=== PATIENT | female | born 1950 | race Caucasian/White ===

== ENCOUNTER → 2021-11-17 | Outpatient (CLI) | payer MEDICARE, OTHER, SELFPAY ==
[2021-11-17 17:09] LABS: Absolute Lymphocyte Count 2.11 X10^3/uL (0.83-4.51); Absolute Neutrophil Count 4.9 X10^3/uL (2.0-7.7); Basophil# 0.05 X10^3/uL; Basophil% 0.6 % (0-1); Eosinophils% 1.3 % (0-5); Hematocrit 43.8 % (37-47); Hemoglobin 15.3 g/dL (12.0-15.0); Lymphocyte # 2.11 X10^3/ul (0.83-4.51); Mean Corp Hgb Conc 34.9 g/dL (32-36); Mean Corpuscular Hgb 34.5 pg (27.0-32.0); Mean Corpuscular Volume 98.6 fL (81-99); Mean Platelet Vol. 8.9 fl (6.2-12.0); Monocyte# 0.62 X10^3/uL; Monocyte% 7.9 % (0-10); NRBC Flagged by Analyzer 0 % (0-5); Neutrophil # 4.93 X10^3/uL (2.7-7.7); Neutrophil % 63.1 % (47-70); Platelet Count 247 K/mm3 (150-450); RBC Distribution Width CV 12.2 % (11.6-14.6); RBC Distribution Width SD 44.5 fl (35.1-43.9); Red Blood Count 4.44 M/mm3 (4.2-5.4); White Blood Count 7.8 K/mm3 (4.4-11.0)
[2021-11-17 17:55] LABS: ALB/GLOB Ratio 1.2 RATIO (0.9-2.4); AST(SGOT) 20 U/L (15-37); Alanine Aminotransfer ALT/SGPT 22 U/L (13-56); Albumin, Serum 3.8 g/dL (3.2-5.0); Alkaline Phosphatase 111 U/L (45-117); Anion Gap 8 (5-15); BUN 14 mg/dL (7-18); BUN/Creat Ratio 14.1 RATIO (10-20); Calcium,Total 9.2 mg/dL (8.5-10.1); Chloride 105 mmol/L (98-107); Creatinine, Serum 0.99 mg/dL (0.55-1.02); EST Glomerular Filtration Rate 59 mL/min (>60); Est Glom Filt Rate - Afr Amer 71 mL/min (>60); Globulin 3.3 g/dL (2.2-4.2); Glucose 107 mg/dL (74-106); Potassium 3.5 mmol/L (3.5-5.1); Protein, Total 7.1 g/dL (6.4-8.2); Sodium Level 142 mmol/L (136-145); Thyroid Stim Hormone (TSH) 0.74 uIU/mL (0.358-3.74)
[2021-11-18 08:48] LABS: Hepatitis C Antibody Non-Reactive (Nonreactive)
== END | disposition home or self-care (01) ==
LOC: POLAB3 14:31
PROVIDERS: PCP Family Medicine Geriatric Medicine; Visit Provider Family Medicine Geriatric Medicine
DX: R53.83 Other fatigue (principal); Z13.89 Encounter for screening for other disorder
CPT/HCPCS: 36415; 80053; 84443; 85025; 86803

== ENCOUNTER → 2022-02-17 | Outpatient (CLI) | payer MEDICARE, OTHER, SELFPAY ==
[2022-02-17 17:05] LABS: Absolute Lymphocyte Count 1.44 X10^3/uL (0.83-4.51); Absolute Neutrophil Count 2.7 X10^3/uL (2.0-7.7); Basophil# 0.03 X10^3/uL; Basophil% 0.6 % (0-1); Eosinophil# 0.09 X10^3/uL; Eosinophils% 1.9 % (0-5); Hematocrit 39.7 % (37-47); Hemoglobin 13.4 g/dL (12.0-15.0); Lymphocyte # 1.44 X10^3/ul (0.83-4.51); Lymphocyte % 30.4 % (19-41); Mean Corp Hgb Conc 33.8 g/dL (32-36); Mean Corpuscular Hgb 33.2 pg (27.0-32.0); Mean Corpuscular Volume 98.3 fL (81-99); Mean Platelet Vol. 9.7 fl (6.2-12.0); Monocyte# 0.44 X10^3/uL; Monocyte% 9.3 % (0-10); NRBC Flagged by Analyzer 0 % (0-5); Neutrophil # 2.73 X10^3/uL (2.7-7.7); Neutrophil % 57.6 % (47-70); Platelet Count 231 K/mm3 (150-450); RBC Distribution Width CV 12.6 % (11.6-14.6); RBC Distribution Width SD 45.8 fl (35.1-43.9); Red Blood Count 4.04 M/mm3 (4.2-5.4); White Blood Count 4.7 K/mm3 (4.4-11.0)
[2022-02-17 17:40] LABS: Vitamin D,25 Hydroxy 46.1 ng/mL
[2022-02-17 18:06] LABS: ALB/GLOB Ratio 1.1 RATIO (0.9-2.4); AST(SGOT) 21 U/L (15-37); Alanine Aminotransfer ALT/SGPT 31 U/L (13-56); Albumin, Serum 3.5 g/dL (3.2-5.0); Alkaline Phosphatase 115 U/L (45-117); Anion Gap 6 (5-15); BUN 13 mg/dL (7-18); BUN/Creat Ratio 15.5 RATIO (10-20); Calcium,Total 8.7 mg/dL (8.5-10.1); Chloride 105 mmol/L (98-107); Creatinine, Serum 0.84 mg/dL (0.55-1.02); EST Glomerular Filtration Rate 71 mL/min (>60); Est Glom Filt Rate - Afr Amer 86 mL/min (>60); Globulin 3.1 g/dL (2.2-4.2); Glucose 172 mg/dL (74-106); Protein, Total 6.6 g/dL (6.4-8.2); Sodium Level 140 mmol/L (136-145); Thyroid Stim Hormone (TSH) 6.97 uIU/mL (0.358-3.74)
== END | disposition home or self-care (01) ==
LOC: POLAB3 15:03
PROVIDERS: PCP Family Medicine Geriatric Medicine; Visit Provider Family Medicine Geriatric Medicine
DX: E11.65 Type 2 diabetes mellitus with hyperglycemia (principal); I10 Essential (primary) hypertension; E55.9 Vitamin D deficiency, unspecified
CPT/HCPCS: 36415; 80053; 82306; 84443; 85025

== ENCOUNTER → 2022-03-03 | Outpatient (CLI) | payer MEDICARE, OTHER, SELFPAY ==
--- NOTE | 2022-03-03 14:24 | BD_ITS ---
STUDY: DUAL ENERGY X-RAY ABSORPTIOMETRY / DXA REASON FOR EXAM: Female, 71 years old. [id number] TECHNIQUE: Bone Mineral Density (BMD) measurements of lumbar spine and bilateral hips were obtained. COMPARISON: None. FINDINGS: Lumbar Spine (L1-L4): g/cm2 (1.125) / T-score (1.3) / Z-score (3.4) Findings are suggestive of normal bone density with a low fracture risk. Left Femur Total: g/cm2 (0.988) / T-score (0.4) / Z-score (1.9) Left Femoral Neck: g/cm2 (0.820) / T-score (-0.3) / Z-score (1.6) Right Femur Total: g/cm2 (0.960) / T-score (0.1) / Z-score (1.7) Right Femoral Neck: g/cm2 (0.823) / T-score (-0.2) / Z-score (1.6) BD/Dexa Bone Density Study IMPRESSION: The patient is considered normal as outlined below according to World [employer] Organization (WHO) criteria with a low fracture risk. Reference Information: The T-score is the number of standard deviations above or below the standard which is normal for young adults at their peak bone mineral density. The World Health Organization (WHO) interprets the T-scores as follows: Above -1 Normal bone density Between -1 and -2.5 Osteopenia Equal to / or below -2.5 Osteoporosis As a practical clinical guideline, osteopenia may be graded as follows: Mild -1 through -1.5 Moderate -1.6 through -2.0 Severe -2.1 through -2.4 The Z-score is the number of standard deviations above or below age-matched controls. A Z-score of less than -1.5 would be considered abnormal. References: 1. NIH Osteoporosis and Related Bone Diseases www osteo.org 2. International Society for Clinical Densitometry www iscd.org 3. National Osteoporosis Foundation www nof.org Electronically Signed: Aamir Bay MD at 12:41 EST ,
== END | disposition home or self-care (01) ==
LOC: OPBD 13:57
PROVIDERS: PCP Family Medicine Geriatric Medicine; Visit Provider Family Medicine Geriatric Medicine
DX: M85.80 Other specified disorders of bone density and structure, unspecified site (principal); Z78.0 Asymptomatic menopausal state
CPT/HCPCS: 77080

== ENCOUNTER → 2022-04-14 | Outpatient (CLI) | payer MEDICARE, OTHER, SELFPAY ==
--- NOTE | 2022-04-14 12:10 | RAD_ITS ---
STUDY: X-RAY - LEFT WRIST REASON FOR EXAM: Female, 71 years old. Pain. TECHNIQUE: 3 view(s) of the wrist were obtained. COMPARISON: None. FINDINGS: Osteopenia. Normal visualized distal radius and ulna. Normal radiocarpal articulation. Normal distal radioulnar articulation. Normal carpal bones. Mild arthrosis of the radial carpal row. Mild arthrosis of the first carpometacarpal joint. Normal second through fifth carpometacarpal articulations. Normal visualized metacarpal bones. The soft tissue structures are unremarkable. RAD/Wrist min 3 Views IMPRESSION: Mild arthrosis of the radial carpal row and first carpometacarpal joint. No other abnormality. Electronically Signed: Robert Lemus, at 9:26 EST ,
[2022-04-14 13:45] LABS: Thyroid Stim Hormone (TSH) 5.96 uIU/mL (0.358-3.74)
== END | disposition home or self-care (01) ==
PROVIDERS: PCP Family Medicine Geriatric Medicine; Visit Provider Family Medicine Geriatric Medicine
DX: E03.9 Hypothyroidism, unspecified (principal); M25.532 Pain in left wrist
CPT/HCPCS: 36415; 73110; 84443

== ENCOUNTER → 2022-04-22 | Outpatient (CLI) | payer MEDICARE, OTHER, SELFPAY ==
--- NOTE | 2022-04-22 | LES_PTH ---
PATIENT: TERENCE VALDIVIA LOC: [facility] U#:[id number] AGE/SX: 71/F ROOM: RE04/22/[address]: Dr. Fer Burr MD : 1950 BED: DIS: 04/22/2022 SPEC #: [id number] RECD: 04/22/22 17:46 STATUS: GERARDO RECarlos #: [id number] CARLOS: 04/22/22 00:[address]: Fer Burr DEPT: SURGICAL PATHOLOGY RECD BY: Julia Fernández ENTERED: 04/23/22 07:37 SP TYPE: Lesion OTHR DR: Dr. Will Lim MD Tissues: Skin of eyelid, NOS Procedures: Surgery Specimen Level IV HEADER OPERATION: RLL lesion PRE-OP DIAGNOSIS: RLL lesion TISSUE SUBMITTED: RLL lesion MICROSCOPIC DIAGNOSIS RLL lesion, biopsy: Dermal chronic inflammation. Negative for malignancy. See comment. INGRIS:mitesh 04/26/2022 COMMENT Clinical correlation and appropriate follow up are necessary. Case has been reviewed in consultation with Dr. Rodas who concurs with the above diagnosis. IDC:AM MICROSCOPIC DESCRIPTION Slides are reviewed. GROSS DESCRIPTION Received in fixative is one container labeled with the patient's name and designated RLL. The specimen consists of a minute piece of de la fuente-white skin measuring 0.1 x 0.1 x 0.1 cm. The entire specimen is submitted in one cassette. / SJ:rg 04/23/2022 TC:3 CPT: 45225
== END | disposition home or self-care (01) ==
PROVIDERS: PCP Family Medicine Geriatric Medicine; Visit Provider Ophthalmology
DX: R91.1 Solitary pulmonary nodule (principal)
CPT/HCPCS: 88305

== ENCOUNTER 2022-04-30 11:08 | Emergency (ER) | payer MEDICARE, OTHER, SELFPAY ==
[2022-04-30 11:10] VITALS: BP 133/81; PULSE 75; RESP 18; TEMP 36.4; O2SAT 97; BMI 29.9
--- NOTE | 2022-04-30 11:24 | EDS_ITS ---
HPI <WILL Negrete - Last Filed: 04/30/22 12:00> History of Present Illness Chief Complaint: Back Narrative Narrative: Patient presents today with back pain that is located under her right shoulder blade that she has had constantly since Tuesday. She states that it is a constant ache and feels that the pain is worsening. The pain is aggravated by movement and not relieved by Tylenol. She states that she is in the process of moving up here from [place] and has been lifting a lot of boxes and rearranging furniture in her new house. Past medical history includes diabetes mellitus, hypertension, hypothyroidism, and depression. She denies any injury to her back, chest pain, shortness of breath, nausea, abdominal pain, vomiting, neck pain, and any tingling/pain in her extremities. [facility] <WILL Negrete - Last Filed: 04/30/22 12:00> [facility] Medical History Type 2 diabetes mellitus Home Medications cyclobenzaprine 10 mg tablet 10 mg PO BID PRN muscle spasm #14 TABLETS 04/30/22 [Rx Last Taken Unknown] levothyroxine 137 mcg tablet 137 mcg PO DAILY 04/30/22 [History Last Taken Unknown] losartan 50 mg tablet 50 mg PO DAILY 04/30/22 [History Last Taken Unknown] multivitamin 1 tab PO DAILY 04/30/22 [History Last Taken Unknown] naproxen 500 mg tablet (Naprosyn) 500 mg PO BID PRN pain #14 tabs 04/30/22 [Rx Last Taken Unknown] solifenacin 10 mg tablet 10 mg PO DAILY 04/30/22 [History Last Taken Unknown] venlafaxine 75 mg capsule,extended release 24 hr 75 mg PO DAILY 04/30/22 [History Last Taken Unknown] vitamins A,C,X-gyay-guccol 2,148 mcg-113 mg-45 mg-17.4 mg tablet (PreserVision AREDS) 2 tab PO DAILY 04/30/22 [History Last Taken Unknown] Allergy/AdvReac Type Severity Reaction Status Date / Time bee venom protein (honey bee) Allergy Swelling Verified 04/30/22 11:16 [bee stings] codeine Allergy Nausea Verified 04/30/22 11:16 Tetanus Vaccines and Toxoid Allergy Swelling Verified 04/30/22 11:16 Social History Smoking Status: Never smoker ROS <WILL Negrete - Last Filed: 04/30/22 12:00> ROS ED Constitutional Constitutional ED: Denies chills, fever(s) or sweats Eyes Eyes: Denies blurry vision or diplopia Cardiovascular Cardiovascular: Denies chest pain or palpitations Respiratory/Chest Respiratory/Chest: Denies cough or dyspnea Gastrointestinal Gastrointestinal: Denies abdominal pain, nausea or vomiting Genitourinary Genitourinary ED: Denies dysuria, hematuria or urinary urgency Musculoskeletal Musculoskeletal: Reports back pain; Denies neck pain Integumentary Denies abscess, Abrasions or rash Neurologic Neurologic: Denies confusion, dizziness, paresthesias or weakness Psychiatric Psychiatric: Denies anxiety or depression Allergic/Immunologic Allergic/Immunologic ED: Denies lip swelling, mouth swelling or urticaria EXAM <WILL Negrete - Last Filed: 04/30/22 12:00> Physical Exam Const Vital Signs: 04/30/22 11:10 04/30/22 11:50 Temperature 97.5 F L Temperature Source Temporal Pulse Rate 75 69 Respiratory Rate 18 17 Blood Pressure 133/81 H 158/80 H Blood Pressure Mean 98 Pulse Ox 97 96 Oxygen Delivery Method Room Air Positive well nourished and well developed General Appearance ED: well developed and NAD HEENT Reports normocephalic and head/scalp atraumatic Mouth ED: Yes moist mucous membranes normal Eyes PERRL and EOMs intact bilaterally Neck full ROM and supple Chest Wall inspection of chest normal Resp normal respiratory effort and clear to auscultation bilaterally Cardio regular rate and regular rhythm GI soft to palpation, non-tender, non-distended and no masses Back/Spine normal ROM and normal to inspection Cervical Spine: Negative for cervical spine tenderness and Negative for paracervical muscle tenderness Thoracic Spine / Upper Back: paraspinal muscle tenderness Extremity normal to inspection and full ROM Neuro oriented x3, CN's II-XII intact bilaterally, moves all extremities, no focal motor deficits and no sensory deficits noted Sensorium / Orientation: awake and alert Motor Exam: strength 5/5 throughout Psych mental status grossly normal and thought process normal Skin no rashes or lesions noted and no wounds <Dr. David Craig DO - Last Filed: 04/30/22 11:58> Physical Exam Const Vital Signs: 04/30/22 11:10 04/30/22 11:50 Temperature 97.5 F L Temperature Source Temporal Pulse Rate 75 69 Respiratory Rate 18 17 Blood Pressure 133/81 H 158/80 H Blood Pressure Mean 98 Pulse Ox 97 96 Oxygen Delivery Method Room Air [facility] <WILL Negrete - Last Filed: 04/30/22 12:00> [facility] Narrative Medical decision making narrative: Patient presents today with pain located under her right shoulder blade and her back that she has had since Tuesday. She is nontoxic-appearing and in no acute distress. She describes it as a constant ache that is worsened with movement. She is in the process of moving from [place] and has been lifting a lot of heavy boxes as well as rearranging furniture in her new home. She has no paresthesias, weakness, or fever. She does not have any bony tenderness along the length of her spine. No bony tenderness to her scapula or rib cage. No erythema/ecchymosis to area. She does have tenderness to the paraspinal muscles in the thoracic region of her back. She will be given a Flexeril here as well as naproxen for pain. She will be given a prescription for these for home. She will be discharged home in stable condition and has been given return instructions. She is comfortable with plan. <Dr. David Craig DO - Last Filed: 04/30/22 11:58> [facility] Treatment and Re-Evaluation Narrative: I have personally performed a face to face assessment of the patient and have reviewed the PRIYANK Note. I performed a substantive portion of the visit including all aspects of the following. My mejia findings include: History: Patient presents with right thoracic back pain that has been getting worse over the past few days. Patient states it is gradually gotten worse. Patient states she has been doing a lot of lifting and moving things recently. Patient states her pain is worse with certain positions and better in other positions. Patient states she has frequent falls but denies any recent falls where she felt like she may have broken anything. Patient denies any shortness of breath. Patient denies any nausea or vomiting. Patient denies any radiation of her pain. Patient denies any bowel or bladder changes. Patient denies any saddle anesthesia. Exam: Vital signs are stable. Patient is afebrile. Patient is in no acute distress. Musculoskeletal exam reveals tenderness and spasm of the mid to lower right thoracic paraspinal muscles. There is no edema or ecchymosis. There is no bony crepitance or step-off noted. Range of motion was limited in all motions of the thoracic spine secondary to pain. Strength is 5/5 bilateral in the upper and lower extremities. There are no sensory deficits noted. Heart was regular rate and rhythm. Lungs are clear and equal bilaterally. Medical Decision Making: Patient was advised that this is most likely a muscular strain of her thoracic paraspinal muscles. Patient was instructed to use ice to the area. Patient was given a dose of Naprosyn and Flexeril here. Patient was given prescriptions for the same. Patient was instructed to follow-up with her primary care physician in 5 to 7 days. Patient understood and was agreeable with the plan. All questions were answered. Discharge Plan Triage Chief Complaint: Back ED Midlevel Provider: Inga Baumann ED Provider: David Craig Dx/Rx/DC Orders Clinical Impression: Muscle strain of right upper back Prescriptions: New naproxen [Naprosyn] 500 mg tablet 500 mg PO BID PRN (Reason: pain) Qty: 14 0RF cyclobenzaprine 10 mg tablet 10 mg PO BID PRN (Reason: muscle spasm) Qty: 14 0RF No Action multivitamin Tablet 1 tab PO DAILY losartan 50 mg tablet 50 mg PO DAILY levothyroxine 137 mcg Tablet 137 mcg PO DAILY venlafaxine 75 mg Capsule,Extended Release 24hr 75 mg PO DAILY solifenacin 10 mg Tablet 10 mg PO DAILY PreserVision AREDS 2,148 mcg-113 mg-45 mg-17.4mg tablet 2 tab PO DAILY Label Comments: twice a day Primary Care Provider: Will Lim Chi Referrals: Will Lim Chi, MD [Primary Care Provider] - 3-5 Days Activity Restrictions/Additional Instructions: Please follow-up with your PCP. Return for any worsening of symptoms. Do not take the Flexeril and drive, it may make you drowsy. Disposition Disposition: Home, Self Care
[2022-04-30] MEDS: cycloBENZAPRine HCl 10 MG Tablet PO (11:35)
[2022-04-30 11:50] VITALS: BP 158/80; PULSE 69; RESP 17; O2SAT 96
== END 2022-04-30 12:00 | disposition home or self-care (01) ==
LOC: ED 12:23
PROVIDERS: Emergency Provider Emergency Medicine; PCP Family Medicine Geriatric Medicine; Visit Provider Emergency Medicine
DX: S39.012A Strain of muscle, fascia and tendon of lower back, initial encounter (principal); E11.9 Type 2 diabetes mellitus without complications; M25.511 Pain in right shoulder; I10 Essential (primary) hypertension; E03.9 Hypothyroidism, unspecified; F32.A Depression, unspecified; X50.0XXA Overexertion from strenuous movement or load, initial encounter
CPT/HCPCS: 99283

== ENCOUNTER → 2022-05-24 | Outpatient (CLI) | payer MEDICARE, OTHER, SELFPAY ==
--- NOTE | 2022-05-24 14:23 | RAD_ITS ---
STUDY: X-RAY - LEFT KNEE REASON FOR EXAM: Female, 71 years old. OSTEOARTHRITIS TECHNIQUE: 3 view(s) of the knee. COMPARISON: None. FINDINGS: Degenerative spur formation. Normal visualized proximal tibia and fibula. Normal proximal tibiofibular articulation. There is severe degenerative arthrosis of the medial femorotibial compartment with severe joint space narrowing. Normal lateral femorotibial compartment. There is moderate degenerative arthrosis of the patellofemoral articulation. The soft tissue structures are unremarkable. RAD/Knee 3 Views IMPRESSION: Degenerative arthrosis. Electronically Signed: Aamir Bay MD at 15:28 EDT ,
[2022-05-24 14:33] LABS: Absolute Lymphocyte Count 2.12 X10^3/uL (0.83-4.51); Absolute Neutrophil Count 3.5 X10^3/uL (2.0-7.7); Basophil# 0.07 X10^3/uL; Basophil% 1.1 % (0-1); Eosinophil# 0.09 X10^3/uL; Eosinophils% 1.4 % (0-5); Hematocrit 44.7 % (37-47); Hemoglobin 15.4 g/dL (12.0-15.0); Lymphocyte # 2.12 X10^3/ul (0.83-4.51); Lymphocyte % 33.3 % (19-41); Mean Corp Hgb Conc 34.5 g/dL (32-36); Mean Corpuscular Hgb 33.3 pg (27.0-32.0); Mean Corpuscular Volume 96.5 fL (81-99); Mean Platelet Vol. 8.9 fl (6.2-12.0); Monocyte# 0.57 X10^3/uL; Monocyte% 8.9 % (0-10); NRBC Flagged by Analyzer 0 % (0-5); Neutrophil # 3.51 X10^3/uL (2.7-7.7); Neutrophil % 55.1 % (47-70); Platelet Count 289 K/mm3 (150-450); RBC Distribution Width SD 42.5 fl (35.1-43.9); Red Blood Count 4.63 M/mm3 (4.2-5.4); White Blood Count 6.4 K/mm3 (4.4-11.0)
[2022-05-24 15:21] LABS: ALB/GLOB Ratio 1.2 RATIO (0.9-2.4); AST(SGOT) 30 U/L (15-37); Alanine Aminotransfer ALT/SGPT 54 U/L (13-56); Alkaline Phosphatase 134 U/L (45-117); Anion Gap 3 (5-15); BUN 12 mg/dL (7-18); Calcium,Total 9.3 mg/dL (8.5-10.1); Chloride 106 mmol/L (98-107); EST Glomerular Filtration Rate 58 mL/min (>60); Est Glom Filt Rate - Afr Amer 70 mL/min (>60); Globulin 3.3 g/dL (2.2-4.2); Glucose 139 mg/dL (74-106); Potassium 4.1 mmol/L (3.5-5.1); Protein, Total 7.3 g/dL (6.4-8.2); Sodium Level 139 mmol/L (136-145); Thyroid Stim Hormone (TSH) 0.58 uIU/mL (0.358-3.74)
== END | disposition home or self-care (01) ==
LOC: LAB 13:56
PROVIDERS: PCP Family Medicine Geriatric Medicine; Referring Provider Family Medicine Geriatric Medicine; Visit Provider Family Medicine Geriatric Medicine
DX: E03.9 Hypothyroidism, unspecified (principal); E11.65 Type 2 diabetes mellitus with hyperglycemia; E55.9 Vitamin D deficiency, unspecified; I10 Essential (primary) hypertension; M17.12 Unilateral primary osteoarthritis, left knee
CPT/HCPCS: 36415; 73562; 80053; 82306; 84443; 85025

== ENCOUNTER → 2022-08-24 | Outpatient (CLI) | payer MEDICARE, OTHER, SELFPAY ==
[2022-08-24 17:08] LABS: Absolute Lymphocyte Count 2.12 X10^3/uL (0.83-4.51); Absolute Neutrophil Count 4.5 X10^3/uL (2.0-7.7); Basophil# 0.04 X10^3/uL; Basophil% 0.5 % (0-1); Eosinophil# 0.09 X10^3/uL; Eosinophils% 1.2 % (0-5); Hemoglobin 15.7 g/dL (12.0-15.0); Lymphocyte # 2.12 X10^3/ul (0.83-4.51); Lymphocyte % 28.5 % (19-41); Mean Corp Hgb Conc 35.7 g/dL (32-36); Mean Corpuscular Hgb 33.8 pg (27.0-32.0); Mean Corpuscular Volume 94.8 fL (81-99); Monocyte# 0.66 X10^3/uL; Monocyte% 8.9 % (0-10); NRBC Flagged by Analyzer 0 % (0-5); Neutrophil # 4.51 X10^3/uL (2.7-7.7); Neutrophil % 60.8 % (47-70); Platelet Count 253 K/mm3 (150-450); RBC Distribution Width CV 12.1 % (11.6-14.6); RBC Distribution Width SD 41.8 fl (35.1-43.9); Red Blood Count 4.64 M/mm3 (4.2-5.4); White Blood Count 7.4 K/mm3 (4.4-11.0)
[2022-08-24 17:59] LABS: Vitamin D,25 Hydroxy 35.1 ng/mL
[2022-08-24 18:09] LABS: ALB/GLOB Ratio 1.1 RATIO (0.9-2.4); AST(SGOT) 28 U/L (15-37); Alanine Aminotransfer ALT/SGPT 54 U/L (13-56); Albumin, Serum 3.8 g/dL (3.2-5.0); Alkaline Phosphatase 145 U/L (45-117); Anion Gap 6 (5-15); BUN 16 mg/dL (7-18); Calcium,Total 9.5 mg/dL (8.5-10.1); Chloride 104 mmol/L (98-107); Creatinine, Serum 0.94 mg/dL (0.55-1.02); EST Glomerular Filtration Rate 62 mL/min (>60); Est Glom Filt Rate - Afr Amer 75 mL/min (>60); Globulin 3.6 g/dL (2.2-4.2); Glucose 197 mg/dL (74-106); Protein, Total 7.4 g/dL (6.4-8.2); Sodium Level 138 mmol/L (136-145); Thyroid Stim Hormone (TSH) 0.43 uIU/mL (0.358-3.74)
== END | disposition home or self-care (01) ==
LOC: LAB 16:55
PROVIDERS: PCP Family Medicine Geriatric Medicine; Referring Provider Family Medicine Geriatric Medicine; Visit Provider Family Medicine Geriatric Medicine
DX: E11.65 Type 2 diabetes mellitus with hyperglycemia (principal); I10 Essential (primary) hypertension; E55.9 Vitamin D deficiency, unspecified
CPT/HCPCS: 36415; 80053; 82306; 84443; 85025

== ENCOUNTER → 2022-11-22 | Outpatient (CLI) | payer MEDICARE, OTHER, SELFPAY ==
[2022-11-22 14:38] LABS: Absolute Lymphocyte Count 1.68 X10^3/uL (0.83-4.51); Absolute Neutrophil Count 3.6 X10^3/uL (2.0-7.7); Basophil# 0.05 X10^3/uL; Basophil% 0.8 % (0-1); Eosinophil# 0.07 X10^3/uL; Eosinophils% 1.2 % (0-5); Hematocrit 42.7 % (37-47); Hemoglobin 14.5 g/dL (12.0-15.0); Lymphocyte # 1.68 X10^3/ul (0.83-4.51); Lymphocyte % 28.2 % (19-41); Mean Corpuscular Hgb 32.8 pg (27.0-32.0); Mean Corpuscular Volume 96.6 fL (81-99); Mean Platelet Vol. 9.3 fl (6.2-12.0); Monocyte# 0.52 X10^3/uL; Monocyte% 8.7 % (0-10); NRBC Flagged by Analyzer 0 % (0-5); Neutrophil # 3.62 X10^3/uL (2.7-7.7); Neutrophil % 60.9 % (47-70); Platelet Count 265 K/mm3 (150-450); RBC Distribution Width SD 43.1 fl (35.1-43.9); Red Blood Count 4.42 M/mm3 (4.2-5.4)
[2022-11-22 14:59] LABS: ALB/GLOB Ratio 1.2 RATIO (0.9-2.4); AST(SGOT) 27 U/L (15-37); Alanine Aminotransfer ALT/SGPT 53 U/L (13-56); Albumin, Serum 3.8 g/dL (3.2-5.0); Alkaline Phosphatase 129 U/L (45-117); Anion Gap 5 (5-15); BUN 13 mg/dL (7-18); BUN/Creat Ratio 15.5 RATIO (10-20); Calcium,Total 8.9 mg/dL (8.5-10.1); Chloride 107 mmol/L (98-107); Creatinine, Serum 0.84 mg/dL (0.55-1.02); EST Glomerular Filtration Rate 71 mL/min (>60); Est Glom Filt Rate - Afr Amer 86 mL/min (>60); Globulin 3.3 g/dL (2.2-4.2); Glucose 114 mg/dL (74-106); Potassium 3.9 mmol/L (3.5-5.1); Protein, Total 7.1 g/dL (6.4-8.2); Sodium Level 141 mmol/L (136-145); Thyroid Stim Hormone (TSH) 0.08 uIU/mL (0.358-3.74)
[2022-11-22 18:44] LABS: Vitamin D,25 Hydroxy 39.3 ng/mL
== END | disposition home or self-care (01) ==
LOC: POLAB3 13:45
PROVIDERS: PCP Family Medicine Geriatric Medicine; Visit Provider Family Medicine Geriatric Medicine
DX: E11.65 Type 2 diabetes mellitus with hyperglycemia (principal); I10 Essential (primary) hypertension; E55.9 Vitamin D deficiency, unspecified
CPT/HCPCS: 36415; 80053; 82306; 84443; 85025

== ENCOUNTER → 2022-11-24 | Outpatient (CLI) | payer MEDICARE, OTHER, SELFPAY ==
--- NOTE | 2022-11-24 12:05 | BI_ITS ---
MAMMOGRAPHY - BILATERAL SCREENING REASON FOR EXAM: Female, 71 years old. Routine annual screening examination. PERTINENT HISTORY: Mother with breast cancer. Aunt with breast cancer. TECHNIQUE: Digital bilateral breast mckinley (3D mammographic acquisition) in the CC and MLO projections. 2-D mediolateral oblique (MLO) and craniocaudad (CC) views of both breasts were obtained. CAD: Full Field Digital Mammography with Computer Added Detection was performed. COMPARISON: Comparison is made with prior outside examination of September 21, 2018. FINDINGS: Breast Composition: There are scattered areas of fibroglandular density. There are no dominant masses or suspicious calcifications. Stable small benign-appearing bilateral axillary lymph nodes. No other significant abnormalities are identified. There has been no significant change since the prior study. BI/SCRN MAMM (CAD)W/MCKINLEY BILAT IMPRESSION: Stable bilateral screening mammogram. Yearly follow-up mammogram recommended. (A) ASSESSMENT CATEGORY: BIRADS Category 2: Benign. A letter regarding these results will be sent to the patient by the facility within 30 days. Approximately 10% of breast cancers are not detected by mammography. A normal mammogram should not delay biopsy of a clinically suspicious abnormality. [id number] Electronically Signed: Aamir Bay MD at 14:28 EDT ,
== END | disposition home or self-care (01) ==
LOC: OPBI 12:03
PROVIDERS: PCP Family Medicine Geriatric Medicine; Visit Provider Family Medicine Geriatric Medicine
DX: Z12.31 Encounter for screening mammogram for malignant neoplasm of breast (principal)
CPT/HCPCS: 77063; 77067

== ENCOUNTER → 2023-01-13 | Outpatient (CLI) | payer MEDICARE, OTHER, SELFPAY ==
[2023-01-13 15:13] LABS: Thyroid Stim Hormone (TSH) 0.25 uIU/mL (0.358-3.74)
== END | disposition home or self-care (01) ==
LOC: LAB 01-14 09:44
PROVIDERS: PCP Family Medicine Geriatric Medicine; Visit Provider Family Medicine Geriatric Medicine
DX: E03.9 Hypothyroidism, unspecified (principal)
CPT/HCPCS: 36415; 84443

== ENCOUNTER 2023-02-01 12:12 | Emergency (ER) | payer MEDICARE, OTHER, SELFPAY ==
[2023-02-01 12:14] VITALS: BP 157/77; PULSE 77; RESP 16; TEMP 36.2; O2SAT 100; BMI 30.2
--- NOTE | 2023-02-01 12:26 | RAD_ITS ---
STUDY: X-RAY - RIGHT SHOULDER REASON FOR EXAM: Female, 72 years old. R shoulder pain TECHNIQUE: 4 view(s) of the shoulder. COMPARISON: None. FINDINGS: Normal glenohumeral articulation. Normal acromioclavicular joint. Normal acromion. Postoperative changes are seen of the humeral head with a metallic screw. The soft tissue structures are unremarkable. Normal visualized pulmonary apex. RAD/Shoulder min 2 Views IMPRESSION: No acute abnormality is seen. Electronically Signed: Aamir Bay MD at 13:03 EST ,
--- NOTE | 2023-02-01 12:32 | EDS_ITS ---
HPI <WILL Negrete - Last Filed: 02/01/23 13:53> History of Present Illness Chief Complaint: Upper Extremity Injury Narrative Narrative: Patient presenting today with right shoulder pain that she has had over the past few weeks. She reports that she was pulling on a gate forcefully and has had residual pain in her right shoulder since. However, few days ago she had a mechanical fall and fell backwards on the groud and the pain in her shoulder has been worse since. She does report right-sided neck pain as well without any radicular symptoms. PFSH <WILL Negrete - Last Filed: 02/01/23 13:53> [facility] Medical History (Updated 02/01/23 @ 13:09 by Ani Ferro) Right shoulder tendonitis Type 2 diabetes mellitus Home Medications levothyroxine 137 mcg tablet 137 mcg PO DAILY 04/30/22 [History Last Taken Unknown] losartan 50 mg tablet 50 mg PO DAILY 04/30/22 [History Last Taken Unknown] multivitamin 1 tab PO DAILY 04/30/22 [History Last Taken Unknown] naproxen 500 mg tablet (Naprosyn) 500 mg PO BID PRN pain #14 tabs 04/30/22 [Rx Last Taken Unknown] solifenacin 10 mg tablet 10 mg PO DAILY 04/30/22 [History Last Taken Unknown] venlafaxine 75 mg capsule,extended release 24 hr 75 mg PO DAILY 04/30/22 [History Last Taken Unknown] vitamins A,C,O-khhv-bhzphw 2,148 mcg-113 mg-45 mg-17.4 mg tablet (PreserVision AREDS) 2 tab PO DAILY 04/30/22 [History Last Taken Unknown] semaglutide 0.25 mg or 0.5 mg (2 mg/3 mL) subcutaneous pen injector (Ozempic) 0.25 mg subcut QWEEK 02/01/23 [History Last Taken Unknown] Allergy/AdvReac Type Severity Reaction Status Date / Time bee venom protein (honey bee) Allergy Swelling Verified 02/01/23 12:13 [bee stings] codeine Allergy Nausea Verified 02/01/23 12:13 Tetanus Vaccines and Toxoid Allergy Swelling Verified 02/01/23 12:13 Social History Smoking Status: Never smoker ROS <WILL Negrete - Last Filed: 02/01/23 13:53> ROS ED Constitutional Constitutional ED: Denies chills or fever(s) Eyes Eyes: Denies change in vision Cardiovascular Cardiovascular: Denies chest pain Respiratory/Chest Respiratory/Chest: Denies cough or dyspnea Gastrointestinal Gastrointestinal: Denies abdominal pain, nausea or vomiting Musculoskeletal Musculoskeletal: Reports arthralgias and neck pain; Denies back pain Integumentary Denies Abrasions Neurologic Neurologic: Denies paresthesias or weakness EXAM <WILL Negrete Last Filed: 02/01/23 13:53> Physical Exam Const Vital Signs: 02/01/23 12:14 Temperature 97.2 F L Temperature Source Temporal Pulse Rate 77 Respiratory Rate 16 Blood Pressure 157/77 H Blood Pressure Mean 103 Pulse Ox 100 Oxygen Delivery Method Room Air Positive well nourished, well developed and no apparent distress General Appearance ED: well developed HEENT Reports normocephalic and head/scalp atraumatic Mouth ED: Yes moist mucous membranes normal Eyes PERRL and EOMs intact bilaterally Neck full ROM and supple Neck Narrative: Right-sided paracervical and right trapezius tenderness to palpation, no midline cervical tenderness. Chest Wall inspection of chest normal Resp normal respiratory effort and clear to auscultation bilaterally Cardio regular rate and regular rhythm GI soft to palpation, non-tender, non-distended and no masses Back/Spine normal ROM and normal to inspection Extremity normal to inspection Extremity Narrative: FUll range of motion to the right shoulder, pain with abduction, pain to the right AC joint and right sternoclavicular joint. No pain along the right clavicle. Neuro oriented x3, CN's II-XII intact bilaterally, moves all extremities, no focal motor deficits and no sensory deficits noted Sensorium / Orientation: awake and alert Psych mental status grossly normal and thought process normal Skin no rashes or lesions noted and no wounds MDM <WILL Negrete - Last Filed: 02/01/23 13:53> MDM MDM Narrative Medical decision making narrative: Patient presenting due to right shoulder pain. She has full range of motion, pain with abduction. Pain to the right AC joint and right sternoclavicular joint. No pain along the clavicle. X-ray of the shoulder and clavicle be obtained and are unremarkable. Suspect that patient has some degree of shoulder strain. She will be given an orthopedic referral and RICE instructions. She will be discharged home in stable condition and is comfortable with plan. I have personally performed a face to face assessment of the patient and have reviewed the PRIYANK Note. I performed a substantive portion of the visit including all aspects of the following. My mejia findings include: History is 72-year-old female. [id number]. Prior shoulder surgery for torn tendon done in [place]. She was pulling on a gate to get at the open and felt discomfort in her shoulder. She is also had a recent fall but fell backwards. She can move the arm is just uncomfortable. Exam is [well-appearing 72-year-old female. No acute distress. Vital signs stable afebrile. HEENT exam unremarkable. Neck left side paracervical tenderness. No spinal tenderness. Back otherwise nontender. Lungs clear to auscultation bilaterally. Heart regular rhythm. Right shoulder mild tenderness. However she is able to do full flexion extension of the shoulder. Full AB and adduction just with discomfort when she raises over her arm but she is able to raise it over her arm. Elbow is nontender nonswollen. Normal flexion extension. Wrist nontender nonswollen normal flexion extension. Normal guest relations agent strength. Normal radial pulse. She has reproducible tenderness to the shoulder and the clavicle without deformity. Otherwise exam unremarkable. Soft nontender. Left upper and both lower extremities are nontender. She is awake and alert.] Medical Decision Making [x-ray of the right shoulder and clavicle shows no acute fracture or dislocation. Suspect right shoulder strain. Follow-up with orthopedics if not improving.] Other additions or changes: [None] <Dr. Ronak Sarmiento MD - Last Filed: 02/01/23 13:15> [facility] Narrative Medical decision making narrative: I have personally performed a face to face assessment of the patient and have reviewed the PRIYANK Note. I performed a substantive portion of the visit including all aspects of the following. My mejia findings include: History is 72-year-old female. [id number]. Prior shoulder surgery for torn tendon done in [place]. She was pulling on a gate to get at the open and felt discomfort in her shoulder. She is also had a recent fall but fell backwards. She can move the arm is just uncomfortable. Exam is [well-appearing 72-year-old female. No acute distress. Vital signs stable afebrile. HEENT exam unremarkable. Neck left side paracervical tenderness. No spinal tenderness. Back otherwise nontender. Lungs clear to auscultation bilaterally. Heart regular rhythm. Right shoulder mild tenderness. However she is able to do full flexion extension of the shoulder. Full AB and adduction just with discomfort when she raises over her arm but she is able to raise it over her arm. Elbow is nontender nonswollen. Normal flexion extension. Wrist nontender nonswollen normal flexion extension. Normal guest relations agent strength. Normal radial pulse. She has reproducible tenderness to the shoulder and the clavicle without deformity. Otherwise exam unremarkable. Soft nontender. Left upper and both lower extremities are nontender. She is awake and alert.] Medical Decision Making [x-ray of the right shoulder and clavicle shows no acute fracture or dislocation. Suspect right shoulder strain. Follow-up with orthopedics if not improving.] Other additions or changes: [None] History & Record Review Discussion w/independent historian: Patient and Family Radiography Diagnostic Testing: Right shoulder x-ray 4 views, interpreted by myself and radiologist shows no acute abnormality. No fracture or dislocation. Clavicle appears normal. Discharge Plan Triage Chief Complaint: Upper Extremity Injury ED Midlevel Provider: Inga Baumann ED Provider: Ronak Sarmiento Dx/Rx/DC Orders Clinical Impression: Shoulder pain, right, Neck muscle strain Instructions: ED Neck Sprain or Strain, ED Shoulder Pain, Uncertain Cause Prescriptions: No Action multivitamin Tablet 1 tab PO DAILY losartan 50 mg tablet 50 mg PO DAILY levothyroxine 137 mcg Tablet 137 mcg PO DAILY venlafaxine 75 mg Capsule,Extended Release 24hr 75 mg PO DAILY solifenacin 10 mg Tablet 10 mg PO DAILY PreserVision AREDS 2,148 mcg-113 mg-45 mg-17.4mg tablet 2 tab PO DAILY Patient Comments: twice a day naproxen [Naprosyn] 500 mg tablet 500 mg PO BID PRN (Reason: pain) Qty: 14 0RF Ozempic 0.25 mg or 0.5 mg (2 mg/3 mL) pen injector 0.25 mg subcut QWEEK Rx Instructions: for 4 weeks Primary Care Provider: Will Lim Chi Referrals: Turner Zavala DO [Med Staff - Active Staff] - 1 Week if not improving Will Lim Chi, MD [Primary Care Provider] - 5-7 Days Activity Restrictions/Additional Instructions: Follow-up with your PCP and return for any worsening of your symptoms. You can take Tylenol as needed for your pain. Ice your shoulder several times a day for the next few days. Disposition Disposition: Home, Self Care Discharge Date/Time: 02/01/23 13:19
--- NOTE | 2023-02-01 12:38 | RAD_ITS ---
STUDY: X-RAY - RIGHT CLAVICLE REASON FOR EXAM: Female, 72 years old. Pain following injury. TECHNIQUE: 2 view(s) of the clavicle. COMPARISON: None. FINDINGS: Normal clavicle. Normal acromioclavicular articulation. Normal visualized sternoclavicular articulation. Metallic clip is seen in the humeral head suggestive of prior tendon repair. Normal visualized pulmonary apex. RAD/Clavicle IMPRESSION: No acute abnormality is seen. Electronically Signed: Aamir Bay MD at 13:03 EST ,
[2023-02-01 13:18] VITALS: PULSE 82; RESP 16
== END 2023-02-01 13:19 | disposition home or self-care (01) ==
PROVIDERS: Emergency Provider Emergency Medicine; PCP Family Medicine Geriatric Medicine; Referring Provider Emergency Medicine; Visit Provider Emergency Medicine
DX: S16.1XXA Strain of muscle, fascia and tendon at neck level, initial encounter (principal); E11.9 Type 2 diabetes mellitus without complications; M25.511 Pain in right shoulder; W18.30XA Fall on same level, unspecified, initial encounter; Z79.85 Long-term (current) use of injectable non-insulin antidiabetic drugs
CPT/HCPCS: 73000; 73030; 99282

== ENCOUNTER → 2023-03-07 | Outpatient (CLI) | payer MEDICARE, OTHER, SELFPAY ==
--- NOTE | 2023-03-07 14:45 | MRI_ITS ---
EXAM: MR CERVICAL SPINE WITHOUT INTRAVENOUS CONTRAST CLINICAL INDICATION: Cervical myelopathy TECHNIQUE: Multiplanar and multisequence MR images of the cervical spine without intravenous contrast were performed. COMPARISON: No relevant prior studies available. FINDINGS: VERTEBRAE: Loss of the normal cervical lordosis which may be due to muscle spasm or head positioning. No significant compression of the cervical vertebral bodies. No bone marrow edema. SPINAL CORD: Unremarkable in signal and morphology. SOFT TISSUES: Normal. No prevertebral soft tissue swelling. LYMPH NODES: Normal. There is no cervical adenopathy. DISCS/SPINAL CANAL/NEURAL FORAMINA: C2-C3: Normal. Normal disc height and morphology. Normal spinal canal. Normal neuroforamina. C3-C4: No significant disc space narrowing. Mild central disc bulging and facet arthropathy. Intact spinal canal and neural foramina. C4-C5: Mild disc space narrowing and facet arthropathy. Central disc protrusion causes mild compression of the thecal sac. Intact neural foramina. C5-C6: Prominent disc space narrowing and facet arthropathy. Circumferential disc osteophyte complex causes mild compression of the thecal sac and mild narrowing of the neural foramina. C6-C7: Moderate disc space narrowing and facet arthropathy. Broad-based disc osteophyte complex causes minimal impression on the thecal sac. Intact neural foramina. C7-T1: [id number] disc space narrowing localized thickening of the posterior longitudinal ligament without compression of the thecal sac. Intact neural foramina. MRI/Spine Cervical (Routine) IMPRESSION: Prominent disc degeneration at C5-6 and C6-7. No significant spinal or neural foraminal stenosis Electronically Signed: Juancarlos Briceño MD at 9:04 EST ,
== END | disposition home or self-care (01) ==
LOC: MRI 13:55
PROVIDERS: PCP Family Medicine Geriatric Medicine; Referring Provider Orthopaedic Surgery Orthopaedic Surgery of the Spine; Visit Provider Orthopaedic Surgery Orthopaedic Surgery of the Spine
DX: G95.9 Disease of spinal cord, unspecified (principal)
CPT/HCPCS: 72141

== ENCOUNTER → 2023-03-28 | Outpatient (CLI) | payer MEDICARE, OTHER, SELFPAY ==
--- NOTE | 2023-03-28 14:45 | MRI_ITS ---
STUDY: MRI RIGHT SHOULDER REASON FOR EXAM: Female, 72 years old. Pain, rule out cuff tear, metal anchor in place. TECHNIQUE: Standardized fat and water weighted pulse sequences were obtained in all 3 orthogonal planes. COMPARISON: Right shoulder radiographs dated 02/01/2023. FINDINGS: There are postoperative changes related to rotator cuff repair surgery, with anchors in the humeral head. There is supraspinatus, infraspinatus, and subscapularis tendinosis without a full-thickness tear. Normal teres minor tendon. Normal supraspinatus muscle. Normal infraspinatus muscle. Normal subscapularis muscle. Normal teres minor muscle. There is mild glenohumeral arthrosis with mild marginal osteophyte formation. There is a moderate glenohumeral joint effusion. Normal humeral head and visualized proximal humerus. Normal labrum. Normal capsulo-ligamentous complex. There are postoperative changes related to biceps tenodesis. There is mild hypertrophic acromioclavicular arthrosis, with inferior osteophyte formation, with mild effacement of the supraspinatus myotendinous junction (coronal PD series 6 images 10-11). There is a Type II morphology (curved), with a neutral orientation. There is trace subacromial-subdeltoid bursal fluid. Normal visualized coracohumeral and coracoacromial ligaments. Normal quadrilateral space. Normal axillary space. Normal deltoid muscle. Normal trapezius muscle. MRI/Upper Ext Joint Only(Routine) IMPRESSION: Supraspinatus, infraspinatus, and subscapularis tendinosis without a full-thickness rotator cuff tear. Mild hypertrophic acromioclavicular arthrosis, with inferior osteophyte formation, with mild effacement of the supraspinatus myotendinous junction. Minimal subacromial-subdeltoid bursitis. Mild glenohumeral arthrosis with a moderate glenohumeral joint effusion. Electronically Signed: Jose Angulo MD at 8:37 EST ,
== END | disposition home or self-care (01) ==
LOC: MRI 13:30
PROVIDERS: PCP Family Medicine Geriatric Medicine; Referring Provider Orthopaedic Surgery Sports Medicine; Visit Provider Orthopaedic Surgery Sports Medicine
DX: M25.511 Pain in right shoulder (principal)
CPT/HCPCS: 73221

== ENCOUNTER 2023-05-09 11:30 | Outpatient (RCR) | payer MEDICARE, OTHER, SELFPAY ==
--- NOTE | 2023-04-07 11:04 | HP.PTEVAL_ITS ---
Patient's Visit Information Visit Information Visit Information: TERENCE VALDIVIA is a 72 year old F referred to Physical Therapy by Dr. Az Franco MD with a diagnosis of PRIMARY OSTEOARTHRITIS RIGHT SHOULDER,SPECIFIED DISORDER OF TENDON SHOULDER. Date of Evaluation: 04/07/23 Physical Therapist: Daniel Oro PT, Cert MDT, OCS Visit Plan Frequency: 2x /Week Duration: 4 Weeks Plan: PT INTERVTIONS ROM ,STRENGTHENING RTC /SCAPULAR EX'S ,POSTURAL EX'S ,AND MANUAL THERAPY G-H GRADE 2-3 Subjective Subjective: This 72 y/o female presents to physical therapy with right shoulder pain. Patient has had shoulder pain many years . Patient had RTC repair 2017. 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 Pain persistent seen DR Lim then referred to ortho. Patient seen Dr Franco did MRI showed DJD RTC repair looked good. Prescribed gabapentin from pain management. Patient has seen for cervical spine. Referred to PT . Patient has pain anterior shoulder and posterior triceps. Aggravating factors raising arm OH ,impair ADLS ,housework task cleaning vacuuming ,reaching behind back to put on coat. Alleviating factors rest. Occasionally hand paresthesia . Patient pain affects sleeping. Difficultly laying on right side. Patient condition affects QOL and function/housework tasks. Patient goals to decrease pain. 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: Pain Intensity (Out of 10): 4 Pain Intensity Range: 9 and 10 Objective Objective: POSTURE: rounded shoulders head forward PALAPTION: tender UT/levator NEURO: denies paresthesia/tingling AROM : shoulder flexion 120 degrees ,abduction 100 degrees pain ,ER 90 degrees ,IR L1 ( crepitis) PROM: shoulder flexion/abduction 150 degrees MMT: ( peak force) infraspinatus 17.8 ,subscapularis 19.8 ,supraspinatus 12.8 pain ,deltoid 10.6 pain CAPSULAR G-H: mild/mod tight SCAPULAR -HUMERAL: 1:1 Special Tests R Shoulder External Rotation Lag Test - RC Tear: Negative R Shoulder Supine Impingement Test - RC Tear: Negative R Shoulder Lift Off Test - Subscapular Tear: Negative R Shoulder Drop Sign - IS Test: Negative R Shoulder Empty Can - SS: Positive R Shoulder Belly Press - SupScap: Negative R Shoulder Neer - Impingement: Positive R Shoulder Blandon Matthieu - Impingement: Positive R Shoulder Shrug Sign - OA/Adhesive Capsulitis: Positive Balance/Special Test Scores Quick DASH Score: 50.0000 Goals Goal 1:: Patient to be I with HEP Goal Time Frame: 4-6 Weeks Goal 2:: Patient to be 50% improvement with increase function and less pain Goal Time Frame: 4-6 Weeks Goal 3:: Patient to improve Quick dash 5 points to improve to improve function Goal Time Frame: 4-6 Weeks Goal 4:: Patient to improve AROM shoulder flexion/abduction by 140 degrees to improve ADLS and housework tasks Goal Time Frame: 4-6 Weeks Goal 5:: Patient to improve peak force RTC/deltoid by 5-10 # to improve strength and function Goal Time Frame: 4-6 Weeks Rehabilitation Potential Physical Therapy Diagnosis: This patient has right shoulder pain with OA with decrease ROM, weakness impairs ADLS and housework tasks and activities above 90 degrees thus benefit from skilled PT Rehabilitation Potential: Good Anticipated Interventions Patient/Client Instruction: Educate patient on: Condition and Plan of Care For the Purpose of:: To decrease pain, To increase ROM, To improve muscle performance and motor function, To improve ability to perform ADL's, To increase tolerance to activity/condition/position, To improve ability of physical actions for home/community/work/leisure, To improve health of tissue, To decrease soft tissue restriction, To increase flexibility/ROM and To reduce risk of recurrence Therapeutic Exercise to Include: Strength training, Postural training, Flexibilty training, Passive ROM, Active ROM and Scapular Strength/Stabilization Comment: RTC For the Purpose of:: To decrease pain, To increase ROM, To improve muscle performance and motor function, To improve ability to perform ADL's, To increase tolerance to activity/condition/position, To improve health of tissue, To decrease soft tissue restriction, To increase flexibility/ROM, To reduce risk of recurrence and To improve tolerance to ADL's Manual Therapy Techniques to Include: Mobilization and Passive ROM Comment: G-H GRADE 2-3 For the Purpose of:: To increase ROM, To improve nutrient delivery to tissue, To increase oxygenation perfusion, To improve health of tissue, To decrease soft tissue restriction and To increase flexibility/ROM TENS: Yes IF ES: Yes Cryotherapy (ice pack, ice massage): Yes Thermo therapy (hot pack): Yes Ultrasound (thermal/non thermal): Yes For the Purpose of:: To decrease pain, To increase ROM, To improve nutrient delivery to tissue, To increase oxygenation perfusion, To improve health of tissue and To decrease soft tissue restriction Text: Thank you for the opportunity to evaluate your patient. For Medicare and Medicare HMO plans, please review the plan of care and approve it. It will need to be FAXED BACK to us at [phone] for Medicare purposes. For Medicare only, by signing this I certify the plan of care. Please let me know if there are questions or concerns regarding this plan of care. Physician Signature: Date:
--- NOTE | 2023-05-09 11:55 | HP.PTDCSUM ---
Discharge Summary D/C summary: It has been my pleasure to treat TERENCE VALDIVIA referred by Dr. Az Franco MD, with the diagnosis of PRIMARY OSTEOARTHRITIS RIGHT SHOULDER,SPECIFIED DISORDER OF TENDON SHOULDER for a total of 8 visit(s). Discharge Date: Please see the following information for a summary of their discharge status. Subjective Subjective: Doing great ready for d/c Pain Right Shoulder: Pain Intensity (Out of 10): 0 Overall Improvement % Improvement: 90 Objective Objective/Function: POSTURE: rounded shoulders head forward PALAPTION: tender UT/levator NEURO: denies paresthesia/tingling AROM : shoulder flexion 1500 degrees ,abduction 150 degrees pain ,ER 90 degrees ,IR L1 ( MMT: ( peak force) infraspinatus 28 ,subscapularis 29.8 ,supraspinatus 19.6pain ,deltoid 20.6 CAPSULAR G-H: WFL Goals Goal 1:: Patient to be I with HEP Goal Progress: Goal Met Goal 2:: Patient to be 50% improvement with increase function and less pain Goal Progress: Goal Met Goal 3:: Patient to improve Quick dash 5 points to improve to improve function Goal Progress: Goal Met Goal 4:: Patient to improve AROM shoulder flexion/abduction by 140 degrees to improve ADLS and housework tasks Goal Progress: Goal Met Goal 5:: Patient to improve peak force RTC/deltoid by 5-10 # to improve strength and function Goal Progress: Goal Met Plan Plan: D/C D/C Information d/c sentence: If there are questions or concerns regarding this patient's physical therapy, please feel free to call me at [phone]. Thank you for the referral of this patient. Sincerely, Daniel Oro, PT, Cert MDT, OCS Balance/Gait/Functional tests Balance/Special Test Scores Quick DASH Score: 11.3625 Improvement % Improvement: 90
== END 2023-05-09 19:00 | disposition home or self-care (01) ==
LOC: PT 11:30
PROVIDERS: PCP Family Medicine Geriatric Medicine; Referring Provider Orthopaedic Surgery Sports Medicine; Visit Provider Orthopaedic Surgery Sports Medicine
DX: M67.813 Other specified disorders of tendon, right shoulder (principal); M19.011 Primary osteoarthritis, right shoulder
CPT/HCPCS: 97110; 97162

== ENCOUNTER → 2023-05-10 | Outpatient (CLI) | payer MEDICARE, OTHER, SELFPAY | END | disposition home or self-care (01) | LOC: PSN 12:03 | PROVIDERS: PCP Family Medicine Geriatric Medicine; Referring Provider Family Medicine Geriatric Medicine; Visit Provider Family Medicine Geriatric Medicine | DX: R68.83 Chills (without fever) (principal) | CPT/HCPCS: 87631 ==

== ENCOUNTER → 2023-05-19 | Outpatient (CLI) | payer MEDICARE, OTHER, SELFPAY ==
--- NOTE | 2023-05-19 12:58 | RAD_ITS ---
STUDY: X-RAY - LUMBAR SPINE REASON FOR EXAM: Female, 72 years old. Back pain. TECHNIQUE: 3 view(s) of the lumbar spine were obtained. COMPARISON: None FINDINGS: Osteopenia. Normal lumbar lordosis. Mild dextroscoliosis. 2 mm of anterolisthesis of L4 on L3. Moderate lower thoracic and lumbosacral facet sclerosis. Diffuse intervertebral disc space narrowing with osteophyte formation most marked at L1-2 through L4-5. Normal soft tissues. RAD/Lumbar Spine 2 or 3 Views IMPRESSION: Osteopenia with moderate lower thoracic and lumbosacral spondylosis. Electronically Signed: Robert Lemus MD at 10:17 EDT ,
--- NOTE | 2023-05-19 13:02 | RAD_ITS ---
STUDY: X-RAY - THORACIC SPINE REASON FOR EXAM: Female, 72 years old. Back pain. TECHNIQUE: 3 view(s) of the thoracic spine were obtained. COMPARISON: None. FINDINGS: Osteopenia. Normal kyphosis of the thoracic spine. Mild thoracolumbar scoliosis. Diffuse intervertebral disc space narrowing. Osteophytes most marked in the mid thoracic and lower thoracic regions. Normal soft tissues. RAD/Thoracic Spine 3 Views IMPRESSION: Osteopenia with diffuse mild thoracic spondylosis as described. Electronically Signed: Robert Lemus MD at 10:16 EDT ,
== END | disposition home or self-care (01) ==
LOC: RAD 12:57
PROVIDERS: PCP Family Medicine Geriatric Medicine; Referring Provider Anesthesiology; Visit Provider Anesthesiology
DX: M47.814 Spondylosis without myelopathy or radiculopathy, thoracic region (principal); M47.816 Spondylosis without myelopathy or radiculopathy, lumbar region
CPT/HCPCS: 72072; 72100

== ENCOUNTER → 2023-05-26 | Outpatient (CLI) | payer MEDICARE, OTHER, SELFPAY ==
[2023-05-26 14:13] LABS: Absolute Lymphocyte Count 1.39 X10^3/uL (0.83-4.51); Absolute Neutrophil Count 3.2 X10^3/uL (2.0-7.7); Basophil# 0.05 X10^3/uL; Basophil% 0.9 % (0-1); Eosinophil# 0.09 X10^3/uL; Eosinophils% 1.7 % (0-5); Hemoglobin 14.4 g/dL (12.0-15.0); Lymphocyte # 1.39 X10^3/ul (0.83-4.51); Lymphocyte % 26.3 % (19-41); Mean Corp Hgb Conc 33.5 g/dL (32-36); Mean Corpuscular Volume 98.6 fL (81-99); Mean Platelet Vol. 9.3 fl (6.2-12.0); Monocyte# 0.54 X10^3/uL; Monocyte% 10.2 % (0-10); NRBC Flagged by Analyzer 0 % (0-5); Neutrophil # 3.21 X10^3/uL (2.7-7.7); Neutrophil % 60.7 % (47-70); Platelet Count 229 K/mm3 (150-450); RBC Distribution Width CV 12.4 % (11.6-14.6); RBC Distribution Width SD 45.2 fl (35.1-43.9); Red Blood Count 4.36 M/mm3 (4.2-5.4); White Blood Count 5.3 K/mm3 (4.4-11.0)
[2023-05-26 14:28] LABS: Vitamin D,25 Hydroxy 30.7 ng/mL
[2023-05-26 14:38] LABS: ALB/GLOB Ratio 1.1 RATIO (0.9-2.4); AST(SGOT) 34 U/L (15-37); Alanine Aminotransfer ALT/SGPT 64 U/L (13-56); Albumin, Serum 3.6 g/dL (3.2-5.0); Alkaline Phosphatase 112 U/L (45-117); Anion Gap 4 (5-15); BUN 9 mg/dL (7-18); BUN/Creat Ratio 10.5 RATIO (10-20); Calcium,Total 8.9 mg/dL (8.5-10.1); Chloride 109 mmol/L (98-107); Creatinine, Serum 0.86 mg/dL (0.55-1.02); EST Glomerular Filtration Rate 69 mL/min (>60); Est Glom Filt Rate - Afr Amer 83 mL/min (>60); Globulin 3.2 g/dL (2.2-4.2); Glucose 122 mg/dL (74-106); Potassium 4.3 mmol/L (3.5-5.1); Protein, Total 6.8 g/dL (6.4-8.2); Sodium Level 142 mmol/L (136-145); Thyroid Stim Hormone (TSH) 1.36 uIU/mL (0.358-3.74)
== END | disposition home or self-care (01) ==
LOC: POLAB3 12:57
PROVIDERS: PCP Family Medicine Geriatric Medicine; Visit Provider Family Medicine Geriatric Medicine
DX: E11.65 Type 2 diabetes mellitus with hyperglycemia (principal); I10 Essential (primary) hypertension; E55.9 Vitamin D deficiency, unspecified
CPT/HCPCS: 36415; 80053; 82306; 84443; 85025

== ENCOUNTER 2023-06-29 11:30 | Outpatient (RCR) | payer MEDICARE, OTHER, SELFPAY ==
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
--- NOTE | 2023-06-29 11:59 | HP.PTDCSUM ---
Discharge Summary D/C summary: It has been my pleasure to treat TERENCE VALDIVIA referred by Dr. Lonny Ch MD, with the diagnosis of SPONDYLOSIS MYELOPATHY OR RADICULIPATHY ,LUMABR ,SPONDYLOSIS THORACIC for a total of 9 visit(s). Discharge Date: 06/29/23 Please see the following information for a summary of their discharge status. Subjective Subjective: Doing good no pain Pain Bilateral Back: Pain Intensity (Out of 10): 0 Overall Improvement % Improvement: 100 Objective Objective/Function: Patient to benefit from skilled PT to improve function with waling standing for ADLS goals where addressed and progressing and continues to benefit from PT intervention* POSTURE: mild thoracic kyphosis ,hip/knees flexed GAIT: reciprocal pattern mild forward posture PALPATION: unremarkable SYMMETRIES: align FLEXIBILITY: hamstrings mod tight LUMBAR ROM: flexion min loss ,extension mod/severe loss ,side glides /minmod loss MMT: ( peak force) quads left 39.1 ,right 37.9 , hamstrings left 371 ,right 35.2 , hip flexion 24.8 right ,left 21.8 ,elie 4/5 Goals Goal 1:: Patient to be I with HEP for back Goal Progress: Goal Met Goal 2:: Patient to demonstrate 50% improvement with less pain and improved function Goal Progress: Goal Met Goal 3:: Patient to improve lumbar ROM for function of recovery for ADLS and lifting laundry basket Goal Progress: Goal Met Goal 4:: Patient to improve back oswestry score by 5 points to improve QOL and function Goal Progress: Goal Met Goal 5:: Patient be able to stand > 15 MINS to to dishes and cleaning Goal Progress: Goal Met Plan Plan: D/C HEP D/C Information Discharge Comments: HEP d/c sentence: If there are questions or concerns regarding this patient's physical therapy, please feel free to call me at [phone]. Thank you for the referral of this patient. Sincerely, Daniel Oro, PT, Cert MDT, OCS Balance/Gait/Functional tests Balance/Special Test Scores Oswestry Low Back Score: 32 Quick DASH Score: 0 Improvement % Improvement: 100
== END 2023-06-29 12:32 | disposition home or self-care (01) ==
LOC: PT 11:30
PROVIDERS: PCP Family Medicine Geriatric Medicine; Referring Provider Anesthesiology; Visit Provider Anesthesiology
DX: M47.816 Spondylosis without myelopathy or radiculopathy, lumbar region (principal); M47.817 Spondylosis without myelopathy or radiculopathy, lumbosacral region; M47.894 Other spondylosis, thoracic region; M79.10 Myalgia, unspecified site
CPT/HCPCS: 97110; 97162

== ENCOUNTER → 2023-11-01 | Outpatient (CLI) | payer MEDICARE, OTHER, SELFPAY ==
--- NOTE | 2023-11-01 11:15 | RAD_ITS ---
STUDY: X-RAY - LEFT KNEE REASON FOR EXAM: Female, 72 years old. KNEE PAIN TECHNIQUE: 4 view(s) of the knee. COMPARISON: 05/24/2022 FINDINGS: Normal visualized distal femur. Normal visualized proximal tibia and fibula. Normal proximal tibiofibular articulation. There is severe degenerative arthrosis of the medial femorotibial compartment with severe joint space narrowing. There is moderate degenerative arthrosis of the lateral femorotibial compartment with moderate joint space narrowing. There is mild degenerative arthrosis of the patellofemoral articulation. The soft tissue structures are unremarkable. RAD/Knee 4 or More Views IMPRESSION: Degenerative arthrosis. Electronically Signed: Aramis Novoa MD at 8:34 EDT ,
--- NOTE | 2023-11-01 11:15 | RAD_ITS ---
STUDY: X-RAY - UNILATERAL RIBS ( RIGHT ) WITH CHEST REASON FOR EXAM: Female, 72 years old. RIB PAIN TECHNIQUE - RIBS: 4 view(s) of the ribs. TECHNIQUE - CHEST: Single PA view of the chest. COMPARISON: None. FINDINGS - RIBS: Normal visualized ribs without a demonstrated fracture. FINDINGS - CHEST: The lungs are clear and expanded. There is no demonstrated pleural abnormality. Normal size heart. Normal mediastinum and nico. Normal visualized pulmonary arteries. Normal visualized aortic arch and descending thoracic aorta. Normal visualized thoracic spine. Normal visualized ribs, clavicles, and shoulders. There is no demonstrated abnormality of the visualized soft tissue structures of the upper abdomen. RAD/Ribs Uni Min 3V w/PA Chest IMPRESSION: RIBS: Normal x-ray examination of the ribs. CHEST: Normal x-ray examination of the chest. Electronically Signed: Aramis Novoa MD at 8:35 EDT ,
== END | disposition home or self-care (01) ==
LOC: RAD 11:01
PROVIDERS: PCP Family Medicine Geriatric Medicine; Referring Provider Anesthesiology; Visit Provider Anesthesiology
DX: M25.562 Pain in left knee (principal)
CPT/HCPCS: 71101; 73564

== ENCOUNTER → 2023-12-01 | Outpatient (CLI) | payer MEDICARE, OTHER, SELFPAY ==
[2023-12-01 14:37] LABS: Absolute Lymphocyte Count 1.85 X10^3/uL (0.83-4.51); Absolute Neutrophil Count 3.7 X10^3/uL (2.0-7.7); Basophil# 0.04 X10^3/uL; Basophil% 0.6 % (0-1); Eosinophil# 0.09 X10^3/uL; Eosinophils% 1.5 % (0-5); Hematocrit 41.8 % (37-47); Hemoglobin 14.4 g/dL (12.0-15.0); Lymphocyte # 1.85 X10^3/ul (0.83-4.51); Lymphocyte % 29.8 % (19-41); Mean Corp Hgb Conc 34.4 g/dL (32-36); Mean Corpuscular Volume 95.9 fL (81-99); Mean Platelet Vol. 9.7 fl (6.2-12.0); Monocyte# 0.55 X10^3/uL; Monocyte% 8.9 % (0-10); NRBC Flagged by Analyzer 0 % (0-5); Neutrophil # 3.66 X10^3/uL (2.7-7.7); Platelet Count 267 K/mm3 (150-450); RBC Distribution Width CV 12.2 % (11.6-14.6); RBC Distribution Width SD 43.3 fl (35.1-43.9); Red Blood Count 4.36 M/mm3 (4.2-5.4); White Blood Count 6.2 K/mm3 (4.4-11.0)
[2023-12-01 15:15] LABS: Vitamin D,25 Hydroxy 31.6 ng/mL
[2023-12-01 15:19] LABS: ALB/GLOB Ratio 1.1 RATIO (0.9-2.4); AST(SGOT) 48 U/L (15-37); Alanine Aminotransfer ALT/SGPT 51 U/L (13-56); Albumin, Serum 3.7 g/dL (3.2-5.0); Alkaline Phosphatase 139 U/L (45-117); Anion Gap 5 (5-15); BUN 11 mg/dL (7-18); BUN/Creat Ratio 12.9 RATIO (10-20); Calcium,Total 9.3 mg/dL (8.5-10.1); Chloride 106 mmol/L (98-107); Creatinine, Serum 0.85 mg/dL (0.55-1.02); EST Glomerular Filtration Rate 70 mL/min (>60); Est Glom Filt Rate - Afr Amer 84 mL/min (>60); Globulin 3.4 g/dL (2.2-4.2); Glucose 104 mg/dL (74-106); Potassium 3.9 mmol/L (3.5-5.1); Protein, Total 7.1 g/dL (6.4-8.2); Sodium Level 139 mmol/L (136-145)
== END | disposition home or self-care (01) ==
LOC: POLAB3 14:11
PROVIDERS: PCP Family Medicine Geriatric Medicine; Visit Provider Family Medicine Geriatric Medicine
DX: E11.65 Type 2 diabetes mellitus with hyperglycemia (principal); I10 Essential (primary) hypertension; E55.9 Vitamin D deficiency, unspecified
CPT/HCPCS: 36415; 80053; 82306; 84443; 85025

== ENCOUNTER → 2023-12-27 | Outpatient (CLI) | payer MEDICARE, OTHER, SELFPAY ==
--- NOTE | 2023-12-27 13:50 | RAD_ITS ---
STUDY: X-RAY - LEFT ELBOW REASON FOR EXAM: Female, 73 years old. LEFT ELBOW PAIN TECHNIQUE: 3 view(s) of the elbow. COMPARISON: None. FINDINGS: Normal visualized humerus, radius and ulna. Normal radiocapitellar and ulnotrochlear articulations. The soft tissue structures are unremarkable. RAD/Elbow min 3 Views IMPRESSION: Normal x-ray examination of the elbow. Electronically Signed: Aamir Bay MD at 15:02 EDT ,
--- NOTE | 2023-12-27 13:51 | RAD_ITS ---
STUDY: X-RAY - UNILATERAL RIBS ( LEFT ) WITH CHEST REASON FOR EXAM: Female, 73 years old. RIB PAIN ON LEFT SIDE TECHNIQUE - RIBS: 5 view(s) of the ribs. TECHNIQUE - CHEST: Single PA view of the chest. COMPARISON: None. FINDINGS - RIBS: Normal visualized ribs without a demonstrated fracture. FINDINGS - CHEST: The lungs are clear and expanded. There is no demonstrated pleural abnormality. Normal size heart. Normal mediastinum and nico. Normal visualized pulmonary arteries. There is atherosclerotic calcification of the aortic arch with tortuosity. There are diffuse degenerative changes of the visualized thoracic spine. Normal visualized ribs, clavicles, and shoulders. There is no demonstrated abnormality of the visualized soft tissue structures of the upper abdomen. RAD/Ribs Uni Min 3V w/PA Chest IMPRESSION: RIBS: Normal x-ray examination of the ribs. CHEST: Normal x-ray examination of the chest. Electronically Signed: Aamir Bay MD at 15:02 EDT ,
--- NOTE | 2023-12-27 13:51 | CT_ITS ---
STUDY: CT BRAIN WITH AND WITHOUT CONTRAST REASON FOR EXAM: Female, 73 years old. CLOSED HEAD INJURY you to recent multiple falls. RADIATION DOSAGE (If Supplied By Facility): CTDIvol = ( 44.99 ) mGy, DLP = ( 2579.55 ) mGycm TECHNIQUE: Transaxial CT imaging of the brain was performed pre and post contrast administration. The examination was performed with intravenous administration of IV 50mL Isovue-370. Individualized dose optimization techniques were used for this CT. COMPARISON: None. FINDINGS: Normal soft tissue structures. Normal calvarium. There is mild cerebral atrophy with widening of the extra-axial spaces and ventricular dilatation. There is a 3.6 cm x 2.8 cm enhancing mass in the posterior medial aspect of the right parietal occipital lobes. Mild surrounding mass effect. A neoplastic process should be ruled out. There is also evidence of heterogeneous enhancement in the superior right posterior parietal lobe. Metastatic deposit should be ruled out. Normal basal ganglia and thalami. Normal brainstem. Normal cerebellum. There is no intracranial hemorrhage. There are no findings of an acute ischemic infarction. Normal visualized paranasal sinuses. CT/Brain/Head W/WO Contrast IMPRESSION: 3.6 cm x 2.8 cm enhancing mass in the posterior aspect of the right parieto-occipital lobes with surrounding mass effect. A neoplastic process should be ruled out. There is also evidence of a heterogeneous area of enhancement in the superior right posterior parietal lobe adjacent to the cerebral vertex. A metastatic deposit should be ruled out. Electronically Signed: Aamir Bay MD at 14:36 EDT ,
[2023-12-27 14:09] LABS: Absolute Lymphocyte Count 1.46 X10^3/uL (0.83-4.51); Basophil# 0.04 X10^3/uL; Basophil% 0.7 % (0-1); Eosinophil# 0.06 X10^3/uL; Hematocrit 44.7 % (37-47); Hemoglobin 14.9 g/dL (12.0-15.0); Lymphocyte # 1.46 X10^3/ul (0.83-4.51); Mean Corp Hgb Conc 33.3 g/dL (32-36); Mean Corpuscular Hgb 32.3 pg (27.0-32.0); Mean Corpuscular Volume 96.8 fL (81-99); Mean Platelet Vol. 9.2 fl (6.2-12.0); Monocyte# 0.48 X10^3/uL; Monocyte% 7.9 % (0-10); NRBC Flagged by Analyzer 0 % (0-5); Neutrophil # 4.02 X10^3/uL (2.7-7.7); Neutrophil % 66.1 % (47-70); Platelet Count 237 K/mm3 (150-450); RBC Distribution Width CV 12.2 % (11.6-14.6); RBC Distribution Width SD 43.5 fl (35.1-43.9); Red Blood Count 4.62 M/mm3 (4.2-5.4); White Blood Count 6.1 K/mm3 (4.4-11.0)
[2023-12-27 14:36] LABS: ALB/GLOB Ratio 1.2 RATIO (0.9-2.4); AST(SGOT) 28 U/L (15-37); Alanine Aminotransfer ALT/SGPT 42 U/L (13-56); Albumin, Serum 3.8 g/dL (3.2-5.0); Alkaline Phosphatase 148 U/L (45-117); Anion Gap 4 (5-15); BUN 11 mg/dL (7-18); BUN/Creat Ratio 13.2 RATIO (10-20); Calcium,Total 9.1 mg/dL (8.5-10.1); Chloride 107 mmol/L (98-107); Creatinine, Serum 0.83 mg/dL (0.55-1.02); EST Glomerular Filtration Rate 71 mL/min (>60); Est Glom Filt Rate - Afr Amer 86 mL/min (>60); Globulin 3.3 g/dL (2.2-4.2); Glucose 137 mg/dL (74-106); Protein, Total 7.1 g/dL (6.4-8.2); Sodium Level 140 mmol/L (136-145)
== END | disposition home or self-care (01) ==
PROVIDERS: PCP Family Medicine Geriatric Medicine; Referring Provider Family Medicine Geriatric Medicine; Visit Provider Family Medicine Geriatric Medicine
DX: S09.90XA Unspecified injury of head, initial encounter (principal); R07.81 Pleurodynia; M25.522 Pain in left elbow; I10 Essential (primary) hypertension
CPT/HCPCS: 36415; 70470; 71101; 73080; 80053; 85025; Q9967

== ENCOUNTER → 2023-12-29 | Outpatient (CLI) | payer MEDICARE, OTHER, SELFPAY ==
--- NOTE | 2023-12-29 12:02 | CT_ITS ---
STUDY: CT CHEST, ABDOMEN T PELVIS WITH CONTRAST REASON FOR EXAM: Female, 73 years old. New diagnosis brain tumor, eval for mets/primary RADIATION DOSAGE (If Supplied By Facility): CTDIvol = ( 15.47 ) mGy, DLP = ( 1662.32 ) mGycm TECHNIQUE: Transaxial imaging was performed following intravenous administration of Oral and amp; IV Gastrografin and amp; 100mL Isovue-370. Multiplanar coronal and sagittal images were reformatted. Individualized dose optimization techniques were used for this CT. COMPARISON: No relevant priors. FINDINGS: CHEST The lungs are normal. There is no demonstrated pleural abnormality. Normal heart and pericardium. There are small lymph nodes within the mediastinum, which are normal in size and morphology most compatible with reactive lymph hyperplasia. Mildly enlarged right hilar lymph node measuring 2.2 cm. Normal unenhanced pulmonary arteries. Mild degree of atherosclerotic plaques at the level of the aortic arch. There are degenerative changes of the thoracic spine. ABDOMEN There is decreased attenuation of the liver consistent with steatosis. Normal gallbladder and extrahepatic biliary system. Normal spleen. Normal pancreas. Normal bilateral adrenal glands. Normal right kidney. Normal left kidney. Normal visualized stomach. Normal small intestine. There are scattered colonic diverticula consistent with diverticulosis. Moderate amount of fecal material is seen in the colon. The appendix is visualized and appears normal. There is scattered atherosclerotic calcification of the abdominal aorta, without a demonstrated aneurysm. Normal inferior vena cava. There is a small retroperitoneal lymphadenopathy with enlarged nodes no greater than 10mm in the short axis diameter. Normal abdominal wall. There are diffuse degenerative changes of the visualized lumbar spine. Facet joint osteoarthritis. PELVIS Normal urinary bladder. There is a 3 cm x 2.2 cm cyst in the right ovary. There is no pelvic fluid. There is no pelvic lymphadenopathy or mass lesion. Normal visualized pelvic arteries. CT/CT Chest, Abd, Pel w/Contrast IMPRESSION: Mild enlargement of the right hilar lymph node. 3 cm x 2.2 cm cyst in the right ovary. Electronically Signed: Aamir Bay MD at 14:53 EDT ,
[2023-12-29 12:13] LABS: Absolute Lymphocyte Count 1.36 X10^3/uL (0.83-4.51); Absolute Neutrophil Count 4.9 X10^3/uL (2.0-7.7); Basophil# 0.04 X10^3/uL; Basophil% 0.6 % (0-1); Eosinophil# 0.08 X10^3/uL; Eosinophils% 1.1 % (0-5); Hematocrit 44.3 % (37-47); Hemoglobin 15.1 g/dL (12.0-15.0); Lymphocyte # 1.36 X10^3/ul (0.83-4.51); Lymphocyte % 19.3 % (19-41); Mean Corp Hgb Conc 34.1 g/dL (32-36); Mean Corpuscular Hgb 32.8 pg (27.0-32.0); Mean Corpuscular Volume 96.3 fL (81-99); Mean Platelet Vol. 9.3 fl (6.2-12.0); Monocyte% 8.5 % (0-10); NRBC Flagged by Analyzer 0 % (0-5); Neutrophil # 4.93 X10^3/uL (2.7-7.7); Neutrophil % 70.2 % (47-70); Platelet Count 244 K/mm3 (150-450); RBC Distribution Width SD 42.7 fl (35.1-43.9)
[2023-12-29 12:56] LABS: Anion Gap 5 (5-15); BUN 10 mg/dL (7-18); BUN/Creat Ratio 12.5 RATIO (10-20); CPK Total, Creatine Kinase 81 U/L (26-192); Calcium,Total 9.4 mg/dL (8.5-10.1); Chloride 109 mmol/L (98-107); EST Glomerular Filtration Rate 75 mL/min (>60); Est Glom Filt Rate - Afr Amer 90 mL/min (>60); Glucose 111 mg/dL (74-106); Potassium 3.8 mmol/L (3.5-5.1); Sodium Level 139 mmol/L (136-145); Troponin-I HS 3 pg/mL (3.0-54.0)
[2023-12-30 10:10] LABS: Myoglobin, Serum 33 ng/mL (25-58)
== END | disposition home or self-care (01) ==
PROVIDERS: PCP Family Medicine Geriatric Medicine; Visit Provider Family Medicine Geriatric Medicine
DX: D49.6 Neoplasm of unspecified behavior of brain (principal); I10 Essential (primary) hypertension; R07.9 Chest pain, unspecified
CPT/HCPCS: 36415; 71260; 74177; 80048; 82550; 83874; 84484; 85025; Q9967

== ENCOUNTER → 2023-12-30 | Outpatient (CLI) | payer MEDICARE, OTHER, SELFPAY ==
--- NOTE | 2023-12-30 12:16 | BI_ITS ---
MAMMOGRAPHY - BILATERAL SCREENING REASON FOR EXAM: Female, 73 years old. Routine annual screening examination. PERTINENT HISTORY: Mother with breast cancer. Aunt with breast cancer. TECHNIQUE: Digital bilateral breast mckinley (3D mammographic acquisition) in the CC and MLO projections. 2-D mediolateral oblique (MLO) and craniocaudad (CC) views of both breasts were obtained. CAD: Full Field Digital Mammography with Computer Added Detection was performed. COMPARISON: Comparison is made with prior examination dated November 24, 2022. FINDINGS: Breast Composition: There are scattered areas of fibroglandular density. There are no dominant masses or suspicious calcifications. Stable small benign appearing bilateral axillary lymph nodes. No other significant abnormalities are identified. There has been no significant change since the prior study. BI/SCRN MAMM (CAD)W/MCKINLEY BILAT IMPRESSION: Stable bilateral screening mammogram. Yearly follow-up mammogram recommended. (A) ASSESSMENT CATEGORY: BIRADS Category 2: Benign. A letter regarding these results will be sent to the patient by the facility within 30 days. Approximately 10% of breast cancers are not detected by mammography. A normal mammogram should not delay biopsy of a clinically suspicious abnormality. [id number] Electronically Signed: Aamir Bay MD at 13:01 EDT ,
== END | disposition home or self-care (01) ==
LOC: OPBI 12:14
PROVIDERS: PCP Family Medicine Geriatric Medicine; Referring Provider Family Medicine Geriatric Medicine; Visit Provider Family Medicine Geriatric Medicine
DX: Z12.31 Encounter for screening mammogram for malignant neoplasm of breast (principal); Z80.3 Family history of malignant neoplasm of breast
CPT/HCPCS: 77063; 77067

== ENCOUNTER → 2024-01-02 | Outpatient (CLI) | payer MEDICARE, OTHER, SELFPAY ==
--- NOTE | 2024-01-02 08:07 | MRI_ITS ---
EXAM: MR HEAD WITHOUT INTRAVENOUS CONTRAST CLINICAL INDICATION: CLOSED HEAD INJURY, F/U TO ABNORMAL CT TECHNIQUE: Multiplanar and multisequence MR images of the brain were obtained without intravenous contrast. COMPARISON: CT brain 12/27/2023 FINDINGS: BRAIN AND EXTRA-AXIAL SPACES: Irregular shaped contrast-enhancing mass occupies the medial portion of the right parietal lobe measuring 4 cm in widest diameter and associated with large amount of adjacent vasogenic edema. The medial portion of the lesion abuts the falx. Effacement of the adjacent cortical sulci noted as well as compression of the adjacent trigone region of the right lateral ventricle. No significant midline shift. No other contrast-enhancing lesions are identified. Area of increased T2 signal intensity within the left frontal white matter superiorly likely representing gliosis from chronic microvascular change. Brain signal intensity is otherwise normal. No hydrocephalus. Posterior fossa is normal. Basilar cisterns are patent. SELLA: Normal. Normal sella turcica, pituitary gland, infundibular stalk, optic chiasm and hypothalamus. AUDITORY SYSTEM: Normal. The internal auditory canals are patent. BONES/JOINTS: Intact calvarium. SINUSES: Unremarkable as visualized. Clear. MASTOID AIR CELLS: Clear. ORBITS: Unremarkable as visualized. Both globes, extraocular muscles, optic nerves and retrobulbar fat appear unremarkable. VASCULATURE: Unremarkable as visualized. Normal flow voids in the major intracranial circulation. MRI/Brain W/WO Contrast IMPRESSION: 4 cm right parietal mass which may represent primary or metastatic neoplasm. Electronically Signed: Juancarlos Briceño MD at 10:14 EST ,
== END | disposition home or self-care (01) ==
PROVIDERS: PCP Family Medicine Geriatric Medicine; Referring Provider Family Medicine Geriatric Medicine; Visit Provider Family Medicine Geriatric Medicine
DX: S09.90XA Unspecified injury of head, initial encounter (principal)
CPT/HCPCS: 70553; A9575

== ENCOUNTER → 2024-01-03 | Outpatient (CLI) | payer MEDICARE, OTHER, SELFPAY ==
--- NOTE | 2024-01-03 07:30 | PET_ITS ---
EXAMINATION: FDG PET-CT ? Head to Toe INDICATIONS: A 73-year-old female with history of brain neoplasia presenting for initial staging examination. COMPARISON EXAMINATION: MRI of the brain report dated 01/02/24 INDEX LESION SIZE SUV INTERPRETATION Right parietal lobe Lesion to white matter ratio 2.6:1 Fulfills quantitative criteria for viable neoplasm TECHNIQUE: Following the intravenous administration of 13.55 mCi of F-18 deoxyglucose via the right hand, multiplanar image acquisitions of the head, neck, chest, abdomen and pelvis, lower extremities to the level of the bilateral forefoot, obtained at one hour post radiopharmaceutical administration contemporaneously interpreted with the current CT of the head, neck, chest, abdomen and pelvis, lower extremities to the level of the bilateral forefoot, dated 01/03/24 via coregistration and MRI of the brain report dated 01/02/24 reveals: BLOOD GLUCOSE LEVEL:?? 135 mg/dl?HEIGHT:?66 inches?WEIGHT: 184 lbs. FINDINGS: HEAD/NECK: There is an asymmetric increased tracer uptake noted in the right parietal lobe correlating with the findings described on MRI of the brain report dated 01/02/24. The lesion to white matter ratio is 2.6. The remaining cortical and subcortical structures are relatively scintigraphically unremarkable. Normal cerebellar hemispheres and basal ganglia are identified symmetrically. CHEST: There is no quantitative scintigraphic evidence of abnormal increased glucose metabolism within the context of the bilateral hemithorax pulmonary parenchyma, right and left hemithorax pleural interface, mediastinal structures and right-left thoracic perihilum. Prominent radiopharmaceutical concentration is identified in the left ventricular myocardium commensurate with the [place]. Pertinent chest CT findings are as follows. There is atherosclerotic calcification defined in the thoracic aorta without evidence of dilatation-aneurysm formation. Both anterior and middle mediastinal soft tissue densities demonstrate no evidence of quantitatively significant increased tracer uptake. Bilateral axillary soft tissue densities are ametabolic. There are no parenchymal densities-nodules defined in the right and left hemithorax with quantitatively significant increased FDG uptake. ABDOMEN/PELVIS: Normal physiologic distribution of the radiopharmaceutical is apparent in the hepatic and splenic parenchyma, both renal units, bladder and visualized intestinal tract. Pertinent abdomen and pelvis CT findings are as follows. Retained oral contrast material is noted in the descending and sigmoid colon. A cystic structure defined in the right adnexal region demonstrates no evidence of increased tracer uptake. Calcification is noted in the region of the left adnexa. SKELETAL: Degenerative changes are noted in the cervical, thoracic and lumbar spine without evidence of increased radiopharmaceutical concentration. PET/PET/CT Tumor WB Initial IMPRESSION: 1. Increased FDG concentration noted in the right parietal lobe fulfills quantitative criteria for viable neoplasia. (Delbeke et al, Radiology 195:47, 1995). 2. No other quantitatively significant hypermetabolic abnormalities are noted. Electronic Signature Aramis Whipple D.O. Accurate Quantification of SUVs for this report are calculated using the exclusive [employer], ([place]. Patent No. [phone] [place] patent [phone] ). Standardization and correction of the FDG SUV metric exclusively available with [employer] intellectual property, allow for vendor non-specific objective quantitative sequential FDG PET-CT comparison and otherwise unobtainable optimization of the sensitivity and specificity of the examination. [email or web address] Electronically Signed: Aramis Whipple DO at 8:54 EST ,
== END | disposition home or self-care (01) ==
LOC: ONC 07:03
PROVIDERS: PCP Family Medicine Geriatric Medicine; Referring Provider Family Medicine Geriatric Medicine; Visit Provider Family Medicine Geriatric Medicine
DX: D43.1 Neoplasm of uncertain behavior of brain, infratentorial (principal)
CPT/HCPCS: 78816; A9552

== ENCOUNTER → 2024-01-10 | Outpatient (CLI) | payer MEDICARE, OTHER, SELFPAY ==
--- NOTE | 2024-01-10 13:37 | CT_ITS ---
STUDY: CT BRAIN WITHOUT CONTRAST REASON FOR EXAM: Female, 73 years old. CLOSED HEAD INJURY RADIATION DOSAGE (If Supplied By Facility): CTDIvol = ( 44.99 ) mGy, DLP = ( 745.49 ) mGycm TECHNIQUE: Transaxial CT imaging of the brain was performed without administration of intravenous contrast material. Individualized dose optimization techniques were used for this CT. COMPARISON: Comparison is made with prior study dated December 27, 2023. FINDINGS: Normal soft tissue structures. Normal calvarium. Normal size ventricles and extra-axial spaces for the patient''s age. Once again, there is a 3.7 cm x 3.3 cm heterogeneous mass in the medial posterior right parietal occipital lobes with surrounding edema and mass effect. There is also evidence of edema in the anterior right parietal lobes. A neoplastic process should be ruled out. Normal basal ganglia and thalami. Normal brainstem. Normal cerebellum. There is no intracranial hemorrhage. There are no findings of an acute ischemic infarction. Normal visualized paranasal sinuses. CT/Brain/Head without Contrast IMPRESSION: Stable examination. Electronically Signed: Aamir Bay MD at 14:31 EST ,
--- NOTE | 2024-01-10 13:45 | RAD_ITS ---
INDICATION: ELBOW PAIN EXAMINATION/TECHNIQUE: X-RAY - LEFT XR Elbow 4Views COMPARISON: FINDINGS: SOFT TISSUES: No soft tissue swelling or gas. No radiopaque foreign body. BONES/JOINTS: There is no displacement of the anterior or posterior fat pads. Mild olecranon spurring. No acute fracture or subluxation. Normal alignment. Preservation of the joint space. No sclerotic or destructive changes observed. RAD/Elbow min 3 Views IMPRESSION: No acute bony injury. Electronically Signed: Juan Luis Bejarano DO at 10:53 EST ,
--- NOTE | 2024-01-10 13:45 | RAD_ITS ---
INDICATION: KNEE PAIN EXAMINATION/TECHNIQUE: X-RAY - LEFT XR Knee Complete 4 Views COMPARISON: FINDINGS: SOFT TISSUES: No soft tissue swelling or gas. No radiopaque foreign body. BONES/JOINTS: No acute fracture or subluxation.. Degenerative spurring at the femorotibial and patellofemoral compartments .. No sclerotic or destructive changes observed. RAD/Knee 4 or More Views IMPRESSION: Degenerative changes. No acute bony injury. Electronically Signed: Juan Luis Bejarano DO at 10:55 EST ,
== END | disposition home or self-care (01) ==
LOC: CT 13:37
PROVIDERS: PCP Family Medicine Geriatric Medicine; Referring Provider Family Medicine Geriatric Medicine; Visit Provider Family Medicine Geriatric Medicine
DX: M25.522 Pain in left elbow (principal); M25.562 Pain in left knee; S09.90XA Unspecified injury of head, initial encounter
CPT/HCPCS: 70450; 73080; 73564

== ENCOUNTER 2024-01-12 11:00 | Outpatient (RCR) | payer MEDICARE, OTHER, SELFPAY ==
--- NOTE | 2023-12-08 13:30 | HP.PTEVAL_ITS ---
Patient's Visit Information Visit Information Visit Information: TERENCE VALDIVIA is a 72 year old F referred to Physical Therapy by Dr. Will Lim MD with a diagnosis of BILATERAL LEG WEAKNESS. Date of Evaluation: 12/08/23 Physical Therapist: Daniel Oro, PT, Cert MDT, OCS Visit Plan Frequency: 2x /Week Duration: 4 Weeks Plan: PRECAUTIONS PATIENT HAS BEEN FALLING WEAKNESS LEFT > RIGHT PT INTERVENTIONS PROGRESSIVE BALANCE TRAINING ,BLE STRENGTHENING ( ESPECIALLY LEFT SIDE) ,FUNCTIONAL STRENGTHENING AND ENDURANCE EX'S Subjective Subjective: This 72 y/o female presents to physical therapy with bilateral leg weakness. Patient has been falling and weakness in legs with last episode 2 days ago. Patient has been falling past month ~ 8 x times past month. Patient normal states legs gives way. Patient seen Dr haines PT and plan to see back specialist and see Neurologist. Patient has min back pain and left knee pain. Patient denies paresthesia/tingling . Denies dizziness /nausea. Patient has difficulty steps ,unable to squat and kneel. Patient condition affects QOL and function walking/falling. Patient goals to stop falling and get stronger. SOCIAL: VOCATION: retired Pain Bilateral Back: Pain Intensity (Out of 10): 6 Pain Intensity Range: 10 Comment: shoulders blades Objective Objective: POSTURE: WFL GAIT: reciprocal pattern unsteady decrease swing phase Left lower left ,leans to right NEURO: denies paresthesia/tingling , reflexes C5-6-7 3/3 ,L3-4,L4-5,L5-S1 3/3 AROM : supine knee flexion left 0-125 degrees ,right 0-115 degrees MMT: shoulder right 4-/5 ,left 3+/5 MMT: ( peak force ) quads right 28.7 ,LEFT 21.2,Hamstrings right 23.2 ,left 15.3 ,hip flexion right 24.2,left 15.3 ,left ankle 14.3 dorsiflexion STAIRS: on step at time with rail Balance/Special Test Scores Functional Gait Assessment Score: 7 % Disability: 76.6700 CATSIB Score (Max score 120 seconds): 10 Lower Extremity Functional Score: 33 Goals Goal 1:: Patient to be I with HEP for legs and balance Goal Time Frame: 4-6 Weeks Goal 2:: Patient to improve strength BLE especially left by 5-10# peak force to decrease risk of falls. Goal Time Frame: 4-6 Weeks Goal 3:: Patient to improve LFES score by 5-10 points to improve QOL Goal Time Frame: 4-6 Weeks Goal 4:: Patient to improve CATSIBE by 5-10# to improve balance and decrease risk of falls Goal Time Frame: 4-6 Weeks Goal 5:: Patient to improve functional gait assessment score by 5 -10 # to decrease risk of falls Goal Time Frame: 4-6 Weeks Goal 6:: Patient to improve quality of gait and decrease falls 90% Goal Time Frame: 4-6 Weeks Rehabilitation Potential Physical Therapy Diagnosis: This patient has weakness in legs with left > right and UE weakness left side with unsteady gait leans to left decrease advancement left leg with impaired balance galling and poor CATSIBE thus benefit from skilled PT Rehabilitation Potential: Good Anticipated Interventions Patient/Client Instruction: Educate patient on: Condition and Plan of Care For the Purpose of:: To increase ROM, To improve muscle performance and motor function, To improve ability to perform ADL's, To increase tolerance to activity/condition/position, To improve ability of physical actions for home/community/work/leisure, To improve gait and locomotor functions, To increase flexibility/ROM, To improve endurance, To improve balance and To improve tolerance to ADL's Therapeutic Exercise to Include: Strength training, Endurance training, Balance training, Coordination and Gait and locomotor training Comment: BLE For the Purpose of:: To improve muscle performance and motor function, To improve ability to perform ADL's, To increase tolerance to activity/c ondition/position, To improve ability of physical actions for home/community/work/leisure, To improve gait and locomotor functions, To increase flexibility/ROM, To improve endurance, To improve balance and To improve tolerance to ADL's Text: Thank you for the opportunity to evaluate your patient. For Medicare and Medicare HMO plans, please review the plan of care and approve it. It will need to be FAXED BACK to us at [phone] for Medicare purposes. For Medicare only, by signing this I certify the plan of care. Please let me know if there are questions or concerns regarding this plan of care. Physician Signature: Date:
--- NOTE | 2024-02-28 15:02 | HP.PTDCNRP_ITS ---
Patient Information Patient Information: TERENCE VALDIVIA was seen in my office for initial evaluation on 12/08/23. The following Plan of Care was established for this patient: POC Established Initial Frequency: 2x /Week Initial Duration: 4 Weeks Anticipated Interventions Patient/Client Instruction: Educate patient on: Condition and Plan of Care For the Purpose of:: To increase ROM, To improve muscle performance and motor function, To improve ability to perform ADL's, To increase tolerance to activity/condition/position, To improve ability of physical actions for home /community/work/leisure, To improve gait and locomotor functions, To increase flexibility/ROM, To improve endurance, To improve balance and To improve tolerance to ADL's Therapeutic Exercise to Include: Strength training, Endurance training, Balance training, Coordination and Gait and locomotor training For the Purpose of:: To improve muscle performance and motor function, To improve ability to perform ADL's, To increase tolerance to activity/condition/position, To improve ability of physical actions for home/community/work/leisure, To improve gait and locomotor functions, To increase flexibility/ROM, To improve endurance, To improve balance and To improve tolerance to ADL's Last Seen Last Seen: This patient was last seen in our office . Pertinent comments regarding their Physical therapy will appear below: Patient was seen for PT for weakness ,but had multiple testing thus d/c At this point I will be discontinuing this patient from physical therapy. I would be happy to see this patient again in the future if found appropriate by the physician. Thank you! Daniel Oro, PT, Cert MDT, OCS Balance/Gait/Functional tests Balance/Special Test Scores Functional Gait Assessment Score: 7 % Disability: 76.6700 CATSIB Score (Max score 120 seconds): 10 Lower Extremity Functional Score: 33
== END 2024-01-12 19:00 | disposition home or self-care (01) ==
LOC: PT 11:00
PROVIDERS: PCP Family Medicine Geriatric Medicine; Referring Provider Family Medicine Geriatric Medicine; Visit Provider Family Medicine Geriatric Medicine
DX: R29.898 Other symptoms and signs involving the musculoskeletal system (principal)
CPT/HCPCS: 97110; 97162

== ENCOUNTER 2024-01-25 03:40 | Emergency (ER) | payer MEDICARE, OTHER, SELFPAY ==
[2024-01-25 03:41] VITALS: BP 155/80; PULSE 88; RESP 16; TEMP 37.1; O2SAT 95; BMI 30.4
--- NOTE | 2024-01-25 03:53 | CT_ITS ---
We are attempting to reach an attending provider to discuss findings. An addendum with communication details will be sent when the communication is complete. INDICATION: trauma EXAMINATION: CT BRAIN - CT Head or Brain W/O Contrast Injection TECHNIQUE: Multiple axial images were obtained of the head without intravenous contrast. The protocol utilizes one or more of the following dose reduction techniques: automated exposure control, adjustment of mA and/or kV according to patient size,and/or use of iterative reconstruction technique. IV Contrast dosage and agent: None. RADIATION DOSAGE (If Supplied By Facility): CTDIvol = ( 44.99 ) mGy, DLP = ( 812.98 ) mGycm COMPARISON: Prior study dated: 01/10/2024 FINDINGS: BRAIN: Heterogeneous mass in the right parietal lobe is again noted, approximately 4 cm in transverse diameter although difficult to determine the margins on noncontrast CT. Extensive surrounding vasogenic edema, as on the prior. There is mass effect on the right lateral ventricle with shift of midline structures to the left 6 mm, which is increased compared to 4 mm on the prior. No acute bleed. VENTRICLES AND SULCI: Not dilated. EXTRA-AXIAL: No hemorrhage, fluid collection, or mass. CALVARIUM / SKULL BASE: Unremarkable. FACE/SINUSES: Unremarkable. SOFT TISSUES: Unremarkable. CT/Brain/Head without Contrast IMPRESSION: No evidence of acute intracranial injury. Right parietal mass appears similar to prior, with surrounding vasogenic edema and slightly increased midline shift right to left compared to prior. Electronically Signed: Kimberli Rosales MD at 4:43 EST ,
--- NOTE | 2024-01-25 03:54 | ED.VIS.FALL ---
HPI HPI - Fall History of Present Illness Chief Complaint: Fall Informant: patient, family and EMS Narrative Narrative: 73-year-old female states she was recently diagnosed with a brain mass, she is scheduled for a procedure in 1 week, has been having disequilibrium/trouble with balance as well as weakness in her left side for over a month in relation to this, causing her to fall easily, which occurred this morning as she was getting out of bed. She states she had no prodromal symptoms. She fell and injured her head and the right side of her neck. She denies any new neurologic symptoms. She has a mild headache. There was no loss of consciousness, nausea, vomiting. She denies any new vision changes or symptoms. She denies any other injury. [facility] Medical History (Updated 01/25/24 @ 05:[address] Charles Rico MD) Brain tumor Tendinosis of right shoulder Primary osteoarthritis, right shoulder Right shoulder tendonitis Type 2 diabetes mellitus Home Medications ?Medication ?Instructions ?Recorded ?Last Taken ?Type levothyroxine 137 mcg tablet 137 mcg PO DAILY 04/30/22 Unknown History losartan 50 mg tablet 50 mg PO DAILY 04/30/22 Unknown History multivitamin 1 tab PO DAILY 04/30/22 Unknown History solifenacin 10 mg tablet 10 mg PO DAILY 04/30/22 Unknown History venlafaxine 75 mg capsule,extended 75 mg PO DAILY 04/30/22 Unknown History release 24 hr vitamins A,C,U-sxcz-llhbvz 2,148 2 tab PO DAILY 04/30/22 Unknown History mcg-113 mg-45 mg-17.4 mg tablet (PreserVision AREDS) semaglutide 0.25 mg or 0.5 mg (2 0.25 mg subcut QWEEK 02/01/23 Unknown History mg/3 mL) subcutaneous pen injector (Ozempic) bupropion HCl 200 mg tablet,12 hr 200 mg PO DAILY 06/21/23 Unknown History sustained-release Allergy/AdvReac Type Severity Reaction Status Date / Time bee venom protein (honey Allergy Swelling Verified 01/25/24 03:47 bee) (bee stings) codeine Allergy Nausea Verified 01/25/24 03:47 Tetanus Vaccines and Toxoid Allergy Swelling Verified 01/25/24 03:47 Family History Father CHF (congestive heart failure) Surgical History History of knee surgery Social History Smoking Status: Never smoker ROS ROS ED Constitutional Constitutional ED: Denies chills or fever(s) Eyes Eyes: Denies change in vision or diplopia ENT ENT ED: Denies rhinorrhea or sore throat Cardiovascular Cardiovascular: Denies chest pain or palpitations Respiratory/Chest Respiratory/Chest: Denies cough or dyspnea Gastrointestinal Gastrointestinal: Denies abdominal pain, diarrhea, nausea or vomiting Genitourinary Genitourinary ED: Denies dysuria or hematuria Musculoskeletal Musculoskeletal: Reports neck pain; Denies back pain Integumentary Reports Abrasions; Denies abscess or rash Neurologic Neurologic: Reports headache(s) and weakness; Denies paresthesias EXAM Physical Exam Const Vital Signs: 01/25/24 03:41 01/25/24 04:16 Temperature 98.7 F 98.7 F Temperature Source Oral Pulse Rate 88 Respiratory Rate 16 Respiratory Effort Normal Non-Labored Respiratory Depth Normal Respiratory Pattern Normal Blood Pressure 155/80 H Blood Pressure Mean 105 Pulse Ox 95 95 Oxygen Delivery Method Room Air Room Air Positive well nourished and well developed General Appearance ED: well developed and NAD HEENT Reports moist mucous membranes HEENT Narrative: Tenderness and superficial small abrasion left parietal occipital scalp. No crepitance or depression. No Snyder sign. No raccoon eyes. No CSF otorhinorrhea. normocephalic, trauma and tenderness; Negative for hematoma Eyes PERRL and EOMs intact bilaterally Neck full ROM and supple Neck Narrative: Tender in the right sternocleidomastoid, has full range of motion of the neck, increased pain when turning to the left in the area of the right sternocleidomastoid, and no midline bony tenderness or signs of trauma/step-off posteriorly. General: tenderness Resp normal respiratory effort and clear to auscultation bilaterally Cardio regular rate, regular rhythm and no murmurs GI non-tender and non-distended Auscultation: normoactive bowel sounds Palpation: soft Back/Spine no CVA tenderness General Back: other FROM Extremity normal to inspection Extremity Narrative: Full range of motion all joints without pain. General Extremety ED: Negative for edema, pulses abnormal or tenderness General Extremity: Negative for edema or pulses abnormal Neuro oriented x3, CN's II-XII intact bilaterally and no sensory deficits noted Neuro Narrative: Weak and poor coordination of left upper and lower extremities, at baseline per patient. Able to lift her leg and her arm. Normal strength right side. Normal speech. No aphasia. Sensorium / Orientation: awake and alert Motor Exam: strength abnormal Skin no rashes or lesions noted and no wounds MDM MDM MDM Narrative Medical decision making narrative: Given the patient's acute head injury that is relatively minor, she is not on any anticoagulants but I think with her neurologic symptoms that were pre-existing, CT of the head is reasonable and indicated since we would not be able to tell if she developed any acute neurologic symptoms had she had an acute bleed. I reviewed the images and the report and I agree with it, she is negative for bleed/fracture, the right parietal lobe brain tumor is again noted and appears similar to prior, however, radiologist called me to make me aware that she has worsening edema around the mass, now with a 6 mm midline shift compared with her prior CT that showed a 4 mm shift. Patient stated that she had no idea what kind of mass it was but she was due for initial neurosurgery outpt appt w/ Dr. Espino's office at [place] this coming week, I did advise her that based on the available information, it does appear to be a malignancy until proven otherwise. With regards to her neck, she agrees she turned in such a way that she feels like she strained the side of her neck and she is only having pain and tenderness in the muscular sternocleidomastoid on the right side and not posteriorly, therefore do not think she needs advanced imaging of her neck and she is in agreement. Since she is not on any steroids, has not seen anyone except her PCP yet, increasing falls and weakness in her left side, I think she will need more urgent neurosurgical attention than to wait a week to see them for the first time. I discussed this with Dr. Tineo, the neurosurgeon on-call at [place] this morning, she is in agreement. She advises the patient be transferred and immediately given Decadron 10 mg which was done, followed by Decadron 4 mg every 6 hours and GI prophylaxis as well in case the patient has an extended wait here for an available bed and transportation. Patient remains clinically and hemodynamically stable and she was updated on the plan. History & Record Review Additional record(s) reviewed:: Other (MRI, PET/CT 3 weeks ago) Radiography Diagnostic Testing: Clinical Impression(s) from Imaging Studies Brain CT 01/25/24 03:53 IMPRESSION: No evidence of acute intracranial injury. Right parietal mass appears similar to prior, with surrounding vasogenic edema and slightly increased midline shift right to left compared to prior. Electronically Signed: Kimberli Rosales MD at 4:43 EST , ADDENDUM: 01/25/24 0454 IMPRESSION: No evidence of acute intracranial injury. Right parietal mass appears similar to prior, with surrounding vasogenic edema and slightly increased midline shift right to left compared to prior. N.B. : The above Results were Read Back by Kimberli Rosales MD to Charles Rico MD, and understanding confirmed on 01/25/2024 04:47:21 (ET). Electronically Signed: Kimberli Rosales MD at 4:43 EST , Management Discussion w/another healthcare provider: [employer] (Neurosurgery Dr. Tineo) Discharge Plan Triage Chief Complaint: Fall ED Provider: Charles Rico Dx/Rx/DC Orders Clinical Impression: Left hemiparesis, Closed head injury without concussion, Abrasion of scalp, Strain of sternocleidomastoid muscle, Brain tumor Prescriptions: No Action bupropion HCl 200 mg tablet sustained-release 12 hr 200 mg PO DAILY multivitamin Tablet 1 tab PO DAILY losartan 50 mg tablet 50 mg PO DAILY levothyroxine 137 mcg Tablet 137 mcg PO DAILY venlafaxine 75 mg Capsule,Extended Release 24hr 75 mg PO DAILY solifenacin 10 mg Tablet 10 mg PO DAILY PreserVision AREDS 2,148 mcg-113 mg-45 mg-17.4mg tablet 2 tab PO DAILY Patient Comments: twice a day Ozempic 0.25 mg or 0.5 mg (2 mg/3 mL) pen injector 0.25 mg subcut QWEEK Rx Instructions: for 4 weeks Primary Care Provider: Will Lim Chi Referrals: Will Lim Chi, MD [Primary Care Provider] - Print Language: Lao Disposition Disposition: Acute Care Hospital Discharge Location: [facility]
[2024-01-25 04:16] VITALS: TEMP 37.1; O2SAT 95
[2024-01-25] MEDS: dexAMETHasone 10 MG/ML Vial IV (05:25)
[2024-01-25 05:34] LABS: Absolute Lymphocyte Count 0.99 X10^3/uL (0.83-4.51); Absolute Neutrophil Count 4.9 X10^3/uL (2.0-7.7); Basophil# 0.07 X10^3/uL; Eosinophil# 0.24 X10^3/uL; Eosinophils% 3.4 % (0-5); Hematocrit 42.5 % (37-47); Lymphocyte # 0.99 X10^3/ul (0.83-4.51); Lymphocyte % 14.1 % (19-41); Mean Corp Hgb Conc 35.3 g/dL (32-36); Mean Corpuscular Volume 93.4 fL (81-99); Mean Platelet Vol. 8.9 fl (6.2-12.0); Monocyte# 0.83 X10^3/uL; Monocyte% 11.8 % (0-10); NRBC Flagged by Analyzer 0 % (0-5); Neutrophil # 4.87 X10^3/uL (2.7-7.7); Neutrophil % 69.4 % (47-70); Platelet Count 192 K/mm3 (150-450); RBC Distribution Width CV 12.2 % (11.6-14.6); RBC Distribution Width SD 41.9 fl (35.1-43.9); Red Blood Count 4.55 M/mm3 (4.2-5.4)
[2024-01-25] MEDS: Famotidine 200 MG/20 ML MDV 20 MG in 0.9% Normal Saline (Pres. free 8 ML 300 MG IV (05:37)
[2024-01-25 05:40] VITALS: BP 170/81; PULSE 79; RESP 16; O2SAT 94
--- NOTE | 2024-01-25 05:49 | ED.RN ---
pt accepted at [facility] [address] [phone]. called physicians for transport, oneal gave a 4 hr eta. asked to outsource and call back
[2024-01-25 05:50] LABS: Anion Gap 7 (5-15); BUN 8 mg/dL (7-18); BUN/Creat Ratio 8.4 RATIO (10-20); Calcium,Total 8.8 mg/dL (8.5-10.1); Chloride 103 mmol/L (98-107); Creatinine, Serum 0.95 mg/dL (0.55-1.02); EST Glomerular Filtration Rate 61 mL/min (>60); Est Glom Filt Rate - Afr Amer 74 mL/min (>60); Estimated Creatinine Clearance 58.13 ml/min; Glucose 198 mg/dL (74-106); Potassium 3.6 mmol/L (3.5-5.1); Sodium Level 137 mmol/L (136-145)
[2024-01-25 07:11] VITALS: BP 159/75; PULSE 79; RESP 17; TEMP 36.2; O2SAT 93
[2024-01-25 08:47] VITALS: BP 159/75; PULSE 79; RESP 17; TEMP 36.2; O2SAT 93
== END 2024-01-25 08:48 | disposition short-term general hospital (02) ==
PROVIDERS: Emergency Provider Emergency Medicine; PCP Family Medicine Geriatric Medicine; Visit Provider Emergency Medicine
DX: S09.90XA Unspecified injury of head, initial encounter (principal); G81.94 Hemiplegia, unspecified affecting left nondominant side; E11.9 Type 2 diabetes mellitus without complications; R53.1 Weakness; G93.89 Other specified disorders of brain; M54.2 Cervicalgia; S00.01XA Abrasion of scalp, initial encounter; S16.1XXA Strain of muscle, fascia and tendon at neck level, initial encounter; W19.XXXA Unspecified fall, initial encounter
CPT/HCPCS: 70450; 80048; 85025; 96374; 99285; A4216; J3490

== ENCOUNTER → 2024-04-19 | Outpatient (CLI) | payer MEDICARE, OTHER, SELFPAY ==
[2024-04-19 15:33] LABS: Absolute Lymphocyte Count 0.73 X10^3/uL (0.83-4.51); Absolute Neutrophil Count 2.9 X10^3/uL (2.0-7.7); Basophil# 0.04 X10^3/uL; Basophil% 0.9 % (0-1); Eosinophil# 0.14 X10^3/uL; Eosinophils% 3.2 % (0-5); Hematocrit 40.1 % (37-47); Hemoglobin 13.8 g/dL (12.0-15.0); Lymphocyte # 0.73 X10^3/ul (0.83-4.51); Lymphocyte % 16.5 % (19-41); Mean Corp Hgb Conc 34.4 g/dL (32-36); Mean Corpuscular Hgb 32.5 pg (27.0-32.0); Mean Corpuscular Volume 94.4 fL (81-99); Mean Platelet Vol. 9.3 fl (6.2-12.0); Monocyte# 0.59 X10^3/uL; Monocyte% 13.3 % (0-10); NRBC Flagged by Analyzer 0 % (0-5); Neutrophil # 2.91 X10^3/uL (2.7-7.7); Neutrophil % 65.9 % (47-70); Platelet Count 242 K/mm3 (150-450); RBC Distribution Width CV 13.1 % (11.6-14.6); RBC Distribution Width SD 44.8 fl (35.1-43.9); Red Blood Count 4.25 M/mm3 (4.2-5.4); White Blood Count 4.4 K/mm3 (4.4-11.0)
[2024-04-19 15:50] LABS: Hemoglobin A1c 6.4 % (3.8-5.6)
[2024-04-19 15:57] LABS: ALB/GLOB Ratio 0.9 RATIO (0.9-2.4); AST(SGOT) 22 U/L (15-37); Alanine Aminotransfer ALT/SGPT 32 U/L (13-56); Albumin, Serum 3.5 g/dL (3.2-5.0); Alkaline Phosphatase 101 U/L (45-117); Anion Gap 6 (5-15); BUN 14 mg/dL (7-18); BUN/Creat Ratio 16.3 RATIO (10-20); Calcium,Total 9.3 mg/dL (8.5-10.1); Chloride 105 mmol/L (98-107); Cholesterol 162 mg/dL (200); Creatinine, Serum 0.86 mg/dL (0.55-1.02); EST Glomerular Filtration Rate 69 mL/min (>60); Est Glom Filt Rate - Afr Amer 83 mL/min (>60); Globulin 3.7 g/dL (2.2-4.2); Glucose 82 mg/dL (74-106); High Density Lipoprotein 57 mg/dL; Potassium 3.8 mmol/L (3.5-5.1); Protein, Total 7.2 g/dL (6.4-8.2); Sodium Level 138 mmol/L (136-145); Thyroid Stim Hormone (TSH) 0.399 uIU/mL (0.358-3.740); Triglycerides 78 mg/dL; Very Low Density Lipoprotein 16 mg/dL (5-40)
== END | disposition home or self-care (01) ==
LOC: LAB 14:44
PROVIDERS: PCP Family Medicine Geriatric Medicine; Referring Provider Family Medicine Geriatric Medicine; Visit Provider Family Medicine Geriatric Medicine
DX: E78.5 Hyperlipidemia, unspecified (principal); E11.65 Type 2 diabetes mellitus with hyperglycemia; I10 Essential (primary) hypertension; E03.9 Hypothyroidism, unspecified
CPT/HCPCS: 36415; 80053; 80061; 83036; 84443; 85025

== ENCOUNTER → 2024-04-26 | Outpatient (CLI) | payer MEDICARE, OTHER, SELFPAY ==
[2024-04-26 14:48] LABS: Absolute Lymphocyte Count 0.63 X10^3/uL (0.83-4.51); Absolute Neutrophil Count 3.6 X10^3/uL (2.0-7.7); Basophil# 0.03 X10^3/uL; Basophil% 0.6 % (0-1); Eosinophil# 0.14 X10^3/uL; Eosinophils% 2.8 % (0-5); Hematocrit 44.4 % (37-47); Hemoglobin 15.3 g/dL (12.0-15.0); Lymphocyte # 0.63 X10^3/ul (0.83-4.51); Lymphocyte % 12.8 % (19-41); Mean Corp Hgb Conc 34.5 g/dL (32-36); Mean Corpuscular Hgb 32.7 pg (27.0-32.0); Mean Corpuscular Volume 94.9 fL (81-99); Mean Platelet Vol. 8.6 fl (6.2-12.0); Monocyte# 0.52 X10^3/uL; Monocyte% 10.5 % (0-10); NRBC Flagged by Analyzer 0 % (0-5); Neutrophil # 3.61 X10^3/uL (2.7-7.7); Neutrophil % 73.1 % (47-70); Platelet Count 235 K/mm3 (150-450); RBC Distribution Width CV 12.9 % (11.6-14.6); RBC Distribution Width SD 44.6 fl (35.1-43.9); Red Blood Count 4.68 M/mm3 (4.2-5.4); White Blood Count 4.9 K/mm3 (4.4-11.0)
--- NOTE | 2024-04-26 14:51 | CT_ITS ---
EXAM: BRAIN/HEAD WITHOUT CONTRAST CLINICAL HISTORY: History of glioblastoma of the right parietal lobe. Recent resection. COMPARISON: Comparison is made with prior study dated January 25, 2024. TECHNIQUE: Multiple axial tomographic images were obtained without intravenous contrast administration. Coronal and sagittal reconstruction was obtained as well. FINDINGS: The patient is status post right posterior parietal occipital craniotomy. The previously seen mass lesion has been resected. There is evidence of encephalomalacia along the posterior aspect of the right parietal lobe in keeping with the prior surgical resection. No significant mass effect is seen. CT/Brain/Head without Contrast IMPRESSION: Status post right posterior parietal craniotomy with resection of the previousl y seen mass in the deep right posterior parietal lobe. The non was evidence of postoperative encephalomalacia. No evidence of mass lesion or mass effect. Reading Location: [id number]
[2024-04-26 15:47] LABS: ALB/GLOB Ratio 1.3 RATIO (0.9-2.4); AST(SGOT) 39 U/L (<=31); Alanine Aminotransfer ALT/SGPT 34 U/L (<=34); Albumin, Serum 4.4 g/dL (3.4-4.8); Alkaline Phosphatase 108 U/L (35-104); Anion Gap 13 (5-15); BUN 11 mg/dL (4-19); BUN/Creat Ratio 11.6 RATIO (10-20); Calcium 10.3 mg/dL (7.6-11.0); Carbon Dioxide 24.2 mmol/L (22.0-29.0); Chloride 103 mmol/L (96-108); EST Glomerular Filtration Rate 61 (>60); Globulin 3.3 g/dL (2.2-4.2); Glucose 143 mg/dL (70-99); Potassium 3.9 mmol/L (3.3-5.1); Protein, Total 7.8 g/dL (5.9-8.4); Sodium Level 140 mmol/L (133-145); Total Bilirubin 0.86 mg/dL (0.00-1.30)
== END | disposition home or self-care (01) ==
LOC: CT 14:29
PROVIDERS: PCP Family Medicine Geriatric Medicine; Visit Provider Family Medicine Geriatric Medicine
DX: I10 Essential (primary) hypertension (principal); N39.0 Urinary tract infection, site not specified; R51.9 Headache, unspecified
CPT/HCPCS: 36415; 70450; 80053; 85025; 87086; 87088

== ENCOUNTER 2024-04-27 08:49 | Outpatient (CLI) | payer MEDICARE, OTHER, SELFPAY ==
[2024-04-27] MEDS: 0.9% Normal Saline (1000mL) 1,000 ML 999 ML IV ×2 (09:02→10:09)
[2024-04-27] MEDS: 0.9% NaCl Peripheral Flush Adult/Peds IV (09:02)
[2024-04-27 09:06] VITALS: BP 138/68; PULSE 86; RESP 16; TEMP 36.1; O2SAT 92; BMI 28.4
[2024-04-27 11:24] VITALS: BP 126/55; PULSE 76; RESP 14; TEMP 36.1; O2SAT 98
== END 2024-04-27 23:59 | disposition home or self-care (01) ==
LOC: MEDOUTP 08:49
PROVIDERS: PCP Family Medicine Geriatric Medicine; Referring Provider Family Medicine Geriatric Medicine; Visit Provider Family Medicine Geriatric Medicine
DX: E86.0 Dehydration (principal)
CPT/HCPCS: 96360; 96361; A4216

== ENCOUNTER → 2024-05-29 | Outpatient (CLI) | payer MEDICARE, OTHER, SELFPAY ==
[2024-05-29 14:21] LABS: Absolute Neutrophil Count 2.8 X10^3/uL (2.0-7.7); Basophil# 0.04 X10^3/uL; Basophil% 0.9 % (0-1); Eosinophil# 0.12 X10^3/uL; Eosinophils% 2.7 % (0-5); Hemoglobin 14.2 g/dL (12.0-15.0); Lymphocyte % 20.2 % (19-41); Mean Corp Hgb Conc 35.5 g/dL (32-36); Mean Corpuscular Hgb 32.7 pg (27.0-32.0); Mean Corpuscular Volume 92.2 fL (81-99); Mean Platelet Vol. 8.8 fl (6.2-12.0); Monocyte# 0.56 X10^3/uL; Monocyte% 12.6 % (0-10); NRBC Flagged by Analyzer 0 % (0-5); Neutrophil # 2.83 X10^3/uL (2.7-7.7); Neutrophil % 63.4 % (47-70); Platelet Count 209 K/mm3 (150-450); RBC Distribution Width CV 12.3 % (11.6-14.6); RBC Distribution Width SD 41.1 fl (35.1-43.9); Red Blood Count 4.34 M/mm3 (4.2-5.4); White Blood Count 4.5 K/mm3 (4.4-11.0)
[2024-05-29 15:04] LABS: ALB/GLOB Ratio 1.5 RATIO (0.9-2.4); AST(SGOT) 24 U/L (<=31); Alanine Aminotransfer ALT/SGPT 25 U/L (<=34); Alkaline Phosphatase 96 U/L (35-104); Anion Gap 9 (5-15); BUN 10 mg/dL (4-19); BUN/Creat Ratio 10.9 RATIO (10-20); Calcium,Total 9.8 mg/dL (7.6-11.0); Carbon Dioxide 27.1 mmol/L (21.0-32.0); Chloride 105 mmol/L (98-108); Creatinine, Serum 0.91 mg/dL (0.70-1.20); EST Glomerular Filtration Rate 66 (>60); Globulin 2.7 g/dL (2.2-4.2); Glucose 122 mg/dL (70-99); Potassium 3.9 mmol/L (3.3-5.1); Protein, Total 6.6 g/dL (5.9-8.4); Sodium Level 141 mmol/L (133-145); Thyroid Stim Hormone (TSH) 0.074 uIU/mL (0.300-4.200); Total Bilirubin 0.68 mg/dL (0.00-1.30); Vitamin D,25 Hydroxy 22.2 ng/mL (30-100)
== END | disposition home or self-care (01) ==
LOC: LAB 13:54
PROVIDERS: PCP Family Medicine Geriatric Medicine; Referring Provider Family Medicine Geriatric Medicine; Visit Provider Family Medicine Geriatric Medicine
DX: E11.65 Type 2 diabetes mellitus with hyperglycemia (principal); I10 Essential (primary) hypertension; E55.9 Vitamin D deficiency, unspecified
CPT/HCPCS: 36415; 80053; 82306; 84443; 85025

== ENCOUNTER → 2024-08-24 | Outpatient (REF) | payer OTHER, SELFPAY ==
--- OUTSIDE RECORDS SUMMARY | 2024-08-24 04:30 | XMS RPT_ITS | CCD ---
Author Organization [facility] CliniSymn Care Team Providers Care Cook Night Name Role Phone Dr. Will Lim Chi Primary Care Provider Raphael, Dr. Will Adams Referring Provider MD Az Franco Attending Provider Dr. Marcellus Bailon Attending Provider Dr. Tyrone Isabel Attending Provider Dr. Will Lim Chi Primary Care Provider Raphael, Dr. Will Adams Referring Provider MD Az Franco Attending Provider Dr. Marcellus Bailon Attending Provider RAPHAEL COON, DR DEAL Primary Care Physician Amina Johansen Unavailable Unavailable Raphael COON, Dr. Will Adams Primary Care Provider Dr. Will Lim MD, Chi Attending Provider Raphael COON, Dr. Will Adams Referring Provider Trisha COON, Dr. Soto Attending Provider Dr. Charles Rico MD Emergency Provider Clint COON, Dr. Jennings Attending Provider Den Jaramillo MD, Dr. Jennings Referring Provider Den Lim MD, Dr. Will Adams Primary Care Provider Raphael COON, Dr. Will Adams Attending Provider Raphael COON, Dr. Will Adams Referring Provider Michaela Page Attending Unavailable Will Lim Chi Primary Care Unavailable Raphael, Will Chi Primary Care Unavailable Raphael, Will Chi Attending Unavailable Gudla Cody SHAFERthi Attending Unavailable Raphael, Will Chi Primary Care Unavailable Raphael, Will Chi Referring Unavailable Marcellus Bailon Attending Unavailable Raphael, Will Chi Primary Care Unavailable Raphael, Will Chi Referring Unavailable Az Franco Attending Unavailable Raphael, Will Chi Primary Care Unavailable Raphael, Will Chi Referring Unavailable Az Franco Attending Unavailable Raphael, Will Chi Primary Care Unavailable Raphael, Will Chi Primary Care Unavailable Raphael, Will Chi Attending Unavailable Raphael, Will Chi Primary Care Unavailable Raphael, Will Chi Referring Unavailable Raphael, Will Chi Attending Unavailable Raphael, Will Chi Primary Care Unavailable Gudla SONI Michaela Attending Unavailable Gudla OLS, Michaela Referring Unavailable Gudla OLS, Michaela Referring Unavailable Raphael, Will Chi Primary Care Unavailable Gudla OLS Michaela Attending Unavailable Gudla OLS, Michaela Referring Unavailable Raphael, Will Chi Primary Care Unavailable Gudla OLS Michaela Attending Unavailable Raphael, Will Chi Primary Care Unavailable Gudla SONI Michaela Attending Unavailable Raphael, Will Chi Primary Care Unavailable Charles Rico Attending Unavailable Raphael, Will Chi Referring Unavailable Raphael, Will Chi Primary Care Unavailable Raphael, Will Chi Attending Unavailable Raphael, Will Chi Referring Unavailable Raphael, Will Chi Primary Care Unavailable Raphael, Will Chi Attending Unavailable Prayson Lonny Referring Unavailable Prayson Lonny Attending Unavailable Raphael, Will Chi Primary Care Unavailable Prayson Lonny Referring Unavailable Prayson Lonny Attending Unavailable Raphael, Will Chi Primary Care Unavailable Raphael, Will Chi Referring Unavailable Raphael, Will Chi Attending Unavailable Raphael, Will Chi Primary Care Unavailable Raphael, Will Chi Attending Unavailable Raphael, Will Chi Primary Care Unavailable Raphael, Will Chi Referring Unavailable Az Franco Attending Unavailable Raphael, Will Chi Primary Care Unavailable Raphael, Will Chi Referring Unavailable Raphael, Will Chi Primary Care Unavailable Raphale, Will Chi Attending Unavailable Raphael, Will Chi Primary Care Unavailable Raphael, Will Chi Attending Unavailable Raphael, Will Chi Primary Care Unavailable Raphael, Will Chi Referring Unavailable Raphael, Will Chi Attending Unavailable Raphael, Will Chi Primary Care Unavailable Raphael, Will Chi Referring Unavailable Raphael, Will Chi Attending Unavailable Raphael, Will Chi Attending Unavailable Raphael, Will Chi Primary Care Unavailable Raphael, Will Chi Referring Unavailable Raphael, Will Chi Attending Unavailable Raphael, Will Chi Primary Care Unavailable Raphael, Will Chi Referring Unavailable Raphael, Will Chi Primary Care Unavailable Michaela Page Attending Unavailable Raphael, Will Chi Primary Care Unavailable Michaela Page Attending Unavailable Unavailable Primary Care Provider UnavailCLINTON Pelayo MD Attending Unavailable RAPHAEL COON, DR DEAL Primary Care Unavailable CLINTON GILBERT MD Attending Unavailable RAPHAEL COON, DR DEAL Primary Care Unavailable CLINTON GILBERT MD Attending Unavailable RAPHAEL COON, DR DEAL Primary Care Unavailable AKILA COON FACAGUSTINA Delgadillo Admitting Unavail able CATRINA SPAULDING, DR REYNOLDS Attending Unavailable RAPHAEL COON, DR DEAL Primary Care Unavailable CLINTON GILBERT Referring Unavailable CLINTON GILBERT Referring Unavailable LISA COON, DR ANDRADE Attending Unavailable RAPHAEL COON, DR DEAL Primary Care Unavailable LISA COON, DR ANDRADE Attending Unavailable RAPHAEL COON, DR DEAL Primary Care Unavailable RAPHAEL COON, DR DEAL Primary Care Unavailable HOSPITALIST, KIMBERLYN Consulting Unavailable GARETT COON, ROSEMARIE Admitting Unavail able ROSEMARIE TINEO MD Attending Unavail SILVIA Mendoza MD Consulting Unavailable GARETT COON, ROSEMARIE Consulting Unavail able LÁZARO FRANCISCO MD Consulting Unavailable CATRINA SPAULDIGN, DR REYNOLDS Consulting Unavailable CHRISTIAN GARCIA Consulting Unavailable RAPHAEL COON, DR DEAL Primary Care Unavailable LISA COON, DR ANDRADE Attending Unavailable ROSEMARIE TINEO MD Attending Unavail able RAPHAEL COON, DR DEAL Primary Care Unavailable RAPHAEL COON, DR DEAL Primary Care Unavailable LISA COON, DR ANDRADE Attending Unavailable RAPHAEL COON, DR DEAL Primary Care Unavailable LISA COON, DR ANDRADE Attending Unavailable RAPHAEL COON, DR DEAL Primary Care Unavailable CLINTON GILBERT MD Attending Unavailable LISA COON, DR ANDRADE Attending Unavailable RAPHAEL COON, DR DEAL Primary Care Unavailable Allergies Allergy Classification Reported Allergen(s) Allergy Type Date of Onset Reaction(s) Facility (20 sources) Codeine; Translations: [codeine] Drug Allergy 3 Unknown (qualifier value) [facility] (15 sources) bee venom protein (honey bee) Allergy to substance 3 Swelling [facility] (15 sources) Tetanus Vaccines and Toxoid Allergy to substance 3 Swelling [facility] (10 sources) Bee/Wasp/Ant venom Allergy to substance Unknown (qualifier value) [facility] (10 sources) Latex Drug allergy Unknown (qualifier value) [facility] (10 sources) Tetanus immune globulin; Translations: [tetanus immune globulin] Drug Allergy Unknown (qualifier value) [facility] (1 source) Codeine Drug Allergy 4 [facility] (1 source) Tetanus Vaccines and Toxoid Drug allergy (disorder) 4 [facility] (1 source) bee venom protein (honey bee) Drug allergy (disorder) 4 [facility] Medications Current Medications Medication Drug Class(es) Dates Sig (Normalized) Sig (Original) acetaminophen 325 mg oral capsule (10 sources) Start: 02-03-2024 Tylenol 325 mg oral capsule Dose : 650 mg =, Oral, q4h, PRN Pain, scale 1-3, 0 Refill(s) Start Date: 02/03/24 Status: Ordered Repeat number: 1 ascorbic acid 113 mg / beta carotene 7160 mg / cuprous oxide 0.4 mg / dl-alpha tocopheryl acetate 100 unt / zinc oxide 17.4 mg oral tablet (15 sources) Vitamin C Start: 04-30-2022 Vitamins A,C,G-Hwwt-Idhggr (Preservision Areds) 2,148 mcg-113 mg-45 mg-17.4mg tablet Active 2 {tbl} PO DAILY April 30, 2022 1:00am 12 hr buPROPion hydrochloride 200 mg extended release oral tablet (3 sources) Aminoketone Start: 06-21-2023 take 1 tablet by mouth once daily Bupropion Hcl 200 mg tablet sustained-release 12 hr Active 200 mg PO DAILY June 21, 2023 12:00am Centrum [facility]'s oral tablet (2 sources) Start: 07-18-2024 take 1 tablet by mouth once daily Centrum [facility]'s oral tablet Dose = 1 tab(s), Oral, qDay, 0 Refill(s) Start Date: 07/18/24 Status: Ordered Repeat number: 1 Zyrtec (1 source) Histamine-1 Receptor Antagonist Start: 03-22-2024 ZyrTEC qDay, 0 Refill(s) Start Date: 03/22/24 Status: Ordered Repeat number: 1 docusate sodium 100 mg oral capsule (5 sources) Start: 02-03-2024 Colace 100 mg oral capsule Dose : 100 mg = 1 cap(s), Oral, BID, PRN Constipation, 0 Refill(s) Start Date: 02/03/24 Status: Ordered Repeat number: 1 escitalopram 10 mg oral tablet (4 sources) Serotonin Reuptake Inhibitor Start: 05-23-2024 take 1 dose by mouth once daily escitalopram Dose : 10 mg =, Oral, qDay, 0 Refill(s) Start Date: 05/23/24 Status: Ordered Repeat number: 1 Geritol Complete oral tablet (2 sources) Start: 05-23-2024 take 1 tablet by mouth once daily Geritol Complete oral tablet Dose = 1 tab(s), Oral, Daily, # 90 tab(s), 0 Refill(s) Start Date: 05/23/24 Status: Ordered Quantity: 90.0 Unit: tab(s) Repeat number: 1 Glucagon (2 sources) Antihypoglycemic Agent Start: 03-22-2024 glucagon 1 EA, Subcutaneous, AsDirected, PRN for low blood sugar, # 1 EA, 1 Refill(s) Start Date: 03/22/24 Status: Ordered Quantity: 1.0 Unit: EA Repeat number: 1 glucose 0.4 mg/mg oral gel (2 sources) Start: 03-22-2024 take 25 mL by mouth once glucose ORAL GEL (40%) tube 25 mL, Oral, Once, # 25 mL, 0 Refill(s) Start Date: 03/22/24 Status: Ordered Quantity: 25.0 Unit: mL Repeat number: 1 guaiFENesin (1 source) Start: 03-22-2024 guaiFENesin Oral, 0 Refill(s) Start Date: 03/22/24 Status: Ordered Repeat number: 1 insulin glargine 100 unt/ml injectable solution (6 sources) Insulin Analog Start: 02-03-2024 inject 1 dose by subcutaneous injection once daily in the morning Lantus 100 units/mL10 ml vial solution Dose : 30 unit(s) =, Subcutaneous (INT), qAM, 0 Refill(s) Start Date: 02/03/24 Status: Ordered Repeat number: 1 insulin lispro 100 unt/ml injectable solution (14 sources) Insulin Analog Start: 03-22-2024 inject 1 dose by subcutaneous injection three times daily HumaLOG 100 units/mL injectable solution VIAL Dose : 5 unit(s) =, Subcutaneous, TID, # 10 mL, 0 Refill(s) Start Date: 03/22/24 Status: Ordered Quantity: 10.0 Unit: mL Repeat number: 1 Start: 02-03-2024 HumaLOG 100 un its/mL subcutaneous solution Give 0-10 units/dose, Subcutaneous, TIDAC, 0 Refill(s) Start Date: 02/03/24 Status: Ordered Repeat number: 1 levETIRAcetam 500 mg oral tablet (10 sources) Start: 02-03-2024 levETIRAcetam 500 mg oral tablet Dose : 500 mg = 1 tab(s), Oral, q12h, 0 Refill(s) Start Date: 02/03/24 Status: Ordered Repeat number: 1 levothyroxine sodium 0.112 mg oral tablet (20 sources) l-Thyroxine Start: 01-31-2024 levothyroxine 112 mcg (0.112 mg) oral tablet Dose : 112 mcg = 1 tab(s), Oral, qDayAC, 0 Refill(s) Start Date: 03/22/24 Status: Ordered Repeat number: 1 Start: 04-30-2022 take 1 tablet by [facility] once daily Levothyroxine 137 mcg Tablet Active 137 ug PO DAILY April 30, 2022 1:00am losartan potassium 100 mg oral tablet (20 sources) Angiotensin 2 Receptor Scott Start: 01-25-2024 losartan 100 mg oral tablet Dose : 100 mg = 1 tab(s), Oral, Daily, # 100 tab(s), 0 Refill(s) Start Date: 01/25/24 Status: Ordered Quantity: 100.0 Unit: tab(s) Repeat number: 1 Start: 04-30-2022 take 1 tablet by mouth once da jose Losartan 50 mg tablet Active 50 mg PO DAILY April 30, 2022 1:00am Milk of Magnesia (2 sources) Start: 03-22-2024 Milk of Magnes ia 400 mg, Oral, PRN Heartburn, 0 Refill(s) Start Date: 03/22/24 Status: Ordered Repeat number: 1 Start: 03-22-2024 Milk of Magnes ia mg, Oral, 0 Refill(s) Start Date: 03/22/24 Status: Ordered Repeat number: 1 Misc Medication (1 source) Start: 03-22-2024 Misc Medicatio n Thera- M, 0 Refill(s), 84.7 Start Date: 03/22/24 Status: Ordered Repeat number: 1 Multivitamin preparation (13 sources) Start: 04-30-2022 take 1 tablet by mouth once daily Multivitamin Active 1 TABLET PO DAILY April 30, 2022 1:00am Start: 04-30-2022 take 1 tablet by [facility] once daily Multivitamin Active 1 TABLET PO DAILY April 30, 2022 12:00am Multivitamin Tablet (2 sources) Start: 04-30-2022 Multivitamin T ablet Active 1 {tbl} PO DAILY April 30, 2022 1:00am On Hold: not taking ondansetron 4 mg oral tablet (7 sources) Serotonin-3 Receptor Antagonist Start: 04-05-2024 ondansetron 4 mg ora l tablet Dose : 4 mg = 1 tab(s), Oral, q6h, # 30 tab(s), 3 Refill(s), Pharmacy: [id number], 167.6, cm, 04/05/24 15:27:00 EST, Height, kg, 04/05/24 15:27:00 EST, Dosing Weight Start Date: 04/05/24 Status: Ordered Quantity: 30.0 Unit: tab(s) Repeat number: 4 Start: 03-06-2024 ondansetron 4 mg oral tablet Dose : 4 mg = 1 tab(s), Oral, q6h, # 30 tab(s), 1 Refill(s), Pharmacy: [facility], 167.4, cm, 03/02/24 10:12:00 EST, Height, kg, 03/02/24 10:12:00 EST, Dosing Weight Start Date: 03/06/24 Status: Ordered Quantity: 30.0 Unit: tab(s) Repeat number: 2 24 hr oxybutynin chloride 10 mg extended release oral tablet (1 source) Cholinergic Muscarinic Antagonist Start: 03-22-2024 take 1 tablet by mouth every hour, then take 1 tablet by mouth once daily oxybutynin 10 mg/24 hr oral tablet, extended release Dose : 10 mg = 1 tab(s), Oral, qDay, # 30 tab(s), 0 Refill(s) Start Date: 03/22/24 Status: Ordered Quantity: 30.0 Unit: tab(s) Repeat number: 1 pantoprazole 40 mg delayed release oral tablet (5 sources) Proton Pump Inhibitor Start: 02-03-2024 Protonix 40 mg oral enteric coated tablet Dose : 40 mg = 1 tab(s), Oral, qDayAC, 0 Refill(s) Start Date: 02/03/24 Status: Ordered Repeat number: 1 potassium chloride 1.33 meq/ml oral solution (4 sources) Start: 06-20-2024 take 1 dose by mouth twice daily KCL 20mEq/15mL (10%) ORAL liquid Dose : 20 mEq = 15 mL, Oral, BID, 0 Refill(s) Start Date: 06/20/24 Status: Ordered Repeat number: 1 Start: 05-23-2024 take 20 doses by [facility] twice daily potassium chloride Dose : 20 mEq =, Oral, BID, 0 Refill(s) Start Date: 05/23/24 Status: Ordered Repeat number: 1 PreserVision AREDS (4 sources) Start: 05-23-2024 take 1 capsule by mouth twice daily PreserVision AREDS 1 cap, Oral, BID, 0 Refill(s) Start Date: 05/23/24 Status: Ordered Repeat number: 1 Start: 05-23-2024 PreserVision A REDS 0 Refill(s) Start Date: 05/23/24 Status: Ordered Repeat number: 1 Sodium Phosphate, Dibasic / Sodium Phosphate, Monobasic (1 source) Start: 03-22-2024 Fleet Enema Re ctal, qDay, 0 Refill(s) Start Date: 03/22/24 Status: Ordered Repeat number: 1 solifenacin succinate 10 mg oral tablet (20 sources) Cholinergic Muscarinic Antagonist Start: 04-30-2022 solifenacin 10 mg oral tablet Dose : 10 mg = 1 tab(s), Oral, qDay, # 30 tab(s), 0 Refill(s) Start Date: 01/25/24 Status: Ordered Quantity: 30.0 Unit: tab(s) Repeat number: 1 temozolomide 5 mg oral capsule (14 sources) Alkylating Drug Start: 03-06-2024 End: 03-06-2025 temozolomide 5 mg oral capsule Dose : 5 mg = 1 cap(s), Oral, qHS, # 42 cap(s), 0 Refill(s), 03/06/25 2:38:00 PM EST, Pharmacy: [facility], 167.4, cm, 03/02/24 10:12:00 EST, Height, kg, 03/02/24 10:12:00 EST, Dosing Weight Start Date: 03/06/24 Stop Date: 03/06/25 Status: Ordered Quantity: 42.0 Unit: cap(s) Repeat number: 1 Start: 03-06-2024 End: 03-06-2025 temozolomide 140 mg oral cap steve Dose : 140 mg = 1 cap(s), Oral, qHS, take during RT with 5mg cap, # 42 cap(s), 0 Refill(s), 03/06/25 2:40:00 PM EST, Pharmacy: [facility], 167.4, cm, 03/02/24 10:12:00 EST, Height, kg, 03/02/24 10:12:00 EST, Dosing Weight Start Date: 03/06/24 Stop Date: 03/06/25 Status: Ordered Quantity: 42.0 Unit: cap(s) Repeat number: 1 Vitamin D3 (1 source) Start: 03-22-2024 Vitamin D3 qDa y, 0 Refill(s) Start Date: 03/22/24 Status: Ordered Repeat number: 1 Completed/Discontinued Medications Medication Drug Class(es) Dates Sig (Normalized) Sig (Original) cyclobenzaprine hydrochloride 10 mg oral tablet (15 sources) Muscle Relaxant Start: 04-30-2022 End: 02-01-2023 take 1 tablet by mouth twice daily as needed for muscle spasms Cyclobenzaprine 10 mg tablet Discontinued 10 mg PO TWICE A DAY as needed for muscle spasm April 30, 2022 12:56pm February 01, 2023 2:11pm dexamethasone 2 mg oral tablet (1 source) Corticosteroid Start: 02-03-2024 take 1 mg by mouth once daily dexAMETHasone 2 mg oral tablet Dose : 2 mg = 1 tab(s), Oral, BID, 2 mg BID today and tomorrow then decrease to 1mg BID x 2 days, then 1mg daily x 2 days and stop., 0 Refill(s) Start Date: 02/03/24 Status: Ordered gabapentin 100 mg oral capsule (7 sources) Anti-epileptic Agent Start: 04-04-2023 End: 01-25-2024 take 1 capsule by mouth three times daily Gabapentin 100 mg capsule Discontinued 100 mg PO THREE TIMES A DAY April 04, 2023 1:00am January 25, 2024 5:23am gadoterate meglumine (Dotarem) 0.5 mmol/mL contrast injection 15 mL (1 source) Start: 07-06-2024 End: 07-06-2024 inject 15 mL intravenously once 15 mL, intravenous, Once in imaging, Starting on Tue07/06/24 at 1637, For 1 dose, Administer undiluted as rapid I.V. bolus injection naproxen 500 mg oral tablet (15 sources) Nonsteroidal Anti-inflammatory Drug Start: 04-30-2022 End: 01-25-2024 take 1 tablet by mouth twice daily as needed for pain Naproxen (Naprosyn) 500 mg tablet Discontinued 500 mg PO TWICE A DAY as needed for pain April 30, 2022 1:00am January 25, 2024 5:24am Semaglutide (10 sources) Start: 02-01-2023 End: 04-27-2024 Semaglutide (Ozempic) 0.25 mg or 0.5 mg (2 mg/3 mL) pen injector Discontinued 0.25 mg SC EVERY WEEK February 01, 2023 1:00am April 27, 2024 10:03am for 4 weeks Start: 02-01-2023 Semaglutide (O zempic) 0.25 mg or 0.5 mg (2 mg/3 mL) pen injector Active 0.25 MG SC EVERY WEEK February 01, 2023 1:00am for 4 weeks Start: 02-01-2023 Semaglutide (O zempic) 0.25 mg or 0.5 mg (2 mg/3 mL) pen injector Active 0.25 MG SC EVERY WEEK February 01, 2023 12:00am for 4 weeks venlafaxine 75 mg oral tablet (20 sources) Serotonin and Norepinephrine Reuptake Inhibitor Start: 01-25-2024 End: 02-24-2024 venlafaxine 75 mg oral tablet Dose : 75 mg = 1 tab(s), Oral, qDay, 0 Refill(s) Start Date: 01/25/24 Stop Date: 02/24/24 Status: Ordered Repeat number: 1 Start: 04-30-2022 take 1 capsule by [facility] once daily Venlafaxine 75 mg Capsule,Extended Release 24hr Active 75 mg PO DAILY April 30, 2022 1:00am Problems Active Problems Problem Classification Problem Date Documented Date Episodic/Chronic Cancer of brain and nervous system (20 sources) Malignant neoplasm of brain; Translations: [Malignant neoplasm of brain, unspecified] Onset: 01-28-2024 Chronic Diabetes mellitus with complications (2 sources) Hyperglycemia due to type 2 diabetes mellitus; Translations: [Type 2 diabetes mellitus with hyperglycemia] Onset: 06-04-2024 Chronic Diabetes mellitus without complication (11 sources) Diabetes mellitus; Translations: [Type 2 diabetes mellitus without complication] Onset: 02-04-2024 01-20-2024 Chronic Disorders of lipid metabolism (11 sources) Hyperlipidemia; Translations: [Hyperlipidemia, unspecified] Onset: 05-03-2024 01-20-2024 Chronic Esophageal disorders (10 sources) Gastroesophageal reflux disease 01-20-2024 Chronic Essential hypertension (13 sources) Essential hypertension; Translations: [Essential (primary) hypertension] Onset: 02-04-2024 Chronic Fluid and electrolyte disorders (1 source) Dehydration; Translations: [Dehydration] Onset: 05-10-2024 Episodic Genitourinary symptoms and ill-defined conditions (10 sources) Female stress incontinence 01-20-2024 Chronic Malaise and fatigue (1 source) Asthenia; Translations: [Weakness] Onset: 02-04-2024 Episodic Mood disorders (1 source) Major depressive disorder; Translations: [Major depressive disorder, single episode, unspecified] Chronic Neoplasms of unspecified nature or uncertain behavior (4 sources) Neoplasm of brain; Translations: [Neoplasm of unspecified behavior of brain] Onset: 01-19-2024 02-02-2024 Chronic Osteoarthritis (20 sources) Osteoarthritis of joint of right shoulder region; Translations: [Primary osteoarthritis, right shoulder] 04-04-2023 Chronic Other acquired deformities (9 sources) Spondylolisthesis; Translations: [Spondylolisthesis, cervical region] 02-15-2023 Episodic Other acquired deformities (19 sources) Spondylolisthesis, cervical region; Translations: [Acquired spondylolisthesis] 02-15-2023 Episodic Other aftercare (6 sources) Surgical follow-up 03-22-2024 Episodic Other connective tissue disease (7 sources) Tendinosis of right shoulder; Translations: [Other specified disorders of tendon, right shoulder] 04-04-2023 Episodic Other connective tissue disease (5 sources) Other specified disorders of tendon, right shoulder; Translations: [Unspecified disorder of synovium, tendon, and bursa] 04-04-2023 Episodic Other ear and sense organ disorders (10 sources) Hearing loss 01-20-2024 Chronic Other injuries and conditions due to external causes (2 sources) Closed injury of head; Translations: [Unspecified injury of head, initial encounter] 02-02-2024 Episodic Other nervous system disorders (9 sources) Cervical myelopathy; Translations: [Disease of spinal cord, unspecified] 02-15-2023 Chronic Other nervous system disorders (12 sources) Disease of spinal cord, unspecified; Translations: [Cervical spondylosis with myelopathy] 02-15-2023 Chronic Other nervous system disorders (2 sources) Disorder of brain; Translations: [Disorder of brain, unspecified] Onset: 02-04-2024 Chronic Other nervous system disorders (11 sources) Abnormal gait; Translations: [Other abnormalities of gait and mobility] Episodic Other non-traumatic joint disorders (10 sources) Pain in right shoulder; Translations: [Right shoulder pain] 02-01-2023 Episodic Paralysis (3 sources) Hemiplegia of left nondominant side; Translations: [Hemiplegia, unspecified affecting left nondominant side] Chronic Spondylosis; intervertebral disc disorders; other back problems (19 sources) Neck pain; Translations: [Cervicalgia] 02-15-2023 Episodic Sprains and strains (20 sources) Strain of back muscle; Translations: [Strain of muscle and tendon of back wall of thorax, initial encounter] 04-30-2022 Episodic Superficial injury; contusion (2 sources) Abrasion of scalp; Translations: [Abrasion of scalp, initial encounter] 02-02-2024 Episodic Thyroid disorders (12 sources) Hypothyroidism; Translations: [Hypothyroidism, unspecified] Onset: 05-31-2024 Chronic Unclassified (10 sources) Brain neoplasm tissue sample (specimen) 01-20-2024 Past or Other Problems Problem Classification Problem Date Documented Date Episodic/Chronic Other connective tissue disease (1 source) Other symptoms and signs involving the musculoskeletal system; Translations: [Other symptoms and signs involving the musculoskeletal system] Onset: 02-28-2024 Episodic Other injuries and conditions due to external causes (1 source) Encounter for examination and observation following other accident; Translations: [Encounter for examination and observation following other accident] Onset: 02-23-2024 Episodic Other injuries and conditions due to external causes (1 source) Unspecified injury of head, initial encounter; Translations: [Unspecified injury of head, initial encounter] Onset: 01-23-2024 Episodic Other non-traumatic joint disorders (1 source) Pain in left elbow; Translations: [Pain in left elbow] Onset: 02-07-2024 Episodic Other non-traumatic joint disorders (1 source) Pain in left knee; Translations: [Pain in left knee] Onset: 11-22-2023 Episodic Other screening for suspected conditions (not mental disorders or infectious disease) (1 source) Encounter for screening mammogram for malignant neoplasm of breast; Translations: [Encounter for screening mammogram for malignant neoplasm of breast] Onset: 01-23-2024 Episodic Results Test Name Value Interpretation Reference Range Facility .[facility] 08-15-2024 Basophil, Absolute 0.0 10 3/mcL Normal 0.0-0.3 [facility] Comment on above: Performed By: #### G FR, CMP, CBC, LD, ADIFF, ANEU #### [address] [id number] Basophils/100 WBC (Bld) 0.9 % Normal 0.0-2.5 [facility] Comment on above: Performed By: #### G FR, CMP, CBC, LD, ADIFF, ANEU #### [facility] [address] [place] [id number] Eosinophil, Absolute 0.1 10 3/mcL Normal 0.0-0.7 [facility] Comment on above: Performed By: #### G FR, CMP, CBC, LD, ADIFF, ANEU #### [address] [address] Eosinophils/100 WBC (Bld) 2.9 % Normal 0.0-6.0 [facility] Comment on above: Performed By: #### G FR, CMP, CBC, LD, ADIFF, ANEU #### [address] [address] Lymphocyte, Absolute 0.8 10 3/mcL Low 0.9-4.3 [facility] Comment on above: Performed By: #### G FR, CMP, CBC, LD, ADIFF, ANEU #### [address] [address] Lymphocytes/100 WBC (Bld) 16.1 % Low 20.0-40.0 [facility] Comment on above: Performed By: #### G FR, CMP, CBC, LD, ADIFF, ANEU #### [address] [address] Monocyte, Absolute 0.5 10 3/mcL Normal 0.1-1.4 [facility] Comment on above: Performed By: #### G FR, CMP, CBC, LD, ADIFF, ANEU #### [address] [address] Monocytes/100 WBC (Bld) 11.4 % Normal 2.0-13.0 [facility] Comment on above: Performed By: #### G FR, CMP, CBC, LD, ADIFF, ANEU #### [address] [address] Neutrophils/100 WBC (Bld) 68.7 % Normal 50.0-75.0 [facility] Comment on above: Performed By: #### G FR, CMP, CBC, LD, ADIFF, ANEU #### [address] [address] .GFRon 08-15-2024 Estimated Glomerular Filtration Rate 91 ml/min/1.73sqm Normal [facility] Comment on above: Result Comment: Stages of Chronic Kidney Disease (CKD) Stage Description eGFR(ml/min/1.73 sq.m.) CKD 1 Normal kidney function or >=90 normal kindney function with possible kidney damage (ex. Proteinuria) CKD 2 Kidney damage with mild loss 60-89 of kidney function CKD 3a Mild to moderate loss of kidney 45-59 function CKD 3b Moderate to severe loss of 30-44 of kindey function CKD 4 Severe loss of kidney function 15-29 CKD 5 Kidney failure <15 Note: (go live 2024) the eGFR calculation was updated to the 2020 CKD-EPI creatinine equation without a race factor to calculate the eGFR results. Performed By: #### G FR, CMP, CBC, LD, ADIFF, ANEU #### [place] [address] .NEUABSon 08-15-2024 Neutrophil, Absolute 3.3 10 3/mcL Normal 2.3-8.1 [facility] Comment on above: Performed By: #### G FR, CMP, CBC, LD, ADIFF, ANEU #### [place] [address] CBCon 08-15-2024 Erythrocyte distribution width (RBC) [Ratio] 14.3 % Normal 11.5-15.5 [facility] Comment on above: Performed By: #### G FR, CMP, CBC, LD, ADIFF, ANEU #### [place] [address] Hematocrit (Bld) [Volume fraction] 43.5 % Normal 34.0-46.0 [facility] Comment on above: Performed By: #### G FR, CMP, CBC, LD, ADIFF, ANEU #### [place] [address] Hgb 15.3 G/dL Normal 12.0-16.0 [facility] Comment on above: Performed By: #### G FR, CMP, CBC, LD, ADIFF, ANEU #### [place] [address] MCH (RBC) [Entitic mass] 32.8 pg Normal 27.0-33.0 [facility] Comment on above: Performed By: #### G FR, CMP, CBC, LD, ADIFF, ANEU #### [place] [address] MCHC 35.1 G/dL Normal 32.0-36.0 [facility] Comment on above: Performed By: #### G FR, CMP, CBC, LD, ADIFF, ANEU #### [place] [address] MCV (RBC) [Entitic vol] 93.5 fL Normal 80.0-99.0 [facility] Comment on above: Performed By: #### G FR, CMP, CBC, LD, ADIFF, ANEU #### [place] [address] Platelet 271 10 3/mcL Normal 150-450 [facility] Comment on above: Performed By: #### G FR, CMP, CBC, LD, ADIFF, ANEU #### [place] [address] Platelet mean volume (Bld) [Entitic vol] 7.2 fL Normal 6.6-10.5 [facility] Comment on above: Performed By: #### G FR, CMP, CBC, LD, ADIFF, ANEU #### [place] [address] RBC 4.66 10 6/mcL Normal 4.10-5.30 [facility] Comment on above: Performed By: #### G FR, CMP, CBC, LD, ADIFF, ANEU #### [place] [address] WBC 4.8 10 3/mcL Normal 4.5-10.8 [facility] Comment on above: Performed By: #### G FR, CMP, CBC, LD, ADIFF, ANEU #### [address] 08-15-2024 Albumin Level 4.0 G/dL Normal 3.2-4.8 [facility] Comment on above: Performed By: #### G FR, CMP, CBC, LD, ADIFF, ANEU #### [place] [address] Albumin/Globulin [Mass ratio] 1.4 {ratio} Normal 0.9-1.6 [facility] Comment on above: Performed By: #### G FR, CMP, CBC, LD, ADIFF, ANEU #### [place] [address] ALP [Catalytic activity/Vol] 117 U/L Normal 38-126 [facility] Comment on above: Performed By: #### G FR, CMP, CBC, LD, ADIFF, ANEU #### [address] [address] ALT [Catalytic activity/Vol] 32 U/L Normal 10-49 [facility] Comment on above: Performed By: #### G FR, CMP, CBC, LD, ADIFF, ANEU #### [address] [address] AST [Catalytic activity/Vol] 27 U/L Normal 8-34 [facility] Comment on above: Performed By: #### G FR, CMP, CBC, LD, ADIFF, ANEU #### [address] [address] Bili Total 1.20 mg/dL Normal 0.20-1.20 [facility] Comment on above: Result Comment: Use of this assay is not recommended for patients undergoing treatment with eltrombopag due to the potential for falsely elevated results. Performed By: #### G FR, CMP, CBC, LD, ADIFF, ANEU #### [address] [address] BUN/Creatinine Ratio 15.7 ratio Normal 10.0-22.0 [facility] Comment on above: Performed By: #### G FR, CMP, CBC, LD, ADIFF, ANEU #### [address] [address] Calcium [Mass/Vol] 9.9 mg/dL Normal 8.7-10.4 [facility] Comment on above: Performed By: #### G FR, CMP, CBC, LD, ADIFF, ANEU #### [address] [address] Chloride [Moles/Vol] 105 mmol/L Normal 98-110 [facility] Comment on above: Performed By: #### G FR, CMP, CBC, LD, ADIFF, ANEU #### [address] [address] CO2 [Moles/Vol] 24 mmol/L Normal 22-32 [facility] Comment on above: Performed By: #### G FR, CMP, CBC, LD, ADIFF, ANEU #### [address] [address] Creatinine [Mass/Vol] 0.70 mg/dL Normal 0.50-1.20 [facility] Comment on above: Result Comment: Test ing performed on Numecent analyzer using enzymatic creatinine methodology. Performed By: #### G FR, CMP, CBC, LD, ADIFF, ANEU #### [address] [address] Electrolyte Balance 11.0 mEq/L Normal 4.0-15.0 [facility] Comment on above: Performed By: #### G FR, CMP, CBC, LD, ADIFF, ANEU #### [address] [address] Globulin 2.9 G/dL Normal 2.5-4.2 [facility] Comment on above: Performed By: #### G FR, CMP, CBC, LD, ADIFF, ANEU #### [place] [id number] Glucose [Mass/Vol] 193 mg/dL High 82-115 [facility] Comment on above: Performed By: #### G FR, CMP, CBC, LD, ADIFF, ANEU #### [address] [address] Potassium [Moles/Vol] 4.1 mmol/L Normal 3.5-5.0 [facility] Comment on above: Performed By: #### G FR, CMP, CBC, LD, ADIFF, ANEU #### [address] [address] Sodium [Moles/Vol] 140 mmol/L Normal 136-145 [facility] Comment on above: Performed By: #### G FR, CMP, CBC, LD, ADIFF, ANEU #### [place] [id number] Total Protein 6.9 G/dL Normal 5.7-8.2 [facility] Comment on above: Performed By: #### G FR, CMP, CBC, LD, ADIFF, ANEU #### [address] [address] Urea nitrogen [Mass/Vol] 11.0 mg/dL Normal 8.0-22.0 [facility] Comment on above: Performed By: #### G FR, CMP, CBC, LD, ADIFF, BENJI #### [address] [address] LABORATORYOrdered By: SYSTEM SYSTEM on 08-15-2024 Albumin BCP dye [Mass/Vol] 4.0 G/dL Normal 3.2 - 4.8 G/dL ADM SS Albumin/Globulin [Mass ratio] 1.4 {ratio} Normal 0.9 - 1.6 ratio AH ADM SS ALP [Catalytic activity/Vol] 117 U/L Normal 38 - 126 U/L AH ADM SS ALT No additional P-5'-P [Catalytic activity/Vol] 32 U/L Normal 10 - 49 U/L AH ADM SS AST [Catalytic activity/Vol] 27 U/L Normal 8 - 34 U/L AH ADM SS Basophils (Bld) [#/Vol] 0.0 103/mcL Normal 0.0 - 0.3 10^3/mcL Workflow SS Basophils/100 WBC (Bld) 0.9 % Normal 0.0 - 2.5 % Workflow SS Bilirubin [Mass/Vol] 1.20 mg/dL Normal 0.20 - 1.20 mg/dL AH ADM SS Comment on above: Interpretive Data: U se of this assay is not recommended for patients undergoing treatment with eltrombopag due to the potential for falsely elevated results. Calcium [Mass/Vol] 9.9 mg/dL Normal 8.7 - 10. 4 mg/dL AH ADM SS Chloride [Moles/Vol] 105 mmol/L Normal 98 - 11 0 mEq/L AH ADM SS CO2 [Moles/Vol] 24 mmol/L Normal 22 - 32 mEq/L AH ADM SS Creatinine [Mass/Vol] 0.70 mg/dL Normal 0.50 - 1.20 mg/dL AH ADM SS Comment on above: Interpretive Data: T esting performed on Numecent analyzer using enzymatic creatinine methodology. Electrolyte Balance 11.0 mEq/L Normal 4.0 - 15 .0 mEq/L AH ADM SS Eosinophils (Bld) [#/Vol] 0.1 103/mcL Normal 0.0 - 0.7 10^3/mcL AH Workflow SS Eosinophils/100 WBC (Bld) 2.9 % Normal 0.0 - 6.0 % Workflow SS Erythrocyte distribution width (RBC) [Ratio] 14.3 % Normal 11.5 - 15.5 % Workflow SS Estimated Glomerular Filtration Rate 91 ml/min/1.73sqm Invalid Interpretation Code [facility] SS Comment on above: Interpretive Data: Stages of Chronic Kidney Disease (CKD) Stage Description eGFR(ml/min/1.73 sq.m.) CKD 1 Normal kidney function or >=90 normal kindney function with possible kidney damage (ex. Proteinuria) CKD 2 Kidney damage with mild loss 60-89 of kidney function CKD 3a Mild to moderate loss of kidney 45-59 function CKD 3b Moderate to severe loss of 30-44 of kindey function CKD 4 Severe loss of kidney function 15-29 CKD 5 Kidney failure <15 Note: (go live 2024) the eGFR calculation was updated to the 2020 CKD-EPI creatinine equation without a race factor to calculate the eGFR results. Globulin 2.9 G/dL Normal 2.5 - 4.2 G/dL ADM SS Glucose [Mass/Vol] 193 mg/dL High 82 - 115 mg/dL ADM SS Hematocrit (Bld) [Volume fraction] 43.5 % Normal 34.0 - 46.0 % Workflow SS Hemoglobin (Bld) [Mass/Vol] 15.3 G/dL Normal 12.0 - 16.0 G/dL Workflow SS LDH Lactate to pyruvate reaction [Catalytic activity/Vol] 182 1 Normal 120 - 246 U/L ADM SS Lymphocytes (Bld) [#/Vol] 0.8 103/mcL Low 0.9 - 4.3 10^3/mcL Workflow SS Lymphocytes/100 WBC (Bld) 16.1 % Low 20.0 - 40.0 % Workflow SS MCH (RBC) [Entitic mass] 32.8 pg Normal 27.0 - 33.0 pg Workflow SS MCHC 35.1 G/dL Normal 32.0 - 36.0 G/dL Workflow SS MCV (RBC) [Entitic vol] 93.5 fL Normal 80.0 - 99.0 fL Workflow SS Monocytes (Bld) [#/Vol] 0.5 103/mcL Normal 0.1 - 1.4 10^3/mcL AH Workflow SS Monocytes/100 WBC (Bld) 11.4 % Normal 2.0 - 13.0 % AH Workflow SS Neutrophils (Bld) [#/Vol] 3.3 103/mcL Normal 2.3 - 8.1 10^3/mcL AH Workflow SS Neutrophils/100 WBC (Bld) 68.7 % Normal 50.0 - 75.0 % AH Workflow SS Platelet mean volume (Bld) [Entitic vol] 7.2 fL Normal 6.6 - 10.5 fL AH Workflow SS Platelets (Bld) [#/Vol] 271 103/mcL Normal 150 - 450 10^3/mcL AH Workflow SS Potassium [Moles/Vol] 4.1 mmol/L Normal 3.5 - 5.0 mEq/L ADM SS Protein [Mass/Vol] 6.9 G/dL Normal 5.7 - 8.2 G/dL ADM SS RBC (Bld) [#/Vol] 4.66 106/mcL Normal 4.10 - 5.3 0 10^6/mcL Workflow SS Sodium [Moles/Vol] 140 mmol/L Normal 136 - 145 mEq/L ADM SS Urea nitrogen [Mass/Vol] 11.0 mg/dL Normal 8.0 - 22.0 mg/dL ADM SS Urea nitrogen/Creatinine [Mass ratio] 15.7 ratio Normal 10.0 - 22.0 ratio ADM SS WBC (Bld) [#/Vol] 4.8 103/mcL Normal 4.5 - 10.8 10^3/mcL Workflow SS LDHon 08-15-2024 LDH 182 U/L Normal 120-246 [facility] Comment on above: Performed By: #### G FR, CMP, CBC, LD, ADIFF, ANEU #### [address] [address] .Auto Diffon 07-18-2024 Basophil, Absolute 0.0 10 3/mcL Normal 0.0-0.3 [facility] Comment on above: Performed By: #### G FR, CMP, CBC, LD, ADIFF, ANEU #### [address] [address] Basophils/100 WBC (Bld) 0.6 % Normal 0.0-2.5 [facility] Comment on above: Performed By: #### G FR, CMP, CBC, LD, ADIFF, ANEU #### [address] [address] Eosinophil, Absolute 0.2 10 3/mcL Normal 0.0-0.7 [facility] Comment on above: Performed By: #### G FR, CMP, CBC, LD, ADIFF, ANEU #### [address] [address] Eosinophils/100 WBC (Bld) 3.1 % Normal 0.0-6.0 [facility] Comment on above: Performed By: #### G FR, CMP, CBC, LD, ADIFF, ANEU #### [address] [address] Lymphocyte, Absolute 0.7 10 3/mcL Low 0.9-4.3 [facility] Comment on above: Performed By: #### G FR, CMP, CBC, LD, ADIFF, ANEU #### [address] [address] Lymphocytes/100 WBC (Bld) 13.8 % Low 20.0-40.0 [facility] Comment on above: Performed By: #### G FR, CMP, CBC, LD, ADIFF, ANEU #### [address] [address] Monocyte, Absolute 0.5 10 3/mcL Normal 0.1-1.4 [facility] Comment on above: Performed By: #### G FR, CMP, CBC, LD, ADIFF, ANEU #### [address] [address] Monocytes/100 WBC (Bld) 9.9 % Normal 2.0-13.0 [facility] Comment on above: Performed By: #### G FR, CMP, CBC, LD, ADIFF, ANEU #### [address] [address] Neutrophils/100 WBC (Bld) 72.6 % Normal 50.0-75.0 [facility] Comment on above: Performed By: #### G FR, CMP, CBC, LD, ADIFF, ANEU #### [address] [address] .GFRon 07-18-2024 Estimated Glomerular Filtration Rate 92 ml/min/1.73sqm Normal [facility] Comment on above: Result Comment: Stages of Chronic Kidney Disease (CKD) Stage Description eGFR(ml/min/1.73 sq.m.) CKD 1 Normal kidney function or >=90 normal kindney function with possible kidney damage (ex. Proteinuria) CKD 2 Kidney damage with mild loss 60-89 of kidney function CKD 3a Mild to moderate loss of kidney 45-59 function CKD 3b Moderate to severe loss of 30-44 of kindey function CKD 4 Severe loss of kidney function 15-29 CKD 5 Kidney failure <15 Note: (go live 2024) the eGFR calculation was updated to the 2020 CKD-EPI creatinine equation without a race factor to calculate the eGFR results. Performed By: #### G FR, CMP, CBC, LD, ADIFF, ANEU #### [place] [address] .NEUABSon 07-18-2024 Neutrophil, Absolute 3.8 10 3/mcL Normal 2.3-8.1 [facility] Comment on above: Performed By: #### G FR, CMP, CBC, LD, ADIFF, ANEU #### [place] [address] CBCon 07-18-2024 Erythrocyte distribution width (RBC) [Ratio] 13.8 % Normal 11.5-15.5 [facility] Comment on above: Performed By: #### G FR, CMP, CBC, LD, ADIFF, ANEU #### [place] [address] Hematocrit (Bld) [Volume fraction] 41.8 % Normal 34.0-46.0 [facility] Comment on above: Performed By: #### G FR, CMP, CBC, LD, ADIFF, ANEU #### [place] [address] Hgb 14.9 G/dL Normal 12.0-16.0 [facility] Comment on above: Performed By: #### G FR, CMP, CBC, LD, ADIFF, ANEU #### [place] [address] MCH (RBC) [Entitic mass] 33.8 pg High 27.0-33.0 [facility] Comment on above: Performed By: #### G FR, CMP, CBC, LD, ADIFF, ANEU #### [place] [address] MCHC 35.7 G/dL Normal 32.0-36.0 [facility] Comment on above: Performed By: #### G FR, CMP, CBC, LD, ADIFF, ANEU #### [place] [address] MCV (RBC) [Entitic vol] 94.7 fL Normal 80.0-99.0 [facility] Comment on above: Performed By: #### G FR, CMP, CBC, LD, ADIFF, ANEU #### [place] [address] Platelet 193 10 3/mcL Normal 150-450 [facility] Comment on above: Performed By: #### G FR, CMP, CBC, LD, ADIFF, ANEU #### [place] [address] Platelet mean volume (Bld) [Entitic vol] 7.4 fL Normal 6.6-10.5 [facility] Comment on above: Performed By: #### G FR, CMP, CBC, LD, ADIFF, ANEU #### [place] [address] RBC 4.41 10 6/mcL Normal 4.10-5.30 [facility] Comment on above: Performed By: #### G FR, CMP, CBC, LD, ADIFF, ANEU #### [place] [address] WBC 5.3 10 3/mcL Normal 4.5-10.8 [facility] Comment on above: Performed By: #### G FR, CMP, CBC, LD, ADIFF, ANEU #### [place] [address] CMPon 07-18-2024 Albumin Level 3.8 G/dL Normal 3.2-4.8 [facility] Comment on above: Performed By: #### G FR, CMP, CBC, LD, ADIFF, ANEU #### [place] [id number] Albumin/Globulin [Mass ratio] 1.4 {ratio} Normal 0.9-1.6 [facility] Comment on above: Performed By: #### G FR, CMP, CBC, LD, ADIFF, ANEU #### [place] [id number] ALP [Catalytic activity/Vol] 108 U/L Normal 38-126 [facility] Comment on above: Performed By: #### G FR, CMP, CBC, LD, ADIFF, ANEU #### [place] [address] ALT [Catalytic activity/Vol] 38 U/L Normal 10-49 [facility] Comment on above: Performed By: #### G FR, CMP, CBC, LD, ADIFF, ANEU #### [place] [id number] AST [Catalytic activity/Vol] 31 U/L Normal 8-34 [facility] Comment on above: Performed By: #### G FR, CMP, CBC, LD, ADIFF, ANEU #### [place] [id number] Bili Total 1.20 mg/dL Normal 0.20-1.20 [facility] Comment on above: Result Comment: Use of this assay is not recommended for patients undergoing treatment with eltrombopag due to the potential for falsely elevated results. Performed By: #### G FR, CMP, CBC, LD, ADIFF, ANEU #### [place] [id number] BUN/Creatinine Ratio 14.5 ratio Normal 10.0-22.0 [facility] Comment on above: Performed By: #### G FR, CMP, CBC, LD, ADIFF, ANEU #### [place] [address] Calcium [Mass/Vol] 9.7 mg/dL Normal 8.7-10.4 [facility] Comment on above: Performed By: #### G FR, CMP, CBC, LD, ADIFF, ANEU #### [address] [address] Chloride [Moles/Vol] 106 mmol/L Normal 98-110 [facility] Comment on above: Performed By: #### G FR, CMP, CBC, LD, ADIFF, ANEU #### [address] [address] CO2 [Moles/Vol] 27 mmol/L Normal 22-32 [facility] Comment on above: Performed By: #### G FR, CMP, CBC, LD, ADIFF, ANEU #### [address] [address] Creatinine [Mass/Vol] 0.69 mg/dL Normal 0.50-1.20 [facility] Comment on above: Result Comment: Test ing performed on Numecent analyzer using enzymatic creatinine methodology. Performed By: #### G FR, CMP, CBC, LD, ADIFF, ANEU #### [address] [address] Electrolyte Balance 8.0 mEq/L Normal 4.0-15.0 [facility] Comment on above: Performed By: #### G FR, CMP, CBC, LD, ADIFF, ANEU #### [address] [address] Globulin 2.7 G/dL Normal 2.5-4.2 [facility] Comment on above: Performed By: #### G FR, CMP, CBC, LD, ADIFF, ANEU #### [address] [address] Glucose [Mass/Vol] 195 mg/dL High 82-115 [facility] Comment on above: Performed By: #### G FR, CMP, CBC, LD, ADIFF, ANEU #### [address] [address] Potassium [Moles/Vol] 4.1 mmol/L Normal 3.5-5.0 [facility] Comment on above: Performed By: #### G FR, CMP, CBC, LD, ADIFF, ANEU #### [address] [address] Sodium [Moles/Vol] 141 mmol/L Normal 136-145 [facility] Comment on above: Performed By: #### G FR, CMP, CBC, LD, ADIFF, ANEU #### [address] [address] Total Protein 6.5 G/dL Normal 5.7-8.2 [facility] Comment on above: Performed By: #### G FR, CMP, CBC, LD, ADIFF, ANEU #### [place] [id number] [address] [place] [address] Urea nitrogen [Mass/Vol] 10.0 mg/dL Normal 8.0-22.0 [facility] Comment on above: Performed By: #### G FR, CMP, CBC, LD, ADIFF, ANEU #### [address] [address] LABORATORYOrdered By: SYSTEM SYSTEM on 07-18-2024 Albumin BCP dye [Mass/Vol] 3.8 G/dL Normal 3.2 - 4.8 G/dL ADM SS Albumin/Globulin [Mass ratio] 1.4 {ratio} Normal 0.9 - 1.6 ratio ADM SS ALP [Catalytic activity/Vol] 108 U/L Normal 38 - 126 U/L ADM SS ALT No additional P-5'-P [Catalytic activity/Vol] 38 U/L Normal 10 - 49 U/L ADM SS AST [Catalytic activity/Vol] 31 U/L Normal 8 - 34 U/L ADM SS Basophils (Bld) [#/Vol] 0.0 103/mcL Normal 0.0 - 0.3 10^3/mcL Workflow SS Basophils/100 WBC (Bld) 0.6 % Normal 0.0 - 2.5 % Workflow SS Bilirubin [Mass/Vol] 1.20 mg/dL Normal 0.20 - 1.20 mg/dL ADM SS Comment on above: Interpretive Data: U se of this assay is not recommended for patients undergoing treatment with eltrombopag due to the potential for falsely elevated results. Calcium [Mass/Vol] 9.7 mg/dL Normal 8.7 - 10. 4 mg/dL ADM SS Chloride [Moles/Vol] 106 mmol/L Normal 98 - 11 0 mEq/L ADM SS CO2 [Moles/Vol] 27 mmol/L Normal 22 - 32 mEq/L ADM SS Creatinine [Mass/Vol] 0.69 mg/dL Normal 0.50 - 1.20 mg/dL ADM SS Comment on above: Interpretive Data: T esting performed on Numecent analyzer using enzymatic creatinine methodology. Electrolyte Balance 8.0 mEq/L Normal 4.0 - 15 .0 mEq/L ADM SS Eosinophils (Bld) [#/Vol] 0.2 103/mcL Normal 0.0 - 0.7 10^3/mcL Workflow SS Eosinophils/100 WBC (Bld) 3.1 % Normal 0.0 - 6.0 % Workflow SS Erythrocyte distribution width (RBC) [Ratio] 13.8 % Normal 11.5 - 15.5 % Workflow SS Estimated Glomerular Filtration Rate 92 ml/min/1.73sqm Invalid Interpretation Code ADM SS Comment on above: Interpretive Data: Stages of Chronic Kidney Disease (CKD) Stage Description eGFR(ml/min/1.73 sq.m.) CKD 1 Normal kidney function or >=90 normal kindney function with possible kidney damage (ex. Proteinuria) CKD 2 Kidney damage with mild loss 60-89 of kidney function CKD 3a Mild to moderate loss of kidney 45-59 function CKD 3b Moderate to severe loss of 30-44 of kindey function CKD 4 Severe loss of kidney function 15-29 CKD 5 Kidney failure <15 Note: (go live 2024) the eGFR calculation was updated to the 2020 CKD-EPI creatinine equation without a race factor to calculate the eGFR results. Globulin 2.7 G/dL Normal 2.5 - 4.2 G/dL ADM SS Glucose [Mass/Vol] 195 mg/dL High 82 - 115 mg/dL ADM SS Hematocrit (Bld) [Volume fraction] 41.8 % Normal 34.0 - 46.0 % Workflow SS Hemoglobin (Bld) [Mass/Vol] 14.9 G/dL Normal 12.0 - 16.0 G/dL Workflow SS LDH Lactate to pyruvate reaction [Catalytic activity/Vol] 173 1 Normal 120 - 246 U/L ADM SS Lymphocytes (Bld) [#/Vol] 0.7 103/mcL Low 0.9 - 4.3 10^3/mcL Workflow SS Lymphocytes/100 WBC (Bld) 13.8 % Low 20.0 - 40.0 % AH Workflow SS MCH (RBC) [Entitic mass] 33.8 pg High 27.0 - 33.0 pg AH Workflow SS MCHC 35.7 G/dL Normal 32.0 - 36.0 G/dL AH Workflow SS MCV (RBC) [Entitic vol] 94.7 fL Normal 80.0 - 99.0 fL AH Workflow SS Monocytes (Bld) [#/Vol] 0.5 103/mcL Normal 0.1 - 1.4 10^3/mcL AH Workflow SS Monocytes/100 WBC (Bld) 9.9 % Normal 2.0 - 13.0 % AH Workflow SS Neutrophils (Bld) [#/Vol] 3.8 103/mcL Normal 2.3 - 8.1 10^3/mcL AH Workflow SS Neutrophils/100 WBC (Bld) 72.6 % Normal 50.0 - 75.0 % AH Workflow SS Platelet mean volume (Bld) [Entitic vol] 7.4 fL Normal 6.6 - 10.5 fL AH Workflow SS Platelets (Bld) [#/Vol] 193 103/mcL Normal 150 - 450 10^3/mcL AH Workflow SS Potassium [Moles/Vol] 4.1 mmol/L Normal 3.5 - 5.0 mEq/L AH ADM SS Protein [Mass/Vol] 6.5 G/dL Normal 5.7 - 8.2 G/dL AH ADM SS RBC (Bld) [#/Vol] 4.41 106/mcL Normal 4.10 - 5.3 0 10^6/mcL AH Workflow SS Sodium [Moles/Vol] 141 mmol/L Normal 136 - 145 mEq/L ADM SS Urea nitrogen [Mass/Vol] 10.0 mg/dL Normal 8.0 - 22.0 mg/dL AH ADM SS Urea nitrogen/Creatinine [Mass ratio] 14.5 ratio Normal 10.0 - 22.0 ratio AH ADM SS WBC (Bld) [#/Vol] 5.3 103/mcL Normal 4.5 - 10.8 10^3/mcL AH Workflow SS LDHon 07-18-2024 LDH 173 U/L Normal 120-246 [facility] Comment on above: Performed By: #### G FR, CMP, CBC, LD, BENJI ROJAS #### [place] [id number] MR BRAIN TUMOR PERFUSION PRO TOCOL W AND WO IV CONTRASTon 07-06-2024 MR BRAIN TUMOR PERFUSION PROTOCOL W AND WO IV CONTRAST Interpreted By: Yola Link, STUDY: MR BRAIN TUMOR PERFUSION PROTOCOL W AND WO IV CONTRAST; MR SPECTROSCOPY INDICATION: Signs/Symptoms:GBM S/P RT W PROGRESSION VS PSEUDOPROGRESSION; Signs/Symptoms:SPECTRO SCOPY W PROGRESSION VS PSEUDOPROGRESSION COMPARISON: None. ACCESSION NUMBER(S): [id number]; [id number] ORDERING CLINICIAN: INTERFACE UNSPECIFIELDPROVIDER TECHNIQUE: Multi-planar multi-sequential MR imaging of the brain was performed before and after the intravenous administration of contrast. 24 ml of Dotarem was administered (the balance of single use vial(s) has/have been discarded). Advanced imaging was performed utilizing dynamic susceptibility contrast and dynamic contrast-enhanced imaging. Single voxel MR spectroscopy was also performed. FINDINGS: Status post right parietal craniotomy status post resection of right parietal lesion. Resection cavity in the precuneus of the right parietal lobe measuring 2.1 x 0.8 x 1.4 cm (series 21, image 151; series 23, image 33). Irregular enhancement along the margins of the resection cavity most notably seen along the posterior aspect and inferior aspect. The enhancement also contacts the overlying falx. Hemosiderin along the margins of the resection cavity and extending along the surgical tract margins noted. The resection cavity is continuous with an enhancing lesion within the medial right parietal lobe extending into the right splenium of the corpus callosum as well as medial aspect of the right periventricular white matter. This lesion measures approximately 3.3 x 1.4 x 2.2 cm (AP x TV x CC) (series 23, image 29; series 21, image 145). There is apparent associated ependymal enhancement (series 21, image 139). Faint diffusion restriction and susceptibility throughout this lesion. Dynamic susceptibility contrast-enhanced imaging demonstrates minimal without pathologically increased perfusion throughout the lesion (rCBV measuring 1.2). Time perfusion curve demonstrates rapid wash-in and washout persistence above baseline compared to contralateral white matter. Time permeability curve demonstrates rapid followed by persistent slow gradual leakage. 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 Additional remote area of FLAIR signal abnormality involving left frontal periventricular white matter. No acute infarct or intracranial hemorrhage. Left parietal developmental venous anomaly noted. No hydrocephalus. No extra-axial fluid collections. The skull base flow voids are present. The visualized intraorbital contents are normal. The imaged portions of the paranasal sinuses are clear. The mastoid air cells are clear. The visualized osseous structures, soft tissues and partially visualized parotid glands appear normal. Spectroscopy is noncontributory as single voxel is placed over the resection cavity and does not include the heterogeneous enhancing lesion. IMPRESSION: No previous imaging for comparison. Status post right parietal craniotomy status post resection of right parietal lesion. 2.1 cm resection cavity in the right parietal lobe with irregular enhancement along the margins contacting the overlying falx, which may represent residual disease versus posttreatment change. Additional heterogeneously enhancing lesion in the medial right parietal lobe extending into the right splenium of the corpus callosum and medial right periventricular white matter measuring up to 3.3 cm. Perfusion imaging demonstrates decreased perfusion throughout the lesion (rCBV measuring 1.2). Advanced imaging is suggestive of posttreatment change. However, interpretation is significantly limited given single time point. Continued follow-up is recommended. If previous outside imaging is uploaded, an addendum may be performed if clinically requested. FLAIR signal abnormality predominantly within the right parietal lobe but also involving the right hippocampus, dorsal right frontal lobe, in remote FLAIR signal abnormality in the left periventricular frontal white matter. This may represent combination of post treatment change and nonenhancing tumor. Spectroscopy is noncontributory as single voxel is placed over the resection cavity and does not include the heterogeneous enhancing lesion. Signed by: Yola Link 07/09/2024 3:53 PM Dictation workstation: [id number] [facility] Comment on above: Order Comment: ORDER TO BE SCANNED MR SPECTROSCOPYon 07-06-2024 MR SPECTROSCOPY Interpreted By: Yola Gonzalez, STUDY: MR BRAIN TUMOR PERFUSION PROTOCOL W AND WO IV CONTRAST; MR SPECTROSCOPY INDICATION: Signs/Symptoms:GBM S/P RT W PROGRESSION VS PSEUDOPROGRESSION; Signs/Symptoms:SPECTRO SCOPY W PROGRESSION VS PSEUDOPROGRESSION COMPARISON: None. ACCESSION NUMBER(S): [id number]; [id number] ORDERING CLINICIAN: INTERFACE UNSPECIFIELDPROVIDER TECHNIQUE: Multi-planar multi-sequential MR imaging of the brain was performed before and after the intravenous administration of contrast. 24 ml of Dotarem was administered (the balance of single use vial(s) has/have been discarded). Advanced imaging was performed utilizing dynamic susceptibility contrast and dynamic contrast-enhanced imaging. Single voxel MR spectroscopy was also performed. FINDINGS: Status post right parietal craniotomy status post resection of right parietal lesion. Resection cavity in the precuneus of the right parietal lobe measuring 2.1 x 0.8 x 1.4 cm (series 21, image 151; series 23, image 33). Irregular enhancement along the margins of the resection cavity most notably seen along the posterior aspect and inferior aspect. The enhancement also contacts the overlying falx. Hemosiderin along the margins of the resection cavity and extending along the surgical tract margins noted. The resection cavity is continuous with an enhancing lesion within the medial right parietal lobe extending into the right splenium of the corpus callosum as well as medial aspect of the right periventricular white matter. This lesion measures approximately 3.3 x 1.4 x 2.2 cm (AP x TV x CC) (series 23, image 29; series 21, image 145). There is apparent associated ependymal enhancement (series 21, image 139). Faint diffusion restriction and susceptibility throughout this lesion. Dynamic susceptibility contrast-enhanced imaging demonstrates minimal without pathologically increased perfusion throughout the lesion (rCBV measuring 1.2). Time perfusion curve demonstrates rapid wash-in and washout persistence above baseline compared to contralateral white matter. Time permeability curve demonstrates rapid followed by persistent slow gradual leakage. 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 Additional remote area of FLAIR signal abnormality involving left frontal periventricular white matter. No acute infarct or intracranial hemorrhage. Left parietal developmental venous anomaly noted. No hydrocephalus. No extra-axial fluid collections. The skull base flow voids are present. The visualized intraorbital contents are normal. The imaged portions of the paranasal sinuses are clear. The mastoid air cells are clear. The visualized osseous structures, soft tissues and partially visualized parotid glands appear normal. Spectroscopy is noncontributory as single voxel is placed over the resection cavity and does not include the heterogeneous enhancing lesion. IMPRESSION: No previous imaging for comparison. Status post right parietal craniotomy status post resection of right parietal lesion. 2.1 cm resection cavity in the right parietal lobe with irregular enhancement along the margins contacting the overlying falx, which may represent residual disease versus posttreatment change. Additional heterogeneously enhancing lesion in the medial right parietal lobe extending into the right splenium of the corpus callosum and medial right periventricular white matter measuring up to 3.3 cm. Perfusion imaging demonstrates decreased perfusion throughout the lesion (rCBV measuring 1.2). Advanced imaging is suggestive of posttreatment change. However, interpretation is significantly limited given single time point. Continued follow-up is recommended. If previous outside imaging is uploaded, an addendum may be performed if clinically requested. FLAIR signal abnormality predominantly within the right parietal lobe but also involving the right hippocampus, dorsal right frontal lobe, in remote FLAIR signal abnormality in the left periventricular frontal white matter. This may represent combination of post treatment change and nonenhancing tumor. Spectroscopy is noncontributory as single voxel is placed over the resection cavity and does not include the heterogeneous enhancing lesion. Signed by: Yola Link 07/09/2024 3:53 PM Dictation workstation: [id number] [facility] Comment on above: Order Comment: ORDER TO BE SCANNED .Auto Diffon 06-20-2024 Basophil, Absolute 0.0 10 3/mcL Normal 0.0-0.3 [facility] Comment on above: Performed By: #### G FR, CMP, CBC, LD, ADIFF, ANEU #### [address] [address] Basophils/100 WBC (Bld) 0.7 % Normal 0.0-2.5 [facility] Comment on above: Performed By: #### G FR, CMP, CBC, LD, ADIFF, ANEU #### [address] [address] Eosinophil, Absolute 0.2 10 3/mcL Normal 0.0-0.7 [facility] Comment on above: Performed By: #### G FR, CMP, CBC, LD, ADIFF, ANEU #### [address] [address] Eosinophils/100 WBC (Bld) 3.2 % Normal 0.0-6.0 [facility] Comment on above: Performed By: #### G FR, CMP, CBC, LD, ADIFF, ANEU #### [address] [address] Lymphocyte, Absolute 1.0 10 3/mcL Normal 0.9-4.3 [facility] Comment on above: Performed By: #### G FR, CMP, CBC, LD, ADIFF, ANEU #### [address] [address] Lymphocytes/100 WBC (Bld) 20.2 % Normal 20.0-40.0 [facility] Comment on above: Performed By: #### G FR, CMP, CBC, LD, ADIFF, ANEU #### [address] [address] Monocyte, Absolute 0.6 10 3/mcL Normal 0.1-1.4 [facility] Comment on above: Performed By: #### G FR, CMP, CBC, LD, ADIFF, ANEU #### [address] [address] Monocytes/100 WBC (Bld) 11.5 % Normal 2.0-13.0 [facility] Comment on above: Performed By: #### G FR, CMP, CBC, LD, ADIFF, ANEU #### [address] [address] Neutrophils/100 WBC (Bld) 64.4 % Normal 50.0-75.0 [facility] Comment on above: Performed By: #### G FR, CMP, CBC, LD, ADIFF, ANEU #### [address] [address] .GFRon 06-20-2024 Estimated Glomerular Filtration Rate 81 ml/min/1.73sqm Normal [facility] Comment on above: Result Comment: Stages of Chronic Kidney Disease (CKD) Stage Description eGFR(ml/min/1.73 sq.m.) CKD 1 Normal kidney function or >=90 normal kindney function with possible kidney damage (ex. Proteinuria) CKD 2 Kidney damage with mild loss 60-89 of kidney function CKD 3a Mild to moderate loss of kidney 45-59 function CKD 3b Moderate to severe loss of 30-44 of kindey function CKD 4 Severe loss of kidney function 15-29 CKD 5 Kidney failure <15 Note: (go live 2024) the eGFR calculation was updated to the 2020 CKD-EPI creatinine equation without a race factor to calculate the eGFR results. Performed By: #### G FR, CMP, CBC, LD, ADIFF, ANEU #### [place] [id number] .NEUABSon 06-20-2024 Neutrophil, Absolute 3.3 10 3/mcL Normal 2.3-8.1 [facility] Comment on above: Performed By: #### G FR, CMP, CBC, LD, ADIFF, ANEU #### [place] [address] CBCon 06-20-2024 Erythrocyte distribution width (RBC) [Ratio] 13.0 % Normal 11.5-15.5 [facility] Comment on above: Performed By: #### G FR, CMP, CBC, LD, ADIFF, ANEU #### [place] [address] Hematocrit (Bld) [Volume fraction] 42.1 % Normal 34.0-46.0 [facility] Comment on above: Performed By: #### G FR, CMP, CBC, LD, ADIFF, ANEU #### [place] [address] Hgb 14.9 G/dL Normal 12.0-16.0 [facility] Comment on above: Performed By: #### G FR, CMP, CBC, LD, ADIFF, ANEU #### [place] [address] MCH (RBC) [Entitic mass] 32.7 pg Normal 27.0-33.0 [facility] Comment on above: Performed By: #### G FR, CMP, CBC, LD, ADIFF, ANEU #### [place] [address] MCHC 35.4 G/dL Normal 32.0-36.0 [facility] Comment on above: Performed By: #### G FR, CMP, CBC, LD, ADIFF, ANEU #### [place] [address] MCV (RBC) [Entitic vol] 92.4 fL Normal 80.0-99.0 [facility] Comment on above: Performed By: #### G FR, CMP, CBC, LD, ADIFF, ANEU #### [place] [address] Platelet 244 10 3/mcL Normal 150-450 [facility] Comment on above: Performed By: #### G FR, CMP, CBC, LD, ADIFF, ANEU #### [place] [address] Platelet mean volume (Bld) [Entitic vol] 7.4 fL Normal 6.6-10.5 [facility] Comment on above: Performed By: #### G FR, CMP, CBC, LD, ADIFF, ANEU #### [place] [address] RBC 4.55 10 6/mcL Normal 4.10-5.30 [facility] Comment on above: Performed By: #### G FR, CMP, CBC, LD, ADIFF, ANEU #### [place] [address] WBC 5.1 10 3/mcL Normal 4.5-10.8 [facility] Comment on above: Performed By: #### G FR, CMP, CBC, LD, ADIFF, ANEU #### [place] [address] CMPon 06-20-2024 Albumin Level 3.8 G/dL Normal 3.2-4.8 [facility] Comment on above: Performed By: #### G FR, CMP, CBC, LD, ADIFF, ANEU #### [place] [address] Albumin/Globulin [Mass ratio] 1.2 {ratio} Normal 0.9-1.6 [facility] Comment on above: Performed By: #### G FR, CMP, CBC, LD, ADIFF, ANEU #### [place] [address] ALP [Catalytic activity/Vol] 97 U/L Normal 38-126 [facility] Comment on above: Performed By: #### G FR, CMP, CBC, LD, ADIFF, ANEU #### [address] [address] ALT [Catalytic activity/Vol] 35 U/L Normal 10-49 [facility] Comment on above: Performed By: #### G FR, CMP, CBC, LD, ADIFF, ANEU #### [address] [address] AST [Catalytic activity/Vol] 29 U/L Normal 8-34 [facility] Comment on above: Performed By: #### G FR, CMP, CBC, LD, ADIFF, ANEU #### [address] [address] Bili Total 0.90 mg/dL Normal 0.20-1.20 [facility] Comment on above: Result Comment: Use of this assay is not recommended for patients undergoing treatment with eltrombopag due to the potential for falsely elevated results. Performed By: #### G FR, CMP, CBC, LD, ADIFF, ANEU #### [place] [id number] BUN/Creatinine Ratio 10.4 ratio Normal 10.0-22.0 [facility] Comment on above: Performed By: #### G FR, CMP, CBC, LD, ADIFF, ANEU #### [address] [address] Calcium [Mass/Vol] 9.7 mg/dL Normal 8.7-10.4 [facility] Comment on above: Performed By: #### G FR, CMP, CBC, LD, ADIFF, ANEU #### [address] [address] Chloride [Moles/Vol] 107 mmol/L Normal 98-110 [facility] Comment on above: Performed By: #### G FR, CMP, CBC, LD, ADIFF, ANEU #### [address] [address] CO2 [Moles/Vol] 26 mmol/L Normal 22-32 [facility] Comment on above: Performed By: #### G FR, CMP, CBC, LD, ADIFF, ANEU #### [address] [address] Creatinine [Mass/Vol] 0.77 mg/dL Normal 0.50-1.20 [facility] Comment on above: Result Comment: Test ing performed on Numecent analyzer using enzymatic creatinine methodology. Performed By: #### G FR, CMP, CBC, LD, ADIFF, ANEU #### [address] [address] Electrolyte Balance 7.0 mEq/L Normal 4.0-15.0 [facility] Comment on above: Performed By: #### G FR, CMP, CBC, LD, ADIFF, ANEU #### [address] [address] Globulin 3.2 G/dL Normal 1.5-3.8 [facility] Comment on above: Performed By: #### G FR, CMP, CBC, LD, ADIFF, ANEU #### [address] [address] Glucose [Mass/Vol] 168 mg/dL High 82-115 [facility] Comment on above: Performed By: #### G FR, CMP, CBC, LD, ADIFF, ANEU #### [address] [address] Potassium [Moles/Vol] 3.4 mmol/L Low 3.5-5.0 [facility] Comment on above: Performed By: #### G FR, CMP, CBC, LD, ADIFF, ANEU #### [address] [address] Sodium [Moles/Vol] 140 mmol/L Normal 136-145 [facility] Comment on above: Performed By: #### G FR, CMP, CBC, LD, ADIFF, ANEU #### [address] [address] Total Protein 7.0 G/dL Normal 5.7-8.2 [facility] Comment on above: Performed By: #### G FR, CMP, CBC, LD, ADIFF, ANEU #### [address] [address] Urea nitrogen [Mass/Vol] 8.0 mg/dL Normal 8.0-22.0 [facility] Comment on above: Performed By: #### G FR, CMP, CBC, LD, ADIFF, ANEU #### [place] [address] LABORATORYOrdered By: SYSTEM SYSTEM on 06-20-2024 Albumin BCP dye [Mass/Vol] 3.8 G/dL Normal 3.2 - 4.8 G/dL AH ADM SS Albumin/Globulin [Mass ratio] 1.2 {ratio} Normal 0.9 - 1.6 ratio AH ADM SS ALP [Catalytic activity/Vol] 97 U/L Normal 38 - 126 U/L AH ADM SS ALT No additional P-5'-P [Catalytic activity/Vol] 35 U/L Normal 10 - 49 U/L AH ADM SS AST [Catalytic activity/Vol] 29 U/L Normal 8 - 34 U/L AH ADM SS Basophils (Bld) [#/Vol] 0.0 103/mcL Normal 0.0 - 0.3 10^3/mcL AH Workflow SS Basophils/100 WBC (Bld) 0.7 % Normal 0.0 - 2.5 % AH Workflow SS Bilirubin [Mass/Vol] 0.90 mg/dL Normal 0.20 - 1.20 mg/dL AH ADM SS Comment on above: Interpretive Data: U se of this assay is not recommended for patients undergoing treatment with eltrombopag due to the potential for falsely elevated results. Calcium [Mass/Vol] 9.7 mg/dL Normal 8.7 - 10. 4 mg/dL AH ADM SS Chloride [Moles/Vol] 107 mmol/L Normal 98 - 11 0 mEq/L AH ADM SS CO2 [Moles/Vol] 26 mmol/L Normal 22 - 32 mEq/L AH ADM SS Creatinine [Mass/Vol] 0.77 mg/dL Normal 0.50 - 1.20 mg/dL AH ADM SS Comment on above: Interpretive Data: T esting performed on Numecent analyzer using enzymatic creatinine methodology. Electrolyte Balance 7.0 mEq/L Normal 4.0 - 15 .0 mEq/L AH ADM SS Eosinophils (Bld) [#/Vol] 0.2 103/mcL Normal 0.0 - 0.7 10^3/mcL AH Workflow SS Eosinophils/100 WBC (Bld) 3.2 % Normal 0.0 - 6.0 % AH Workflow SS Erythrocyte distribution width (RBC) [Ratio] 13.0 % Normal 11.5 - 15.5 % Workflow SS Estimated Glomerular Filtration Rate 81 ml/min/1.73sqm Invalid Interpretation Code ADM SS Comment on above: Interpretive Data: Stages of Chronic Kidney Disease (CKD) Stage Description eGFR(ml/min/1.73 sq.m.) CKD 1 Normal kidney function or >=90 normal kindney function with possible kidney damage (ex. Proteinuria) CKD 2 Kidney damage with mild loss 60-89 of kidney function CKD 3a Mild to moderate loss of kidney 45-59 function CKD 3b Moderate to severe loss of 30-44 of kindey function CKD 4 Severe loss of kidney function 15-29 CKD 5 Kidney failure <15 Note: (go live 2024) the eGFR calculation was updated to the 2020 CKD-EPI creatinine equation without a race factor to calculate the eGFR results. Globulin 3.2 G/dL Normal 1.5 - 3.8 G/dL ADM SS Glucose [Mass/Vol] 168 mg/dL High 82 - 115 mg/dL ADM SS Hematocrit (Bld) [Volume fraction] 42.1 % Normal 34.0 - 46.0 % Workflow SS Hemoglobin (Bld) [Mass/Vol] 14.9 G/dL Normal 12.0 - 16.0 G/dL Workflow SS LDH Lactate to pyruvate reaction [Catalytic activity/Vol] 226 1 Normal 120 - 246 U/L ADM SS Lymphocytes (Bld) [#/Vol] 1.0 103/mcL Normal 0.9 - 4.3 10^3/mcL Workflow SS Lymphocytes/100 WBC (Bld) 20.2 % Normal 20.0 - 40.0 % Workflow SS MCH (RBC) [Entitic mass] 32.7 pg Normal 27.0 - 33.0 pg Workflow SS MCHC 35.4 G/dL Normal 32.0 - 36.0 G/dL Workflow SS MCV (RBC) [Entitic vol] 92.4 fL Normal 80.0 - 99.0 fL Workflow SS Monocytes (Bld) [#/Vol] 0.6 103/mcL Normal 0.1 - 1.4 10^3/mcL Workflow SS Monocytes/100 WBC (Bld) 11.5 % Normal 2.0 - 13.0 % Workflow SS Neutrophils (Bld) [#/Vol] 3.3 103/mcL Normal 2.3 - 8.1 10^3/mcL AH Workflow SS Neutrophils/100 WBC (Bld) 64.4 % Normal 50.0 - 75.0 % AH Workflow SS Platelet mean volume (Bld) [Entitic vol] 7.4 fL Normal 6.6 - 10.5 fL AH Workflow SS Platelets (Bld) [#/Vol] 244 103/mcL Normal 150 - 450 10^3/mcL AH Workflow SS Potassium [Moles/Vol] 3.4 mmol/L Low 3.5 - 5.0 mEq/L AH ADM SS Protein [Mass/Vol] 7.0 G/dL Normal 5.7 - 8.2 G/dL AH ADM SS RBC (Bld) [#/Vol] 4.55 106/mcL Normal 4.10 - 5.3 0 10^6/mcL AH Workflow SS Sodium [Moles/Vol] 140 mmol/L Normal 136 - 145 mEq/L ADM SS Urea nitrogen [Mass/Vol] 8.0 mg/dL Normal 8.0 - 22.0 mg/dL ADM SS Urea nitrogen/Creatinine [Mass ratio] 10.4 ratio Normal 10.0 - 22.0 ratio AH ADM SS WBC (Bld) [#/Vol] 5.1 103/mcL Normal 4.5 - 10.8 10^3/mcL Workflow SS LDHon 06-20-2024 LDH 226 U/L Normal 120-246 [facility] Comment on above: Performed By: #### G FR, CMP, CBC, LD, ADIFF, ANEU #### [place] [address] Absolute neutrophil countOrd ered By: Will Lim on 05-29-2024 Neutrophils (Bld) [#/Vol] 2.8 10*3/uL 2.0-7.7 [facility] Anion gap in Serum or Plasma Ordered By: Will Lim on 05-29-2024 Anion gap [Moles/Vol] 9 mmol/L 5-15 [facility] BUN/creatinine ratioOrdered By: Will Lim on 05-29-2024 Urea nitrogen/Creatinine [Mass ratio] 10.9 mg/mg 10-20 [facility] Basophil percentageOrdered B y: Will Lim on 05-29-2024 Basophils/100 WBC (Bld) 0.9 % 0-[address] [facility] Bilirubin, totalOrdered By: Will Raphael on 05-29-2024 Bilirubin [Mass/Vol] 0.68 mg/dL 0.00-1.30 [facility] CBC W/Diff, Automatedon - Absolute Lymph 0.90 X10 3/uL Normal 0.83-4.51 [facility] Comment on above: Performed By: #### L 100.0100, L501.9520, L506.1001, L500.4050 #### [facility] [address] [place], [address] Absolute Neut 2.8 X10 3/uL Normal 2.0-7.7 [facility] Comment on above: Performed By: #### L 100.0100, L501.9520, L506.1001, L500.4050 #### [facility] [address] [place], [address] Basophils/100 WBC (Bld) 0.9 % Normal 0-[address] [facility] Comment on above: Performed By: #### L 100.0100, L501.9520, L506.1001, L500.4050 #### [facility] [address] [place], [address] Eosinophils/100 WBC (Bld) 2.7 % Normal 0-5 [facility] Comment on above: Performed By: #### L 100.0100, L501.9520, L506.1001, L500.4050 #### [facility] [address] [place], [address] Erythrocyte distribution width (RBC) [Ratio] 12.3 % Normal 11.6-14.6 [facility] Comment on above: Performed By: #### L 100.0100, L501.9520, L506.1001, L500.4050 #### [facility] [address] [place], [address] Hematocrit (Bld) [Volume fraction] 40.0 % Normal 37-47 [facility] Comment on above: Performed By: #### L 100.0100, L501.9520, L506.1001, L500.4050 #### [facility] [address] [place], [address] Hemoglobin (Bld) [Mass/Vol] 14.2 g/dL Normal 12.0-15.0 [facility] Comment on above: Performed By: #### L 100.0100, L501.9520, L506.1001, L500.4050 #### [facility] [address] [place], [address] IG% 0.200 Normal 0.0-0.9 [facility] Comment on above: Result Comment: IG% - Immature Granulocytes (promyelocytes, myelocytes and metamyelocytes) > 1% indicates that a LEFT SHIFT is Present. Performed By: #### L 100.0100, L501.9520, L506.1001, L500.4050 #### [facility] [address] [place], [address] Lymphocytes/100 WBC (Bld) 20.2 % Normal 19-41 [facility] Comment on above: Performed By: #### L 100.0100, L501.9520, L506.1001, L500.4050 #### [facility] [address] [place], [address] MCH (RBC) [Entitic mass] 32.7 pg High 27.0-32.0 [facility] Comment on above: Performed By: #### L 100.0100, L501.9520, L506.1001, L500.4050 #### [facility] [address] [place], [address] MCHC (RBC) [Mass/Vol] 35.5 g/dL Normal 32-36 [facility] Comment on above: Performed By: #### L 100.0100, L501.9520, L506.1001, L500.4050 #### [facility] [address] [place], [address] MCV (RBC) [Entitic vol] 92.2 fL Normal 81-[address] [facility] Comment on above: Performed By: #### L 100.0100, L501.9520, L506.1001, L500.4050 #### [facility] [address] [place], [address] Monocytes/100 WBC (Bld) 12.6 % High 0-[address] [facility] Comment on above: Performed By: #### L 100.0100, L501.9520, L506.1001, L500.4050 #### [facility] [address] [place], [address] Neutrophils/100 WBC (Bld) 63.4 % Normal 47-70 [facility] Comment on above: Performed By: #### L 100.0100, L501.9520, L506.1001, L500.4050 #### [facility] [address] [place], [address] Nucleated RBC (Bld) [#/Vol] 0 10*3/uL Normal 0-5 [facility] Comment on above: Performed By: #### L 100.0100, L501.9520, L506.1001, L500.4050 #### [facility] [address] [place], [address] Platelet mean volume (Bld) [Entitic vol] 8.8 fL Normal 6.2-12.0 [facility] Comment on above: Performed By: #### L 100.0100, L501.9520, L506.1001, L500.4050 #### [facility] [address] [place], [address] Platelets (Bld) [#/Vol] 209 10*3/uL Normal 150-450 [facility] Comment on above: Performed By: #### L 100.0100, L501.9520, L506.1001, L500.4050 #### [facility] [address] [place], [address] RBC (Bld) [#/Vol] 4.34 10*6/uL Normal 4.2-5.4 [facility] Comment on above: Performed By: #### L 100.0100, L501.9520, L506.1001, L500.4050 #### [facility] [address] [place], [address] RDW SD 41.1 fl Normal 35.1-43.9 [facility] Comment on above: Performed By: #### L 100.0100, L501.9520, L506.1001, L500.4050 #### [facility] [address] [place], [address] WBC (Bld) [#/Vol] 4.5 10*3/uL Normal 4.4-11.[address] [facility] Comment on above: Performed By: #### L 100.0100, L501.9520, L506.1001, L500.4050 #### [facility] [address] [place], [address] Carbon dioxide, total [Moles /volume] in Central venous bloodOrdered By: Will Lim on 05-29-2024 CO2 [Moles/Vol] 27.1 mmol/L 21.0-32.0 [facility] Chloride assayOrdered By: Toni Lim on 05-29-2024 Chloride [Moles/Vol] 105 mmol/L 98-108 [facility] Comprehensive Metabolic Prof ilon 05-29-2024 Albumin [Mass/Vol] 4.0 g/dL Normal 3.4-4.[address] [facility] Comment on above: Performed By: #### L 100.0100, L501.5200, L500.2500, L501.6710 #### [facility] [address] [place], [address] Albumin/Globulin [Mass ratio] 1.5 {ratio} Normal 0.9-2.4 [facility] Comment on above: Performed By: #### L 100.0100, L501.5200, L500.2500, L501.6710 #### [facility] [address] [place], [address] ALK PHOS 96 U/L Normal 35-104 [facility] Comment on above: Performed By: #### L 100.0100, L501.5200, L500.2500, L501.6710 #### [facility] [address] [place], [address] ALT [Catalytic activity/Vol] 25 U/L Normal <=34 [facility] Comment on above: Performed By: #### L 100.0100, L501.5200, L500.2500, L501.6710 #### [facility] [address] [place], [address] AST [Catalytic activity/Vol] 24 U/L Normal <=31 [facility] Comment on above: Performed By: #### L 100.0100, L501.5200, L500.2500, L501.6710 #### [facility] [address] [place], [address] Bilirubin [Mass/Vol] 0.68 mg/dL Normal 0.00-1.30 [facility] Comment on above: Performed By: #### L 100.0100, L501.5200, L500.2500, L501.6710 #### [facility] [address] [place], [address] BUN/CRE 10.9 RATIO Normal 10-20 [facility] Comment on above: Performed By: #### L 100.0100, L501.5200, L500.2500, L501.6710 #### [facility] [address] [place], [address] Calcium [Mass/Vol] 9.8 mg/dL Normal 7.6-11.[address] [facility] Comment on above: Performed By: #### L 100.0100, L501.5200, L500.2500, L501.6710 #### [facility] [address] [place], [address] Chloride [Moles/Vol] 105 mmol/L Normal 98-108 [facility] Comment on above: Performed By: #### L 100.0100, L501.5200, L500.2500, L501.6710 #### [facility] [address] [place], [address] CO2 [Moles/Vol] 27.1 mmol/L Normal 21.0-32.0 [facility] Comment on above: Performed By: #### L 100.0100, L501.5200, L500.2500, L501.6710 #### [facility] [address] [place], [address] Creatinine [Mass/Vol] 0.91 mg/dL Normal 0.70-1.20 [facility] Comment on above: Performed By: #### L 100.0100, L501.5200, L500.2500, L501.6710 #### [facility] [address] [place], [address] GAP 9 Normal 5-15 [facility] Comment on above: Performed By: #### L 100.0100, L501.5200, L500.2500, L501.6710 #### [facility] [address] [place], [address] GFR/1.73 sq M.predicted among non-blacks MDRD (S/P/Bld) [Vol rate/Area] 66 mL/min/{1.73_m2} Normal >60 [facility] Comment on above: Result Comment: mL/m in/1.73m2 CKD-EPI Creatinine Equation (2020) Performed By: #### L 100.0100, L501.5200, L500.2500, L501.6710 #### [facility] [address] [place], [address] Globulin (S) [Mass/Vol] 2.7 g/dL Normal 2.2-4.2 [facility] Comment on above: Performed By: #### L 100.0100, L501.5200, L500.2500, L501.6710 #### [facility] [address] [place], [address] Glucose [Mass/Vol] 122 mg/dL High 70-[address] [facility] Comment on above: Performed By: #### L 100.0100, L501.5200, L500.2500, L501.6710 #### [facility] [address] [place], [address] Potassium [Moles/Vol] 3.9 mmol/L Normal 3.3-5.1 [facility] Comment on above: Performed By: #### L 100.0100, L501.5200, L500.2500, L501.6710 #### [facility] [address] [place], [address] Sodium [Moles/Vol] 141 mmol/L Normal 133-[address] [facility] Comment on above: Performed By: #### L 100.0100, L501.5200, L500.2500, L501.6710 #### [facility] [address] [place], [address] T PROT 6.6 g/dL Normal 5.9-8.4 [facility] Comment on above: Performed By: #### L 100.0100, L501.5200, L500.2500, L501.6710 #### [facility] [address] [place], [address] Urea nitrogen [Mass/Vol] 10 mg/dL Normal 4-19 [facility] Comment on above: Performed By: #### L 100.0100, L501.5200, L500.2500, L501.6710 #### [facility] [address] [place], [address] Eosinophil percentageOrdered By: Will Lim on 05-29-2024 Eosinophils/100 WBC (Bld) 2.7 % 0-5 [facility] Erythrocyte distribution wid th (RBC) [Ratio]Ordered By: Will Lim on 05-29-2024 Erythrocyte distribution width (RBC) [Entitic vol] 41.1 fL 35.1-43.9 [facility] Erythrocyte distribution wid th ratioOrdered By: Will Lim 05-29-2024 Erythrocyte distribution width (RBC) [Ratio] 12.3 % 11.6-14.6 [facility] GFR/1.73 sq M.predicted brianna g non-blacks MDRD (S/P/Bld) [Vol rate/Area]Ordered By: Will Lim 05-29-2024 Estimated GFR (MDRD) Non-Af Amer 66 >60 [facility] Comment on above: mL/min/1.73m2 CKD-EP I Creatinine Equation (2020) Hematocrit Auto (Bld) [Volum e fraction]Ordered By: Will Lim 05-29-2024 Hematocrit (Bld) [Volume fraction] 40.0 % 37-47 [facility] Hemoglobin measurementOrdere d By: Will Lim 05-29-2024 Hemoglobin (Bld) [Mass/Vol] 14.2 g/dL 12.0-15.0 [facility] Immature granulocytes/100 WB C Auto (Bld)Ordered By: Will Lim 05-29-2024 Immature granulocytes/100 WBC (Bld) 0.200 % 0.0-0.9 [facility] Comment on above: IG% - Immature Granu locytes (promyelocytes, myelocytes and metamyelocytes) > 1% indicates that a LEFT SHIFT is Present. L506.1001on 05-29-2024 Vitamin D 25-OH 22.2 ng/mL Low 30-100 [facility] Comment on above: Result Comment: Rebeca min D Status Deficiency: <20 ng/mL (50nmol/L) Insufficiency: 20-30 ng/mL (50-75 nmol/L) Sufficiency: 30-100 ng/mL (75-250 nmol/L) Toxicity: >100 ng/mL (>250 nmol/L) Performed By: #### L 100.0100, L501.5200, L500.2500, L501.6710 #### [facility] [address] [place], [id number] Laboratory - Chemistry and C hemistry - challengeOrdered By: Will Lim on 05-29-2024 AST [Catalytic activity/Vol] 24 U/L <32 [facility] Lymphocytes Auto (Unsp spec) [#/Vol]Ordered By: Will Lim on 05-29-2024 Lymphocytes (Bld) [#/Vol] 0.90 10*3/uL 0.83-4.51 [facility] Lymphocytes/100 WBC Auto (Un sp spec)Ordered By: Will Lim 05-29-2024 Lymphocytes/100 WBC (Bld) 20.2 % 19-41 [facility] MCV (mean corpuscular volume ) determinationOrdered By: Will Lim 05-29-2024 MCV (RBC) [Entitic vol] 92.2 fL 81-[address] [facility] Mean corpuscular hemoglobin (MCH) determinationOrdered By: Will Lim 05-29-2024 MCH (RBC) [Entitic mass] 32.7 pg High 27.0-32.0 [facility] Mean corpuscular hemoglobin concentration (MCHC) determinationOrdered By: Will Lim 05-29-2024 MCHC (RBC) [Mass/Vol] 35.5 g/dL 32-36 [facility] Mean platelet volume determi nationOrdered By: Will Lim 05-29-2024 Platelet mean volume (Bld) [Entitic vol] 8.8 fL 6.2-12.0 [facility] Monocyte percentageOrdered B y: Will Lim on 05-29-2024 Monocytes/100 WBC (Bld) 12.6 % High 0-[address] [facility] Neutrophil percentageOrdered By: Will Lim on 05-29-2024 Neutrophils/100 WBC (Bld) 63.4 % 47-70 [facility] Nucleated red blood cell per centageOrdered By: Will Lim on 05-29-2024 Nucleated RBC/100 WBC (Bld) [Ratio] 0 % 0-5 [facility] Platelet countOrdered By: Toni Lim on 05-29-2024 Platelets (Bld) [#/Vol] 209 10*3/uL 150-450 [facility] Potassium (Unsp spec) [Mass/ Vol]Ordered By: Will Lim on 05-29-2024 Potassium [Moles/Vol] 3.9 mmol/L 3.3-5.1 [facility] RBC Auto (Bld) [#/Vol]Ordere d By: Will Lim on 05-29-2024 RBC (Bld) [#/Vol] 4.34 10*6/uL 4.2-5.4 [facility] Serum creatinine measurement (mass/volume)Ordered By: Will Lim on 05-29-2024 Creatinine [Mass/Vol] 0.91 mg/dL 0.70-1.20 [facility] Serum globulin measurementOr dered By: Will Lim 05-29-2024 Globulin (S) [Mass/Vol] 2.7 g/dL 2.2-4.[address] [facility] Serum glucose measurement (m ass/volume)Ordered By: Will Lim on 05-29-2024 Glucose [Mass/Vol] 122 mg/dL High 70-[address] [facility] Serum or plasma alanine mayes otransferase (ALT) measurementOrdered By: Will Lim 05-29-2024 ALT [Catalytic activity/Vol] 25 U/L <35 [facility] Serum or plasma albumin olive urement (mass/volume)Ordered By: Will Lim on 05-29-2024 Albumin [Mass/Vol] 4.0 g/dL 3.4-4.[address] [facility] Serum or plasma albumin/glob ulin mass ratioOrdered By: Will Lim 05-29-2024 Albumin/Globulin [Mass ratio] 1.5 {ratio} 0.9-2.4 [facility] Serum or plasma alkaline janis sphatase measurementOrdered By: Will Lim 05-29-2024 ALP [Catalytic activity/Vol] 96 U/L 35-104 [facility] Serum or plasma calcium olive urement (mass/volume)Ordered By: Will Lim 05-29-2024 Calcium [Mass/Vol] 9.8 mg/dL 7.6-11.[address] [facility] Serum or plasma urea nitroge n measurement (mass/volume)Ordered By: Will Lim 05-29-2024 Urea nitrogen [Mass/Vol] 10 mg/dL 4-19 [facility] Sodium levelOrdered By: Will Lim 05-29-2024 Sodium [Moles/Vol] 141 mmol/L 133-[address] [facility] TSH DL <= 0.005 mIU/L QnOrde red By: Will Lim 05-29-2024 Thyroid Stimulating Hormone (TSH) 0.074 uIU/mL Low 0.300-4.200 [facility] Thyroid Stim Hormone (TSH)on 05-29-2024 TSH 0.074 uIU/mL Low 0.300-4.200 [facility] Comment on above: Performed By: #### L 100.0100, L501.5200, L500.2500, L501.6710 #### [facility] [address] [place] [address], [id number] Total proteinOrdered By: Will Lim 05-29-2024 Protein [Mass/Vol] 6.6 g/dL 5.9-8.[address] [facility] Vitamin D, 25-hydroxyOrdered By: Will Lim 05-29-2024 Vitamin D 25-Hydroxy 22.2 ng/mL Low 30-100 [facility] Comment on above: Vitamin D StatusDefi ciency: <20 ng/mL (50nmol/L)Insufficiency: 20-30 ng/mL (50-75 nmol/L)Sufficiency: 30-100 ng/mL (75-250 nmol/L)Toxicity: >100 ng/mL (>250 nmol/L) White blood cell (WBC) count Ordered By: Will Lim on 05-29-2024 WBC (Bld) [#/Vol] 4.5 10*3/uL 4.4-11.[address] [facility] .Auto Diffon 05-23-2024 Basophil, Absolute 0.1 10 3/mcL Normal 0.0-0.3 [facility] Comment on above: Performed By: #### G FR, CMP, CBC, LD, ADIFF, ANEU #### [address] [address] Basophils/100 WBC (Bld) 1.0 % Normal 0.0-2.5 [facility] Comment on above: Performed By: #### G FR, CMP, CBC, LD, ADIFF, ANEU #### [address] [address] Eosinophil, Absolute 0.1 10 3/mcL Normal 0.0-0.7 [facility] Comment on above: Performed By: #### G FR, CMP, CBC, LD, ADIFF, ANEU #### [address] [address] Eosinophils/100 WBC (Bld) 2.6 % Normal 0.0-6.0 [facility] Comment on above: Performed By: #### G FR, CMP, CBC, LD, ADIFF, ANEU #### [address] [address] Lymphocyte, Absolute 1.1 10 3/mcL Normal 0.9-4.3 [facility] Comment on above: Performed By: #### G FR, CMP, CBC, LD, ADIFF, ANEU #### [address] [address] Lymphocytes/100 WBC (Bld) 21.0 % Normal 20.0-40.0 [facility] Comment on above: Performed By: #### G FR, CMP, CBC, LD, ADIFF, ANEU #### [address] [address] Monocyte, Absolute 0.7 10 3/mcL Normal 0.1-1.4 [facility] Comment on above: Performed By: #### G FR, CMP, CBC, LD, ADIFF, ANEU #### [address] [address] Monocytes/100 WBC (Bld) 13.6 % High 2.0-13.0 [facility] Comment on above: Performed By: #### G FR, CMP, CBC, LD, ADIFF, ANEU #### [address] [address] Neutrophils/100 WBC (Bld) 61.8 % Normal 50.0-75.0 [facility] Comment on above: Performed By: #### G FR, CMP, CBC, LD, ADIFF, ANEU #### [address] [address] .GFRon 05-23-2024 Estimated Glomerular Filtration Rate 79 ml/min/1.73sqm Normal [facility] Comment on above: Result Comment: Stages of Chronic Kidney Disease (CKD) Stage Description eGFR(ml/min/1.73 sq.m.) CKD 1 Normal kidney function or >=90 normal kindney function with possible kidney damage (ex. Proteinuria) CKD 2 Kidney damage with mild loss 60-89 of kidney function CKD 3a Mild to moderate loss of kidney 45-59 function CKD 3b Moderate to severe loss of 30-44 of kindey function CKD 4 Severe loss of kidney function 15-29 CKD 5 Kidney failure <15 Note: (go live 2024) the eGFR calculation was updated to the 2020 CKD-EPI creatinine equation without a race factor to calculate the eGFR results. Performed By: #### G FR, CMP, CBC, LD, ADIFF, ANEU #### [address] [address] .NEUABSon 05-23-2024 Neutrophil, Absolute 3.1 10 3/mcL Normal 2.3-8.1 [facility] Comment on above: Performed By: #### G FR, CMP, CBC, LD, ADIFF, ANEU #### [address] [address] CBCon 05-23-2024 Erythrocyte distribution width (RBC) [Ratio] 13.3 % Normal 11.5-15.5 [facility] Comment on above: Performed By: #### G FR, CMP, CBC, LD, ADIFF, ANEU #### [place] [address] Hematocrit (Bld) [Volume fraction] 43.0 % Normal 34.0-46.0 [facility] Comment on above: Performed By: #### G FR, CMP, CBC, LD, ADIFF, ANEU #### [place] [address] Hgb 14.9 G/dL Normal 12.0-16.0 [facility] Comment on above: Performed By: #### G FR, CMP, CBC, LD, ADIFF, ANEU #### [place] [address] MCH (RBC) [Entitic mass] 32.9 pg Normal 27.0-33.0 [facility] Comment on above: Performed By: #### G FR, CMP, CBC, LD, ADIFF, ANEU #### [place] [address] MCHC 34.7 G/dL Normal 32.0-36.0 [facility] Comment on above: Performed By: #### G FR, CMP, CBC, LD, ADIFF, ANEU #### [place] [address] MCV (RBC) [Entitic vol] 94.9 fL Normal 80.0-99.0 [facility] Comment on above: Performed By: #### G FR, CMP, CBC, LD, ADIFF, ANEU #### [place] [address] Platelet 197 10 3/mcL Normal 150-450 [facility] Comment on above: Performed By: #### G FR, CMP, CBC, LD, ADIFF, ANEU #### [place] [address] Platelet mean volume (Bld) [Entitic vol] 7.1 fL Normal 6.6-10.5 [facility] Comment on above: Performed By: #### G FR, CMP, CBC, LD, ADIFF, ANEU #### [place] [address] RBC 4.53 10 6/mcL Normal 4.10-5.30 [facility] Comment on above: Performed By: #### G FR, CMP, CBC, LD, ADIFF, ANEU #### [place] [address] WBC 5.1 10 3/mcL Normal 4.5-10.8 [facility] Comment on above: Performed By: #### G FR, CMP, CBC, LD, ADIFF, ANEU #### [place] [address] CMPon 05-23-2024 Albumin Level 3.9 G/dL Normal 3.2-4.8 [facility] Comment on above: Performed By: #### G FR, CMP, CBC, LD, ADIFF, ANEU #### [place] [address] Albumin/Globulin [Mass ratio] 1.3 {ratio} Normal 0.9-1.6 [facility] Comment on above: Performed By: #### G FR, CMP, CBC, LD, ADIFF, ANEU #### [place] [address] ALP [Catalytic activity/Vol] 92 U/L Normal 38-126 [facility] Comment on above: Performed By: #### G FR, CMP, CBC, LD, ADIFF, ANEU #### [place] [address] ALT [Catalytic activity/Vol] 29 U/L Normal 10-49 [facility] Comment on above: Performed By: #### G FR, CMP, CBC, LD, ADIFF, ANEU #### [place] [address] AST [Catalytic activity/Vol] 31 U/L Normal 8-34 [facility] Comment on above: Performed By: #### G FR, CMP, CBC, LD, ADIFF, ANEU #### [place] [address] Bili Total 0.70 mg/dL Normal 0.20-1.20 [facility] Comment on above: Result Comment: Use of this assay is not recommended for patients undergoing treatment with eltrombopag due to the potential for falsely elevated results. Performed By: #### G FR, CMP, CBC, LD, ADIFF, ANEU #### [place] [address] BUN/Creatinine Ratio 11.4 ratio Normal 10.0-22.0 [facility] Comment on above: Performed By: #### G FR, CMP, CBC, LD, ADIFF, ANEU #### [place] [address] Calcium [Mass/Vol] 9.3 mg/dL Normal 8.7-10.4 [facility] Comment on above: Performed By: #### G FR, CMP, CBC, LD, ADIFF, ANEU #### [place] [address] Chloride [Moles/Vol] 107 mmol/L Normal 98-110 [facility] Comment on above: Performed By: #### G FR, CMP, CBC, LD, ADIFF, ANEU #### [place] [address] CO2 [Moles/Vol] 28 mmol/L Normal 22-32 [facility] Comment on above: Performed By: #### G FR, CMP, CBC, LD, ADIFF, ANEU #### [place] [address] Creatinine [Mass/Vol] 0.79 mg/dL Normal 0.50-1.20 [facility] Comment on above: Result Comment: Test ing performed on Numecent analyzer using enzymatic creatinine methodology. Performed By: #### G FR, CMP, CBC, LD, ADIFF, ANEU #### [place] [address] Electrolyte Balance 3.0 mEq/L Low 4.0-15.0 [facility] Comment on above: Performed By: #### G FR, CMP, CBC, LD, ADIFF, ANEU #### [place] [id number] Globulin 2.9 G/dL Normal 1.5-3.8 [facility] Comment on above: Performed By: #### G FR, CMP, CBC, LD, ADIFF, ANEU #### [address] [address] Glucose [Mass/Vol] 116 mg/dL High 82-115 [facility] Comment on above: Performed By: #### G FR, CMP, CBC, LD, ADIFF, ANEU #### [address] [address] Potassium [Moles/Vol] 3.9 mmol/L Normal 3.5-5.0 [facility] Comment on above: Performed By: #### G FR, CMP, CBC, LD, ADIFF, ANEU #### [address] [address] Sodium [Moles/Vol] 138 mmol/L Normal 136-145 [facility] Comment on above: Performed By: #### G FR, CMP, CBC, LD, ADIFF, ANEU #### [address] [address] Total Protein 6.8 G/dL Normal 5.7-8.2 [facility] Comment on above: Performed By: #### G FR, CMP, CBC, LD, ADIFF, ANEU #### [address] [address] Urea nitrogen [Mass/Vol] 9.0 mg/dL Normal 8.0-22.0 [facility] Comment on above: Performed By: #### G FR, CMP, CBC, LD, ADIFF, ANEU #### [address] [address] LABORATORYOrdered By: SYSTEM SYSTEM on 05-23-2024 Albumin BCP dye [Mass/Vol] 3.9 G/dL Normal 3.2 - 4.8 G/dL ADM SS Albumin/Globulin [Mass ratio] 1.3 {ratio} Normal 0.9 - 1.6 ratio AH ADM SS ALP [Catalytic activity/Vol] 92 U/L Normal 38 - 126 U/L ADM SS ALT No additional P-5'-P [Catalytic activity/Vol] 29 U/L Normal 10 - 49 U/L ADM SS AST [Catalytic activity/Vol] 31 U/L Normal 8 - 34 U/L ADM SS Basophils (Bld) [#/Vol] 0.1 103/mcL Normal 0.0 - 0.3 10^3/mcL Workflow SS Basophils/100 WBC (Bld) 1.0 % Normal 0.0 - 2.5 % Workflow SS Bilirubin [Mass/Vol] 0.70 mg/dL Normal 0.20 - 1.20 mg/dL ADM SS Comment on above: Interpretive Data: U se of this assay is not recommended for patients undergoing treatment with eltrombopag due to the potential for falsely elevated results. Calcium [Mass/Vol] 9.3 mg/dL Normal 8.7 - 10. 4 mg/dL ADM SS Chloride [Moles/Vol] 107 mmol/L Normal 98 - 11 0 mEq/L ADM SS CO2 [Moles/Vol] 28 mmol/L Normal 22 - 32 mEq/L ADM SS Creatinine [Mass/Vol] 0.79 mg/dL Normal 0.50 - 1.20 mg/dL ADM SS Comment on above: Interpretive Data: T esting performed on [employer] analyzer using enzymatic creatinine methodology. Electrolyte Balance 3.0 mEq/L Low 4.0 - 15 .0 mEq/L ADM SS Eosinophils (Bld) [#/Vol] 0.1 103/mcL Normal 0.0 - 0.7 10^3/mcL Workflow SS Eosinophils/100 WBC (Bld) 2.6 % Normal 0.0 - 6.0 % Workflow SS Erythrocyte distribution width (RBC) [Ratio] 13.3 % Normal 11.5 - 15.5 % Workflow SS Estimated Glomerular Filtration Rate 79 ml/min/1.73sqm Invalid Interpretation Code ADM SS Comment on above: Interpretive Data: Stages of Chronic Kidney Disease (CKD) Stage Description eGFR(ml/min/1.73 sq.m.) CKD 1 Normal kidney function or >=90 normal kindney function with possible kidney damage (ex. Proteinuria) CKD 2 Kidney damage with mild loss 60-89 of kidney function CKD 3a Mild to moderate loss of kidney 45-59 function CKD 3b Moderate to severe loss of 30-44 of kindey function CKD 4 Severe loss of kidney function 15-29 CKD 5 Kidney failure <15 Note: (go live 2024) the eGFR calculation was updated to the 2020 CKD-EPI creatinine equation without a race factor to calculate the eGFR results. Globulin 2.9 G/dL Normal 1.5 - 3.8 G/dL ADM SS Glucose [Mass/Vol] 116 mg/dL High 82 - 115 mg/dL ADM SS Hematocrit (Bld) [Volume fraction] 43.0 % Normal 34.0 - 46.0 % AH Workflow SS Hemoglobin (Bld) [Mass/Vol] 14.9 G/dL Normal 12.0 - 16.0 G/dL Workflow SS LDH Lactate to pyruvate reaction [Catalytic activity/Vol] 195 1 Normal 120 - 246 U/L ADM SS Lymphocytes (Bld) [#/Vol] 1.1 103/mcL Normal 0.9 - 4.3 10^3/mcL AH Workflow SS Lymphocytes/100 WBC (Bld) 21.0 % Normal 20.0 - 40.0 % Workflow SS MCH (RBC) [Entitic mass] 32.9 pg Normal 27.0 - 33.0 pg Workflow SS MCHC 34.7 G/dL Normal 32.0 - 36.0 G/dL Workflow SS MCV (RBC) [Entitic vol] 94.9 fL Normal 80.0 - 99.0 fL Workflow SS Monocytes (Bld) [#/Vol] 0.7 103/mcL Normal 0.1 - 1.4 10^3/mcL AH Workflow SS Monocytes/100 WBC (Bld) 13.6 % High 2.0 - 13.0 % Workflow SS Neutrophils (Bld) [#/Vol] 3.1 103/mcL Normal 2.3 - 8.1 10^3/mcL AH Workflow SS Neutrophils/100 WBC (Bld) 61.8 % Normal 50.0 - 75.0 % Workflow SS Platelet mean volume (Bld) [Entitic vol] 7.1 fL Normal 6.6 - 10.5 fL Workflow SS Platelets (Bld) [#/Vol] 197 103/mcL Normal 150 - 450 10^3/mcL AH Workflow SS Potassium [Moles/Vol] 3.9 mmol/L Normal 3.5 - 5.0 mEq/L ADM SS Protein [Mass/Vol] 6.8 G/dL Normal 5.7 - 8.2 G/dL ADM SS RBC (Bld) [#/Vol] 4.53 106/mcL Normal 4.10 - 5.3 0 10^6/mcL AH Workflow SS Sodium [Moles/Vol] 138 mmol/L Normal 136 - 145 mEq/L AH ADM SS Urea nitrogen [Mass/Vol] 9.0 mg/dL Normal 8.0 - 22.0 mg/dL AH ADM SS Urea nitrogen/Creatinine [Mass ratio] 11.4 ratio Normal 10.0 - 22.0 ratio AH ADM SS WBC (Bld) [#/Vol] 5.1 103/mcL Normal 4.5 - 10.8 10^3/mcL AH Workflow SS LDHon 05-23-2024 LDH 195 U/L Normal 120-246 [facility] Comment on above: Performed By: #### G FR, CMP, CBC, LD, ADIFF, ANEU #### [place] [address] MRI BRAIN W/ + W/O CONTRASTo n 05-14-2024 MRI BRAIN W/ + W/O CONTRAST ORIGINAL HISTORY: Glioblastoma, post therapy COMPARISON: 06 March 2024 TECHNIQUE: 1. Sagittal and axial T1-weighted images. 2. Axial FLAIR images. 3. Axial T2-weighted and T2*-weighted images. 4. Axial diffusion-weighted images with ADC map. 5. Axial, sagittal and coronal T1-weighted images following uncomplicated administration of intravenous gadolinium contrast. FINDINGS: There is a left craniotomy. There is an underlying 2 cm rim enhancing resection with mild associated blood products. There is an adjacent 11 mm enhancing lesion. There is an irregular subependymal lesion along the right callosum all rule. There are smaller adjacent lesions in the adjacent occipital cortex. There is diffuse T2 hyperintensity throughout the posterior parietal and medial occipital lobes, and this extends into the hippocampal tail. There is a cluster of subcentimeter T2 hyperintensities in the posterior left frontal white matter. Otherwise, the ventricles and sulci are within normal size limits. There is no abnormal restriction of diffusion. IMPRESSION: Interval decrease in size of resection cavity. Interval progression of disease, with increase in size of previously seen enhancing lesions, particularly along the roof of the corpus callosum, and with new punctate enhancing lesions in the right occipital lobe. There is an increase in size of the region of signal change in the right cerebral hemisphere is well. Interpreted by: Jose Bowman MD Preliminary Report By: Jose Bowman MD Electronically signed By Jose Bowman MD Dictated Date: 05/14/2024 3:58:07 PM Prelim Date: 05/14/2024 4:15:09 PM Sign Date: 05/14/2024 4:15:09 PM Ordering Provider: CLINTON GILBERT Normal [facility] Urine Cultureon 04-28-2024 [facility] Mixed Gram Positive Organisms [place] Count 11,000-25,000 MIX[facility] Mixed contaminants. Submit a new specimen if indicated. Normal [facility] Comment on above: Performed By: #### L 100.0100, L501.5200, L500.2500, L501.6710 #### [facility] [address] [place], [place], [address] Absolute neutrophil countOrd ered By: Will Lim on 04-26-2024 Neutrophils (Bld) [#/Vol] 3.6 10*3/uL 2.0-7.7 [facility] BUN/creatinine ratioOrdered By: Will Lim on 04-26-2024 Urea nitrogen/Creatinine [Mass ratio] 11.6 mg/mg 10-20 [facility] Basophil percentageOrdered B y: Will Lim on 04-26-2024 Basophils/100 WBC (Bld) 0.6 % 0-[address] [facility] Bilirubin, totalOrdered By: Will Lim on 04-26-2024 Bilirubin [Mass/Vol] 0.86 mg/dL 0.00-1.30 [facility] Brain/Head without Contrasto n 04-26-2024 Brain/Head without Contrast [facility] Imaging Services [address] [place], [place] [address] Brain/Head without Contrast MR#: [id number] Acct: [id number] Name: TERENCE VALDIVIA Rep #: [id number] : [id number] F [id number] From: Aamir frank MD PCP: Dr. Will Lim MD Status: REG CLI Study: Brain/Head without Contrast Date of Exam: 04/01 09/21 Exam# [id number] Ordering Dr: Will Lim MD EXAM: BRAIN/HEAD WITHOUT CONTRAST CLINICAL HISTORY: History of glioblastoma of the right parietal lobe. Recent resection. COMPARISON: Comparison is made with prior study dated January 25, 2024. TECHNIQUE: Multiple axial tomographic images were obtained without intravenous contrast administration. Coronal and sagittal reconstruction was obtained as well. FINDINGS: The patient is status post right posterior parietal occipital craniotomy. The previously seen mass lesion has been resected. There is evidence of encephalomalacia along the posterior aspect of the right parietal lobe in keeping with the prior surgical resection. No significant mass effect is seen. CT/Brain/Head without Contrast IMPRESSION: Status post right posterior parietal craniotomy with resection of the previously seen mass in the deep right posterior parietal lobe. The non was evidence of postoperative encephalomalacia. No evidence of mass lesion or mass effect. Reading Location: [id number] CC: Dr. Will Lim MD Reimbursement Liaison: Signed Normal [facility] CBC W/Diff, Automatedon 02-2 Absolute Lymph 0.63 X10 3/uL Low 0.83-4.51 [facility] Comment on above: Performed By: #### L 100.0100, L501.5200, L500.2500, L501.6710 #### [facility] [address] [place], [address] Absolute Neut 3.6 X10 3/uL Normal 2.0-7.7 [facility] Comment on above: Performed By: #### L 100.0100, L501.5200, L500.2500, L501.6710 #### [facility] [address] [place], [address] Basophils/100 WBC (Bld) 0.6 % Normal 0-[address] [facility] Comment on above: Performed By: #### L 100.0100, L501.5200, L500.2500, L501.6710 #### [facility] [address] [place], [address] Eosinophils/100 WBC (Bld) 2.8 % Normal 0-5 [facility] Comment on above: Performed By: #### L 100.0100, L501.5200, L500.2500, L501.6710 #### [facility] [address] [place], [address] Erythrocyte distribution width (RBC) [Ratio] 12.9 % Normal 11.6-14.6 [facility] Comment on above: Performed By: #### L 100.0100, L501.5200, L500.2500, L501.6710 #### [facility] [address] [place], [address] Hematocrit (Bld) [Volume fraction] 44.4 % Normal 37-47 [facility] Comment on above: Performed By: #### L 100.0100, L501.5200, L500.2500, L501.6710 #### [facility] [address] [place], [address] Hemoglobin (Bld) [Mass/Vol] 15.3 g/dL High 12.0-15.0 [facility] Comment on above: Performed By: #### L 100.0100, L501.5200, L500.2500, L501.6710 #### [facility] [address] [place], [address] IG% 0.200 Normal 0.0-0.9 [facility] Comment on above: Result Comment: IG% - Immature Granulocytes (promyelocytes, myelocytes and metamyelocytes) > 1% indicates that a LEFT SHIFT is Present. Performed By: #### L 100.0100, L501.5200, L500.2500, L501.6710 #### [facility] [address] [place], [address] Lymphocytes/100 WBC (Bld) 12.8 % Low 19-41 [facility] Comment on above: Performed By: #### L 100.0100, L501.5200, L500.2500, L501.6710 #### [facility] [address] [place], [address] MCH (RBC) [Entitic mass] 32.7 pg High 27.0-32.0 [facility] Comment on above: Performed By: #### L 100.0100, L501.5200, L500.2500, L501.6710 #### [facility] [address] [place], [address] MCHC (RBC) [Mass/Vol] 34.5 g/dL Normal 32-36 [facility] Comment on above: Performed By: #### L 100.0100, L501.5200, L500.2500, L501.6710 #### [facility] [address] [place], [address] MCV (RBC) [Entitic vol] 94.9 fL Normal 81-99 [facility] Comment on above: Performed By: #### L 100.0100, L501.5200, L500.2500, L501.6710 #### [facility] [address] [place], [address] Monocytes/100 WBC (Bld) 10.5 % High 0-10 [facility] Comment on above: Performed By: #### L 100.0100, L501.5200, L500.2500, L501.6710 #### [facility] [address] [place], [address] Neutrophils/100 WBC (Bld) 73.1 % High 47-70 [facility] Comment on above: Performed By: #### L 100.0100, L501.5200, L500.2500, L501.6710 #### [facility] [address] [place], [address] Nucleated RBC (Bld) [#/Vol] 0 10*3/uL Normal 0-5 [facility] Comment on above: Performed By: #### L 100.0100, L501.5200, L500.2500, L501.6710 #### [facility] [address] [place], [address] Platelet mean volume (Bld) [Entitic vol] 8.6 fL Normal 6.2-12.0 [facility] Comment on above: Performed By: #### L 100.0100, L501.5200, L500.2500, L501.6710 #### [facility] [address] [place], [address] Platelets (Bld) [#/Vol] 235 10*3/uL Normal 150-450 [facility] Comment on above: Performed By: #### L 100.0100, L501.5200, L500.2500, L501.6710 #### [facility] [address] [place], [address] RBC (Bld) [#/Vol] 4.68 10*6/uL Normal 4.2-5.4 [facility] Comment on above: Performed By: #### L 100.0100, L501.5200, L500.2500, L501.6710 #### [facility] [address] [place], [address] RDW SD 44.6 fl High 35.1-43.9 [facility] Comment on above: Performed By: #### L 100.0100, L501.5200, L500.2500, L501.6710 #### [facility] [address] [place], [address] WBC (Bld) [#/Vol] 4.9 10*3/uL Normal 4.4-11.[address] [facility] Comment on above: Performed By: #### L 100.0100, L501.5200, L500.2500, L501.6710 #### [facility] [address] [place], [address] Carbon dioxide measurementOr dered By: Will Lim on 04-26-2024 CO2 [Moles/Vol] 24.2 mmol/L 22.0-29.0 [facility] Chloride measurementOrdered By: Will Lim on 04-26-2024 Chloride [Moles/Vol] 103 mmol/L 96-108 [facility] Comprehensive Metabolic Prof ilon 04-26-2024 Albumin [Mass/Vol] 4.4 g/dL Normal 3.4-4.[address] [facility] Comment on above: Performed By: #### L 100.0100, L501.5200, L500.2500, L501.6710 #### [facility] [address] [place], [address] Albumin/Globulin [Mass ratio] 1.3 {ratio} Normal 0.9-2.4 [facility] Comment on above: Performed By: #### L 100.0100, L501.5200, L500.2500, L501.6710 #### [facility] [address] [place], [address] ALK PHOS 108 U/L High 35-104 [facility] Comment on above: Performed By: #### L 100.0100, L501.5200, L500.2500, L501.6710 #### [facility] [address] [place], [address] ALT [Catalytic activity/Vol] 34 U/L Normal <=34 [facility] Comment on above: Performed By: #### L 100.0100, L501.5200, L500.2500, L501.6710 #### [facility] [address] [place], [address] Anion gap [Moles/Vol] 13 mmol/L Normal 5-15 [facility] Comment on above: Performed By: #### L 100.0100, L501.5200, L500.2500, L501.6710 #### [facility] [address] [place], [address] AST [Catalytic activity/Vol] 39 U/L High <=31 [facility] Comment on above: Result Comment: Hemo lysis present, Results??could be affected. ?? Performed By: #### L 100.0100, L501.5200, L500.2500, L501.6710 #### [facility] [address] [place], [address] Bilirubin [Mass/Vol] 0.86 mg/dL Normal 0.00-1.30 [facility] Comment on above: Performed By: #### L 100.0100, L501.5200, L500.2500, L501.6710 #### [facility] [address] [place], [address] BUN/CRE 11.6 RATIO Normal 10-20 [facility] Comment on above: Performed By: #### L 100.0100, L501.5200, L500.2500, L501.6710 #### [facility] [address] [place], [address] Calcium [Mass/Vol] 10.3 mg/dL Normal 7.6-11.[address] [facility] Comment on above: Performed By: #### L 100.0100, L501.5200, L500.2500, L501.6710 #### [facility] [address] [place], [address] Chloride [Moles/Vol] 103 mmol/L Normal 96-108 [facility] Comment on above: Performed By: #### L 100.0100, L501.5200, L500.2500, L501.6710 #### [facility] [address] [place], [address] CO2 [Moles/Vol] 24.2 mmol/L Normal 22.0-29.0 [facility] Comment on above: Performed By: #### L 100.0100, L501.5200, L500.2500, L501.6710 #### [facility] [address] [place], [address] Creatinine [Mass/Vol] 1.0 mg/dL Normal 0.6-1.0 [facility] Comment on above: Performed By: #### L 100.0100, L501.5200, L500.2500, L501.6710 #### [facility] [address] [place], [address] GFR/1.73 sq M.predicted among non-blacks MDRD (S/P/Bld) [Vol rate/Area] 61 mL/min/{1.73_m2} Normal >60 [facility] Comment on above: Result Comment: mL/m in/1.73m2 CKD-EPI Creatinine Equation (2020) Performed By: #### L 100.0100, L501.5200, L500.2500, L501.6710 #### [facility] [address] [place], [address] Globulin (S) [Mass/Vol] 3.3 g/dL Normal 2.2-4.2 [facility] Comment on above: Performed By: #### L 100.0100, L501.5200, L500.2500, L501.6710 #### [facility] [address] [place], [address] Glucose [Mass/Vol] 143 mg/dL High 70-[address] [facility] Comment on above: Performed By: #### L 100.0100, L501.5200, L500.2500, L501.6710 #### [facility] [address] [place], [address] Potassium [Moles/Vol] 3.9 mmol/L Normal 3.3-5.1 [facility] Comment on above: Result Comment: Hemo lysis present, Results??could be affected. ?? Performed By: #### L 100.0100, L501.5200, L500.2500, L501.6710 #### [facility] [address] [place], [address] Sodium [Moles/Vol] 140 mmol/L Normal 133-[address] [facility] Comment on above: Performed By: #### L 100.0100, L501.5200, L500.2500, L501.6710 #### [facility] [address] [place], [address] T PROT 7.8 g/dL Normal 5.9-8.4 [facility] Comment on above: Performed By: #### L 100.0100, L501.5200, L500.2500, L501.6710 #### [facility] [address] [place], [address] Urea nitrogen [Mass/Vol] 11 mg/dL Normal 4-19 [facility] Comment on above: Performed By: #### L 100.0100, L501.5200, L500.2500, L501.6710 #### [facility] [address] [place], [address] Creatinine [Moles/Vol]Ordere d By: Will Lim on 04-26-2024 Creatinine [Mass/Vol] 1.0 mg/dL 0.6-1.0 [facility] Eosinophil percentageOrdered By: Will Lim 04-26-2024 Eosinophils/100 WBC (Bld) 2.8 % 0-5 [facility] Erythrocyte distribution wid th ratioOrdered By: Will Lim 04-26-2024 Erythrocyte distribution width (RBC) [Ratio] 12.9 % 11.6-14.6 [facility] Erythrocyte distribution wid th standard deviationOrdered By: Will Lim 04-26-2024 Erythrocyte distribution width (RBC) [Entitic vol] 44.6 fL High 35.1-43.9 [facility] GFR/1.73 sq M.predicted brianna g non-blacks MDRD (S/P/Bld) [Vol rate/Area]Ordered By: Will Lim on 02-27-2025 Estimated GFR (MDRD) Non-Af Amer 61 >60 [facility] Comment on above: mL/min/1.73m2 CKD-EP I Creatinine Equation (2020) Hematocrit Auto (Bld) [Volum e fraction]Ordered By: Will Lim on 04-26-2024 Hematocrit (Bld) [Volume fraction] 44.4 % 37-47 [facility] Hemoglobin measurementOrdere d By: Will Lim 04-26-2024 Hemoglobin (Bld) [Mass/Vol] 15.3 g/dL High 12.0-15.0 [facility] Immature granulocytes/100 WB C Auto (Bld)Ordered By: Will Lim 04-26-2024 Immature granulocytes/100 WBC (Bld) 0.200 % 0.0-0.9 [facility] Comment on above: IG% - Immature Granu locytes (promyelocytes, myelocytes and metamyelocytes) > 1% indicates that a LEFT SHIFT is Present. Laboratory - Chemistry and C hemistry - challengeOrdered By: Will Lim 04-26-2024 AST [Catalytic activity/Vol] 39 U/L High <32 [facility] Comment on above: Hemolysis present, R esults could be affected. Lymphocytes Auto (Unsp spec) [#/Vol]Ordered By: Will Lim 04-26-2024 Lymphocytes (Bld) [#/Vol] 0.63 10*3/uL Low 0.83-4.51 [facility] Lymphocytes/100 WBC Auto (Un sp spec)Ordered By: Will Lim 04-26-2024 Lymphocytes/100 WBC (Bld) 12.8 % Low 19-41 [facility] MCV (mean corpuscular volume ) determinationOrdered By: Will Lim 04-26-2024 MCV (RBC) [Entitic vol] 94.9 fL 81-[address] [facility] Mean corpuscular hemoglobin (MCH) determinationOrdered By: Will Lim 04-26-2024 MCH (RBC) [Entitic mass] 32.7 pg High 27.0-32.0 [facility] Mean corpuscular hemoglobin concentration (MCHC) determinationOrdered By: Will Lim 04-26-2024 MCHC (RBC) [Mass/Vol] 34.5 g/dL 32-36 [facility] Mean platelet volume determi nationOrdered By: Will Lim on 04-26-2024 Platelet mean volume (Bld) [Entitic vol] 8.6 fL 6.2-12.0 [facility] Monocyte percentageOrdered B y: Will Lim on 04-26-2024 Monocytes/100 WBC (Bld) 10.5 % High 0-[address] [facility] Neutrophil percentageOrdered By: Will Lim on 04-26-2024 Neutrophils/100 WBC (Bld) 73.1 % High 47-70 [facility] Nucleated red blood cell per centageOrdered By: Will Lim on 04-26-2024 Nucleated RBC/100 WBC (Bld) [Ratio] 0 % 0-5 [facility] Platelet countOrdered By: Toni Lim on 04-26-2024 Platelets (Bld) [#/Vol] 235 10*3/uL 150-450 [facility] RBC Auto (Bld) [#/Vol]Ordere d By: Will Lim on 04-26-2024 RBC (Bld) [#/Vol] 4.68 10*6/uL 4.2-5.4 [facility] Serum globulin measurementOr dered By: Will Lim 04-26-2024 Globulin (S) [Mass/Vol] 3.3 g/dL 2.2-4.[address] [facility] Serum glucose measurement (m ass/volume)Ordered By: Will Lim 04-26-2024 Glucose [Mass/Vol] 143 mg/dL High 70-[address] [facility] Serum or plasma alanine mayes otransferase (ALT) measurementOrdered By: Will Lim 04-26-2024 ALT [Catalytic activity/Vol] 34 U/L <35 [facility] Serum or plasma albumin olive urement (mass/volume)Ordered By: Will Lim 04-26-2024 Albumin [Mass/Vol] 4.4 g/dL 3.4-4.[address] [facility] Serum or plasma albumin/glob ulin mass ratioOrdered By: Will Lim 04-26-2024 Albumin/Globulin [Mass ratio] 1.3 {ratio} 0.9-2.4 [facility] Serum or plasma alkaline janis sphatase measurementOrdered By: Will Lim on 04-26-2024 ALP [Catalytic activity/Vol] 108 U/L High 35-104 [facility] Serum or plasma anion gap de termination (moles/volume)Ordered By: Will Lim on 04-26-2024 Anion gap [Moles/Vol] 13 mmol/L 5-15 [facility] Serum or plasma calcium olive urement (mass/volume)Ordered By: Will Lim on 04-26-2024 Calcium [Mass/Vol] 10.3 mg/dL 7.6-11.[address] [facility] Serum or plasma potassium me asurementOrdered By: Will Lim on 04-26-2024 Potassium [Moles/Vol] 3.9 mmol/L 3.3-5.1 [facility] Comment on above: Hemolysis present, R esults could be affected. Serum or plasma sodium measu rement (moles/volume)Ordered By: Will Lim on 04-26-2024 Sodium [Moles/Vol] 140 mmol/L 133-[address] [facility] Serum or plasma urea nitroge n measurement (mass/volume)Ordered By: Will Lim on 04-26-2024 Urea nitrogen [Mass/Vol] 11 mg/dL 4-19 [facility] Total proteinOrdered By: Will Lim 04-26-2024 Protein [Mass/Vol] 7.8 g/dL 5.9-8.[address] [facility] Urine cultureOrdered By: Will Lim on 04-26-2024 Bacteria identified Cx Nom (U) Positive Abnormal [facility] White blood cell (WBC) count Ordered By: Will Lim on 04-26-2024 WBC (Bld) [#/Vol] 4.9 10*3/uL 4.4-11.[address] [facility] Absolute neutrophil countOrd ered By: Will Lim on 04-19-2024 Neutrophils (Bld) [#/Vol] 2.9 10*3/uL 2.0-7.7 [facility] Albumin to globulin ratioOrd ered By: Will Lim on 04-19-2024 Albumin/Globulin [Mass ratio] 0.9 {ratio} 0.9-2.4 [facility] Basophil percentageOrdered B y: Will Lim on 04-19-2024 Basophils/100 WBC (Bld) 0.9 % 0-[address] [facility] Bilirubin, totalOrdered By: Will Lim on 04-19-2024 Bilirubin [Mass/Vol] 0.80 mg/dL 0.20-1.00 [facility] Comment on above: For patients on eltr ombopag therapy, use of Dimension Colman TBIL is not recommended. Blood urea nitrogen (BUN)/cr eatinine ratioOrdered By: Will Lim on 04-19-2024 Urea nitrogen/Creatinine [Mass ratio] 16.3 mg/mg 12-17 [facility] CBC W/Diff, Automatedon 04-01 Absolute Lymph 0.73 X10 3/uL Low 0.83-4.51 [facility] Comment on above: Performed By: #### L 501.3620, L500.2500, L100.0100, L3600.5100, L501.4020 #### [facility] [address] [place], [address] Absolute Neut 2.9 X10 3/uL Normal 2.0-7.7 [facility] Comment on above: Performed By: #### L 501.3620, L500.2500, L100.0100, L3600.5100, L501.4020 #### [facility] [address] [place], [address] Basophils/100 WBC (Bld) 0.9 % Normal 0-[address] [facility] Comment on above: Performed By: #### L 501.3620, L500.2500, L100.0100, L3600.5100, L501.4020 #### [facility] [address] [place], [address] Eosinophils/100 WBC (Bld) 3.2 % Normal 0-5 [facility] Comment on above: Performed By: #### L 501.3620, L500.2500, L100.0100, L3600.5100, L501.4020 #### [facility] [address] [place], [address] Erythrocyte distribution width (RBC) [Ratio] 13.1 % Normal 11.6-14.6 [facility] Comment on above: Performed By: #### L 501.3620, L500.2500, L100.0100, L3600.5100, L501.4020 #### [facility] [address] [place], [address] Hematocrit (Bld) [Volume fraction] 40.1 % Normal 37-47 [facility] Comment on above: Performed By: #### L 501.3620, L500.2500, L100.0100, L3600.5100, L501.4020 #### [facility] [address] [place], [address] Hemoglobin (Bld) [Mass/Vol] 13.8 g/dL Normal 12.0-15.0 [facility] Comment on above: Performed By: #### L 501.3620, L500.2500, L100.0100, L3600.5100, L501.4020 #### [facility] [address] [place], [address] IG% 0.200 Normal 0.0-0.9 [facility] Comment on above: Result Comment: IG% - Immature Granulocytes (promyelocytes, myelocytes and metamyelocytes) > 1% indicates that a LEFT SHIFT is Present. Performed By: #### L 501.3620, L500.2500, L100.0100, L3600.5100, L501.4020 #### [facility] [address] [place], [address] Lymphocytes/100 WBC (Bld) 16.5 % Low 19-41 [facility] Comment on above: Performed By: #### L 501.3620, L500.2500, L100.0100, L3600.5100, L501.4020 #### [facility] [address] [place], [address] MCH (RBC) [Entitic mass] 32.5 pg High 27.0-32.0 [facility] Comment on above: Performed By: #### L 501.3620, L500.2500, L100.0100, L3600.5100, L501.4020 #### [facility] [address] [place], [address] MCHC (RBC) [Mass/Vol] 34.4 g/dL Normal 32-36 [facility] Comment on above: Performed By: #### L 501.3620, L500.2500, L100.0100, L3600.5100, L501.4020 #### [facility] [address] [place], [address] MCV (RBC) [Entitic vol] 94.4 fL Normal 81-99 [facility] Comment on above: Performed By: #### L 501.3620, L500.2500, L100.0100, L3600.5100, L501.4020 #### [facility] [address] [place], [address] Monocytes/100 WBC (Bld) 13.3 % High 0-10 [facility] Comment on above: Performed By: #### L 501.3620, L500.2500, L100.0100, L3600.5100, L501.4020 #### [facility] [address] [place], [address] Neutrophils/100 WBC (Bld) 65.9 % Normal 47-70 [facility] Comment on above: Performed By: #### L 501.3620, L500.2500, L100.0100, L3600.5100, L501.4020 #### [facility] [address] [place], [address] Nucleated RBC (Bld) [#/Vol] 0 10*3/uL Normal 0-5 [facility] Comment on above: Performed By: #### L 501.3620, L500.2500, L100.0100, L3600.5100, L501.4020 #### [facility] [address] [place], [address] Platelet mean volume (Bld) [Entitic vol] 9.3 fL Normal 6.2-12.0 [facility] Comment on above: Performed By: #### L 501.3620, L500.2500, L100.0100, L3600.5100, L501.4020 #### [facility] [address] [place], [address] Platelets (Bld) [#/Vol] 242 10*3/uL Normal 150-450 [facility] Comment on above: Performed By: #### L 501.3620, L500.2500, L100.0100, L3600.5100, L501.4020 #### [facility] [address] [place], [address] RBC (Bld) [#/Vol] 4.25 10*6/uL Normal 4.2-5.4 [facility] Comment on above: Performed By: #### L 501.3620, L500.2500, L100.0100, L3600.5100, L501.4020 #### [facility] [address] [place], [address] RDW SD 44.8 fl High 35.1-43.9 [facility] Comment on above: Performed By: #### L 501.3620, L500.2500, L100.0100, L3600.5100, L501.4020 #### [facility] [address] [place], [address] WBC (Bld) [#/Vol] 4.4 10*3/uL Normal 4.4-11.[address] [facility] Comment on above: Performed By: #### L 501.3620, L500.2500, L100.0100, L3600.5100, L501.4020 #### [facility] [address] [place], [address] Carbon dioxide measurementOr dered By: Will Lim on 04-19-2024 CO2 [Moles/Vol] 27.0 mmol/L 21.0-32.0 [facility] Chloride measurementOrdered By: Will Lim on 04-19-2024 Chloride [Moles/Vol] 105 mmol/L 98-107 [facility] Comprehensive Metabolic Prof ilon 04-19-2024 Albumin [Mass/Vol] 3.5 g/dL Normal 3.2-5.[address] [facility] Comment on above: Performed By: #### L 501.3620, L500.2500, L100.0100, L3600.5100, L501.4020 #### [facility] [address] [place], [address] Albumin/Globulin [Mass ratio] 0.9 {ratio} Normal 0.9-2.4 [facility] Comment on above: Performed By: #### L 501.3620, L500.2500, L100.0100, L3600.5100, L501.4020 #### [facility] [address] [place], [address] ALK P 101 U/L Normal 45-117 [facility] Comment on above: Performed By: #### L 501.3620, L500.2500, L100.0100, L3600.5100, L501.4020 #### [facility] [address] [place], [address] ALT [Catalytic activity/Vol] 32 U/L Normal 13-56 [facility] Comment on above: Performed By: #### L 501.3620, L500.2500, L100.0100, L3600.5100, L501.4020 #### [facility] [address] [place], [address] AST [Catalytic activity/Vol] 22 U/L Normal 15-37 [facility] Comment on above: Performed By: #### L 501.3620, L500.2500, L100.0100, L3600.5100, L501.4020 #### [facility] [address] [place], [address] Bilirubin [Mass/Vol] 0.80 mg/dL Normal 0.20-1.00 [facility] Comment on above: Result Comment: For patients on eltrombopag therapy, use of Dimension Colman TBIL is not recommended. Performed By: #### L 501.3620, L500.2500, L100.0100, L3600.5100, L501.4020 #### [facility] [address] [place], [address] BUN/CRE 16.3 RATIO Normal 10-20 [facility] Comment on above: Performed By: #### L 501.3620, L500.2500, L100.0100, L3600.5100, L501.4020 #### [facility] [address] [place], [address] CA,Total 9.3 mg/dL Normal 8.5-10.1 [facility] Comment on above: Performed By: #### L 501.3620, L500.2500, L100.0100, L3600.5100, L501.4020 #### [facility] [address] [place], [address] Chloride [Moles/Vol] 105 mmol/L Normal 98-107 [facility] Comment on above: Performed By: #### L 501.3620, L500.2500, L100.0100, L3600.5100, L501.4020 #### [facility] [address] [place], [address] CO2 [Moles/Vol] 27.0 mmol/L Normal 21.0-32.0 [facility] Comment on above: Performed By: #### L 501.3620, L500.2500, L100.0100, L3600.5100, L501.4020 #### [facility] [address] [place], [address] Creatinine [Mass/Vol] 0.86 mg/dL Normal 0.55-1.02 [facility] Comment on above: Result Comment: The validity of the calculated GFR GFRAA in patients over 70 years has not been determined. Clinical correlation is essential. Performed By: #### L 501.3620, L500.2500, L100.0100, L3600.5100, L501.4020 #### [facility] [address] [place], [address] EST GFR - AA 83 mL/min Normal >60 [facility] Comment on above: Result Comment: Afri can Bangladeshi GFR Calc Performed By: #### L 501.3620, L500.2500, L100.0100, L3600.5100, L501.4020 #### [facility] [address] [place], [address] GAP 6 Normal 5-15 [facility] Comment on above: Performed By: #### L 501.3620, L500.2500, L100.0100, L3600.5100, L501.4020 #### [facility] [address] [place], [address] GFR/1.73 sq M.predicted among non-blacks MDRD (S/P/Bld) [Vol rate/Area] 69 mL/min/{1.73_m2} Normal >60 [facility] Comment on above: Result Comment: Non- GFR Calc Performed By: #### L 501.3620, L500.2500, L100.0100, L3600.5100, L501.4020 #### [facility] [address] [place], [address] Globulin (S) [Mass/Vol] 3.7 g/dL Normal 2.2-4.2 [facility] Comment on above: Performed By: #### L 501.3620, L500.2500, L100.0100, L3600.5100, L501.4020 #### [facility] [address] [place], [address] Glucose [Mass/Vol] 82 mg/dL Normal 74-[address] [facility] Comment on above: Performed By: #### L 501.3620, L500.2500, L100.0100, L3600.5100, L501.4020 #### [facility] [address] [place], [address] Potassium [Moles/Vol] 3.8 mmol/L Normal 3.5-5.1 [facility] Comment on above: Performed By: #### L 501.3620, L500.2500, L100.0100, L3600.5100, L501.4020 #### [facility] [address] [place], [address] Sodium [Moles/Vol] 138 mmol/L Normal 136-[address] [facility] Comment on above: Performed By: #### L 501.3620, L500.2500, L100.0100, L3600.5100, L501.4020 #### [facility] [address] [place], [address] T PROT 7.2 g/dL Normal 6.4-8.2 [facility] Comment on above: Performed By: #### L 501.3620, L500.2500, L100.0100, L3600.5100, L501.4020 #### [facility] [address] [place], [address] Urea nitrogen [Mass/Vol] 14 mg/dL Normal 7-18 [facility] Comment on above: Performed By: #### L 501.3620, L500.2500, L100.0100, L3600.5100, L501.4020 #### [facility] [address] [place], [address] Eosinophil percentageOrdered By: Will Lim on 04-19-2024 Eosinophils/100 WBC (Bld) 3.2 % 0-5 [facility] Erythrocyte distribution wid th ratioOrdered By: Will Lim on 04-19-2024 Erythrocyte distribution width (RBC) [Ratio] 13.1 % 11.6-14.6 [facility] Erythrocyte distribution wid th standard deviationOrdered By: [facility] on 04-19-2024 Erythrocyte distribution width (RBC) [Entitic vol] 44.8 fL High 35.1-43.9 [facility] Estimated glomerular filtrat ion rate (GFR) AmericanOrdered By: Will Lim on 04-19-2024 Estimated GFR (MDRD) Amer 83 mL/min >60 [facility] Comment on above: GFR Calc Glomerular filtration rate ( GFR) estimationOrdered By: Will Lim on 04-19-2024 Estimated GFR (MDRD) Non-Af Amer 69 mL/min >60 [facility] Comment on above: Non- GFR Calc Glucose measurementOrdered B y: Will Lim on 04-19-2024 Glucose [Mass/Vol] 82 mg/dL 74-[address] [facility] Hematocrit Auto (Bld) [Volum e fraction]Ordered By: Will Lim on 04-19-2024 Hematocrit (Bld) [Volume fraction] 40.1 % 37-47 [facility] Hemoglobin A1con 04-19-2024 HbA1c (Bld) [Mass fraction] 6.4 % High 3.8-5.6 [facility] Comment on above: Result Comment: Norm al < 5.7 % Prediabetic 5.7 - 6.4 % Diabetic >or= 6.5 % Please note range changes. Performed By: #### L 501.3620, L500.2500, L100.0100, L3600.5100, L501.4020 #### [facility] [address] [place], [address] Hemoglobin A1c percentageOrd ered By: Will Lim on 04-19-2024 HbA1c (Bld) [Mass fraction] 6.4 % High 3.8-5.6 [facility] Comment on above: Normal < 5.7 % Predi abetic 5.7 - 6.4 % Diabetic >or= 6.5 % Please note range changes. Hemoglobin measurementOrdere d By: Will Lim on 04-19-2024 Hemoglobin (Bld) [Mass/Vol] 13.8 g/dL 12.0-15.0 [facility] High density lipoprotein (HD L) measurementOrdered By: Will Lim on 04-19-2024 Cholesterol in HDL [Mass/Vol] 57 mg/dL >40 [facility] Comment on above: The drugs N-Acetylcy steine and Metamizole may falsely depress this assay. Reference Range HDL <40 mg/dL Low HDL Cholesterol HDL >or= 60 mg/dL High HDL Cholesterol Immature granulocytes/100 WB C Auto (Bld)Ordered By: Will Lim on 04-19-2024 Immature granulocytes/100 WBC (Bld) 0.200 % 0.0-0.9 [facility] Comment on above: IG% - Immature Granu locytes (promyelocytes, myelocytes and metamyelocytes) > 1% indicates that a LEFT SHIFT is Present. Laboratory - Chemistry and C hemistry - challengeOrdered By: Will Lim on 04-19-2024 AST [Catalytic activity/Vol] 22 U/L 15-37 [facility] Lipid Profileon 04-19-2024 Cholesterol [Mass/Vol] 162 mg/dL Normal 200 [facility] Comment on above: Result Comment: <200 mg/dL Desirable 200-240 mg/dL Borderline >240 mg/dL High Risk Performed By: #### L 501.3620, L500.2500, L100.0100, L3600.5100, L501.4020 #### [facility] [address] [place], [place], [address] Cholesterol in HDL [Mass/Vol] 57 mg/dL Normal [facility] Comment on above: Result Comment: The drugs N-Acetylcysteine and Metamizole may falsely depress this assay. Reference Range HDL <40 mg/dL Low HDL Cholesterol HDL >or= 60 mg/dL High HDL Cholesterol Performed By: #### L 501.3620, L500.2500, L100.0100, L3600.5100, L501.4020 #### [facility] [address] [place], [address] Cholesterol in LDL [Mass/Vol] 89 mg/dL Normal 0-130 [facility] Comment on above: Performed By: #### L 501.3620, L500.2500, L100.0100, L3600.5100, L501.4020 #### [facility] [address] [place], [address] Cholesterol in VLDL [Mass/Vol] 16 mg/dL Normal 5-40 [facility] Comment on above: Performed By: #### L 501.3620, L500.2500, L100.0100, L3600.5100, L501.4020 #### [facility] [address] [place], [address] Triglyceride [Mass/Vol] 78 mg/dL Normal [facility] Comment on above: Result Comment: The drugs N-Acetylcysteine and Metamizole may falsely depress this assay. Serum Triglycerides Reference Interval Normal <150 mg/dL Borderline high 150 - 199 mg/dL High 200 - 499 mg/dL Very High > or = 500 mg/dL Performed By: #### L 501.3620, L500.2500, L100.0100, L3600.5100, L501.4020 #### [facility] [address] [place], [address] Low density lipoprotein (LDL ) cholesterol measurementOrdered By: Will Lim on 04-19-2024 Cholesterol in LDL [Mass/Vol] 89 mg/dL 0-130 [facility] Lymphocytes Auto (Unsp spec) [#/Vol]Ordered By: Will Lim on 04-19-2024 Lymphocytes (Bld) [#/Vol] 0.73 10*3/uL Low 0.83-4.51 [facility] Lymphocytes/100 WBC Auto (Un sp spec)Ordered By: Will Lim on 04-19-2024 Lymphocytes/100 WBC (Bld) 16.5 % Low 19-41 [facility] MCV (mean corpuscular volume ) determinationOrdered By: Will Lim on 04-19-2024 MCV (RBC) [Entitic vol] 94.4 fL 81-[address] [facility] Mean corpuscular hemoglobin (MCH) determinationOrdered By: Will Lim on 04-19-2024 MCH (RBC) [Entitic mass] 32.5 pg High 27.0-32.0 [facility] Mean corpuscular hemoglobin concentration (MCHC) determinationOrdered By: Will Lim on 04-19-2024 MCHC (RBC) [Mass/Vol] 34.4 g/dL 32-36 [facility] Mean platelet volume determi nationOrdered By: Will Lim on 04-19-2024 Platelet mean volume (Bld) [Entitic vol] 9.3 fL 6.2-12.0 [facility] Monocyte percentageOrdered B y: Will Lim on 04-19-2024 Monocytes/100 WBC (Bld) 13.3 % High 0-[address] [facility] Neutrophil percentageOrdered By: Will Lim on 04-19-2024 Neutrophils/100 WBC (Bld) 65.9 % 47-70 [facility] Nucleated red blood cell per centageOrdered By: Will Lim on 04-19-2024 Nucleated RBC/100 WBC (Bld) [Ratio] 0 % 0-5 [facility] Platelet countOrdered By: Toni Lim on 04-19-2024 Platelets (Bld) [#/Vol] 242 10*3/uL 150-450 [facility] Potassium measurementOrdered By: Will Lim on 04-19-2024 Potassium [Moles/Vol] 3.8 mmol/L 3.5-5.1 [facility] RBC Auto (Bld) [#/Vol]Ordere d By: Will Lim on 04-19-2024 RBC (Bld) [#/Vol] 4.25 10*6/uL 4.2-5.4 [facility] Serum anion gap measurementO rdered By: Will Lim on 04-19-2024 Anion gap [Moles/Vol] 6 mmol/L 5-15 [facility] Serum globulin measurementOr dered By: Will Lim on 04-19-2024 Globulin (S) [Mass/Vol] 3.7 g/dL 2.2-4.2 [facility] Serum or plasma alanine mayes otransferase (ALT) measurementOrdered By: Will Lim on 04-19-2024 ALT [Catalytic activity/Vol] 32 U/L 13-56 [facility] Serum or plasma albumin olive urement (mass/volume)Ordered By: Will Lim 04-19-2024 Albumin [Mass/Vol] 3.5 g/dL 3.2-5.[address] [facility] Serum or plasma alkaline janis sphatase measurementOrdered By: Will Lim 04-19-2024 ALP [Catalytic activity/Vol] 101 U/L 45-117 [facility] Serum or plasma calcium olive urement (mass/volume)Ordered By: Will Lim 04-19-2024 Calcium [Mass/Vol] 9.3 mg/dL 8.5-10.[address] [facility] Serum or plasma cholesterol measurement (mass/volume)Ordered By: Will Lim 04-19-2024 Cholesterol [Mass/Vol] 162 mg/dL <200 [facility] Comment on above: <200 mg/dL Desirable 200-240 mg/dL Borderline >240 mg/dL High Risk Serum or plasma creatinine m easurement (mass/volume)Ordered By: Will Lim 04-19-2024 Creatinine [Mass/Vol] 0.86 mg/dL 0.55-1.02 [facility] Comment on above: The validity of the calculated GFR & GFRAA in patients over 70 years has not been determined. Clinical correlation is essential. Serum or plasma urea nitroge n measurement (mass/volume)Ordered By: Will Lim 04-19-2024 Urea nitrogen [Mass/Vol] 14 mg/dL 7-18 [facility] Sodium levelOrdered By: Will Lim 04-19-2024 Sodium [Moles/Vol] 138 mmol/L 136-[address] [facility] TSH QnOrdered By: Will Lim o n 04-19-2024 Thyroid Stimulating Hormone (TSH) 0.399 uIU/mL 0.358-3.740 [facility] Thyroid Stim Hormone (TSH)on 04-19-2024 TSH 0.399 uIU/mL Normal 0.358-3.740 [facility] Comment on above: Performed By: #### L 501.3620, L500.2500, L100.0100, L3600.5100, L501.4020 #### [facility] [address] [place], [place], [id number] Total proteinOrdered By: Will Lim on 04-19-2024 Protein [Mass/Vol] 7.2 g/dL 6.4-8.[address] [facility] Triglycerides measurementOrd ered By: Will Lim on 04-19-2024 Triglyceride [Mass/Vol] 78 mg/dL <[address] [facility] Comment on above: The drugs N-Acetylcy steine and Metamizole may falsely depress this assay.Serum Triglycerides Reference Interval Normal <150 mg/dL Borderline high 150 - 199 mg/dL High 200 - 499 mg/dL Very High > or = 500 mg/dL Very low density lipoprotein (VLDL) cholesterol measurementOrdered By: Will Lim on 04-19-2024 VLDL Cholesterol 16 mg/dL 5-40 [facility] White blood cell (WBC) count Ordered By: Will Lim on 04-19-2024 WBC (Bld) [#/Vol] 4.4 10*3/uL 4.4-11.[address] [facility] Basic Metabolic Profile (BMP )on 04-16-2024 BUN/CRE 18.5 RATIO Normal 10-20 [facility] Comment on above: Order Comment: 1 Performed By: #### L 501.3620, L500.2500, L100.0100, L3600.5100, L501.4020 #### [facility] [address] [place], [place], [id number] [place],Total 9.6 mg/dL Normal 8.5-10.1 [facility] Comment on above: Order Comment: 1 Performed By: #### L 501.3620, L500.2500, L100.0100, L3600.5100, L501.4020 #### [facility] [address] [place], [address] Chloride [Moles/Vol] 104 mmol/L Normal 98-107 [facility] Comment on above: Order Comment: 1 Performed By: #### L 501.3620, L500.2500, L100.0100, L3600.5100, L501.4020 #### [facility] [address] [place], [address] CO2 [Moles/Vol] 27.0 mmol/L Normal 21.0-32.0 [facility] Comment on above: Order Comment: 1 Performed By: #### L 501.3620, L500.2500, L100.0100, L3600.5100, L501.4020 #### [facility] [address] [place], [address] Creatinine [Mass/Vol] 0.86 mg/dL Normal 0.55-1.02 [facility] Comment on above: Order Comment: 1 Result Comment: The validity of the calculated GFR GFRAA in patients over 70 years has not been determined. Clinical correlation is essential. Performed By: #### L 501.3620, L500.2500, L100.0100, L3600.5100, L501.4020 #### [facility] [address] [place], [address] EST GFR - AA 83 mL/min Normal >60 [facility] Comment on above: Order Comment: 1 Result Comment: Afri can Banglades[place] GFR Calc Performed By: #### L 501.3620, L500.2500, L100.0100, L3600.5100, L501.4020 #### [facility] [address] [place], [address] GAP 8 Normal 5-15 [facility] Comment on above: Order Comment: 1 Performed By: #### L 501.3620, L500.2500, L100.0100, L3600.5100, L501.4020 #### [facility] [address] [place], [address] GFR/1.73 sq M.predicted among non-blacks MDRD (S/P/Bld) [Vol rate/Area] 68 mL/min/{1.73_m2} Normal >60 [facility] Comment on above: Order Comment: 1 Result Comment: Non- GFR Calc Performed By: #### L 501.3620, L500.2500, L100.0100, L3600.5100, L501.4020 #### [facility] [address] [place], [address] Glucose [Mass/Vol] 120 mg/dL High 74-[address] [facility] Comment on above: Order Comment: 1 Result Comment: Fast ing Glucose result from 100 to 125 mg/dL suggests IMPAIRED HOMEOSTASIS per A.D.A. criteria. Performed By: #### L 501.3620, L500.2500, L100.0100, L3600.5100, L501.4020 #### [facility] [address] [place], [address] Potassium [Moles/Vol] 3.7 mmol/L Normal 3.5-5.1 [facility] Comment on above: Order Comment: 1 Performed By: #### L 501.3620, L500.2500, L100.0100, L3600.5100, L501.4020 #### [facility] [address] [place], [address] Sodium [Moles/Vol] 139 mmol/L Normal 136-[address] [facility] Comment on above: Order Comment: 1 Performed By: #### L 501.3620, L500.2500, L100.0100, L3600.5100, L501.4020 #### [facility] [address] [place], [address] Urea nitrogen [Mass/Vol] 16 mg/dL Normal 7-18 [facility] Comment on above: Order Comment: 1 Performed By: #### L 501.3620, L500.2500, L100.0100, L3600.5100, L501.4020 #### [facility] [place], [address] Blood urea nitrogen (BUN)/cr eatinine ratioOrdered By: Michaela Jaramillo on 04-16-2024 Urea nitrogen/Creatinine [Mass ratio] 18.5 mg/mg 10-20 [facility] Carbon dioxide measurementOr dered By: Michaela Jaramillo on 04-16-2024 CO2 [Moles/Vol] 27.0 mmol/L 21.0-32.0 [facility] Chloride measurementOrdered By: Michaela Jaramillo on 04-16-2024 Chloride [Moles/Vol] 104 mmol/L 98-107 [facility] Estimated glomerular filtrat ion rate (GFR) AmericanOrdered By: Michaela Jaramillo on 04-16-2024 Estimated GFR (MDRD) Amer 83 mL/min >60 [facility] Comment on above: GFR Calc Glomerular filtration rate ( GFR) estimationOrdered By: Michaela Jaramillo on 04-16-2024 Estimated GFR (MDRD) Non-Af Amer 68 mL/min >60 [facility] Comment on above: Non- GFR Calc Glucose measurementOrdered B y: Michaela Jaramillo on 04-16-2024 Glucose [Mass/Vol] 120 mg/dL High 74-[address] [facility] Comment on above: Fasting Glucose resu lt from 100 to 125 mg/dL suggests IMPAIRED HOMEOSTASIS per A.D.A. criteria. Potassium measurementOrdered By: Michaela Jaramillo on 04-16-2024 Potassium [Moles/Vol] 3.7 mmol/L 3.5-5.1 [facility] Serum anion gap measurementO rdered By: Michaela Jaramillo on 04-16-2024 Anion gap [Moles/Vol] 8 mmol/L 5-15 [facility] Serum or plasma calcium olive urement (mass/volume)Ordered By: Michaela Jaramillo on 04-16-2024 Calcium [Mass/Vol] 9.6 mg/dL 8.5-10.[address] [facility] Serum or plasma creatinine m easurement (mass/volume)Ordered By: Michaela Jaramillo on 04-16-2024 Creatinine [Mass/Vol] 0.86 mg/dL 0.55-1.02 [facility] Comment on above: The validity of the calculated GFR & GFRAA in patients over 70 years has not been determined. Clinical correlation is essential. Serum or plasma urea nitroge n measurement (mass/volume)Ordered By: Michaela Jaramillo on 04-16-2024 Urea nitrogen [Mass/Vol] 16 mg/dL 7-18 [facility] Sodium levelOrdered By: Jaycee Jaramillo on 04-16-2024 Sodium [Moles/Vol] 139 mmol/L 136-[address] [facility] .Auto Diffon 04-05-2024 Basophil, Absolute 0.0 10 3/mcL Normal 0.0-0.3 [facility] Comment on above: Performed By: #### A DIFF, GFR, CBC, BMP, ANEU #### [address] [address] Basophils/100 WBC (Bld) 0.5 % Normal 0.0-2.5 [facility] Comment on above: Performed By: #### A DIFF, GFR, CBC, BMP, ANEU #### [address] [address] Eosinophil, Absolute 0.1 10 3/mcL Normal 0.0-0.7 [facility] Comment on above: Performed By: #### A DIFF, GFR, CBC, BMP, ANEU #### [address] [address] Eosinophils/100 WBC (Bld) 2.1 % Normal 0.0-6.0 [facility] Comment on above: Performed By: #### A DIFF, GFR, CBC, BMP, ANEU #### [address] [address] Lymphocyte, Absolute 0.9 10 3/mcL Normal 0.9-4.3 [facility] Comment on above: Performed By: #### A DIFF, GFR, CBC, BMP, ANEU #### [address] [address] Lymphocytes/100 WBC (Bld) 13.2 % Low 20.0-40.0 [facility] Comment on above: Performed By: #### A DIFF, GFR, CBC, BMP, ANEU #### [facility] [address] [place] [address] Monocyte, Absolute 0.9 10 3/mcL Normal 0.1-1.4 [facility] Comment on above: Performed By: #### A DIFF, GFR, CBC, BMP, ANEU #### [address] [address] Monocytes/100 WBC (Bld) 13.3 % High 2.0-13.0 [facility] Comment on above: Performed By: #### A DIFF, GFR, CBC, BMP, ANEU #### [address] [address] Neutrophils/100 WBC (Bld) 70.9 % Normal 50.0-75.0 [facility] Comment on above: Performed By: #### A DIFF, GFR, CBC, BMP, ANEU #### [address] [address] .GFRon 04-05-2024 Estimated Glomerular Filtration Rate 74 ml/min/1.73sqm Normal [facility] Comment on above: Result Comment: Stages of Chronic Kidney Disease (CKD) Stage Description eGFR(ml/min/1.73 sq.m.) CKD 1 Normal kidney function or >=90 normal kindney function with possible kidney damage (ex. Proteinuria) CKD 2 Kidney damage with mild loss 60-89 of kidney function CKD 3a Mild to moderate loss of kidney 45-59 function CKD 3b Moderate to severe loss of 30-44 of kindey function CKD 4 Severe loss of kidney function 15-29 CKD 5 Kidney failure <15 Note: (go live 2024) the eGFR calculation was updated to the 2020 CKD-EPI creatinine equation without a race factor to calculate the eGFR results. Performed By: #### A DIFF, GFR, CBC, BMP, ANEU #### [address] [address] .NEUABSon 04-05-2024 Neutrophil, Absolute 5.0 10 3/mcL Normal 2.3-8.1 [facility] Comment on above: Performed By: #### A DIFF, GFR, CBC, BMP, ANEU #### [place] [address] CBCon 04-05-2024 Erythrocyte distribution width (RBC) [Ratio] 14.0 % Normal 11.5-15.5 [facility] Comment on above: Performed By: #### A DIFF, GFR, CBC, BMP, ANEU #### [place] [address] Hematocrit (Bld) [Volume fraction] 39.0 % Normal 34.0-46.0 [facility] Comment on above: Performed By: #### A DIFF, GFR, CBC, BMP, ANEU #### [place] [address] Hgb 13.7 G/dL Normal 12.0-16.0 [facility] Comment on above: Performed By: #### A DIFF, GFR, CBC, BMP, ANEU #### [place] [address] MCH (RBC) [Entitic mass] 33.5 pg High 27.0-33.0 [facility] Comment on above: Performed By: #### A DIFF, GFR, CBC, BMP, ANEU #### [place] [address] MCHC 35.2 G/dL Normal 32.0-36.0 [facility] Comment on above: Performed By: #### A DIFF, GFR, CBC, BMP, ANEU #### [place] [address] MCV (RBC) [Entitic vol] 95.0 fL Normal 80.0-99.0 [facility] Comment on above: Performed By: #### A DIFF, GFR, CBC, BMP, ANEU #### [place] [id number] Platelet 261 10 3/mcL Normal 150-450 [facility] Comment on above: Performed By: #### A DIFF, GFR, CBC, BMP, ANEU #### [facility] [address] [place], [place] [address] Platelet mean volume (Bld) [Entitic vol] 7.1 fL Normal 6.6-10.5 [facility] Comment on above: Performed By: #### A DIFF, GFR, CBC, BMP, ANEU #### [address] [address] RBC 4.10 10 6/mcL Normal 4.10-5.30 [facility] Comment on above: Performed By: #### A DIFF, GFR, CBC, BMP, ANEU #### [place] [address] WBC 7.1 10 3/mcL Normal 4.5-10.8 [facility] Comment on above: Performed By: #### A DIFF, GFR, CBC, BMP, ANEU #### [place] [address] CMPon 04-05-2024 Albumin Level 3.7 G/dL Normal 3.2-4.8 [facility] Comment on above: Performed By: #### A DIFF, GFR, CBC, BMP, ANEU #### [place] [address] Albumin/Globulin [Mass ratio] 1.1 {ratio} Normal 0.9-1.6 [facility] Comment on above: Performed By: #### A DIFF, GFR, CBC, BMP, ANEU #### [place] [id number] ALP [Catalytic activity/Vol] 103 U/L Normal 38-126 [facility] Comment on above: Performed By: #### A DIFF, GFR, CBC, BMP, ANEU #### [place] [id number] ALT [Catalytic activity/Vol] 30 U/L Normal 10-49 [facility] Comment on above: Performed By: #### A DIFF, GFR, CBC, BMP, ANEU #### [place] [id number] AST [Catalytic activity/Vol] 19 U/L Normal 8-34 [facility] Comment on above: Performed By: #### A DIFF, GFR, CBC, BMP, ANEU #### [place] [address] Bili Total 0.70 mg/dL Normal 0.20-1.20 [facility] Comment on above: Result Comment: Use of this assay is not recommended for patients undergoing treatment with eltrombopag due to the potential for falsely elevated results. Performed By: #### A DIFF, GFR, CBC, BMP, ANEU #### [place] [id number] BUN/Creatinine Ratio 21.7 ratio Normal 10.0-22.0 [facility] Comment on above: Performed By: #### A DIFF, GFR, CBC, BMP, ANEU #### [place] [id number] Calcium [Mass/Vol] 9.9 mg/dL Normal 8.7-10.4 [facility] Comment on above: Performed By: #### A DIFF, GFR, CBC, BMP, ANEU #### [place] [id number] Chloride [Moles/Vol] 105 mmol/L Normal 98-110 [facility] Comment on above: Performed By: #### A DIFF, GFR, CBC, BMP, ANEU #### [place] [id number] CO2 [Moles/Vol] 30 mmol/L Normal 22-32 [facility] Comment on above: Performed By: #### A DIFF, GFR, CBC, BMP, ANEU #### [place] [id number] Creatinine [Mass/Vol] 0.83 mg/dL Normal 0.50-1.20 [facility] Comment on above: Result Comment: Test ing performed on Numecent analyzer using enzymatic creatinine methodology. Performed By: #### A DIFF, GFR, CBC, BMP, ANEU #### [place] [id number] Electrolyte Balance 6.0 mEq/L Normal 4.0-15.0 [facility] Comment on above: Performed By: #### A DIFF, GFR, CBC, BMP, ANEU #### [place] [id number] Globulin 3.3 G/dL Normal 1.5-3.8 [facility] Comment on above: Performed By: #### A DIFF, GFR, CBC, BMP, ANEU #### [address] [address] Glucose [Mass/Vol] 91 mg/dL Normal 82-115 [facility] Comment on above: Performed By: #### A DIFF, GFR, CBC, BMP, ANEU #### [address] [address] Potassium [Moles/Vol] 4.0 mmol/L Normal 3.5-5.0 [facility] Comment on above: Performed By: #### A DIFF, GFR, CBC, BMP, ANEU #### [address] [address] Sodium [Moles/Vol] 141 mmol/L Normal 136-145 [facility] Comment on above: Performed By: #### A DIFF, GFR, CBC, BMP, ANEU #### [address] [address] Total Protein 7.0 G/dL Normal 5.7-8.2 [facility] Comment on above: Performed By: #### A DIFF, GFR, CBC, BMP, ANEU #### [address] [address] Urea nitrogen [Mass/Vol] 18.0 mg/dL Normal 8.0-22.0 [facility] Comment on above: Performed By: #### A DIFF, GFR, CBC, BMP, ANEU #### [address] [address] LABORATORYOrdered By: SYSTEM SYSTEM on 04-05-2024 Albumin BCP dye [Mass/Vol] 3.7 G/dL Normal 3.2 - 4.8 G/dL ADM SS Albumin/Globulin [Mass ratio] 1.1 {ratio} Normal 0.9 - 1.6 ratio AH ADM SS ALP [Catalytic activity/Vol] 103 U/L Normal 38 - 126 U/L ADM SS ALT No additional P-5'-P [Catalytic activity/Vol] 30 U/L Normal 10 - 49 U/L ADM SS AST [Catalytic activity/Vol] 19 U/L Normal 8 - 34 U/L AH ADM SS Basophils (Bld) [#/Vol] 0.0 103/mcL Normal 0.0 - 0.3 10^3/mcL AH Workflow SS Basophils/100 WBC (Bld) 0.5 % Normal 0.0 - 2.5 % Workflow SS Bilirubin [Mass/Vol] 0.70 mg/dL Normal 0.20 - 1.20 mg/dL ADM SS Comment on above: Interpretive Data: U se of this assay is not recommended for patients undergoing treatment with eltrombopag due to the potential for falsely elevated results. Calcium [Mass/Vol] 9.9 mg/dL Normal 8.7 - 10. 4 mg/dL ADM SS Chloride [Moles/Vol] 105 mmol/L Normal 98 - 11 0 mEq/L AH ADM SS CO2 [Moles/Vol] 30 mmol/L Normal 22 - 32 mEq/L ADM SS Creatinine [Mass/Vol] 0.83 mg/dL Normal 0.50 - 1.20 mg/dL ADM SS Comment on above: Interpretive Data: T esting performed on Numecent analyzer using enzymatic creatinine methodology. Electrolyte Balance 6.0 mEq/L Normal 4.0 - 15 .0 mEq/L ADM SS Eosinophils (Bld) [#/Vol] 0.1 103/mcL Normal 0.0 - 0.7 10^3/mcL Workflow SS Eosinophils/100 WBC (Bld) 2.1 % Normal 0.0 - 6.0 % Workflow SS Erythrocyte distribution width (RBC) [Ratio] 14.0 % Normal 11.5 - 15.5 % Workflow SS Estimated Glomerular Filtration Rate 74 ml/min/1.73sqm Invalid Interpretation Code ADM SS Comment on above: Interpretive Data: Stages of Chronic Kidney Disease (CKD) Stage Description eGFR(ml/min/1.73 sq.m.) CKD 1 Normal kidney function or >=90 normal kindney function with possible kidney damage (ex. Proteinuria) CKD 2 Kidney damage with mild loss 60-89 of kidney function CKD 3a Mild to moderate loss of kidney 45-59 function CKD 3b Moderate to severe loss of 30-44 of kindey function CKD 4 Severe loss of kidney function 15-29 CKD 5 Kidney failure <15 Note: (go live 2024) the eGFR calculation was updated to the 2020 CKD-EPI creatinine equation without a race factor to calculate the eGFR results. Globulin 3.3 G/dL Normal 1.5 - 3.8 G/dL ADM SS Glucose [Mass/Vol] 91 mg/dL Normal 82 - 115 mg/dL ADM SS Hematocrit (Bld) [Volume fraction] 39.0 % Normal 34.0 - 46.0 % AH Workflow SS Hemoglobin (Bld) [Mass/Vol] 13.7 G/dL Normal 12.0 - 16.0 G/dL AH Workflow SS Lymphocytes (Bld) [#/Vol] 0.9 103/mcL Normal 0.9 - 4.3 10^3/mcL AH Workflow SS Lymphocytes/100 WBC (Bld) 13.2 % Low 20.0 - 40.0 % AH Workflow SS MCH (RBC) [Entitic mass] 33.5 pg High 27.0 - 33.0 pg AH Workflow SS MCHC 35.2 G/dL Normal 32.0 - 36.0 G/dL Workflow SS MCV (RBC) [Entitic vol] 95.0 fL Normal 80.0 - 99.0 fL Workflow SS Monocytes (Bld) [#/Vol] 0.9 103/mcL Normal 0.1 - 1.4 10^3/mcL AH Workflow SS Monocytes/100 WBC (Bld) 13.3 % High 2.0 - 13.0 % AH Workflow SS Neutrophils (Bld) [#/Vol] 5.0 103/mcL Normal 2.3 - 8.1 10^3/mcL AH Workflow SS Neutrophils/100 WBC (Bld) 70.9 % Normal 50.0 - 75.0 % AH Workflow SS Platelet mean volume (Bld) [Entitic vol] 7.1 fL Normal 6.6 - 10.5 fL AH Workflow SS Platelets (Bld) [#/Vol] 261 103/mcL Normal 150 - 450 10^3/mcL AH Workflow SS Potassium [Moles/Vol] 4.0 mmol/L Normal 3.5 - 5.0 mEq/L ADM SS Protein [Mass/Vol] 7.0 G/dL Normal 5.7 - 8.2 G/dL ADM SS RBC (Bld) [#/Vol] 4.10 106/mcL Normal 4.10 - 5.3 0 10^6/mcL AH Workflow SS Sodium [Moles/Vol] 141 mmol/L Normal 136 - 145 mEq/L AH ADM SS Urea nitrogen [Mass/Vol] 18.0 mg/dL Normal 8.0 - 22.0 mg/dL AH ADM SS Urea nitrogen/Creatinine [Mass ratio] 21.7 ratio Normal 10.0 - 22.0 ratio AH ADM SS WBC (Bld) [#/Vol] 7.1 103/mcL Normal 4.5 - 10.8 10^3/mcL AH Workflow SS Absolute neutrophil countOrd ered By: Michaela Jaramillo on 04-02-2024 Neutrophils (Bld) [#/Vol] 2.6 10*3/uL 2.0-7.7 [facility] Basic Metabolic Profile (BMP )on 04-02-2024 BUN/CRE 20.9 RATIO High 10-20 [facility] Comment on above: Order Comment: 207.1 Performed By: #### L 100.0100, L501.5200, L500.2500, L501.6710 #### [facility] [address] [place], [address] CA,Total 9.5 mg/dL Normal 8.5-10.1 [facility] Comment on above: Order Comment: 207.1 Performed By: #### L 100.0100, L501.5200, L500.2500, L501.6710 #### [facility] [address] [place], [address] Chloride [Moles/Vol] 105 mmol/L Normal 98-107 [facility] Comment on above: Order Comment: 207.1 Performed By: #### L 100.0100, L501.5200, L500.2500, L501.6710 #### [facility] [address] [place], [address] CO2 [Moles/Vol] 30.0 mmol/L Normal 21.0-32.0 [facility] Comment on above: Order Comment: 207.1 Performed By: #### L 100.0100, L501.5200, L500.2500, L501.6710 #### [facility] [address] [place], [address] Creatinine [Mass/Vol] 0.86 mg/dL Normal 0.55-1.02 [facility] Comment on above: Order Comment: 207.1 Result Comment: The validity of the calculated GFR GFRAA in patients over 70 years has not been determined. Clinical correlation is essential. Performed By: #### L 100.0100, L501.5200, L500.2500, L501.6710 #### [facility] [address] [place], [address] EST GFR - AA 83 mL/min Normal >60 [facility] Comment on above: Order Comment: 207.1 Result Comment: Afri can Bangladeshi GFR Calc Performed By: #### L 100.0100, L501.5200, L500.2500, L501.6710 #### [facility] [address] [place], [address] GAP 6 Normal 5-15 [facility] Comment on above: Order Comment: 207.1 Performed By: #### L 100.0100, L501.5200, L500.2500, L501.6710 #### [facility] [address] [place], [address] GFR/1.73 sq M.predicted among non-blacks MDRD (S/P/Bld) [Vol rate/Area] 69 mL/min/{1.73_m2} Normal >60 [facility] Comment on above: Order Comment: 207.1 Result Comment: Non- GFR Calc Performed By: #### L 100.0100, L501.5200, L500.2500, L501.6710 #### [facility] [address] [place], [address] Glucose [Mass/Vol] 99 mg/dL Normal 74-[address] [facility] Comment on above: Order Comment: 207.1 Performed By: #### L 100.0100, L501.5200, L500.2500, L501.6710 #### [facility] [address] [place], [address] Potassium [Moles/Vol] 3.3 mmol/L Low 3.5-5.1 [facility] Comment on above: Order Comment: 207.1 Performed By: #### L 100.0100, L501.5200, L500.2500, L501.6710 #### [facility] [address] [place], [address] Sodium [Moles/Vol] 141 mmol/L Normal 136-[address] [facility] Comment on above: Order Comment: 207.1 Performed By: #### L 100.0100, L501.5200, L500.2500, [id number] #### [facility] [address] [place], [address] Urea nitrogen [Mass/Vol] 18 mg/dL Normal 7-18 [facility] Comment on above: Order Comment: 207.1 Performed By: #### L 100.0100, L501.5200, L500.2500, L501.6710 #### [facility] [address] [place], [address] Basophil percentageOrdered B y: Michaela Jaramillo on 04-02-2024 Basophils/100 WBC (Bld) 0.7 % 0-[address] [facility] Blood urea nitrogen (BUN)/cr eatinine ratioOrdered By: Michaela Jaramillo on 04-02-2024 Urea nitrogen/Creatinine [Mass ratio] 20.9 mg/mg High 10-20 [facility] CBC W/Diff, Automatedon 02-0 Absolute Lymph 0.90 X10 3/uL Normal 0.83-4.51 [facility] Comment on above: Order Comment: 207.1 Performed By: #### L 100.0100, L501.5200, L500.2500, L501.6710 #### [facility] [address] [place], [address] Absolute Neut 2.6 X10 3/uL Normal 2.0-7.7 [facility] Comment on above: Order Comment: 207.1 Performed By: #### L 100.0100, L501.5200, L500.2500, L501.6710 #### [facility] [address] [place], [address] Basophils/100 WBC (Bld) 0.7 % Normal 0-[address] [facility] Comment on above: Order Comment: 207.1 Performed By: #### L 100.0100, L501.5200, L500.2500, L501.6710 #### [facility] [address] [place], [address] Eosinophils/100 WBC (Bld) 5.1 % High 0-5 [facility] Comment on above: Order Comment: 207.1 Performed By: #### L 100.0100, L501.5200, L500.2500, L501.6710 #### [facility] [address] [place], [address] Erythrocyte distribution width (RBC) [Ratio] 13.2 % Normal 11.6-14.6 [facility] Comment on above: Order Comment: 207.1 Performed By: #### L 100.0100, L501.5200, L500.2500, L501.6710 #### [facility] [address] [place], [address] Hematocrit (Bld) [Volume fraction] 39.2 % Normal 37-47 [facility] Comment on above: Order Comment: 207.1 Performed By: #### L 100.0100, L501.5200, L500.2500, L501.6710 #### [facility] [address] [place], [address] Hemoglobin (Bld) [Mass/Vol] 12.8 g/dL Normal 12.0-15.0 [facility] Comment on above: Order Comment: 207.1 Performed By: #### L 100.0100, L501.5200, L500.2500, L501.6710 #### [facility] [address] [place], [address] IG% 0.200 Normal 0.0-0.9 [facility] Comment on above: Order Comment: 207.1 Result Comment: IG% - Immature Granulocytes (promyelocytes, myelocytes and metamyelocytes) > 1% indicates that a LEFT SHIFT is Present. Performed By: #### L 100.0100, L501.5200, L500.2500, L501.6710 #### [facility] [address] [place], [address] Lymphocytes/100 WBC (Bld) 20.9 % Normal 19-41 [facility] Comment on above: Order Comment: 207.1 Performed By: #### L 100.0100, L501.5200, L500.2500, L501.6710 #### [facility] [address] [place], [address] MCH (RBC) [Entitic mass] 32.0 pg Normal 27.0-32.0 [facility] Comment on above: Order Comment: 207.1 Performed By: #### L 100.0100, L501.5200, L500.2500, L501.6710 #### [facility] [address] [place], [address] MCHC (RBC) [Mass/Vol] 32.7 g/dL Normal 32-36 [facility] Comment on above: Order Comment: 207.1 Performed By: #### L 100.0100, L501.5200, L500.2500, L501.6710 #### [facility] [address] [place], [address] MCV (RBC) [Entitic vol] 98.0 fL Normal 81-[address] [facility] Comment on above: Order Comment: 207.1 Performed By: #### L 100.0100, L501.5200, L500.2500, L501.6710 #### [facility] [address] [place], [address] Monocytes/100 WBC (Bld) 13.3 % High 0-[address] [facility] Comment on above: Order Comment: 207.1 Performed By: #### L 100.0100, L501.5200, L500.2500, L501.6710 #### [facility] [address] [place], [address] Neutrophils/100 WBC (Bld) 59.8 % Normal 47-70 [facility] Comment on above: Order Comment: 207.1 Performed By: #### L 100.0100, L501.5200, L500.2500, L501.6710 #### [facility] [address] [place], [address] Nucleated RBC (Bld) [#/Vol] 0 10*3/uL Normal 0-5 [facility] Comment on above: Order Comment: 207.1 Performed By: #### L 100.0100, L501.5200, L500.2500, L501.6710 #### [facility] [address] [place], [address] Platelet mean volume (Bld) [Entitic vol] 9.3 fL Normal 6.2-12.0 [facility] Comment on above: Order Comment: 207.1 Performed By: #### L 100.0100, L501.5200, L500.2500, L501.6710 #### [facility] [address] [place], [address] Platelets (Bld) [#/Vol] 243 10*3/uL Normal 150-450 [facility] Comment on above: Order Comment: 207.1 Performed By: #### L 100.0100, L501.5200, L500.2500, L501.6710 #### [facility] [address] [place], [address] RBC (Bld) [#/Vol] 4.00 10*6/uL Low 4.2-5.4 [facility] Comment on above: Order Comment: 207.1 Performed By: #### L 100.0100, L501.5200, L500.2500, L501.6710 #### [facility] [address] [place], [place], [address] [phone] [phone] SD 46.7 fl High 35.1-43.9 [facility] Comment on above: Order Comment: 207.1 Performed By: #### L 100.0100, L501.5200, L500.2500, L501.6710 #### [facility] [address] [place], [place], [phone] ([phone] WBC (Bld) [#/Vol] 4.3 10*3/uL Low 4.4-11.[address] [facility] Comment on above: Order Comment: 207.1 Performed By: #### L 100.0100, L501.5200, L500.2500, L501.6710 #### [facility] [address] [place], [address] Carbon dioxide measurementOr dered By: Michaela Jaramillo on 04-02-2024 CO2 [Moles/Vol] 30.0 mmol/L 21.0-32.0 [facility] Chloride measurementOrdered By: Michaela Jaramillo on 04-02-2024 Chloride [Moles/Vol] 105 mmol/L 98-107 [facility] Eosinophil percentageOrdered By: Michaela Jaramillo on 04-02-2024 Eosinophils/100 WBC (Bld) 5.1 % High 0-5 [facility] Erythrocyte distribution wid th ratioOrdered By: Michaela Jaramillo on 04-02-2024 Erythrocyte distribution width (RBC) [Ratio] 13.2 % 11.6-14.6 [facility] Erythrocyte distribution wid th standard deviationOrdered By: Michaela Jaramillo on 04-02-2024 Erythrocyte distribution width (RBC) [Entitic vol] 46.7 fL High 35.1-43.9 [facility] Estimated glomerular filtrat ion rate (GFR) AmericanOrdered By: Michaela Jaramillo on 04-02-2024 Estimated GFR (MDRD) Amer 83 mL/min >60 [facility] Comment on above: GFR Calc Glomerular filtration rate ( GFR) estimationOrdered By: Michaela Jaramillo on 04-02-2024 Estimated GFR (MDRD) Non-Af Amer 69 mL/min >60 [facility] Comment on above: Non- GFR Calc Glucose measurementOrdered B y: Michaela Jaramillo on 04-02-2024 Glucose [Mass/Vol] 99 mg/dL 74-[address] [facility] Hematocrit Auto (Bld) [Volum e fraction]Ordered By: Michaela Jaramillo on 04-02-2024 Hematocrit (Bld) [Volume fraction] 39.2 % 37-47 [facility] Hemoglobin measurementOrdere d By: Michaela Jaramillo on 04-02-2024 Hemoglobin (Bld) [Mass/Vol] 12.8 g/dL 12.0-15.0 [facility] Immature granulocytes/100 WB C Auto (Bld)Ordered By: Michaela Jaramillo on 04-02-2024 Immature granulocytes/100 WBC (Bld) 0.200 % 0.0-0.9 [facility] Comment on above: IG% - Immature Granu locytes (promyelocytes, myelocytes and metamyelocytes) > 1% indicates that a LEFT SHIFT is Present. Lymphocytes Auto (Unsp spec) [#/Vol]Ordered By: Michaela Jaramillo on 04-02-2024 Lymphocytes (Bld) [#/Vol] 0.90 10*3/uL 0.83-4.51 [facility] Lymphocytes/100 WBC Auto (Un sp spec)Ordered By: Michaela Jaramillo on 04-02-2024 Lymphocytes/100 WBC (Bld) 20.9 % 19-41 [facility] MCV (mean corpuscular volume ) determinationOrdered By: Michaela Jaramillo on 04-02-2024 MCV (RBC) [Entitic vol] 98.0 fL 81-[address] [facility] Mean corpuscular hemoglobin (MCH) determinationOrdered By: Michaela Jaramillo on 04-02-2024 MCH (RBC) [Entitic mass] 32.0 pg 27.0-32.0 [facility] Mean corpuscular hemoglobin concentration (MCHC) determinationOrdered By: Michaela Jaramillo on 04-02-2024 MCHC (RBC) [Mass/Vol] 32.7 g/dL 32-36 [facility] Mean platelet volume determi nationOrdered By: Michaela Jaramillo on 04-02-2024 Platelet mean volume (Bld) [Entitic vol] 9.3 fL 6.2-12.0 [facility] Monocyte percentageOrdered B y: Michaela Jaramillo on 04-02-2024 Monocytes/100 WBC (Bld) 13.3 % High 0-[address] [facility] Neutrophil percentageOrdered By: Michaela Jaramillo on 04-02-2024 Neutrophils/100 WBC (Bld) 59.8 % 47-70 [facility] Nucleated red blood cell per centageOrdered By: Michaela Jaramillo on 04-02-2024 Nucleated RBC/100 WBC (Bld) [Ratio] 0 % 0-5 [facility] Platelet countOrdered By: Steven Jaramillo on 04-02-2024 Platelets (Bld) [#/Vol] 243 10*3/uL 150-450 [facility] Potassium measurementOrdered By: Michaela Jaramillo on 04-02-2024 Potassium [Moles/Vol] 3.3 mmol/L Low 3.5-5.1 [facility] RBC Auto (Bld) [#/Vol]Ordere d By: Michaela Jaramillo on 04-02-2024 RBC (Bld) [#/Vol] 4.00 10*6/uL Low 4.2-5.4 [facility] Serum anion gap measurementO rdered By: Michaela Jaramillo on 04-02-2024 Anion gap [Moles/Vol] 6 mmol/L 5-15 [facility] Serum or plasma calcium olive urement (mass/volume)Ordered By: Michaela Jaramillo on 04-02-2024 Calcium [Mass/Vol] 9.5 mg/dL 8.5-10.[address] [facility] Serum or plasma creatinine m easurement (mass/volume)Ordered By: Michaela Jaramillo on 04-02-2024 Creatinine [Mass/Vol] 0.86 mg/dL 0.55-1.02 [facility] Comment on above: The validity of the calculated GFR & GFRAA in patients over 70 years has not been determined. Clinical correlation is essential. Serum or plasma urea nitroge n measurement (mass/volume)Ordered By: Michaela Jaramillo on 04-02-2024 Urea nitrogen [Mass/Vol] 18 mg/dL 7-18 [facility] Sodium levelOrdered By: Jaycee Jaramillo on 04-02-2024 Sodium [Moles/Vol] 141 mmol/L 136-[address] [facility] White blood cell (WBC) count Ordered By: Michaela Jaramillo on 04-02-2024 WBC (Bld) [#/Vol] 4.3 10*3/uL Low 4.4-11.[address] [facility] TSH QnOrdered By: Michaela De Jesus la on 03-14-2024 Thyroid Stimulating Hormone (TSH) 6.850 uIU/mL High 0.358-3.740 [facility] Thyroid Stim Hormone (TSH)on 03-14-2024 TSH 6.850 uIU/mL High 0.358-3.740 [facility] Comment on above: Performed By: #### L 501.3620, L500.2500, L100.0100, L3600.5100, L501.4020 #### [facility] [address] [place], [address] MRI BRAIN W/ + W/O CONTRASTo n 03-06-2024 MRI BRAIN W/ + W/O CONTRAST ORIGINAL HISTORY: Radiation therapy planning COMPARISON: 30 January 2024, 31 January 2024 TECHNIQUE: 1. Sagittal and axial T1-weighted images. 2. Axial FLAIR images. 3. Axial T2-weighted and T2*-weighted images. 4. Axial diffusion-weighted images with ADC map. 5. Axial, sagittal and coronal T1-weighted images following uncomplicated administration of intravenous gadolinium contrast. FINDINGS: There is a right occipital craniotomy. There is and underlying resection cavity containing fluid, about 2.8 cm in diameter. This is T2 hyperintense and T1 isointense with T1 hyperintense and T2* hypointense enhancing rim. There is an irregular 1 cm enhancing focus at the anterolateral aspect of the lesion. There is increased T2 signal in the medial right cerebral hemisphere, mostly involving medial temporal and occipital cortex including the splenium. The ventricles and sulci are otherwise within normal size limits. There is no shift of midline structures. There are punctate and nodular T2 hyperintensities in the left cerebral white matter. A small to moderate left developmental venous anomaly is incidentally noted. There is no abnormal restriction of diffusion. IMPRESSION: Left occipital resection with evolution of previously seen postoperative changes. Signal changes in the medial left cerebral hemisphere have subsided somewhat, presumably improving edema. Interpreted by: Jose Bowman MD Preliminary Report By: Jose Bowman MD Electronically signed By Jose Bowman MD Dictated Date: 03/06/2024 1:47:36 PM Prelim Date: 03/06/2024 1:53:41 PM Sign Date: 03/06/2024 1:53:41 PM Ordering Provider: CLINTON Danielle [facility] Absolute neutrophil countOrd ered By: Michaela Jaramillo on 03-05-2024 Neutrophils (Bld) [#/Vol] 3.4 10*3/uL 2.0-7.7 [facility] Basic Metabolic Profile (BMP )on 03-05-2024 BUN/CRE 14.9 RATIO Normal 10-20 [facility] Comment on above: Order Comment: 207.1 Performed By: #### L 100.0100, L501.5200, L500.2500, L501.6710 #### [facility] [address] [place], [address] CA,Total 9.1 mg/dL Normal 8.5-10.1 [facility] Comment on above: Order Comment: 207.1 Performed By: #### L 100.0100, L501.5200, L500.2500, L501.6710 #### [facility] [address] [place], [address] Chloride [Moles/Vol] 104 mmol/L Normal 98-107 [facility] Comment on above: Order Comment: 207.1 Performed By: #### L 100.0100, L501.5200, L500.2500, L501.6710 #### [facility] [address] [place], [address] CO2 [Moles/Vol] 28.0 mmol/L Normal 21.0-32.0 [facility] Comment on above: Order Comment: 207.1 Performed By: #### L 100.0100, L501.5200, L500.2500, L501.6710 #### [facility] [address] [place], [address] Creatinine [Mass/Vol] 0.87 mg/dL Normal 0.55-1.02 [facility] Comment on above: Order Comment: 207.1 Result Comment: The validity of the calculated GFR GFRAA in patients over 70 years has not been determined. Clinical correlation is essential. Performed By: #### L 100.0100, L501.5200, L500.2500, L501.6710 #### [facility] [address] [place], [address] EST GFR - AA 82 mL/min Normal >60 [facility] Comment on above: Order Comment: 207.1 Result Comment: Afri can Bangladeshi GFR Calc Performed By: #### L 100.0100, L501.5200, L500.2500, L501.6710 #### [facility] [address] [place], [address] GAP 6 Normal 5-15 [facility] Comment on above: Order Comment: 207.1 Performed By: #### L 100.0100, L501.5200, L500.2500, L501.6710 #### [facility] [address] [place], [address] GFR/1.73 sq M.predicted among non-blacks MDRD (S/P/Bld) [Vol rate/Area] 68 mL/min/{1.73_m2} Normal >60 [facility] Comment on above: Order Comment: 207.1 Result Comment: Non- GFR Calc Performed By: #### L 100.0100, L501.5200, L500.2500, L501.6710 #### [facility] [address] [place], [address] Glucose [Mass/Vol] 159 mg/dL High 74-[address] [facility] Comment on above: Order Comment: 207.1 Result Comment: Fast ing Glucose result greater than or equal to 126 mg/dL suggests DIABETES MELLITUS per A.D.A. criteria. Performed By: #### L 100.0100, L501.5200, L500.2500, L501.6710 #### [facility] [address] [place], [address] Potassium [Moles/Vol] 3.6 mmol/L Normal 3.5-5.1 [facility] Comment on above: Order Comment: 207.1 Performed By: #### L 100.0100, L501.5200, L500.2500, L501.6710 #### [facility] [address] [place], [address] Sodium [Moles/Vol] 138 mmol/L Normal 136-[address] [facility] Comment on above: Order Comment: 207.1 Performed By: #### L 100.0100, L501.5200, L500.2500, L501.6710 #### [facility] [address] [place], [address] Urea nitrogen [Mass/Vol] 13 mg/dL Normal 7-18 [facility] Comment on above: Order Comment: 207.1 Performed By: #### L 100.0100, L501.5200, L500.2500, L501.6710 #### [facility] [address] [place], [address] Basophil percentageOrdered B y: Michaela Jaramillo on 03-05-2024 Basophils/100 WBC (Bld) 0.4 % 0-[address] [facility] Blood urea nitrogen (BUN)/cr eatinine ratioOrdered By: Michaela Jaramillo on 03-05-2024 Urea nitrogen/Creatinine [Mass ratio] 14.9 mg/mg 10-20 [facility] C-reactive protein measureme nt by high sensitivity methodOrdered By: Michaela Jaramillo on 03-05-2024 C-Reactive Protein Extended Range 12.30 mg/L High 0.0-3.0 [facility] Comment on above: C-Reactive Protein ( CRP) provides useful information for thediagnosis, therapy and monitoring of inflammatory processesand associated diseases. For the evaluation of Relative Riskfor Cardiovascular Disease, a High Sensitivity CRP (HSCRP)should be ordered. CBC W/Diff, Automatedon Absolute Lymph 1.00 X10 3/uL Normal 0.83-4.51 [facility] Comment on above: Order Comment: 207.1 Performed By: #### L 100.0100, L501.5200, L500.2500, L501.6710 #### [facility] [address] [place], [address] Absolute Neut 3.4 X10 3/uL Normal 2.0-7.7 [facility] Comment on above: Order Comment: 207.1 Performed By: #### L 100.0100, L501.5200, L500.2500, L501.6710 #### [facility] [address] [place], [address] Basophils/100 WBC (Bld) 0.4 % Normal 0-[address] [facility] Comment on above: Order Comment: 207.1 Performed By: #### L 100.0100, L501.5200, L500.2500, L501.6710 #### [facility] [address] [place], [address] Eosinophils/100 WBC (Bld) 1.1 % Normal 0-5 [facility] Comment on above: Order Comment: 207.1 Performed By: #### L 100.0100, L501.5200, L500.2500, L501.6710 #### [facility] [address] [place], [address] Erythrocyte distribution width (RBC) [Ratio] 12.6 % Normal 11.6-14.6 [facility] Comment on above: Order Comment: 207.1 Performed By: #### L 100.0100, L501.5200, L500.2500, L501.6710 #### [facility] [address] [place], [address] Hematocrit (Bld) [Volume fraction] 37.5 % Normal 37-47 [facility] Comment on above: Order Comment: 207.1 Performed By: #### L 100.0100, L501.5200, L500.2500, L501.6710 #### [facility] [address] [place], [address] Hemoglobin (Bld) [Mass/Vol] 12.3 g/dL Normal 12.0-15.0 [facility] Comment on above: Order Comment: 207.1 Performed By: #### L 100.0100, L501.5200, L500.2500, L501.6710 #### [facility] [address] [place], [address] IG% 0.600 Normal 0.0-0.9 [facility] Comment on above: Order Comment: 207.1 Result Comment: IG% - Immature Granulocytes (promyelocytes, myelocytes and metamyelocytes) > 1% indicates that a LEFT SHIFT is Present. Performed By: #### L 100.0100, L501.5200, L500.2500, L501.6710 #### [facility] [address] [place], [address] Lymphocytes/100 WBC (Bld) 18.8 % Low 19-41 [facility] Comment on above: Order Comment: 207.1 Performed By: #### L 100.0100, L501.5200, L500.2500, L501.6710 #### [facility] [address] [place], [address] MCH (RBC) [Entitic mass] 32.1 pg High 27.0-32.0 [facility] Comment on above: Order Comment: 207.1 Performed By: #### L 100.0100, L501.5200, L500.2500, L501.6710 #### [facility] [address] [place], [address] MCHC (RBC) [Mass/Vol] 32.8 g/dL Normal 32-36 [facility] Comment on above: Order Comment: 207.1 Performed By: #### L 100.0100, L501.5200, L500.2500, L501.6710 #### [facility] [address] [place], [address] MCV (RBC) [Entitic vol] 97.9 fL Normal 81-99 [facility] Comment on above: Order Comment: 207.1 Performed By: #### L 100.0100, L501.5200, L500.2500, L501.6710 #### [facility] [address] [place], [address] Monocytes/100 WBC (Bld) 14.7 % High 0-10 [facility] Comment on above: Order Comment: 207.1 Performed By: #### L 100.0100, L501.5200, L500.2500, L501.6710 #### [facility] [address] [place], [address] Neutrophils/100 WBC (Bld) 64.4 % Normal 47-70 [facility] Comment on above: Order Comment: 207.1 Performed By: #### L 100.0100, L501.5200, L500.2500, L501.6710 #### [facility] [address] [place], [address] Nucleated RBC (Bld) [#/Vol] 0 10*3/uL Normal 0-5 [facility] Comment on above: Order Comment: 207.1 Performed By: #### L 100.0100, L501.5200, L500.2500, L501.6710 #### [facility] [address] [place], [address] Platelet mean volume (Bld) [Entitic vol] 9.1 fL Normal 6.2-12.0 [facility] Comment on above: Order Comment: 207.1 Performed By: #### L 100.0100, L501.5200, L500.2500, L501.6710 #### [facility] [address] [place], [address] Platelets (Bld) [#/Vol] 275 10*3/uL Normal 150-450 [facility] Comment on above: Order Comment: 207.1 Performed By: #### L 100.0100, L501.5200, L500.2500, L501.6710 #### [facility] [address] [place], [address] RBC (Bld) [#/Vol] 3.83 10*6/uL Low 4.2-5.4 [facility] Comment on above: Order Comment: 207.1 Performed By: #### L 100.0100, L501.5200, L500.2500, L501.6710 #### [facility] [address] [place], [address] RDW SD 45.1 fl High 35.1-43.9 [facility] Comment on above: Order Comment: 207.1 Performed By: #### L 100.0100, L501.5200, L500.2500, L501.6710 #### [facility] [address] [place], [address] WBC (Bld) [#/Vol] 5.3 10*3/uL Normal 4.4-11.[address] [facility] Comment on above: Order Comment: 207.1 Performed By: #### L 100.0100, L501.5200, L500.2500, L501.6710 #### [facility] [address] [place], [address] CRPon 03-05-2024 C-REACTIVE PROT 12.30 mg/L High 0.0-3.0 [facility] Comment on above: Order Comment: 207.1 Result Comment: C-Re active Protein (CRP) provides useful information for the diagnosis, therapy and monitoring of inflammatory processes and associated diseases. For the evaluation of Relative Risk for Cardiovascular Disease, a High Sensitivity CRP (HSCRP) should be ordered. Performed By: #### L 100.0100, L501.5200, L500.2500, L501.6710 #### [facility] [address] [place], [place], [address] Carbon dioxide measurementOr dered By: Michaela Jaramillo on 03-05-2024 CO2 [Moles/Vol] 28.0 mmol/L 21.0-32.0 [facility] Chloride measurementOrdered By: Michaela Jaramillo on 03-05-2024 Chloride [Moles/Vol] 104 mmol/L 98-107 [facility] Eosinophil percentageOrdered By: Michaela Jaramillo on 03-05-2024 Eosinophils/100 WBC (Bld) 1.1 % 0-5 [facility] Erythrocyte distribution wid th ratioOrdered By: Michaela Jaramillo on 03-05-2024 Erythrocyte distribution width (RBC) [Ratio] 12.6 % 11.6-14.6 [facility] Erythrocyte distribution wid th standard deviationOrdered By: Michaela Jaramillo on 03-05-2024 Erythrocyte distribution width (RBC) [Entitic vol] 45.1 fL High 35.1-43.9 [facility] Estimated glomerular filtrat ion rate (GFR) AmericanOrdered By: Michaela Jaramillo on 03-05-2024 Estimated GFR (MDRD) Amer 82 mL/min >60 [facility] Comment on above: GFR Calc Glomerular filtration rate ( GFR) estimationOrdered By: Michaela Jaramillo on 03-05-2024 Estimated GFR (MDRD) Non-Af Amer 68 mL/min >60 [facility] Comment on above: Non- GFR Calc Glucose measurementOrdered B y: Michaela Jaramillo on 03-05-2024 Glucose [Mass/Vol] 159 mg/dL High 74-[address] [facility] Comment on above: Fasting Glucose resu lt greater than or equal to 126 mg/dL suggests DIABETES MELLITUS per A.D.A. criteria. Hematocrit Auto (Bld) [Volum e fraction]Ordered By: Michaela Jaramillo on 03-05-2024 Hematocrit (Bld) [Volume fraction] 37.5 % 37-47 [facility] Hemoglobin measurementOrdere d By: Michaela Jaramillo on 03-05-2024 Hemoglobin (Bld) [Mass/Vol] 12.3 g/dL 12.0-15.0 [facility] Immature granulocytes/100 WB C Auto (Bld)Ordered By: Michaela Jaramillo on 03-05-2024 Immature granulocytes/100 WBC (Bld) 0.600 % 0.0-0.9 [facility] Comment on above: IG% - Immature Granu locytes (promyelocytes, myelocytes and metamyelocytes) > 1% indicates that a LEFT SHIFT is Present. Lymphocytes Auto (Unsp spec) [#/Vol]Ordered By: Michaela Jaramillo on 03-05-2024 Lymphocytes (Bld) [#/Vol] 1.00 10*3/uL 0.83-4.51 [facility] Lymphocytes/100 WBC Auto (Un sp spec)Ordered By: Michaela Jaramillo on 03-05-2024 Lymphocytes/100 WBC (Bld) 18.8 % Low 19-41 [facility] MCV (mean corpuscular volume ) determinationOrdered By: Michaela Jaramillo on 03-05-2024 MCV (RBC) [Entitic vol] 97.9 fL 81-[address] [facility] Magnesiumon 03-05-2024 Magnesium [Mass/Vol] 2.1 mg/dL Normal 1.6-2.6 [facility] Comment on above: Order Comment: 207.1 Performed By: #### L 100.0100, L501.5200, L500.3856, L501.6710 #### [facility] [address] [place], [address] Magnesium measurementOrdered By: Michaela Jaramillo on 03-05-2024 Magnesium [Mass/Vol] 2.1 mg/dL 1.6-2.6 [facility] Mean corpuscular hemoglobin (MCH) determinationOrdered By: Michaela Jaramillo on 03-05-2024 MCH (RBC) [Entitic mass] 32.1 pg High 27.0-32.0 [facility] Mean corpuscular hemoglobin concentration (MCHC) determinationOrdered By: Michaela Jaramillo on 03-05-2024 MCHC (RBC) [Mass/Vol] 32.8 g/dL 32-36 [facility] Mean platelet volume determi nationOrdered By: Michaela Jaramillo on 03-05-2024 Platelet mean volume (Bld) [Entitic vol] 9.1 fL 6.2-12.0 [facility] Monocyte percentageOrdered B y: Michaela Jaramillo on 03-05-2024 Monocytes/100 WBC (Bld) 14.7 % High 0-[address] [facility] Neutrophil percentageOrdered By: Michaela Jaramillo on 03-05-2024 Neutrophils/100 WBC (Bld) 64.4 % 47-70 [facility] Nucleated red blood cell per centageOrdered By: Michaela Jaramillo on 03-05-2024 Nucleated RBC/100 WBC (Bld) [Ratio] 0 % 0-5 [facility] Platelet countOrdered By: Steven Jaramillo on 03-05-2024 Platelets (Bld) [#/Vol] 275 10*3/uL 150-450 [facility] Potassium measurementOrdered By: Michaela Jaramillo on 03-05-2024 Potassium [Moles/Vol] 3.6 mmol/L 3.5-5.1 [facility] RBC Auto (Bld) [#/Vol]Ordere d By: Michaela Jaramillo on 03-05-2024 RBC (Bld) [#/Vol] 3.83 10*6/uL Low 4.2-5.4 [facility] Serum anion gap measurementO rdered By: Michaela Jaramillo on 03-05-2024 Anion gap [Moles/Vol] 6 mmol/L 5-15 [facility] Serum or plasma calcium olive urement (mass/volume)Ordered By: Michaela Jaramillo on 03-05-2024 Calcium [Mass/Vol] 9.1 mg/dL 8.5-10.[address] [facility] Serum or plasma creatinine m easurement (mass/volume)Ordered By: Michaela Jaramillo on 03-05-2024 Creatinine [Mass/Vol] 0.87 mg/dL 0.55-1.02 [facility] Comment on above: The validity of the calculated GFR & GFRAA in patients over 70 years has not been determined. Clinical correlation is essential. Serum or plasma urea nitroge n measurement (mass/volume)Ordered By: Michaela Jaramillo on 03-05-2024 Urea nitrogen [Mass/Vol] 13 mg/dL 7-18 [facility] Sodium levelOrdered By: Jaycee Jaramillo on 03-05-2024 Sodium [Moles/Vol] 138 mmol/L 136-[address] [facility] White blood cell (WBC) count Ordered By: Michaela Jaramillo on 03-05-2024 WBC (Bld) [#/Vol] 5.3 10*3/uL 4.4-11.[address] [facility] .Auto Diffon 03-02-2024 Basophil, Absolute 0.1 10 3/mcL Normal 0.0-0.3 [facility] Comment on above: Performed By: #### A DIFF, GFR, CBC, BMP, ANEU #### [address] [address] Eosinophil, Absolute 0.0 10 3/mcL Normal 0.0-0.7 [facility] Comment on above: Performed By: #### A DIFF, GFR, CBC, BMP, ANEU #### [address] [address] Lymphocyte, Absolute 0.7 10 3/mcL Low 0.9-4.3 [facility] Comment on above: Performed By: #### A DIFF, GFR, CBC, BMP, ANEU #### [address] [address] Monocyte, Absolute 0.8 10 3/mcL Normal 0.1-1.4 [facility] Comment on above: Performed By: #### A DIFF, GFR, CBC, BMP, ANEU #### [address] [address] .Auto DiffOrdered By: SYSTEM SYSTEM on 03-02-2024 Basophils/100 WBC (Bld) 0.7 % Normal 0.0-2.5 [facility]flow SS Comment on above: Performed By: #### A DIFF, GFR, CBC, BMP, ANEU #### [address] [address] Eosinophils/100 WBC (Bld) 0.5 % Normal 0.0-6.0 [facility] SS Comment on above: Performed By: #### A DIFF, GFR, CBC, BMP, ANEU #### [address] [address] Lymphocytes/100 WBC (Bld) 8.4 % Low 20.0-40.0 [facility] Comment on above: Performed By: #### A DIFF, GFR, CBC, BMP, ANEU #### [address] [address] Monocytes/100 WBC (Bld) 9.9 % Normal 2.0-13.0 [facility] Comment on above: Performed By: #### A DIFF, GFR, CBC, BMP, ANEU #### [address] [address] Neutrophils/100 WBC (Bld) 80.5 % High 50.0-75.0 [facility] Comment on above: Performed By: #### A DIFF, GFR, CBC, BMP, ANEU #### [address] [address] .GFRon 03-02-2024 GFR Non- >60 Normal [facility] Comment on above: Result Comment: GFR Population mean for , Non- Americans Ages 20-29 = 116 mL/min/1.73 sq.m. Ages 30-39 = 107 mL/min/1.73 sq.m. Ages 40-49 = 99 mL/min/1.73 sq.m. Ages 50-59 = 93 mL/min/1.73 sq.m. Ages 60-69 = 85 mL/min/1.73 sq.m. Ages 70+ = 75 mL/min/1.73 sq.m. Chronic Kidney Disease: Less than 60 mL/min/1.73 square meters End Stage Renal Disease: Less than 15 mL/min/1.73 square meters Performed By: #### A DIFF, GFR, CBC, BMP, ANEU #### [address] [address] GFR >60 Normal [facility] Comment on above: Result Comment: GFR Population mean for , Non- Americans Ages 20-29 = 116 mL/min/1.73 sq.m. Ages 30-39 = 107 mL/min/1.73 sq.m. Ages 40-49 = 99 mL/min/1.73 sq.m. Ages 50-59 = 93 mL/min/1.73 sq.m. Ages 60-69 = 85 mL/min/1.73 sq.m. Ages 70+ = 75 mL/min/1.73 sq.m. Chronic Kidney Disease: Less than 60 mL/min/1.73 square meters End Stage Renal Disease: Less than 15 mL/min/1.73 square meters Performed By: #### A DIFF, GFR, CBC, BMP, ANEU #### [address] [address] .NEUABSon 03-02-2024 Neutrophil, Absolute 6.4 10 3/mcL Normal 2.3-8.1 [facility] Comment on above: Performed By: #### A DIFF, GFR, CBC, BMP, ANEU #### [address] [address] CBCOrdered By: SYSTEM SYSTEM on 03-02-2024 Erythrocyte distribution width (RBC) [Ratio] 13.1 % Normal 11.5-15.5 [facility] Comment on above: Performed By: #### A DIFF, GFR, CBC, BMP, ANEU #### [place] [address] Hematocrit (Bld) [Volume fraction] 38.4 % Normal 34.0-46.0 [facility] Comment on above: Performed By: #### A DIFF, GFR, CBC, BMP, ANEU #### [place] [id number] MCH (RBC) [Entitic mass] 33.6 pg High 27.0-33.0 [facility] Comment on above: Performed By: #### A DIFF, GFR, CBC, BMP, ANEU #### [place] [address] MCHC 35.2 G/dL Normal 32.0-36.0 [facility] Comment on above: Performed By: #### A DIFF, GFR, CBC, BMP, ANEU #### [place] [address] MCV (RBC) [Entitic vol] 95.5 fL Normal 80.0-99.0 A [facility]flow SS Comment on above: Performed By: #### A DIFF, GFR, CBC, BMP, ANEU #### [place] [address] Platelet mean volume (Bld) [Entitic vol] 7.0 fL Normal 6.6-10.5 [facility] Comment on above: Performed By: #### A DIFF, GFR, CBC, BMP, ANEU #### [place] [id number] CBCon 03-02-2024 Hgb 13.5 G/dL Normal 12.0-16.0 [facility] Comment on above: Performed By: #### A DIFF, GFR, CBC, BMP, ANEU #### [place] [id number] Platelet 333 10 3/mcL Normal 150-450 [facility] Comment on above: Performed By: #### A DIFF, GFR, CBC, BMP, ANEU #### [place] [id number] RBC 4.02 10 6/mcL Low 4.10-5.30 [facility] Comment on above: Performed By: #### A DIFF, GFR, CBC, BMP, ANEU #### [place] [id number] WBC 8.0 10 3/mcL Normal 4.5-10.8 [facility] Comment on above: Performed By: #### A DIFF, GFR, CBC, BMP, ANEU #### [place] [id number] CMPon 03-02-2024 Albumin Level 3.2 G/dL Normal 3.2-4.8 [facility] Comment on above: Performed By: #### A DIFF, GFR, CBC, BMP, ANEU #### [place] [address] ALT [Catalytic activity/Vol] 22 U/L Normal 10-49 [facility] Comment on above: Performed By: #### A DIFF, GFR, CBC, BMP, ANEU #### [place] [address] Bili Total 0.60 mg/dL Normal 0.20-1.20 [facility] Comment on above: Result Comment: Use of this assay is not recommended for patients undergoing treatment with eltrombopag due to the potential for falsely elevated results. Performed By: #### A DIFF, GFR, CBC, BMP, ANEU #### [place] [address] BUN/Creatinine Ratio 17.3 ratio Normal 10.0-22.0 [facility] Comment on above: Performed By: #### A DIFF, GFR, CBC, BMP, ANEU #### [place] [address] Total Protein 6.9 G/dL Normal 5.7-8.2 [facility] Comment on above: Performed By: #### A DIFF, GFR, CBC, BMP, ANEU #### [place] [address] CMPOrdered By: SYSTEM SYSTEM on 03-02-2024 Albumin/Globulin [Mass ratio] 0.9 {ratio} Normal 0.9-1.6 [facility] Comment on above: Performed By: #### A DIFF, GFR, CBC, BMP, ANEU #### [place] [address] ALP [Catalytic activity/Vol] 125 U/L Normal 38-126 [facility] ADM SS Comment on above: Performed By: #### A DIFF, GFR, CBC, BMP, ANEU #### [address] [address] AST [Catalytic activity/Vol] 19 U/L Normal 8-34 [facility] SS Comment on above: Performed By: #### A DIFF, GFR, CBC, BMP, ANEU #### [address] [address] Calcium [Mass/Vol] 9.5 mg/dL Normal 8.7-10.4 [facility] SS Comment on above: Performed By: #### A DIFF, GFR, CBC, BMP, ANEU #### [address] [address] Chloride [Moles/Vol] 104 mmol/L Normal 98-110 AH A DM SS Comment on above: Performed By: #### A DIFF, GFR, CBC, BMP, ANEU #### [place] [id number] CO2 [Moles/Vol] 28 mmol/L Normal 22-32 [facility]M SS Comment on above: Performed By: #### A DIFF, GFR, CBC, BMP, ANEU #### [place] [id number] Creatinine [Mass/Vol] 0.75 mg/dL Normal 0.50-1.20 [facility]M SS Comment on above: Interpretive Data: T esting performed on [employer] CH analyzer using enzymatic creatinine methodology. Result Comment: Test ing performed on [employer] CH analyzer using enzymatic creatinine methodology. Performed By: #### A DIFF, GFR, CBC, BMP, ANEU #### [address] [address] Electrolyte Balance 9.0 mEq/L Normal 4.0-15.0 AH AD M SS Comment on above: Performed By: #### A DIFF, GFR, CBC, BMP, ANEU #### [place] [id number] Globulin 3.7 G/dL Normal 1.5-3.8 [facility]M SS Comment on above: Performed By: #### A DIFF, GFR, CBC, BMP, ANEU #### [address] [address] Glucose [Mass/Vol] 164 mg/dL High 82-115 [facility] ADM SS Comment on above: Performed By: #### A DIFF, GFR, CBC, BMP, ANEU #### [place] [id number] Potassium [Moles/Vol] 4.0 mmol/L Normal 3.5-5.0 [facility] ADM SS Comment on above: Performed By: #### A DIFF, GFR, CBC, BMP, ANEU #### [place] [id number] Sodium [Moles/Vol] 141 mmol/L Normal 136-145 [facility] ADM SS Comment on above: Performed By: #### A DIFF, GFR, CBC, BMP, ANEU #### [place] [address] Urea nitrogen [Mass/Vol] 13.0 mg/dL Normal 8.0-22.0 [facility] ADM SS Comment on above: Performed By: #### A DIFF, GFR, CBC, BMP, ANEU #### [place] [address] HEPACon 03-02-2024 Hep A IgM Ab Non-Reactive Normal Non-Reactive [facility] Comment on above: Performed By: #### A DIFF, GFR, CBC, BMP, ANEU #### [place] [address] Hep A IgM Ab Int Normal [facility] Comment on above: Result Comment: No s erological evidence of a current Hepatitis A infection. See Interp Performed By: #### A DIFF, GFR, CBC, BMP, ANEU #### [place] [address] Hep B Core IgM Ab Non-Reactive Normal Non-Reactive [facility] Comment on above: Performed By: #### A DIFF, GFR, CBC, BMP, ANEU #### [place] [address] Hep B Core IgM Ab Int Normal [facility] Comment on above: Result Comment: Samp les with a value < 0.80 Index are considered nonreactive (negative) for IgM antibodies to hepatitis B core antigen. See Interp Performed By: #### A DIFF, GFR, CBC, BMP, ANEU #### [place] [address] Hep B Surf Ag Non-Reactive Normal Non-Reactive [facility] Comment on above: Performed By: #### A DIFF, GFR, CBC, BMP, ANEU #### [facility] [address] [place] [address] Hep C Ab Non-Reactive Normal Non-Reactive [facility] Comment on above: Performed By: #### A DIFF, GFR, CBC, BMP, ANEU #### [place] [address] Hep C Ab Int Normal [facility] Comment on above: Result Comment: Nonr eactive: Samples with a value < 0.80 are considered nonreactive (negative) for antibodies to HCV. A negative test result does not exclude the possibility of exposure to or infection with HCV. HCV antibodies may be undetectable in some stages of the infection and in some clinical conditions. See Interp Performed By: #### A DIFF, GFR, CBC, BMP, ANEU #### [place] [address] LABORATORYOrdered By: SYSTEM SYSTEM on 03-02-2024 Albumin BCP dye [Mass/Vol] 3.2 G/dL Normal 3.2 - 4.8 G/dL ADM SS ALT No additional P-5'-P [Catalytic activity/Vol] 22 U/L Normal 10 - 49 U/L ADM SS Basophils (Bld) [#/Vol] 0.1 103/mcL Normal 0.0 - 0.3 10^3/mcL Workflow SS Bilirubin [Mass/Vol] 0.60 mg/dL Normal 0.20 - 1.20 mg/dL ADM SS Comment on above: Interpretive Data: U se of this assay is not recommended for patients undergoing treatment with eltrombopag due to the potential for falsely elevated results. Eosinophils (Bld) [#/Vol] 0.0 103/mcL Normal 0.0 - 0.7 10^3/mcL Workflow SS GFR/1.73 sq M.predicted among blacks MDRD (S/P/Bld) [Vol rate/Area] ml/min/1.73sqm Invalid Interpretation Code ADM SS Comment on above: Interpretive Data: GFR Population mean for , Non- Americans Ages 20-29 = 116 mL/min/1.73 sq.m. Ages 30-39 = 107 mL/min/1.73 sq.m. Ages 40-49 = 99 mL/min/1.73 sq.m. Ages 50-59 = 93 mL/min/1.73 sq.m. Ages 60-69 = 85 mL/min/1.73 sq.m. Ages 70+ = 75 mL/min/1.73 sq.m. Chronic Kidney Disease: Less than 60 mL/min/1.73 square meters End Stage Renal Disease: Less than 15 mL/min/1.73 square meters GFR/1.73 sq M.predicted among non-blacks MDRD (S/P/Bld) [Vol rate/Area] ml/min/1.73sqm Invalid Interpretation Code ADM SS Comment on above: Interpretive Data: GFR Population mean for , Non- Americans Ages 20-29 = 116 mL/min/1.73 sq.m. Ages 30-39 = 107 mL/min/1.73 sq.m. Ages 40-49 = 99 mL/min/1.73 sq.m. Ages 50-59 = 93 mL/min/1.73 sq.m. Ages 60-69 = 85 mL/min/1.73 sq.m. Ages 70+ = 75 mL/min/1.73 sq.m. Chronic Kidney Disease: Less than 60 mL/min/1.73 square meters End Stage Renal Disease: Less than 15 mL/min/1.73 square meters Hemoglobin (Bld) [Mass/Vol] 13.5 G/dL Normal 12.0 - 16.0 G/dL Workflow SS LDH Lactate to pyruvate reaction [Catalytic activity/Vol] 186 1 Normal 120 - 246 U/L ADM SS Lymphocytes (Bld) [#/Vol] 0.7 103/mcL Low 0.9 - 4.3 10^3/mcL AH Workflow SS Monocytes (Bld) [#/Vol] 0.8 103/mcL Normal 0.1 - 1.4 10^3/mcL Workflow SS Neutrophils (Bld) [#/Vol] 6.4 103/mcL Normal 2.3 - 8.1 10^3/mcL Workflow SS Platelets (Bld) [#/Vol] 333 103/mcL Normal 150 - 450 10^3/mcL AH Workflow SS Protein [Mass/Vol] 6.9 G/dL Normal 5.7 - 8.2 G/dL AH ADM SS RBC (Bld) [#/Vol] 4.02 106/mcL Low 4.10 - 5.3 0 10^6/mcL AH Workflow SS Urea nitrogen/Creatinine [Mass ratio] 17.3 ratio Normal 10.0 - 22.0 ratio AH ADM SS WBC (Bld) [#/Vol] 8.0 103/mcL Normal 4.5 - 10.8 10^3/mcL AH Workflow SS LABORATORYOrdered By: Arash Whipple on 03-02-2024 HAV IgM IA Ql Non-Reactive (03/02/24 10:00 AM) Normal Non-Reactive AH ADM SS HAV IgM IA Ql No serological evidence of a current Hepatitis A infection. Invalid Interpretation Code Chemistry S HBV core IgM IA Ql Non-Reactive (03/02/24 10:00 AM) Normal Non-Reactive AH ADM SS HBV core IgM IA Ql Samples with a value < 0.80 Index are considered nonreactive (negative) for IgM antibodies to hepatitis B core antigen. Invalid Interpretation Code Chemistry S HBV surface Ag IA Ql Non-Reactive (03/02/24 10:00 AM) Normal Non-Reactive AH ADM SS HCV Ab IA Ql Non-Reactive (03/02/24 10:00 AM) Normal Non-Reactive AH ADM SS HCV Ab IA Ql Nonreactive: Samples with a value < 0.80 are considered nonreactive (negative) for antibodies to HCV.A negative test result does not exclude the possibility of exposure to or infection with HCV. HCV antibodies may be undetectable in some stages of the infection and in some clinical conditions. Invalid Interpretation Code Chemistry S LDHon 03-02-2024 LDH 186 U/L Normal 120-246 [facility] Comment on above: Performed By: #### A DIFF, GFR, CBC, BMP, ANEU #### [facility] [address] [place] [id number] Basic Metabolic Profile (BMP )on 02-27-2024 BUN/CRE 17.4 RATIO Normal 10-20 [facility] Comment on above: Order Comment: 207.1 Performed By: #### L 100.0100, L501.5200, L500.2500, L501.6710 #### [facility] [address] [place], [address] CA,Total 9.0 mg/dL Normal 8.5-10.1 [facility] Comment on above: Order Comment: .1 Performed By: #### L 100.0100, L501.5200, L500.2500, L501.6710 #### [facility] [address] [place], [address] Chloride [Moles/Vol] 104 mmol/L Normal 98-107 [facility] Comment on above: Order Comment: . Performed By: #### L 100.0100, L501.5200, L500.2500, L501.6710 #### [facility] [address] [place], [address] CO2 [Moles/Vol] 28.0 mmol/L Normal 21.0-32.0 [facility] Comment on above: Order Comment: . Performed By: #### L 100.0100, L501.5200, L500.2500, L501.6710 #### [facility] [address] [place], [address] Creatinine [Mass/Vol] 0.86 mg/dL Normal 0.55-1.02 [facility] Comment on above: Order Comment: .1 Result Comment: The validity of the calculated GFR GFRAA in patients over 70 years has not been determined. Clinical correlation is essential. Performed By: #### L 100.0100, L501.5200, L500.2500, L501.6710 #### [facility] [address] [place], [address] EST GFR - AA 83 mL/min Normal >60 [facility] Comment on above: Order Comment: 207.1 Result Comment: Afri can Bangladeshi GFR Calc Performed By: #### L 100.0100, L501.5200, L500.2500, L501.6710 #### [facility] [address] [place], [address] GAP 8 Normal 5-15 [facility] Comment on above: Order Comment: 207.1 Performed By: #### L 100.0100, L501.5200, L500.2500, L501.6710 #### [facility] [address] [place], [address] GFR/1.73 sq M.predicted among non-blacks MDRD (S/P/Bld) [Vol rate/Area] 68 mL/min/{1.73_m2} Normal >60 [facility] Comment on above: Order Comment: 207.1 Result Comment: Non- GFR Calc Performed By: #### L 100.0100, L501.5200, L500.2500, L501.6710 #### [facility] [address] [place], [address] Glucose [Mass/Vol] 139 mg/dL High 74-[address] [facility] Comment on above: Order Comment: 207.1 Result Comment: Fast ing Glucose result greater than or equal to 126 mg/dL suggests DIABETES MELLITUS per A.D.A. criteria. Performed By: #### L 100.0100, L501.5200, L500.2500, L501.6710 #### [facility] [address] [place], [address] Potassium [Moles/Vol] 3.5 mmol/L Normal 3.5-5.1 [facility] Comment on above: Order Comment: 207.1 Performed By: #### L 100.0100, L501.5200, L500.2500, L501.6710 #### [facility] [address] [place], [address] Sodium [Moles/Vol] 139 mmol/L Normal 136-[address] [facility] Comment on above: Order Comment: 207.1 Performed By: #### L 100.0100, L501.5200, L500.2500, L501.6710 #### [facility] [address] [place], [address] Urea nitrogen [Mass/Vol] 15 mg/dL Normal 7-18 [facility] Comment on above: Order Comment: 207.1 Performed By: #### L 100.0100, L501.5200, L500.2500, L501.6710 #### [facility] [address] [place], [address] Blood urea nitrogen (BUN)/cr eatinine ratioOrdered By: Michaela Jaramillo on 02-27-2024 Urea nitrogen/Creatinine [Mass ratio] 17.4 mg/mg 10- [facility] CBC-Complete Blood Cnt No Di ffon 02-27-2024 Erythrocyte distribution width (RBC) [Ratio] 12.6 % Normal 11.6-14.6 [facility] Comment on above: Order Comment: 207.1 Performed By: #### L 100.0100, L501.5200, L500.2500, L501.6710 #### [facility] [address] [place], [address] Hematocrit (Bld) [Volume fraction] 36.8 % Low 37-47 [facility] Comment on above: Order Comment: 207.1 Performed By: #### L 100.0100, L501.5200, L500.2500, L501.6710 #### [facility] [address] [place], [address] Hemoglobin (Bld) [Mass/Vol] 12.3 g/dL Normal 12.0-15.0 [facility] Comment on above: Order Comment: 207.1 Performed By: #### L 100.0100, L501.5200, L500.2500, L501.6710 #### [facility] [address] [place], [address] MCH (RBC) [Entitic mass] 32.8 pg High 27.0-32.0 [facility] Comment on above: Order Comment: 207.1 Performed By: #### L 100.0100, L501.5200, L500.2500, L501.6710 #### [facility] [address] [place], [address] MCHC (RBC) [Mass/Vol] 33.4 g/dL Normal 32-36 [facility] Comment on above: Order Comment: 207.1 Performed By: #### L 100.0100, L501.5200, L500.2500, L501.6710 #### [facility] [address] [place], [address] MCV (RBC) [Entitic vol] 98.1 fL Normal 81-99 [facility] Comment on above: Order Comment: 207.1 Performed By: #### L 100.0100, L501.5200, L500.2500, L501.6710 #### [facility] [address] [place], [address] Platelet mean volume (Bld) [Entitic vol] 9.1 fL Normal 6.2-12.0 [facility] Comment on above: Order Comment: 207.1 Performed By: #### L 100.0100, L501.5200, L500.2500, L501.6710 #### [facility] [address] [place], [address] Platelets (Bld) [#/Vol] 272 10*3/uL Normal 150-450 [facility] Comment on above: Order Comment: 207.1 Performed By: #### L 100.0100, L501.5200, L500.2500, L501.6710 #### [facility] [address] [place], [address] RBC (Bld) [#/Vol] 3.75 10*6/uL Low 4.2-5.4 [facility] Comment on above: Order Comment: 207.1 Performed By: #### L 100.0100, L501.5200, L500.2500, L501.6710 #### [facility] [address] [place], [address] RDW SD 45.2 fl High 35.1-43.9 [facility] Comment on above: Order Comment: 207.1 Performed By: #### L 100.0100, L501.5200, L500.2500, L501.6710 #### [facility] [address] [place], [address] WBC (Bld) [#/Vol] 5.7 10*3/uL Normal 4.4-11.[address] [facility] Comment on above: Order Comment: 207.1 Performed By: #### L 100.0100, L501.5200, L500.2500, L501.6710 #### [facility] [address] [place], [address] Carbon dioxide measurementOr dered By: Michaela Jaramillo on 02-27-2024 CO2 [Moles/Vol] 28.0 mmol/L 21.0-32.0 [facility] Chloride measurementOrdered By: Michaela Jaramillo on 02-27-2024 Chloride [Moles/Vol] 104 mmol/L 98-107 [facility] Erythrocyte distribution wid th ratioOrdered By: Michaela Jaramillo on 02-27-2024 Erythrocyte distribution width (RBC) [Ratio] 12.6 % 11.6-14.6 [facility] Erythrocyte distribution wid th standard deviationOrdered By: Michaela Jaramillo on 02-27-2024 Erythrocyte distribution width (RBC) [Entitic vol] 45.2 fL High 35.1-43.9 [facility] Estimated glomerular filtrat ion rate (GFR) AmericanOrdered By: Michaela Jaramillo on 02-27-2024 Estimated GFR (MDRD) Amer 83 mL/min >60 [facility] Comment on above: GFR Calc Glomerular filtration rate ( GFR) estimationOrdered By: Michaela Jaramillo on 02-27-2024 Estimated GFR (MDRD) Non-Af Amer 68 mL/min >60 [facility] Comment on above: Non- GFR Calc Glucose measurementOrdered B y: Michaela Jaramillo on 02-27-2024 Glucose [Mass/Vol] 139 mg/dL High 74-[address] [facility] Comment on above: Fasting Glucose resu lt greater than or equal to 126 mg/dL suggests DIABETES MELLITUS per A.D.A. criteria. Hematocrit Auto (Bld) [Volum e fraction]Ordered By: Michaela Jaramillo on 02-27-2024 Hematocrit (Bld) [Volume fraction] 36.8 % Low 37-47 [facility] Hemoglobin measurementOrdere d By: Michaela Jaramillo on 02-27-2024 Hemoglobin (Bld) [Mass/Vol] 12.3 g/dL 12.0-15.0 [facility] MCV (mean corpuscular volume ) determinationOrdered By: Michaela Jaramillo on 02-27-2024 MCV (RBC) [Entitic vol] 98.1 fL 81-[address] [facility] Magnesiumon 02-27-2024 Magnesium [Mass/Vol] 2.1 mg/dL Normal 1.6-2.6 [facility] Comment on above: Order Comment: 207.1 Performed By: #### L 100.0100, L501.5200, L500.2500, L501.6710 #### [facility] [address] [facility] [place], [address] Magnesium measurementOrdered By: Michaela Jaramillo on 02-27-2024 Magnesium [Mass/Vol] 2.1 mg/dL 1.6-2.6 [facility] Mean corpuscular hemoglobin (MCH) determinationOrdered By: Michaela Jaramillo on 02-27-2024 MCH (RBC) [Entitic mass] 32.8 pg High 27.0-32.0 [facility] Mean corpuscular hemoglobin concentration (MCHC) determinationOrdered By: Michaela Jaramillo on 02-27-2024 MCHC (RBC) [Mass/Vol] 33.4 g/dL 32-36 [facility] Mean platelet volume determi nationOrdered By: Michaela Jaramillo on 02-27-2024 Platelet mean volume (Bld) [Entitic vol] 9.1 fL 6.2-12.0 [facility] Platelet countOrdered By: Steven Jaramillo on 02-27-2024 Platelets (Bld) [#/Vol] 272 10*3/uL 150-450 [facility] Potassium measurementOrdered By: Michaela Jaramillo on 02-27-2024 Potassium [Moles/Vol] 3.5 mmol/L 3.5-5.1 [facility] RBC Auto (Bld) [#/Vol]Ordere d By: Michaela Jaramillo on 02-27-2024 RBC (Bld) [#/Vol] 3.75 10*6/uL Low 4.2-5.4 [facility] Serum anion gap measurementO rdered By: Michaela Jaramillo on 02-27-2024 Anion gap [Moles/Vol] 8 mmol/L 5-15 [facility] Serum or plasma calcium olive urement (mass/volume)Ordered By: Michaela Jaramillo on 02-27-2024 Calcium [Mass/Vol] 9.0 mg/dL 8.5-10.[address] [facility] Serum or plasma creatinine m easurement (mass/volume)Ordered By: Michaela Jaramillo on 02-27-2024 Creatinine [Mass/Vol] 0.86 mg/dL 0.55-1.02 [facility] Comment on above: The validity of the calculated GFR & GFRAA in patients over 70 years has not been determined. Clinical correlation is essential. Serum or plasma urea nitroge n measurement (mass/volume)Ordered By: Michaela Jaramillo on 02-27-2024 Urea nitrogen [Mass/Vol] 15 mg/dL 7-18 [facility] Sodium levelOrdered By: Jaycee Jaramillo on 02-27-2024 Sodium [Moles/Vol] 139 mmol/L 136-[address] [facility] White blood cell (WBC) count Ordered By: Michaela Jaramillo on 02-27-2024 WBC (Bld) [#/Vol] 5.7 10*3/uL 4.4-11.[address] [facility] Basic Metabolic Profile (BMP )on 02-20-2024 BUN/CRE 14.9 RATIO Normal 10-20 [facility] Comment on above: Order Comment: 1 Performed By: #### L 501.3620, L500.2500, L100.0100, L3600.5100, L501.4020 #### [facility] [address] [place], [address] CA,Total 9.4 mg/dL Normal 8.5-10.1 [facility] Comment on above: Order Comment: 1 Performed By: #### L 501.3620, L500.2500, L100.0100, L3600.5100, L501.4020 #### [facility] [address] [place], [address] Chloride [Moles/Vol] 104 mmol/L Normal 98-107 [facility] Comment on above: Order Comment: 1 Performed By: #### L 501.3620, L500.2500, L100.0100, L3600.5100, L501.4020 #### [facility] [address] [place], [address] CO2 [Moles/Vol] 28.0 mmol/L Normal 21.0-32.0 [facility] Comment on above: Order Comment: 1 Performed By: #### L 501.3620, L500.2500, L100.0100, L3600.5100, L501.4020 #### [facility] [address] [place], [address] Creatinine [Mass/Vol] 0.87 mg/dL Normal 0.55-1.02 [facility] Comment on above: Order Comment: 1 Result Comment: The validity of the calculated GFR GFRAA in patients over 70 years has not been determined. Clinical correlation is essential. Performed By: #### L 501.3620, L500.2500, L100.0100, L3600.5100, L501.4020 #### [facility] [address] [place], [address] EST GFR - AA 82 mL/min Normal >60 [facility] Comment on above: Order Comment: 1 Result Comment: Afri can Bangl[place] GFR Calc Performed By: #### L 501.3620, L500.2500, L100.0100, L3600.5100, L501.4020 #### [facility] [address] [place], [address] GAP 8 Normal 5-15 [facility] Comment on above: Order Comment: 1 Performed By: #### L 501.3620, L500.2500, L100.0100, L3600.5100, L501.4020 #### [facility] [address] [place], [address] GFR/1.73 sq M.predicted among non-blacks MDRD (S/P/Bld) [Vol rate/Area] 67 mL/min/{1.73_m2} Normal >60 [facility] Comment on above: Order Comment: 1 Result Comment: Non- GFR Calc Performed By: #### L 501.3620, L500.2500, L100.0100, L3600.5100, L501.4020 #### [facility] [address] [place], [address] Glucose [Mass/Vol] 158 mg/dL High 74-[address] [facility] Comment on above: Order Comment: 1 Result Comment: Fast ing Glucose result greater than or equal to 126 mg/dL suggests DIABETES MELLITUS per A.D.A. criteria. Performed By: #### L 501.3620, L500.2500, L100.0100, L3600.5100, L501.4020 #### [facility] [address] [place], [address] Potassium [Moles/Vol] 3.7 mmol/L Normal 3.5-5.1 [facility] Comment on above: Order Comment: 1 Performed By: #### L 501.3620, L500.2500, L100.0100, L3600.5100, L501.4020 #### [facility] [address] [place], [address] Sodium [Moles/Vol] 139 mmol/L Normal 136-[address] [facility] Comment on above: Order Comment: 1 Performed By: #### L 501.3620, L500.2500, L100.0100, L3600.5100, L501.4020 #### [facility] [address] [place], [address] Urea nitrogen [Mass/Vol] 13 mg/dL Normal 7-18 [facility] Comment on above: Order Comment: 1 Performed By: #### L 501.3620, L500.2500, L100.0100, L3600.5100, L501.4020 #### [facility] [address] [place], [address] Blood urea nitrogen (BUN)/cr eatinine ratioOrdered By: Michaela Jaramillo on 02-20-2024 Urea nitrogen/Creatinine [Mass ratio] 14.9 mg/mg 10-20 [facility] CBC-Complete Blood Cnt No Di ffon 02-20-2024 Erythrocyte distribution width (RBC) [Ratio] 12.8 % Normal 11.6-14.6 [facility] Comment on above: Order Comment: 1 Performed By: #### L 501.3620, L500.2500, L100.0100, L3600.5100, L501.4020 #### [facility] [address] [place], [address] Hematocrit (Bld) [Volume fraction] 36.8 % Low 37-47 [facility] Comment on above: Order Comment: 1 Performed By: #### L 501.3620, L500.2500, L100.0100, L3600.5100, L501.4020 #### [facility] [address] [place], [address] Hemoglobin (Bld) [Mass/Vol] 12.3 g/dL Normal 12.0-15.0 [facility] Comment on above: Order Comment: 1 Performed By: #### L 501.3620, L500.2500, L100.0100, L3600.5100, L501.4020 #### [facility] [address] [place], [address] MCH (RBC) [Entitic mass] 32.6 pg High 27.0-32.0 [facility] Comment on above: Order Comment: 1 Performed By: #### L 501.3620, L500.2500, L100.0100, L3600.5100, L501.4020 #### [facility] [address] [place], [address] MCHC (RBC) [Mass/Vol] 33.4 g/dL Normal 32-36 [facility] Comment on above: Order Comment: 1 Performed By: #### L 501.3620, L500.2500, L100.0100, L3600.5100, L501.4020 #### [facility] [address] [place], [address] MCV (RBC) [Entitic vol] 97.6 fL Normal 81-[address] [facility] Comment on above: Order Comment: 1 Performed By: #### L 501.3620, L500.2500, L100.0100, L3600.5100, L501.4020 #### [facility] [address] [place], [address] Platelet mean volume (Bld) [Entitic vol] 9.0 fL Normal 6.2-12.0 [facility] Comment on above: Order Comment: 1 Performed By: #### L 501.3620, L500.2500, L100.0100, L3600.5100, L501.4020 #### [facility] [address] [place], [address] Platelets (Bld) [#/Vol] 192 10*3/uL Normal 150-450 [facility] Comment on above: Order Comment: 1 Performed By: #### L 501.3620, L500.2500, L100.0100, L3600.5100, L501.4020 #### [facility] [address] [place], [address] RBC (Bld) [#/Vol] 3.77 10*6/uL Low 4.2-5.4 [facility] Comment on above: Order Comment: 1 Performed By: #### L 501.3620, L500.2500, L100.0100, L3600.5100, L501.4020 #### [facility] [address] [place], [address] RDW SD 45.2 fl High 35.1-43.9 [facility] Comment on above: Order Comment: 1 Performed By: #### L 501.3620, L500.2500, L100.0100, L3600.5100, L501.4020 #### [facility] [address] [place], [address] WBC (Bld) [#/Vol] 3.7 10*3/uL Low 4.4-11.[address] [facility] Comment on above: Order Comment: 1 Performed By: #### L 501.3620, L500.2500, L100.0100, L3600.5100, L501.4020 #### [facility] [address] [place], [address] Carbon dioxide measurementOr dered By: Michaela Jaramillo on 02-20-2024 CO2 [Moles/Vol] 28.0 mmol/L 21.0-32.0 [facility] Chloride measurementOrdered By: Michaela Jaramillo on 02-20-2024 Chloride [Moles/Vol] 104 mmol/L 98-107 [facility] Erythrocyte distribution wid th ratioOrdered By: Michaela Jaramillo on 02-20-2024 Erythrocyte distribution width (RBC) [Ratio] 12.8 % 11.6-14.6 [facility] Erythrocyte distribution wid th standard deviationOrdered By: Michaela Jaramillo on 02-20-2024 Erythrocyte distribution width (RBC) [Entitic vol] 45.2 fL High 35.1-43.9 [facility] Estimated glomerular filtrat ion rate (GFR) AmericanOrdered By: Michaela Jaramillo on 02-20-2024 Estimated GFR (MDRD) Amer 82 mL/min >60 [facility] Comment on above: GFR Calc Final Surgical Pathology Rep sánchez 02-20-2024 Final Surgical Pathology Report . Pathology Reports Accession: Collected Date/Time: Received Date/Time: Pathologist: [id number] 01/30/2024 11:44 EST 01/31/2024 07:47 IRENE CHAHAL MD Final Surgical Pathology Report DIAGNOSIS: A. 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 See below for summary of molecular testing results. B. 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 CELLULARITY, NOT DIAGNOSTIC OF NEOPLASM COMMENT: [facility], [address] [address] [facility] xT Results: No potentially actionable variants and no reportable treatment options found. Genomic Variants Biologically Relevant: PTEN c.634+1del, TERT c.-146C>T Variant-Promoter mutation, EGFR p.L62R, CDKN2A Copy number loss, CDKN2B Copy number loss, ERRFI1 Copy number loss Tumor / Normal matched analysis (Potential germline) No normal sample was received, therefore tumor/normal matched analysis was not performed. Immunotherapy markers Tumor Mutational Jenners 2.6 m/MB Microsatellite Instability Status Stable Treatment Implications No reportable treatment options found. Genomic Variants Potentially Actionable/ Biologically Relevant -No reportable pathogenic variants were found [facility] RNA Results: Molecular Profile Expression Details: CDKN2A Underexpressed, AR Overexpressed, WT1 Overexpressed 1p/19q FISH Co-deletion Interpretation: 1p/19q Co-deletion: NOT DETECTED (SEE BELOW) The FISH study revealed the following: Ratio of 1.0 for 1p36/1q25 (normal>0.8), ratio of 1.0 for CEP1/1q25 (normal>0.8), ration of 1.0 for 19q13/19p13 (normal>0.8) and ratio of 0.9 for CEP 19/19p13 (normal>0.8). Gain in references probes is observed (1p25, 38.0%; normal 48.0%; normal MGMT Gene Promoter Methylation Analysis Result: DETECTED Complete Report Scanned into chart. Pathology Reports Accession: Collected Date/Time: Received Date/Time: Pathologist: [id number] 01/30/2024 11:44 EST 01/31/2024 07:47 IRENE CHAHAL MD CLINICAL INFORMATION: Procedure: RIGHT PARIETAL CRANIOTOMY FOR DEBULKING OF TUMOR Preoperative diagnosis: BRAIN TUMOR Postoperative diagnosis: BRAIN TUMOR SPECIMEN: A RIGHT PARIETAL MASS B RIGHT PARIETAL MASS NON-ENHANCING GROSS DESCRIPTION: All parts labelled with patient name and [id number] A. Received in formalin labelled right parietal mass Are multiple de la fuente-white hemorrhagic tissue fragments aggregating to 4.5 x 4.0 x 0.7 cm. TS-4 B. Received in formalin labelled right parietal mass non enhancing Is a de la fuente-white firm portion of brain tissue measuring 1.3 x 1.1 x 0.6 cm. The tissue is bisected longitudinally. TS-1 Nasrin Crystal, Pathologists' Caustic Purification Operator (ASCP) Performed by NASRIN CRYSTAL MICROSCOPIC DESCRIPTION: The microscopic examination is performed, except in the case of Gross Only. Electronically Signed by Pathology Report verified by [facility] IRENE ALBERTO Sign out Date: 02/20/2024 08:43 Performing Lab: [facility], [address] [place] [address] Pathology Dept Disclaimer If ancillary studies were utilized, the following Laboratory Developed Test (LDT) disclaimer will apply: Under CLIA requirements, [facility] is qualified to perform high complexity testing. For all ancillary stains, positive and negative controls stain appropriately. Performance characteristics of immunohistochemical and chromogenic in-situ hybridization tests have been determined by [facility]. These tests are used for clinical purposes, They should not be regarded as investigational or for research. Preliminary Report Preliminary Discussion A. 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 Final Integrated diagnosis will be completed when all pending results of molecular workup, including 1p/19q, NGS and MGMT methylation become available. B. 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 CELLULARITY, NOT DIAGNOSTIC OF NEOPLASM Pathology Reports Accession: Collected Date/Time: Received Date/Time: Pathologist: [id number] 01/30/2024 11:44 EST 01/31/2024 07:47 IRENE CHAHAL MD Electronically Signed by SHARAN ALBERTO Sign out Date: 02/01/2024 09:49 Performing (more content not included)... Normal [facility] Glomerular filtration rate ( GFR) estimationOrdered By: Michaela Jaramillo on 02-20-2024 Estimated GFR (MDRD) Non-Af Amer 67 mL/min >60 [facility] Comment on above: Non- GFR Calc Glucose measurementOrdered B y: Michaela Jaramillo on 02-20-2024 Glucose [Mass/Vol] 158 mg/dL High 74-[address] [facility] Comment on above: Fasting Glucose resu lt greater than or equal to 126 mg/dL suggests DIABETES MELLITUS per A.D.A. criteria. Hematocrit Auto (Bld) [Volum e fraction]Ordered By: Michaela Jaramillo on 02-20-2024 Hematocrit (Bld) [Volume fraction] 36.8 % Low 37-47 [facility] Hemoglobin measurementOrdere d By: Michaela Jaramillo on 02-20-2024 Hemoglobin (Bld) [Mass/Vol] 12.3 g/dL 12.0-15.0 [facility] KEPPRA (LEVETIRACETAM)on KEPPRA 14.0 ug/mL Normal 10.0-40.0 [facility] Comment on above: Order Comment: 207.1 Result Comment: Perf ormed at: [facility] - [facility] [address] [id number] Tailer In: Altagracia Rocha MD, Phone: [phone] Performed By: #### L 100.0100, L501.5200, L500.2500, L501.6710 #### [facility] [address] [place], [place], [id number] MCV (mean corpuscular volume ) determinationOrdered By: Michaela Jaramillo on 02-20-2024 MCV (RBC) [Entitic vol] 97.6 fL 81-[address] [facility] Magnesiumon 02-20-2024 Magnesium [Mass/Vol] 2.0 mg/dL Normal 1.6-2.6 [facility] Comment on above: Order Comment: 1 Performed By: #### L 501.3620, L500.2500, L100.0100, L3600.5100, L501.4020 #### [facility] [address] [place], [place], [id number] Magnesium measurementOrdered By: Michaela Jaramillo on 02-20-2024 Magnesium [Mass/Vol] 2.0 mg/dL 1.6-2.6 [facility] Mean corpuscular hemoglobin (MCH) determinationOrdered By: Michaela Jaramillo on 02-20-2024 MCH (RBC) [Entitic mass] 32.6 pg High 27.0-32.0 [facility] Mean corpuscular hemoglobin concentration (MCHC) determinationOrdered By: Michaela Jaramillo on 02-20-2024 MCHC (RBC) [Mass/Vol] 33.4 g/dL 32-36 [facility] Mean platelet volume determi nationOrdered By: Michaela Jaramillo on 02-20-2024 Platelet mean volume (Bld) [Entitic vol] 9.0 fL 6.2-12.0 [facility] Platelet countOrdered By: Steven Jaramillo on 02-20-2024 Platelets (Bld) [#/Vol] 192 10*3/uL 150-450 [facility] Potassium measurementOrdered By: Mihcaela Jaramillo on 02-20-2024 Potassium [Moles/Vol] 3.7 mmol/L 3.5-5.1 [facility] RBC Auto (Bld) [#/Vol]Ordere d By: Michaela Jaramillo on 02-20-2024 RBC (Bld) [#/Vol] 3.77 10*6/uL Low 4.2-5.4 [facility] Serum anion gap measurementO rdered By: Michaela Jaramillo on 02-20-2024 Anion gap [Moles/Vol] 8 mmol/L 5-15 [facility] Serum or plasma calcium olive urement (mass/volume)Ordered By: Michaela Jaramillo on 02-20-2024 Calcium [Mass/Vol] 9.4 mg/dL 8.5-10.[address] [facility] Serum or plasma creatinine m easurement (mass/volume)Ordered By: Michaela Jaramillo on 02-20-2024 Creatinine [Mass/Vol] 0.87 mg/dL 0.55-1.02 [facility] Comment on above: The validity of the calculated GFR & GFRAA in patients over 70 years has not been determined. Clinical correlation is essential. Serum or plasma urea nitroge n measurement (mass/volume)Ordered By: Michaela aJramillo on 02-20-2024 Urea nitrogen [Mass/Vol] 13 mg/dL - [facility] Sodium levelOrdered By: Jaycee Jaramillo on 02-20-2024 Sodium [Moles/Vol] 139 mmol/L 136-[address] [facility] White blood cell (WBC) count Ordered By: Michaela Jaramillo on 02-20-2024 WBC (Bld) [#/Vol] 3.7 10*3/uL Low 4.4-11.[address] [facility] LevetiracetamOrdered By: Cody Jaramillo on 02-15-2024 Levetiracetam (Keppra) Level 14.0 ug/mL 10.0-40.0 [facility] Comment on above: Performed at: [address] [id number] Director: Altagracia Rocha MD, Phone: [phone] [id number] DOrdered By: Jose Juan Jaramillo on 02-13-2024 Vitamin D 25-Hydroxy 18.4 ng/mL [facility] Comment on above: Vitamin D 25(OH) Sta tus Range Deficiency <20 ng/mL (50nmol/L) Insufficiency 20 - 30 ng/mL (50 - 75 nmol/L) Sufficiency 30 - 100 ng/mL (75 - 250 nmol/L) Toxicity >100 ng/mL (>250 nmol/L) Absolute neutrophil countOrd ered By: Michaela Jaramillo on 02-13-2024 Neutrophils (Bld) [#/Vol] 5.0 10*3/uL 2.0-7.7 [facility] Basic Metabolic Profile (BMP )on 02-13-2024 BUN/CRE 12.2 RATIO Normal 10-20 [facility] Comment on above: Order Comment: 207.1 Performed By: #### L 100.0100, L501.5200, L500.2500, L501.6710 #### [facility] [address] [place], [address] CA,Total 8.7 mg/dL Normal 8.5-10.1 [facility] Comment on above: Order Comment: 207.1 Performed By: #### L 100.0100, L501.5200, L500.2500, L501.6710 #### [facility] [address] [place], [address] Chloride [Moles/Vol] 104 mmol/L Normal 98-107 [facility] Comment on above: Order Comment: 207.1 Performed By: #### L 100.0100, L501.5200, L500.2500, L501.6710 #### [facility] [address] [place], [address] CO2 [Moles/Vol] 28.0 mmol/L Normal 21.0-32.0 [facility] Comment on above: Order Comment: 207.1 Performed By: #### L 100.0100, L501.5200, L500.2500, L501.6710 #### [facility] [address] [place], [address] Creatinine [Mass/Vol] 0.98 mg/dL Normal 0.55-1.02 [facility] Comment on above: Order Comment: 207.1 Result Comment: The validity of the calculated GFR GFRAA in patients over 70 years has not been determined. Clinical correlation is essential. Performed By: #### L 100.0100, L501.5200, L500.2500, L501.6710 #### [facility] [address] [place], [address] EST GFR - AA 71 mL/min Normal >60 [facility] Comment on above: Order Comment: 207.1 Result Comment: Afri can Bangladeshi GFR Calc Performed By: #### L 100.0100, L501.5200, L500.2500, L501.6710 #### [facility] [address] [place], [address] GAP 6 Normal 5-15 [facility] Comment on above: Order Comment: 207.1 Performed By: #### L 100.0100, L501.5200, L500.2500, L501.6710 #### [facility] [address] [place], [address] GFR/1.73 sq M.predicted among non-blacks MDRD (S/P/Bld) [Vol rate/Area] 59 mL/min/{1.73_m2} Low >60 [facility] Comment on above: Order Comment: 207.1 Result Comment: Non- GFR Calc Performed By: #### L 100.0100, L501.5200, L500.2500, L501.6710 #### [facility] [address] [place], [address] Glucose [Mass/Vol] 192 mg/dL High 74-[address] [facility] Comment on above: Order Comment: 207.1 Result Comment: Fast ing Glucose result greater than or equal to 126 mg/dL suggests DIABETES MELLITUS per A.D.A. criteria. Performed By: #### L 100.0100, L501.5200, L500.2500, L501.6710 #### [facility] [address] [place], [address] Potassium [Moles/Vol] 3.8 mmol/L Normal 3.5-5.1 [facility] Comment on above: Order Comment: 207.1 Performed By: #### L 100.0100, L501.5200, L500.2500, L501.6710 #### [facility] [address] [place], [address] Sodium [Moles/Vol] 138 mmol/L Normal 136-[address] [facility] Comment on above: Order Comment: 207.1 Performed By: #### L 100.0100, L501.5200, L500.2500, L501.6710 #### [facility] [address] [place], [address] Urea nitrogen [Mass/Vol] 12 mg/dL Normal 7-18 [facility] Comment on above: Order Comment: 207.1 Performed By: #### L 100.0100, L501.5200, L500.2500, L501.6710 #### [facility] [address] [place], [address] Basophil percentageOrdered B y: Michaela Jaramillo on 02-13-2024 Basophils/100 WBC (Bld) 0.4 % 0-[address] [facility] Blood urea nitrogen (BUN)/cr eatinine ratioOrdered By: Michaela Jaramillo on 02-13-2024 Urea nitrogen/Creatinine [Mass ratio] 12.2 mg/mg 10-20 [facility] CBC W/Diff, Automatedon 12- Absolute Lymph 0.98 X10 3/uL Normal 0.83-4.51 [facility] Comment on above: Order Comment: 207.1 Performed By: #### L 100.0100, L501.5200, L500.2500, L501.6710 #### [facility] [address] [place], [address] Absolute Neut 5.0 X10 3/uL Normal 2.0-7.7 [facility] Comment on above: Order Comment: 207.1 Performed By: #### L 100.0100, L501.5200, L500.2500, L501.6710 #### [facility] [address] [place], [address] Basophils/100 WBC (Bld) 0.4 % Normal 0-[address] [facility] Comment on above: Order Comment: 207.1 Performed By: #### L 100.0100, L501.5200, L500.2500, L501.6710 #### [facility] [address] [place], [address] Eosinophils/100 WBC (Bld) 3.1 % Normal 0-5 [facility] Comment on above: Order Comment: 207.1 Performed By: #### L 100.0100, L501.5200, L500.2500, L501.6710 #### [facility] [address] [place], [address] Erythrocyte distribution width (RBC) [Ratio] 12.8 % Normal 11.6-14.6 [facility] Comment on above: Order Comment: 207.1 Performed By: #### L 100.0100, L501.5200, L500.2500, L501.6710 #### [facility] [address] [place], [address] Hematocrit (Bld) [Volume fraction] 36.2 % Low 37-47 [facility] Comment on above: Order Comment: 207.1 Performed By: #### L 100.0100, L501.5200, L500.2500, L501.6710 #### [facility] [address] [place], [address] Hemoglobin (Bld) [Mass/Vol] 12.1 g/dL Normal 12.0-15.0 [facility] Comment on above: Order Comment: 207.1 Performed By: #### L 100.0100, L501.5200, L500.2500, L501.6710 #### [facility] [address] [place], [address] IG% 0.900 Normal 0.0-0.9 [facility] Comment on above: Order Comment: 207.1 Result Comment: IG% - Immature Granulocytes (promyelocytes, myelocytes and metamyelocytes) > 1% indicates that a LEFT SHIFT is Present. Performed By: #### L 100.0100, L501.5200, L500.2500, L501.6710 #### [facility] [address] [place], [address] Lymphocytes/100 WBC (Bld) 14.0 % Low 19-41 [facility] Comment on above: Order Comment: .1 Performed By: #### L 100.0100, L501.5200, L500.2500, L501.6710 #### [facility] [address] [place], [address] MCH (RBC) [Entitic mass] 33.2 pg High 27.0-32.0 [facility] Comment on above: Order Comment: 207.1 Performed By: #### L 100.0100, L501.5200, L500.2500, L501.6710 #### [facility] [address] [place], [address] MCHC (RBC) [Mass/Vol] 33.4 g/dL Normal 32-36 [facility] Comment on above: Order Comment: 207.1 Performed By: #### L 100.0100, L501.5200, L500.2500, L501.6710 #### [facility] [address] [place], [address] MCV (RBC) [Entitic vol] 99.2 fL High 81-[address] [facility] Comment on above: Order Comment: 207.1 Performed By: #### L 100.0100, L501.5200, L500.2500, L501.6710 #### [facility] [address] [place], [address] Monocytes/100 WBC (Bld) 9.7 % Normal 0-10 [facility] Comment on above: Order Comment: 207.1 Performed By: #### L 100.0100, L501.5200, L500.2500, L501.6710 #### [facility] [address] [place], [address] Neutrophils/100 WBC (Bld) 71.9 % High 47-70 [facility] Comment on above: Order Comment: 207.1 Performed By: #### L 100.0100, L501.5200, L500.2500, L501.6710 #### [facility] [address] [place], [address] Nucleated RBC (Bld) [#/Vol] 0 10*3/uL Normal 0-5 [facility] Comment on above: Order Comment: 207.1 Performed By: #### L 100.0100, L501.5200, L500.2500, L501.6710 #### [facility] [address] [place], [address] Platelet mean volume (Bld) [Entitic vol] 9.5 fL Normal 6.2-12.0 [facility] Comment on above: Order Comment: 207.1 Performed By: #### L 100.0100, L501.5200, L500.2500, L501.6710 #### [facility] [address] [place], [address] Platelets (Bld) [#/Vol] 184 10*3/uL Normal 150-450 [facility] Comment on above: Order Comment: 207.1 Performed By: #### L 100.0100, L501.5200, L500.2500, L501.6710 #### [facility] [address] [place], [address] RBC (Bld) [#/Vol] 3.65 10*6/uL Low 4.2-5.4 [facility] Comment on above: Order Comment: 207.1 Performed By: #### L 100.0100, L501.5200, L500.2500, L501.6710 #### [facility] [address] [place], [address] RDW SD 46.5 fl High 35.1-43.9 [facility] Comment on above: Order Comment: 207.1 Performed By: #### L 100.0100, L501.5200, L500.2500, L501.6710 #### [facility] [address] [place], [address] WBC (Bld) [#/Vol] 7.0 10*3/uL Normal 4.4-11.[address] [facility] Comment on above: Order Comment: 207.1 Performed By: #### L 100.0100, L501.5200, L500.2500, L501.6710 #### [facility] [address] [place], [address] Carbon dioxide measurementOr dered By: Michaela Jaramillo on 02-13-2024 CO2 [Moles/Vol] 28.0 mmol/L 21.0-32.0 [facility] Chloride measurementOrdered By: Michaela Jaramillo on 02-13-2024 Chloride [Moles/Vol] 104 mmol/L 98-107 [facility] Eosinophil percentageOrdered By: Michaela Jaramillo on 02-13-2024 Eosinophils/100 WBC (Bld) 3.1 % 0-5 [facility] Erythrocyte distribution wid th ratioOrdered By: Michaela Jaramillo on 02-13-2024 Erythrocyte distribution width (RBC) [Ratio] 12.8 % 11.6-14.6 [facility] Erythrocyte distribution wid th standard deviationOrdered By: Michaela Jaramillo on 02-13-2024 Erythrocyte distribution width (RBC) [Entitic vol] 46.5 fL High 35.1-43.9 [facility] Estimated glomerular filtrat ion rate (GFR) AmericanOrdered By: Michaela Jaramillo on 02-13-2024 Estimated GFR (MDRD) Amer 71 mL/min >60 [facility] Comment on above: GFR Calc Glomerular filtration rate ( GFR) estimationOrdered By: Michaela Jaramillo on 02-13-2024 Estimated GFR (MDRD) Non-Af Amer 59 mL/min Low >60 [facility] Comment on above: Non- GFR Calc Glucose measurementOrdered B y: Michaela Jaramillo on 02-13-2024 Glucose [Mass/Vol] 192 mg/dL High 74-[address] [facility] Comment on above: Fasting Glucose resu lt greater than or equal to 126 mg/dL suggests DIABETES MELLITUS per A.D.A. criteria. Hematocrit Auto (Bld) [Volum e fraction]Ordered By: Michaela Jaramillo on 02-13-2024 Hematocrit (Bld) [Volume fraction] 36.2 % Low 37-47 [facility] Hemoglobin A1c percentageOrd ered By: Michaela Jaramillo on 02-13-2024 HbA1c (Bld) [Mass fraction] 6.8 % High 3.8-5.6 [facility] Comment on above: Normal < 5.7 % Predi abetic 5.7 - 6.4 % Diabetic >or= 6.5 % Please note range changes. Order Comment: 207.1 Result Comment: Norm al < 5.7 % Prediabetic 5.7 - 6.4 % Diabetic >or= 6.5 % Please note range changes. Performed By: #### L 100.0100, L501.5200, L500.2500, L501.6710 #### [facility] [address] [place], [place], [id number] Hemoglobin measurementOrdere d By: Michaela Jaramillo on 02-13-2024 Hemoglobin (Bld) [Mass/Vol] 12.1 g/dL 12.0-15.0 [facility] Immature granulocytes/100 WB C Auto (Bld)Ordered By: Michaela Jaramillo on 02-13-2024 Immature granulocytes/100 WBC (Bld) 0.900 % 0.0-0.9 [facility] Comment on above: IG% - Immature Granu locytes (promyelocytes, myelocytes and metamyelocytes) > 1% indicates that a LEFT SHIFT is Present. Lymphocytes Auto (Unsp spec) [#/Vol]Ordered By: Michaela Jaramillo on 02-13-2024 Lymphocytes (Bld) [#/Vol] 0.98 10*3/uL 0.83-4.51 [facility] Lymphocytes/100 WBC Auto (Un sp spec)Ordered By: Michaela Jaramillo on 02-13-2024 Lymphocytes/100 WBC (Bld) 14.0 % Low 19-41 [facility] MCV (mean corpuscular volume ) determinationOrdered By: Michaela Jaramillo on 02-13-2024 MCV (RBC) [Entitic vol] 99.2 fL High 81-[address] [facility] Magnesiumon 02-13-2024 Magnesium [Mass/Vol] 1.7 mg/dL Normal 1.6-2.6 [facility] Comment on above: Order Comment: 207.1 Performed By: #### L 100.0100, L501.5200, L500.2500, L501.6710 #### [facility] [address] [place] [address], [address] Magnesium measurementOrdered By: Michaela Jaramillo on 02-13-2024 Magnesium [Mass/Vol] 1.7 mg/dL 1.6-2.6 [facility] Mean corpuscular hemoglobin (MCH) determinationOrdered By: Michaela Jaramillo on 02-13-2024 MCH (RBC) [Entitic mass] 33.2 pg High 27.0-32.0 [facility] Mean corpuscular hemoglobin concentration (MCHC) determinationOrdered By: Michaela Jaramillo on 02-13-2024 MCHC (RBC) [Mass/Vol] 33.4 g/dL 32-36 [facility] Mean platelet volume determi nationOrdered By: Michaela Jaramillo on 02-13-2024 Platelet mean volume (Bld) [Entitic vol] 9.5 fL 6.2-12.0 [facility] Monocyte percentageOrdered B y: Michaela Jaramillo on 02-13-2024 Monocytes/100 WBC (Bld) 9.7 % 0-[address] [facility] Neutrophil percentageOrdered By: Michaela Jaramillo on 02-13-2024 Neutrophils/100 WBC (Bld) 71.9 % High 47-70 [facility] Nucleated red blood cell per centageOrdered By: Michaela Jaramillo on 02-13-2024 Nucleated RBC/100 WBC (Bld) [Ratio] 0 % 0-5 [facility] Platelet countOrdered By: Steven Jaramillo on 02-13-2024 Platelets (Bld) [#/Vol] 184 10*3/uL 150-450 [facility] Potassium measurementOrdered By: Michaela Jaramillo on 02-13-2024 Potassium [Moles/Vol] 3.8 mmol/L 3.5-5.1 [facility] RBC Auto (Bld) [#/Vol]Ordere d By: Michaela Jaramillo on 02-13-2024 RBC (Bld) [#/Vol] 3.65 10*6/uL Low 4.2-5.4 [facility] Serum anion gap measurementO rdered By: Michaela Jaramillo on 02-13-2024 Anion gap [Moles/Vol] 6 mmol/L 5-15 [facility] Serum or plasma calcium olive urement (mass/volume)Ordered By: Michaela Jaramillo on 02-13-2024 Calcium [Mass/Vol] 8.7 mg/dL 8.5-10.[address] [facility] Serum or plasma creatinine m easurement (mass/volume)Ordered By: Michaela Jaramillo on 02-13-2024 Creatinine [Mass/Vol] 0.98 mg/dL 0.55-1.02 [facility] Comment on above: The validity of the calculated GFR & GFRAA in patients over 70 years has not been determined. Clinical correlation is essential. Serum or plasma urea nitroge n measurement (mass/volume)Ordered By: Michaela Jaramillo on 02-13-2024 Urea nitrogen [Mass/Vol] 12 mg/dL 7-18 [facility] Sodium levelOrdered By: Jaycee Jaramillo on 02-13-2024 Sodium [Moles/Vol] 138 mmol/L 136-[address] [facility] TSH QnOrdered By: Michaela rosales on 02-13-2024 Thyroid Stimulating Hormone (TSH) 15.000 uIU/mL High 0.358-3.740 [facility] Thyroid Stim Hormone (TSH)on 02-13-2024 TSH 15.000 uIU/mL High 0.358-3.740 [facility] Comment on above: Order Comment: . Performed By: #### L 100.0100, L501.5200, L500.2500, L501.6710 #### [facility] [address] [place], [address] Vitamin B12on 02-13-2024 Cobalamin (Vitamin B12) [Mass/Vol] 493 pg/mL Normal [facility] Comment on above: Order Comment: . Performed By: #### L 100.0100, L501.5200, L500.2500, L501.6710 #### [facility] [address] [place], [address] Vitamin B12 measurementOrder ed By: Michaela Jaramillo on 02-13-2024 Cobalamin (Vitamin B12) [Mass/Vol] 493 pg/mL [facility] Vitamin D,25 Hydroxyon 02-12 Vitamin D 25-OH 18.4 ng/mL Normal [facility] Comment on above: Order Comment: 207.1 Result Comment: Rebeca min D 25(OH) Status Range Deficiency <20 ng/mL (50nmol/L) Insufficiency 20 - 30 ng/mL (50 - 75 nmol/L) Sufficiency 30 - 100 ng/mL (75 - 250 nmol/L) Toxicity >100 ng/mL (>250 nmol/L) Performed By: #### L 100.0100, L501.5200, L500.2500, L501.6710 #### [facility] [address] [place], [address] White blood cell (WBC) count Ordered By: Michaela Jaramillo on 02-13-2024 WBC (Bld) [#/Vol] 7.0 10*3/uL 4.4-11.[address] [facility] LABORATORYOrdered By: Abimael Kulkarni on 02-10-2024 Blood Glucose Testing Reason Routine (02/10/24 7:37 AM) [facility] Work Phone: Glucose [Mass/Vol] 134 mg/dL High 82 - 115 mg/dL [facility] Work Phone: LABORATORYOrdered By: Lisseth Ahumada on 02-09-2024 Blood Glucose Testing Reason Routine (02/09/24 8:32 PM) [facility] Work Phone: Glucose [Mass/Vol] 135 mg/dL High 82 - 115 mg/dL [facility] Work Phone: LABORATORYOrdered By: Nacho Johnson on 02-09-2024 Blood Glucose Testing Reason Routine (02/09/24 4:03 PM) [facility] Work Phone: Glucose [Mass/Vol] 110 mg/dL Normal 82 - 115 mg/dL [facility] Work Phone: LABORATORYOrdered By: Alyssa Obrien on 02-03-2024 Glucose [Mass/Vol] 139 mg/dL High 82 - 115 mg/dL [facility] Work Phone: LABORATORYOrdered By: Lázaro Cruz on 02-03-2024 Glucose [Mass/Vol] 146 mg/dL High 82 - 115 mg/dL [facility] Work Phone: LABORATORYOrdered By: Kristin preston on 02-03-2024 Blood Glucose Testing Reason Routine (02/03/24 7:33 AM) [facility] Work Phone: Glucose [Mass/Vol] 139 mg/dL High 82 - 115 mg/dL [facility] Work Phone: LABORATORYOrdered By: Jyoti Copeland on 02-02-2024 Blood Glucose Testing Reason Routine (02/02/24 9:42 PM) [facility] Work Phone: Time of Stated Blood Glucose [id number] [facility] Work Phone: LABORATORYOrdered By: Lázaro Cruz on 02-02-2024 Blood Glucose Testing Reason Routine (02/02/24 11:52 AM) [facility] Work Phone: LABORATORYOrdered By: Jyoti Copeland on 02-01-2024 Time of Stated Blood Glucose [id number] [facility] Work Phone: Time of Stated Blood Glucose [phone] [facility] Work Phone: Preliminary Reporton Preliminary Report . Pathology Reports Accession: Collected Date/Time: Received Date/Time: Pathologist: [id number] 01/30/2024 11:44 EST 01/31/2024 07:47 EST IRENE ALBERTO MD Preliminary Report Preliminary Discussion A. 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 Final Integrated diagnosis will be completed when all pending results of molecular workup, including 1p/19q, NGS and MGMT methylation become available. B. 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 CELLULARITY, NOT DIAGNOSTIC OF NEOPLASM Electronically Signed by SHARAN ALBERTO Sign out Date: 02/01/2024 09:49 Performing Lab: [facility], [address] [place] [address] Pathology Dept Normal [facility] .Auto Diffon 01-31-2024 Basophil, Absolute 0.0 10 3/mcL Normal 0.0-0.3 [facility] Comment on above: Performed By: #### A DIFF, GFR, CBC, BMP, ANEU #### [address] [address] Basophils/100 WBC (Bld) 0.1 % Normal 0.0-2.5 [facility] Comment on above: Performed By: #### A DIFF, GFR, CBC, BMP, ANEU #### [address] [address] Eosinophil, Absolute 0.0 10 3/mcL Normal 0.0-0.7 [facility] Comment on above: Performed By: #### A DIFF, GFR, CBC, BMP, ANEU #### [address] [address] Eosinophils/100 WBC (Bld) 0.0 % Normal 0.0-6.0 [facility] Comment on above: Performed By: #### A DIFF, GFR, CBC, BMP, ANEU #### [address] [address] Lymphocyte, Absolute 0.8 10 3/mcL Low 0.9-4.3 [facility] Comment on above: Performed By: #### A DIFF, GFR, CBC, BMP, ANEU #### [address] [address] Lymphocytes/100 WBC (Bld) 6.4 % Low 20.0-40.0 [facility] Comment on above: Performed By: #### A DIFF, GFR, CBC, BMP, ANEU #### [address] [address] Monocyte, Absolute 0.6 10 3/mcL Normal 0.1-1.4 [facility] Comment on above: Performed By: #### A DIFF, GFR, CBC, BMP, ANEU #### [address] [address] Monocytes/100 WBC (Bld) 4.6 % Normal 2.0-13.0 [facility] Comment on above: Performed By: #### A DIFF, GFR, CBC, BMP, ANEU #### [address] [address] Neutrophils/100 WBC (Bld) 88.9 % High 50.0-75.0 [facility] Comment on above: Performed By: #### A DIFF, GFR, CBC, BMP, ANEU #### [address] [address] .GFRon 01-31-2024 GFR >[address] [facility] Comment on above: Result Comment: GFR Population mean for , Non- Americans Ages 20-29 = 116 mL/min/1.73 sq.m. Ages 30-39 = 107 mL/min/1.73 sq.m. Ages 40-49 = 99 mL/min/1.73 sq.m. Ages 50-59 = 93 mL/min/1.73 sq.m. Ages 60-69 = 85 mL/min/1.73 sq.m. Ages 70+ = 75 mL/min/1.73 sq.m. Chronic Kidney Disease: Less than 60 mL/min/1.73 square meters End Stage Renal Disease: Less than 15 mL/min/1.73 square meters Performed By: #### A DIFF, GFR, CBC, BMP, ANEU #### [address] [address] GFR Non- >60 [facility] Comment on above: Result Comment: GFR Population mean for , Non- Americans Ages 20-29 = 116 mL/min/1.73 sq.m. Ages 30-39 = 107 mL/min/1.73 sq.m. Ages 40-49 = 99 mL/min/1.73 sq.m. Ages 50-59 = 93 mL/min/1.73 sq.m. Ages 60-69 = 85 mL/min/1.73 sq.m. Ages 70+ = 75 mL/min/1.73 sq.m. Chronic Kidney Disease: Less than 60 mL/min/1.73 square meters End Stage Renal Disease: Less than 15 mL/min/1.73 square meters Performed By: #### A DIFF, GFR, CBC, BMP, ANEU #### [address] [address] .NEUABSon 01-31-2024 Neutrophil, Absolute 10.7 10 3/mcL High 2.3-8.1 [facility] Comment on above: Performed By: #### A DIFF, GFR, CBC, BMP, ANEU #### [place] [id number] CBCon 01-31-2024 Erythrocyte distribution width (RBC) [Ratio] 13.5 % Normal 11.5-15.5 [facility] Comment on above: Performed By: #### A DIFF, GFR, CBC, BMP, ANEU #### [place] [address] Hematocrit (Bld) [Volume fraction] 37.6 % Normal 34.0-46.0 [facility] Comment on above: Performed By: #### A DIFF, GFR, CBC, BMP, ANEU #### [place] [address] Hgb 13.3 G/dL Normal 12.0-16.0 [facility] Comment on above: Performed By: #### A DIFF, GFR, CBC, BMP, ANEU #### [place] [address] MCH (RBC) [Entitic mass] 34.1 pg High 27.0-33.0 [facility] Comment on above: Performed By: #### A DIFF, GFR, CBC, BMP, ANEU #### [place] [address] MCHC 35.5 G/dL Normal 32.0-36.0 [facility] Comment on above: Performed By: #### A DIFF, GFR, CBC, BMP, ANEU #### [place] [address] MCV (RBC) [Entitic vol] 96.0 fL Normal 80.0-99.0 [facility] Comment on above: Performed By: #### A DIFF, GFR, CBC, BMP, ANEU #### [place] [address] Platelet 271 10 3/mcL Normal 150-450 [facility] Comment on above: Performed By: #### A DIFF, GFR, CBC, BMP, ANEU #### [place] [address] Platelet mean volume (Bld) [Entitic vol] 6.6 fL Normal 6.6-10.5 [facility] Comment on above: Performed By: #### A DIFF, GFR, CBC, BMP, ANEU #### [place] [address] RBC 3.92 10 6/mcL Low 4.10-5.30 [facility] Comment on above: Performed By: #### A DIFF, GFR, CBC, BMP, ANEU #### [place] [address] WBC 12.0 10 3/mcL High 4.5-10.8 [facility] Comment on above: Performed By: #### A DIFF, GFR, CBC, BMP, ANEU #### [place] [address] CMPon 01-31-2024 Albumin Level 2.7 G/dL Low 3.2-4.8 [facility] Comment on above: Performed By: #### A DIFF, GFR, CBC, BMP, ANEU #### [place] [address] Albumin/Globulin [Mass ratio] 1.0 {ratio} Normal 0.9-1.6 [facility] Comment on above: Performed By: #### A DIFF, GFR, CBC, BMP, ANEU #### [place] [address] ALP [Catalytic activity/Vol] 119 U/L Normal 38-126 [facility] Comment on above: Performed By: #### A DIFF, GFR, CBC, BMP, ANEU #### [place] [address] ALT [Catalytic activity/Vol] 29 U/L Normal 10-49 [facility] Comment on above: Performed By: #### A DIFF, GFR, CBC, BMP, ANEU #### [place] [address] AST [Catalytic activity/Vol] 15 U/L Normal 8-34 [facility] Comment on above: Performed By: #### A DIFF, GFR, CBC, BMP, ANEU #### [address] [address] Bili Total 0.70 mg/dL Normal 0.20-1.20 [facility] Comment on above: Result Comment: Use of this assay is not recommended for patients undergoing treatment with eltrombopag due to the potential for falsely elevated results. Performed By: #### A DIFF, GFR, CBC, BMP, ANEU #### [place] [id number] BUN/Creatinine Ratio 16.7 ratio Normal 10.0-22.0 [facility] Comment on above: Performed By: #### A DIFF, GFR, CBC, BMP, ANEU #### [address] [address] Calcium [Mass/Vol] 8.4 mg/dL Low 8.7-10.4 [facility] Comment on above: Performed By: #### A DIFF, GFR, CBC, BMP, ANEU #### [address] [address] Chloride [Moles/Vol] 107 mmol/L Normal 98-110 [facility] Comment on above: Performed By: #### A DIFF, GFR, CBC, BMP, ANEU #### [address] [address] CO2 [Moles/Vol] 25 mmol/L Normal 22-32 [facility] Comment on above: Performed By: #### A DIFF, GFR, CBC, BMP, ANEU #### [address] [address] Creatinine [Mass/Vol] 0.78 mg/dL Normal 0.50-1.20 [facility] Comment on above: Result Comment: Test ing performed on Numecent analyzer using enzymatic creatinine methodology. Performed By: #### A DIFF, GFR, CBC, BMP, ANEU #### [address] [address] Electrolyte Balance 8.0 mEq/L Normal 4.0-15.0 [facility] Comment on above: Performed By: #### A DIFF, GFR, CBC, BMP, ANEU #### [address] [address] Globulin 2.7 G/dL Normal 1.5-3.8 [facility] Comment on above: Performed By: #### A DIFF, GFR, CBC, BMP, ANEU #### [address] [address] Glucose [Mass/Vol] 209 mg/dL High 82-115 [facility] Comment on above: Performed By: #### A DIFF, GFR, CBC, BMP, ANEU #### [address] [address] Potassium [Moles/Vol] 4.5 mmol/L Normal 3.5-5.0 [facility] Comment on above: Performed By: #### A DIFF, GFR, CBC, BMP, ANEU #### [address] [address] Sodium [Moles/Vol] 140 mmol/L Normal 136-145 [facility] Comment on above: Performed By: #### A DIFF, GFR, CBC, BMP, ANEU #### [address] [address] Total Protein 5.4 G/dL Low 5.7-8.2 [facility] Comment on above: Performed By: #### A DIFF, GFR, CBC, BMP, ANEU #### [address] [address] Urea nitrogen [Mass/Vol] 13.0 mg/dL Normal 8.0-22.0 [facility] Comment on above: Performed By: #### A DIFF, GFR, CBC, BMP, ANEU #### [address] [address] LABORATORYOrdered By: SYSTEM SYSTEM on 01-31-2024 Albumin BCP dye [Mass/Vol] 2.7 G/dL Low 3.2 - 4.8 G/dL ADM SS Albumin/Globulin [Mass ratio] 1.0 {ratio} Normal 0.9 - 1.6 ratio AH ADM SS ALP [Catalytic activity/Vol] 119 U/L Normal 38 - 126 U/L AH ADM SS ALT No additional P-5'-P [Catalytic activity/Vol] 29 U/L Normal 10 - 49 U/L AH ADM SS AST [Catalytic activity/Vol] 15 U/L Normal 8 - 34 U/L AH ADM SS Basophils (Bld) [#/Vol] 0.0 103/mcL Normal 0.0 - 0.3 10^3/mcL Workflow SS Basophils/100 WBC (Bld) 0.1 % Normal 0.0 - 2.5 % Workflow SS Bilirubin [Mass/Vol] 0.70 mg/dL Normal 0.20 - 1.20 mg/dL ADM SS Comment on above: Interpretive Data: U se of this assay is not recommended for patients undergoing treatment with eltrombopag due to the potential for falsely elevated results. Calcium [Mass/Vol] 8.4 mg/dL Low 8.7 - 10. 4 mg/dL ADM SS Chloride [Moles/Vol] 107 mmol/L Normal 98 - 11 0 mEq/L ADM SS CO2 [Moles/Vol] 25 mmol/L Normal 22 - 32 mEq/L ADM SS Creatinine [Mass/Vol] 0.78 mg/dL Normal 0.50 - 1.20 mg/dL ADM SS Comment on above: Interpretive Data: T esting performed on Numecent analyzer using enzymatic creatinine methodology. Electrolyte Balance 8.0 mEq/L Normal 4.0 - 15 .0 mEq/L ADM SS Eosinophils (Bld) [#/Vol] 0.0 103/mcL Normal 0.0 - 0.7 10^3/mcL Workflow SS Eosinophils/100 WBC (Bld) 0.0 % Normal 0.0 - 6.0 % Workflow SS Erythrocyte distribution width (RBC) [Ratio] 13.5 % Normal 11.5 - 15.5 % Workflow SS GFR/1.73 sq M.predicted among blacks MDRD (S/P/Bld) [Vol rate/Area] ml/min/1.73sqm Invalid Interpretation Code ADM SS Comment on above: Interpretive Data: GFR Population mean for , Non- Americans Ages 20-29 = 116 mL/min/1.73 sq.m. Ages 30-39 = 107 mL/min/1.73 sq.m. Ages 40-49 = 99 mL/min/1.73 sq.m. Ages 50-59 = 93 mL/min/1.73 sq.m. Ages 60-69 = 85 mL/min/1.73 sq.m. Ages 70+ = 75 mL/min/1.73 sq.m. Chronic Kidney Disease: Less than 60 mL/min/1.73 square meters End Stage Renal Disease: Less than 15 mL/min/1.73 square meters GFR/1.73 sq M.predicted among non-blacks MDRD (S/P/Bld) [Vol rate/Area] ml/min/1.73sqm Invalid Interpretation Code ADM SS Comment on above: Interpretive Data: GFR Population mean for , Non- Americans Ages 20-29 = 116 mL/min/1.73 sq.m. Ages 30-39 = 107 mL/min/1.73 sq.m. Ages 40-49 = 99 mL/min/1.73 sq.m. Ages 50-59 = 93 mL/min/1.73 sq.m. Ages 60-69 = 85 mL/min/1.73 sq.m. Ages 70+ = 75 mL/min/1.73 sq.m. Chronic Kidney Disease: Less than 60 mL/min/1.73 square meters End Stage Renal Disease: Less than 15 mL/min/1.73 square meters Globulin 2.7 G/dL Normal 1.5 - 3.8 G/dL ADM SS Glucose [Mass/Vol] 209 mg/dL High 82 - 115 mg/dL ADM SS Hematocrit (Bld) [Volume fraction] 37.6 % Normal 34.0 - 46.0 % Workflow SS Hemoglobin (Bld) [Mass/Vol] 13.3 G/dL Normal 12.0 - 16.0 G/dL Workflow SS Lymphocytes (Bld) [#/Vol] 0.8 103/mcL Low 0.9 - 4.3 10^3/mcL Workflow SS Lymphocytes/100 WBC (Bld) 6.4 % Low 20.0 - 40.0 % Workflow SS Magnesium [Mass/Vol] 3.0 mg/dL High 1.6 - 2 .4 mg/dL ADM SS MCH (RBC) [Entitic mass] 34.1 pg High 27.0 - 33.0 pg Workflow SS MCHC 35.5 G/dL Normal 32.0 - 36.0 G/dL AH Workflow SS MCV (RBC) [Entitic vol] 96.0 fL Normal 80.0 - 99.0 fL AH Workflow SS Monocytes (Bld) [#/Vol] 0.6 103/mcL Normal 0.1 - 1.4 10^3/mcL AH Workflow SS Monocytes/100 WBC (Bld) 4.6 % Normal 2.0 - 13.0 % AH Workflow SS Neutrophils (Bld) [#/Vol] 10.7 103/mcL High 2.3 - 8.1 10^3/mcL AH Workflow SS Neutrophils/100 WBC (Bld) 88.9 % High 50.0 - 75.0 % AH Workflow SS Platelet mean volume (Bld) [Entitic vol] 6.6 fL Normal 6.6 - 10.5 fL AH Workflow SS Platelets (Bld) [#/Vol] 271 103/mcL Normal 150 - 450 10^3/mcL AH Workflow SS Potassium [Moles/Vol] 4.5 mmol/L Normal 3.5 - 5.0 mEq/L AH ADM SS Protein [Mass/Vol] 5.4 G/dL Low 5.7 - 8.2 G/dL AH ADM SS RBC (Bld) [#/Vol] 3.92 106/mcL Low 4.10 - 5.3 0 10^6/mcL AH Workflow SS Sodium [Moles/Vol] 140 mmol/L Normal 136 - 145 mEq/L AH ADM SS Urea nitrogen [Mass/Vol] 13.0 mg/dL Normal 8.0 - 22.0 mg/dL AH ADM SS Urea nitrogen/Creatinine [Mass ratio] 16.7 ratio Normal 10.0 - 22.0 ratio AH ADM SS WBC (Bld) [#/Vol] 12.0 103/mcL High 4.5 - 10.8 10^3/mcL Workflow SS MGon 01-31-2024 Magnesium [Mass/Vol] 3.0 mg/dL High 1.6-2.4 [facility] Comment on above: Performed By: #### A DIFF, GFR, CBC, BMP, ANEU #### [address] [address] MRI BRAIN W/ + W/O CONTRASTo n 01-31-2024 MRI BRAIN W/ + W/O CONTRAST ORIGINAL EXAMINATION: MRI OF THE BRAIN WITHOUT AND WITH CONTRAST 01/31/2024 9:05 am TECHNIQUE: Multiplanar multisequence MRI of the head/brain was performed without and with the administration of intravenous contrast. COMPARISON: MRI brain 01/30/2024. HISTORY: ORDERING SYSTEM PROVIDED HISTORY: Reason for Exam: postop evaluation FINDINGS: INTRACRANIAL STRUCTURES/VENTRICLES: There is no acute infarct. There has been interval right-sided craniotomy with resection of the previously identified multilobulated mass in the right parietooccipital region. The rim of the surgical cavity exhibits restricted diffusion with minimal hemorrhage and no significant contrast enhancement. There is decreased mass effect upon the posterior horn of the right lateral ventricle with decreased midline shift. No extra-axial fluid collection. ORBITS: Previous cataract surg SINUSES: The visualized paranasal sinuses and mastoid air cells demonstrate no acute abnormality. IMPRESSION: Interval resection of the right parietooccipital mass. No postsurgical complication. Interpreted by: Iraj Genao Preliminary Report By: Iraj Genao Electronically signed By Iraj Genao Dictated Date: 01/31/2024 9:09:57 AM Prelim Date: 01/31/2024 9:21:14 AM Sign Date: 01/31/2024 9:21:14 AM Ordering Provider: WANG Danielle [facility] .Auto Diffon 01-30-2024 Basophil, Absolute 0.0 10 3/mcL Normal 0.0-0.3 [facility] Comment on above: Performed By: #### A DIFF, GFR, CBC, BMP, ANEU #### [address] [address] Basophils/100 WBC (Bld) 0.1 % Normal 0.0-2.5 [facility] Comment on above: Performed By: #### A DIFF, GFR, CBC, BMP, ANEU #### [address] [address] Eosinophil, Absolute 0.0 10 3/mcL Normal 0.0-0.7 [facility] Comment on above: Performed By: #### A DIFF, GFR, CBC, BMP, ANEU #### [address] [address] Eosinophils/100 WBC (Bld) 0.0 % Normal 0.0-6.0 [facility] Comment on above: Performed By: #### A DIFF, GFR, CBC, BMP, ANEU #### [address] [address] Lymphocyte, Absolute 0.8 10 3/mcL Low 0.9-4.3 [facility] Comment on above: Performed By: #### A DIFF, GFR, CBC, BMP, ANEU #### [address] [address] Lymphocytes/100 WBC (Bld) 5.2 % Low 20.0-40.0 [facility] Comment on above: Performed By: #### A DIFF, GFR, CBC, BMP, ANEU #### [address] [address] Monocyte, Absolute 0.8 10 3/mcL Normal 0.1-1.4 [facility] Comment on above: Performed By: #### A DIFF, GFR, CBC, BMP, ANEU #### [address] [address] Monocytes/100 WBC (Bld) 5.5 % Normal 2.0-13.0 [facility] Comment on above: Performed By: #### A DIFF, GFR, CBC, BMP, ANEU #### [address] [address] Neutrophils/100 WBC (Bld) 89.2 % High 50.0-75.0 [facility] Comment on above: Performed By: #### A DIFF, GFR, CBC, BMP, ANEU #### [address] [address] Basophil, Absolute 0.0 10 3/mcL Normal 0.0-0.3 [facility] Comment on above: Performed By: #### G FR, CMP, CBC, LD, ADIFF, ANEU #### [address] [address] Basophils/100 WBC (Bld) 0.1 % Normal 0.0-2.5 [facility] Comment on above: Performed By: #### G FR, CMP, CBC, LD, ADIFF, ANEU #### [address] [address] Eosinophil, Absolute 0.0 10 3/mcL Normal 0.0-0.7 [facility] Comment on above: Performed By: #### G FR, CMP, CBC, LD, ADIFF, ANEU #### [address] [address] Eosinophils/100 WBC (Bld) 0.2 % Normal 0.0-6.0 [facility] Comment on above: Performed By: #### G FR, CMP, CBC, LD, ADIFF, ANEU #### [address] [address] Lymphocyte, Absolute 1.0 10 3/mcL Normal 0.9-4.3 [facility] Comment on above: Performed By: #### G FR, CMP, CBC, LD, ADIFF, ANEU #### [address] [address] Lymphocytes/100 WBC (Bld) 10.9 % Low 20.0-40.0 [facility] Comment on above: Performed By: #### G FR, CMP, CBC, LD, ADIFF, ANEU #### [address] [address] Monocyte, Absolute 0.5 10 3/mcL Normal 0.1-1.4 [facility] Comment on above: Performed By: #### G FR, CMP, CBC, LD, ADIFF, ANEU #### [address] [address] Monocytes/100 WBC (Bld) 5.8 % Normal 2.0-13.0 [facility] Comment on above: Performed By: #### G FR, CMP, CBC, LD, ADIFF, ANEU #### [address] [address] Neutrophils/100 WBC (Bld) 83.0 % High 50.0-75.0 [facility] Comment on above: Performed By: #### G FR, CMP, CBC, LD, ADIFF, ANEU #### [address] [address] .GFRon 01-30-2024 GFR >60 Normal [facility] Comment on above: Result Comment: GFR Population mean for , Non- Americans Ages 20-29 = 116 mL/min/1.73 sq.m. Ages 30-39 = 107 mL/min/1.73 sq.m. Ages 40-49 = 99 mL/min/1.73 sq.m. Ages 50-59 = 93 mL/min/1.73 sq.m. Ages 60-69 = 85 mL/min/1.73 sq.m. Ages 70+ = 75 mL/min/1.73 sq.m. Chronic Kidney Disease: Less than 60 mL/min/1.73 square meters End Stage Renal Disease: Less than 15 mL/min/1.73 square meters Performed By: #### A DIFF, GFR, CBC, BMP, ANEU #### [address] [address] GFR Non- >60 [facility] Comment on above: Result Comment: GFR Population mean for , Non- Americans Ages 20-29 = 116 mL/min/1.73 sq.m. Ages 30-39 = 107 mL/min/1.73 sq.m. Ages 40-49 = 99 mL/min/1.73 sq.m. Ages 50-59 = 93 mL/min/1.73 sq.m. Ages 60-69 = 85 mL/min/1.73 sq.m. Ages 70+ = 75 mL/min/1.73 sq.m. Chronic Kidney Disease: Less than 60 mL/min/1.73 square meters End Stage Renal Disease: Less than 15 mL/min/1.73 square meters Performed By: #### A DIFF, GFR, CBC, BMP, ANEU #### [address] [address] GFR Non- >60 [facility] Comment on above: Result Comment: GFR Population mean for , Non- Americans Ages 20-29 = 116 mL/min/1.73 sq.m. Ages 30-39 = 107 mL/min/1.73 sq.m. Ages 40-49 = 99 mL/min/1.73 sq.m. Ages 50-59 = 93 mL/min/1.73 sq.m. Ages 60-69 = 85 mL/min/1.73 sq.m. Ages 70+ = 75 mL/min/1.73 sq.m. Chronic Kidney Disease: Less than 60 mL/min/1.73 square meters End Stage Renal Disease: Less than 15 mL/min/1.73 square meters Performed By: #### G FR, CMP, CBC, LD, ADIFF, ANEU #### [address] [address] GFR >60 Normal [facility] Comment on above: Result Comment: GFR Population mean for , Non- Americans Ages 20-29 = 116 mL/min/1.73 sq.m. Ages 30-39 = 107 mL/min/1.73 sq.m. Ages 40-49 = 99 mL/min/1.73 sq.m. Ages 50-59 = 93 mL/min/1.73 sq.m. Ages 60-69 = 85 mL/min/1.73 sq.m. Ages 70+ = 75 mL/min/1.73 sq.m. Chronic Kidney Disease: Less than 60 mL/min/1.73 square meters End Stage Renal Disease: Less than 15 mL/min/1.73 square meters Performed By: #### G FR, CMP, CBC, LD, ADIFF, ANEU #### [address] [address] .NEUABSon 01-30-2024 Neutrophil, Absolute 13.0 10 3/mcL High 2.3-8.1 [facility] Comment on above: Performed By: #### A DIFF, GFR, CBC, BMP, ANEU #### [address] [address] Neutrophil, Absolute 7.9 10 3/mcL Normal 2.3-8.1 [facility] Comment on above: Performed By: #### G FR, CMP, CBC, LD, ADIFF, ANEU #### [address] [address] ABO/Rh (Gel)on 01-30-2024 ABO/Rh Interp Positive Invalid Interpretation Code [facility] Comment on above: Performed By: #### G FR, CMP, CBC, LD, ADIFF, ANEU #### [address] [address] ABS (Gel)on 01-30-2024 ABSC Interp (Gel) Negative Normal [facility] Comment on above: Performed By: #### G FR, CMP, CBC, LD, ADIFF, ANEU #### [place] [id number] APTTon 01-30-2024 aPTT Coag (Bld) [Time] 24.9 s Low 25.0-35.0 [facility] Comment on above: Result Comment: For Heparin anticoagulation therapy, the recommended therapeutic range is: 54-77 seconds (APTT Correlation with Anti-Xa therapeutic range of 0.3-0.7 units/ml). PLEASE REFERENCE THE PHARMACY PROTOCOL FOR DOSING. Performed By: #### G FR, CMP, CBC, LD, ADIFF, ANEU #### [place] [id number] BGon 01-30-2024 Base excess Calc (Bld) [Moles/Vol] -2.4000 mmol/L [facility] Comment on above: Performed By: #### A DIFF, GFR, CBC, BMP, ANEU #### [place] [address] CO2 [Moles/Vol] 21.4 mmol/L Low 22.0-30.0 [facility] Comment on above: Performed By: #### A DIFF, GFR, CBC, BMP, ANEU #### [place] [id number] HCO3 (Bld) [Moles/Vol] 20.4 mmol/L Low 21.0-29.0 [facility] Comment on above: Performed By: #### A DIFF, GFR, CBC, BMP, ANEU #### [place] [id number] Oxygen (Bld) [Partial pressure] 219.0 mm[Hg] High 74.0-108.0 [facility] Comment on above: Performed By: #### A DIFF, GFR, CBC, BMP, ANEU #### [place] [id number] Oxygen saturation in Blood 99.3 % High 92.0-96.0 [facility] Comment on above: Performed By: #### A DIFF, GFR, CBC, BMP, ANEU #### [address] [address] pCO2 30.3 mmHg Low 32.0-46.0 [facility] Comment on above: Performed By: #### A DIFF, GFR, CBC, BMP, ANEU #### [address] [address] pH (Bld) 7.447 [pH] Normal 7.380-7.460 [facility] Comment on above: Performed By: #### A DIFF, GFR, CBC, BMP, ANEU #### [address] [address] Base excess Calc (Bld) [Moles/Vol] -1.1000 mmol/L Normal [facility] Comment on above: Performed By: #### G FR, CMP, CBC, LD, ADIFF, ANEU #### [address] [address] CO2 [Moles/Vol] 23.5 mmol/L Normal 22.0-30.0 [facility] Comment on above: Performed By: #### G FR, CMP, CBC, LD, ADIFF, ANEU #### [address] [address] HCO3 (Bld) [Moles/Vol] 22.5 mmol/L Normal 21.0-29.0 [facility] Comment on above: Performed By: #### G FR, CMP, CBC, LD, ADIFF, ANEU #### [address] [address] Oxygen (Bld) [Partial pressure] 266.6 mm[Hg] High 74.0-108.0 [facility] Comment on above: Performed By: #### G FR, CMP, CBC, LD, ADIFF, ANEU #### [address] [address] Oxygen saturation in Blood 99.6 % High 92.0-96.0 [facility] Comment on above: Performed By: #### G FR, CMP, CBC, LD, ADIFF, ANEU #### [address] [address] pCO2 34.1 mmHg Normal 32.0-46.0 [facility] Comment on above: Performed By: #### G FR, CMP, CBC, LD, ADIFF, ANEU #### [place] [address] pH (Bld) 7.437 [pH] Normal 7.380-7.460 [facility] Comment on above: Performed By: #### G FR, CMP, CBC, LD, ADIFF, ANEU #### [place] [address] BGOHon 01-30-2024 Patient Location [facility] Comment on above: Performed By: #### G FR, CMP, CBC, LD, ADIFF, ANEU #### [place] [address] Patient Location [facility] MAIN Comment on above: Performed By: #### A DIFF, GFR, CBC, BMP, ANEU #### [address]-20[address] BUN/Creatinine Ratio 19.7 ratio Normal 10.0-22.0 [facility] Comment on above: Performed By: #### A DIFF, GFR, CBC, BMP, ANEU #### [place] [address] Calcium [Mass/Vol] 8.2 mg/dL Low 8.7-10.4 [facility] Comment on above: Performed By: #### A DIFF, GFR, CBC, BMP, ANEU #### [place] [address] Chloride [Moles/Vol] 107 mmol/L Normal 98-110 [facility] Comment on above: Performed By: #### A DIFF, GFR, CBC, BMP, ANEU #### [place] [address] CO2 [Moles/Vol] 23 mmol/L Normal 22-32 [facility] Comment on above: Performed By: #### A DIFF, GFR, CBC, BMP, ANEU #### [place] [address] Creatinine [Mass/Vol] 0.66 mg/dL Normal 0.50-1.20 [facility] Comment on above: Result Comment: Test ing performed on Numecent analyzer using enzymatic creatinine methodology. Performed By: #### A DIFF, GFR, CBC, BMP, ANEU #### [address] [address] Electrolyte Balance 10.0 mEq/L Normal 4.0-15.0 [facility] Comment on above: Performed By: #### A DIFF, GFR, CBC, BMP, ANEU #### [address] [address] Glucose [Mass/Vol] 265 mg/dL High 82-115 [facility] Comment on above: Performed By: #### A DIFF, GFR, CBC, BMP, ANEU #### [address] [address] Potassium [Moles/Vol] 3.4 mmol/L Low 3.5-5.0 [facility] Comment on above: Performed By: #### A DIFF, GFR, CBC, BMP, ANEU #### [address] [address] Sodium [Moles/Vol] 140 mmol/L Normal 136-145 [facility] Comment on above: Performed By: #### A DIFF, GFR, CBC, BMP, ANEU #### [address] [address] Urea nitrogen [Mass/Vol] 13.0 mg/dL Normal 8.0-22.0 [facility] Comment on above: Performed By: #### A DIFF, GFR, CBC, BMP, ANEU #### [address] [address] BUN/Creatinine Ratio 24.3 ratio High 10.0-22.0 [facility] Comment on above: Performed By: #### G FR, CMP, CBC, LD, ADIFF, ANEU #### [address] [address] Calcium [Mass/Vol] 9.1 mg/dL Normal 8.7-10.4 [facility] Comment on above: Performed By: #### G FR, CMP, CBC, LD, ADIFF, ANEU #### [address] [address] Chloride [Moles/Vol] 108 mmol/L Normal 98-110 [facility] Comment on above: Performed By: #### G FR, CMP, CBC, LD, ADIFF, ANEU #### [address] [address] CO2 [Moles/Vol] 25 mmol/L Normal 22-32 [facility] Comment on above: Performed By: #### G FR, CMP, CBC, LD, ADIFF, ANEU #### [address] [address] Creatinine [Mass/Vol] 0.74 mg/dL Normal 0.50-1.20 [facility] Comment on above: Result Comment: Test ing performed on Numecent analyzer using enzymatic creatinine methodology. Performed By: #### G FR, CMP, CBC, LD, ADIFF, ANEU #### [address] [address] Electrolyte Balance 8.0 mEq/L Normal 4.0-15.0 [facility] Comment on above: Performed By: #### G FR, CMP, CBC, LD, ADIFF, ANEU #### [address] [address] Glucose [Mass/Vol] 177 mg/dL High 82-115 [facility] Comment on above: Performed By: #### G FR, CMP, CBC, LD, ADIFF, ANEU #### [address] [address] Potassium [Moles/Vol] 4.2 mmol/L Normal 3.5-5.0 [facility] Comment on above: Performed By: #### G FR, CMP, CBC, LD, ADIFF, ANEU #### [address] [address] Sodium [Moles/Vol] 141 mmol/L Normal 136-145 [facility] Comment on above: Performed By: #### G FR, CMP, CBC, LD, ADIFF, ANEU #### [address] [address] Urea nitrogen [Mass/Vol] 18.0 mg/dL Normal 8.0-22.0 [facility] Comment on above: Performed By: #### G FR, CMP, CBC, LD, ADIFF, ANEU #### [place] [address] [place]on 01-30-2024 Calcium Ionized OR 1.13 mmol/L Normal 1.12-1.32 [facility] Comment on above: Performed By: #### A DIFF, GFR, CBC, BMP, ANEU #### [place] [address] Calcium Ionized OR 1.14 mmol/L Normal 1.12-1.32 [facility] Comment on above: Performed By: #### G FR, CMP, CBC, LD, ADIFF, ANEU #### [place] [address] CBCon 01-30-2024 Erythrocyte distribution width (RBC) [Ratio] 13.4 % Normal 11.5-15.5 [facility] Comment on above: Performed By: #### A DIFF, GFR, CBC, BMP, ANEU #### [place] [address] Hematocrit (Bld) [Volume fraction] 40.6 % Normal 34.0-46.0 [facility] Comment on above: Performed By: #### A DIFF, GFR, CBC, BMP, ANEU #### [place] [address] Hgb 14.5 G/dL Normal 12.0-16.0 [facility] Comment on above: Performed By: #### A DIFF, GFR, CBC, BMP, ANEU #### [place] [address] MCH (RBC) [Entitic mass] 34.2 pg High 27.0-33.0 [facility] Comment on above: Performed By: #### A DIFF, GFR, CBC, BMP, ANEU #### [place] [address] MCHC 35.7 G/dL Normal 32.0-36.0 [facility] Comment on above: Performed By: #### A DIFF, GFR, CBC, BMP, ANEU #### [address] [address] MCV (RBC) [Entitic vol] 96.0 fL Normal 80.0-99.0 [place] [facility] Comment on above: Performed By: #### A DIFF, GFR, CBC, BMP, ANEU #### [address] [address] Platelet 285 10 3/mcL Normal 150-450 [facility] Comment on above: Performed By: #### A DIFF, GFR, CBC, BMP, ANEU #### [place] [id number] Platelet mean volume (Bld) [Entitic vol] 7.0 fL Normal 6.6-10.5 [facility] Comment on above: Performed By: #### A DIFF, GFR, CBC, BMP, ANEU #### [place] [id number] RBC 4.22 10 6/mcL Normal 4.10-5.30 [facility] Comment on above: Performed By: #### A DIFF, GFR, CBC, BMP, ANEU #### [place] [id number] WBC 14.5 10 3/mcL High 4.5-10.8 [facility] Comment on above: Performed By: #### A DIFF, GFR, CBC, BMP, ANEU #### [place] [address] Erythrocyte distribution width (RBC) [Ratio] 12.8 % Normal 11.5-15.5 [facility] Comment on above: Performed By: #### G FR, CMP, CBC, LD, ADIFF, ANEU #### [address] [address] Hematocrit (Bld) [Volume fraction] 41.2 % Normal 34.0-46.0 [facility] Comment on above: Performed By: #### G FR, CMP, CBC, LD, ADIFF, ANEU #### [address] [address] Hgb 14.2 G/dL Normal 12.0-16.0 [facility] Comment on above: Performed By: #### G FR, CMP, CBC, LD, ADIFF, ANEU #### [place] [address] MCH (RBC) [Entitic mass] 32.9 pg Normal 27.0-33.0 [facility] Comment on above: Performed By: #### G FR, CMP, CBC, LD, ADIFF, ANEU #### [place] [address] MCHC 34.5 G/dL Normal 32.0-36.0 [facility] Comment on above: Performed By: #### G FR, CMP, CBC, LD, ADIFF, ANEU #### [place] [address] MCV (RBC) [Entitic vol] 95.2 fL Normal 80.0-99.0 [facility] Comment on above: Performed By: #### G FR, CMP, CBC, LD, ADIFF, ANEU #### [place] [address] Platelet 246 10 3/mcL Normal 150-450 [facility] Comment on above: Performed By: #### G FR, CMP, CBC, LD, ADIFF, ANEU #### [place] [address] Platelet mean volume (Bld) [Entitic vol] 7.2 fL Normal 6.6-10.5 [facility] Comment on above: Performed By: #### G FR, CMP, CBC, LD, ADIFF, ANEU #### [place] [address] RBC 4.32 10 6/mcL Normal 4.10-5.30 [facility] Comment on above: Performed By: #### G FR, CMP, CBC, LD, ADIFF, ANEU #### [place] [id number] WBC 9.5 10 3/mcL Normal 4.5-10.8 [facility] Comment on above: Performed By: #### G FR, CMP, CBC, LD, ADIFF, ANEU #### [place] [id number] FIBon 01-30-2024 Fibrinogen 284 mg/dL Normal 250-560 [facility] Comment on above: Performed By: #### G FR, CMP, CBC, LD, ADIFF, ANEU #### [address] [address] GLUORon 01-30-2024 Glucose [Mass/Vol] 166 mg/dL High 82-115 [facility] Comment on above: Performed By: #### G FR, CMP, CBC, LD, ADIFF, ANEU #### [place] [address] Glucose [Mass/Vol] 121 mg/dL High 82-115 [facility] Comment on above: Performed By: #### A DIFF, GFR, CBC, BMP, ANEU #### [address] [address] HCTORon 01-30-2024 Hematocrit (Bld) [Volume fraction] 42.0 % Normal 37.0-47.0 [facility] Comment on above: Performed By: #### A DIFF, GFR, CBC, BMP, ANEU #### [place] [address] Hematocrit (Bld) [Volume fraction] 40.0 % Normal 37.0-47.0 [facility] Comment on above: Performed By: #### G FR, CMP, CBC, LD, ADIFF, ANEU #### [address] [address] HGBORon 01-30-2024 Hemoglobin OR 14.4 G/dL Normal 12.0-16.0 [facility] Comment on above: Performed By: #### G FR, CMP, CBC, LD, ADIFF, ANEU #### [address] [address] Hemoglobin OR 13.5 G/dL Normal 12.0-16.0 [facility] Comment on above: Performed By: #### A DIFF, GFR, CBC, BMP, ANEU #### [address] [address] KORon 01-30-2024 Potassium [Moles/Vol] 3.7 mmol/L Normal 3.5-5.0 [facility] Comment on above: Performed By: #### G FR, CMP, CBC, LD, ADIFF, ANEU #### [address] [address] Potassium [Moles/Vol] 3.4 mmol/L Low 3.5-5.0 [facility] Comment on above: Performed By: #### A DIFF, GFR, CBC, BMP, ANEU #### [address] [address] LABORATORYOrdered By: SYSTEM SYSTEM on 01-30-2024 Basophils (Bld) [#/Vol] 0.0 103/mcL Normal 0.0 - 0.3 10^3/mcL Workflow SS Basophils/100 WBC (Bld) 0.1 % Normal 0.0 - 2.5 % AH Workflow SS Calcium [Mass/Vol] 8.2 mg/dL Low 8.7 - 10. 4 mg/dL ADM SS Chloride [Moles/Vol] 107 mmol/L Normal 98 - 11 0 mEq/L ADM SS CO2 [Moles/Vol] 23 mmol/L Normal 22 - 32 mEq/L ADM SS Creatinine [Mass/Vol] 0.66 mg/dL Normal 0.50 - 1.20 mg/dL ADM SS Comment on above: Interpretive Data: T esting performed on Numecent analyzer using enzymatic creatinine methodology. Electrolyte Balance 10.0 mEq/L Normal 4.0 - 15 .0 mEq/L ADM SS Eosinophils (Bld) [#/Vol] 0.0 103/mcL Normal 0.0 - 0.7 10^3/mcL AH Workflow SS Eosinophils/100 WBC (Bld) 0.0 % Normal 0.0 - 6.0 % AH Workflow SS Erythrocyte distribution width (RBC) [Ratio] 13.4 % Normal 11.5 - 15.5 % AH Workflow SS GFR/1.73 sq M.predicted among blacks MDRD (S/P/Bld) [Vol rate/Area] ml/min/1.73sqm Invalid Interpretation Code AH ADM SS Comment on above: Interpretive Data: GFR Population mean for , Non- Americans Ages 20-29 = 116 mL/min/1.73 sq.m. Ages 30-39 = 107 mL/min/1.73 sq.m. Ages 40-49 = 99 mL/min/1.73 sq.m. Ages 50-59 = 93 mL/min/1.73 sq.m. Ages 60-69 = 85 mL/min/1.73 sq.m. Ages 70+ = 75 mL/min/1.73 sq.m. Chronic Kidney Disease: Less than 60 mL/min/1.73 square meters End Stage Renal Disease: Less than 15 mL/min/1.73 square meters GFR/1.73 sq M.predicted among non-blacks MDRD (S/P/Bld) [Vol rate/Area] ml/min/1.73sqm Invalid Interpretation Code ADM SS Comment on above: Interpretive Data: GFR Population mean for , Non- Americans Ages 20-29 = 116 mL/min/1.73 sq.m. Ages 30-39 = 107 mL/min/1.73 sq.m. Ages 40-49 = 99 mL/min/1.73 sq.m. Ages 50-59 = 93 mL/min/1.73 sq.m. Ages 60-69 = 85 mL/min/1.73 sq.m. Ages 70+ = 75 mL/min/1.73 sq.m. Chronic Kidney Disease: Less than 60 mL/min/1.73 square meters End Stage Renal Disease: Less than 15 mL/min/1.73 square meters Glucose [Mass/Vol] 265 mg/dL High 82 - 115 mg/dL ADM SS Hematocrit (Bld) [Volume fraction] 40.6 % Normal 34.0 - 46.0 % AH Workflow SS Hemoglobin (Bld) [Mass/Vol] 14.5 G/dL Normal 12.0 - 16.0 G/dL AH Workflow SS Lymphocytes (Bld) [#/Vol] 0.8 103/mcL Low 0.9 - 4.3 10^3/mcL AH Workflow SS Lymphocytes/100 WBC (Bld) 5.2 % Low 20.0 - 40.0 % AH Workflow SS Magnesium [Mass/Vol] 1.6 mg/dL Normal 1.6 - 2 .4 mg/dL ADM SS MCH (RBC) [Entitic mass] 34.2 pg High 27.0 - 33.0 pg AH Workflow SS MCHC 35.7 G/dL Normal 32.0 - 36.0 G/dL Workflow SS MCV (RBC) [Entitic vol] 96.0 fL Normal 80.0 - 99.0 fL Workflow SS Monocytes (Bld) [#/Vol] 0.8 103/mcL Normal 0.1 - 1.4 10^3/mcL AH Workflow SS Monocytes/100 WBC (Bld) 5.5 % Normal 2.0 - 13.0 % AH Workflow SS Neutrophils (Bld) [#/Vol] 13.0 103/mcL High 2.3 - 8.1 10^3/mcL Workflow SS Neutrophils/100 WBC (Bld) 89.2 % High 50.0 - 75.0 % Workflow SS Phosphate [Mass/Vol] 4.1 mg/dL Normal 2.4 - 5 .1 mg/dL ADM SS Comment on above: Interpretive Data: * *Note - New Reference Range in effect 19 Platelet mean volume (Bld) [Entitic vol] 7.0 fL Normal 6.6 - 10.5 fL Workflow SS Platelets (Bld) [#/Vol] 285 103/mcL Normal 150 - 450 10^3/mcL Workflow SS Potassium [Moles/Vol] 3.4 mmol/L Low 3.5 - 5.0 mEq/L ADM SS RBC (Bld) [#/Vol] 4.22 106/mcL Normal 4.10 - 5.3 0 10^6/mcL Workflow SS Sodium [Moles/Vol] 140 mmol/L Normal 136 - 145 mEq/L ADM SS Urea nitrogen [Mass/Vol] 13.0 mg/dL Normal 8.0 - 22.0 mg/dL ADM SS Urea nitrogen/Creatinine [Mass ratio] 19.7 ratio Normal 10.0 - 22.0 ratio ADM SS WBC (Bld) [#/Vol] 14.5 103/mcL High 4.5 - 10.8 10^3/mcL Workflow SS aPTT Coag (Bld) [Time] 24.9 s Low 25.0 - 35.0 seconds [facility] SS Comment on above: Interpretive Data: F or Heparin anticoagulation therapy, the recommended therapeutic range is: 54-77 seconds (APTT Correlation with Anti-Xa therapeutic range of 0.3-0.7 units/ml). PLEASE REFERENCE THE PHARMACY PROTOCOL FOR DOSING. Basophils (Bld) [#/Vol] 0.0 103/mcL Normal 0.0 - 0.3 10^3/mcL Workflow SS Basophils/100 WBC (Bld) 0.1 % Normal 0.0 - 2.5 % Workflow SS Calcium [Mass/Vol] 9.1 mg/dL Normal 8.7 - 10. 4 mg/dL ADM SS Chloride [Moles/Vol] 108 mmol/L Normal 98 - 11 0 mEq/L ADM SS CO2 [Moles/Vol] 25 mmol/L Normal 22 - 32 mEq/L ADM SS Creatinine [Mass/Vol] 0.74 mg/dL Normal 0.50 - 1.20 mg/dL ADM SS Comment on above: Interpretive Data: T esting performed on Numecent analyzer using enzymatic creatinine methodology. Electrolyte Balance 8.0 mEq/L Normal 4.0 - 15 .0 mEq/L ADM SS Eosinophils (Bld) [#/Vol] 0.0 103/mcL Normal 0.0 - 0.7 10^3/mcL Workflow SS Eosinophils/100 WBC (Bld) 0.2 % Normal 0.0 - 6.0 % Workflow SS Erythrocyte distribution width (RBC) [Ratio] 12.8 % Normal 11.5 - 15.5 % Workflow SS Fibrinogen 284 mg/dL Normal 250 - 560 mg/dL [facility] SS GFR/1.73 sq M.predicted among blacks MDRD (S/P/Bld) [Vol rate/Area] ml/min/1.73sqm Invalid Interpretation Code Chemistry S Comment on above: Interpretive Data: GFR Population mean for , Non- Americans Ages 20-29 = 116 mL/min/1.73 sq.m. Ages 30-39 = 107 mL/min/1.73 sq.m. Ages 40-49 = 99 mL/min/1.73 sq.m. Ages 50-59 = 93 mL/min/1.73 sq.m. Ages 60-69 = 85 mL/min/1.73 sq.m. Ages 70+ = 75 mL/min/1.73 sq.m. Chronic Kidney Disease: Less than 60 mL/min/1.73 square meters End Stage Renal Disease: Less than 15 mL/min/1.73 square meters GFR/1.73 sq M.predicted among non-blacks MDRD (S/P/Bld) [Vol rate/Area] ml/min/1.73sqm Invalid Interpretation Code Chemistry S Comment on above: Interpretive Data: GFR Population mean for , Non- Americans Ages 20-29 = 116 mL/min/1.73 sq.m. Ages 30-39 = 107 mL/min/1.73 sq.m. Ages 40-49 = 99 mL/min/1.73 sq.m. Ages 50-59 = 93 mL/min/1.73 sq.m. Ages 60-69 = 85 mL/min/1.73 sq.m. Ages 70+ = 75 mL/min/1.73 sq.m. Chronic Kidney Disease: Less than 60 mL/min/1.73 square meters End Stage Renal Disease: Less than 15 mL/min/1.73 square meters Glucose [Mass/Vol] 177 mg/dL High 82 - 115 mg/dL ADM SS Hematocrit (Bld) [Volume fraction] 41.2 % Normal 34.0 - 46.0 % AH Workflow SS Hemoglobin (Bld) [Mass/Vol] 14.2 G/dL Normal 12.0 - 16.0 G/dL AH Workflow SS Lymphocytes (Bld) [#/Vol] 1.0 103/mcL Normal 0.9 - 4.3 10^3/mcL AH Workflow SS Lymphocytes/100 WBC (Bld) 10.9 % Low 20.0 - 40.0 % AH Workflow SS MCH (RBC) [Entitic mass] 32.9 pg Normal 27.0 - 33.0 pg AH Workflow SS MCHC 34.5 G/dL Normal 32.0 - 36.0 G/dL AH Workflow SS MCV (RBC) [Entitic vol] 95.2 fL Normal 80.0 - 99.0 fL AH Workflow SS Monocytes (Bld) [#/Vol] 0.5 103/mcL Normal 0.1 - 1.4 10^3/mcL AH Workflow SS Monocytes/100 WBC (Bld) 5.8 % Normal 2.0 - 13.0 % AH Workflow SS Neutrophils (Bld) [#/Vol] 7.9 103/mcL Normal 2.3 - 8.1 10^3/mcL AH Workflow SS Neutrophils/100 WBC (Bld) 83.0 % High 50.0 - 75.0 % AH Workflow SS Platelet mean volume (Bld) [Entitic vol] 7.2 fL Normal 6.6 - 10.5 fL Workflow SS Platelets (Bld) [#/Vol] 246 103/mcL Normal 150 - 450 10^3/mcL Workflow SS Potassium [Moles/Vol] 4.2 mmol/L Normal 3.5 - 5.0 mEq/L ADM SS PT Coag (PPP) [Time] 11.6 s Normal 9.0 - 1 4.4 seconds [facility] SS Comment on above: Interpretive Data: E ffective 09/12/07, Protime results may be affected by some antibiotics (i.e. Ciprofloxacin, Azithromycin, Bactrim) which may potentiate the action of oral anticoagulants, with further increases in Protime/INR. PT International Ratio 1.0 ratio Invalid Interpretation Code [facility] Comment on above: Interpretive Data: Hai magdaleno [employer] (CHEST, 1992, 102:[id number]) recommended therapeutic range for oral anticoagulant therapy is: LOW RISK: Prophylaxis of venous thrombosis INR: 2.0-3.0 Treatment of pulmonary embolism 2.0-3.0 Prevention of systemic embolism 2.0-3.0 HIGH RISK: Mechanical prosthetic valves 2.5-3.5 RBC (Bld) [#/Vol] 4.32 106/mcL Normal 4.10 - 5.3 0 10^6/mcL Workflow SS Sodium [Moles/Vol] 141 mmol/L Normal 136 - 145 mEq/L ADM SS Urea nitrogen [Mass/Vol] 18.0 mg/dL Normal 8.0 - 22.0 mg/dL ADM SS Urea nitrogen/Creatinine [Mass ratio] 24.3 ratio High 10.0 - 22.0 ratio AH ADM SS WBC (Bld) [#/Vol] 9.5 103/mcL Normal 4.5 - 10.8 10^3/mcL Workflow SS LABORATORYOrdered By: Devon Maria on 01-30-2024 ABO and Rh group Nom (Bld) Blood group O Rh(D) positive Invalid Interpretation Code BB Auto SS Blood group antibody screen Ql Negative ABSC (01/30/24 11:23 AM) Normal BB Auto SS LABORATORYOrdered By: Zohra Beck on 01-30-2024 Base Excess -2.4 mmol/L Invalid Interpretation Code Main Rapid [facility] SS Calcium Ionized OR 1.13 mmol/L Normal 1.12 - 1. 32 mmol/L [facility] SS CO2 [Moles/Vol] 21.4 mmol/L Low 22.0 - 30.0 mmol/L [facility] SS Glucose [Mass/Vol] 166 mg/dL High 82 - 115 mg/dL [facility] SS HCO3 (Bld) [Moles/Vol] 20.4 mmol/L Low 21.0 - 29.0 mmol/L [facility] SS Hematocrit (Bld) [Volume fraction] 42.0 % Normal 37.0 - 47.0 % [facility] SS Hemoglobin OR 14.4 G/dL Normal 12.0 - 16.0 G/dL [facility] SS Oxygen (Bld) [Partial pressure] 219.0 mm[Hg] High 74.0 - 108.0 mm Hg Main Rapid Comm SS Patient Location [facility] (01/30/24 11:23 AM) Normal Chemistry S pCO2 30.3 mm[Hg] Low 32.0 - 46.0 mm Hg Main Rapid Comm SS pH (Bld) 7.447 [pH] Normal 7.380 - 7.460 [facility] SS Potassium [Moles/Vol] 3.7 mmol/L Normal 3.5 - 5.0 mEq/L [facility] SS Sodium [Moles/Vol] 136 mmol/L Normal 136 - 145 mEq/L [facility] SS LABORATORYOrdered By: Shawn Kwok on 01-30-2024 Magnesium [Mass/Vol] 1.8 mg/dL Normal 1.6 - 2 .4 mg/dL ADM SS LABORATORYOrdered By: Arash Whipple on 01-30-2024 Base Excess -1.1 mmol/L Invalid Interpretation Code Main Rapid Comm SS Calcium Ionized OR 1.14 mmol/L Normal 1.12 - 1. 32 mmol/L [facility] SS CO2 [Moles/Vol] 23.5 mmol/L Normal 22.0 - 30.0 mmol/L [facility] SS Glucose [Mass/Vol] 121 mg/dL High 82 - 115 mg/dL [facility] SS HCO3 (Bld) [Moles/Vol] 22.5 mmol/L Normal 21.0 - 29.0 mmol/L [facility] SS Hematocrit (Bld) [Volume fraction] 40.0 % Normal 37.0 - 47.0 % [facility] SS Hemoglobin OR 13.5 G/dL Normal 12.0 - 16.0 G/dL [facility] SS Magnesium [Mass/Vol] 1.7 mg/dL Normal 1.6 - 2 .4 mg/dL ADM SS Oxygen (Bld) [Partial pressure] 266.6 mm[Hg] High 74.0 - 108.0 mm Hg Main Rapid Comm SS Patient Location [facility] (01/30/24 8:58 AM) Normal Chemistry S pCO2 34.1 mm[Hg] Normal 32.0 - 46.0 mm Hg Main Rapid Comm SS pH (Bld) 7.437 [pH] Normal 7.380 - 7.460 [facility] SS Potassium [Moles/Vol] 3.4 mmol/L Low 3.5 - 5.0 mEq/L [facility] SS Sodium [Moles/Vol] 136 mmol/L Normal 136 - 145 mEq/L Main Rapid [facility] SS MGon 01-30-2024 Magnesium [Mass/Vol] 1.6 mg/dL Normal 1.6-2.4 [facility] Comment on above: Performed By: #### A DIFF, GFR, CBC, BMP, ANEU #### [address] [address] MGORon 01-30-2024 Magnesium [Mass/Vol] 1.8 mg/dL Normal 1.6-2.4 [facility] Comment on above: Performed By: #### A DIFF, GFR, CBC, BMP, ANEU #### [address] [address] Magnesium [Mass/Vol] 1.7 mg/dL Normal 1.6-2.4 [facility] Comment on above: Performed By: #### G FR, CMP, CBC, LD, ADIFF, ANEU #### [address] [address] MRI BRAIN W/ CONTRASTon MRI BRAIN W/ CONTRAST ORIGINAL EXAMINATION: MRI OF THE BRAIN WITH CONTRAST 01/30/2024 7:07 am TECHNIQUE: Multiplanar multisequence MRI of the head/brain was performed with the administration of intravenous contrast. COMPARISON: MRI brain 01/26/2024. HISTORY: ORDERING SYSTEM PROVIDED HISTORY: Reason for Exam: Stealth MRI for surgical planning FINDINGS: MRI of the brain is obtained for surgical planning with fiducial markers in place. There is multilobulated partially cystic rim enhancing mass in the right parietal/occipital region measuring up to 3.7 x 4.2 by 4.0 cm ( transverse by AP by craniocaudal) with extensive surrounding edema. There is effacement of the posterior horn of the right lateral ventricle without with about 3 mm of shift of the midline structures to the left. 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 Interpreted by: Iraj Genao Preliminary Report By: Iraj Genao Electronically signed By Iraj Genao Dictated Date: 01/30/2024 7:14:06 AM Prelim Date: 01/30/2024 7:26:17 AM Sign Date: 01/30/2024 7:26:17 AM Ordering Provider: WANG CORONADO Normal [facility] NAORon 01-30-2024 Sodium [Moles/Vol] 136 mmol/L Normal 136-145 [facility] Comment on above: Performed By: #### G FR, CMP, CBC, LD, ADIFF, ANEU #### [address] [address] Sodium [Moles/Vol] 136 mmol/L Normal 136-145 [facility] Comment on above: Performed By: #### A DIFF, GFR, CBC, BMP, ANEU #### [address] [address] PHOSon 01-30-2024 Phosphate [Mass/Vol] 4.1 mg/dL Normal 2.4-5.1 [facility] Comment on above: Result Comment: No te - New Reference Range in effect 19 Performed By: #### A DIFF, GFR, CBC, BMP, ANEU #### [address] [address] PROon 01-30-2024 INR Coag (PPP) [Relative time] 1.0 {INR} Normal [facility] Comment on above: Result Comment: [employer] (CHEST, 1992, 102:[id number]) recommended therapeutic range for oral anticoagulant therapy is: LOW RISK: Prophylaxis of venous thrombosis INR: 2.0-3.0 Treatment of pulmonary embolism 2.0-3.0 Prevention of systemic embolism 2.0-3.0 HIGH RISK: Mechanical prosthetic valves 2.5-3.5 Performed By: #### G FR, CMP, CBC, LD, ADIFF, ANEU #### [address] [address] PT Coag (PPP) [Time] 11.6 s Normal 9.0-14.4 [facility] Comment on above: Result Comment: Effe ctive 09/12/07, Protime results may be affected by some antibiotics (i.e. Ciprofloxacin, Azithromycin, Bactrim) which may potentiate the action of oral anticoagulants, with further increases in Protime/INR. Performed By: #### G FR, CMP, CBC, LD, ADIFF, ANEU #### [address] [address] .Auto Diffon 01-29-2024 Basophil, Absolute 0.0 10 3/mcL Normal 0.0-0.3 [facility] Comment on above: Performed By: #### G FR, CMP, CBC, LD, ADIFF, ANEU #### [address] [address] Basophils/100 WBC (Bld) 0.3 % Normal 0.0-2.5 [facility] Comment on above: Performed By: #### G FR, CMP, CBC, LD, ADIFF, ANEU #### [address] [address] Eosinophil, Absolute 0.0 10 3/mcL Normal 0.0-0.7 [facility] Comment on above: Performed By: #### G FR, CMP, CBC, LD, ADIFF, ANEU #### [address] [address] Eosinophils/100 WBC (Bld) 0.1 % Normal 0.0-6.0 [facility] Comment on above: Performed By: #### G FR, CMP, CBC, LD, ADIFF, ANEU #### [address] [address] Lymphocyte, Absolute 1.2 10 3/mcL Normal 0.9-4.3 [facility] Comment on above: Performed By: #### G FR, CMP, CBC, LD, ADIFF, ANEU #### [address] [address] Lymphocytes/100 WBC (Bld) 12.5 % Low 20.0-40.0 [facility] Comment on above: Performed By: #### G FR, CMP, CBC, LD, ADIFF, ANEU #### [address] [address] Monocyte, Absolute 0.6 10 3/mcL Normal 0.1-1.4 [facility] Comment on above: Performed By: #### G FR, CMP, CBC, LD, ADIFF, ANEU #### [address] [address] Monocytes/100 WBC (Bld) 6.6 % Normal 2.0-13.0 [facility] Comment on above: Performed By: #### G FR, CMP, CBC, LD, ADIFF, ANEU #### [address] [address] Neutrophils/100 WBC (Bld) 80.5 % High 50.0-75.0 [facility] Comment on above: Performed By: #### G FR, CMP, CBC, LD, ADIFF, ANEU #### [address] [address] .GFRon 01-29-2024 GFR Non- >60 Normal [facility] Comment on above: Result Comment: GFR Population mean for , Non- Americans Ages 20-29 = 116 mL/min/1.73 sq.m. Ages 30-39 = 107 mL/min/1.73 sq.m. Ages 40-49 = 99 mL/min/1.73 sq.m. Ages 50-59 = 93 mL/min/1.73 sq.m. Ages 60-69 = 85 mL/min/1.73 sq.m. Ages 70+ = 75 mL/min/1.73 sq.m. Chronic Kidney Disease: Less than 60 mL/min/1.73 square meters End Stage Renal Disease: Less than 15 mL/min/1.73 square meters Performed By: #### G FR, CMP, CBC, LD, ADIFF, ANEU #### [address] [address] GFR >60 Normal [facility] Comment on above: Result Comment: GFR Population mean for , Non- Americans Ages 20-29 = 116 mL/min/1.73 sq.m. Ages 30-39 = 107 mL/min/1.73 sq.m. Ages 40-49 = 99 mL/min/1.73 sq.m. Ages 50-59 = 93 mL/min/1.73 sq.m. Ages 60-69 = 85 mL/min/1.73 sq.m. Ages 70+ = 75 mL/min/1.73 sq.m. Chronic Kidney Disease: Less than 60 mL/min/1.73 square meters End Stage Renal Disease: Less than 15 mL/min/1.73 square meters Performed By: #### G FR, CMP, CBC, LD, ADIFF, ANEU #### [address] [address] .NEUABSon 01-29-2024 Neutrophil, Absolute 7.5 10 3/mcL Normal 2.3-8.1 [facility] Comment on above: Performed By: #### G FR, CMP, CBC, LD, ADIFF, ANEU #### [address] [address] BMPon 01-29-2024 BUN/Creatinine Ratio 23.0 ratio High 10.0-22.0 [facility] Comment on above: Performed By: #### G FR, CMP, CBC, LD, ADIFF, ANEU #### [address] [address] Calcium [Mass/Vol] 9.2 mg/dL Normal 8.7-10.4 [facility] Comment on above: Performed By: #### G FR, CMP, CBC, LD, ADIFF, ANEU #### [address] [address] Chloride [Moles/Vol] 106 mmol/L Normal 98-110 [facility] Comment on above: Performed By: #### G FR, CMP, CBC, LD, ADIFF, ANEU #### [address] [address] CO2 [Moles/Vol] 24 mmol/L Normal 22-32 [facility] Comment on above: Performed By: #### G FR, CMP, CBC, LD, ADIFF, ANEU #### [address] [address] Creatinine [Mass/Vol] 0.74 mg/dL Normal 0.50-1.20 [facility] Comment on above: Result Comment: Test ing performed on Numecent analyzer using enzymatic creatinine methodology. Performed By: #### G FR, CMP, CBC, LD, ADIFF, ANEU #### [address] [address] Electrolyte Balance 11.0 mEq/L Normal 4.0-15.0 [facility] Comment on above: Performed By: #### G FR, CMP, CBC, LD, ADIFF, ANEU #### [address] [address] Glucose [Mass/Vol] 183 mg/dL High 82-115 [facility] Comment on above: Performed By: #### G FR, CMP, CBC, LD, ADIFF, ANEU #### [address] [address] Potassium [Moles/Vol] 4.0 mmol/L Normal 3.5-5.0 [facility] Comment on above: Performed By: #### G FR, CMP, CBC, LD, ADIFF, ANEU #### [address] [address] Sodium [Moles/Vol] 141 mmol/L Normal 136-145 [facility] Comment on above: Performed By: #### G FR, CMP, CBC, LD, ADIFF, ANEU #### [address] [address] Urea nitrogen [Mass/Vol] 17.0 mg/dL Normal 8.0-22.0 [facility] Comment on above: Performed By: #### G FR, CMP, CBC, LD, ADIFF, ANEU #### [place] [address] CBCon 01-29-2024 Erythrocyte distribution width (RBC) [Ratio] 13.2 % Normal 11.5-15.5 [facility] Comment on above: Performed By: #### G FR, CMP, CBC, LD, ADIFF, ANEU #### [place] [address] Hematocrit (Bld) [Volume fraction] 41.4 % Normal 34.0-46.0 [facility] Comment on above: Performed By: #### G FR, CMP, CBC, LD, ADIFF, ANEU #### [place] [address] Hgb 14.6 G/dL Normal 12.0-16.0 [facility] Comment on above: Performed By: #### G FR, CMP, CBC, LD, ADIFF, ANEU #### [place] [address] MCH (RBC) [Entitic mass] 33.3 pg High 27.0-33.0 [facility] Comment on above: Performed By: #### G FR, CMP, CBC, LD, ADIFF, ANEU #### [place] [address] MCHC 35.2 G/dL Normal 32.0-36.0 [facility] Comment on above: Performed By: #### G FR, CMP, CBC, LD, ADIFF, ANEU #### [place] [address] MCV (RBC) [Entitic vol] 94.7 fL Normal 80.0-99.0 [facility] Comment on above: Performed By: #### G FR, CMP, CBC, LD, ADIFF, ANEU #### [place] [id number] Platelet 236 10 3/mcL Normal 150-450 [facility] Comment on above: Performed By: #### G FR, CMP, CBC, LD, ADIFF, ANEU #### [place] [address] Platelet mean volume (Bld) [Entitic vol] 7.4 fL Normal 6.6-10.5 [facility] Comment on above: Performed By: #### G FR, CMP, CBC, LD, ADIFF, ANEU #### [address] [address] RBC 4.37 10 6/mcL Normal 4.10-5.30 [facility] Comment on above: Performed By: #### G FR, CMP, CBC, LD, ADIFF, ANEU #### [address] [address] WBC 9.4 10 3/mcL Normal 4.5-10.8 [facility] Comment on above: Performed By: #### G FR, CMP, CBC, LD, ADIFF, ANEU #### [address] [address] .Auto Diffon 01-28-2024 Basophil, Absolute 0.0 10 3/mcL Normal 0.0-0.3 [facility] Comment on above: Performed By: #### A DIFF, GFR, CBC, BMP, ANEU #### [place] [address] Basophils/100 WBC (Bld) 0.1 % Normal 0.0-2.5 [facility] Comment on above: Performed By: #### A DIFF, GFR, CBC, BMP, ANEU #### [address] [address] Eosinophil, Absolute 0.0 10 3/mcL Normal 0.0-0.7 [facility] Comment on above: Performed By: #### A DIFF, GFR, CBC, BMP, ANEU #### [address] [address] Eosinophils/100 WBC (Bld) 0.2 % Normal 0.0-6.0 [facility] Comment on above: Performed By: #### A DIFF, GFR, CBC, BMP, ANEU #### [place] [address] Lymphocyte, Absolute 1.1 10 3/mcL Normal 0.9-4.3 [facility] Comment on above: Performed By: #### A DIFF, GFR, CBC, BMP, ANEU #### [address] [address] Lymphocytes/100 WBC (Bld) 11.9 % Low 20.0-40.0 [facility] Comment on above: Performed By: #### A DIFF, GFR, CBC, BMP, ANEU #### [address] [address] Monocyte, Absolute 0.5 10 3/mcL Normal 0.1-1.4 [facility] Comment on above: Performed By: #### A DIFF, GFR, CBC, BMP, ANEU #### [address] [address] Monocytes/100 WBC (Bld) 5.7 % Normal 2.0-13.0 [facility] Comment on above: Performed By: #### A DIFF, GFR, CBC, BMP, ANEU #### [address] [address] Neutrophils/100 WBC (Bld) 82.1 % High 50.0-75.0 [facility] Comment on above: Performed By: #### A DIFF, GFR, CBC, BMP, ANEU #### [address] [address] .GFRon 01-28-2024 GFR >60 Normal [facility] Comment on above: Result Comment: GFR Population mean for , Non- Americans Ages 20-29 = 116 mL/min/1.73 sq.m. Ages 30-39 = 107 mL/min/1.73 sq.m. Ages 40-49 = 99 mL/min/1.73 sq.m. Ages 50-59 = 93 mL/min/1.73 sq.m. Ages 60-69 = 85 mL/min/1.73 sq.m. Ages 70+ = 75 mL/min/1.73 sq.m. Chronic Kidney Disease: Less than 60 mL/min/1.73 square meters End Stage Renal Disease: Less than 15 mL/min/1.73 square meters Performed By: #### G FR, CMP, CBC, LD, ADIFF, ANEU #### [address] [address] GFR Non- >60 Normal [facility] Comment on above: Result Comment: GFR Population mean for , Non- Americans Ages 20-29 = 116 mL/min/1.73 sq.m. Ages 30-39 = 107 mL/min/1.73 sq.m. Ages 40-49 = 99 mL/min/1.73 sq.m. Ages 50-59 = 93 mL/min/1.73 sq.m. Ages 60-69 = 85 mL/min/1.73 sq.m. Ages 70+ = 75 mL/min/1.73 sq.m. Chronic Kidney Disease: Less than 60 mL/min/1.73 square meters End Stage Renal Disease: Less than 15 mL/min/1.73 square meters Performed By: #### G FR, CMP, CBC, LD, ADIFF, ANEU #### [address] [address] .NEUABSon 01-28-2024 Neutrophil, Absolute 7.6 10 3/mcL Normal 2.3-8.1 [facility] Comment on above: Performed By: #### A DIFF, GFR, CBC, BMP, ANEU #### [address] [address] [facility] 01-28-2024 BUN/Creatinine Ratio 24.3 ratio High 10.0-22.0 [facility] Comment on above: Performed By: #### A DIFF, GFR, CBC, BMP, ANEU #### [address] [address] Calcium [Mass/Vol] 9.2 mg/dL Normal 8.7-10.4 [facility] Comment on above: Performed By: #### A DIFF, GFR, CBC, BMP, ANEU #### [address] [address] Chloride [Moles/Vol] 106 mmol/L Normal 98-110 [facility] Comment on above: Performed By: #### A DIFF, GFR, CBC, BMP, ANEU #### [address] [address] CO2 [Moles/Vol] 25 mmol/L Normal 22-32 [facility] Comment on above: Performed By: #### A DIFF, GFR, CBC, BMP, ANEU #### [address] [address] Creatinine [Mass/Vol] 0.74 mg/dL Normal 0.50-1.20 [facility] Comment on above: Result Comment: Test ing performed on Numecent analyzer using enzymatic creatinine methodology. Performed By: #### A DIFF, GFR, CBC, BMP, ANEU #### [place] [id number] Electrolyte Balance 9.0 mEq/L Normal 4.0-15.0 [facility] Comment on above: Performed By: #### A DIFF, GFR, CBC, BMP, ANEU #### [place] [id number] Glucose [Mass/Vol] 231 mg/dL High 82-115 [facility] Comment on above: Performed By: #### A DIFF, GFR, CBC, BMP, ANEU #### [place] [id number] Potassium [Moles/Vol] 4.0 mmol/L Normal 3.5-5.0 [facility] Comment on above: Performed By: #### A DIFF, GFR, CBC, BMP, ANEU #### [place] [id number] Sodium [Moles/Vol] 140 mmol/L Normal 136-145 [facility] Comment on above: Performed By: #### A DIFF, GFR, CBC, BMP, ANEU #### [place] [id number] Urea nitrogen [Mass/Vol] 18.0 mg/dL Normal 8.0-22.0 [facility] Comment on above: Performed By: #### A DIFF, GFR, CBC, BMP, ANEU #### [address] [address] CBCon 01-28-2024 Erythrocyte distribution width (RBC) [Ratio] 13.2 % Normal 11.5-15.5 [facility] Comment on above: Performed By: #### A DIFF, GFR, CBC, BMP, ANEU #### [place] [id number] Hematocrit (Bld) [Volume fraction] 40.0 % Normal 34.0-46.0 [facility] Comment on above: Performed By: #### A DIFF, GFR, CBC, BMP, ANEU #### [place] [address] Hgb 14.1 G/dL Normal 12.0-16.0 [facility] Comment on above: Performed By: #### A DIFF, GFR, CBC, BMP, ANEU #### [place] [address] MCH (RBC) [Entitic mass] 33.6 pg High 27.0-33.0 [facility] Comment on above: Performed By: #### A DIFF, GFR, CBC, BMP, ANEU #### [place] [address] MCHC 35.2 G/dL Normal 32.0-36.0 [facility] Comment on above: Performed By: #### A DIFF, GFR, CBC, BMP, ANEU #### [place] [address] MCV (RBC) [Entitic vol] 95.7 fL Normal 80.0-99.0 [facility] Comment on above: Performed By: #### A DIFF, GFR, CBC, BMP, ANEU #### [place] [address] Platelet 226 10 3/mcL Normal 150-450 [facility] Comment on above: Performed By: #### A DIFF, GFR, CBC, BMP, ANEU #### [place] [address] Platelet mean volume (Bld) [Entitic vol] 7.9 fL Normal 6.6-10.5 [facility] Comment on above: Performed By: #### A DIFF, GFR, CBC, BMP, ANEU #### [place] [address] RBC 4.18 10 6/mcL Normal 4.10-5.30 [facility] Comment on above: Performed By: #### A DIFF, GFR, CBC, BMP, ANEU #### [place] [address] WBC 9.2 10 3/mcL Normal 4.5-10.8 [facility] Comment on above: Performed By: #### A DIFF, GFR, CBC, BMP, ANEU #### [place] [id number] [place] [address] CT ANGIOGRAPHY HEAD W/ CONTR Bailey 01-28-2024 CT ANGIOGRAPHY HEAD W/ CONTRAST ORIGINAL EXAMINATION: CTA OF THE HEAD WITH CONTRAST 01/28/2024 4:52 pm: TECHNIQUE: CTA of the head/brain was performed with the administration of intravenous contrast. Multiplanar reformatted images are provided for review. MIP images are provided for review. Automated exposure control, iterative reconstruction, and/or weight based adjustment of the mA/kV was utilized to reduce the radiation dose to as low as reasonably achievable. COMPARISON: MRI brain with and without contrast 01/26/2024. Of HISTORY: ORDERING SYSTEM PROVIDED HISTORY: Reason for Exam: eval brain tumor, pre-op. pt complaints of left sided weakness brain tumor blood supply FINDINGS: ANTERIOR CIRCULATION: No significant stenosis of the intracranial internal carotid, anterior cerebral, or middle cerebral arteries. No aneurysm. POSTERIOR CIRCULATION: No significant stenosis of the vertebral, basilar, or posterior cerebral arteries. No aneurysm. OTHER: No dural venous sinus thrombosis on this non-dedicated study. BRAIN: There is redemonstration of a rim enhancing right parietal mass lesion better visualized and described on recent prior MRI which appears supplied via small distal cortical vessels primarily arising from the distal right anterior cerebral artery and possibly distal cortical branches arising from the right posterior cerebral artery. IMPRESSION: 1. Right parietal rim enhancing mass lesion appears supplied via distal cortical branches arising proximally from the right anterior cerebral artery and likely also the right posterior cerebral artery. 2. No evidence of large vessel occlusion or significant intracranial atherosclerotic disease resulting in flow limiting stenosis. Interpreted by: Mauro Power Preliminary Report By: Mauro Power Electronically signed By Mauro Power Dictated Date: 01/28/2024 5:07:14 PM Prelim Date: 01/28/2024 5:17:38 PM Sign Date: 01/28/2024 5:17:38 PM Ordering Provider: ROSEMARIE TINEO Normal [facility] .Auto Diffon 01-27-2024 Basophil, Absolute 0.0 10 3/mcL Normal 0.0-0.3 [facility] Comment on above: Performed By: #### A DIFF, GFR, CBC, BMP, ANEU #### [address] [address] Basophils/100 WBC (Bld) 0.2 % Normal 0.0-2.5 [facility] Comment on above: Performed By: #### A DIFF, GFR, CBC, BMP, ANEU #### [address] [address] Eosinophil, Absolute 0.0 10 3/mcL Normal 0.0-0.7 [facility] Comment on above: Performed By: #### A DIFF, GFR, CBC, BMP, ANEU #### [address] [address] Eosinophils/100 WBC (Bld) 0.1 % Normal 0.0-6.0 [facility] Comment on above: Performed By: #### A DIFF, GFR, CBC, BMP, ANEU #### [address] [address] Lymphocyte, Absolute 1.2 10 3/mcL Normal 0.9-4.3 [facility] Comment on above: Performed By: #### A DIFF, GFR, CBC, BMP, ANEU #### [address] [address] Lymphocytes/100 WBC (Bld) 10.2 % Low 20.0-40.0 [facility] Comment on above: Performed By: #### A DIFF, GFR, CBC, BMP, ANEU #### [address] [address] Monocyte, Absolute 0.5 10 3/mcL Normal 0.1-1.4 [facility] Comment on above: Performed By: #### A DIFF, GFR, CBC, BMP, ANEU #### [address] [address] Monocytes/100 WBC (Bld) 4.4 % Normal 2.0-13.0 [facility] Comment on above: Performed By: #### A DIFF, GFR, CBC, BMP, ANEU #### [address] [address] Neutrophils/100 WBC (Bld) 85.1 % High 50.0-75.0 [facility] Comment on above: Performed By: #### A DIFF, GFR, CBC, BMP, ANEU #### [address] [address] .GFRon 01-27-2024 GFR Non- >60 [facility] Comment on above: Result Comment: GFR Population mean for , Non- Americans Ages 20-29 = 116 mL/min/1.73 sq.m. Ages 30-39 = 107 mL/min/1.73 sq.m. Ages 40-49 = 99 mL/min/1.73 sq.m. Ages 50-59 = 93 mL/min/1.73 sq.m. Ages 60-69 = 85 mL/min/1.73 sq.m. Ages 70+ = 75 mL/min/1.73 sq.m. Chronic Kidney Disease: Less than 60 mL/min/1.73 square meters End Stage Renal Disease: Less than 15 mL/min/1.73 square meters Performed By: #### A DIFF, GFR, CBC, BMP, ANEU #### [address] [address] GFR >[address] [facility] Comment on above: Result Comment: GFR Population mean for , Non- Americans Ages 20-29 = 116 mL/min/1.73 sq.m. Ages 30-39 = 107 mL/min/1.73 sq.m. Ages 40-49 = 99 mL/min/1.73 sq.m. Ages 50-59 = 93 mL/min/1.73 sq.m. Ages 60-69 = 85 mL/min/1.73 sq.m. Ages 70+ = 75 mL/min/1.73 sq.m. Chronic Kidney Disease: Less than 60 mL/min/1.73 square meters End Stage Renal Disease: Less than 15 mL/min/1.73 square meters Performed By: #### A DIFF, GFR, CBC, BMP, ANEU #### [address] [address] .NEUABSon 01-27-2024 Neutrophil, Absolute 10.0 10 3/mcL High 2.3-8.1 [facility] Comment on above: Performed By: #### A DIFF, GFR, CBC, BMP, ANEU #### [address] [address] A1Con 01-27-2024 Glucose [Mass/Vol] 151 mg/dL Normal [facility] Comment on above: Result Comment: Kathryn mated Average Glucose calculated by equation ((28.7xA1C)-46.7) Estimated average glucose (eAG) is a calculated value from Hemoglobin A1C and is claims service representative of the average blood glucose level in the last 2-3 month period. Normal range: less than 114 mg/dL Performed By: #### A DIFF, GFR, CBC, BMP, ANEU #### [address] [address] HbA1c (Bld) [Mass fraction] 6.9 % High 4.0-6.0 [facility] Comment on above: Performed By: #### A DIFF, GFR, CBC, BMP, ANEU #### [address] [address] [facility] 01-27-2024 BUN/Creatinine Ratio 20.9 ratio Normal 10.0-22.0 [facility] Comment on above: Performed By: #### A DIFF, GFR, CBC, BMP, ANEU #### [place] [id number] Calcium [Mass/Vol] 9.4 mg/dL Normal 8.7-10.4 [facility] Comment on above: Performed By: #### A DIFF, GFR, CBC, BMP, ANEU #### [place] [id number] Chloride [Moles/Vol] 103 mmol/L Normal 98-110 [facility] Comment on above: Performed By: #### A DIFF, GFR, CBC, BMP, ANEU #### [address] [address] CO2 [Moles/Vol] 27 mmol/L Normal 22-32 [facility] Comment on above: Performed By: #### A DIFF, GFR, CBC, BMP, ANEU #### [address] [address] Creatinine [Mass/Vol] 0.91 mg/dL Normal 0.50-1.20 [facility] Comment on above: Result Comment: Test ing performed on Numecent analyzer using enzymatic creatinine methodology. Performed By: #### A DIFF, GFR, CBC, BMP, ANEU #### [address] [address] Electrolyte Balance 10.0 mEq/L Normal 4.0-15.0 [facility] Comment on above: Performed By: #### A DIFF, GFR, CBC, BMP, ANEU #### [place] [id number] Glucose [Mass/Vol] 231 mg/dL High 82-115 [facility] Comment on above: Performed By: #### A DIFF, GFR, CBC, BMP, ANEU #### [place] [id number] Potassium [Moles/Vol] 4.1 mmol/L Normal 3.5-5.0 [facility] Comment on above: Performed By: #### A DIFF, GFR, CBC, BMP, ANEU #### [place] [address] Sodium [Moles/Vol] 140 mmol/L Normal 136-145 [facility] Comment on above: Performed By: #### A DIFF, GFR, CBC, BMP, ANEU #### [place] [address] Urea nitrogen [Mass/Vol] 19.0 mg/dL Normal 8.0-22.0 [facility] Comment on above: Performed By: #### A DIFF, GFR, CBC, BMP, ANEU #### [place] [id number] CBCon 01-27-2024 Erythrocyte distribution width (RBC) [Ratio] 13.1 % Normal 11.5-15.5 [facility] Comment on above: Performed By: #### A DIFF, GFR, CBC, BMP, ANEU #### [address] [address] Hematocrit (Bld) [Volume fraction] 39.7 % Normal 34.0-46.0 [facility] Comment on above: Performed By: #### A DIFF, GFR, CBC, BMP, ANEU #### [address] [address] Hgb 14.0 G/dL Normal 12.0-16.0 [facility] Comment on above: Performed By: #### A DIFF, GFR, CBC, BMP, ANEU #### [address] [address] MCH (RBC) [Entitic mass] 33.4 pg High 27.0-33.0 [facility] Comment on above: Performed By: #### A DIFF, GFR, CBC, BMP, ANEU #### [address] [address] MCHC 35.2 G/dL Normal 32.0-36.0 [facility] Comment on above: Performed By: #### A DIFF, GFR, CBC, BMP, ANEU #### [address] [address] MCV (RBC) [Entitic vol] 94.8 fL Normal 80.0-99.0 [facility] Comment on above: Performed By: #### A DIFF, GFR, CBC, BMP, ANEU #### [place] [id number] Platelet 240 10 3/mcL Normal 150-450 [facility] Comment on above: Performed By: #### A DIFF, GFR, CBC, BMP, ANEU #### [address] [address] Platelet mean volume (Bld) [Entitic vol] 7.5 fL Normal 6.6-10.5 [facility] Comment on above: Performed By: #### A DIFF, GFR, CBC, BMP, ANEU #### [address] [address] RBC 4.19 10 6/mcL Normal 4.10-5.30 [facility] Comment on above: Performed By: #### A DIFF, GFR, CBC, BMP, ANEU #### [address] [address] WBC 11.7 10 3/mcL High 4.5-10.8 [facility] Comment on above: Performed By: #### A DIFF, GFR, CBC, BMP, ANEU #### [facility] [address] [place] [address] LABORATORYOrdered By: SYSTEM SYSTEM on 01-27-2024 Glucose [Mass/Vol] 151 mg/dL Invalid Interpretation Code [employer] SS Comment on above: Interpretive Data: E stimated average glucose (eAG) is a calculated value from Hemoglobin A1C and is claims service representative of the average blood glucose level in the last 2-3 month period. Normal range: less than 114 mg/dL HbA1c (Bld) [Mass fraction] 6.9 % High 4.0 - 6.0 % Auto Chem SS MRI BRAIN W/ + W/O CONTRASTo n 01-27-2024 MRI BRAIN W/ + W/O CONTRAST ORIGINAL HISTORY: Brain mass COMPARISON: No TECHNIQUE: 1. Sagittal and axial T1-weighted images. 2. Axial FLAIR images. 3. Axial T2-weighted and T2*-weighted images. 4. Axial diffusion-weighted images with ADC map. 5. Axial, sagittal and coronal T1-weighted images following uncomplicated administration of intravenous gadolinium contrast. FINDINGS: There is an irregular rim enhancing lesion centered in the right parietal lobe with a maximum diameter of approximately 4 cm. There is T2 hyperintensity surrounding the area of enhancement, extending anterior to the enhance sing component and into the occipital lobe. Signal change extends into the posterior hippocampus and the splenium; there is minimal amount of T2 hyperintensity extending into the left splenium. The T2 hyperintense area measures approximately 6.2 cm in maximum diameter. There is mass effect, with effacement of the posterior right lateral ventricle and adjacent occipital sulci. There is no associated restriction of diffusion. Otherwise, the ventricles and sulci are normal to mildly enlarged. There are mild scattered punctate and nodular T2 hyperintensities in the cerebral white matter. 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 Interpreted by: Jose Bowman MD Preliminary Report By: Jose Bowman MD Electronically signed By Jose Bowman MD Dictated Date: 01/27/2024 8:43:28 AM Prelim Date: 01/27/2024 8:47:58 AM Sign Date: 01/27/2024 8:47:58 AM Ordering Provider: MADIHA ZHANG [facility] MAIN MRI BRAIN W/ CONTRASTon 12-30 MRI BRAIN W/ CONTRAST ORIGINAL HISTORY: Surgical planning COMPARISON: Earlier same day TECHNIQUE: 1. Axial T2-weighted images. 2. Axial, sagittal and coronal T1-weighted images following uncomplicated administration of intravenous gadolinium contrast. FINDINGS: MR of the brain is obtained for surgical planning. There are no fiducial markers. There is a right parietal/occipital mass containing areas of enhancement and necrosis. IMPRESSION: MR of the brain obtained for surgical planning Interpreted by: Jose Bowman MD Preliminary Report By: Jose Bowman MD Electronically signed By Jose Bowman MD Dictated Date: 01/27/2024 8:48:08 AM Prelim Date: 01/27/2024 8:49:03 AM Sign Date: 01/27/2024 8:49:03 AM Ordering Provider: MADIHA Danielle [facility] .Auto Diffon 01-26-2024 Basophil, Absolute 0.0 10 3/mcL Normal 0.0-0.3 [facility] Comment on above: Performed By: #### G FR, CMP, CBC, LD, ADIFF, ANEU #### [address] [address] Basophils/100 WBC (Bld) 0.2 % Normal 0.0-2.5 [facility] Comment on above: Performed By: #### G FR, CMP, CBC, LD, ADIFF, ANEU #### [address] [address] Eosinophil, Absolute 0.0 10 3/mcL Normal 0.0-0.7 [facility] Comment on above: Performed By: #### G FR, CMP, CBC, LD, ADIFF, ANEU #### [address] [address] Eosinophils/100 WBC (Bld) 0.0 % Normal 0.0-6.0 [facility] Comment on above: Performed By: #### G FR, CMP, CBC, LD, ADIFF, ANEU #### [address] [address] Lymphocyte, Absolute 0.8 10 3/mcL Low 0.9-4.3 [facility] Comment on above: Performed By: #### G FR, CMP, CBC, LD, ADIFF, ANEU #### [address] [address] Lymphocytes/100 WBC (Bld) 9.1 % Low 20.0-40.0 [facility] Comment on above: Performed By: #### G FR, CMP, CBC, LD, ADIFF, ANEU #### [address] [address] Monocyte, Absolute 0.4 10 3/mcL Normal 0.1-1.4 [facility] Comment on above: Performed By: #### G FR, CMP, CBC, LD, ADIFF, ANEU #### [address] [address] Monocytes/100 WBC (Bld) 4.7 % Normal 2.0-13.0 [facility] Comment on above: Performed By: #### G FR, CMP, CBC, LD, ADIFF, ANEU #### [address] [address] Neutrophils/100 WBC (Bld) 86.0 % High 50.0-75.0 [facility] Comment on above: Performed By: #### G FR, CMP, CBC, LD, ADIFF, ANEU #### [address] [address] .GFRon 01-26-2024 GFR >[address] [facility]IN Comment on above: Result Comment: GFR Population mean for , Non- Americans Ages 20-29 = 116 mL/min/1.73 sq.m. Ages 30-39 = 107 mL/min/1.73 sq.m. Ages 40-49 = 99 mL/min/1.73 sq.m. Ages 50-59 = 93 mL/min/1.73 sq.m. Ages 60-69 = 85 mL/min/1.73 sq.m. Ages 70+ = 75 mL/min/1.73 sq.m. Chronic Kidney Disease: Less than 60 mL/min/1.73 square meters End Stage Renal Disease: Less than 15 mL/min/1.73 square meters Performed By: #### G FR, CMP, CBC, LD, ADIFF, ANEU #### [address] [address] GFR Non- >60 [facility]IN Comment on above: Result Comment: GFR Population mean for , Non- Americans Ages 20-29 = 116 mL/min/1.73 sq.m. Ages 30-39 = 107 mL/min/1.73 sq.m. Ages 40-49 = 99 mL/min/1.73 sq.m. Ages 50-59 = 93 mL/min/1.73 sq.m. Ages 60-69 = 85 mL/min/1.73 sq.m. Ages 70+ = 75 mL/min/1.73 sq.m. Chronic Kidney Disease: Less than 60 mL/min/1.73 square meters End Stage Renal Disease: Less than 15 mL/min/1.73 square meters Performed By: #### G FR, CMP, CBC, LD, ADIFF, ANEU #### [address] [address] .NEUABSon 01-26-2024 Neutrophil, Absolute 7.9 10 3/mcL Normal 2.3-8.1 [facility] Comment on above: Performed By: #### G FR, CMP, CBC, LD, ADIFF, ANEU #### [address] [address] APTTon 01-26-2024 aPTT Coag (Bld) [Time] 27.5 s Normal 25.0-35.0 [facility] Comment on above: Result Comment: For Heparin anticoagulation therapy, the recommended therapeutic range is: 54-77 seconds (APTT Correlation with Anti-Xa therapeutic range of 0.3-0.7 units/ml). PLEASE REFERENCE THE PHARMACY PROTOCOL FOR DOSING. Performed By: #### G FR, CMP, CBC, LD, ADIFF, ANEU #### [address] [address] BMPon 01-26-2024 BUN/Creatinine Ratio 15.6 ratio Normal 10.0-22.0 [facility] Comment on above: Performed By: #### G FR, CMP, CBC, LD, ADIFF, ANEU #### [address] [address] Calcium [Mass/Vol] 9.2 mg/dL Normal 8.7-10.4 [facility] Comment on above: Performed By: #### G FR, CMP, CBC, LD, ADIFF, ANEU #### [address] [address] Chloride [Moles/Vol] 107 mmol/L Normal 98-110 [facility] Comment on above: Performed By: #### G FR, CMP, CBC, LD, ADIFF, ANEU #### [address] [address] CO2 [Moles/Vol] 26 mmol/L Normal 22-32 [facility] Comment on above: Performed By: #### G FR, CMP, CBC, LD, ADIFF, ANEU #### [address] [address] Creatinine [Mass/Vol] 0.77 mg/dL Normal 0.50-1.20 [facility] Comment on above: Result Comment: Test ing performed on Numecent analyzer using enzymatic creatinine methodology. Performed By: #### G FR, CMP, CBC, LD, ADIFF, ANEU #### [address] [address] Electrolyte Balance 8.0 mEq/L Normal 4.0-15.0 [facility] Comment on above: Performed By: #### G FR, CMP, CBC, LD, ADIFF, ANEU #### [address] [address] Glucose [Mass/Vol] 276 mg/dL High 82-115 [facility] Comment on above: Performed By: #### G FR, CMP, CBC, LD, ADIFF, ANEU #### [address] [address] Potassium [Moles/Vol] 4.0 mmol/L Normal 3.5-5.0 [facility] Comment on above: Performed By: #### G FR, CMP, CBC, LD, ADIFF, ANEU #### [address] [address] Sodium [Moles/Vol] 141 mmol/L Normal 136-145 [facility] Comment on above: Performed By: #### G FR, CMP, CBC, LD, ADIFF, ANEU #### [address] [address] Urea nitrogen [Mass/Vol] 12.0 mg/dL Normal 8.0-22.0 [facility] Comment on above: Performed By: #### G FR, CMP, CBC, LD, ADIFF, ANEU #### [place] [address] CBCon 01-26-2024 Erythrocyte distribution width (RBC) [Ratio] 12.9 % Normal 11.5-15.5 [facility] Comment on above: Performed By: #### G FR, CMP, CBC, LD, ADIFF, ANEU #### [place] [address] Hematocrit (Bld) [Volume fraction] 40.8 % Normal 34.0-46.0 [facility] [facility] Comment on above: Performed By: #### G FR, CMP, CBC, LD, ADIFF, ANEU #### [place] [address] Hgb 14.1 G/dL Normal 12.0-16.0 [facility] Comment on above: Performed By: #### G FR, CMP, CBC, LD, ADIFF, ANEU #### [place] [address] MCH (RBC) [Entitic mass] 33.4 pg High 27.0-33.0 [facility] Comment on above: Performed By: #### G FR, CMP, CBC, LD, ADIFF, ANEU #### [place] [address] MCHC 34.6 G/dL Normal 32.0-36.0 [facility] Comment on above: Performed By: #### G FR, CMP, CBC, LD, ADIFF, ANEU #### [place] [address] MCV (RBC) [Entitic vol] 96.4 fL Normal 80.0-99.0 [facility] Comment on above: Performed By: #### G FR, CMP, CBC, LD, ADIFF, ANEU #### [place] [address] Platelet 223 10 3/mcL Normal 150-450 [facility] Comment on above: Performed By: #### G FR, CMP, CBC, LD, ADIFF, ANEU #### [place] [address] Platelet mean volume (Bld) [Entitic vol] 7.4 fL Normal 6.6-10.5 [facility] Comment on above: Performed By: #### G FR, CMP, CBC, LD, ADIFF, ANEU #### [place] [id number] [place] [address] RBC 4.23 10 6/mcL Normal 4.10-5.30 [facility] Comment on above: Performed By: #### G FR, CMP, CBC, LD, ADIFF, ANEU #### [place] [address] WBC 9.1 10 3/mcL Normal 4.5-10.8 [facility] Comment on above: Performed By: #### G FR, CMP, CBC, LD, ADIFF, ANEU #### [place] [address] FIBon 01-26-2024 Fibrinogen 395 mg/dL Normal 250-560 [facility] Comment on above: Performed By: #### G FR, CMP, CBC, LD, ADIFF, ANEU #### [place] [address] LABORATORYOrdered By: Ara Bernal on 01-26-2024 Glucose [Mass/Vol] 253 mg/dL [facility] Work Phone: LABORATORYOrdered By: Kevin Mendoza on 01-26-2024 Appearance (U) Clear (01/26/24 7:46 AM) Normal Clear Auto Urine SS Bilirubin Ql (U) Negative (01/26/24 7:46 AM) Normal Neg-Trace AH Auto Urine SS Color (U) Yellow (01/26/24 7:46 AM) Normal AH Auto Urine SS Glucose Test strip (U) [Mass/Vol] >=1000 mg/dL Invalid Interpretation Code Negative AH Auto Urine SS Hemoglobin Auto test strip (U) [Mass/Vol] Negative (01/26/24 7:46 AM) Normal Neg-Trace AH Auto Urine SS Ketones Ql (U) Negative Normal Neg-Trace AH Auto Urine SS UA Leuk Est Negative (01/26/24 7:46 AM) Normal Negative Auto Urine SS UA Nitrite Negative (01/26/24 7:46 AM) Normal Negative AH Auto Urine SS UA pH 7.0 (01/26/24 7:46 AM) Normal 5.0 - 8.0 AH Auto Urine SS UA Protein Negative Normal Negative Auto Urine SS UA Spec Grav 1.020 (01/26/24 7:46 AM) Normal 1.006-1.029 Auto Urine SS UA Specimen Type Not Given (01/26/24 7:46 AM) Normal Auto Urine SS UA Urobilinogen 1.0 E.U./dL Normal 0.2-1.0 Auto Urine SS LABORATORYOrdered By: SYSTEM SYSTEM on 01-26-2024 aPTT Coag (Bld) [Time] 27.5 s Normal 25.0 - 35.0 seconds [facility] Comment on above: Interpretive Data: F or Heparin anticoagulation therapy, the recommended therapeutic range is: 54-77 seconds (APTT Correlation with Anti-Xa therapeutic range of 0.3-0.7 units/ml). PLEASE REFERENCE THE PHARMACY PROTOCOL FOR DOSING. Fibrinogen 395 mg/dL Normal 250 - 560 [facility] ([facility] [Time] 11.7 s Normal 9.0 - 1 4.4 seconds [facility] Comment on above: Interpretive Data: E ffective 09/12/07, Protime results may be affected by some antibiotics (i.e. Ciprofloxacin, Azithromycin, Bactrim) which may potentiate the action of oral anticoagulants, with further increases in Protime/INR. PT International Ratio 1.0 ratio Invalid Interpretation Code [facility] Comment on above: Interpretive Data: Hai magdaleno [employer] (CHEST, 1991, 102:312S-25S) recommended therapeutic range for oral anticoagulant therapy is: LOW RISK: Prophylaxis of venous thrombosis INR: 2.0-3.0 Treatment of pulmonary embolism 2.0-3.0 Prevention of systemic embolism 2.0-3.0 HIGH RISK: Mechanical prosthetic valves 2.5-3.5 PROon 01-26-2024 INR Coag (PPP) [Relative time] 1.0 {INR} Normal [facility] Comment on above: Result Comment: [employer] (CHEST, 1992, 102:312S-25S) recommended therapeutic range for oral anticoagulant therapy is: LOW RISK: Prophylaxis of venous thrombosis INR: 2.0-3.0 Treatment of pulmonary embolism 2.0-3.0 Prevention of systemic embolism 2.0-3.0 HIGH RISK: Mechanical prosthetic valves 2.5-3.5 Performed By: #### G FR, CMP, CBC, LD, ADIFF, ANEU #### [place] [address] PT Coag (PPP) [Time] 11.7 s Normal 9.0-14.4 [facility] Comment on above: Result Comment: Effe ctive 09/12/07, Protime results may be affected by some antibiotics (i.e. Ciprofloxacin, Azithromycin, Bactrim) which may potentiate the action of oral anticoagulants, with further increases in Protime/INR. Performed By: #### G FR, CMP, CBC, LD, ADIFF, ANEU #### [place] [address] UAon 01-26-2024 Color (U) Yellow Normal [facility] Comment on above: Performed By: #### G FR, CMP, CBC, LD, ADIFF, ANEU #### [place] [address] Glucose (U) [Mass/Vol] mg/dL Abnormal Negative [facility] Comment on above: Performed By: #### G FR, CMP, CBC, LD, ADIFF, ANEU #### [place] [address] Ketones Ql (U) Negative Normal Neg-Trace [facility] Comment on above: Performed By: #### G FR, CMP, CBC, LD, ADIFF, ANEU #### [place] [address] UA Appear Clear Normal Clear [facility] Comment on above: Performed By: #### G FR, CMP, CBC, LD, ADIFF, ANEU #### [place] [address] UA Blood Negative Normal Neg-Trace [facility] Comment on above: Performed By: #### G FR, CMP, CBC, LD, ADIFF, ANEU #### [place] [address] UA Leuk Est Negative Normal Negative [facility] Comment on above: Performed By: #### G FR, CMP, CBC, LD, ADIFF, ANEU #### [place] [address] UA Nitrite Negative Normal Negative [facility] Comment on above: Performed By: #### G FR, CMP, CBC, LD, ADIFF, ANEU #### [place] [address] UA pH 7.0 Normal 5.0 - 8.0 [facility] Comment on above: Performed By: #### G FR, CMP, CBC, LD, ADIFF, ANEU #### [place] [address] UA Protein Negative Normal Negative [facility] Comment on above: Performed By: #### G FR, CMP, CBC, LD, ADIFF, ANEU #### [place] [address] UA Spec Grav 1.020 Normal 1.006-1.029 [facility] Comment on above: Performed By: #### G FR, CMP, CBC, LD, ADIFF, ANEU #### [place] [address] UA Specimen Type Not Given Normal [facility] Comment on above: Performed By: #### G FR, CMP, CBC, LD, ADIFF, ANEU #### [place] [address] UA Urobilinogen 1.0 E.U./dL Normal 0.2-1.0 [facility] Comment on above: Performed By: #### G FR, CMP, CBC, LD, ADIFF, ANEU #### [place] [address] Urobilinogen (U) [Mass/Vol] Negative Normal Neg-Trace [facility] Comment on above: Performed By: #### G FR, CMP, CBC, LD, ADIFF, ANEU #### [place] [address] Absolute neutrophil countOrd ered By: Charles Rico on 01-25-2024 Neutrophils (Bld) [#/Vol] 4.9 10*3/uL 2.0-7.7 [facility] Basic Metabolic Profile (BMP )on 01-25-2024 BUN/CRE 8.4 RATIO Low 10-20 [facility] Comment on above: Performed By: #### L 100.0100, L501.5200, L500.2500, L501.6710 #### [facility] [address] [place], [address] CA,Total 8.8 mg/dL Normal 8.5-10.1 [facility] Comment on above: Performed By: #### L 100.0100, L501.5200, L500.2500, L501.6710 #### [facility] [address] [place], [address] Chloride [Moles/Vol] 103 mmol/L Normal 98-107 [facility] Comment on above: Performed By: #### L 100.0100, L501.5200, L500.2500, L501.6710 #### [facility] [address] [place], [address] CO2 [Moles/Vol] 28.0 mmol/L Normal 21.0-32.0 [facility] Comment on above: Performed By: #### L 100.0100, L501.5200, L500.2500, L501.6710 #### [facility] [address] [place], [address] Creatinine [Mass/Vol] 0.95 mg/dL Normal 0.55-1.02 [facility] Comment on above: Result Comment: The validity of the calculated GFR GFRAA in patients over 70 years has not been determined. Clinical correlation is essential. Performed By: #### L 100.0100, L501.5200, L500.2500, L501.6710 #### [facility] [address] [facility] [place], [address] ECRCL 58.13 ml/min Normal [facility] Comment on above: Performed By: #### L 100.0100, L501.5200, L500.2500, L501.6710 #### [facility] [address] [place], [address] EST GFR - AA 74 mL/min Normal >60 [facility] Comment on above: Result Comment: Afri can [place] GFR Calc Performed By: #### L 100.0100, L501.5200, L500.2500, L501.6710 #### [facility] [address] [place], [address] GAP 7 Normal 5-15 [facility] Comment on above: Performed By: #### L 100.0100, L501.5200, L500.2500, L501.6710 #### [facility] [address] [place], [address] GFR/1.73 sq M.predicted among non-blacks MDRD (S/P/Bld) [Vol rate/Area] 61 mL/min/{1.73_m2} Normal >60 [facility] Comment on above: Result Comment: Non- GFR Calc Performed By: #### L 100.0100, L501.5200, L500.2500, L501.6710 #### [facility] [address] [place], [address] Glucose [Mass/Vol] 198 mg/dL High 74-[address] [facility] Comment on above: Result Comment: Fast ing Glucose result greater than or equal to 126 mg/dL suggests DIABETES MELLITUS per A.D.A. criteria. Performed By: #### L 100.0100, L501.5200, L500.2500, L501.6710 #### [facility] [address] [place], [address] Potassium [Moles/Vol] 3.6 mmol/L Normal 3.5-5.1 [facility] Comment on above: Performed By: #### L 100.0100, L501.5200, L500.2500, L501.6710 #### [facility] [address] [place], [address] Sodium [Moles/Vol] 137 mmol/L Normal 136-[address] [facility] Comment on above: Performed By: #### L 100.0100, L501.5200, L500.2500, L501.6710 #### [facility] [address] [place], [address] Urea nitrogen [Mass/Vol] 8 mg/dL Normal 7-18 [facility] Comment on above: Performed By: #### L 100.0100, L501.5200, L500.2500, L501.6710 #### [facility] [address] [place], [address] Basophil percentageOrdered B y: Charles Rico on 01-25-2024 Basophils/100 WBC (Bld) 1.0 % 0-[address] [facility] Blood urea nitrogen (BUN)/cr eatinine ratioOrdered By: Charles Rico on 01-25-2024 Urea nitrogen/Creatinine [Mass ratio] 8.4 mg/mg Low 10-20 [facility] Brain/Head without Contrasto n 01-25-2024 Brain/Head without Contrast [facility] Services [address] [place] [address] Brain/Head without Contrast MR#: [id number] Acct: [id number] Name: TERENCE VALDIVIA Rep #: [id number] : 1950 F 73 From: Kimberli Haile PCP: Dr. Will Lim MD Status: REG ER Study: Brain/Head without Contrast Date of Exam: 12/30 09/20 Exam# [id number] Ordering Dr: Charles Rico MD ADDENDUM by Dr. Kimberli Rosales MD on 01/25/24 at 0443 [id number] INDICATION: trauma EXAMINATION: CT BRAIN - CT Head or Brain W/O Contrast Injection TECHNIQUE: Multiple axial images were obtained of the head without intravenous contrast. The protocol utilizes one or more of the following dose reduction techniques: automated exposure control, adjustment of mA and/or kV according to patient size,and/or use of iterative reconstruction technique. IV Contrast dosage and agent: None. RADIATION DOSAGE (If Supplied By Facility): CTDIvol = ( 44.99 ) mGy, DLP = ( 812.98 ) mGycm COMPARISON: Prior study dated: 01/10/2024 FINDINGS: BRAIN: Heterogeneous mass in the right parietal lobe is again noted, approximately 4 cm in transverse diameter although difficult to determine the margins on noncontrast CT. Extensive surrounding vasogenic edema, as on the prior. There is mass effect on the right lateral ventricle with shift of midline structures to the left 6 mm, which is increased compared to 4 mm on the prior. No acute bleed. VENTRICLES AND SULCI: Not dilated. EXTRA-AXIAL: No hemorrhage, fluid collection, or mass. CALVARIUM / SKULL BASE: Unremarkable. FACE/SINUSES: Unremarkable. SOFT TISSUES: Unremarkable. 01/25/24 0443 Date cc: Dr. Charles Rico MD; Dr. Will Lim MD * Signed ADDENDUM by Dr. Kimberli Rosales MD on 01/25/[address]/Brain/Head without Contrast IMPRESSION: No evidence of acute intracranial injury. Right parietal mass appears similar to prior, with surrounding vasogenic edema and slightly increased midline shift right to left compared to prior. N.B. : The above Results were Read Back by Kimberli Rosales MD to Charles Rico MD, and understanding confirmed on 01/25/2024 04:47:21 (ET). Electronically Signed: Kimberli Rosales MD at 4:43 EST , 01/25/24 0454 Date cc: Dr. Charles Rico MD; Dr. Will Lim MD * Signed We are attempting to reach an attending provider to discuss findings. An addendum with communication details will be sent when the communication is complete. [id number] INDICATION: trauma EXAMINATION: CT BRAIN - CT Head or Brain W/O Contrast Injection TECHNIQUE: Multiple axial images were obtained of the head without intravenous contrast. The protocol utilizes one or more of the following dose reduction techniques: automated exposure control, adjustment of mA and/or kV according to patient size,and/or use of iterative reconstruction technique. IV Contrast dosage and agent: None. RADIATION DOSAGE (If Supplied By Facility): CTDIvol = ( 44.99 ) mGy, DLP = ( 812.98 ) mGycm COMPARISON: Prior study dated: 01/10/2024 FINDINGS: BRAIN: Heterogeneous mass in the right parietal lobe is again noted, approximately 4 cm in transverse diameter although difficult to determine the margins on noncontrast CT. Extensive surrounding vasogenic edema, as on the prior. There is mass effect on the right lateral ventricle with shift of midline structures to the left 6 mm, which is increased compared to 4 mm on the prior. No acute bleed. VENTRICLES AND SULCI: Not dilated. EXTRA-AXIAL: No hemorrhage, fluid collection, or mass. CALVARIUM / SKULL BASE: Unremarkable. FACE/SINUSES: Unremarkable. SOFT TISSUES: Unremarkable. CT/Brain/Head without Contrast IMPRESSION: No evidence of acute intracranial injury. Right parietal mass appears similar to prior, with surrounding vasogenic edema and slightly increased midline shift right to left compared to prior. Electronically Signed: Kimberli Rosales MD at 4:43 EST , CC: Dr. Charles Rico MD; Dr. Will Lim MD Reimbursement Liaison: Signed Normal [facility] CBC W/Diff, Automatedon 12-30 Absolute Lymph 0.99 X10 3/uL Normal 0.83-4.51 [facility] Comment on above: Performed By: #### L 100.0100, L501.5200, L500.2500, L501.6710 #### [facility] [address] [place], [address] Absolute Neut 4.9 X10 3/uL Normal 2.0-7.7 [facility] Comment on above: Performed By: #### L 100.0100, L501.5200, L500.2500, L501.6710 #### [facility] [address] [place], [address] Basophils/100 WBC (Bld) 1.0 % Normal 0-[address] [facility] Comment on above: Performed By: #### L 100.0100, L501.5200, L500.2500, L501.6710 #### [facility] [address] [place], [address] Eosinophils/100 WBC (Bld) 3.4 % Normal 0-5 [facility] Comment on above: Performed By: #### L 100.0100, L501.5200, L500.2500, L501.6710 #### [facility] [address] [place], [address] Erythrocyte distribution width (RBC) [Ratio] 12.2 % Normal 11.6-14.6 [facility] Comment on above: Performed By: #### L 100.0100, L501.5200, L500.2500, L501.6710 #### [facility] [address] [place], [address] Hematocrit (Bld) [Volume fraction] 42.5 % Normal 37-47 [facility] Comment on above: Performed By: #### L 100.0100, L501.5200, L500.2500, L501.6710 #### [facility] [address] [place], [address] Hemoglobin (Bld) [Mass/Vol] 15.0 g/dL Normal 12.0-15.0 [facility] Comment on above: Performed By: #### L 100.0100, L501.5200, L500.2500, L501.6710 #### [facility] [address] [place], [address] IG% 0.300 Normal 0.0-0.9 [facility] Comment on above: Result Comment: IG% - Immature Granulocytes (promyelocytes, myelocytes and metamyelocytes) > 1% indicates that a LEFT SHIFT is Present. Performed By: #### L 100.0100, L501.5200, L500.2500, L501.6710 #### [facility] [address] [place], [address] Lymphocytes/100 WBC (Bld) 14.1 % Low 19-41 [facility] Comment on above: Performed By: #### L 100.0100, L501.5200, L500.2500, L501.6710 #### [facility] [address] [place], [address] MCH (RBC) [Entitic mass] 33.0 pg High 27.0-32.0 [facility] Comment on above: Performed By: #### L 100.0100, L501.5200, L500.2500, L501.6710 #### [facility] [address] [place], [address] MCHC (RBC) [Mass/Vol] 35.3 g/dL Normal 32-36 [facility] Comment on above: Performed By: #### L 100.0100, L501.5200, L500.2500, L501.6710 #### [facility] [address] [place], [address] MCV (RBC) [Entitic vol] 93.4 fL Normal 81-99 [facility] Comment on above: Performed By: #### L 100.0100, L501.5200, L500.2500, L501.6710 #### [facility] [address] [place], [address] Monocytes/100 WBC (Bld) 11.8 % High 0-10 [facility] Comment on above: Performed By: #### L 100.0100, L501.5200, L500.2500, L501.6710 #### [facility] [address] [place], [address] Neutrophils/100 WBC (Bld) 69.4 % Normal 47-70 [facility] Comment on above: Performed By: #### L 100.0100, L501.5200, L500.2500, L501.6710 #### [facility] [address] [place], [address] Nucleated RBC (Bld) [#/Vol] 0 10*3/uL Normal 0-5 [facility] Comment on above: Performed By: #### L 100.0100, L501.5200, L500.2500, L501.6710 #### [facility] [address] [place], [address] Platelet mean volume (Bld) [Entitic vol] 8.9 fL Normal 6.2-12.0 [facility] Comment on above: Performed By: #### L 100.0100, L501.5200, L500.2500, L501.6710 #### [facility] [address] [place], [address] Platelets (Bld) [#/Vol] 192 10*3/uL Normal 150-450 [facility] Comment on above: Performed By: #### L 100.0100, L501.5200, L500.2500, L501.6710 #### [facility] [address] [place], [address] RBC (Bld) [#/Vol] 4.55 10*6/uL Normal 4.2-5.4 [facility] Comment on above: Performed By: #### L 100.0100, L501.5200, L500.2500, L501.6710 #### [facility] [address] [place], [address] RDW SD 41.9 fl Normal 35.1-43.9 [facility] Comment on above: Performed By: #### L 100.0100, L501.5200, L500.2500, L501.6710 #### [facility] [address] [place], [address] WBC (Bld) [#/Vol] 7.0 10*3/uL Normal 4.4-11.[address] [facility] Comment on above: Performed By: #### L 100.0100, L501.5200, L500.2500, L501.6710 #### [facility] [address] [place], [address] Carbon dioxide measurementOr dered By: Charles Rico on 01-25-2024 CO2 [Moles/Vol] 28.0 mmol/L 21.0-32.0 [facility] Chloride measurementOrdered By: Charles Rico on 01-25-2024 Chloride [Moles/Vol] 103 mmol/L 98-107 [facility] Emergency Department Summary on 01-25-2024 Emergency Department Summary [facility] Medical Records Department [address] [place] [address] Emergency Department Summary 01/25/24 MR#: [id number] Acct: [id number] Name: TERENCE VALDIVIA Rep #: [id number] : 1950 73 From: Charles Rico MD PCP: Dr. Will Lim MD Status:REG ER Location: ED HPI HPI - Fall History of Present Illness Chief Complaint: Fall Informant: patient, family and EMS Narrative Narrative: 73-year-old female states she was recently diagnosed with a brain mass, she is scheduled for a procedure in 1 week, has been having disequilibrium/trouble with balance as well as weakness in her left side for over a month in relation to this, causing her to fall easily, which occurred this morning as she was getting out of bed. She states she had no prodromal symptoms. She fell and injured her head and the right side of her neck. She denies any new neurologic symptoms. She has a mild headache. There was no loss of consciousness, nausea, vomiting. She denies any new vision changes or symptoms. She denies any other injury. [facility] Medical History (Updated 01/25/24 @ 05:[address] Charles Rico MD) Brain tumor Tendinosis of right shoulder Primary osteoarthritis, right shoulder Right shoulder tendonitis Type 2 diabetes mellitus Home Medications ???Medication ???Instructions ???Recorded ???Last Taken ???Type levothyroxine 137 mcg tablet 137 mcg PO DAILY 04/30/22 Unknown History losartan 50 mg tablet 50 mg PO DAILY 04/30/22 Unknown History multivitamin 1 tab PO DAILY 04/30/22 Unknown History solifenacin 10 mg tablet 10 mg PO DAILY 04/30/22 Unknown History venlafaxine 75 mg capsule,extended 75 mg PO DAILY 04/30/22 Unknown History release 24 hr vitamins A,C,P-smzu-swplkx 2,148 2 tab PO DAILY 04/30/22 Unknown History mcg-113 mg-45 mg-17.4 mg tablet (PreserVision AREDS) semaglutide 0.25 mg or 0.5 mg (2 0.25 mg subcut QWEEK 02/01/23 Unknown History mg/3 mL) subcutaneous pen injector (Ozempic) bupropion HCl 200 mg tablet,12 hr 200 mg PO DAILY 06/21/23 Unknown History sustained-release Allergy/AdvReac Type Severity Reaction Status Date / Time bee venom protein (honey Allergy Swelling Verified 01/25/24 03:47 bee) (bee stings) codeine Allergy Nausea Verified 01/25/24 03:47 Tetanus Vaccines and Toxoid Allergy Swelling Verified 01/25/24 03:47 Family History Father CHF (congestive heart failure) Surgical History History of knee surgery Social History Smoking Status: Never smoker ROS ROS ED Constitutional Constitutional ED: Denies chills or fever(s) Eyes Eyes: Denies change in vision or diplopia ENT ENT ED: Denies rhinorrhea or sore throat Cardiovascular Cardiovascular: Denies chest pain or palpitations Respiratory/Chest Respiratory/Chest: Denies cough or dyspnea Gastrointestinal Gastrointestinal: Denies abdominal pain, diarrhea, nausea or vomiting Genitourinary Genitourinary ED: Denies dysuria or hematuria Musculoskeletal Musculoskeletal: Reports neck pain; Denies back pain Integumentary Reports Abrasions; Denies abscess or rash Neurologic Neurologic: Reports headache(s) and weakness; Denies paresthesias EXAM Physical Exam Const Vital Signs: 01/25/24 03:41 01/25/24 04:16 Temperature 98.7 F 98.7 F Temperature Source Oral Pulse Rate 88 Respiratory Rate 16 Respiratory Effort Normal Non-Labored Respiratory Depth Normal Respiratory Pattern Normal Blood Pressure 155/80 H Blood Pressure Mean 105 Pulse Ox 95 95 Oxygen Delivery Method Room Air Room Air Positive well nourished and well developed General Appearance ED: well developed and NAD HEENT Reports moist mucous membranes HEENT Narrative: Tenderness and superficial small abrasion left parietal occipital scalp. No crepitance or depression. No Snyder sign. No raccoon eyes. No CSF otorhinorrhea. normocephalic, trauma and tenderness; Negative for hematoma Eyes PERRL and EOMs intact bilaterally Neck full ROM and supple Neck Narrative: Tender in the right sternocleidomastoid, has full range of motion of the neck, increased pain when turning to the left in the area of the right sternocleidomastoid, and no midline bony tenderness or signs of trauma/step-off posteriorly. General: tenderness Resp normal respiratory effort and clear to auscultation bilaterally Cardio regular rate, regular rhythm and no murmurs GI non-tender and non-distended Auscultation: normoactive bowel sounds Palpation: soft Back/Spine no CVA tenderness General Back: other FROM Extremity normal to inspection Extremity Narrative: Full range of motion all joints wit (more content not included)... Normal [facility] Eosinophil percentageOrdered By: Charles Rico on 01-25-2024 Eosinophils/100 WBC (Bld) 3.4 % 0-5 [facility] Erythrocyte distribution wid th ratioOrdered By: Charles Rico on 01-25-2024 Erythrocyte distribution width (RBC) [Ratio] 12.2 % 11.6-14.6 [facility] Erythrocyte distribution wid th standard deviationOrdered By: Charles Rico on 01-25-2024 Erythrocyte distribution width (RBC) [Entitic vol] 41.9 fL 35.1-43.9 [facility] Estimated glomerular filtrat ion rate (GFR) AmericanOrdered By: Charles Rico on 01-25-2024 Estimated GFR (MDRD) Amer 74 mL/min >60 [facility] Comment on above: GFR Calc Estimation of creatinine caroline aranceOrdered By: Charles Rico on 01-25-2024 Estimated Creatinine Clearance Calc 58.13 ml/min [facility] Glomerular filtration rate ( GFR) estimationOrdered By: Charles Rico on 01-25-2024 Estimated GFR (MDRD) Non-Af Amer 61 mL/min >60 [facility] Comment on above: Non- GFR Calc Glucose measurementOrdered B y: Charles Rico on 01-25-2024 Glucose [Mass/Vol] 198 mg/dL High 74-[address] [facility] Comment on above: Fasting Glucose resu lt greater than or equal to 126 mg/dL suggests DIABETES MELLITUS per A.D.A. criteria. Hematocrit Auto (Bld) [Volum e fraction]Ordered By: Charles Rico on 01-25-2024 Hematocrit (Bld) [Volume fraction] 42.5 % 37-47 [facility] Hemoglobin measurementOrdere d By: Charles Rico on 01-25-2024 Hemoglobin (Bld) [Mass/Vol] 15.0 g/dL 12.0-15.0 [facility] Immature granulocytes/100 WB C Auto (Bld)Ordered By: Charles Rico on 01-25-2024 Immature granulocytes/100 WBC (Bld) 0.300 % 0.0-0.9 [facility] Comment on above: IG% - Immature Granu locytes (promyelocytes, myelocytes and metamyelocytes) > 1% indicates that a LEFT SHIFT is Present. LABORATORYOrdered By: Juan Davenport on 01-25-2024 Blood Glucose Interventions Administered agent to decrease blood sugar (01/25/24 9:16 PM) [facility] Work Phone: Blood Glucose Interventions Administered agent to decrease blood sugar (01/25/24 6:10 PM) [facility] Work Phone: Lymphocytes Auto (Unsp spec) [#/Vol]Ordered By: Charles Rico on 01-25-2024 Lymphocytes (Bld) [#/Vol] 0.99 10*3/uL 0.83-4.51 [facility] Lymphocytes/100 WBC Auto (Un sp spec)Ordered By: Charles Rico on 01-25-2024 Lymphocytes/100 WBC (Bld) 14.1 % Low 19-41 [facility] MCV (mean corpuscular volume ) determinationOrdered By: Charles Rico on 01-25-2024 MCV (RBC) [Entitic vol] 93.4 fL 81-[address] [facility] Mean corpuscular hemoglobin (MCH) determinationOrdered By: Charles Rico on 01-25-2024 MCH (RBC) [Entitic mass] 33.0 pg High 27.0-32.0 [facility] Mean corpuscular hemoglobin concentration (MCHC) determinationOrdered By: Charles Rico on 01-25-2024 MCHC (RBC) [Mass/Vol] 35.3 g/dL 32-36 [facility] Mean platelet volume determi nationOrdered By: Charles Rico on 01-25-2024 Platelet mean volume (Bld) [Entitic vol] 8.9 fL 6.2-12.0 [facility] Monocyte percentageOrdered B y: Charles Rico on 01-25-2024 Monocytes/100 WBC (Bld) 11.8 % High 0-[address] [facility] Neutrophil percentageOrdered By: Charles Rico on 01-25-2024 Neutrophils/100 WBC (Bld) 69.4 % 47-70 [facility] Nucleated red blood cell per centageOrdered By: Charles Rioc on 01-25-2024 Nucleated RBC/100 WBC (Bld) [Ratio] 0 % 0-5 [facility] Platelet countOrdered By: Trinity Rico on 01-25-2024 Platelets (Bld) [#/Vol] 192 10*3/uL 150-450 [facility] Potassium measurementOrdered By: Charles Rico on 01-25-2024 Potassium [Moles/Vol] 3.6 mmol/L 3.5-5.1 [facility] RBC Auto (Bld) [#/Vol]Ordere d By: Charles Rico on 01-25-2024 RBC (Bld) [#/Vol] 4.55 10*6/uL 4.2-5.4 [facility] Serum anion gap measurementO rdered By: Charles Rico on 01-25-2024 Anion gap [Moles/Vol] 7 mmol/L 5-15 [facility] Serum or plasma calcium olive urement (mass/volume)Ordered By: Charles Rico on 01-25-2024 Calcium [Mass/Vol] 8.8 mg/dL 8.5-10.[address] [facility] Serum or plasma creatinine m easurement (mass/volume)Ordered By: Charles Rico on 01-25-2024 Creatinine [Mass/Vol] 0.95 mg/dL 0.55-1.02 [facility] Comment on above: The validity of the calculated GFR & GFRAA in patients over 70 years has not been determined. Clinical correlation is essential. Serum or plasma urea nitroge n measurement (mass/volume)Ordered By: Charles Rico on 01-25-2024 Urea nitrogen [Mass/Vol] 8 mg/dL 7-18 [facility] Sodium levelOrdered By: Adair Rico on 01-25-2024 Sodium [Moles/Vol] 137 mmol/L 136-[address] [facility] White blood cell (WBC) count Ordered By: Charles Rico on 01-25-2024 WBC (Bld) [#/Vol] 7.0 10*3/uL 4.4-11.[address] [facility] Brain/Head without Contrasto n 01-10-2024 Brain/Head without Contrast [facility] Imaging Services [address] [place], [place] [address] Brain/Head without Contrast MR#: [id number] Acct: [id number] Name: TERNECE VALDIVIA Rep #: [id number] : 1950 F 73 From: Aamir frank MD PCP: Dr. Will Lim MD Status: [facility] Study: Brain/Head without Contrast Date of Exam: 12/29 04/23 Exam# [id number] Ordering Dr: Will Lim MD [id number] STUDY: CT BRAIN WITHOUT CONTRAST REASON FOR EXAM: Female, 73 years old. CLOSED HEAD INJURY RADIATION DOSAGE (If Supplied By Facility): CTDIvol = ( 44.99 ) mGy, DLP = ( 745.49 ) mGycm TECHNIQUE: Transaxial CT imaging of the brain was performed without administration of intravenous contrast material. Individualized dose optimization techniques were used for this CT. COMPARISON: Comparison is made with prior study dated December 27, 2023. FINDINGS: Normal soft tissue structures. Normal calvarium. Normal size ventricles and extra-axial spaces for the patient''s age. Once again, there is a 3.7 cm x 3.3 cm heterogeneous mass in the medial posterior right parietal occipital lobes with surrounding edema and mass effect. There is also evidence of edema in the anterior right parietal lobes. A neoplastic process should be ruled out. Normal basal ganglia and thalami. Normal brainstem. Normal cerebellum. There is no intracranial hemorrhage. There are no findings of an acute ischemic infarction. Normal visualized paranasal sinuses. CT/Brain/Head without Contrast IMPRESSION: Stable examination. Electronically Signed: Aamir Bay MD at 14:31 EST , CC: Dr. Will Lim MD Reimbursement Liaison: Signed Normal [facility] Elbow min 3 Viewson 01-10-20 Elbow min 3 Views [facility] Imaging Services [address] [place], [place] [id number] Elbow min 3 Views MR#: [id number] Acct: [id number] Name: TERENCE VALDIVIA Rep #: [id number] : 1950 F 73 From: Juan Luis Bejarano DO PCP: Dr. Will Lim MD Status: [facility] Study: Elbow min 3 Views Date of Exam: 01/10/24 Exam# [id number] Ordering Dr: Will Lim MD [id number] INDICATION: ELBOW PAIN EXAMINATION/TECHNIQUE: X-RAY - LEFT XR Elbow 4Views COMPARISON: FINDINGS: SOFT TISSUES: No soft tissue swelling or gas. No radiopaque foreign body. BONES/JOINTS: There is no displacement of the anterior or posterior fat pads. Mild olecranon spurring. No acute fracture or subluxation. Normal alignment. Preservation of the joint space. No sclerotic or destructive changes observed. RAD/Elbow min 3 Views IMPRESSION: No acute bony injury. Electronically Signed: Juan Luis Bejarano DO at 10:53 EST , CC: Dr. Will Lim MD Reimbursement Liaison: Signed Normal [facility] Knee 4 or More Viewson 01-09 Knee 4 or More Views [facility] Imaging Services [address] [place] [id number] Knee 4 or More Views MR#: [id number] Acct: [id number] Name: TERENCE VALDIVIA Rep #: [id number] : 1950 F 73 From: Juan Luis Bejarano DO PCP: Dr. Will Lim MD Status: [facility] Study: Knee 4 or More Views Date of Exam: 01/10/24 Exam# [id number] Ordering Dr: Will Lim MD [id number] INDICATION: KNEE PAIN EXAMINATION/TECHNIQUE: X-RAY - LEFT XR Knee Complete 4 Views COMPARISON: FINDINGS: SOFT TISSUES: No soft tissue swelling or gas. No radiopaque foreign body. BONES/JOINTS: No acute fracture or subluxation.. Degenerative spurring at the femorotibial and patellofemoral compartments .. No sclerotic or destructive changes observed. RAD/Knee 4 or More Views IMPRESSION: Degenerative changes. No acute bony injury. Electronically Signed: Juan Luis Bejarano DO at 10:55 EST Reading Location ID and State: [facility] / [place] Tel [phone], Service support , CC: Dr. Will Lim MD Reimbursement Liaison: Signed Normal [facility] PET/CT Tumor WB Initialon PET/CT Tumor WB Initial [facility] Imaging Services [address] [place] [id number] PET/CT Tumor WB Initial MR#: [id number] Acct: [id number] Name: TERENCE VALDIVIA Rep #: [id number] : 1950 F 73 From: Aramis Diana PCP: Dr. Will Lim MD Status: [facility] Study: PET/CT Tumor WB Initial Date of Exam: 01/03/24 Exam# [id number] Ordering Dr: Will Lim MD [id number] EXAMINATION: FDG PET-CT ? Head to Toe INDICATIONS: A 73-year-old female with history of brain neoplasia presenting for initial staging examination. COMPARISON EXAMINATION: MRI of the brain report dated 01/02/24 INDEX LESION SIZE SUV INTERPRETATION Right parietal lobe Lesion to white matter ratio 2.6:1 Fulfills quantitative criteria for viable neoplasm TECHNIQUE: Following the intravenous administration of 13.55 mCi of F-18 deoxyglucose via the right hand, multiplanar image acquisitions of the head, neck, chest, abdomen and pelvis, lower extremities to the level of the bilateral forefoot, obtained at one hour post radiopharmaceutical administration contemporaneously interpreted with the current CT of the head, neck, chest, abdomen and pelvis, lower extremities to the level of the bilateral forefoot, dated 01/03/24 via coregistration and MRI of the brain report dated 01/02/24 reveals: BLOOD GLUCOSE LEVEL:?? 135 mg/dl?HEIGHT:?66 inches?WEIGHT: 184 lbs. FINDINGS: HEAD/NECK: There is an asymmetric increased tracer uptake noted in the right parietal lobe correlating with the findings described on MRI of the brain report dated 01/02/24. The lesion to white matter ratio is 2.6. The remaining cortical and subcortical structures are relatively scintigraphically unremarkable. Normal cerebellar hemispheres and basal ganglia are identified symmetrically. CHEST: There is no quantitative scintigraphic evidence of abnormal increased glucose metabolism within the context of the bilateral hemithorax pulmonary parenchyma, right and left hemithorax pleural interface, mediastinal structures and right-left thoracic perihilum. Prominent radiopharmaceutical concentration is identified in the left ventricular myocardium commensurate with the [place]. Pertinent chest CT findings are as follows. There is atherosclerotic calcification defined in the thoracic aorta without evidence of dilatation-aneurysm formation. Both anterior and middle mediastinal soft tissue densities demonstrate no evidence of quantitatively significant increased tracer uptake. Bilateral axillary soft tissue densities are ametabolic. There are no parenchymal densities-nodules defined in the right and left hemithorax with quantitatively significant increased FDG uptake. ABDOMEN/PELVIS: Normal physiologic distribution of the radiopharmaceutical is apparent in the hepatic and splenic parenchyma, both renal units, bladder and visualized intestinal tract. Pertinent abdomen and pelvis CT findings are as follows. Retained oral contrast material is noted in the descending and sigmoid colon. A cystic structure defined in the right adnexal region demonstrates no evidence of increased tracer uptake. Calcification is noted in the region of the left adnexa. SKELETAL: Degenerative changes are noted in the cervical, thoracic and lumbar spine without evidence of increased radiopharmaceutical concentration. PET/PET/CT Tumor WB Initial IMPRESSION: 1. Increased FDG concentration noted in the right parietal lobe fulfills quantitative criteria for viable neoplasia. (Delbeke et al, Radiology 195:47, 1995). 2. No other quantitatively significant hypermetabolic abnormalities are noted. Electronic Signature Aramis Whipple D.O. Accurate Quantification of SUVs for this report are calculated using the exclusive [employer], (U.S. Patent No. [phone] [place] patent [phone] ). Standardization and correction of the FDG SUV metric exclusively available with [employer] intellectual property, allow for vendor non-specific objective quantitative sequential FDG PET-CT comparison and otherwise unobtainable optimization of the sensitivity and specificity of the examination. [email or web address] Electronically Signed: Aramis Whipple DO at 8:54 EST , CC: Dr. Will Lim MD Reimbursement Liaison: Signed Normal [facility] Brain W/WO Contraston 2023 Brain W/WO Contrast [facility] Imaging Services [address] [place], [place] [id number] Brain W/WO Contrast MR#: [id number] Acct: [id number] Name: TERENCE VALDIVIA Rep #: [id number] : 1950 F 73 From: Juancarlos Briceño MD PCP: Dr. Will Lim MD Status: REG CLI Study: Brain W/WO Contrast Date of Exam: 01/02/24 Exam# [id number] Ordering Dr: Will Lim MD [id number] EXAM: MR HEAD WITHOUT INTRAVENOUS CONTRAST CLINICAL INDICATION: CLOSED HEAD INJURY, F/U TO ABNORMAL CT TECHNIQUE: Multiplanar and multisequence MR images of the brain were obtained without intravenous contrast. COMPARISON: CT brain 12/27/2023 FINDINGS: BRAIN AND EXTRA-AXIAL SPACES: Irregular shaped contrast-enhancing mass occupies the medial portion of the right parietal lobe measuring 4 cm in widest diameter and associated with large amount of adjacent vasogenic edema. The medial portion of the lesion abuts the falx. Effacement of the adjacent cortical sulci noted as well as compression of the adjacent trigone region of the right lateral ventricle. No significant midline shift. No other contrast-enhancing lesions are identified. Area of increased T2 signal intensity within the left frontal white matter superiorly likely representing gliosis from chronic microvascular change. Brain signal intensity is otherwise normal. No hydrocephalus. Posterior fossa is normal. Basilar cisterns are patent. SELLA: Normal. Normal sella turcica, pituitary gland, infundibular stalk, optic chiasm and hypothalamus. AUDITORY SYSTEM: Normal. The internal auditory canals are patent. BONES/JOINTS: Intact calvarium. SINUSES: Unremarkable as visualized. Clear. MASTOID AIR CELLS: Clear. ORBITS: Unremarkable as visualized. Both globes, extraocular muscles, optic nerves and retrobulbar fat appear unremarkable. VASCULATURE: Unremarkable as visualized. Normal flow voids in the major intracranial circulation. MRI/Brain W/WO Contrast IMPRESSION: 4 cm right parietal mass which may represent primary or metastatic neoplasm. Electronically Signed: Juancarlos Briceño MD at 10:14 EST , CC: Dr. Will Lim MD Reimbursement Liaison: Signed Normal [facility] Myoglobin, Serumon 4 Myoglobin, Ser 33 ng/mL Normal 25-58 [facility] Comment on above: Result Comment: Perf ormed at: [facility] [address] [id number] Tailer In: Juan Antonio Rand PhD, Phone: [phone] Performed By: #### L 501.3620, L500.2500, L100.0100, L3600.5100, L501.4020 #### [facility] [address] [place], [address] SCRN MAMM (CAD)W/MCKINLEY BILATo n 12-30-2023 SCRN MAMM (CAD)W/MCKINLEY BILAT [facility] Imaging Services [address] [place] [address] SCRN MAMM (CAD)W/MCKINLEY BILAT MR#: [id number] Acct: [id number] Name: TERENCE VALDIVIA Rep #: [id number] : 1950 F 73 From: Aamir frank MD PCP: Dr. Will Lim MD Status: [facility] Study: SCRN MAMM (CAD)W/MCKINLEY BILAT Date of Exam: 03/23 Exam# [id number] Ordering Dr: Will Lim MD [id number] MAMMOGRAPHY - BILATERAL SCREENING REASON FOR EXAM: Female, 73 years old. Routine annual screening examination. PERTINENT HISTORY: Mother with breast cancer. Aunt with breast cancer. TECHNIQUE: Digital bilateral breast mckinley (3D mammographic acquisition) in the CC and MLO projections. 2-D mediolateral oblique (MLO) and craniocaudad (CC) views of both breasts were obtained. CAD: Full Field Digital Mammography with Computer Added Detection was performed. COMPARISON: Comparison is made with prior examination dated November 24, 2022. FINDINGS: Breast Composition: There are scattered areas of fibroglandular density. There are no dominant masses or suspicious calcifications. Stable small benign appearing bilateral axillary lymph nodes. No other significant abnormalities are identified. There has been no significant change since the prior study. BI/SCRN MAMM (CAD)W/MCKINLEY BILAT IMPRESSION: Stable bilateral screening mammogram. Yearly follow-up mammogram recommended. (A) ASSESSMENT CATEGORY: BIRADS Category 2: Benign. A letter regarding these results will be sent to the patient by the facility within 30 days. Approximately 10% of breast cancers are not detected by mammography. A normal mammogram should not delay biopsy of a clinically suspicious abnormality. [id number] Electronically Signed: Aamir Bay MD at 13:01 EDT Reading Location ID and State: [facility] / [place] , Service support , CC: Dr. Will Lim MD Reimbursement Liaison: Signed Normal [facility] Basic Metabolic Profile (BMP )on 12-29-2023 BUN/CRE 12.5 RATIO Normal 12-17 [facility] Comment on above: Order Comment: 1 Performed By: #### L 501.3620, L500.2500, L100.0100, L3600.5100, L501.4020 #### [facility] [address] [place], [place], [id number] CA,Total 9.4 mg/dL Normal 8.5-10.1 [facility] Comment on above: Order Comment: 1 Performed By: #### L 501.3620, L500.2500, L100.0100, L3600.5100, L501.4020 #### [facility] [address] [place], [address] Chloride [Moles/Vol] 109 mmol/L High 98-107 [facility] Comment on above: Order Comment: 1 Performed By: #### L 501.3620, L500.2500, L100.0100, L3600.5100, L501.4020 #### [facility] [address] [place], [address] CO2 [Moles/Vol] 25.0 mmol/L Normal 21.0-32.0 [facility] Comment on above: Order Comment: 1 Performed By: #### L 501.3620, L500.2500, L100.0100, L3600.5100, L501.4020 #### [facility] [address] [place], [address] Creatinine [Mass/Vol] 0.80 mg/dL Normal 0.55-1.02 [facility] Comment on above: Order Comment: 1 Result Comment: The validity of the calculated GFR GFRAA in patients over 70 years has not been determined. Clinical correlation is essential. Performed By: #### L 501.3620, L500.2500, L100.0100, L3600.5100, L501.4020 #### [facility] [address] [place], [address] EST GFR - AA 90 mL/min Normal >60 [facility] Comment on above: Order Comment: 1 Result Comment: Afri can Bangladeshi GFR Calc Performed By: #### L 501.3620, L500.2500, L100.0100, L3600.5100, L501.4020 #### [facility] [address] [place], [address] GAP 5 Normal 5-15 [facility] Comment on above: Order Comment: 1 Performed By: #### L 501.3620, L500.2500, L100.0100, L3600.5100, L501.4020 #### [facility] [address] [place], [address] GFR/1.73 sq M.predicted among non-blacks MDRD (S/P/Bld) [Vol rate/Area] 75 mL/min/{1.73_m2} Normal >60 [facility] Comment on above: Order Comment: 1 Result Comment: Non- GFR Calc Performed By: #### L 501.3620, L500.2500, L100.0100, L3600.5100, L501.4020 #### [facility] [address] [place], [address] Glucose [Mass/Vol] 111 mg/dL High 74-[address] [facility] Comment on above: Order Comment: 1 Result Comment: Fast ing Glucose result from 100 to 125 mg/dL suggests IMPAIRED HOMEOSTASIS per A.D.A. criteria. Performed By: #### L 501.3620, L500.2500, L100.0100, L3600.5100, L501.4020 #### [facility] [address] [place], [address] Potassium [Moles/Vol] 3.8 mmol/L Normal 3.5-5.1 [facility] Comment on above: Order Comment: 1 Performed By: #### L 501.3620, L500.2500, L100.0100, L3600.5100, L501.4020 #### [facility] [address] [place], [address] Sodium [Moles/Vol] 139 mmol/L Normal 136-[address] [facility] Comment on above: Order Comment: 1 Performed By: #### L 501.3620, L500.2500, L100.0100, L3600.5100, L501.4020 #### [facility] [address] [place], [address] Urea nitrogen [Mass/Vol] 10 mg/dL Normal 7-18 [facility] Comment on above: Order Comment: 1 Performed By: #### L 501.3620, L500.2500, L100.0100, L3600.5100, L501.4020 #### [facility] [address] [place], [address] CBC W/Diff, Automatedon 10-3 Absolute Lymph 1.36 X10 3/uL Normal 0.83-4.51 [facility] Comment on above: Performed By: #### L 501.3620, L500.2500, L100.0100, L3600.5100, L501.4020 #### [facility] [address] [place], [address] Absolute Neut 4.9 X10 3/uL Normal 2.0-7.7 [facility] Comment on above: Performed By: #### L 501.3620, L500.2500, L100.0100, L3600.5100, L501.4020 #### [facility] [address] [place], [address] Basophils/100 WBC (Bld) 0.6 % Normal 0-[address] [facility] Comment on above: Performed By: #### L 501.3620, L500.2500, L100.0100, L3600.5100, L501.4020 #### [facility] [address] [place], [address] Eosinophils/100 WBC (Bld) 1.1 % Normal 0-5 [facility] Comment on above: Performed By: #### L 501.3620, L500.2500, L100.0100, L3600.5100, L501.4020 #### [facility] [address] [place], [address] Erythrocyte distribution width (RBC) [Ratio] 12.0 % Normal 11.6-14.6 [facility] Comment on above: Performed By: #### L 501.3620, L500.2500, L100.0100, L3600.5100, L501.4020 #### [facility] [address] [place], [address] Hematocrit (Bld) [Volume fraction] 44.3 % Normal 37-47 [facility] Comment on above: Performed By: #### L 501.3620, L500.2500, L100.0100, L3600.5100, L501.4020 #### [facility] [address] [place], [address] Hemoglobin (Bld) [Mass/Vol] 15.1 g/dL High 12.0-15.0 [facility] Comment on above: Performed By: #### L 501.3620, L500.2500, L100.0100, L3600.5100, L501.4020 #### [facility] [address] [place], [address] IG% 0.300 Normal 0.0-0.9 [facility] Comment on above: Result Comment: IG% - Immature Granulocytes (promyelocytes, myelocytes and metamyelocytes) > 1% indicates that a LEFT SHIFT is Present. Performed By: #### L 501.3620, L500.2500, L100.0100, L3600.5100, L501.4020 #### [facility] [address] [place], [address] Lymphocytes/100 WBC (Bld) 19.3 % Normal 19-41 [facility] Comment on above: Performed By: #### L 501.3620, L500.2500, L100.0100, L3600.5100, L501.4020 #### [facility] [address] [place], [address] MCH (RBC) [Entitic mass] 32.8 pg High 27.0-32.0 [facility] Comment on above: Performed By: #### L 501.3620, L500.2500, L100.0100, L3600.5100, L501.4020 #### [facility] [address] [place], [address] MCHC (RBC) [Mass/Vol] 34.1 g/dL Normal 32-36 [facility] Comment on above: Performed By: #### L 501.3620, L500.2500, L100.0100, L3600.5100, L501.4020 #### [facility] [address] [place], [address] MCV (RBC) [Entitic vol] 96.3 fL Normal 81-99 [facility] Comment on above: Performed By: #### L 501.3620, L500.2500, L100.0100, L3600.5100, L501.4020 #### [facility] [address] [place], [address] Monocytes/100 WBC (Bld) 8.5 % Normal 0-10 [facility] Comment on above: Performed By: #### L 501.3620, L500.2500, L100.0100, L3600.5100, L501.4020 #### [facility] [address] [place], [address] Neutrophils/100 WBC (Bld) 70.2 % High 47-70 [facility] Comment on above: Performed By: #### L 501.3620, L500.2500, L100.0100, L3600.5100, L501.4020 #### [facility] [address] [place], [address] Nucleated RBC (Bld) [#/Vol] 0 10*3/uL Normal 0-5 [facility] Comment on above: Performed By: #### L 501.3620, L500.2500, L100.0100, L3600.5100, L501.4020 #### [facility] [address] [place], [address] Platelet mean volume (Bld) [Entitic vol] 9.3 fL Normal 6.2-12.0 [facility] Comment on above: Performed By: #### L 501.3620, L500.2500, L100.0100, L3600.5100, L501.4020 #### [facility] [address] [place], [address] Platelets (Bld) [#/Vol] 244 10*3/uL Normal 150-450 [facility] Comment on above: Performed By: #### L 501.3620, L500.2500, L100.0100, L3600.5100, L501.4020 #### [facility] [address] [place], [address] RBC (Bld) [#/Vol] 4.60 10*6/uL Normal 4.2-5.4 [facility] Comment on above: Performed By: #### L 501.3620, L500.2500, L100.0100, L3600.5100, L501.4020 #### [facility] [address] [place], [address] RDW SD 42.7 fl Normal 35.1-43.9 [facility] Comment on above: Performed By: #### L 501.3620, L500.2500, L100.0100, L3600.5100, L501.4020 #### [facility] [address] [place], [address] WBC (Bld) [#/Vol] 7.0 10*3/uL Normal 4.4-11.[address] [facility] Comment on above: Performed By: #### L 501.3620, L500.2500, L100.0100, L3600.5100, L501.4020 #### [facility] [address] [place], [address] CPK Total, Creatine Kinaseon 12-29-2023 CPK TOTAL 81 U/L Normal 26-192 [facility] Comment on above: Order Comment: 1 Performed By: #### L 501.3620, L500.2500, L100.0100, L3600.5100, L501.4020 #### [facility] [address] [place], [place], [address] CT Chest, Abd, Pel w/Contras ton 12-29-2023 CT Chest, Abd, Pel w/Contrast [facility] Imaging Services [address] [place] [address] CT Chest, Abd, Pel w/Contrast MR#: [id number] Acct: [id number] Name: TERENCE VALDIVIA Rep #: [id number] : 1950 F 73 From: Aamir frank MD PCP: Dr. Will Lim MD Status: [facility] Study: CT Chest, Abd, Pel w/Contrast Date of Exam: Exam# [id number] Ordering Dr: Will Lim MD [id number] STUDY: CT CHEST, ABDOMEN T PELVIS WITH CONTRAST REASON FOR EXAM: Female, 73 years old. New diagnosis brain tumor, eval for mets/primary RADIATION DOSAGE (If Supplied By Facility): CTDIvol = ( 15.47 ) mGy, DLP = ( 1662.32 ) mGycm TECHNIQUE: Transaxial imaging was performed following intravenous administration of Oral and amp; IV Gastrografin and amp; 100mL Isovue-370. Multiplanar coronal and sagittal images were reformatted. Individualized dose optimization techniques were used for this CT. COMPARISON: No relevant priors. FINDINGS: CHEST The lungs are normal. There is no demonstrated pleural abnormality. Normal heart and pericardium. There are small lymph nodes within the mediastinum, which are normal in size and morphology most compatible with reactive lymph hyperplasia. Mildly enlarged right hilar lymph node measuring 2.2 cm. Normal unenhanced pulmonary arteries. Mild degree of atherosclerotic plaques at the level of the aortic arch. There are degenerative changes of the thoracic spine. ABDOMEN There is decreased attenuation of the liver consistent with steatosis. Normal gallbladder and extrahepatic biliary system. Normal spleen. Normal pancreas. Normal bilateral adrenal glands. Normal right kidney. Normal left kidney. Normal visualized stomach. Normal small intestine. There are scattered colonic diverticula consistent with diverticulosis. Moderate amount of fecal material is seen in the colon. The appendix is visualized and appears normal. There is scattered atherosclerotic calcification of the abdominal aorta, without a demonstrated aneurysm. Normal inferior vena cava. There is a small retroperitoneal lymphadenopathy with enlarged nodes no greater than 10mm in the short axis diameter. Normal abdominal wall. There are diffuse degenerative changes of the visualized lumbar spine. Facet joint osteoarthritis. PELVIS Normal urinary bladder. There is a 3 cm x 2.2 cm cyst in the right ovary. There is no pelvic fluid. There is no pelvic lymphadenopathy or mass lesion. Normal visualized pelvic arteries. CT/CT Chest, Abd, Pel w/Contrast IMPRESSION: Mild enlargement of the right hilar lymph node. 3 cm x 2.2 cm cyst in the right ovary. Electronically Signed: Aamir Bay MD at 14:53 EDT Reading Location ID and State: [facility] / [place] , Service support , CC: Dr. Will Lim MD Reimbursement Liaison: Signed Normal [facility] L501.4020on 12-29-2023 TROPONIN-I HS 3 pg/mL Normal 3.0-54.0 [facility] Comment on above: Order Comment: 1 Result Comment: Plea se Note: New Test Units and Gender Specific Reference Ranges. For more information see Policy Stat Procedure Colman High Sensitivity Troponin (TNIH) and attachments. Performed By: #### L 501.3620, L500.2500, L100.0100, L3600.5100, L501.4020 #### [facility] [address] [place], [address] Brain/Head W/WO Contraston 1 Brain/Head W/WO Contrast [facility] Imaging Services [address] [place] [address] Brain/Head W/WO Contrast MR#: [id number] Acct: [id number] Name: TERENCE VALDIVIA Rep #: [id number] : 1950 F 73 From: Aamir frank MD PCP: Dr. Will Lim MD Status: REG CLI Study: Brain/Head W/WO Contrast Date of Exam: 4 Exam# [id number] Ordering Dr: Will Lim MD [id number] STUDY: CT BRAIN WITH AND WITHOUT CONTRAST REASON FOR EXAM: Female, 73 years old. CLOSED HEAD INJURY you to recent multiple falls. RADIATION DOSAGE (If Supplied By Facility): CTDIvol = ( 44.99 ) mGy, DLP = ( 2579.55 ) mGycm TECHNIQUE: Transaxial CT imaging of the brain was performed pre and post contrast administration. The examination was performed with intravenous administration of IV 50mL Isovue-370. Individualized dose optimization techniques were used for this CT. COMPARISON: None. FINDINGS: Normal soft tissue structures. Normal calvarium. There is mild cerebral atrophy with widening of the extra-axial spaces and ventricular dilatation. There is a 3.6 cm x 2.8 cm enhancing mass in the posterior medial aspect of the right parietal occipital lobes. Mild surrounding mass effect. A neoplastic process should be ruled out. There is also evidence of heterogeneous enhancement in the superior right posterior parietal lobe. Metastatic deposit should be ruled out. Normal basal ganglia and thalami. Normal brainstem. Normal cerebellum. There is no intracranial hemorrhage. There are no findings of an acute ischemic infarction. Normal visualized paranasal sinuses. CT/Brain/Head W/WO Contrast IMPRESSION: 3.6 cm x 2.8 cm enhancing mass in the posterior aspect of the right parieto-occipital lobes with surrounding mass effect. A neoplastic process should be ruled out. There is also evidence of a heterogeneous area of enhancement in the superior right posterior parietal lobe adjacent to the cerebral vertex. A metastatic deposit should be ruled out. Electronically Signed: Aamir Bay MD at 14:36 EDT , CC: Dr. Will Lim MD Reimbursement Liaison: Signed Normal [facility] CBC W/Diff, Automatedon 10-2 Absolute Lymph 1.46 X10 3/uL Normal 0.83-4.51 [facility] Comment on above: Performed By: #### L 100.0100, L501.5200, L500.2500, L501.6710 #### [facility] [address] [place], [address] Absolute Neut 4.0 X10 3/uL Normal 2.0-7.7 [facility] Comment on above: Performed By: #### L 100.0100, L501.5200, L500.2500, L501.6710 #### [facility] [address] [place], [address] Basophils/100 WBC (Bld) 0.7 % Normal 0-[address] [facility] Comment on above: Performed By: #### L 100.0100, L501.5200, L500.2500, L501.6710 #### [facility] [address] [place], [address] Eosinophils/100 WBC (Bld) 1.0 % Normal 0-5 [facility] Comment on above: Performed By: #### L 100.0100, L501.5200, L500.2500, L501.6710 #### [facility] [address] [place], [address] Erythrocyte distribution width (RBC) [Ratio] 12.2 % Normal 11.6-14.6 [facility] Comment on above: Performed By: #### L 100.0100, L501.5200, L500.2500, L501.6710 #### [facility] [address] [place], [address] Hematocrit (Bld) [Volume fraction] 44.7 % Normal 37-47 [facility] Comment on above: Performed By: #### L 100.0100, L501.5200, L500.2500, L501.6710 #### [facility] [address] [place], [address] Hemoglobin (Bld) [Mass/Vol] 14.9 g/dL Normal 12.0-15.0 [facility] Comment on above: Performed By: #### L 100.0100, L501.5200, L500.2500, L501.6710 #### [facility] [address] [place], [address] IG% 0.300 Normal 0.0-0.9 [facility] Comment on above: Result Comment: IG% - Immature Granulocytes (promyelocytes, myelocytes and metamyelocytes) > 1% indicates that a LEFT SHIFT is Present. Performed By: #### L 100.0100, L501.5200, L500.2500, L501.6710 #### [facility] [address] [place], [address] Lymphocytes/100 WBC (Bld) 24.0 % Normal 19-41 [facility] Comment on above: Performed By: #### L 100.0100, L501.5200, L500.2500, L501.6710 #### [facility] [address] [place], [address] MCH (RBC) [Entitic mass] 32.3 pg High 27.0-32.0 [facility] Comment on above: Performed By: #### L 100.0100, L501.5200, L500.2500, L501.6710 #### [facility] [address] [place], [address] MCHC (RBC) [Mass/Vol] 33.3 g/dL Normal 32-36 [facility] Comment on above: Performed By: #### L 100.0100, L501.5200, L500.2500, L501.6710 #### [facility] [address] [place], [address] MCV (RBC) [Entitic vol] 96.8 fL Normal 81-99 [facility] Comment on above: Performed By: #### L 100.0100, L501.5200, L500.2500, L501.6710 #### [facility] [address] [place], [address] Monocytes/100 WBC (Bld) 7.9 % Normal 0-10 [facility] Comment on above: Performed By: #### L 100.0100, L501.5200, L500.2500, L501.6710 #### [facility] [address] [place], [address] Neutrophils/100 WBC (Bld) 66.1 % Normal 47-70 [facility] Comment on above: Performed By: #### L 100.0100, L501.5200, L500.2500, L501.6710 #### [facility] [address] [place], [address] Nucleated RBC (Bld) [#/Vol] 0 10*3/uL Normal 0-5 [facility] Comment on above: Performed By: #### L 100.0100, L501.5200, L500.2500, L501.6710 #### [facility] [address] [place], [address] Platelet mean volume (Bld) [Entitic vol] 9.2 fL Normal 6.2-12.0 [facility] Comment on above: Performed By: #### L 100.0100, L501.5200, L500.2500, L501.6710 #### [facility] [address] [place], [address] Platelets (Bld) [#/Vol] 237 10*3/uL Normal 150-450 [facility] Comment on above: Performed By: #### L 100.0100, L501.5200, L500.2500, L501.6710 #### [facility] [address] [place], [address] RBC (Bld) [#/Vol] 4.62 10*6/uL Normal 4.2-5.4 [facility] Comment on above: Performed By: #### L 100.0100, L501.5200, L500.2500, L501.6710 #### [facility] [address] [place], [address] RDW SD 43.5 fl Normal 35.1-43.9 [facility] Comment on above: Performed By: #### L 100.0100, L501.5200, L500.2500, L501.6710 #### [facility] [address] [place], [address] WBC (Bld) [#/Vol] 6.1 10*3/uL Normal 4.4-11.[address] [facility] Comment on above: Performed By: #### L 100.0100, L501.5200, L500.2500, L501.6710 #### [facility] [address] [place], [address] Comprehensive Metabolic Prof ilon 12-27-2023 Albumin [Mass/Vol] 3.8 g/dL Normal 3.2-5.[address] [facility] Comment on above: Performed By: #### L 100.0100, L501.5200, L500.2500, L501.6710 #### [facility] [address] [place], [address] Albumin/Globulin [Mass ratio] 1.2 {ratio} Normal 0.9-2.4 [facility] Comment on above: Performed By: #### L 100.0100, L501.5200, L500.2500, L501.6710 #### [facility] [address] [place], [address] ALK P 148 U/L High 45-117 [facility] Comment on above: Performed By: #### L 100.0100, L501.5200, L500.2500, L501.6710 #### [facility] [address] [place], [address] ALT [Catalytic activity/Vol] 42 U/L Normal 13-56 [facility] Comment on above: Performed By: #### L 100.0100, L501.5200, L500.2500, L501.6710 #### [facility] [address] [place], [address] AST [Catalytic activity/Vol] 28 U/L Normal 15-37 [facility] Comment on above: Performed By: #### L 100.0100, L501.5200, L500.2500, L501.6710 #### [facility] [address] [place], [address] Bilirubin [Mass/Vol] 0.90 mg/dL Normal 0.20-1.00 [facility] Comment on above: Result Comment: For patients on eltrombopag therapy, use of Dimension Colman TBIL is not recommended. Performed By: #### L 100.0100, L501.5200, L500.2500, L501.6710 #### [facility] [address] [place], [address] BUN/CRE 13.2 RATIO Normal 10-20 [facility] Comment on above: Performed By: #### L 100.0100, L501.5200, L500.2500, L501.6710 #### [facility] [address] [place], [address] CA,Total 9.1 mg/dL Normal 8.5-10.1 [facility] Comment on above: Performed By: #### L 100.0100, L501.5200, L500.2500, L501.6710 #### [facility] [address] [place], [address] Chloride [Moles/Vol] 107 mmol/L Normal 98-107 [facility] Comment on above: Performed By: #### L 100.0100, L501.5200, L500.2500, L501.6710 #### [facility] [address] [place], [address] CO2 [Moles/Vol] 29.0 mmol/L Normal 21.0-32.0 [facility] Comment on above: Performed By: #### L 100.0100, L501.5200, L500.2500, L501.6710 #### [facility] [address] [place], [address] Creatinine [Mass/Vol] 0.83 mg/dL Normal 0.55-1.02 [facility] Comment on above: Result Comment: The validity of the calculated GFR GFRAA in patients over 70 years has not been determined. Clinical correlation is essential. Performed By: #### L 100.0100, L501.5200, L500.2500, L501.6710 #### [facility] [address] [place], [address] EST GFR - AA 86 mL/min Normal >60 [facility] Comment on above: Result Comment: Afri can Bangladeshi GFR Calc Performed By: #### L 100.0100, L501.5200, L500.2500, L501.6710 #### [facility] [address] [place], [address] GAP 4 Low 5-15 [facility] Comment on above: Performed By: #### L 100.0100, L501.5200, L500.2500, L501.6710 #### [facility] [address] [place], [address] GFR/1.73 sq M.predicted among non-blacks MDRD (S/P/Bld) [Vol rate/Area] 71 mL/min/{1.73_m2} Normal >60 [facility] Comment on above: Result Comment: Non- GFR Calc Performed By: #### L 100.0100, L501.5200, L500.2500, L501.6710 #### [facility] [address] [place], [address] Globulin (S) [Mass/Vol] 3.3 g/dL Normal 2.2-4.2 [facility] Comment on above: Performed By: #### L 100.0100, L501.5200, L500.2500, L501.6710 #### [facility] [address] [place], [address] Glucose [Mass/Vol] 137 mg/dL High 74-[address] [facility] Comment on above: Result Comment: Fast ing Glucose result greater than or equal to 126 mg/dL suggests DIABETES MELLITUS per A.D.A. criteria. Performed By: #### L 100.0100, L501.5200, L500.2500, L501.6710 #### [facility] [address] [place], [address] Potassium [Moles/Vol] 4.0 mmol/L Normal 3.5-5.1 [facility] Comment on above: Performed By: #### L 100.0100, L501.5200, L500.2500, L501.6710 #### [facility] [address] [place], [address] Sodium [Moles/Vol] 140 mmol/L Normal 136-[address] [facility] Comment on above: Performed By: #### L 100.0100, L501.5200, L500.2500, L501.6710 #### [facility] [address] [place], [address] T PROT 7.1 g/dL Normal 6.4-8.2 [facility] Comment on above: Performed By: #### L 100.0100, L501.5200, L500.2500, L501.6710 #### [facility] [address] [place], [address] Urea nitrogen [Mass/Vol] 11 mg/dL Normal 7-18 [facility] Comment on above: Performed By: #### L 100.0100, L501.5200, L500.2500, L501.6710 #### [facility] [address] [place], [address] Elbow min 3 Viewson 12-27-19 Elbow min 3 Views [facility] Imaging Services [address] [place] [address] Elbow min 3 Views MR#: [id number] Acct: [id number] Name: TERENCE VALDIVIA Rep #: [id number] : 1950 F 73 From: Aamir frank MD PCP: Dr. Will Lim MD Status: REG [facility] Study: Elbow min 3 Views Date of Exam: 12/27/23 Exam# [id number] Ordering Dr: Will Lim MD [id number] STUDY: X-RAY - LEFT ELBOW REASON FOR EXAM: Female, 73 years old. LEFT ELBOW PAIN TECHNIQUE: 3 view(s) of the elbow. COMPARISON: None. FINDINGS: Normal visualized humerus, radius and ulna. Normal radiocapitellar and ulnotrochlear articulations. The soft tissue structures are unremarkable. RAD/Elbow min 3 Views IMPRESSION: Normal x-ray examination of the elbow. Electronically Signed: Aamir Bay MD at 15:02 EDT , CC: Dr. Will Lim MD Reimbursement Liaison: Signed Normal [facility] Ribs Uni Min 3V w/PA Cheston 12-27-2023 Ribs Uni Min 3V w/PA Chest [facility] Services [address] [place] [address] Ribs Uni Min 3V w/PA Chest MR#: [id number] Acct: [id number] Name: TERENCE VALDIVIA Rep #: [id number] : 1950 F 73 From: Aamir frank MD PCP: Dr. Will Lim MD Status: REG CLI Study: Ribs Uni Min 3V w/PA Chest Date of Exam: 12/26 Exam# [id number] Ordering Dr: Will Lim MD [id number] STUDY: X-RAY - UNILATERAL RIBS ( LEFT ) WITH CHEST REASON FOR EXAM: Female, 73 years old. RIB PAIN ON LEFT SIDE TECHNIQUE - RIBS: 5 view(s) of the ribs. TECHNIQUE - CHEST: Single PA view of the chest. COMPARISON: None. FINDINGS - RIBS: Normal visualized ribs without a demonstrated fracture. FINDINGS - CHEST: The lungs are clear and expanded. There is no demonstrated pleural abnormality. Normal size heart. Normal mediastinum and nico. Normal visualized pulmonary arteries. There is atherosclerotic calcification of the aortic arch with tortuosity. There are diffuse degenerative changes of the visualized thoracic spine. Normal visualized ribs, clavicles, and shoulders. There is no demonstrated abnormality of the visualized soft tissue structures of the upper abdomen. RAD/Ribs Uni Min 3V w/PA Chest IMPRESSION: RIBS: Normal x-ray examination of the ribs. CHEST: Normal x-ray examination of the chest. Electronically Signed: Aamir Bay MD at 15:02 EDT , CC: Dr. Will Lim MD Reimbursement Liaison: Signed Normal [facility] Inital Evaluation (1) - PTon 2023 Inital Evaluation (1) - PT [facility] [place] [address] / REHABILITATION SERVICES INITIAL EVALUATION MR#: [id number] Acct: [id number] Name: TERENCE VALDIVIA Rep #: [id number] : 1950 72 From: Cassidy Patino PT. T, OCS Referring Dr.: Dr. Will Lim MD Status: REG R Insurance: MEDICARE PART A B [address] Patient's Visit Information Visit Information Visit Information: TERENCE VALDIVIA is a 72 year old F referred to Physical Therapy by Dr. Will Lim MD with a diagnosis of BILATERAL LEG WEAKNESS. Date of Evaluation: 12/08/23 Physical Therapist: Jose Oro PT, Cert T, OCS Visit Plan Frequency: 2x /Week Duration: 4 Weeks Plan: PRECAUTIONS PATIENT HAS BEEN FALLING WEAKNESS LEFT > RIGHT PT INTERVENTIONS PROGRESSIVE BALANCE TRAINING ,BLE STRENGTHENING ( ESPECIALLY LEFT SIDE) ,FUNCTIONAL STRENGTHENING AND ENDURANCE EX'S Subjective Subjective: This 72 y/o female presents to physical therapy with bilateral leg weakness. Patient has been falling and weakness in legs with last episode 2 days ago. Patient has been falling past month 8 x times past month. Patient normal states legs gives way. Patient seen Dr haines PT and plan to see back specialist and see Neurologist. Patient has min back pain and left knee pain. Patient denies paresthesia/tingling . Denies dizziness /nausea. Patient has difficulty steps ,unable to squat and kneel. Patient condition affects QOL and function walking/falling. Patient goals to stop falling and get stronger. SOCIAL: VOCATION: retired Pain Bilateral Back: Pain Intensity (Out of 10): 6 Pain Intensity Range: 10 Comment: shoulders blades Objective Objective: POSTURE: WFL GAIT: reciprocal pattern unsteady decrease swing phase Left lower left ,leans to right NEURO: denies paresthesia/tingling , reflexes C5-6-7 3/3 ,L3-4,L4-5,L5-S1 3/3 AROM : supine knee flexion left 0-125 degrees ,right 0-115 degrees MMT: shoulder right 4-/5 ,left 3+/5 MMT: ( peak force ) quads right 28.7 ,LEFT 21.2,Hamstrings right 23.2 ,left 15.3 ,hip flexion right 24.2,left 15.3 ,left ankle 14.3 dorsiflexion STAIRS: on step at time with rail Balance/Special Test Scores Functional Gait Assessment Score: 7 % Disability: 76.6700 CATSIB Score (Max score 120 seconds): 10 Lower Extremity Functional Score: 33 Goals Goal 1:: Patient to be I with HEP for legs and balance Goal Time Frame: 4-6 Weeks Goal 2:: Patient to improve strength BLE especially left by 5-10# peak force to decrease risk of falls. Goal Time Frame: 4-6 Weeks Goal 3:: Patient to improve LFES score by 5-10 points to improve QOL Goal Time Frame: 4-6 Weeks Goal 4:: Patient to improve CATSIBE by 5-10# to improve balance and decrease risk of falls Goal Time Frame: 4-6 Weeks Goal 5:: Patient to improve functional gait assessment score by 5 -10 # to decrease risk of falls Goal Time Frame: 4-6 Weeks Goal 6:: Patient to improve quality of gait and decrease falls 90% Goal Time Frame: 4-6 Weeks Rehabilitation Potential Physical Therapy Diagnosis: This patient has weakness in legs with left > right and UE weakness left side with unsteady gait leans to left decrease advancement left leg with impaired balance galling and poor CATSIBE thus benefit from skilled PT Rehabilitation Potential: Good Anticipated Interventions Patient/Client Instruction: Educate patient on: Condition and Plan of Care For the Purpose of:: To increase ROM, To improve muscle performance and motor function, To improve ability to perform ADL's, To increase tolerance to activity/condition/pos ition, To improve ability of physical actions for home/community/work/le isure, To improve gait and locomotor functions, To increase flexibility/ROM, To improve endurance, To improve balance and To improve tolerance to ADL's Therapeutic Exercise to Include: Strength training, Endurance training, Balance training, Coordination and Gait and locomotor training Comment: BLE For the Purpose of:: To improve muscle performance and motor function, To improve ability to perform ADL's, To increase tolerance to activity/condition/pos ition, To improve ability of physical actions for home/community/work/le isure, To improve gait and locomotor functions, To increase flexibility/ROM, To improve endurance, To improve balance and To improve tolerance to ADL's Text: Thank you for the opportunity to evaluate your patient. For Medicare and Medicare HMO plans, please review the plan of care and approve it. It will need to be FAXED BACK to us at [phone] for Medicare purposes. For Medicare only, by signing this I certify the plan of care. Please let me know if there are questions or concerns regarding this plan of care. Physician Signature: (more content not included)... Normal [facility] CBC W/Diff, Automatedon 10-0 Absolute Lymph 1.85 X10 3/uL Normal 0.83-4.51 [facility] Comment on above: Performed By: #### L 100.0100, L501.5200, L500.2500, L501.6710 #### [facility] [address] [place], [place], [address] Absolute Neut 3.7 X10 3/uL Normal 2.0-7.7 [facility] Comment on above: Performed By: #### L 100.0100, L501.5200, L500.2500, L501.6710 #### [facility] [address] [place], [address] Basophils/100 WBC (Bld) 0.6 % Normal 0-[address] [facility] Comment on above: Performed By: #### L 100.0100, L501.5200, L500.2500, L501.6710 #### [facility] [address] [place], [address] Eosinophils/100 WBC (Bld) 1.5 % Normal 0-5 [facility] Comment on above: Performed By: #### L 100.0100, L501.5200, L500.2500, L501.6710 #### [facility] [address] [place], [address] Erythrocyte distribution width (RBC) [Ratio] 12.2 % Normal 11.6-14.6 [facility] Comment on above: Performed By: #### L 100.0100, L501.5200, L500.2500, L501.6710 #### [facility] [address] [place], [address] Hematocrit (Bld) [Volume fraction] 41.8 % Normal 37-47 [facility] Comment on above: Performed By: #### L 100.0100, L501.5200, L500.2500, L501.6710 #### [facility] [address] [place], [address] Hemoglobin (Bld) [Mass/Vol] 14.4 g/dL Normal 12.0-15.0 [facility] Comment on above: Performed By: #### L 100.0100, L501.5200, L500.2500, L501.6710 #### [facility] [address] [place], [address] IG% 0.200 Normal 0.0-0.9 [facility] Comment on above: Result Comment: IG% - Immature Granulocytes (promyelocytes, myelocytes and metamyelocytes) > 1% indicates that a LEFT SHIFT is Present. Performed By: #### L 100.0100, L501.5200, L500.2500, L501.6710 #### [facility] [address] [place], [address] Lymphocytes/100 WBC (Bld) 29.8 % Normal 19-41 [facility] Comment on above: Performed By: #### L 100.0100, L501.5200, L500.2500, L501.6710 #### [facility] [address] [place], [address] MCH (RBC) [Entitic mass] 33.0 pg High 27.0-32.0 [facility] Comment on above: Performed By: #### L 100.0100, L501.5200, L500.2500, L501.6710 #### [facility] [address] [place], [address] MCHC (RBC) [Mass/Vol] 34.4 g/dL Normal 32-36 [facility] Comment on above: Performed By: #### L 100.0100, L501.5200, L500.2500, L501.6710 #### [facility] [address] [place], [address] MCV (RBC) [Entitic vol] 95.9 fL Normal 81-[address] [facility] Comment on above: Performed By: #### L 100.0100, L501.5200, L500.2500, L501.6710 #### [facility] [address] [place], [address] Monocytes/100 WBC (Bld) 8.9 % Normal 0-[address] [facility] Comment on above: Performed By: #### L 100.0100, L501.5200, L500.2500, L501.6710 #### [facility] [address] [place], [address] Neutrophils/100 WBC (Bld) 59.0 % Normal 47-70 [facility] Comment on above: Performed By: #### L 100.0100, L501.5200, L500.2500, L501.6710 #### [facility] [address] [place], [address] Nucleated RBC (Bld) [#/Vol] 0 10*3/uL Normal 0-5 [facility] Comment on above: Performed By: #### L 100.0100, L501.5200, L500.2500, L501.6710 #### [facility] [address] [place], [address] Platelet mean volume (Bld) [Entitic vol] 9.7 fL Normal 6.2-12.0 [facility] Comment on above: Performed By: #### L 100.0100, L501.5200, L500.2500, L501.6710 #### [facility] [address] [place], [address] Platelets (Bld) [#/Vol] 267 10*3/uL Normal 150-450 [facility] Comment on above: Performed By: #### L 100.0100, L501.5200, L500.2500, L501.6710 #### [facility] [address] [place], [address] RBC (Bld) [#/Vol] 4.36 10*6/uL Normal 4.2-5.4 [facility] Comment on above: Performed By: #### L 100.0100, L501.5200, L500.2500, L501.6710 #### [facility] [address] [place], [address] RDW SD 43.3 fl Normal 35.1-43.9 [facility] Comment on above: Performed By: #### L 100.0100, L501.5200, L500.2500, L501.6710 #### [facility] [address] [place], [address] WBC (Bld) [#/Vol] 6.2 10*3/uL Normal 4.4-11.[address] [facility] Comment on above: Performed By: #### L 100.0100, L501.5200, L500.2500, L501.6710 #### [facility] [address] [place], [address] Comprehensive Metabolic Prof ilon 12-01-2023 Albumin [Mass/Vol] 3.7 g/dL Normal 3.2-5.[address] [facility] Comment on above: Performed By: #### L 100.0100, L501.5200, L500.2500, L501.6710 #### [facility] [address] [place], [address] Albumin/Globulin [Mass ratio] 1.1 {ratio} Normal 0.9-2.4 [facility] Comment on above: Performed By: #### L 100.0100, L501.5200, L500.2500, L501.6710 #### [facility] [address] [place], [address] ALK P 139 U/L High 45-117 [facility] Comment on above: Performed By: #### L 100.0100, L501.5200, L500.2500, L501.6710 #### [facility] [address] [place], [address] ALT [Catalytic activity/Vol] 51 U/L Normal 13-56 [facility] Comment on above: Performed By: #### L 100.0100, L501.5200, L500.2500, L501.6710 #### [facility] [address] [place], [address] AST [Catalytic activity/Vol] 48 U/L High 15-37 [facility] Comment on above: Result Comment: Mode rate Hemolysis, Result may be falsely increased. Performed By: #### L 100.0100, L501.5200, L500.2500, L501.6710 #### [facility] [address] [place], [address] Bilirubin [Mass/Vol] 1.00 mg/dL Normal 0.20-1.00 [facility] Comment on above: Result Comment: For patients on eltrombopag therapy, use of Dimension Colman TBIL is not recommended. Performed By: #### L 100.0100, L501.5200, L500.2500, L501.6710 #### [facility] [address] [place], [address] BUN/CRE 12.9 RATIO Normal 10-20 [facility] Comment on above: Performed By: #### L 100.0100, L501.5200, L500.2500, L501.6710 #### [facility] [address] [place], [address] CA,Total 9.3 mg/dL Normal 8.5-10.1 [facility] Comment on above: Performed By: #### L 100.0100, L501.5200, L500.2500, L501.6710 #### [facility] [address] [place], [address] Chloride [Moles/Vol] 106 mmol/L Normal 98-107 [facility] Comment on above: Performed By: #### L 100.0100, L501.5200, L500.2500, L501.6710 #### [facility] [address] [place], [address] CO2 [Moles/Vol] 29.0 mmol/L Normal 21.0-32.0 [facility] Comment on above: Performed By: #### L 100.0100, L501.5200, L500.2500, L501.6710 #### [facility] [address] [place], [address] Creatinine [Mass/Vol] 0.85 mg/dL Normal 0.55-1.02 [facility] Comment on above: Result Comment: The validity of the calculated GFR GFRAA in patients over 70 years has not been determined. Clinical correlation is essential. Performed By: #### L 100.0100, L501.5200, L500.2500, L501.6710 #### [facility] [address] [place], [address] EST GFR - AA 84 mL/min Normal >60 [facility] Comment on above: Result Comment: Afri can Bangladeshi GFR Calc Performed By: #### L 100.0100, L501.5200, L500.2500, L501.6710 #### [facility] [address] [place], [address] GAP 5 Normal 5-15 [facility] Comment on above: Performed By: #### L 100.0100, L501.5200, L500.2500, L501.6710 #### [facility] [address] [place], [address] GFR/1.73 sq M.predicted among non-blacks MDRD (S/P/Bld) [Vol rate/Area] 70 mL/min/{1.73_m2} Normal >60 [facility] Comment on above: Result Comment: Non- GFR Calc Performed By: #### L 100.0100, L501.5200, L500.2500, L501.6710 #### [facility] [address] [place], [address] Globulin (S) [Mass/Vol] 3.4 g/dL Normal 2.2-4.2 [facility] Comment on above: Performed By: #### L 100.0100, L501.5200, L500.2500, L501.6710 #### [facility] [address] [place], [address] Glucose [Mass/Vol] 104 mg/dL Normal 74-[address] [facility] Comment on above: Result Comment: Fast ing Glucose result from 100 to 125 mg/dL suggests IMPAIRED HOMEOSTASIS per A.D.A. criteria. Performed By: #### L 100.0100, L501.5200, L500.2500, L501.6710 #### [facility] [address] [place], [address] Potassium [Moles/Vol] 3.9 mmol/L Normal 3.5-5.1 [facility] Comment on above: Result Comment: Mode rate Hemolysis, Result may be falsely increased. Performed By: #### L 100.0100, L501.5200, L500.2500, L501.6710 #### [facility] [address] [place], [address] Sodium [Moles/Vol] 139 mmol/L Normal 136-[address] [facility] Comment on above: Performed By: #### L 100.0100, L501.5200, L500.2500, L501.6710 #### [facility] [address] [place], [address] T PROT 7.1 g/dL Normal 6.4-8.2 [facility] Comment on above: Performed By: #### L 100.0100, L501.5200, L500.2500, L501.6710 #### [facility] [address] [place], [address] Urea nitrogen [Mass/Vol] 11 mg/dL Normal 7-18 [facility] Comment on above: Performed By: #### L 100.0100, L501.5200, L500.2500, L501.6710 #### [facility] [address] [place], [address] Thyroid Stim Hormone (TSH)on 12-01-2023 TSH 1.950 uIU/mL Normal 0.358-3.740 [facility] Comment on above: Performed By: #### L 100.0100, L501.5200, L500.2500, L501.6710 #### [facility] [address] [place], [address] Vitamin D,25 Hydroxyon 11-30 Vitamin D 25-OH 31.6 ng/mL Normal [facility] Comment on above: Result Comment: Rebeca min D 25(OH) Status Range Deficiency <20 ng/mL (50nmol/L) Insufficiency 20 - 30 ng/mL (50 - 75 nmol/L) Sufficiency 30 - 100 ng/mL (75 - 250 nmol/L) Toxicity >100 ng/mL (>250 nmol/L) Performed By: #### L 100.0100, L501.5200, L500.2500, L501.6710 #### [facility] [address] [place], [address] Knee 4 or More Viewson 10-31 Knee 4 or More Views [facility] [address] [place] [address] Knee 4 or More Views MR#: [id number] Acct: [id number] Name: TERENCE VALDIVIA Rep #: [id number] : 1950 F 72 From: Aramis Novoa MD PCP: Dr. Will Lim MD Status: [facility] CLI Study: Knee 4 or More Views Date of Exam: 11/01/23 Exam# [id number] Ordering Dr: Lonny Ch [place] [id number] STUDY: X-RAY - LEFT KNEE REASON FOR EXAM: Female, 72 years old. KNEE PAIN TECHNIQUE: 4 view(s) of the knee. COMPARISON: 05/24/2022 FINDINGS: Normal visualized distal femur. Normal visualized proximal tibia and fibula. Normal proximal tibiofibular articulation. There is severe degenerative arthrosis of the medial femorotibial compartment with severe joint space narrowing. There is moderate degenerative arthrosis of the lateral femorotibial compartment with moderate joint space narrowing. There is mild degenerative arthrosis of the patellofemoral articulation. The soft tissue structures are unremarkable. RAD/Knee 4 or More Views IMPRESSION: Degenerative arthrosis. Electronically Signed: Aramis Novoa MD at 8:34 EDT , CC: Dr. Lonny Ch MD; Dr. Will Lim MD Reimbursement Liaison: Signed Normal [facility] Ribs Uni Min 3V w/PA Cheston 11-01-2023 Ribs Uni Min 3V w/PA Chest [facility] [address] [place] [address] Ribs Uni Min 3V w/PA Chest MR#: [id number] Acct: [id number] Name: TERENCE VALDIVIA Rep #: [id number] : 1950 F 72 From: Aramis Novoa MD PCP: Dr. Will Lim MD Status: REG CLI Study: Ribs Uni Min 3V w/PA Chest Date of Exam: 10/31 Exam# [id number] Ordering Dr: Lonny Ch [place] [id number] STUDY: X-RAY - UNILATERAL RIBS ( RIGHT ) WITH CHEST REASON FOR EXAM: Female, 72 years old. RIB PAIN TECHNIQUE - RIBS: 4 view(s) of the ribs. TECHNIQUE - CHEST: Single PA view of the chest. COMPARISON: None. FINDINGS - RIBS: Normal visualized ribs without a demonstrated fracture. FINDINGS - CHEST: The lungs are clear and expanded. There is no demonstrated pleural abnormality. Normal size heart. Normal mediastinum and nico. Normal visualized pulmonary arteries. Normal visualized aortic arch and descending thoracic aorta. Normal visualized thoracic spine. Normal visualized ribs, clavicles, and shoulders. There is no demonstrated abnormality of the visualized soft tissue structures of the upper abdomen. RAD/Ribs Uni Min 3V w/PA Chest IMPRESSION: RIBS: Normal x-ray examination of the ribs. CHEST: Normal x-ray examination of the chest. Electronically Signed: Aramis Novoa MD at 8:35 EDT , CC: Dr. Lonny Ch MD; Dr. Will Lim MD Reimbursement Liaison: Signed Normal [facility] Orthopedic Visit Reporton Orthopedic Visit Report [facility] [address] [place] [address] OFFICE VISIT Date of Service: 08/15/23 MR#: [id number] Acct: [id number] Name: TERENCE VALDIVIA Rep #: [id number] : 1950 Provider: Dr. Az vega MD Age/Sex: 72/F Location: [facility] Status: Signed Intake Vital Signs 02/08/23 13:13 Height 5 ft 6 in Intake Visit Reasons: RIGHT SHOULDER Chief Complaint: right shoulder Accompanied by: Self Is patient in pain?: Yes Allergies bee venom protein (honey bee) (bee stings) Allergy (Verified 08/15/23 10:08) Swelling codeine Allergy (Verified 08/15/23 10:08) Nausea Tetanus Vaccines and Toxoid Allergy (Verified 08/15/23 10:08) Swelling Medications ???Medication ???Instructions ???Recorded ???Confirmed ???Type levothyroxine 137 mcg tablet 137 mcg PO DAILY 04/30/22 08/15/23 History losartan 50 mg tablet 50 mg PO DAILY 04/30/22 08/15/23 History multivitamin 1 tab PO DAILY 04/30/22 08/15/23 History naproxen 500 mg tablet (Naprosyn) 500 mg PO BID PRN pain #14 tabs 04/30/22 08/15/23 Rx solifenacin 10 mg tablet 10 mg PO DAILY 04/30/22 08/15/23 History venlafaxine 75 mg capsule,extended 75 mg PO DAILY 04/30/22 08/15/23 History release 24 hr vitamins A,C,F-abpm-ausatm 2,148 2 tab PO DAILY 04/30/22 08/15/23 History mcg-113 mg-45 mg-17.4 mg tablet (PreserVision AREDS) semaglutide 0.25 mg or 0.5 mg (2 0.25 mg subcut QWEEK 02/01/23 08/15/23 History mg/3 mL) subcutaneous pen injector (Ozempic) gabapentin 100 mg capsule 100 mg PO TID 04/04/23 08/15/23 History bupropion HCl 200 mg tablet,12 hr 200 mg PO DAILY PRN 06/21/23 08/15/23 History sustained-release PFSH Medical History Tendinosis of right shoulder Primary osteoarthritis, right shoulder Right shoulder tendonitis Type 2 diabetes mellitus Surgical History History of knee surgery Family History Father CHF (congestive heart failure) Social History Smoking Status: Never smoker HPI RIGHT SHOULDER Details: This documentation accurately reflects the service provided and the decisions made by me, Dr. Az Franco MD 08/15/23 1007. Part of today???s visit was documented by [ ], acting as scribe. TERENCE VALDIVIA is a 72 year old F here today for follow-up right shoulder pain. The patient had a previous rotator cuff repair and subsequent MRI that showed the tendon to be intact. The patient has some arthritis of the shoulder some mild crepitus but overall the pain is doing much better with the recent cortisone injection about 2 months ago and the shoulder and recently more recently been the shoulder and injection in the neck with Dr. Ch that seems to be helping as well. Ortho Exam General General: Yes no acute distress Neurologic: Yes alert and Yes oriented x3 Psychologic: Yes reasonable and appropriate Right Shoulder Skin/Wound: Yes CDI, No ecchymosis, No erythema and No swelling Testing: Positive Hawkin's and Neer's SHOULDER: Pain with range of motion testing of the shoulder. Active forward elevation 150 degrees passively to 165 degrees. External rotation 30 degrees. Strength in forward elevation 4+/5. Coding Level of Care Code Off vis,est,level 3 Diagnoses Tendinosis of right shoulder M67.813 Primary osteoarthritis, right shoulder M19.011 Assessment and Plan Assessment and Plan (1) Tendinosis of right shoulder: Status: Acute Plan: 72-year-old female follow-up right shoulder pain. Patient is satisfied to continue on with injections and conservative management. They are not interested in shoulder operation at this point therefore they will continue to follow-up with Dr. Ch and do the injections on the neck and shoulder and if they are interested in a surgical option for this they would see me for the shoulder at that point otherwise follow-up as needed. (2) Primary osteoarthritis, right shoulder: Status: Acute 08/15/23 1021 Date Az Ferguson Signature: Date (if applicable) CC: Normal [facility] Orthopedic Visit Reporton Orthopedic Visit Report [facility] [address] [place] [id number] OFFICE VISIT Date of Service: 07/11/23 MR#: [id number] Acct: [id number] Name: TERENCE VALDIVIA Rep #: [id number] : 1950 Provider: Dr. Az vega MD Age/Sex: 72/F Location: [facility] Status: Signed Intake Vital Signs 02/08/23 13:13 Height 5 ft 6 in Intake Visit Reasons: RIGHT SHOULDER Chief Complaint: right shoulder Accompanied by: Self Is patient in pain?: Yes Allergies bee venom protein (honey bee) [bee stings] Allergy (Verified 07/11/23 10:50) Swelling codeine Allergy (Verified 07/11/23 10:50) Nausea Tetanus Vaccines and Toxoid Allergy (Verified 07/11/23 10:50) Swelling Medications levothyroxine 137 mcg tablet 137 mcg PO DAILY 04/30/22 [History Confirmed 07/11/23] losartan 50 mg tablet 50 mg PO DAILY 04/30/22 [History Confirmed 07/11/23] multivitamin 1 tab PO DAILY 04/30/22 [History Confirmed 07/11/23] naproxen 500 mg tablet (Naprosyn) 500 mg PO BID PRN pain #14 tabs 04/30/22 [Rx Confirmed 07/11/23] solifenacin 10 mg tablet 10 mg PO DAILY 04/30/22 [History Confirmed 07/11/23] venlafaxine 75 mg capsule,extended release 24 hr 75 mg PO DAILY 04/30/22 [History Confirmed 07/11/23] vitamins A,C,A-ajvu-agxdvf 2,148 mcg-113 mg-45 mg-17.4 mg tablet (PreserVision AREDS) 2 tab PO DAILY 04/30/22 [History Confirmed 07/11/23] semaglutide 0.25 mg or 0.5 mg (2 mg/3 mL) subcutaneous pen injector (Ozempic) 0.25 mg subcut QWEEK 02/01/23 [History Confirmed 07/11/23] gabapentin 100 mg capsule 100 mg PO TID 04/04/23 [History Confirmed 07/11/23] bupropion HCl 200 mg tablet,12 hr sustained-release 200 mg PO DAILY PRN 06/21/23 [History Confirmed 07/11/23] PFSH Medical History Primary osteoarthritis, right shoulder Right shoulder tendonitis Tendinosis of right shoulder Type 2 diabetes mellitus Surgical History History of knee surgery Family History Father CHF (congestive heart failure) Social History Smoking Status: Never smoker HPI RIGHT SHOULDER Details: This documentation accurately reflects the service provided and the decisions made by me, Dr. Az Franco MD 07/11/23 1048. Part of today???s visit was documented by [ ], acting as scribe. TERENCE VALDIVIA is a 72 year old F here today for FU R shoulder pain, still some neck and trapezius pain, worse with lifting. had a cortisone injection shoulder 2 months ago in the pain clinic. it helped, but pain came back in the neck and anterior shoulder. wants to try and avoid an operation. had open cuff repair 10 years ago. has been doing PT with minimal improvement over 6 weks. Ortho Exam General General: Yes no acute distress Neurologic: Yes alert and Yes oriented x3 Psychologic: Yes reasonable and appropriate Right Shoulder Skin/Wound: Yes CDI, No ecchymosis, No erythema and No swelling Testing: Positive Hawkin's and Neer's SHOULDER: Pain with range of motion testing of the shoulder. Active forward elevation 150 degrees passively to 165 degrees. External rotation 30 degrees. Strength in forward elevation 4+/5. Coding Level of Care Code Off vis,est,level 3 Diagnoses Primary osteoarthritis, right shoulder M19.011 Tendinosis of right shoulder M67.813 Assessment and Plan Assessment and Plan (1) Primary osteoarthritis, right shoulder: Status: Acute Plan: 72-year-old female with ongoing right shoulder pain. Some of this pain is likely referred pain from the neck although show I think that a certain component of pain is also coming from the shoulder. She had a past history of rotator cuff repair of the repair looks intact on the MRI and the patient has some osteoarthritis of the shoulder again I reiterated that most likely the reliable operation would be reverse total shoulder arthroplasty but the patient is trying to avoid an operation. They would like another injection to try that see how the works last 1 was 2 months ago and patient over 70 and with past history of rotator cuff repair I would definitely recommend to spread these out over 3 months so therefore the patient will follow-up in 4 to 6 weeks time to reassess and consider repeat injection. (2) Tendinosis of right shoulder: Status: Acute 07/11/23 1105 Date Az Ferguson Signature: Date (if applicable) CC: Normal [facility] PT D/C Summary (1)on 024 PT D/C Summary (1) [facility] [address] [place] [address] [address] [place] [address] / REHABILITATION SERVICES DISCHARGE SUMMARY MR#: [id number] Acct: [id number] Name: TERENCE VALDIVIA Rep #: [id number] : 1950 72 From: Jose Oro PT, Cert. T, [facility] Referring Dr.: Dr. Lonny Ch MD Status: REG RCR Insurance: MEDICARE PART A B [facility] [id number] [place] [address] Discharge Summary D/C summary: It has been my pleasure to treat TERENCE VALDIVIA referred by Dr. Lonny Ch MD, with the diagnosis of SPONDYLOSIS MYELOPATHY OR RADICULIPATHY ,LUMABR ,SPONDYLOSIS THORACIC for a total of 9 visit(s). Discharge Date: 06/29/23 Please see the following information for a summary of their discharge status. Subjective Subjective: Doing good no pain Pain Bilateral Back: Pain Intensity (Out of 10): 0 Overall Improvement % Improvement: 100 Objective Objective/Function: Patient to benefit from skilled PT to improve function with waling standing for ADLS goals where addressed and progressing and continues to benefit from PT intervention* POSTURE: mild thoracic kyphosis ,hip/knees flexed GAIT: reciprocal pattern mild forward posture PALPATION: unremarkable SYMMETRIES: align FLEXIBILITY: hamstrings mod tight LUMBAR ROM: flexion min loss ,extension mod/severe loss ,side glides /minmod loss MMT: ( peak force) quads left 39.1 ,right 37.9 , hamstrings left 371 ,right 35.2 , hip flexion 24.8 right ,left 21.8 ,elie 4/5 Goals Goal 1:: Patient to be I with HEP for back Goal Progress: Goal Met Goal 2:: Patient to demonstrate 50% improvement with less pain and improved function Goal Progress: Goal Met Goal 3:: Patient to improve lumbar ROM for function of recovery for ADLS and lifting laundry basket Goal Progress: Goal Met Goal 4:: Patient to improve back oswestry score by 5 points to improve QOL and function Goal Progress: Goal Met Goal 5:: Patient be able to stand > 15 MINS to to dishes and cleaning Goal Progress: Goal Met Plan Plan: D/C HEP D/C Information Discharge Comments: HEP d/c sentence: If there are questions or concerns regarding this patient's physical therapy, please feel free to call me at [phone]. Thank you for the referral of this patient. Sincerely, Jose Oro, PT, Cert MDT, OCS Balance/Gait/Functiona l tests Balance/Special Test Scores Oswestry Low Back Score: 32 Quick DASH Score: 0 Improvement % Improvement: 100 06/29/23 1159 CC: Dr. Lonny Ch MD; Dr. Will Lim MD JLA Signed Normal [facility] Orthopedic Visit Reporton Orthopedic Visit Report [facility] [address] [place] [address] OFFICE VISIT Date of Service: 06/21/23 MR#: [id number] Acct: [id number] Name: TERENCE VALDIVIA Rep #: [id number] : 1950 Provider: Dr. Marcellus Bailon MD Age/Sex: 72/F Location: [facility] Status: Signed Intake Vital Signs 02/08/23 13:13 Height 5 ft 6 in Intake Visit Reasons: CERVICAL SPINE Chief Complaint: 3 month follow-up Accompanied by: Is patient in pain?: Yes Pain scale (1-10): 4 Allergies bee venom protein (honey bee) [bee stings] Allergy (Verified 06/21/23 10:50) Swelling codeine Allergy (Verified 06/21/23 10:50) Nausea Tetanus Vaccines and Toxoid Allergy (Verified 06/21/23 10:50) Swelling Medications levothyroxine 137 mcg tablet 137 mcg PO DAILY 04/30/22 [History Confirmed 06/21/23] losartan 50 mg tablet 50 mg PO DAILY 04/30/22 [History Confirmed 06/21/23] multivitamin 1 tab PO DAILY 04/30/22 [History Confirmed 06/21/23] naproxen 500 mg tablet (Naprosyn) 500 mg PO BID PRN pain #14 tabs 04/30/22 [Rx Confirmed 06/21/23] solifenacin 10 mg tablet 10 mg PO DAILY 04/30/22 [History Confirmed 06/21/23] venlafaxine 75 mg capsule,extended release 24 hr 75 mg PO DAILY 04/30/22 [History Confirmed 06/21/23] vitamins A,C,A-ishy-cahnqt 2,148 mcg-113 mg-45 mg-17.4 mg tablet (PreserVision AREDS) 2 tab PO DAILY 04/30/22 [History Confirmed 06/21/23] semaglutide 0.25 mg or 0.5 mg (2 mg/3 mL) subcutaneous pen injector (Ozempic) 0.25 mg subcut QWEEK 02/01/23 [History Confirmed 06/21/23] gabapentin 100 mg capsule 100 mg PO TID 04/04/23 [History Confirmed 06/21/23] bupropion HCl 200 mg tablet,12 hr sustained-release 200 mg PO DAILY PRN 06/21/23 [History Confirmed 06/21/23] [facility]LY [facility] Medical History Primary osteoarthritis, right shoulder Right shoulder tendonitis Tendinosis of right shoulder Type 2 diabetes mellitus Surgical History History of knee surgery Family History Father CHF (congestive heart failure) Social History Smoking Status: Never smoker HPI CERVICAL SPINE Details: This documentation accurately reflects the service provided and the decisions made by me, Dr. Marcellus Bailon MD 06/21/23 1047. Part of today???s visit was documented by [employer], acting as scribe. TERENCE VALDIVIA is a 72 year old F here today for cervical spine 3 month follow-up. Patient states her cervical spine is bothering her today and rates her pain 4/10. She states she is still doing physical therapy but now it is mainly focusing on her lumbar spine rather than her cervical spine or shoulder. Patient states they will focus on her shoulder and cervical spine when she needs it. She states she did have a shoulder as well as cervical spine injection with Dr. Newman at pain management and they both did give her relief. She states she had the cervical spine injection in March and she is due soon with another injection. Patient states she takes Ibuprofen for pain when needed. Terence has had cervical epidural injection as well as a right shoulder injection over the last few months both of which have given her significant relief. She has also had good improvement with physical therapy. She has off-and-on right paraspinal neck pain symptoms goes in the lateral neck. She also has pain and stiffness around the right shoulder for which she is doing physical therapy. She is also seeing Dr. Moreno from right shoulder arthritis. She denies any radiating tingling numbness into the arm. She had a thorn penetrating injury over the dorsum of her first ray about a week ago which caused initial swelling and ecchymosis but now has significantly improved. She also notices pain with movements of her thumb that are longstanding. Following is her previous history: 03/22/23: TERENCE VALDIVIA is a 72 year old F here today for MRI review of the cervical spine. Denies any changes. Terence continues to have neck pain, right shoulder pain, right upper extremity radicular symptoms, right hand numbness. She also has balance issues and had a recent fall. She was seen by me about a month ago and was advised MRI cervical spine. Following is her history from that visit. 02/15/23: TERENCE VALDIVIA is a 72 year old F here today for neck pain. She has had neck pain for about 20 years that radiates into her right shoulder and into her right clavicle. She notes that her pain occasionally radiate down to the elbow. She does get numbness and tingling. She states that any reaching makes her pain worse. She states that she does notice a crunching in her neck. She take Tylenol for her pain. She has done PT in the past for her shoulder. Denies (more content not included)... Normal [facility] Absolute lymphocyte countOrd ered By: Will Lim on 05-26-2023 Lymphocytes Auto (Unsp spec) [#/Vol] 1.39 10*3/uL 0.83-4.51 [facility] Automated lymphocyte count a s percentage of total leukocytesOrdered By: Will Lim on 05-26-2023 Lymphocytes/100 WBC Auto (Unsp spec) 26.3 % 19-41 [facility] Basophil percentageOrdered B y: Will Lim on 05-26-2023 Basophils/100 WBC (Bld) 0.9 % 0-[address] [facility] Bilirubin [Mass/Vol] 0.70 mg/dL 0.20-1.00 [facility] Comment on above: For patients on eltr ombopag therapy, use of Dimension Colman TBIL is not recommended. Chloride [Moles/Vol] 109 mmol/L 98-107 [facility] Eosinophils/100 WBC (Bld) 1.7 % 0-5 [facility] Glucose [Mass/Vol] 122 mg/dL 74-[address] [facility] Comment on above: Fasting Glucose resu lt from 100 to 125 mg/dL suggests IMPAIRED HOMEOSTASIS per A.D.A. criteria. Hemoglobin (Bld) [Mass/Vol] 14.4 g/dL 12.0-15.0 [facility] Monocytes/100 WBC (Bld) 10.2 % 0-[address] [facility] Neutrophils (Bld) [#/Vol] 3.2 10*3/uL 2.0-7.7 [facility] Neutrophils/100 WBC (Bld) 60.7 % 47-70 [facility] Potassium [Moles/Vol] 4.3 mmol/L 3.5-5.1 [facility] Protein [Mass/Vol] 6.8 g/dL 6.4-8.[address] [facility] Sodium [Moles/Vol] 142 mmol/L 136-[address] [facility] WBC (Bld) [#/Vol] 5.3 10*3/uL 4.4-11.[address] [facility] Determination of erythrocyte mean corpuscular volume (MCV)Ordered By: Will Lim on 05-26-2023 MCV (RBC) [Entitic vol] 98.6 fL 81-[address] [facility] Erythrocyte distribution wid th ratioOrdered By: Will Lim on 05-26-2023 Erythrocyte distribution width (RBC) [Ratio] 12.4 % 11.6-14.6 [facility] Erythrocyte distribution wid th standard deviationOrdered By: Will Lim on 05-26-2023 Erythrocyte distribution width (RBC) [Entitic vol] 45.2 fL 35.1-43.9 [facility] Hematocrit Auto (Bld) [Volum e fraction]Ordered By: Will Lim on 05-26-2023 Hematocrit (Bld) [Volume fraction] 43.0 % 37-47 [facility] Immature granulocytes/100 WB C Auto (Bld)Ordered By: Will Lim on 05-26-2023 Immature granulocytes/100 WBC (Bld) 0.200 % 0.0-0.9 [facility] Comment on above: IG% - Immature Granu locytes (promyelocytes, myelocytes and metamyelocytes) > 1% indicates that a LEFT SHIFT is Present. Laboratory - Chemistry and C hemistry - challengeOrdered By: Will Lim on 05-26-2023 Albumin/Globulin [Mass ratio] 1.1 {ratio} 0.9-2.4 [facility] ALP [Catalytic activity/Vol] 112 U/L 45-117 [facility] ALT [Catalytic activity/Vol] 64 U/L 13-56 [facility] CO2 [Moles/Vol] 29.0 mmol/L 21.0-32.0 [facility] Globulin (S) [Mass/Vol] 3.2 g/dL 2.2-4.2 [facility] Urea nitrogen/Creatinine [Mass ratio] 10.5 mg/mg 10-20 [facility] Laboratory - Hematology and Cell countsOrdered By: Will Lim 05-26-2023 MCH (RBC) [Entitic mass] 33.0 pg 27.0-32.0 [facility] MCHC (RBC) [Mass/Vol] 33.5 g/dL 32-36 [facility] Nucleated RBC/100 WBC (Bld) [Ratio] 0 % 0-5 [facility] Platelet mean volume (Bld) [Entitic vol] 9.3 fL 6.2-12.0 [facility] Platelets (Bld) [#/Vol] 229 10*3/uL 150-450 [facility] No Panel InformationOrdered By: Will Lim on 05-26-2023 Estimated GFR (MDRD) Amer 83 mL/min >60 [facility] Comment on above: GFR Calc Estimated GFR (MDRD) Non-Af Amer 69 mL/min >60 [facility] Comment on above: Non- GFR Calc Vitamin D 25-Hydroxy 30.7 ng/mL [facility] Comment on above: Vitamin D 25(OH) Sta tus Range Deficiency <20 ng/mL (50nmol/L) Insufficiency 20 - 30 ng/mL (50 - 75 nmol/L) Sufficiency 30 - 100 ng/mL (75 - 250 nmol/L) Toxicity >100 ng/mL (>250 nmol/L) RBC Auto (Bld) [#/Vol]Ordere d By: Will Lim on 05-26-2023 RBC (Bld) [#/Vol] 4.36 10*6/uL 4.2-5.4 [facility] Serum or plasma calcium olive urement (mass/volume)Ordered By: Will Lim on 05-26-2023 Calcium [Mass/Vol] 8.9 mg/dL 8.5-10.[address] [facility] Serum or plasma creatinine m easurement (mass/volume)Ordered By: Will Lim on 05-26-2023 Creatinine [Mass/Vol] 0.86 mg/dL 0.55-1.02 [facility] Comment on above: The validity of the calculated GFR & GFRAA in patients over 70 years has not been determined. Clinical correlation is essential. Serum or plasma thyroid stim ulating hormone (TSH) measurement (units/volume)Ordered By: Will Lim on 05-26-2023 TSH Qn 1.36 uIU/mL 0.358-3.74 [facility] Serum or plasma urea nitroge n measurement (mass/volume)Ordered By: Will Lim on 05-26-2023 Urea nitrogen [Mass/Vol] 9 mg/dL 7-18 [facility] Thin prep Papanicolaou smear with manual screeningOrdered By: Will Lim on 05-26-2023 Thin prep Papanicolaou smear with manual screening 3.6 g/dL 3.2-5.0 [facility] Thin prep Papanicolaou smear with manual screening 34 U/L 15-37 [facility] Thin prep Papanicolaou smear with manual screening 4 5-15 [facility] Laboratory - Microbiology an d Antimicrobial susceptibilityOrdered By: Will Lim on 05-10-2023 SARS-CoV-2 (COVID-19) RNA TERESA+probe Ql (Unsp spec) [facility] No Panel InformationOrdered By: Will Lim on 01-13-2023 Thyroid Stimulating Hormone (TSH) 0.25 uIU/mL 0.358-3.74 [facility] Absolute lymphocyte countOrd ered By: Will Lim on 11-22-2022 Lymphocytes Auto (Unsp spec) [#/Vol] 1.68 10*3/uL 0.83-4.51 [facility] Basophil percentageOrdered B y: Will Lim on 11-22-2022 Basophils/100 WBC (Bld) 0.8 % 0-1 [facility] Bilirubin [Mass/Vol] 0.60 mg/dL 0.20-1.00 [facility] Comment on above: For patients on eltr ombopag therapy, use of Dimension Colman TBIL is not recommended. Chloride [Moles/Vol] 107 mmol/L 98-107 [facility] Eosinophils/100 WBC (Bld) 1.2 % 0-5 [facility] Glucose [Mass/Vol] 114 mg/dL 74-[address] [facility] Comment on above: Fasting Glucose resu lt from 100 to 125 mg/dL suggests IMPAIRED HOMEOSTASIS per A.D.A. criteria. Neutrophils (Bld) [#/Vol] 3.6 10*3/uL 2.0-7.7 [facility] Neutrophils/100 WBC (Bld) 60.9 % 47-70 [facility] Potassium [Moles/Vol] 3.9 mmol/L 3.5-5.1 [facility] Protein [Mass/Vol] 7.1 g/dL 6.4-8.[address] [facility] Sodium [Moles/Vol] 141 mmol/L 136-[address] [facility] WBC (Bld) [#/Vol] 6.0 10*3/uL 4.4-11.[address] [facility] Blood erythrocytes count (nu mber/volume)Ordered By: Will Lim on 11-22-2022 RBC (Bld) [#/Vol] 4.42 10*6/uL 4.2-5.4 [facility] Blood hemoglobin measurement (mass/volume)Ordered By: Will Lim on 11-22-2022 Hemoglobin (Bld) [Mass/Vol] 14.5 g/dL 12.0-15.0 [facility] Blood lymphocytes/100 leukoc ytesOrdered By: Will Lim on 11-22-2022 Lymphocytes/100 WBC (Bld) 28.2 % 19-41 [facility] Blood monocytes/100 leukocyt esOrdered By: Will Lim on 11-22-2022 Monocytes/100 WBC (Bld) 8.7 % 0-[address] [facility] Blood platelet mean volumeOr dered By: Will Lim on 11-22-2022 Platelet mean volume (Bld) [Entitic vol] 9.3 fL 6.2-12.0 [facility] Determination of erythrocyte mean corpuscular volume (MCV)Ordered By: Will Lim on 11-22-2022 MCV (RBC) [Entitic vol] 96.6 fL 81-[address] [facility] Hematocrit Auto (Bld) [Volum e fraction]Ordered By: Will Lim on 11-22-2022 Hematocrit (Bld) [Volume fraction] 42.7 % 37-47 [facility] Laboratory - Chemistry and C hemistry - challengeOrdered By: Will iLm on 11-22-2022 ALP [Catalytic activity/Vol] 129 U/L 45-117 [facility] ALT [Catalytic activity/Vol] 53 U/L 13-56 [facility] CO2 [Moles/Vol] 29.0 mmol/L 21.0-32.0 [facility] Globulin (S) [Mass/Vol] 3.3 g/dL 2.2-4.[address] [facility] Urea nitrogen/Creatinine [Mass ratio] 15.5 mg/mg 10-20 [facility] - Hematology and Cell countsOrdered By: Will Lim on 11-22-2022 Erythrocyte distribution width (RBC) [Entitic vol] 43.1 fL 35.1-43.9 [facility] Erythrocyte distribution width (RBC) [Ratio] 12.0 % 11.6-14.6 [facility] Immature granulocytes/100 WBC (Bld) 0.200 % 0.0-0.9 [facility] Comment on above: IG% - Immature Granu locytes (promyelocytes, myelocytes and metamyelocytes) > 1% indicates that a LEFT SHIFT is Present. MCH (RBC) [Entitic mass] 32.8 pg 27.0-32.0 [facility] Nucleated RBC/100 WBC (Bld) [Ratio] 0 % 0-5 [facility] MCHC Auto (RBC) [Mass/Vol]Or dered By: Will Lim on 11-22-2022 MCHC (RBC) [Mass/Vol] 34.0 g/dL 32-36 [facility] No Panel InformationOrdered By: Will Lim on 11-22-2022 Estimated GFR (MDRD) Amer 86 mL/min >60 [facility] Comment on above: GFR Calc Estimated GFR (MDRD) Non-Af Amer 71 mL/min >60 [facility] Comment on above: Non- GFR Calc Thyroid Stimulating Hormone (TSH) 0.08 uIU/mL 0.358-3.74 [facility] Vitamin D 25-Hydroxy 39.3 ng/mL [facility] Comment on above: Vitamin D 25(OH) Sta tus Range Deficiency <20 ng/mL (50nmol/L) Insufficiency 20 - 30 ng/mL (50 - 75 nmol/L) Sufficiency 30 - 100 ng/mL (75 - 250 nmol/L) Toxicity >100 ng/mL (>250 nmol/L) Platelets bldOrdered By: Will Lim on 11-22-2022 Platelets (Bld) [#/Vol] 265 10*3/uL 150-450 [facility] Serum or plasma albumin olive urement (mass/volume)Ordered By: Will Lim on 11-22-2022 Albumin [Mass/Vol] 3.8 g/dL 3.2-5.[address] [facility] Serum or plasma albumin/glob ulin mass ratioOrdered By: Will Lim on 11-22-2022 Albumin/Globulin [Mass ratio] 1.2 {ratio} 0.9-2.4 [facility] Serum or plasma calcium olive urement (mass/volume)Ordered By: Will Lim on 11-22-2022 Calcium [Mass/Vol] 8.9 mg/dL 8.5-10.[address] [facility] Serum or plasma creatinine m easurement (mass/volume)Ordered By: Will Lim on 11-22-2022 Creatinine [Mass/Vol] 0.84 mg/dL 0.55-1.02 [facility] Comment on above: The validity of the calculated GFR & GFRAA in patients over 70 years has not been determined. Clinical correlation is essential. Serum or plasma urea nitroge n measurement (mass/volume)Ordered By: Will Lim on 11-22-2022 Urea nitrogen [Mass/Vol] 13 mg/dL 7-18 [facility] Thin prep Papanicolaou smear with manual screeningOrdered By: Will Lim on 11-22-2022 Thin prep Papanicolaou smear with manual screening 27 U/L 15-37 [facility] Thin prep Papanicolaou smear with manual screening 5 5-15 [facility] Absolute lymphocyte countOrd ered By: Will Lim on 08-24-2022 Lymphocytes Auto (Unsp spec) [#/Vol] 2.12 10*3/uL 0.83-4.51 [facility] Basophil percentageOrdered B y: Will Lim on 08-24-2022 Basophils/100 WBC (Bld) 0.5 % 0-[address] [facility] Bilirubin [Mass/Vol] 0.40 mg/dL 0.20-1.00 [facility] Comment on above: For patients on eltr ombopag therapy, use of Dimension Colman TBIL is not recommended. Chloride [Moles/Vol] 104 mmol/L 98-107 [facility] Eosinophils/100 WBC (Bld) 1.2 % 0-5 [facility] Glucose [Mass/Vol] 197 mg/dL 74-[address] [facility] Comment on above: Fasting Glucose resu lt greater than or equal to 126 mg/dL suggests DIABETES MELLITUS per A.D.A. criteria. Neutrophils (Bld) [#/Vol] 4.5 10*3/uL 2.0-7.7 [facility] Neutrophils/100 WBC (Bld) 60.8 % 47-70 [facility] Potassium [Moles/Vol] 4.0 mmol/L 3.5-5.1 [facility] Protein [Mass/Vol] 7.4 g/dL 6.4-8.[address] [facility] Sodium [Moles/Vol] 138 mmol/L 136-[address] [facility] WBC (Bld) [#/Vol] 7.4 10*3/uL 4.4-11.[address] [facility] Blood erythrocytes count (nu mber/volume)Ordered By: Will Lim on 08-24-2022 RBC (Bld) [#/Vol] 4.64 10*6/uL 4.2-5.4 [facility] Blood hemoglobin measurement (mass/volume)Ordered By: Will Lim on 08-24-2022 Hemoglobin (Bld) [Mass/Vol] 15.7 g/dL 12.0-15.0 [facility] Blood lymphocytes/100 leukoc ytesOrdered By: Will Lim on 08-24-2022 Lymphocytes/100 WBC (Bld) 28.5 % 19-41 [facility] Blood monocytes/100 leukocyt esOrdered By: Will Lim on 08-24-2022 Monocytes/100 WBC (Bld) 8.9 % 0-[address] [facility] Blood platelet mean volumeOr dered By: Will Lim on 08-24-2022 Platelet mean volume (Bld) [Entitic vol] 9.0 fL 6.2-12.0 [facility] Determination of erythrocyte mean corpuscular volume (MCV)Ordered By: Will Lim on 08-24-2022 MCV (RBC) [Entitic vol] 94.8 fL 81-[address] [facility] Hematocrit Auto (Bld) [Volum e fraction]Ordered By: Will Lim on 08-24-2022 Hematocrit (Bld) [Volume fraction] 44.0 % 37-47 [facility] - Chemistry and C hemistry - challengeOrdered By: Will Lim on 08-24-2022 ALP [Catalytic activity/Vol] 145 U/L 45-117 [facility] ALT [Catalytic activity/Vol] 54 U/L 13-56 [facility] CO2 [Moles/Vol] 28.0 mmol/L 21.0-32.0 [facility] Globulin (S) [Mass/Vol] 3.6 g/dL 2.2-4.[address] [facility] Urea nitrogen/Creatinine [Mass ratio] 17.0 mg/mg 10-20 [facility] - Hematology and Cell countsOrdered By: Will Lim on 08-24-2022 Erythrocyte distribution width (RBC) [Entitic vol] 41.8 fL 35.1-43.9 [facility] Erythrocyte distribution width (RBC) [Ratio] 12.1 % 11.6-14.6 [facility] Immature granulocytes/100 WBC (Bld) 0.100 % 0.0-0.9 [facility] Comment on above: IG% - Immature Granu locytes (promyelocytes, myelocytes and metamyelocytes) > 1% indicates that a LEFT SHIFT is Present. MCH (RBC) [Entitic mass] 33.8 pg 27.0-32.0 [facility] Nucleated RBC/100 WBC (Bld) [Ratio] 0 % 0-5 [facility] MCHC Auto (RBC) [Mass/Vol]Or dered By: Will Lim on 08-24-2022 MCHC (RBC) [Mass/Vol] 35.7 g/dL 32-36 [facility] No Panel InformationOrdered By: Will Lim on 08-24-2022 Estimated GFR (MDRD) Amer 75 mL/min >60 [facility] Comment on above: GFR Calc Estimated GFR (MDRD) Non-Af Amer 62 mL/min >60 [facility] Comment on above: Non- GFR Calc Thyroid Stimulating Hormone (TSH) 0.43 uIU/mL 0.358-3.74 [facility] Vitamin D 25-Hydroxy 35.1 ng/mL [facility] Comment on above: Vitamin D 25(OH) Sta tus Range Deficiency <20 ng/mL (50nmol/L) Insufficiency 20 - 30 ng/mL (50 - 75 nmol/L) Sufficiency 30 - 100 ng/mL (75 - 250 nmol/L) Toxicity >100 ng/mL (>250 nmol/L) Platelets bldOrdered By: Will Lim on 08-24-2022 Platelets (Bld) [#/Vol] 253 10*3/uL 150-450 [facility] Serum or plasma albumin olive urement (mass/volume)Ordered By: Will Lim on 08-24-2022 Albumin [Mass/Vol] 3.8 g/dL 3.2-5.[address] [facility] Serum or plasma albumin/glob ulin mass ratioOrdered By: Will Lim on 08-24-2022 Albumin/Globulin [Mass ratio] 1.1 {ratio} 0.9-2.4 [facility] Serum or plasma calcium olive urement (mass/volume)Ordered By: Will Lim on 08-24-2022 Calcium [Mass/Vol] 9.5 mg/dL 8.5-10.[address] [facility] Serum or plasma creatinine m easurement (mass/volume)Ordered By: Will Lim on 08-24-2022 Creatinine [Mass/Vol] 0.94 mg/dL 0.55-1.02 [facility] Comment on above: The validity of the calculated GFR & GFRAA in patients over 70 years has not been determined. Clinical correlation is essential. Serum or plasma urea nitroge n measurement (mass/volume)Ordered By: Will Lim on 08-24-2022 Urea nitrogen [Mass/Vol] 16 mg/dL 7-18 [facility] Thin prep Papanicolaou smear with manual screeningOrdered By: Will Lim on 08-24-2022 Thin prep Papanicolaou smear with manual screening 28 U/L 15-37 [facility] Thin prep Papanicolaou smear with manual screening 6 5-15 [facility] Absolute lymphocyte countOrd ered By: Dr. Lim on 05-24-2022 Lymphocytes Auto (Unsp spec) [#/Vol] 2.12 10*3/uL 0.83-4.51 [facility] Basophil percentageOrdered B y: Dr. Lim on 05-24-2022 Basophils/100 WBC (Bld) 1.1 % 0-1 [facility] Bilirubin [Mass/Vol] 0.80 mg/dL 0.20-1.00 [facility] Comment on above: For patients on eltr ombopag therapy, use of Dimension Colman TBIL is not recommended. Chloride [Moles/Vol] 106 mmol/L 98-107 [facility] Eosinophils/100 WBC (Bld) 1.4 % 0-5 [facility] Glucose [Mass/Vol] 139 mg/dL 74-[address] [facility] Comment on above: Fasting Glucose resu lt greater than or equal to 126 mg/dL suggests DIABETES MELLITUS per A.D.A. criteria. Neutrophils (Bld) [#/Vol] 3.5 10*3/uL 2.0-7.7 [facility] Neutrophils/100 WBC (Bld) 55.1 % 47-70 [facility] Potassium [Moles/Vol] 4.1 mmol/L 3.5-5.1 [facility] Protein [Mass/Vol] 7.3 g/dL 6.4-8.[address] [facility] Sodium [Moles/Vol] 139 mmol/L 136-[address] [facility] WBC (Bld) [#/Vol] 6.4 10*3/uL 4.4-11.[address] [facility] Blood erythrocytes count (nu mber/volume)Ordered By: Dr. Lim on 05-24-2022 RBC (Bld) [#/Vol] 4.63 10*6/uL 4.2-5.4 [facility] Blood hemoglobin measurement (mass/volume)Ordered By: Dr. Lim on 05-24-2022 Hemoglobin (Bld) [Mass/Vol] 15.4 g/dL 12.0-15.0 [facility] Blood lymphocytes/100 leukoc ytesOrdered By: Dr. Lim on 05-24-2022 Lymphocytes/100 WBC (Bld) 33.3 % 19-41 [facility] Blood monocytes/100 leukocyt esOrdered By: Dr. Lim on 05-24-2022 Monocytes/100 WBC (Bld) 8.9 % 0-[address] [facility] Blood platelet mean volumeOr dered By: Dr. Lim on 05-24-2022 Platelet mean volume (Bld) [Entitic vol] 8.9 fL 6.2-12.0 [facility] Determination of erythrocyte mean corpuscular volume (MCV)Ordered By: Dr. Lim on 05-24-2022 MCV (RBC) [Entitic vol] 96.5 fL 81-[address] [facility] Hematocrit Auto (Bld) [Volum e fraction]Ordered By: Dr. Lim on 05-24-2022 Hematocrit (Bld) [Volume fraction] 44.7 % 37-47 [facility] - Chemistry and C hemistry - challengeOrdered By: Dr. Lim on 05-24-2022 ALP [Catalytic activity/Vol] 134 U/L 45-117 [facility] ALT [Catalytic activity/Vol] 54 U/L 13-56 [facility] CO2 [Moles/Vol] 30.0 mmol/L 21.0-32.0 [facility] Globulin (S) [Mass/Vol] 3.3 g/dL 2.2-4.[address] [facility] Urea nitrogen/Creatinine [Mass ratio] 12.0 mg/mg 10-20 [facility] - Hematology and Cell countsOrdered By: Dr. Lim on 05-24-2022 Erythrocyte distribution width (RBC) [Entitic vol] 42.5 fL 35.1-43.9 [facility] Erythrocyte distribution width (RBC) [Ratio] 12.0 % 11.6-14.6 [facility] Immature granulocytes/100 WBC (Bld) 0.200 % 0.0-0.9 [facility] Comment on above: IG% - Immature Granu locytes (promyelocytes, myelocytes and metamyelocytes) > 1% indicates that a LEFT SHIFT is Present. MCH (RBC) [Entitic mass] 33.3 pg 27.0-32.0 [facility] Nucleated RBC/100 WBC (Bld) [Ratio] 0 % 0-5 [facility] MCHC Auto (RBC) [Mass/Vol]Or dered By: Dr. Lim on 05-24-2022 MCHC (RBC) [Mass/Vol] 34.5 g/dL 32-36 [facility] No Panel InformationOrdered By: Dr. Lim on 05-24-2022 Estimated GFR (MDRD) Amer 70 mL/min >60 [facility] Comment on above: GFR Calc Estimated GFR (MDRD) Non-Af Amer 58 mL/min >60 [facility] Comment on above: Non- GFR Calc Thyroid Stimulating Hormone (TSH) 0.58 uIU/mL 0.358-3.74 [facility] Vitamin D 25-Hydroxy 35.0 ng/mL [facility] Comment on above: Vitamin D 25(OH) Sta tus Range Deficiency <20 ng/mL (50nmol/L) Insufficiency 20 - 30 ng/mL (50 - 75 nmol/L) Sufficiency 30 - 100 ng/mL (75 - 250 nmol/L) Toxicity >100 ng/mL (>250 nmol/L) Platelets bldOrdered By: Dr. Lim on 05-24-2022 Platelets (Bld) [#/Vol] 289 10*3/uL 150-450 [facility] Serum or plasma albumin olive urement (mass/volume)Ordered By: Dr. Lim on 05-24-2022 Albumin [Mass/Vol] 4.0 g/dL 3.2-5.[address] [facility] Serum or plasma albumin/glob ulin mass ratioOrdered By: Dr. Lim on 05-24-2022 Albumin/Globulin [Mass ratio] 1.2 {ratio} 0.9-2.4 [facility] Serum or plasma calcium olive urement (mass/volume)Ordered By: Dr. Lim on 05-24-2022 Calcium [Mass/Vol] 9.3 mg/dL 8.5-10.[address] [facility] Serum or plasma creatinine m easurement (mass/volume)Ordered By: Dr. Lmi on 05-24-2022 Creatinine [Mass/Vol] 1.00 mg/dL 0.55-1.02 [facility] Comment on above: The validity of the calculated GFR & GFRAA in patients over 70 years has not been determined. Clinical correlation is essential. Serum or plasma urea nitroge n measurement (mass/volume)Ordered By: Dr. Lim on 05-24-2022 Urea nitrogen [Mass/Vol] 12 mg/dL 7-18 [facility] Thin prep Papanicolaou smear with manual screeningOrdered By: Dr. Lim on 05-24-2022 Thin prep Papanicolaou smear with manual screening 30 U/L 15-37 [facility] Thin prep Papanicolaou smear with manual screening 3 5-15 [facility] No Panel InformationOrdered By: Dr. Lim on 04-14-2022 Thyroid Stimulating Hormone (TSH) 5.96 uIU/mL 0.358-3.74 [facility] Absolute lymphocyte countOrd ered By: Dr. Lim on 02-17-2022 Lymphocytes Auto (Unsp spec) [#/Vol] 1.44 10*3/uL 0.83-4.51 [facility] Basophil percentageOrdered B y: Dr. Lim on 02-17-2022 Basophils/100 WBC (Bld) 0.6 % 0-[address] [facility] Bilirubin [Mass/Vol] 0.50 mg/dL 0.20-1.00 [facility] Comment on above: For patients on eltr ombopag therapy, use of Dimension Colman TBIL is not recommended. Chloride [Moles/Vol] 105 mmol/L 98-107 [facility] Eosinophils/100 WBC (Bld) 1.9 % 0-5 [facility] Glucose [Mass/Vol] 172 mg/dL 74-[address] [facility] Comment on above: Fasting Glucose resu lt greater than or equal to 126 mg/dL suggests DIABETES MELLITUS per A.D.A. criteria. Neutrophils (Bld) [#/Vol] 2.7 10*3/uL 2.0-7.7 [facility] Neutrophils/100 WBC (Bld) 57.6 % 47-70 [facility] Potassium [Moles/Vol] 4.0 mmol/L 3.5-5.1 [facility] Protein [Mass/Vol] 6.6 g/dL 6.4-8.[address] [facility] Sodium [Moles/Vol] 140 mmol/L 136-[address] [facility] WBC (Bld) [#/Vol] 4.7 10*3/uL 4.4-11.[address] [facility] Blood erythrocytes count (nu mber/volume)Ordered By: Dr. Lim on 02-17-2022 RBC (Bld) [#/Vol] 4.04 10*6/uL 4.2-5.4 [facility] Blood hemoglobin measurement (mass/volume)Ordered By: Dr. Lim on 02-17-2022 Hemoglobin (Bld) [Mass/Vol] 13.4 g/dL 12.0-15.0 [facility] Blood lymphocytes/100 leukoc ytesOrdered By: Dr. Lim on 02-17-2022 Lymphocytes/100 WBC (Bld) 30.4 % 19-41 [facility] Blood monocytes/100 leukocyt esOrdered By: Dr. Lim on 02-17-2022 Monocytes/100 WBC (Bld) 9.3 % 0-[address] [facility] Blood platelet mean volumeOr dered By: Dr. Lim on 02-17-2022 Platelet mean volume (Bld) [Entitic vol] 9.7 fL 6.2-12.0 [facility] Determination of erythrocyte mean corpuscular volume (MCV)Ordered By: Dr. Lim on 02-17-2022 MCV (RBC) [Entitic vol] 98.3 fL 81-[address] [facility] Hematocrit Auto (Bld) [Volum e fraction]Ordered By: Dr. Lim on 02-17-2022 Hematocrit (Bld) [Volume fraction] 39.7 % 37-47 [facility] Laboratory - Chemistry and C hemistry - challengeOrdered By: Dr. Lim on 02-17-2022 ALP [Catalytic activity/Vol] 115 U/L 45-117 [facility] ALT [Catalytic activity/Vol] 31 U/L 13-56 [facility] CO2 [Moles/Vol] 29.0 mmol/L 21.0-32.0 [facility] Globulin (S) [Mass/Vol] 3.1 g/dL 2.2-4.[address] [facility] Urea nitrogen/Creatinine [Mass ratio] 15.5 mg/mg 10-20 [facility] - Hematology and Cell countsOrdered By: Dr. Lim on 02-17-2022 Erythrocyte distribution width (RBC) [Entitic vol] 45.8 fL 35.1-43.9 [facility] Erythrocyte distribution width (RBC) [Ratio] 12.6 % 11.6-14.6 [facility] Immature granulocytes/100 WBC (Bld) 0.200 % 0.0-0.9 [facility] Comment on above: IG% - Immature Granu locytes (promyelocytes, myelocytes and metamyelocytes) > 1% indicates that a LEFT SHIFT is Present. MCH (RBC) [Entitic mass] 33.2 pg 27.0-32.0 [facility] Nucleated RBC/100 WBC (Bld) [Ratio] 0 % 0-5 [facility] MCHC Auto (RBC) [Mass/Vol]Or dered By: Dr. Lim on 02-17-2022 MCHC (RBC) [Mass/Vol] 33.8 g/dL 32-36 [facility] No Panel InformationOrdered By: Dr. Lim on 02-17-2022 Estimated GFR (MDRD) Amer 86 mL/min >60 [facility] Comment on above: GFR Calc Estimated GFR (MDRD) Non-Af Amer 71 mL/min >60 [facility] Comment on above: Non- GFR Calc Thyroid Stimulating Hormone (TSH) 6.97 uIU/mL 0.358-3.74 [facility] Vitamin D 25-Hydroxy 46.1 ng/mL [facility] Comment on above: Vitamin D 25(OH) Sta tus Range Deficiency <20 ng/mL (50nmol/L) Insufficiency 20 - 30 ng/mL (50 - 75 nmol/L) Sufficiency 30 - 100 ng/mL (75 - 250 nmol/L) Toxicity >100 ng/mL (>250 nmol/L) Platelets bldOrdered By: Dr. Lim on 02-17-2022 Platelets (Bld) [#/Vol] 231 10*3/uL 150-450 [facility] Serum or plasma albumin olive urement (mass/volume)Ordered By: Dr. Lim on 02-17-2022 Albumin [Mass/Vol] 3.5 g/dL 3.2-5.[address] [facility] Serum or plasma albumin/glob ulin mass ratioOrdered By: Dr. Lim on 02-17-2022 Albumin/Globulin [Mass ratio] 1.1 {ratio} 0.9-2.4 [facility] Serum or plasma calcium olive urement (mass/volume)Ordered By: Dr. Lim on 02-17-2022 Calcium [Mass/Vol] 8.7 mg/dL 8.5-10.[address] [facility] Serum or plasma creatinine m easurement (mass/volume)Ordered By: Dr. Lim on 02-17-2022 Creatinine [Mass/Vol] 0.84 mg/dL 0.55-1.02 [facility] Comment on above: The validity of the calculated GFR & GFRAA in patients over 70 years has not been determined. Clinical correlation is essential. Serum or plasma urea nitroge n measurement (mass/volume)Ordered By: Dr. Lim on 02-17-2022 Urea nitrogen [Mass/Vol] 13 mg/dL 7-18 [facility] Thin prep Papanicolaou smear with manual screeningOrdered By: Dr. Lim on 02-17-2022 Thin prep Papanicolaou smear with manual screening 21 U/L 15 [facility] Thin prep Papanicolaou smear with manual screening 6 5- [facility] Absolute lymphocyte counton 11-17-2021 Lymphocytes Auto (Unsp spec) [#/Vol] 2.11 10*3/uL 0.83-4.51 [facility] Work Phone: Basophil percentageon 2021 Basophils/100 WBC (Bld) 0.6 % 0-1 [facility] Work Phone: Bilirubin [Mass/Vol] 0.50 mg/dL 0.20-1.00 [facility] Work Phone: Comment on above: For patients on eltr ombopag therapy, use of Dimension Colman TBIL is not recommended. Chloride [Moles/Vol] 105 mmol/L 98-107 [facility] Work Phone: Eosinophils/100 WBC (Bld) 1.3 % 0-5 [facility] Work Phone: Glucose [Mass/Vol] 107 mg/dL 74-[address] [facility] Work Phone: Comment on above: Fasting Glucose resu lt from 100 to 125 mg/dL suggests IMPAIRED HOMEOSTASIS per A.D.A. criteria. Neutrophils (Bld) [#/Vol] 4.9 10*3/uL 2.0-7.7 [facility] Work Phone: Neutrophils/100 WBC (Bld) 63.1 % 47-70 [facility] Work Phone: Potassium [Moles/Vol] 3.5 mmol/L 3.5-5.1 [facility] Work Phone: Protein [Mass/Vol] 7.1 g/dL 6.4-8.2 [facility]: Sodium [Moles/Vol] 142 mmol/L 136-[facility] Work Phone: WBC (Bld) [#/Vol] 7.8 10*3/uL 4.4-11.[address] [facility] Work Phone: Blood erythrocytes count (nu mber/volume)on 11-17-2021 RBC (Bld) [#/Vol] 4.44 10*6/uL 4.2-5.4 [facility]: Blood hemoglobin measurement (mass/volume)on 11-17-2021 Hemoglobin (Bld) [Mass/Vol] 15.3 g/dL 12.0-15.0 [facility] Work Phone: Blood lymphocytes/100 leukoc yteson 11-17-2021 Lymphocytes/100 WBC (Bld) 27.0 % 19-41 [facility] Work Phone: [phone] Blood monocytes/100 leukocyt eson 11-17-2021 Monocytes/100 WBC (Bld) 7.9 % 0-[address] [facility] Work Phone: Blood platelet mean volumeon 11-17-2021 Platelet mean volume (Bld) [Entitic vol] 8.9 fL 6.2-12.0 [facility] Work Phone: Determination of erythrocyte mean corpuscular volume (MCV)on 11-17-2021 MCV (RBC) [Entitic vol] 98.6 fL 81-[address] [facility] Work Phone: Hematocrit Auto (Bld) [Volum e fraction]on 11-17-2021 Hematocrit (Bld) [Volume fraction] 43.8 % 37-47 [facility] Work Phone: Laboratory - Chemistry and C hemistry - challengeon 11-17-2021 ALP [Catalytic activity/Vol] 111 U/L 45-117 [facility] Work Phone: ALT [Catalytic activity/Vol] 22 U/L 13-56 [facility] Work Phone: CO2 [Moles/Vol] 29.0 mmol/L 21.0-32.0 [facility] Work Phone: Globulin (S) [Mass/Vol] 3.3 g/dL 2.2-4.[address] [facility] Work Phone: Urea nitrogen/Creatinine [Mass ratio] 14.1 mg/mg 10-20 [facility] Work Phone: Laboratory - Hematology and Cell countson 11-17-2021 Erythrocyte distribution width (RBC) [Entitic vol] 44.5 fL 35.1-43.9 [facility] Work Phone: Erythrocyte distribution width (RBC) [Ratio] 12.2 % 11.6-14.6 [facility] Work Phone: Immature granulocytes/100 WBC (Bld) 0.100 % 0.0-0.9 [facility] Work Phone: Comment on above: IG% - Immature Granu locytes (promyelocytes, myelocytes and metamyelocytes) > 1% indicates that a LEFT SHIFT is Present. MCH (RBC) [Entitic mass] 34.5 pg 27.0-32.0 [facility] Work Phone: Nucleated RBC/100 WBC (Bld) [Ratio] 0 % 0-5 [facility] Work Phone: MCHC Auto (RBC) [Mass/Vol]on 11-17-2021 MCHC (RBC) [Mass/Vol] 34.9 g/dL 32-36 [facility] Work Phone: No Panel Informationon 11-17 Estimated GFR (MDRD) Amer 71 mL/min >60 [facility] Work Phone: Comment on above: GFR Calc Estimated GFR (MDRD) Non-Af Amer 59 mL/min >60 [facility] Work Phone: Comment on above: Non- GFR Calc Hepatitis C Antibody Non-Reactive Nonreactive [facility] Work Phone: Comment on above: Non Reactive: < 0.8 Equivocal: >/= 0.8 to < 1.0 Reactive: >/= 1.0The [facility] recommends that a reactive/equivocal HCV antibody result be followed up by the HCV Nucleic Acid Amplificationtest (329564) Thyroid Stimulating Hormone (TSH) 0.74 uIU/mL 0.358-3.74 [facility] Work Phone: Platelets bldon 11-17-2021 Platelets (Bld) [#/Vol] 247 10*3/uL 150-450 [facility] Work Phone: Serum or plasma albumin olive urement (mass/volume)on 11-17-2021 Albumin [Mass/Vol] 3.8 g/dL 3.2-5.[address] [facility] Work Phone: Serum or plasma albumin/glob ulin mass ratioon 11-17-2021 Albumin/Globulin [Mass ratio] 1.2 {ratio} 0.9-2.4 [facility] Work Phone: Serum or plasma calcium olive urement (mass/volume)on 11-17-2021 Calcium [Mass/Vol] 9.2 mg/dL 8.5-10.[address] [facility] Work Phone: Serum or plasma creatinine m easurement (mass/volume)on 11-17-2021 Creatinine [Mass/Vol] 0.99 mg/dL 0.55-1.02 [facility] Work Phone: Comment on above: The validity of the calculated GFR & GFRAA in patients over 70 years has not been determined. Clinical correlation is essential. Serum or plasma urea nitroge n measurement (mass/volume)on 11-17-2021 Urea nitrogen [Mass/Vol] 14 mg/dL 7-18 [facility] Work Phone: Thin prep Papanicolaou smear with manual screeningon 11-17-2021 Thin prep Papanicolaou smear with manual screening 20 U/L 15-37 [facility] Work Phone: Thin prep Papanicolaou smear with manual screening 8 5-15 [facility] Work Phone: Vital Signs Date Time Vital Sign Value Performing Clinician Faci lity 05-23-2024 14:23-0400 Body weight [address] LUPE GONZALEZ [facility] 04-27-2024 11:24-0500 Body temperature 97 [degF] Dr. Will Lim MD Work Phone: [facility] 04-27-2024 11:24-0500 Diastolic blood pressure 55 mm[Hg] Dr. Will Lim MD Work Phone: [facility] 04-27-2024 11:24-0500 Heart rate 76 /min Dr. Will Lim MD Work Phone: [facility] 04-27-2024 11:24-0500 Respiratory rate 14 /min Dr. Will Lim MD Work Phone: [facility] 04-27-2024 11:24-0500 SaO2% (BldA) [Mass fraction] 98 % Dr. Will Lim MD Work Phone: [facility] 04-27-2024 11:24-0500 Systolic blood pressure 126 mm[Hg] Dr. Will Lim MD Work Phone: [facility] 04-27-2024 09:06-0500 Body height 167.[address] Will Lim MD Work Phone: [facility] 04-27-2024 09:06-0500 Body mass index (BMI) [Ratio] 28.4 kg/m2 Dr. Will Lim MD Work Phone: [facility] 04-27-2024 09:06-0500 Body weight 79.[address] Will Lim MD Work Phone: [facility] 02-10-2024 10:14-0500 Body temperature 98.24 [degF] AGUSTINA WILBURN MD FACP [facility] 02-10-2024 10:14-0500 Diastolic Blood Pressure Non-Invasive 60 mm[Hg] AGUSTINA WILBURN MD FACP [facility] 02-10-2024 10:14-0500 Heart rate 95 /min AGUSTINA WILBURN MD FACP [facility] 02-10-2024 10:14-0500 Reason For Taking VItal Signs AGUSTINA WILBURN MD FACP [facility] 02-10-2024 10:14-0500 Respiratory rate 16 /min AGUSTINA WILBURN MD FACP [facility] 02-10-2024 10:14-0500 Systolic Blood Pressure Non-Invasive 125 mm[Hg] AGUSTINA WILBURN MD FACP [facility] 02-10-2024 06:45-0500 Body temperature 98.06 [degF] AGUSTINA WILBURN MD FACP [facility] 02-10-2024 06:45-0500 Diastolic Blood Pressure Non-Invasive 58 mm[Hg] AGUSTINA WILBURN MD FACP [facility] 02-10-2024 06:45-0500 Heart rate 69 /min AGUSTINA WILBURN MD FACP [facility] 02-10-2024 06:45-0500 Reason For Taking VItal Signs AGUSTINA WILBURN MD FACP [facility] 02-10-2024 06:45-0500 Respiratory rate 16 /min AGUSTINA WILBURN MD FACP [facility] 02-10-2024 06:45-0500 Systolic Blood Pressure Non-Invasive 108 mm[Hg] AGUSTINA WILBURN MD FACP [facility] 02-09-2024 19:41-0500 Body temperature 98.42 [degF] AGUSTINA WILBURN MD FACP [facility] 02-09-2024 19:41-0500 Diastolic Blood Pressure Non-Invasive 55 mm[Hg] AGUSTINA WILBURN MD FACP [facility] 02-09-2024 19:41-0500 Heart rate 65 /min AGUSTINA WILBURN MD FACP [facility] 02-09-2024 19:41-0500 Reason For Taking VItal Signs AGUSTINA WILBURN MD FACP [facility] 02-09-2024 19:41-0500 Respiratory rate 16 /min AGUSTINA WILBURN MD FACP [facility] 02-09-2024 19:41-0500 Systolic Blood Pressure Non-Invasive 121 mm[Hg] AGUSTINA WILBURN MD FACP [facility] 02-09-2024 07:22-0500 Heart rate 58 /min AGUSTINA WILBURN MD FACP [facility] 02-08-2024 19:25-0500 Heart rate 72 /min AGUSTINA WILBURN MD FACP [facility] 02-07-2024 19:43-0500 Heart rate 64 /min AGUSTINA WILBURN MD FACP [facility] 02-06-2024 19:51-0500 Heart rate 64 /min AGUSTINA WILBURN MD FACP [facility] 02-03-2024 17:38-0500 Body height 167.6 cm AGUSTINA WILBURN MD FAC [facility] 02-03-2024 17:38-0500 Body weight 80.8 kg AGUSTINA WILBURN MD FACP [facility] 02-03-2024 17:38-0500 Body weight 28.76 kg/m2 AGUSTINA WILBURN MD FAC [facility] 02-03-2024 09:56-0500 Body temperature 98.42 [degF] ROESMARIE TINEO MD [address] [place] [address] 02-03-2024 09:56-0500 Diastolic Blood Pressure Non-Invasive 61 mm[Hg] ROSEMARIE TINEO MD [address] 02-03-2024 09:56-0500 Heart rate 66 /min ROSEMARIE TINEO MD [address] 02-03-2024 09:56-0500 Reason For Taking VItal Signs ROSEMARIE TINEO MD [address] 02-03-2024 09:56-0500 Respiratory rate 18 /min ROSEMARIE TINEO MD [address] [place] [address] 02-03-2024 09:56-0500 Systolic Blood Pressure Non-Invasive 149 mm[Hg] ROSEMARIE TINEO MD [address] 02-03-2024 06:48-0500 Blood Pressure Cuff Size ROSEMARIE TINEO MD [address] 02-03-2024 06:48-0500 Blood Pressure Location ROSEMARIE TINEO MD [address] 02-03-2024 06:48-0500 Blood Pressure Method ROSEMARIE TINEO MD [address] [place] [address] 02-03-2024 06:48-0500 Body temperature 98.06 [degF] ROSEMARIE TINEO MD [address] [place] [address] 02-03-2024 06:48-0500 Diastolic Blood Pressure Non-Invasive 61 mm[Hg] ROSEMARIE TINEO MD [address] [place] [address] 02-03-2024 06:48-0500 Heart rate 55 /min ROSEMARIE TINEO MD [address] [place] [address] 02-03-2024 06:48-0500 Reason For Taking VItal Signs ROSEMARIE TINEO MD [address] [place] [address] 02-03-2024 06:48-0500 Respiratory rate 18 /min ROSEMARIE TINEO MD [address] [place] [address] 02-03-2024 06:48-0500 Systolic Blood Pressure Non-Invasive 110 mm[Hg] ROSEMARIE TINEO MD [address] [place] [address] 02-03-2024 04:17-0500 Body temperature 97.7 [degF] ROSEMARIE TINEO MD [address] [place] [address] 02-03-2024 04:17-0500 Diastolic Blood Pressure Non-Invasive 69 mm[Hg] ROSEMARIE TINEO MD [address] [place] [address] 02-03-2024 04:17-0500 Heart rate 57 /min ROSEMARIE TINEO MD [address] [place] [address] 02-03-2024 04:17-0500 Reason For Taking VItal Signs ROSEMARIE TINEO MD [address] [place] [address] 02-03-2024 04:17-0500 Respiratory rate 18 /min ROSEMARIE TINEO MD [address] [place] [address] 02-03-2024 04:17-0500 Systolic Blood Pressure Non-Invasive 127 mm[Hg] ROSEMARIE TINEO MD [address] [place] [address] 02-03-2024 00:44-0500 Blood Pressure Cuff Size ROSEMARIE TINEO MD [address] [place] [address] 02-03-2024 00:44-0500 Blood Pressure Location ROSEMARIE TINEO MD [address] [place] [address] 02-03-2024 00:44-0500 Blood Pressure Method ROSEMARIE TINEO MD [address] [place] [address] 02-01-2024 03:23-0500 Heart rate 86 /min ROSEMARIE TINEO MD [address] [place] [address] 01-31-2024 22:31-0500 Heart rate 64 /min ROSEMARIE TINEO MD [address] [place] [address] 01-31-2024 19:47-0500 Mean blood pressure 81 mm[Hg] ROSEMARIE TINEO MD [address] [place] [address] 01-31-2024 15:10-0500 Heart rate 62 /min ROSEMARIE TINEO MD [address] [place] [address] 01-31-2024 13:36-0500 Mean blood pressure 78 mm[Hg] ROSEMARIE TINEO MD [address] [place] [address] 01-31-2024 13:29-0500 Heart rate 61 /min ROSEMARIE TINEO MD [address] [place] [address] 01-31-2024 13:29-0500 Mean blood pressure 85 mm[Hg] ROSEMARIE TINEO MD [address] [place] [address] 01-31-2024 11:42-0500 Heart rate 65 /min ROSEMARIE TINEO MD [address] [place] [address] 01-31-2024 07:20-0500 Diastolic blood pressure 47 mm[Hg] ROSEMARIE TINEO MD [address] [place] [address] 01-31-2024 07:20-0500 Mean blood pressure 69 mm[Hg] ROSEMARIE TINEO MD [address] [place] [address] 01-31-2024 07:20-0500 Systolic blood pressure 124 mm[Hg] ROSEMARIE TINEO MD [address] [place] [address] 01-31-2024 05:54-0500 Diastolic blood pressure 56 mm[Hg] ROSEMARIE TINEO MD [address] [place] [address] 01-31-2024 05:54-0500 Mean blood pressure 77 mm[Hg] ROSEMARIE TINEO MD [address] [place] [address] 01-31-2024 05:54-0500 Systolic blood pressure 114 mm[Hg] ROSEMARIE TINEO MD [address] [place] [address] 01-31-2024 03:37-0500 Diastolic blood pressure 59 mm[Hg] ROSEMARIE TINEO MD [address] [place] [address] 01-31-2024 03:37-0500 Mean blood pressure 81 mm[Hg] ROSEMARIE TINEO MD [address] [place] [address] 01-31-2024 03:37-0500 Systolic blood pressure 133 mm[Hg] ROSEMARIE TINEO MD [address] [place] [address] 01-30-2024 15:30-0500 Body height 167.6 cm ROSEMARIE TINEO MD [address] [place] [address] 01-30-2024 15:30-0500 Body weight 81.2 kg ROSEMARIE TINEO MD [address] [place] [address] 01-30-2024 15:30-0500 Body weight 28.91 kg/m2 ROSEMARIE TINEO MD [address] [place] [address] 01-30-2024 14:45-0500 Respiratory Rate - Anes 0 br/min ROSEMARIE TINEO MD [address] 01-30-2024 14:40-0500 Respiratory Rate - Anes 0 br/min ROSEMARIE TINEO MD [address] 01-30-2024 14:25-0500 Respiratory Rate - Anes 0 br/min ROSEMARIE TINEO MD [address] 01-30-2024 13:50-0500 Body temperature 70.03 [degF] ROSEMARIE TINEO MD [address] 01-30-2024 13:45-0500 Body temperature 99.64 [degF] ROSEMARIE TINEO MD [address] 01-30-2024 13:40-0500 Body temperature 99.52 [degF] ROSEMARIE TINEO MD [address] 01-30-2024 11:23-0500 SaO2% (BldA) [Mass fraction] 99.3 % ROSEMARIE TINEO MD [facility] 01-30-2024 08:58-0500 SaO2% (BldA) [Mass fraction] 99.6 % ROSEMARIE TINEO MD [facility] 01-30-2024 02:37-0500 Heart rate 58 /min ROSEMARIE TINEO MD [facility] 01-25-2024 08:47-0500 Body temperature 97.1 [degF] Dr. Will Lim MD Work Phone: [facility] 01-25-2024 08:47-0500 Diastolic blood pressure 75 mm[Hg] Dr. Will Lim MD Work Phone: [facility] 01-25-2024 08:47-0500 Heart rate 79 /min Dr. Will Lim MD Work Phone: 5(244)168-415930 [place] [address] 01-25-2024 08:47-0500 Respiratory rate 17 /min Dr. Will Lim MD Work Phone: 2(592)687-856930 [place] [address] 01-25-2024 08:47-0500 SaO2% (BldA) [Mass fraction] 93 % Dr. Will Lim MD Work Phone: 4(414)080-736330 [place] [address] 01-25-2024 08:47-0500 Systolic blood pressure 159 mm[Hg] Dr. Will Lim MD Work Phone: 4(559)[phone] [place] [address] 01-25-2024 03:41-0500 Body mass index (BMI) [Ratio] 30.4 kg/m2 Dr. Will Lim MD Work Phone: 4(525)711-831530 [place] [address] 01-25-2024 03:41-0500 Body weight 85.[address] Will Lim MD Work Phone: 0(573)672-795730 [place] [address] 02-08-2023 13:13-0500 Body height 167.[address] Will Lim Work Phone: 3([phone] [place] [address] 02-08-2023 13:13-0500 Body mass index (BMI) [Ratio] 30.4 kg/m2 Dr. Will Lim Work Phone: 7(281)361-289430 [place] [address] 02-08-2023 13:13-0500 Body weight 85.[address] Will Lim Work Phone: 5(602)142-982230 [place] [address] 02-01-2023 13:18-0500 Heart rate 82 /min [facility] 02-01-2023 13:18-0500 Respiratory rate 16 /min [facility] 02-01-2023 12:14-0500 Body height 167.64 cm [facility] 02-01-2023 12:14-0500 Body mass index (BMI) [Ratio] 30.2 kg/m2 [facility] 02-01-2023 12:14-0500 Body temperature 97.2 [degF] [facility] 02-01-2023 12:14-0500 Body weight 85 kg [facility] 02-01-2023 12:14-0500 Diastolic blood pressure 77 mm[Hg] [facility] 02-01-2023 12:14-0500 SaO2% (BldA) [Mass fraction] 100 % [facility] 02-01-2023 12:14-0500 Systolic blood pressure 157 mm[Hg] [facility] 04-30-2022 11:50-0500 Diastolic blood pressure 80 mm[Hg] [facility] 04-30-2022 11:50-0500 Heart rate 69 /min [facility] 04-30-2022 11:50-0500 Respiratory rate 17 /min [facility] 04-30-2022 11:50-0500 SaO2% (BldA) [Mass fraction] 96 % [facility] 04-30-2022 11:50-0500 Systolic blood pressure 158 mm[Hg] [facility] 04-30-2022 11:10-0500 Body height 167.64 cm [facility] 04-30-2022 11:10-0500 Body mass index (BMI) [Ratio] 29.9 kg/m2 [facility] 04-30-2022 11:10-0500 Body temperature 97.5 [degF] [facility] 04-30-2022 11:10-0500 Body weight 84.05 kg [facility] Encounters Encounter Date Encounter Type Care Provider Facility Start: 08-15-2024 End: 08-15-[address] SAY ILM MD Facility:A Start: 08-15-2024 End: 08-15-[address] LUPE GONZALEZ MD [facility] [place] Start: 07-18-2024 End: 07-18-[address] SAY LIM MD Facility:[facility] Start: 07-18-2024 End: 07-18-[address] LUPE GONZALEZ MD [facility] [place] Start: 07-11-2024 ambulatory Will Lim Facility:[facility] Start: 07-06-2024 End: 07-06-2024 Subsequent hospital visit by physician [facility] Comment on above: Malignant neoplasm o f brain, unspecified Start: 07-06-2024 End: 07-06-2024 ambulatory [facility] Start: 06-20-2024 End: 06-20-[address] LUPE GONZALEZ MD Facility:A Start: 06-20-2024 End: 06-20-[address] LUPE GONZALEZ MD [facility] [place] Start: 05-29-2024 End: 05-29-[address] Will Lim MD Work Phone: [facility] Work Phone: Start: 05-29-2024 End: 05-29-[address] Will Lim MD -Laboratory Work Phone: Start: 05-29-2024 End: 05-29-2024 ambulatory Will Lim Facility:[facility] Start: 05-23-2024 End: 05-23-[address] LUPE GONZALEZ MD Facility:A Start: 05-23-2024 End: 05-23-[address] LUPE GONZALEZ MD [facility] [place] Start: 05-14-2024 End: 05-14-2024 ambulatory CLINTON GILBERT MD Facility:[facility] [place] Start: 04-27-2024 End: 04-27-[address] Will Lim MD -Medical Out Work Phone: Start: 04-27-2024 End: 04-27-2024 ambulatory Will Lim Facility:[facility] Start: 04-26-2024 End: 04-26-[address] Will Lim MD Work Phone: [facility] Work Phone: Start: 04-26-2024 End: 04-26-[address] Will Lim MD -Cat Scan, [facility] Work Phone: Start: 04-26-2024 End: 04-26-2024 ambulatory Will Lim Facility:[facility] Start: 04-19-2024 End: 04-19-[address] Will Lim MD -Laboratory Work Phone: Start: 04-19-2024 End: 04-19-2024 ambulatory [facility] Bryan Lim Facility:[facility] Start: 04-16-2024 ambulatory Michaela John ty:[facility] Start: 04-16-[address] Michaela Jaramillo MD -[facility] Start: 04-05-2024 End: 04-05-[address] LUPE GONZALEZ MD Facility:A Start: 04-05-2024 End: 04-05-[address] LUPE GONZALEZ MD [facility] [place] Start: 04-02-2024 ambulatory Michaela John ty:[facility] Start: 04-02-[address] Michaela Jaramillo MD -[facility] Start: 03-22-2024 End: 03-22-2024 ambulatory ROSEMARIE TINEO MD Facility:A Start: 03-22-2024 End: 03-22-2024 Patient encounter procedure ROSEMARIE TINEO MD [facility] [place] Start: 03-14-2024 ambulatory Will Lim Facility:[facility] Start: 03-14-[address] Michaela Jaramillo MD -[facility] Start: 03-06-2024 End: 03-06-2024 ambulatory CLINTON GILBERT MD Facility:[facility] Start: 03-06-2024 End: 03-06-2024 Patient encounter procedure CLINTON GILBERT MD [facility] Start: 03-05-2024 ambulatory Michaela John ty:[facility] Start: 03-05-[address] Michaela Jaramillo MD -[facility] Start: 03-02-2024 End: 03-02-[address] SAY LIM MD Facility:A Start: 03-02-2024 End: 03-02-[address] LUPE GONZALEZ MD [facility] [place] Start: 02-27-2024 ambulatory Michaela Luevanoi ty:[facility] Start: 02-27-[address] Michaela Jaramillo MD -[facility] Start: 02-20-2024 ambulatory Will Chi Raphael Facility:[facility] Start: 02-20-[address] Michaela Jaramillo MD -[facility] Start: 02-16-[address] SAY LIM MD Faci lity:A Start: 02-15-2024 ambulatory Will [facility] Raphael Facility:[facility] Start: 02-15-[address] Michaela Jaramillo MD -[facility] Start: 02-13-2024 ambulatory Will Chi Raphael Facility:[facility] Start: 02-13-[address] Michaela Jaramillo MD -[facility] Start: 02-03-2024 End: 02-10-2024 Evaluation and management of inpatient AGUSTINA WILBURN MD FAC [facility] Start: 01-25-2024 End: 02-03-2024 Evaluation and management of inpatient ROSEMARIE TINEO MD [facility] [place] Start: 01-25-2024 End: 01-25-2024 Emergency department patient visit Dr. Charles Rico MD -Emergency Department Work Phone: Start: 01-12-2024 End: 01-12-2024 ambulatory Will Chi Raphael Facility:[facility] Start: 01-12-2024 End: 01-12-[address] Will Lim MD -Physical Therapy Work Phone: Start: 01-10-2024 End: 01-10-2024 ambulatory Will Chi Raphael Facility:[facility] Start: 01-03-2024 End: 01-03-2024 ambulatory Will Chi Raphael Facility:[facility] Start: 01-02-2024 End: 01-02-2024 ambulatory Will Chi Raphael Facility:[facility] Start: 12-30-2023 End: 12-30-2023 ambulatory Will Chi Raphael Facility:[facility] Start: 12-29-2023 End: 12-29-2023 ambulatory Will Chi Raphael Facility:[facility] Start: 12-27-2023 End: 12-27-2023 ambulatory Will Chi Raphael Facility:[facility] Start: 12-01-2023 End: 12-01-2023 ambulatory Will Chi Raphael Facility:[facility] Start: 11-01-2023 End: 11-01-2023 ambulatory Lonny Prayson Facility:[facility] Start: 08-15-2023 End: 08-15-2023 ambulatory Will Chi Raphael Facility:[facility] Start: 07-11-2023 End: 07-11-2023 ambulatory Will Chi Raphael Facility:[facility] Start: 07-04-2023 ambulatory Will Chi Raphael Facility:[facility] Start: 06-29-2023 End: 06-29-[address] Will Lim Work Phone: [facility] Work Phone: Start: 06-29-2023 End: 06-29-[address] Will Lim Work Phone: [facility]-Physical Therapy Work Phone: Start: 06-21-2023 End: 06-21-[address] Will Lim Work Phone: [facility] Work Phone: Start: 06-21-2023 End: 06-21-2023 ambulatory Will Lim Facility:[facility] Start: 05-26-2023 End: 05-26-[address] Will Lim Work Phone: [facility] Work Phone: Start: 05-26-2023 End: 05-26-[address] Will Lim Work Phone: [facility]-Laboratory, Phy Office 3rd Flr Start: 05-19-2023 End: 05-19-[address] Will Lim Work Phone: [facility] Work Phone: Start: 05-19-2023 End: 05-19-[address] Will Lim Work Phone: [facility]-Radiology, [facility] Work Phone: Start: 05-10-2023 End: 05-10-[address] Will Lim Work Phone: [facility] Work Phone: Start: 05-10-2023 End: 05-10-[address] Will Lim Work Phone: [facility]-Pulmonary Services/Neurology Work Phone: Start: 05-09-2023 End: 05-09-[address] Will Lim Work Phone: [facility] Work Phone: Start: 05-09-2023 End: 05-09-[address] Will Lim Work Phone: [facility]-Physical Therapy Work Phone: Start: 04-04-2023 End: 04-04-[address] Will Lim Work Phone: [facility] Work Phone: Start: 03-28-2023 End: 03-28-[address] Will Lmi Work Phone: [facility] Work Phone: Start: 03-28-2023 End: 03-28-[address] Will Lim Work Phone: [facility] Work Phone: Start: 03-22-2023 End: 03-22-[address] Will Lim Work Phone: [facility] Work Phone: Start: 03-16-2023 End: 03-16-[address] Will Lim Work Phone: [facility] Work Phone: Start: 03-07-2023 End: 03-07-[address] Will Lim Work Phone: [facility] Work Phone: Start: 03-07-2023 End: 03-07-[address] Will Lim Work Phone: [facility] Work Phone: Start: 02-15-2023 End: 02-15-[address] Will Lim Work Phone: [facility] Work Phone: Start: 02-08-2023 End: 02-08-[address] Will Lim Work Phone: [facility] Work Phone: Start: 02-01-2023 End: 02-01-2023 Emergency department patient visit [facility]-Emergency Department Work Phone: Start: 01-13-2023 End: 01-13-2023 ambulatory [facility] Work Phone: Start: 01-13-2023 End: 01-13-2023 Patient encounter procedure [facility]-Laboratory Work Phone: Start: 11-24-2022 End: 11-24-2022 ambulatory [facility] Work Phone: Start: 11-24-2022 End: 11-24-2022 Patient encounter procedure [facility]-Outpatient Breast Imaging Work Phone: Start: 11-22-2022 End: 11-22-2022 Patient encounter procedure [facility]-Laboratory, Phy Office 3rd Flr Start: 08-24-2022 End: 08-24-2022 ambulatory [facility] Work Phone: Start: 08-24-2022 End: 08-24-2022 Patient encounter procedure [facility]-Laboratory Work Phone: Start: 05-24-2022 End: 05-24-2022 ambulatory [facility] Work Phone: Start: 05-24-2022 End: 05-24-2022 Patient encounter procedure [facility]-Laboratory Start: 04-30-2022 End: 04-30-2022 Emergency department patient visit [facility]-Emergency Department Start: 04-22-2022 End: 04-22-2022 Patient encounter procedure [facility]-Laboratory, Specimen Start: 04-14-2022 End: 04-14-2022 ambulatory [facility] Work Phone: Start: 04-14-2022 End: 04-14-2022 Patient encounter procedure [facility]-Laboratory, Phy Office 3rd Flr Start: 03-03-2022 End: 03-03-2022 ambulatory [facility] Work Phone: Start: 03-03-2022 End: 03-03-2022 Patient encounter procedure [facility]-Outpatient Bone Densitometry Start: 02-17-2022 End: 02-17-2022 ambulatory [facility] Work Phone: Start: 02-17-2022 End: 02-17-2022 Patient encounter procedure [facility]-Laboratory, y Office 3rd Flr Start: 11-17-2021 End: 11-17-2021 Patient encounter procedure [facility] Office 3rd Flr Procedures Date Procedure Procedure Detail Performing Clinician Start: 06-13-2024 Tooth anabaptist - plastic (physical object) DR LUPE GONZALEZ MD Start: 04-26-2024 CT of head without contrast Dr. Will Lim MD Work Phone: Start: 04-26-[address] Will copeland MD Work Phone: Start: 01-30-[address] LUPE WATERMAN MD Comment on above: right parietal crani otomy for tumor debulking Start: 01-25-2024 CT of head without contrast Dr. Will Lim MD Work Phone: Start: 05-19-2023 Radiography of thoracic spine Dr. Will Lim Work Phone: Start: 05-19-2023 X-ray of lumbar spin e, two or three views Dr. Will Lim Work Phone: Start: 05-10-2023 SARS-CoV-2, Influenz a & RSV (PCR) Dr. Will Lim Work Phone: Start: 03-28-2023 MRI of joint of lowe r extremity Dr. Will Lim Work Phone: Start: 03-07-2023 MRI of cervical spine Lazara Lim Work Phone: Start: 02-15-2023 X-ray of cervical spine Dr. Will Lim Work Phone: Start: 02-01-2023 Plain X-ray of clavicle Start: 02-01-2023 Plain X-ray of shoulder Start: 11-24-2022 Screening mammography Start: 05-24-2022 Radiologic examinati on of knee Start: 04-14-2022 Plain x-ray of wrist Start: 03-03-2022 Dual energy X-ray absorptiometry Arthroplasty of knee DELLA TINEO MD Comment on above: right Carpal tunnel syndro me (disorder) ROSEMARIE TINEO MD Comment on above: left Craniotomy ROSEMARIE CANTU MD Comment on above: debulking of tummor Cyst (disorder) ROSEMARIE WINKLER MD Comment on above: right hand multiple removed Shoulder region stru cture (body structure) ROSEMARIE TINEO MD Comment on above: right Swelling of first metatarsophalangeal joint of hallux (disorder) ROSEMARIE TINEO MD Comment on above: bilateral feet Plan of Treatment Date Care Activity Detail Author Start: 2025 RSV High Risk: (Elde rly (60+) or Population) (1 - 1-dose 75+ series) RSV High Risk: (Elderly (60+) or Population) (1 - 1-dose 75+ series) [facility] Start: 04-27-2024 Iv infusion hydratio n each additional hour HYDRATE IV INFUSION ADD-ON [facility] Start: 04-27-2024 Iv infusion hydratio n initial 31 min-1 hour HYDRATION IV INFUSION INIT [facility] Start: 01-25-2024 [facility] Start: 10-30-2023 COVID-19 Vaccine ( season) COVID-19 Vaccine ( season) [facility] Start: 04-04-[address] [facility] Work Phone: Start: 03-22-[address] [facility] Work Phone: Start: 02-15-[address] [facility] Work Phone: Start: 02-01-2023 [facility] Start: 2000 Pneumococcal vaccination Pneumococcal Vaccine ( - PCV) [facility] Start: 1990 Screening for malign ant neoplasm of breast Mammogram [facility] Start: 1972 DTaP/Tdap/Td Vaccine s (1 - Tdap) DTaP/Tdap/Td Vaccines (1 - Tdap) [facility] Start: 1968 Hepatitis C screening Hepatitis C Sc reening [facility] Start: 1950 Annual wellness visit Welcome to Medicare Visit [facility] Start: 1950 Lipid panel Lipid Panel [facility] Start: 1950 Screening for malign ant neoplasm of colon [facility] Start: 1950 Screening for osteoporosis Bone Density Scan [facility] End: 07-06-2024 MR Brain for new diagnosis tumor WO and W contrast IV [facility] Service Area Work Phone: Comment on above: Once for 1 Occurrenc es starting 07/06/2024 until 07/06/2024 End: 07-06-2024 MR spectroscopy Brain [facility] Service Area Work Phone: Comment on above: Once for 1 Occurrenc es starting 07/06/2024 until 07/06/2024 Patient Education [facility] Work Phone: Patient referral [facility] Work Phone: Immunizations Immunization Date Immunization Notes Care Provider Fa [facility] 12-01-2023 influenza virus vaccine, unspecified formulation ROSEMARIE TINEO MD [facility] 11-15-2023 pneumococcal 20-adrián nt conjugate vaccine ROSEMARIE TINEO MD [facility] 11-15-2023 SARS-CoV-2 (COVID-19 ) [id number] ROSEMARIE TINEO MD [facility] 11-15-2023 zoster vaccine recombinant ROSEMARIE TINEO MD [facility] 01-11-2023 RSV vaccine, preF A-preF B, recombinant ROSEMARIE TINEO MD [facility] 01-11-2023 SARS-CoV-2 (COVID-19 ) [id number] ROSEMARIE TINEO MD [facility] 11-25-2022 zoster vaccine recombinant ROSEMARIE TINEO MD [facility] 11-22-2022 influenza virus vaccine, unspecified formulation ROSEMARIE TINEO MD [facility] Payers Date Payer Category Payer Medicare supplementa l policy (as second payer) [employer] [id number] 2024 Medicare [id number] 2024 Medicare [id number] 2024 Private Health Insurance [id number] 2023 Self-pay 2023 Medicare [id number] 2023 Private Health Insurance [id number] 2004 Unknown ANTHEM [id number] 1950 Unknown [id number] 2.16.840.1.578161.3.579 .2. 1950 Unknown [id number] 2.16.840.1.706620.3.579 .2.62 1950 Unknown [id number] 2.16.840.1.288011.3.579 .2.62 1950 Unknown [id number] 2.16.840.1.816345.3.579 .2. 1950 Unknown [id number] 2.16.840.1.276646.3.579 .2.1244 1950 Unknown [id number] 2.16840.1.140493.3.579 .2.124 1950 Unknown [id number] 2.16.840.1.707107.3.579 .2.62 1950 Unknown [id number] 2.16.840.1.253510.3.579 .2.62 1950 Unknown [id number] 2.16.840.1.106555.3.579 .2.62 1950 Unknown [id number] 2.16840.1.544214.3.579 .2.62 1950 Unknown [id number] 2.16.840.1.479806.3.579 .2.62 1950 Unknown [id number] 2.16.840.1.382982.3.579 .2.62 1950 Unknown [id number] 2.16.840.1.156999.3.579 .2.62 1950 Unknown [id number] 2.16.840.1.539007.3.579 .2.62 1950 Unknown [id number] 2.16.840.1.833248.3.579 .2.627 Unknown [id number] 2.16.840.1.867583.3.579 .2.462 Unknown [id number] 2.16.840.1.803524.3.579 .2.462 Unknown [id number] 2.16.840.1.910029.3.579 .2.462 Unknown [id number] 2.16.840.1.663803.3.579 .2.462 Unknown [id number] 2..840.1.623176.3.579 .2.462 Unknown [id number] 2.840.1.391272.3.579 .2.462 Unknown [id number] 2.840.1.025268.3.579 .2.462 Unknown [id number] 2.840.1.753140.3.579 .2.462 Unknown [id number] 2.840.1.239037.3.579 .2.462 Unknown [id number] 2.840.1.741456.3.579 .2.462 Unknown [id number] 2.840.1.967240.3.579 .2.462 Unknown [id number] 2.840.1.321501.3.579 .2.462 Unknown [id number] 2.840.1.606175.3.579 .2.462 Unknown [id number] 2.16840.1.880296.3.579 .2.462 Unknown [id number] 2.16.840.1.306233.3.579 .2.462 Unknown [id number] 2.16.840.1.478877.3.579 .2.462 Unknown [id number] 2.16.840.1.947787.3.579 .2.462 Unknown [id number] 2.840.1.838511.3.579 .2.462 Unknown [id number] 2.16.840.1.189482.3.579 .2.462 Unknown [id number] 2.16.840.1.066870.3.579 .2.462 Unknown [id number] 2.16.840.1.345850.3.579 .2.462 Unknown [id number] 2.16.840.1.799501.3.579 .2.462 Social History Date Type Detail Facility Start: 11-17-2021 End: 04-04-2023 Tobacco smoking status NHIS Unknown if ever smoked [facility] Start: 1950 Sex Assigned At Female [facility] Start: 01-20-2024 End: 01-25-2024 Tobacco smoking status Never smoked tobacco (finding) [facility] Sexual Orientation [facility] [employer] Start: 05-10-2024 End: 06-04-2024 Sex Female (finding) [facility] Start: 1950 Sex assigned at Not on file [facility] Work Phone: Gender identity Not on file [facility] Work Phone: Start: 06-26-2024 End: 07-06-2024 Exposure to SARS-CoV-2 (event) Not sure [facility] Medical Equipment Procedure Code Equipment Code Equipment Origin al Text Equipment Identifier Dates Craniotomy Stereotactic Unknown 01/30/24 Unknown Unknown FDA Start: 01-30-2024 Craniotomy Stereotactic Unknown 01/30/24 Unknown Unknown FDA Start: 01-30-2024 Craniotomy Stereotactic Unknown 01/30/24 Unknown Unknown FDA Start: 01-30-2024 Craniotomy Stereotactic Unknown 01/30/24 Unknown Unknown FDA Start: 01-30-2024 Craniotomy Stereotactic Unknown 01/30/24 Unknown Unknown FDA Start: 01-30-2024 Craniotomy Stereotactic Unknown 01/30/24 Unknown Unknown FDA Start: 01-30-2024 Craniotomy Stereotactic Unknown 01/30/24 Unknown Unknown FDA Start: 01-30-2024 Craniotomy Stereotactic Unknown 01/30/24 Unknown Unknown FDA Start: 01-30-2024 Craniotomy Stereotactic Unknown 01/30/24 Unknown Unknown FDA Start: 01-30-2024 Craniotomy Stereotactic Unknown 01/30/24 Unknown Unknown FDA Start: 01-30-2024 Craniotomy Stereotactic Unknown 01/30/24 Unknown Unknown FDA Start: 01-30-2024 Craniotomy Stereotactic Unknown 01/30/24 Unknown Unknown FDA Start: 01-30-2024 Craniotomy Stereotactic Unknown 01/30/24 Unknown Unknown FDA Start: 01-30-2024 Craniotomy Stereotactic Unknown 01/30/24 Unknown Unknown FDA Start: 01-30-2024 Craniotomy Stereotactic Unknown 01/30/24 Unknown Unknown FDA Start: 01-30-2024 Craniotomy Stereotactic Unknown 01/30/24 Unknown Unknown FDA Start: 01-30-2024 Craniotomy Stereotactic Unknown 01/30/24 Unknown Unknown FDA Start: 01-30-2024 Craniotomy Stereotactic Unknown 01/30/24 Unknown Unknown FDA Start: 01-30-2024 Craniotomy Stereotactic Unknown 01/30/24 Unknown Unknown FDA Start: 01-30-2024 Craniotomy Stereotactic Unknown 01/30/24 Unknown Unknown FDA Start: 01-30-2024 Craniotomy Stereotactic Unknown 01/30/24 Unknown Unknown FDA Start: 01-30-2024 Craniotomy Stereotactic Unknown 01/30/24 Unknown Unknown FDA Start: 01-30-2024 Craniotomy Stereotactic Unknown 01/30/24 Unknown Unknown FDA Start: 01-30-2024 Craniotomy Stereotactic Unknown 01/30/24 Unknown Unknown FDA Start: 01-30-2024 Craniotomy Stereotactic Unknown 01/30/24 Unknown Unknown FDA Start: 01-30-2024 Craniotomy Stereotactic Unknown 01/30/24 Unknown Unknown FDA Start: 01-30-2024 Craniotomy Stereotactic Unknown 01/30/24 Unknown Unknown FDA Start: 01-30-2024 Craniotomy Stereotactic Unknown 01/30/24 Unknown Unknown FDA Start: 01-30-2024 Craniotomy Stereotactic Unknown 01/30/24 Unknown Unknown FDA Start: 01-30-2024 Craniotomy Stereotactic Unknown 01/30/24 Unknown Unknown FDA Start: 01-30-2024 Craniotomy Stereotactic Unknown 01/30/24 Unknown Unknown FDA Start: 01-30-2024 Craniotomy Stereotactic Unknown 01/30/24 Unknown Unknown FDA Start: 01-30-2024 Craniotomy Stereotactic Unknown 01/30/24 Unknown Unknown FDA Start: 01-30-2024 Craniotomy Stereotactic Unknown 01/30/24 Unknown Unknown FDA Start: 01-30-2024 Craniotomy Stereotactic Unknown 01/30/24 Unknown Unknown FDA Start: 01-30-2024 Craniotomy Stereotactic Unknown 01/30/24 Unknown Unknown FDA Start: 01-30-2024 Craniotomy Stereotactic Unknown 01/30/24 Unknown Unknown FDA Start: 01-30-2024 Craniotomy Stereotactic Unknown 01/30/24 Unknown Unknown FDA Start: 01-30-2024 Craniotomy Stereotactic Unknown 01/30/24 Unknown Unknown FDA Start: 01-30-2024 Craniotomy Stereotactic Unknown 01/30/24 Unknown Unknown FDA Start: 01-30-2024 Craniotomy Stereotactic Unknown 01/30/24 Unknown Unknown FDA Start: 01-30-2024 Craniotomy Stereotactic Unknown 01/30/24 Unknown Unknown FDA Start: 01-30-2024 Craniotomy Stereotactic Unknown 01/30/24 Unknown Unknown FDA Start: 01-30-2024 Craniotomy Stereotactic Unknown 01/30/24 Unknown Unknown FDA Start: 01-30-2024 Craniotomy Stereotactic Unknown 01/30/24 Unknown Unknown FDA Start: 01-30-2024 Craniotomy Stereotactic Unknown 01/30/24 Unknown Unknown FDA Start: 01-30-2024 Craniotomy Stereotactic Unknown 01/30/24 Unknown Unknown FDA Start: 01-30-2024 Craniotomy Stereotactic Unknown 01/30/24 Unknown Unknown FDA Start: 01-30-2024 Craniotomy Stereotactic Unknown 01/30/24 Unknown Unknown FDA Start: 01-30-2024 Craniotomy Stereotactic Unknown 01/30/24 Unknown Unknown FDA Start: 01-30-2024 Craniotomy Stereotactic Unknown 01/30/24 Unknown Unknown FDA Start: 01-30-2024 Craniotomy Stereotactic Unknown 01/30/24 Unknown Unknown FDA Start: 01-30-2024 Craniotomy Stereotactic Unknown 01/30/24 Unknown Unknown FDA Start: 01-30-2024 Craniotomy Stereotactic Unknown 01/30/24 Unknown Unknown FDA Start: 01-30-2024 Craniotomy Stereotactic Unknown 01/30/24 Unknown Unknown FDA Start: 01-30-2024 Craniotomy Stereotactic Unknown 01/30/24 Unknown Unknown FDA Start: 01-30-2024 Craniotomy Stereotactic Unknown 01/30/24 Unknown Unknown FDA Start: 01-30-2024 Craniotomy Stereotactic Unknown 01/30/24 Unknown Unknown FDA Start: 01-30-2024 Craniotomy Stereotactic Unknown 01/30/24 Unknown Unknown FDA Start: 01-30-2024 Craniotomy Stereotactic Unknown 01/30/24 Unknown Unknown FDA Start: 01-30-2024 Craniotomy Stereotactic Unknown 01/30/24 Unknown Unknown FDA Start: 01-30-2024 Craniotomy Stereotactic Unknown 01/30/24 Unknown Unknown FDA Start: 01-30-2024 Craniotomy Stereotactic Unknown 01/30/24 Unknown Unknown FDA Start: 01-30-2024 Craniotomy Stereotactic Unknown 01/30/24 Unknown Unknown FDA Start: 01-30-2024 Craniotomy Stereotactic Unknown 01/30/24 Unknown Unknown FDA Start: 01-30-2024 Craniotomy Stereotactic Unknown 01/30/24 Unknown Unknown FDA Start: 01-30-2024 Craniotomy Stereotactic Unknown 01/30/24 Unknown Unknown FDA Start: 01-30-2024 Craniotomy Stereotactic Unknown 01/30/24 Unknown Unknown FDA Start: 01-30-2024 Craniotomy Stereotactic Unknown 01/30/24 Unknown Unknown FDA Start: 01-30-2024 Craniotomy Stereotactic Unknown 01/30/24 Unknown Unknown FDA Start: 01-30-2024 Craniotomy Stereotactic Unknown 01/30/24 Unknown Unknown FDA Start: 01-30-2024 Craniotomy Stereotactic Unknown 01/30/24 Unknown Unknown FDA Start: 01-30-2024 Craniotomy Stereotactic Unknown 01/30/24 Unknown Unknown FDA Start: 01-30-2024 Craniotomy Stereotactic Unknown 01/30/24 Unknown Unknown FDA Start: 01-30-2024 Craniotomy Stereotactic Unknown 01/30/24 Unknown Unknown FDA Start: 01-30-2024 Craniotomy Stereotactic Unknown 01/30/24 Unknown Unknown FDA Start: 01-30-2024 Craniotomy Stereotactic Unknown 01/30/24 Unknown Unknown FDA Start: 01-30-2024 Craniotomy Stereotactic Unknown 01/30/24 Unknown Unknown FDA Start: 01-30-2024 Craniotomy Stereotactic Unknown 01/30/24 Unknown Unknown FDA Start: 01-30-2024 Craniotomy Stereotactic Unknown 01/30/24 Unknown Unknown FDA Start: 01-30-2024 Functional Status Date Assessment Result Facility 02-10-2024 Functional Status Room check performed [facility] 02-10-2024 [facility] Functional Status Repositions self [facility] 02-09-2024 [facility] Functional Status Kimberlyn Valladares [place] 02-09-2024 Functional Status Supervised Kimberlyn pascual [facility] 02-09-2024 Functional Status Min A [address] [facility] Functional Status Supervised Kimberlyn Valladares [place] 02-08-2024 Functional Status Kimberlyn Valladares [place] 02-08-2024 Functional Status Kimberlyn Valladares [place] 02-08-2024 Functional Status Kimberlyn Valladares [place] 02-08-2024 Functional Status [facility] [place] 02-07-2024 Functional Status [facility]lyn [facility] [place] 02-07-2024 Functional Status [facility]lyn [facility] [place] 02-07-2024 Functional Status OT Toilet Transfers [facility] 02-07-2024 [facility] Functional Status Lunch Percent 100 [facility] 02-05-2024 Functional Status Done Kimberlynrobert pascual [facility] 02-04-2024 Functional Status [facility] 02-04-2024 Functional Status Single level home [facility] 02-04-2024 Functional Status pt reporting t hat her and her spouse had built a new home in 2021 that is completely handicap accessible [facility] 02-04-2024 Functional Status Kimber[facility] 02-03-2024 Functional Status 100 [facility] 02-03-2024 Functional Status Identified as high risk, Fall ID band on, Room located near nursing station, Bed alert on, Door open [facility] 02-03-2024 Functional Status [facility] 02-03-2024 Functional Status [facility] 02-03-2024 Functional Status [facility] 02-03-2024 Functional Status [facility] 02-03-2024 Functional Status [facility] 02-03-2024 Functional Status [facility] 02-02-2024 Functional Status One assist [facility] 02-02-2024 [facility] Status [facility] 02-02-2024 Functional Status [facility] 02-01-2024 Functional Status [facility] 02-01-2024 Functional Status bilateral knee high removed/off [facility] 02-01-2024 Functional Status Stefan [facility] 02-01-2024 Functional Status [facility] 02-01-2024 Functional Status [facility] 01-31-2024 Functional Status heel(s)s elevated [facility] 01-31-2024 Functional Status [facility] 01-31-2024 Functional Status Min [facility] 01-31-2024 Functional Status Morning Snack Percent 1 00 [facility] 01-30-2024 Functional Status [facility]lyn [facility] 01-30-2024 Functional Status Maintained [facility] 01-30-2024 Functional Status [facility] 01-29-2024 Functional Status [facility] 01-29-2024 Functional Status [facility] 01-29-2024 Functional Status [facility] 01-29-2024 Functional Status [facility] 01-28-2024 Functional Status [facility] 01-28-2024 Functional Status [facility] 01-28-2024 Functional Status [facility] 01-27-2024 Functional Status [facility] 01-27-2024 Functional Status [facility] 01-27-2024 Functional Status 0 [facility] 01-27-2024 Functional Status [facility] 01-26-2024 Functional Status [facility] 01-26-2024 [facility] Functional Status Dinner Percent 100 [facility] 01-25-2024 Functional Status Single level home [facility] Mental Status Date Assessment Result Facility 04-27-2024 Cognitive function Voice/Name [facility] Work Phone: 02-10-2024 Mental Status [facility] 02-09-2024 [facility]03-[facility]24 Mental Status Orientation Oriented x 4 [facility] 02-03-[address] [facility] 02-02-[address] [facility] 02-01-[address] [facility] Clinical Notes 05-09-2023 to 04-26-2024 Note Date & Type Note Facility 04-26-2024 Radiology Diagnostic study note [facility] Imaging Services [address] [place] [address] Brain/Head without Contrast MR#: [id number] Acct: [id number] Name: TERENCE VALDIVIA Rep #: [id number] : 1950 F 73 From: [place] MD PCP: Dr. Will Lim MD Status: REG C TIEN Study:Brain/Head without Contrast Date of Exa m: 04/26/24 Exam# [id number] Ordering Dr: Will Lim MD EXAM: BRAIN/HEAD WITHOUT CONTRAST CLINICAL HISTORY: History of glioblastoma of the right parietal lobe. Recent resection. COMPARISON: Comparison is made with prior study dated January 25, 2024. TECHNIQUE: Multiple axial tomographic images were obtained without intravenous contrast administration. Coronal and sagittal reconstruction was obtained as well. FINDINGS: The patient is status post right posterior parietal occipital craniotomy. The previously seen mass lesion has been resected. There is evidence of encephalomalacia along the posterior aspect of the right parietal lobe in keeping with the prior surgical resection. No significant mass effect is seen. CT/Brain/Head without Contrast IMPRESSION: Status post right posterior parietal craniotomy with resection of the previouslyseen mass in the deep right posterior parietal lobe. The non was evidence of postoperative encephalomalacia. No evidence of mass lesion or mass effect. Reading Location: [id number] CC: Dr. Will Lim MD ~ Reimbursement Liaison: Signed [facility] 03-06-2024 Note Exam Date Time Procedure Performing Provider Status 03/06/24 1:31 PM MRI Brain w/ + w/o Contrast NASRIN, JAYSON Garcia MD; Auth (Verified) [id number] ORIGINAL HISTORY: Radiation therapy planning COMPARISON: 30 January 2024, 31 January 2024 TECHNIQUE: 1. Sagittal and axial T1-weighted images. 2. Axial FLAIR images. 3. Axial T2-weighted and T2*-weighted images. 4. Axial diffusion-weighted images with ADC map. 5. Axial, sagittal and coronal T1-weighted images following uncomplicated administration of intravenous gadolinium contrast. FINDINGS: There is a right occipital craniotomy. There is and underlying resection cavity containing fluid, about 2.8 cm in diameter. This is T2 hyperintense and T1 isointense with T1 hyperintense and T2* hypointense enhancing rim. There is an irregular 1 cm enhancing focus at the anterolateral aspect of the lesion. There is increased T2 signal in the medial right cerebral hemisphere, mostly involving medial temporal and occipital cortex including the splenium. The ventricles and sulci are otherwise within normal size limits. There is no shift of midline structures. There are punctate and nodular T2 hyperintensities in the left cerebral white matter. A small to moderate left developmental venous anomaly is incidentally noted. There is no abnormal restriction of diffusion. IMPRESSION: Left occipital resection with evolution of previously seen postoperative changes. Signal changes in the medial left cerebral hemisphere have subsided somewhat, presumably improving edema. Interpreted by: Jose Bowman MD Preliminary Report By: Jose Bowman MD Electronically signed By Jose Bowman MD Dictated Date: 03/06/2024 1:47:36 PM Prelim Date: 03/06/2024 1:53:41 PM Sign Date: 03/06/2024 1:53:41 PM Ordering Provider: [place] [facility]12-13-2024 Hospital Discharge instructions Patient Education 02/10/2024 10:00:16 Weakness Weakness Weakness is a lack of strength. You may feel weak all over your body (generalized), or you may feelweak in one specific part of your body (focal). Common causes of weakness include: Infection and immune system disorders. Physical exhaustion. Internal bleeding or other blood loss that results in a lack of red blood cells (anemia). Dehydration. An imbalance in mineral (electrolyte) levels, such as potassium. Heart disease, circulation problems, or stroke. Other causes include: Some medicines or cancer treatment. Stress, anxiety, or depression. Nervous system disorders. Thyroid disorders. Loss of muscle strength because of age or inactivity. Poor sleep quality or sleep disorders. The cause of your weakness may not be known. Some causes of weakness can be serious, so it is important to see your health care provider. Follow these instructions at home: Activity Rest as needed. Try to get enough sleep. Most adults need 7 8 hours of quality sleep each night. Talk to your health care provider about how much sleep you need each night. Do exercises, such as arm curls and leg raises, for 30 minutes at least 2 days a week or as told byyour health care provider. This helps build muscle strength. Consider working with a physical therapist or production trainer who can develop an exercise plan to help you gain muscle strength. General instructions Take zsgn-ocf-yujchnr and prescription medicines only as told by your health care provider. Eat a healthy, well-balanced diet. This includes: ?Proteins to build muscles, such as lean meats and fish. ?Fresh fruits and vegetables. ?Carbohydrates to boost energy, such as whole grains. Drink enough fluid to keep your urine pale yellow. Keep all follow-up visits as told by your health care provider. This is important. Contact a health care provider if your weakness: Does not improve or gets worse. Affects your ability to think clearly. Affects your ability to do your normal daily activities. Get help right away if you: Develop sudden weakness, especially on one side of your face or body. Have chest pain. Have trouble breathing or shortness of breath. Have problems with your vision. Have trouble talking or swallowing. Have trouble standing or walking. Are light-headed or lose consciousness. Summary Weakness is a lack of strength. You may feel weak all over your body or just in one specific part of your body. Weakness can be caused by a variety of things. In some cases, the cause may be unknown. Rest as needed, and try to get enough sleep. Most adults need 7 8 hours of quality sleep each night. Eat a healthy, well-balanced diet. This information is not intended to replace advice given to you by your health care provider. Make sure you discuss any questions you have with your health care provider. Document Released: 02/14/2006 Document Revised: 09/20/2018 Document Reviewed: 09/20/2018 [employer] Patient Education 2020 [employer]. Follow Up Care 02/03/2024 10:59:13 With:BHARATI MOYA DO Address: [address] [place] [address] Hematology [place] [address]- [phone] When: Unknown With:ROSEMARIE TINEO MD, Neurosurgery Address: [address] [place] [address] [place] [address]- [phone] When: Unknown [facility] 12-13-2024 Note Discharge Instructions Thank you for allowing [facility] to assist you with your healthcare needs. The following is importantdischarge information regarding your hospital visit. Your Care Team [facility] Your Diagnosis Asthenia Brain mass Diabetes mellitus Hypertension What to do next Instructions From Your Doctor You were admitted to [facility] transitional care program for ongoing therapy prior to going home. You have now decided to transition to [facility] to finish your skilled stay. Please follow-up with oncology as scheduled to begin treatment for your brain mass. We also recommend that you follow-up with your PCP in the next week or so for a post- hospitalization follow-up. We wish you well as you transition to [facility] today. Thank you for choosing [facility] for your rehab stay. Scheduled Follow-Up Appointments Appointment Type When With Where Contact Information StatusHEM ONC MEDIA PRODUCER Hospital Follow Up 508:30 AM EST LUPE GONZALEZ MD [facility] Confirmed Follow Up Appointments Follow Up with BHARATI MOYA DO Where:[address] [facility] [place] [address]- [phone] Follow Up with ROSEMARIE TINEO MD, Neurosurgery Where:[address] [facility] [place] [address]- [phone] The Following Activity and Diet Have Been Ordered for You Transfer of Care Activity - Ordered -- As instructed by therapy, 02/10/24 7:35:00 EST Transfer of Care Diet - Ordered -- Type of Diet: Regular Diet, 02/10/24 7:35:00 EST The Following Equipment Has Been Ordered for You Discharge Home Equipment Transfer of Care Wound Care - Ordered -- Suture removal 02/12 by neurosurgery. Shampoo hair daily including incision with baby shampoo orAveeno. Gently cleanse incision with finger pads. Apply clean gauze head wrap daily., 02/10/24 7:35:00 EST The Following Treatments Have Been Ordered for You Discharge Labs No qualifying data available. Discharge Radiology No qualifying data available. Other Therapies Transfer of Care OT - Ordered -- Reason for therapy: weakness, 02/10/24 7:35:00 EST Transfer of Care PT - Ordered -- Reason for therapy: Weakness, 02/10/24 7:35:00 EST Post Acute Orders Transfer of Care Admission Level of Care - Ordered -- Level of Care SNF, 02/10/24 7:35:04 EST Transfer of Care Code Status - Ordered -- Full Code, Constant Order Transfer of Care Orders Electronically Signed By - Ordered -- 02/10/24 7:35:00 ESTJOAO LISA M APRN-PUBLIC SERVICE OFFICER Transfer of Care Prognosis - Ordered -- Fair, Patient Aware: Yes Transfer of Care Rehab Potential - Ordered -- Rehab potential fair, 02/10/24 7:35:04 EST Someone Will Contact You Regarding These Home Health Referrals No home referrals have been ordered for you. No one will call you. Allergies Bee Stings Unknown Latex Unknown codeine Unknown tetanus immune globulin Unknown Medications Please ask your primary doctor or pharmacist before taking any other medication not listed, including over the counter drugs, herbal medications, vitamins and or supplements as they may interact withyour home medications. What How Much When Instructions Last Dose Unchanged acetaminophen (Tylenol 325 mg oral capsule) 650 Milligram by mouth Every 4 hours as needed for Pain, scale 1-3 Unchanged docusate (Colace 100 mg oral capsule) 1 cap by mouth Two (2) times a day as needed for Constipation Unchanged insulin glargine (Lantus 100 units/ mL10 ml vial solution) 30 unit(s) Subcutaneous (INT) Once a day (in the morning) Unchanged insulin lispro (HumaLOG) (HumaLOG 100 units/ mL subcutaneous solution) 10 unit(s) Subcutaneous Three (3) times a day before meals Unchanged insulin lispro (HumaLOG) (HumaLOG 100 units/ mL subcutaneous solution) Give 0-10 units/dose Subcutaneous Three (3) times a day before meals Unchanged levETIRAcetam (levETIRAcetam 500 mg oral tablet) 1 tab(s) by mouth Every 12 hours Unchanged levothyroxine (levothyroxine 112 mcg (0.112 mg) oral tablet) 1 tab(s) by mouth Once a day Unchanged losartan (losartan 100 mg oral tablet) 1 tab(s) by mouth Every day Unchanged pantoprazole (Protonix 40 mg oral enteric coated tablet) 1 tab(s) by mouth Once a day before a meal Unchanged solifenacin (solifenacin 10 mg oral tablet) 1 tab(s) by mouth Once a day Unchanged venlafaxine (venlafaxine 75 mg oral tablet) 1 tab(s) by mouth Once a day Duration: 30 Days What How Much When Comments Stop Taking dexAMETHasone (dexAMETHasone 2 mg oral tablet) 1 tab(s) by mouth Two (2) times a day 2 mg BID today and tomorrow then decrease to 1mg BID x 2 days, then 1mg daily x 2 days and stop. Please take this list to your next doctor s visit. Bring all medications you take, including over the counter medications, herbals and other supplements with you to your doctor s visit. Patients and families are reminded to discard old lists and to update any records with all medication providers or retail pharmacies. Education Materials Weakness Weakness is a lack of strength. You may feel weak all over your body (generalized), or you may feelweak in one specific part of your body (focal). Common causes of weakness include: Infection and immune system disorders. Physical exhaustion. Internal bleeding or other blood loss that results in a lack of red blood cells (anemia). Dehydration. An imbalance in mineral (electrolyte) levels, such as potassium. Heart disease, circulation problems, or stroke. Other causes include: Some medicines or cancer treatment. Stress, anxiety, or depression. Nervous system disorders. Thyroid disorders. Loss of muscle strength because of age or inactivity. Poor sleep quality or sleep disorders. The cause of your weakness may not be known. Some causes of weakness can be serious, so it is important to see your health care provider. Follow these instructions at home: Activity Rest as needed. Try to get enough sleep. Most adults need 7 8 hours of quality sleep each night. Talk to your health care provider about how much sleep you need each night. Do exercises, such as arm curls and leg raises, for 30 minutes at least 2 days a week or as told byyour health care provider. This helps build muscle strength. Consider working with a physical therapist or production trainer who can develop an exercise plan to help you gain muscle strength. General instructions Take qdzm-llx-nrjhmrh and prescription medicines only as told by your health care provider. Eat a healthy, well-balanced diet. This includes: ? Proteins to build muscles, such as lean meats and fish. ? Fresh fruits and vegetables. ? Carbohydrates to boost energy, such as whole grains. Drink enough fluid to keep your urine pale yellow. Keep all follow-up visits as told by your health care provider. This is important. Contact a health care provider if your weakness: Does not improve or gets worse. Affects your ability to think clearly. Affects your ability to do your normal daily activities. Get help right away if you: Develop sudden weakness, especially on one side of your face or body. Have chest pain. Have trouble breathing or shortness of breath. Have problems with your vision. Have trouble talking or swallowing. Have trouble standing or walking. Are light-headed or lose consciousness. Summary Weakness is a lack of strength. You may feel weak all over your body or just in one specific part of your body. Weakness can be caused by a variety of things. In some cases, the cause may be unknown. Rest as needed, and try to get enough sleep. Most adults need 7 8 hours of quality sleep each night. Eat a healthy, well-balanced diet. This information is not intended to replace advice given to you by your health care provider. Make sure you discuss any questions you have with your health care provider. Document Released: 02/14/2006 Document Revised: 09/20/2018 Document Reviewed: 09/20/2018 [employer] Patient Education 2020 C[employer]. Additional Information VACCINATE! IT SAVES LIVES! Members of the community who have not yet received the COVID-19 vaccine and would like to receive it can visit one of [facility] vaccine clinics. There are many vaccine clinic locations within the [facility]. For locations and available times, please visit https://gettheshot.coronavirus.[place].gov/. It is important to note that some COVID mobile vaccine clinics are held outdoors and may be canceled in rainy or stormy conditions. To learn more about pediatric vaccinations (ages 5-11), we invite you to visit the [facility] webpage. https://www.[facility].org/pages/8643-Velnt-Dbwcrsvehho-Mkirlzcxce-Cvaes-Dlg stions.htmlTo learn more about the COVID-19 vaccine, we invite you to visit the CDC website for a list of frequently asked questions.https://www.cdc.gov/coronavirus/2019-ncov/vaccines/faq.html [employer] Patient Portal Access Instructions: Stay connected with your healthcare team and access your personal medical information anytime with the [employer] Patient Portal. Please follow the directions below to create your [employer] account: 1.Access the email account you provided upon registration to the hospital/physician office.2.Look for an invitation email from [facility].3.Open the email and access the invitation link: AcceptInvitation to [facility].4.Fill in the required delgado to create your account. To access your account, visit [employer]. Click the blue button labeled Access Patient Portal and then log in with the username and password that you created in the steps above. You will be able to view your test results, lab results, a summary of your visits, upcoming appointments and more. There is also a convenient messaging option where you can send secure messages to your p rovider. In addition, you will have the ability to download any documents or summaries to your computer and/or send the information securely to a physician. Remember that your healthcare information is confidential, so carefully consider who you will allowto register on the [facility] [employer] Patient Portal for access to your information. You can also access the [facility] [employer] Patient Portal on the [facility] sara. Simply click on Patient Portal and then log into your account. If you would like to receive a full copy of your medical records, please contact the [facility] Medical Records Department by calling [phone], Tuesday through Tuesday between 8 a.m. and 4:30 p.m. HOW TO SAFELY DISPOSE OF PRESCRIPTION MEDICATIONS Please use one of the following methods to safely dispose of your unused medications. 1.Use a drug disposal kit: the drug disposal pouch allows you to safely discard your old and unuseddrugs. Ask your nurse to give you one when you are discharged.2.Visit a local take-back location: Many local pharmacies and police departments have programs that collect old and unwanted prescriptiondrugs. Call your local pharmacy or go to http://JEDI MIND.FusionAds/1A3Dp3r to find one close to you.3.Make use of household items: Use cat litter or old coffee grounds to dispose medications if other options arenot available. Mix your drugs with these household products, seal them in an airtight container andthrow it into the garbage. Call [facility]: [phone] to be sure your drugs can be disposed of in this way. Some medicines may require a different approach.4.Never flush your medications down the toilet. IF YOU HAVE BEEN PRESCRIBED AN OPIOID FOR PAIN If you have been prescribed an opioid (such as hydrocodone, oxycodone or morphine), it is critical to understand the possible side effects and risks of opioid pain medications. Even when taken as directed, opioids can have several side effects including: Tolerance, meaning you might need to take more of a medication for the same pain relief. Nausea, vomiting and/or constipation. Sleepiness, dizziness, dry mouth, confusion, depression or itching. Physical dependence, meaning you have withdrawal symptoms when a medication is stopped, can develop within a few days. KNOW YOUR RESPONSIBILITIES It is important to know exactly how much and how often to take the opioid pain medications you are prescribed. Never take opioids in higher amounts or more often than prescribed. Do not combine opioids with alcohol or other drugs that cause drowsiness, such as benzodiazepines, also known as benzos, including diazepam and alprazolam, muscle relaxants or sleep aids. Never sell or share prescription opioids. This is illegal. Store opioids in a secure place and out of reach of others (including children, family, friends and visitors). The last page of this document has been signed and retained as a CHART COPY. Signatures Patient Education Materials Weakness Medication Leaflets My discharge plan and instructions have been reviewed and explained to me and I,TERENCE VALDIVIA understand my current condition and have read and understand these discharge instructions. I have received a written copy of the plan/instructions. If I have questions, I am aware that I should contact my d octor. Patient/Radar Repairer Signature: Date/Time: Relationship to Patient: Witness Name/Signature: Date/Time: [facility]12-10-2024 Note Date of Service 02/06/2024 Chief Complaint Asthenia Subjective 73-year-old female with past medical history significant for HTN, type 2 diabetes mellitus, MDD, OAB, drug-induced myopathy, HLD, GERD, hearing loss, OA, vitamin D deficiency hypothyroidism, brain mass s/p tumor debulking. Patient was [facility] for evaluation by neurosurgery on 01/25/2024. She was diagnosed with a brain mass at the end of November 2023. She was experiencing frequent falls and left-sided hemiparesis. She went to [facility] on 01/25/2024 after sustaining a fall. She was unable to bear weight. CT of the brain done there shows brain mass redemonstrated, no intracranial hemorrhages visualized. Appears to have mildly increased vasogenic edema surrounding mass and mildly increased midline shift now measuring 6 mm. 1 month prior this was measuring 4 mm. She was initiated on dexamethasone. 01/30/24 MRI of the brain which demonstrated the right parietal/occipital lesion with irregular central enhancement and necrosis. The findings were concerning for malignancy. On 01/29 patient underwent right parietal craniotomy for debulking of tumor. Preliminary report shows likely glioma however full pathology has not been resulted at the time of her discharge. RepeatMRI 1 day postop showed interval resection of the right parieto-occipital mass. No postsurgical complication. Patient was treated with a tapering dose of dexamethasone with stop date of 02/08/2024. She was started on Keppra 500 mg twice daily for seizure prophylaxis. Patient was evaluated by oncology with plans for outpatient follow-up. She was seen by therapy services with recommendations for inpatient rehab. Per therapy documentation patient is a high fall risk due to ataxia and mild left-sided neglect. Prior to discharge she was ambulating 100 feet. Goals were to assist with balance, transfers, lower extremity strengthening. She does become fatigued with further distances. She was subsequently admitted to [facility] TCU. Patient has no new complaints today. Pain well controlled. Vitals have been stable. Objective Vitals and Measurements T: 36.7 C (Oral) TMIN: 36.6 C (Oral) TMAX: 36.7 C (Oral) HR: 61 (Monitored) RR: 16 BP: 137/66 SpO2:95% Intake and Output 7AM Yesterday to 7AM Today Intake and Output (Last 24 hours) Intake Oral Intake 800.00 Output Urine Voided 1.00 Urine Count 4.00 Total Summary Total Intake 800.00 Total Output 1.00 Fluid Balance 799.00 Physical Exam Weight Dosing Weight: 80.8 kg (02/03/24) Medications Medications (18) Active Scheduled: (10) dexamethasone 4 mg tablet 1 mg 0.25 tab(s), Oral, qDay insulin glargine 100 units/ml solution 30 unit(s) 0.3 mL, Subcutaneous, qAM insulin lispro 100 units/mL Soln COA (3 mL) 10 unit(s) 0.1 mL, Subcutaneous, TIDAC levETIRAcetam 500 mg tablet 500 mg 1 tab(s), Oral, q12h levothyroxine 112 mcg tablet 112 mcg 1 tab(s), Oral, qDay losartan 50 mg tablet 100 mg 2 tab(s), Oral, Daily multivitamin (Myadec) with minerals Therapeutic Multiple Vitamins with Minerals Tablet 1 tab(s), Oral, qDay oxybutynin 5 mg Tablet 10 mg 2 tab(s), Oral, qDay pantoprazole 20 mg EC tablet 40 mg 2 tab(s), Oral, qDayAC venlafaxine 75 mg Tablet 75 mg 1 tab(s), Oral, qDay Continuous: (0) PRN: (8) acetaminophen 325 mg Tablet 650 mg 2 tab(s), Oral, q4h acetaminophen 325 mg Tablet 650 mg 2 tab(s), Oral, q4h Al hydrox/Mg hydrox/simethicone 200-200-20 mg/5 mL Susp UD 15 mL, Oral, q4h docusate sodium 100 mg Capsule 100 mg 1 cap(s), Oral, BID guaifenesin 100 mg/5 mL Liquid SUGAR-FREE 120 mL 200 mg 10 mL, Oral, q4h melatonin 3 mg tablet 6 mg 2 tab(s), Oral, qHS menthol (Biofreeze) gel packet 1 sara, Topical, TID polyethylene glycol 3350 - UD packet 17 gram(s) 15 mL, Oral, BID Assessment/Plan 1. Asthenia 2. Brain mass 3. Diabetes mellitus 4. Hypertension Asthenia Continue PT and OT Brain mass s/p right parietal craniotomy for debulking of tumor. Preliminary report shows likely glioma however pathology is pending. Plan for patient to follow-up with oncology on an outpatient basis. Continue seizure prophylaxis with Keppra 500 mg twice daily. Dexamethasone is being tapered with last dose due 02/08/2024. Per neurosurgery discharge note, suture removal to be done on 02/13/2024. I spoke with nurse Lisa at the neurosurgeons office to clarify order and she states that coretta arealso to be removed. Shampoo hair daily including incision with baby shampoo or Aveeno. Gently cleanse incision with fingerpads. Apply clean gauze head wrap. Dressing to be changed daily. Must remained covered until further evaluation by neurosurgery team. Type 2 diabetes mellitus- Glucose goal 180 or less and avoid hypoglycemia. ADA diet. Patient may bring in her ozmpic to use. In the meantime, continue insulin. HTN- SBP goal 140 or less. Continue home antihypertensives. Code Status:Full Code Plan of care discussed with patient, family and interdisciplinary team. All questions answered. Patient verbalizes understanding is agreeable to plan of care. This dictation was performed using voice recognition software and may include grammatical and/or spelling errors. CPT: 04939 Time Spent 30 minutes Digitally Signed by RUBI SINGER STEEL PLACER-PUBLIC SERVICE OFFICER on 02/07/2024 08:16 AM [facility]12-09-2024 Pastoral care Progress note Pastoral Care Note Entered On: 02/06/2024 10:11 EST Performed On: 02/06/2024 10:08 EST by Marino Rosenberg Pastoral Care Type of Pastoral Visit : Initial visit Spiritual Care Visit Initiated by : Process Expert Spiritual Care Reason for Visit : General Pastoral Care Referral From : Patient Spiritual Assessment : Spiritual, not Pentecostal, Hopeful, Positive Image of God Spiritual Care Emotional Assessment : Accepting of Situation, Thoughtful/Reflective Spiritual Care Intervention : Active listening, Words of Encouragement, Humor/Laughter, Explore Spiritual Needs, Explore Emotional Needs, Prayer with Patient/Family Spiritual Outcomes : Spiritual Resources Stirred, Expresses Confidence, Expresses Gratitude Spiritual Plan of Care : Follow-Up Visit Pastoral Care Comments : patient is talkative and open to discuss her health situation; pt is facing chemo and radiation treatments with hopes of stalling the cancer; pt is realistic about life and ; pt concern is for her animals and they are being shipped out for others to watch now which is a relief; patient has been involved in churches but is not currently; pt welcomes prayer, someone to talk to from time to time, and future visits Pastoral Care Visit Length : 20 minute(s) Marino Rosenberg - 02/06/2024 10:08 EST Digitally Signed by Marino Rosenberg on 02/06/2024 10:08 AM [facility]12-07-2024 Evaluation + Plan noteExtracted from: Title:History and Physical Author:RUBI SINGER APRN-PUBLIC SERVICE OFFICER Date:02/04/24 1. Asthenia 2. Brain mass 3. Diabetes mellitus 4. Hypertension Asthenia consult PT and OT Brain mass s/p right parietal craniotomy for debulking of tumor. Preliminary report shows likely glioma however pathology is pending. Plan for patient to follow-up with oncology on an outpatient basis. Continue seizure prophylaxis with Keppra 500 mg twice daily. Dexamethasone is being tapered with last dose due 02/08/2024. Per neurosurgery discharge note, suture removal to be done on 02/13/2024. Shampoo hair daily including incision with baby shampoo or Aveeno. Gently cleanse incision with fingerpads. Apply clean gauze head wrap. Dressing to be changed daily. Must remained covered until further evaluation by neurosurgery team. Type 2 diabetes mellitus- Glucose goal 180 or less and avoid hypoglycemia. ADA diet. HTN- SBP goal 140 or less. Continue home antihypertensives. Code Status:Full Code Plan of care discussed with patient. All questions answered. Patient verbalizes understanding is agreeable to plan of care. This dictation was performed using voice recognition software and may include grammatical and/or spelling errors. Future Appointments Appointment Date:03/02/2024 08:30:00 AM Scheduled Provider:LUPE GONZALEZ MD Location:[facility]M [facility]C Appointment Type:[facility]M ONC MEDIA PRODUCER Hospital Follow Up [facility] 12-07-2024 Note Date of Service 02/04/24 History of Present Illness 73-year-old female with past medical history significant for HTN, type 2 diabetes mellitus, MDD, OAB, drug-induced myopathy, HLD, GERD, hearing loss, OA, vitamin D deficiency hypothyroidism, brain mass s/p tumor debulking. Patient was admitted to [facility] from [facility] for evaluation by neurosurgery on 01/25/2024. She was diagnosed with a brain mass at the end of November 2023. She was experiencing frequent falls and left-sided hemiparesis. She went to [facility] on 01/25/2024 after sustaining a fall. She was unable to bear weight. CT of the brain done there shows brain mass redemonstrated, no intracranial hemorrhages visualized. Appears to have mildly increased vasogenic edema surrounding mass and mildly increased midline shift now measuring 6 mm. 1 month prior this was measuring 4 mm. She was initiated on dexamethasone. 01/30/24 MRI of the brain which demonstrated the right parietal/occipital lesion with irregular central enhancement and necrosis. The findings were concerning for malignancy. On 01/29 patient underwent right parietal craniotomy for debulking of tumor. Preliminary report shows likely glioma however full pathology has not been resulted at the time of her discharge. RepeatMRI 1 day postop showed interval resection of the right parieto-occipital mass. No postsurgical complication. Patient was treated with a tapering dose of dexamethasone with stop date of 02/08/2024. She was started on Keppra 500 mg twice daily for seizure prophylaxis. Patient was evaluated by oncology with plans for outpatient follow-up. She was seen by therapy services with recommendations for inpatient rehab. Per therapy documentation patient is a high fall risk due to ataxia and mild left-sided neglect. Prior to discharge she was ambulating 100 feet. Goals were to assist with balance, transfers, lower extremity strengthening. She does become fatigued with further distances. She was subsequently admitted to [facility] TCU. On exam today, pt denies any fever or chills. No headache or dizziness. Denies chest pain, palpitations. No cough, dyspnea, sputum production. Denies N/V/D/C. No melena/hematochezia. No dysuria or hematuria. No new paresthesias. States that she has lack of coordination on the left. Review of Systems See HPI for specific ROS. All other systems reviewed and negative. Physical Exam Vitals and Measurements T: 36.6 C (Oral) TMIN: 36.6 C (Oral) TMAX: 36.7 C (Oral) HR: 56 (Monitored) RR: 18 BP: 122/68 SpO2:97% HT: 167.6 cm WT: 80.8 kg BMI: 28.76 Weight Dosing Weight: 80.8 kg (02/03/24) GEN: Appears chronically ill EYES: No conjunctival erythema, drainage. EOMI EARS: Hearing grossly intact. NOSE: No nasal discharge. THROAT: Oral cavity and pharynx pink and moist. CHEST: Normal S1 and S2. Rhythm is regular. Clear to auscultation, without rales, rhonchi, wheezing. ABD: Positive bowel sounds x 4 quads. Soft, nondistended, nontender. EXT: No significant deformity or joint abnormality. No edema. Peripheral pulses intact. NEURO: Sensation grossly intact SKIN: Surgical incision covered with dressing. PSYCH: The mental examination revealed the patient was alert and oriented x 4 Assessment/Plan 1. Asthenia 2. Brain mass 3. Diabetes mellitus 4. Hypertension Asthenia consult PT and OT Brain mass s/p right parietal craniotomy for debulking of tumor. Preliminary report shows likely glioma however pathology is pending. Plan for patient to follow-up with oncology on an outpatient basis. Continue seizure prophylaxis with Keppra 500 mg twice daily. Dexamethasone is being tapered with last dose due 02/08/2024. Per neurosurgery discharge note, suture removal to be done on 02/13/2024. Shampoo hair daily including incision with baby shampoo or Aveeno. Gently cleanse incision with fingerpads. Apply clean gauze head wrap. Dressing to be changed daily. Must remained covered until further evaluation by neurosurgery team. Type 2 diabetes mellitus- Glucose goal 180 or less and avoid hypoglycemia. ADA diet. HTN- SBP goal 140 or less. Continue home antihypertensives. Code Status:Full Code Plan of care discussed with patient. All questions answered. Patient verbalizes understanding is agreeable to plan of care. This dictation was performed using voice recognition software and may include grammatical and/or spelling errors. Problem List/Past Medical History Ongoing Brain neoplasm tissue sample Diabetes mellitus Gait difficulty GERD - Gastro-esophageal reflux disease Hearing loss Hyperlipidemia Hypertension Hypothyroidism Neck pain Osteoarthritis STRESS INCONTINENCE, FEMALE Procedure/Surgical History Cyst Knee replacement Craniotomy Shoulder Carpal tunnel Bunion Medications Home Medications (12) Active Colace 100 mg oral capsule 100 mg = 1 cap(s), PRN, Oral, BID dexAMETHasone 2 mg oral tablet 2 mg = 1 tab(s), Oral, BID HumaLOG 100 units/mL subcutaneous solution Give 0-10 units/dose, Subcutaneous, TIDAC HumaLOG 100 units/mL subcutaneous solution 10 unit(s), Subcutaneous, TIDAC Lantus 100 units/mL10 ml vial solution 30 unit(s), Subcutaneous (INT), qAM levETIRAcetam 500 mg oral tablet 500 mg = 1 tab(s), Oral, q12h levothyroxine 112 mcg (0.112 mg) oral tablet 112 mcg = 1 tab(s), Oral, qDay losartan 100 mg oral tablet 100 mg = 1 tab(s), Oral, Daily Protonix 40 mg oral enteric coated tablet 40 mg = 1 tab(s), Oral, qDayAC solifenacin 10 mg oral tablet 10 mg = 1 tab(s), Oral, qDay Tylenol 325 mg oral capsule 650 mg, PRN, Oral, q4h venlafaxine 75 mg oral tablet 75 mg = 1 tab(s), Oral, qDay Allergies Bee Stings Unknown Latex Unknown codeine Unknown tetanus immune globulin Unknown Social History Alcohol Use: Never., 01/20/2024 Home/Environment Living situation: Home with assistance. Lives In: Single level home, 1st floor bedroom, 1st floor bathroom, 1st floor laundry. Current Home Treatments Blood Glucose monitoring, walker, wc, grab bars., 02/03/2024 Nutrition/Health Type of diet: Regular. Appetite Good. Eating Difficulties None. Enteral Feedings No. TPN Feedings No. Skin Breakdown Yes., 02/03/2024 Substance Abuse Use: Never., 01/20/2024 Tobacco Nicotine Use: Never (less than 100 in lifetime)., 01/20/2024 Family History Breast cancer: Mother. Cancer: Mother and Brother. Diabetes: Mother and Brother. Heart disease: Father. Stroke: Father. Health Status Family Member(s) Immunizations zoster vaccine, inactivated: 1 unknown unit (11/15/23) zoster vaccine, inactivated: 1 unknown unit (11/25/22) Code Status Code Status - Ordered -- 02/03/24 18:31:00 EST, Full Code, Constant Order Digitally Signed by RUBI SINGER on 02/04/2024 11:39 AM [facility]12-06-2024 Note Date of Service 02/02/2024 This is a split/shared visit with Dr. 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 POD #3 73-year-old female who presented initially to [facility] ED on 01/25/2024 with complaints of multiple falls, difficulty standing up. During her workup at [facility], had a noncontrasted head CT which demonstrated a brain mass in the right parietal/occipital region. Patient was then transferred to [facility] for evaluation by neurosurgery. She had recently been seen by her primary care physician due to recurrent falls and left-sided weakness; falling almost daily. MRI of the brain was ordered, but prior to completion patient was evaluated after a fall in [place] ED. At that time she had a noncontrasted head CT which demonstrated 3.6 x 2.8 cm enhancing mass in the posterior aspect of the right parietal/occipital lobes with surrounding mass effect. Due to these findings, patient was referred on an outpatient basis to neurosurgery office, and brain MRI, PET scan, and CT chest abdomen, and pelvis with were ordered. Patient did havean MRI of the brain on 01/02/2024, and a PET scan on 01/03/2024. According to H&P, PET scan report indicated FDG concentration in the right parietal lobe, concerning for neoplasm. No other quantitative hypermetabolic abnormalities noted. Prior to scheduled follow-up, patient continue to follow athome, became progressively weaker, and was taken to [place] ED for further evaluation. In ED, patient was given 10 mg of dexamethasone, and then scheduled on 4 mg every 6 hours. Has had no documented/witnessed seizure activity, and did not require Keppra pre-operatively. MRI of the brain completed here demonstrated the right parietal/occipital lesion with irregular central enhancement and necrosis. Findings concerning for malignancy. This was reviewed by Dr. 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 In addition, noted heavy involvement of the cortex and gyri are widely expanded. The deep white matter reveals heterogeneous portions of the mass. Dr. Tineo met with the patient and family at bedside, reviewed imaging, and recommendation toproceed with surgical debulking. Patient and family were agreeable. Patient was taken to OR 01/30/2024 for right parietal craniotomy for debulking of tumor by Dr. Tineo; refer to operative note for details. Intra- operatively, a subgaleal drain was placed. Patient was returned to SICU for recovery and close post-op monitoring with frequent neuro checks. She wasplaced on Keppra post-operatively, 500mg BID. Continued on dexamethasone. Post-operatively, Patient continues to do well. At this point she is awaiting insurance approval totransfer to inpatient rehab. She is tolerating PO intake without complaints of nausea or vomiting. She voiding without difficulty, and is neurologically stable. She was evaluated OOB, sitting up in chair after working with PT. States she ambulated today out of room to the hallway; yesterday had just ambulated from bed to chair and bathroom in the room with PT. She reports still leans toward the left, but does feel this is not as bad as prior to surgery. 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 Reports mild head discomfort, though no actual headache. Subgaleal drain was discontinued 02/01/2024; prophylactic ATB stopped Objective Vitals and Measurements T: 36.6 C (Oral) TMIN: 36.3 C (Oral) TMAX: 36.9 C (Oral) HR: 56 RR: 18 BP: 120/70 SpO2: 96% Intake and Output 7AM Yesterday to 7AM Today Intake and Output (Last 24 hours) Intake Oral Intake 1000.00 Output Stool Count 0.00 Urine Count 4.00 Emesis Count 0.00 Total Summary Total Intake 1000.00 Total Output 0.00 Fluid Balance 1000.00 Physical Exam Patient is awake, alert, oriented, and conversant. Face symmetric. Tongue protrudes midline. Has some dysmetria with finger to nose testing on the left, though no pronator drift. She has strong hand grasps, and moves upper extremities well/fairly equal in strength. Sensation is intact in bilateral UE and LE. Has strong and equal strength of LEs. Abdomen is soft. BS present. States has had a BM since surgery. Passing flatus. Lungs are CTA. Respirations unlabored. Regular heart sounds/rhythm. Posterior cranial incision is well approximated with sutures intact. Has bilateral head clamp sites(used intra-operatively) with coretta intact. No significant swelling, redness, drainage or bleeding at sites. Weight Dosing Weight: 81.2 kg (01/30/24) Medications Medications (19) Active Scheduled: (11) dexamethasone 4 mg/1 mL solution 2 mg 0.5 mL, IV Push, TID heparin 5,000 units/mL (1 mL) vial 5,000 unit(s) 1 mL, Subcutaneous, q8h insulin glargine 30 unit(s) 0.3 mL, Subcutaneous (INT), qAM insulin lispro 100 units/mL Soln (3 mL) Give 0-10 units/dose, Subcutaneous, TIDAC insulin lispro 100 units/mL Soln (3 mL) 10 unit(s) 0.1 mL, Subcutaneous, TIDAC levETIRAcetam 500 mg tablet 500 mg 1 tab(s), Oral, q12h levothyroxine 112 mcg tablet 112 mcg 1 tab(s), Oral, qDay losartan 100 mg tablet 100 mg 1 tab(s), Oral, Daily oxybutynin 5 mg ER tablet 10 mg 2 tab(s), Oral, qDay pantoprazole 40 mg EC tablet 40 mg 1 tab(s), Oral, qDayAC venlafaxine 75 mg Tablet 75 mg 1 tab(s), Oral, qDay Continuous: (0) PRN: (8) acetaminophen 325 mg Tablet 650 mg 2 tab(s), Oral, q4h acetaminophen-HYDROcodone 325-5 mg tablet 1 tab(s), Oral, q4h dextrose 50% Solution Disp syringe 50 mL 12.5 gram(s) 25 mL, IV Push, AsDirected docusate sodium 100 mg Capsule 100 mg 1 cap(s), Oral, BID hydralazine 20 mg/mL (1mL) vial 10 mg 0.5 mL, IV Push, q2h HYDROmorphone 0.5 mg/0.5 mL syringe 0.2 mg 0.2 mL, IV Push, q2h magnesium hydroxide 8% Suspension 30 mL UD 30 mL, Oral, qHS ondansetron 2 mg/ 1 mL 2 mL INJ 4 mg 2 mL, IV Push, q4h Lab Results No 36 Hour Lab Data EKG No qualifying data available. 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 Tineo 01/30/24. --Awaiting final path from intra-operative biopsy. 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 Dr. Tineo discussed this with the patient. --Had routine post-op Brain MRI, reviewed by Dr. Tineo; refer to her addendum for details. --On Keppra post-operatively, 500mg BID for seizure prophylaxis. Continues without seizure activity/events. --Remains on dexamethasone, dose was decreased to 2mg TID 02/01/[address] Tineo instructions. Continue Protonix while on steroids. Will again decrease steroid dose to 2 mg BID tomorrow 02/03/2024. --Patient is neurologically stable and doing well post-op. Continue neuro checks q4 hours. --Subgaleal drain removed 02/01/24. Prophylactic ATB stopped. --Resumed Hep sq post-op 02/01/24 for DVT prophylaxis. Continue SCDs to B/L LE at all times while inbed. --Participating in PT/OT daily; continue treatments. OOB to chair TID with meals. Has been skilled for inpatient therapy. 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 preCERT started 02/01/24 --Encourage incentive spirometer, 10x per hour every hour while awake. --Cleanse incision daily with mild soap/water. Pat dry. Change DSD with 4x4 gauze laid over incision and secured gently with Kerlix head wrap. HTN, improved --Patient did initially require nicardipine drip post-op, however was able to be weaned down and off. Has been kept off. --BP stable, improved. Remains off nicardipine; hasn't required PRN antihypertensives > 24 hrs. --Maintain SBP < 140mmHg Please see Dr. Tineo's addendum for further details regarding neurosurgical assessment/plan of care. Digitally Signed by MADIHA ZHANG on 02/02/2024 02:30 PM [id number] Discharge Instructions Thank you for allowing [facility] to assist you with your healthcare needs. The following is importantdischarge information regarding your hospital visit. Your Care Team SAY LIM MD Your Diagnosis Brain malignancy What to do next Instructions From Your Doctor Sutures are to be removed on 02/13/24 Shampoo hair at least daily, including incision. Use baby shampoo or Aveeno; gently cleanse incision with finger pads, then apply clean gauze headwrap. Change gauze dressing over incision daily. Must remain covered until further instruction is given at post-op visit. Avoid any strenuous activity; nothing more strenuous than making a sandwich. No heavy house or yardwork. Check blood sugar AC and HS. Please call Dr. Tineo's office with any questions or concerns prior to scheduled visit. If your surgical incision sites become red, swollen, painful, open and/or there is drainage around site or if you develop a fever/chills- Contact neurosurgery office immediately. The clinician oncology should be in contacting with you to assist with scheduling any appointments and to make sure you are on track with your follow up appointments. Radiation therapy should also be contacting your to schedule an appointment, once your incision is healed. Follow Up Appointments Follow Up with [facility] [place], When:Within 1-2 days Follow Up with BHARATI MOYA DO Where:[address] [place] [address] Hematology [place] [address] [phone] Additional Information: The Oncology office will call to schedule an appointment with either Dr. Moya or Dr. Martinez. If you have not heard from them by the end of next week, please call them to schedule an appointment. Follow Up with ROSEMARIE TINEO MD, Neurosurgery Where:[address] [place] [address]- [phone] Additional Information: Follow up after discharged from rehab. Please call the office to schedule afollow up appointment once you know the date of discharge from rehab. Follow Up with SAY LIM MD When:Within 1-2 days Where:[facility] [address] [place] [address]- Additional Information: Please call the office to schedule a hospital follow-up appointment. The Following Activity and Diet Have Been Ordered for You Transfer of Care Activity - Ordered -- Activity As Tolerated, 02/03/24 15:14:00 EST Transfer of Care Diet - Ordered -- Type of Diet: Regular Diet, 02/03/24 15:14:00 EST The Following Equipment Has Been Ordered for You Discharge Home Equipment Transfer of Care Wound Care - Ordered -- Remove craniotomy suture on 02/13/24., 02/03/24 15:14:00 EST Transfer of Care Wound Care - Ordered -- Craniotomy incision to be cleansed daily in shower with baby shampoo or mild soap. Gauze head wrap to be applied and changed daily., 02/03/24 15:14:00 EST The Following Treatments Have Been Ordered for You Discharge Labs No qualifying data available. Discharge Radiology No qualifying data available. 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., 02/03/24 15:14:00 EST Post Acute Orders Transfer of Care Admission Level of Care - Ordered -- Level of Care Acute Rehab, 02/03/24 15:15:04 EST Transfer of Care Code Status - Ordered -- Full Code, Constant Order Transfer of Care Communication Order - Ordered -- Expect less than 30 day stay., 02/03/24 15:15:04 EST Transfer of Care Orders Electronically Signed By - Ordered -- 02/03/24 15:14:00 EST, ROSEMARIE TINEO MD Transfer of Care Prognosis - Ordered -- Good, Patient Aware: Yes Transfer of Care Rehab Potential - Ordered -- Rehab potential good, 02/03/24 15:15:04 EST Someone Will Contact You Regarding These Home Health Referrals No home referrals have been ordered for you. No one will call you. Allergies Bee Stings Unknown Latex Unknown codeine Unknown tetanus immune globulin Unknown Medications Please ask your primary doctor or pharmacist before taking any other medication not listed, including over the counter drugs, herbal medications, vitamins and or supplements as they may interact withyour home medications. What How Much When Instructions Last Dose New acetaminophen (Tylenol 325 mg oral capsule) 650 Milligram by mouth Every 4 hours as needed for Pain, scale 1-3 New dexAMETHasone (dexAMETHasone 2 mg oral tablet) 1 tab(s) by mouth Two (2) times a day 2 mg BID today and tomorrow then decrease to 1mg BID x 2 days, then 1mg daily x 2 days and stop. New docusate (Colace 100 mg oral capsule) 1 cap by mouth Two (2) times a day as needed for Constipation New insulin glargine (Lantus 100 units/ mL10 ml vial solution) 30 unit(s) Subcutaneous (INT) Once a day (in the morning) New insulin lispro (HumaLOG) (HumaLOG 100 units/ mL subcutaneous solution) Give 0-10 units/dose Subcutaneous Three (3) times a day before meals New insulin lispro (HumaLOG) (HumaLOG 100 units/ mL subcutaneous solution) 10 unit(s) Subcutaneous Three (3) times a day before meals New levETIRAcetam (levETIRAcetam 500 mg oral tablet) 1 tab(s) by mouth Every 12 hours New pantoprazole (Protonix 40 mg oral enteric coated tablet) 1 tab(s) by mouth Once a day before a meal Changed levothyroxine (levothyroxine 112 mcg (0.112 mg) oral tablet) 1 tab(s) by mouth Once a day Unchanged losartan (losartan 100 mg oral tablet) 1 tab(s) by mouth Every day Unchanged solifenacin (solifenacin 10 mg oral tablet) 1 tab(s) by mouth Once a day Unchanged venlafaxine (venlafaxine 75 mg oral tablet) 1 tab(s) by mouth Once a day Duration: 30 Days What How Much When Comments Stop Taking semaglutide (Ozempic 2 mg/ 3 mL (0.25 mg or 0.5 mg dose) subcutaneous solution) 0.25 Milligram Subcutaneous Every week rotate injection sites Please take this list to your next doctor s visit. Bring all medications you take, including over the counter medications, herbals and other supplements with you to your doctor s visit. Patients and families are reminded to discard old lists and to update any records with all medication providers or retail pharmacies. Education Materials Pain Relief Before and After Surgery Pain relief is an important part of your overall care before, during, and after surgery. You and your health care provider will work together to make a plan to manage pain that you have before surgery (preoperative) and after surgery (postoperative). Addressing pain before surgery lessens the pain that you will have after surgery. Make sure that you fully understand and agree with your pain relief plan. If you have questions or concerns, it is important to discuss them with your health care provider. If you have pain that is not controlled by medicine, tell your health care provider. Severe pain after surgery may: Prevent sleep. Decrease your ability to breathe deeply and to cough. This can result in pneumonia or upper airway infections. Cause your heart to beat more quickly. Cause your blood pressure to be higher. Increase your risk for stomach and digestive problems. Slow down wound healing. Lead to depression, anxiety, and feelings of helplessness. Your health care provider may use more than one method at a time to help relieve your pain. Using this approach may allow you to eat, move around, and possibly leave the hospital sooner. What are options for managing pain before and after surgery? Oral pain medicines Pain medicines taken by mouth (orally) include: Non-narcotic medicines: ? Acetaminophen. ? NSAIDs, such as ibuprofen and naproxen. Muscle relaxants. These may relieve pain caused by muscle spasms. Anticonvulsants. These medicines are usually used to treat seizures. They may help to lessen nerve pain. Opioids. These medicines relieve pain by binding to pain receptors in the brain and spinal cord (narcotic pain medicines). Opioids may help relieve short-term (acute) postoperative pain that is moderate to moderately severe. ? Opioids are often combined with non-narcotic medicines to improve pain relief, lower the risk of side effects, and lower the chance of addiction. ? To help prevent addiction, opioids are given for short periods of time in careful doses. If you follow instructions from your health care provider and you do not have a history of substance abuse, your risk of becoming addicted to opioids is low. Some of these medicines may be available in injectable form. They may be given through an IV if youare unable to eat or drink. As-needed pain control You can receive pain medicine when you need it, through an IV or as a pill or liquid. When you tellyour health care provider that you are having pain, he or she will give you the proper pain medicine. Medicine that numbs an area You may be given pain medicine that numbs an area (local anesthetic): As an injection near your painful area (local infiltration). As an injection near the nerve that provides feeling to a specific part of your body (peripheral nerve block). As an injection in your spine (spinal block). Through a local anesthetic reservoir pump. For this method, one or more catheters are inserted intoyour incision at the end of your procedure. These catheters are connected to a device that is filled with a non-narcotic pain medicine. Medicine gradually empties into your incision area over the next several days. Continuous epidural pain control With this method, you receive pain medicine through a small, thin tube (catheter) that is inserted into your back, near your spinal cord. Medicine flows through the catheter to lessen pain in areas of your body that are below the catheter. The catheter is usually put into the back shortly before surgery. It may be left in until you can eat, take medicine by mouth, pass urine, and have a bowel movement. This method may be recommended if you are having surgery on your abdomen, hip area, or legs. This method of pain relief may help you heal faster because you may be able to do these things sooner: Regain normal bowel and bladder function. Return to eating. Get up and walk. IV patient-controlled analgesia (DRY CELL BATTERY ASSEMBLER) pump With this method, you receive pain medicine through an IV that is connected to a DRY CELL BATTERY ASSEMBLER pump. The DRY CELL BATTERY ASSEMBLER pump gives you a specific amount of medicine when you push a button. This lets you control how much medicine you receive. You are the only person who should push this button. The pump is set up so that you cannot accidentally give yourself too much medicine. You will be able to start using your DRY CELL BATTERY ASSEMBLER pump in the recovery room after your procedure. Tell your health care provider: If you are having too much pain. If you cannot push the button. If you are feeling too sleepy or nauseous. Other pain control methods Other methods of pain relief after surgery include: Heat and cold therapy. Massage. Topical analgesics. These are patches, creams, and gels that can be applied on the skin. Steroid medicines. These medicines may be given to lessen swelling. Physical therapy. A physical therapist will work with you to meet goals, such as feeling and functioning better. Physical therapy usually includes specific exercises that are tailored to your needs. Transcutaneous electrical nerve stimulation (TENS). This method sends electrical signals through the skin to interrupt pain signals. Cognitive behavioral therapy (CBT). This therapy helps you learn coping skills for dealing with pain. What are some questions to ask my health care provider? What pain relief options would be best for me? What are the risks of each option? What are the benefits of each option? How long will I need pain relief after surgery? Summary A plan to manage pain that you may have before surgery (preoperative) and after surgery (postoperative) is an important part of your overall care. Pain management options include medicines and non-medical therapies, such as physical therapy, massage, and heat or cold therapy. Pain management medicines include opioids and non-narcotic medicines such as NSAIDs, steroids, or local anesthetics. Pain medicines can have side effects. Side effects of opioids include constipation, nausea, excessive sleepiness, and risk of addiction. Your health care provider will work with you to prevent or manage these side effects and risks. This information is not intended to replace advice given to you by your health care provider. Make sure you discuss any questions you have with your health care provider. Document Released: 05/07/2003 Document Revised: 02/17/2018 Document Reviewed: 05/27/2017 [employer] Patient Education 2020 [employer] Additional Information VACCINATE! IT SAVES LIVES! Members of the community who have not yet received the COVID-19 vaccine and would like to receive it can visit one of [facility] vaccine clinics. There are many vaccine clinic locations within the [facility]. For locations and available times, please visit https://[email or web address].[place].gov/. It is important to note that some COVID mobile vaccine clinics are held outdoors and may be canceled in rainy or stormy conditions. To learn more about pediatric vaccinations (ages 5-11), we invite you to visit the [facility] webpage. https://www.[facility].org/pages/9326-Wfiju-Olnlvniqtbq-Owgkdkdmco-Enrco-Wgz stions.htmlTo learn more about the COVID-19 vaccine, we invite you to visit the CDC website for a list of frequently asked questions.https://www.cdc.gov/coronavirus/2019-ncov/vaccines/faq.html [facility] Patient Portal Access Instructions: Stay connected with your healthcare team and access your personal medical information anytime with the [facility] Patient Portal. Please follow the directions below to create your [facility] account: 1.Access the email account you provided upon registration to the hospital/physician office.2.Look for an invitation email from [facility].3.Open the email and access the invitation link: AcceptInvitation to [facility].4.Fill in the required delgado to create your account. To access your account, visit [email or web address]. Click the blue button labeled Access Patient Portal and then log in with the username and password that you created in the steps above. You will be able to view your test results, lab results, a summary of your visits, upcoming appointments and more. There is also a convenient messaging option where you can send secure messages to your p rovider. In addition, you will have the ability to download any documents or summaries to your computer and/or send the information securely to a physician. Remember that your healthcare information is confidential, so carefully consider who you will allowto register on the [facility] Patient Portal for access to your information. You can also access the [facility] Patient Portal on the [facility] sara. Simply click on Patient Portal and then log into your account. If you would like to receive a full copy of your medical records, please contact the [facility] Medical Records Department by calling [phone], Tuesday through Tuesday between 8 a.m. and 4:30 p.m. HOW TO SAFELY DISPOSE OF PRESCRIPTION MEDICATIONS Please use one of the following methods to safely dispose of your unused medications. 1.Use a drug disposal kit: the drug disposal pouch allows you to safely discard your old and unuseddrugs. Ask your nurse to give you one when you are discharged.2.Visit a local take-back location: Many local pharmacies and police departments have programs that collect old and unwanted prescriptiondrugs. Call your local pharmacy or go to http://JEDI MIND.FusionAds/5T5Fk9u to find one close to you.3.Make use of household items: Use cat litter or old coffee grounds to dispose medications if other options arenot available. Mix your drugs with these household products, seal them in an airtight container andthrow it into the garbage. Call [facility]: [phone] to be sure your drugs can be disposed of in this way. Some medicines may require a different approach.4.Never flush your medications down the toilet. IF YOU HAVE BEEN PRESCRIBED AN OPIOID FOR PAIN If you have been prescribed an opioid (such as hydrocodone, oxycodone or morphine), it is critical to understand the possible side effects and risks of opioid pain medications. Even when taken as directed, opioids can have several side effects including: Tolerance, meaning you might need to take more of a medication for the same pain relief. Nausea, vomiting and/or constipation. Sleepiness, dizziness, dry mouth, confusion, depression or itching. Physical dependence, meaning you have withdrawal symptoms when a medication is stopped, can develop within a few days. KNOW YOUR RESPONSIBILITIES It is important to know exactly how much and how often to take the opioid pain medications you are prescribed. Never take opioids in higher amounts or more often than prescribed. Do not combine opioids with alcohol or other drugs that cause drowsiness, such as benzodiazepines, also known as benzos, including diazepam and alprazolam, muscle relaxants or sleep aids. Never sell or share prescription opioids. This is illegal. Store opioids in a secure place and out of reach of others (including children, family, friends and visitors). The last page of this document has been signed and retained as a CHART COPY. Signatures Patient Education Materials Pain Relief Before and After Surgery Medication Leaflets My discharge plan and instructions have been reviewed and explained to me and I,TERENCE VADLIVIA understand my current condition and have read and understand these discharge instructions. I have received a written copy of the plan/instructions. If I have questions, I am aware that I should contact my d octor. Patient/Radar Repairer Signature: Date/Time: Relationship to Patient: Witness Name/Signature: [id number] Note Discharge Instructions Thank you for allowing [facility] to assist you with your healthcare needs. The following is importantdischarge information regarding your hospital visit. Your Care Team SAY LIM MD Your Diagnosis Brain malignancy What to do next Instructions From Your Doctor Sutures are to be removed on 02/13/24 Shampoo hair at least daily, including incision. Use baby shampoo or Aveeno; gently cleanse incision with finger pads, then apply clean gauze headwrap. Change gauze dressing over incision daily. Must remain covered until further instruction is given at post-op visit. Avoid any strenuous activity; nothing more strenuous than making a sandwich. No heavy house or yardwork. Check blood sugar AC and HS. Please call Dr. Tineo's office with any questions or concerns prior to scheduled visit. If your surgical incision sites become red, swollen, painful, open and/or there is drainage around site or if you develop a fever/chills- Contact neurosurgery office immediately. The clinician oncology should be in contacting with you to assist with scheduling any appointments and to make sure you are on track with your follow up appointments. Radiation therapy should also be contacting your to schedule an appointment, once your incision is healed. Follow Up Appointments Follow Up with BHARATI MOYA DO Where:[address] [place] [address] Hematology [place] [address]- [phone] Additional Information: The Oncology office will call to schedule an appointment with either Dr. Moya or Dr. Martinez. If you have not heard from them by the end of next week, please call them to schedule an appointment. Follow Up with ROSEMARIE TINEO MD, Neurosurgery Where:[address] [place] [address] [place] [address]- [phone] Additional Information: Follow up after discharged from rehab. Please call the office to schedule afollow up appointment once you know the date of discharge from rehab. Follow Up with SAY LIM MD When:Within 1-2 days [facility] [address] [place] [address]- Additional Information: Please call the office to schedule a hospital follow-up appointment. The Following Activity and Diet Have Been Ordered for You Transfer of Care Activity - Ordered -- Activity As Tolerated, 02/03/24 15:14:00 EST Transfer of Care Diet - Ordered -- Type of Diet: Regular Diet, 02/03/24 15:14:00 EST The Following Equipment Has Been Ordered for You Discharge Home Equipment Transfer of Care Wound Care - Ordered -- Remove craniotomy suture on 02/13/24., 02/03/24 15:14:00 EST Transfer of Care Wound Care - Ordered -- Craniotomy incision to be cleansed daily in shower with baby shampoo or mild soap. Gauze head wrap to be applied and changed daily., 02/03/24 15:14:00 EST The Following Treatments Have Been Ordered for You Discharge Labs No qualifying data available. Discharge Radiology No qualifying data available. 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., 02/03/24 15:14:00 EST Post Acute Orders Transfer of Care Admission Level of Care - Ordered -- Level of Care Acute Rehab, 02/03/24 15:15:04 EST Transfer of Care Code Status - Ordered -- Full Code, Constant Order Transfer of Care Communication Order - Ordered -- Expect less than 30 day stay., 02/03/24 15:15:04 EST Transfer of Care Orders Electronically Signed By - Ordered -- 02/03/24 15:14:00 EST, ROSEMARIE TINEO MD Transfer of Care Prognosis - Ordered -- Good, Patient Aware: Yes Transfer of Care Rehab Potential - Ordered -- Rehab potential good, 02/03/24 15:15:04 EST Someone Will Contact You Regarding These Home Health Referrals No home referrals have been ordered for you. No one will call you. Allergies Bee Stings Unknown Latex Unknown codeine Unknown tetanus immune globulin Unknown Medications Please ask your primary doctor or pharmacist before taking any other medication not listed, including over the counter drugs, herbal medications, vitamins and or supplements as they may interact withyour home medications. What How Much When Instructions Last Dose New acetaminophen (Tylenol 325 mg oral capsule) 650 Milligram by mouth Every 4 hours as needed for Pain, scale 1-3 New dexAMETHasone (dexAMETHasone 2 mg oral tablet) 1 tab(s) by mouth Two (2) times a day 2 mg BID today and tomorrow then decrease to 1mg BID x 2 days, then 1mg daily x 2 days and stop. New docusate (Colace 100 mg oral capsule) 1 cap by mouth Two (2) times a day as needed for Constipation New insulin glargine (Lantus 100 units/ mL10 ml vial solution) 30 unit(s) Subcutaneous (INT) Once a day (in the morning) New insulin lispro (HumaLOG) (HumaLOG 100 units/ mL subcutaneous solution) Give 0-10 units/dose Subcutaneous Three (3) times a day before meals New insulin lispro (HumaLOG) (HumaLOG 100 units/ mL subcutaneous solution) 10 unit(s) Subcutaneous Three (3) times a day before meals New levETIRAcetam (levETIRAcetam 500 mg oral tablet) 1 tab(s) by mouth Every 12 hours New pantoprazole (Protonix 40 mg oral enteric coated tablet) 1 tab(s) by mouth Once a day before a meal Changed levothyroxine (levothyroxine 112 mcg (0.112 mg) oral tablet) 1 tab(s) by mouth Once a day Unchanged losartan (losartan 100 mg oral tablet) 1 tab(s) by mouth Every day Unchanged solifenacin (solifenacin 10 mg oral tablet) 1 tab(s) by mouth Once a day Unchanged venlafaxine (venlafaxine 75 mg oral tablet) 1 tab(s) by mouth Once a day Duration: 30 Days What How Much When Comments Stop Taking semaglutide (Ozempic 2 mg/ 3 mL (0.25 mg or 0.5 mg dose) subcutaneous solution) 0.25 Milligram Subcutaneous Every week rotate injection sites Please take this list to your next doctor s visit. Bring all medications you take, including over the counter medications, herbals and other supplements with you to your doctor s visit. Patients and families are reminded to discard old lists and to update any records with all medication providers or retail pharmacies. Education Materials Pain Relief Before and After Surgery Pain relief is an important part of your overall care before, during, and after surgery. You and your health care provider will work together to make a plan to manage pain that you have before surgery (preoperative) and after surgery (postoperative). Addressing pain before surgery lessens the pain that you will have after surgery. Make sure that you fully understand and agree with your pain relief plan. If you have questions or concerns, it is important to discuss them with your health care provider. If you have pain that is not controlled by medicine, tell your health care provider. Severe pain after surgery may: Prevent sleep. Decrease your ability to breathe deeply and to cough. This can result in pneumonia or upper airway infections. Cause your heart to beat more quickly. Cause your blood pressure to be higher. Increase your risk for stomach and digestive problems. Slow down wound healing. Lead to depression, anxiety, and feelings of helplessness. Your health care provider may use more than one method at a time to help relieve your pain. Using this approach may allow you to eat, move around, and possibly leave the hospital sooner. What are options for managing pain before and after surgery? Oral pain medicines Pain medicines taken by mouth (orally) include: Non-narcotic medicines: ? Acetaminophen. ? NSAIDs, such as ibuprofen and naproxen. Muscle relaxants. These may relieve pain caused by muscle spasms. Anticonvulsants. These medicines are usually used to treat seizures. They may help to lessen nerve pain. Opioids. These medicines relieve pain by binding to pain receptors in the brain and spinal cord (narcotic pain medicines). Opioids may help relieve short-term (acute) postoperative pain that is moderate to moderately severe. ? Opioids are often combined with non-narcotic medicines to improve pain relief, lower the risk of side effects, and lower the chance of addiction. ? To help prevent addiction, opioids are given for short periods of time in careful doses. If you follow instructions from your health care provider and you do not have a history of substance abuse, your risk of becoming addicted to opioids is low. Some of these medicines may be available in injectable form. They may be given through an IV if youare unable to eat or drink. As-needed pain control You can receive pain medicine when you need it, through an IV or as a pill or liquid. When you tellyour health care provider that you are having pain, he or she will give you the proper pain medicine. Medicine that numbs an area You may be given pain medicine that numbs an area (local anesthetic): As an injection near your painful area (local infiltration). As an injection near the nerve that provides feeling to a specific part of your body (peripheral nerve block). As an injection in your spine (spinal block). Through a local anesthetic reservoir pump. For this method, one or more catheters are inserted intoyour incision at the end of your procedure. These catheters are connected to a device that is filled with a non-narcotic pain medicine. Medicine gradually empties into your incision area over the next several days. Continuous epidural pain control With this method, you receive pain medicine through a small, thin tube (catheter) that is inserted into your back, near your spinal cord. Medicine flows through the catheter to lessen pain in areas of your body that are below the catheter. The catheter is usually put into the back shortly before surgery. It may be left in until you can eat, take medicine by mouth, pass urine, and have a bowel movement. This method may be recommended if you are having surgery on your abdomen, hip area, or legs. This method of pain relief may help you heal faster because you may be able to do these things sooner: Regain normal bowel and bladder function. Return to eating. Get up and walk. IV patient-controlled analgesia (DRY CELL BATTERY ASSEMBLER) pump With this method, you receive pain medicine through an IV that is connected to a DRY CELL BATTERY ASSEMBLER pump. The DRY CELL BATTERY ASSEMBLER pump gives you a specific amount of medicine when you push a button. This lets you control how much medicine you receive. You are the only person who should push this button. The pump is set up so that you cannot accidentally give yourself too much medicine. You will be able to start using your DRY CELL BATTERY ASSEMBLER pump in the recovery room after your procedure. Tell your health care provider: If you are having too much pain. If you cannot push the button. If you are feeling too sleepy or nauseous. Other pain control methods Other methods of pain relief after surgery include: Heat and cold therapy. Massage. Topical analgesics. These are patches, creams, and gels that can be applied on the skin. Steroid medicines. These medicines may be given to lessen swelling. Physical therapy. A physical therapist will work with you to meet goals, such as feeling and functioning better. Physical therapy usually includes specific exercises that are tailored to your needs. Transcutaneous electrical nerve stimulation (TENS). This method sends electrical signals through the skin to interrupt pain signals. Cognitive behavioral therapy (CBT). This therapy helps you learn coping skills for dealing with pain. What are some questions to ask my health care provider? What pain relief options would be best for me? What are the risks of each option? What are the benefits of each option? How long will I need pain relief after surgery? Summary A plan to manage pain that you may have before surgery (preoperative) and after surgery (postoperative) is an important part of your overall care. Pain management options include medicines and non-medical therapies, such as physical therapy, massage, and heat or cold therapy. Pain management medicines include opioids and non-narcotic medicines such as NSAIDs, steroids, or local anesthetics. Pain medicines can have side effects. Side effects of opioids include constipation, nausea, excessive sleepiness, and risk of addiction. Your health care provider will work with you to prevent or manage these side effects and risks. This information is not intended to replace advice given to you by your health care provider. Make sure you discuss any questions you have with your health care provider. Document Released: 05/07/2003 Document Revised: 02/17/2018 Document Reviewed: 05/27/2017 [employer] Patient Education 2020 [employer] Additional Information VACCINATE! IT SAVES LIVES! Members of the community who have not yet received the COVID-19 vaccine and would like to receive it can visit one of [facility] vaccine clinics. There are many vaccine clinic locations within the [facility]. For locations and available times, please visit [email or web address] It is important to note that some COVID mobile vaccine clinics are held outdoors and may be canceled in rainy or stormy conditions. To learn more about pediatric vaccinations (ages 5-11), we invite you to visit the [facility] webpage. https://www.[email or web address]/pages/[email or web address]-[email or web address] stions.htmlTo learn more about the COVID-19 vaccine, we invite you to visit the CDC website for a list of frequently asked questions.https://www.cdc.gov/coronavirus/2019-ncov/vaccines/faq.html [facility] Patient Portal Access Instructions: Stay connected with your healthcare team and access your personal medical information anytime with the [facility] Patient Portal. Please follow the directions below to create your [facility] account: 1.Access the email account you provided upon registration to the hospital/physician office.2.Look for an invitation email from [facility].3.Open the email and access the invitation link: AcceptInvitation to [facility].4.Fill in the required delgado to create your account. To access your account, visit [employer]. Click the blue button labeled Access Patient Portal and then log in with the username and password that you created in the steps above. You will be able to view your test results, lab results, a summary of your visits, upcoming appointments and more. There is also a convenient messaging option where you can send secure messages to your p rovider. In addition, you will have the ability to download any documents or summaries to your computer and/or send the information securely to a physician. Remember that your healthcare information is confidential, so carefully consider who you will allowto register on the [facility] Patient Portal for access to your information. You can also access the [facility] Patient Portal on the [facility] sara. Simply click on Patient Portal and then log into your account. If you would like to receive a full copy of your medical records, please contact the [facility] Medical Records Department by calling [phone], Tuesday through Tuesday between 8 a.m. and 4:30 p.m. HOW TO SAFELY DISPOSE OF PRESCRIPTION MEDICATIONS Please use one of the following methods to safely dispose of your unused medications. 1.Use a drug disposal kit: the drug disposal pouch allows you to safely discard your old and unuseddrugs. Ask your nurse to give you one when you are discharged.2.Visit a local take-back location: Many local pharmacies and police departments have programs that collect old and unwanted prescriptiondrugs. Call your local pharmacy or go to http://JEDI MIND.FusionAds/1Z3Yz8v to find one close to you.3.Make use of household items: Use cat litter or old coffee grounds to dispose medications if other options arenot available. Mix your drugs with these household products, seal them in an airtight container andthrow it into the garbage. Call [facility]: [phone] to be sure your drugs can be disposed of in this way. Some medicines may require a different approach.4.Never flush your medications down the toilet. IF YOU HAVE BEEN PRESCRIBED AN OPIOID FOR PAIN If you have been prescribed an opioid (such as hydrocodone, oxycodone or morphine), it is critical to understand the possible side effects and risks of opioid pain medications. Even when taken as directed, opioids can have several side effects including: Tolerance, meaning you might need to take more of a medication for the same pain relief. Nausea, vomiting and/or constipation. Sleepiness, dizziness, dry mouth, confusion, depression or itching. Physical dependence, meaning you have withdrawal symptoms when a medication is stopped, can develop within a few days. KNOW YOUR RESPONSIBILITIES It is important to know exactly how much and how often to take the opioid pain medications you are prescribed. Never take opioids in higher amounts or more often than prescribed. Do not combine opioids with alcohol or other drugs that cause drowsiness, such as benzodiazepines, also known as benzos, including diazepam and alprazolam, muscle relaxants or sleep aids. Never sell or share prescription opioids. This is illegal. Store opioids in a secure place and out of reach of others (including children, family, friends and visitors). The last page of this document has been signed and retained as a CHART COPY. Signatures Patient Education Materials Pain Relief Before and After Surgery Medication Leaflets My discharge plan and instructions have been reviewed and explained to me and I,TERENCE VALDIVIA understand my current condition and have read and understand these discharge instructions. I have received a written copy of the plan/instructions. If I have questions, I am aware that I should contact my d octor. 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 The following is importantdischarge information regarding your hospital visit. Your Care Team SAY LIM MD Your Diagnosis Brain malignancy What to do next Instructions From Your Doctor Sutures are to be removed on 02/13/24 Shampoo hair at least daily, including incision. Use baby shampoo or Aveeno; gently cleanse incision with finger pads, then apply clean gauze headwrap. Change gauze dressing over incision daily. Must remain covered until further instruction is given at post-op visit. Avoid any strenuous activity; nothing more strenuous than making a sandwich. No heavy house or yardwork. Check blood sugar AC and HS. Please call Dr. Tineo's office with any questions or concerns prior to scheduled visit. If your surgical incision sites become red, swollen, painful, open and/or there is drainage around site or if you develop a fever/chills- Contact neurosurgery office immediately. The clinician oncology should be in contacting with you to assist with scheduling any appointments and to make sure you are on track with your follow up appointments. Radiation therapy should also be contacting your to schedule an appointment, once your incision is healed. Follow Up Appointments Follow Up with BHARATI MOYA DO Where:[address] [place] [address] Hematology [place] [address]- [phone] Additional Information: The Oncology office will call to schedule an appointment with either Dr. Moya or Dr. Martinez. If you have not heard from them by the end of next week, please call them to schedule an appointment. Follow Up with ROSEMARIE TINEO MD, Neurosurgery Where:[address] [place] [address]- [phone] Additional Information: Follow up after discharged from rehab. Please call the office to schedule afollow up appointment once you know the date of discharge from rehab. Follow Up with SAY LIM MD When:Within 1-2 days [facility] [address] [address] [place] [address]- Additional Information: Please call the office to schedule a hospital follow-up appointment. The Following Activity and Diet Have Been Ordered for You Transfer of Care Activity - Ordered -- Activity As Tolerated, 02/03/24 15:14:00 EST Transfer of Care Diet - Ordered -- Type of Diet: Regular Diet, 02/03/24 15:14:00 EST The Following Equipment Has Been Ordered for You Discharge Home Equipment Transfer of Care Wound Care - Ordered -- Remove craniotomy suture on 02/13/24., 02/03/24 15:14:00 EST Transfer of Care Wound Care - Ordered -- Craniotomy incision to be cleansed daily in shower with baby shampoo or mild soap. Gauze head wrap to be applied and changed daily., 02/03/24 15:14:00 EST The Following Treatments Have Been Ordered for You Discharge Labs No qualifying data available. Discharge Radiology No qualifying data available. 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., 02/03/24 15:14:00 EST Post Acute Orders Transfer of Care Admission Level of Care - Ordered -- Level of Care Acute Rehab, 02/03/24 15:15:04 EST Transfer of Care Code Status - Ordered -- Full Code, Constant Order Transfer of Care Communication Order - Ordered -- Expect less than 30 day stay., 02/03/24 15:15:04 EST Transfer of Care Orders Electronically Signed By - Ordered -- 02/03/24 15:14:00 EST, ROSEMARIE TINEO MD Transfer of Care Prognosis - Ordered -- Good, Patient Aware: Yes Transfer of Care Rehab Potential - Ordered -- Rehab potential good, 02/03/24 15:15:04 EST Someone Will Contact You Regarding These Home Health Referrals No home referrals have been ordered for you. No one will call you. Allergies Bee Stings Unknown Latex Unknown codeine Unknown tetanus immune globulin Unknown Medications Please ask your primary doctor or pharmacist before taking any other medication not listed, including over the counter drugs, herbal medications, vitamins and or supplements as they may interact withyour home medications. What How Much When Instructions Last Dose New acetaminophen (Tylenol 325 mg oral capsule) 650 Milligram by mouth Every 4 hours as needed for Pain, scale 1-3 New dexAMETHasone (dexAMETHasone 2 mg oral tablet) 1 tab(s) by mouth Two (2) times a day 2 mg BID today and tomorrow then decrease to 1mg BID x 2 days, then 1mg daily x 2 days and stop. New docusate (Colace 100 mg oral capsule) 1 cap by mouth Two (2) times a day as needed for Constipation New insulin glargine (Lantus 100 units/ mL10 ml vial solution) 30 unit(s) Subcutaneous (INT) Once a day (in the morning) New insulin lispro (HumaLOG) (HumaLOG 100 units/ mL subcutaneous solution) Give 0-10 units/dose Subcutaneous Three (3) times a day before meals New insulin lispro (HumaLOG) (HumaLOG 100 units/ mL subcutaneous solution) 10 unit(s) Subcutaneous Three (3) times a day before meals New levETIRAcetam (levETIRAcetam 500 mg oral tablet) 1 tab(s) by mouth Every 12 hours New pantoprazole (Protonix 40 mg oral enteric coated tablet) 1 tab(s) by mouth Once a day before a meal Changed levothyroxine (levothyroxine 112 mcg (0.112 mg) oral tablet) 1 tab(s) by mouth Once a day Unchanged losartan (losartan 100 mg oral tablet) 1 tab(s) by mouth Every day Unchanged solifenacin (solifenacin 10 mg oral tablet) 1 tab(s) by mouth Once a day Unchanged venlafaxine (venlafaxine 75 mg oral tablet) 1 tab(s) by mouth Once a day Duration: 30 Days What How Much When Comments Stop Taking semaglutide (Ozempic 2 mg/ 3 mL (0.25 mg or 0.5 mg dose) subcutaneous solution) 0.25 Milligram Subcutaneous Every week rotate injection sites Please take this list to your next doctor s visit. Bring all medications you take, including over the counter medications, herbals and other supplements with you to your doctor s visit. Patients and families are reminded to discard old lists and to update any records with all medication providers or retail pharmacies. Education Materials Pain Relief Before and After Surgery Pain relief is an important part of your overall care before, during, and after surgery. You and your health care provider will work together to make a plan to manage pain that you have before surgery (preoperative) and after surgery (postoperative). Addressing pain before surgery lessens the pain that you will have after surgery. Make sure that you fully understand and agree with your pain relief plan. If you have questions or concerns, it is important to discuss them with your health care provider. If you have pain that is not controlled by medicine, tell your health care provider. Severe pain after surgery may: Prevent sleep. Decrease your ability to breathe deeply and to cough. This can result in pneumonia or upper airway infections. Cause your heart to beat more quickly. Cause your blood pressure to be higher. Increase your risk for stomach and digestive problems. Slow down wound healing. Lead to depression, anxiety, and feelings of helplessness. Your health care provider may use more than one method at a time to help relieve your pain. Using this approach may allow you to eat, move around, and possibly leave the hospital sooner. What are options for managing pain before and after surgery? Oral pain medicines Pain medicines taken by mouth (orally) include: Non-narcotic medicines: ? Acetaminophen. ? NSAIDs, such as ibuprofen and naproxen. Muscle relaxants. These may relieve pain caused by muscle spasms. Anticonvulsants. These medicines are usually used to treat seizures. They may help to lessen nerve pain. Opioids. These medicines relieve pain by binding to pain receptors in the brain and spinal cord (narcotic pain medicines). Opioids may help relieve short-term (acute) postoperative pain that is moderate to moderately severe. ? Opioids are often combined with non-narcotic medicines to improve pain relief, lower the risk of side effects, and lower the chance of addiction. ? To help prevent addiction, opioids are given for short periods of time in careful doses. If you follow instructions from your health care provider and you do not have a history of substance abuse, your risk of becoming addicted to opioids is low. Some of these medicines may be available in injectable form. They may be given through an IV if youare unable to eat or drink. As-needed pain control You can receive pain medicine when you need it, through an IV or as a pill or liquid. When you tellyour health care provider that you are having pain, he or she will give you the proper pain medicine. Medicine that numbs an area You may be given pain medicine that numbs an area (local anesthetic): As an injection near your painful area (local infiltration). As an injection near the nerve that provides feeling to a specific part of your body (peripheral nerve block). As an injection in your spine (spinal block). Through a local anesthetic reservoir pump. For this method, one or more catheters are inserted intoyour incision at the end of your procedure. These catheters are connected to a device that is filled with a non-narcotic pain medicine. Medicine gradually empties into your incision area over the next several days. Continuous epidural pain control With this method, you receive pain medicine through a small, thin tube (catheter) that is inserted into your back, near your spinal cord. Medicine flows through the catheter to lessen pain in areas of your body that are below the catheter. The catheter is usually put into the back shortly before surgery. It may be left in until you can eat, take medicine by mouth, pass urine, and have a bowel movement. This method may be recommended if you are having surgery on your abdomen, hip area, or legs. This method of pain relief may help you heal faster because you may be able to do these things sooner: Regain normal bowel and bladder function. Return to eating. Get up and walk. IV patient-controlled analgesia (DRY CELL BATTERY ASSEMBLER) pump With this method, you receive pain medicine through an IV that is connected to a DRY CELL BATTERY ASSEMBLER pump. The DRY CELL BATTERY ASSEMBLER pump gives you a specific amount of medicine when you push a button. This lets you control how much medicine you receive. You are the only person who should push this button. The pump is set up so that you cannot accidentally give yourself too much medicine. You will be able to start using your DRY CELL BATTERY ASSEMBLER pump in the recovery room after your procedure. Tell your health care provider: If you are having too much pain. If you cannot push the button. If you are feeling too sleepy or nauseous. Other pain control methods Other methods of pain relief after surgery include: Heat and cold therapy. Massage. Topical analgesics. These are patches, creams, and gels that can be applied on the skin. Steroid medicines. These medicines may be given to lessen swelling. Physical therapy. A physical therapist will work with you to meet goals, such as feeling and functioning better. Physical therapy usually includes specific exercises that are tailored to your needs. Transcutaneous electrical nerve stimulation (TENS). This method sends electrical signals through the skin to interrupt pain signals. Cognitive behavioral therapy (CBT). This therapy helps you learn coping skills for dealing with pain. What are some questions to ask my health care provider? What pain relief options would be best for me? What are the risks of each option? What are the benefits of each option? How long will I need pain relief after surgery? Summary A plan to manage pain that you may have before surgery (preoperative) and after surgery (postoperative) is an important part of your overall care. Pain management options include medicines and non-medical therapies, such as physical therapy, massage, and heat or cold therapy. Pain management medicines include opioids and non-narcotic medicines such as NSAIDs, steroids, or local anesthetics. Pain medicines can have side effects. Side effects of opioids include constipation, nausea, excessive sleepiness, and risk of addiction. Your health care provider will work with you to prevent or manage these side effects and risks. This information is not intended to replace advice given to you by your health care provider. Make sure you discuss any questions you have with your health care provider. Document Released: 05/07/2003 Document Revised: 02/17/2018 Document Reviewed: 05/27/2017 [employer] Patient Education 2020 [employer] Additional Information VACCINATE! IT SAVES LIVES! Members of the community who have not yet received the COVID-19 vaccine and would like to receive it can visit one of [facility] vaccine clinics. There are many vaccine clinic locations within the [facility]. For locations and available times, please visit [email or web address] It is important to note that some COVID mobile vaccine clinics are held outdoors and may be canceled in rainy or stormy conditions. To learn more about pediatric vaccinations (ages 5-11), we invite you to visit the [facility] webpage. [email or web address]/pages/[email or web address]-[email or web address] stions.htmlTo learn more about the COVID-19 vaccine, we invite you to visit the CDC website for a list of frequently asked questions.https://www.cdc.gov/coronavirus/2019-ncov/vaccines/faq.html [facility] Patient Portal Access Instructions: Stay connected with your healthcare team and access your personal medical information anytime with the [facility] Patient Portal. Please follow the directions below to create your [facility] account: 1.Access the email account you provided upon registration to the hospital/physician office.2.Look for an invitation email from [facility].3.Open the email and access the invitation link: AcceptInvitation to [facility].4.Fill in the required delgado to create your account. To access your account, visit [employer]. Click the blue button labeled Access Patient Portal and then log in with the username and password that you created in the steps above. You will be able to view your test results, lab results, a summary of your visits, upcoming appointments and more. There is also a convenient messaging option where you can send secure messages to your p rovider. In addition, you will have the ability to download any documents or summaries to your computer and/or send the information securely to a physician. Remember that your healthcare information is confidential, so carefully consider who you will allowto register on the [employer] Patient Portal for access to your information. You can also access the [place] [employer] Patient Portal on the [place] [employer] sara. Simply click on Patient Portal and then log into your account. If you would like to receive a full copy of your medical records, please contact the [facility] Medical Records Department by calling [phone], Tuesday through Tuesday between 8 a.m. and 4:30 p.m. HOW TO SAFELY DISPOSE OF PRESCRIPTION MEDICATIONS Please use one of the following methods to safely dispose of your unused medications. 1.Use a drug disposal kit: the drug disposal pouch allows you to safely discard your old and unuseddrugs. Ask your nurse to give you one when you are discharged.2.Visit a local take-back location: Many local pharmacies and police departments have programs that collect old and unwanted prescriptiondrugs. Call your local pharmacy or go to http://JEDI MIND.FusionAds/7D4Qr0h to find one close to you.3.Make use of household items: Use cat litter or old coffee grounds to dispose medications if other options arenot available. Mix your drugs with these household products, seal them in an airtight container andthrow it into the garbage. Call [facility]: [phone] to be sure your drugs can be disposed of in this way. Some medicines may require a different approach.4.Never flush your medications down the toilet. IF YOU HAVE BEEN PRESCRIBED AN OPIOID FOR PAIN If you have been prescribed an opioid (such as hydrocodone, oxycodone or morphine), it is critical to understand the possible side effects and risks of opioid pain medications. Even when taken as directed, opioids can have several side effects including: Tolerance, meaning you might need to take more of a medication for the same pain relief. Nausea, vomiting and/or constipation. Sleepiness, dizziness, dry mouth, confusion, depression or itching. Physical dependence, meaning you have withdrawal symptoms when a medication is stopped, can develop within a few days. KNOW YOUR RESPONSIBILITIES It is important to know exactly how much and how often to take the opioid pain medications you are prescribed. Never take opioids in higher amounts or more often than prescribed. Do not combine opioids with alcohol or other drugs that cause drowsiness, such as benzodiazepines, also known as benzos, including diazepam and alprazolam, muscle relaxants or sleep aids. Never sell or share prescription opioids. This is illegal. Store opioids in a secure place and out of reach of others (including children, family, friends and visitors). The last page of this document has been signed and retained as a CHART COPY. Signatures Patient Education Materials Pain Relief Before and After Surgery Medication Leaflets My discharge plan and instructions have been reviewed and explained to me and I,TERENCE VALDIVIA understand my current condition and have read and understand these discharge instructions. I have received a written copy of the plan/instructions. If I have questions, I am aware that I should contact my d octor. Patient/Radar Repairer Signature: Date/Time: Relationship to Patient: Witness Name/Signature: Date/Time[id number] Discharge instructions Patient Education 02/03/2024 13:00:16 Pain Relief Before and After Surgery Pain Relief Before and After Surgery Pain relief is an important part of your overall care before, during, and after surgery. You and your health care provider will work together to make a plan to manage pain that you have before surgery (preoperative) and after surgery (postoperative). Addressing pain before surgery lessens the pain that you will have after surgery. Make sure that you fully understand and agree with your pain relief plan. If you have questions or concerns, it is important to discuss them with your health care provider. If you have pain that is not controlled by medicine, tell your health care provider. Severe pain after surgery may: Prevent sleep. Decrease your ability to breathe deeply and to cough. This can result in pneumonia or upper airway infections. Cause your heart to beat more quickly. Cause your blood pressure to be higher. Increase your risk for stomach and digestive problems. Slow down wound healing. Lead to depression, anxiety, and feelings of helplessness. Your health care provider may use more than one method at a time to help relieve your pain. Using this approach may allow you to eat, move around, and possibly leave the hospital sooner. What are options for managing pain before and after surgery? Oral pain medicines Pain medicines taken by mouth (orally) include: Non-narcotic medicines: ?Acetaminophen. ?NSAIDs, such as ibuprofen and naproxen. Muscle relaxants. These may relieve pain caused by muscle spasms. Anticonvulsants. These medicines are usually used to treat seizures. They may help to lessen nerve pain. Opioids. These medicines relieve pain by binding to pain receptors in the brain and spinal cord (narcotic pain medicines). Opioids may help relieve short-term (acute) postoperative pain that is moderate to moderately severe. ?Opioids are often combined with non-narcotic medicines to improve pain relief, lower the risk of side effects, and lower the chance of addiction. ?To help prevent addiction, opioids are given for short periods of time in careful doses. If you follow instructions from your health care provider and you do not have a history of substance abuse, your risk of becoming addicted to opioids is low. Some of these medicines may be available in injectable form. They may be given through an IV if youare unable to eat or drink. As-needed pain control You can receive pain medicine when you need it, through an IV or as a pill or liquid. When you tellyour health care provider that you are having pain, he or she will give you the proper pain medicine. Medicine that numbs an area You may be given pain medicine that numbs an area (local anesthetic): As an injection near your painful area (local infiltration). As an injection near the nerve that provides feeling to a specific part of your body (peripheral nerve block). As an injection in your spine (spinal block). Through a local anesthetic reservoir pump. For this method, one or more catheters are inserted intoyour incision at the end of your procedure. These catheters are connected to a device that is filled with a non-narcotic pain medicine. Medicine gradually empties into your incision area over the next several days. Continuous epidural pain control With this method, you receive pain medicine through a small, thin tube (catheter) that is inserted into your back, near your spinal cord. Medicine flows through the catheter to lessen pain in areas of your body that are below the catheter. The catheter is usually put into the back shortly before surgery. It may be left in until you can eat, take medicine by mouth, pass urine, and have a bowel movement. This method may be recommended if you are having surgery on your abdomen, hip area, or legs. This method of pain relief may help you heal faster because you may be able to do these things sooner: Regain normal bowel and bladder function. Return to eating. Get up and walk. IV patient-controlled analgesia (DRY CELL BATTERY ASSEMBLER) pump With this method, you receive pain medicine through an IV that is connected to a DRY CELL BATTERY ASSEMBLER pump. The DRY CELL BATTERY ASSEMBLER pump gives you a specific amount of medicine when you push a button. This lets you control how much medicine you receive. You are the only person who should push this button. The pump is set up so that you cannot accidentally give yourself too much medicine. You will be able to start using your DRY CELL BATTERY ASSEMBLER pump in the recovery room after your procedure. Tell your health care provider: If you are having too much pain. If you cannot push the button. If you are feeling too sleepy or nauseous. Other pain control methods Other methods of pain relief after surgery include: Heat and cold therapy. Massage. Topical analgesics. These are patches, creams, and gels that can be applied on the skin. Steroid medicines. These medicines may be given to lessen swelling. Physical therapy. A physical therapist will work with you to meet goals, such as feeling and functioning better. Physical therapy usually includes specific exercises that are tailored to your needs. Transcutaneous electrical nerve stimulation (TENS). This method sends electrical signals through the skin to interrupt pain signals. Cognitive behavioral therapy (CBT). This therapy helps you learn coping skills for dealing with pain. What are some questions to ask my health care provider? What pain relief options would be best for me? What are the risks of each option? What are the benefits of each option? How long will I need pain relief after surgery? Summary A plan to manage pain that you may have before surgery (preoperative) and after surgery (postoperative) is an important part of your overall care. Pain management options include medicines and non-medical therapies, such as physical therapy, massage, and heat or cold therapy. Pain management medicines include opioids and non-narcotic medicines such as NSAIDs, steroids, or local anesthetics. Pain medicines can have side effects. Side effects of opioids include constipation, nausea, excessive sleepiness, and risk of addiction. Your health care provider will work with you to prevent or manage these side effects and risks. This information is not intended to replace advice given to you by your health care provider. Make sure you discuss any questions you have with your health care provider. Document Released: 05/07/2003 Document Revised: 02/17/2018 Document Reviewed: 05/27/2017 [employer] Patient Education 2020 [employer]. Follow Up Care 01/25/2024 05:36:25 With:[facility], [facility], Address:Unknown When:1-2 days With:BHARATI MOYA DO Address: [address] [place] [address] Hematology [place] [address]- [phone] When: Unknown Comments:The Oncology office will call to schedule an appointment with either Dr. Moya or Dr. Martinez. If you have not heard from them by the end of next week, please call them to schedule an appointment. With:ROSEMARIE TINEO MD, Neurosurgery Address: [address] [place] [address] [address] [place] [address]- [phone] When: Unknown Comments:Follow up after discharged from rehab. Please call the office to schedule a follow up appointment once you know the date of discharge from rehab. With:SAY LIM MD Address: [facility] [place] [address]- When:1-2 days Comments:Please call the office to schedule a hospital follow-up appointment. 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 She apparently was trying get up to go to therestroom, and felt as though she could not bear weight on her legs and ended up sliding down the side of the bed striking her head on the wooden bed frame. During her workup at [facility], she had a CT of the head, which demonstrated a brain mass in the right parietal occipital region. Due tothese findings, she was transferred to [facility] for evaluation by neurosurgery. The patient had recently been seen by her PCP, due to recurrent falls and left- sided weakness. According to documentation, she had been falling almost daily throughout the month of November. She was evaluated by physical therapy and was noted to have left-sided weakness. The PCP ordered lab work andan MRI of the brain due to the left hemiparesis. After one of her falls, she had a CT of the head at [facility] which demonstrated 3.6 x 2.8 cm enhancing mass in the posterior aspect of the right parietal/occipital lobes with surrounding mass effect. Due to these findings, her PCP reviewed the results with her, and ordered PT, a referral to the neurosurgery office, and an MRI of the brain, as well as a PET scan and CT of the chest, abdomen, and pelvis. Body CTs were completed on 12/29/2023. She also had an MRI of the brain on 01/02/2024 and a PET scan on 01/03/2024. According to the history and physical, the PET scan report indicated FDG concentration in the right parietal lobe concerning for neoplasm. No other quantitative hypermetabolic abnormalities were noted. The patient was apparently going to continue outpatient workup, but due to her fall at home and inability to mobilize, she was brought to [facility] as mentioned above and then transferred to [facility]. She was given dexamethasone 10 mg x 1 and then scheduled 4 mg every 6 hours. She remained on the dexamethasone. She has had no known seizure activity, and therefore will not be started on Keppra. She had an MRI of the brain which demonstrated the right parietal/occipital lesion with irregular central enhancement and necrosis. The findings were concerning for malignancy. The MRI findings have been discussed with the patient, and her family. Surgical debulking of the brain lesion was recommended. Patient and her family agreed. She was taken to the operating room on 01/30/24 for craniotomy for debulking of the brain mass and biopsy. Pathology results are not finalized, but the preliminary report demonstrates a glioma. These results were discussed with the patient and her family at the bedside today. It was explained to her, thatwe will need to await the finalization of the path, as it could be a glioblastoma versus oligodendro glioma. She has been slowly weaned down from the dexamethasone. Today she was decreased to 2 mg twice daily. She will be weaned over the next several days, until it is stopped. She remains on Keppra 500 mg twice daily for seizure prophylaxis. Overall, she has done fairly well postoperatively. She has recovered well from surgery. She has been participating with physical and Occupational Therapy. She states her left side does feel slightly improved compared to preoperatively. She states she has more coordination with her left hand. She remains extremely weak in the left lower extremity, and requires assistance by nursing as well as a walker to transfer from the chair to the bed and to attempt to mobilize. On exam, she is awake, alert, and oriented x 3. She is very sharp and does not appear to have any cognitive deficits. Her right upper and lower extremity are strong. Her left upper and lower extremities are strong when testing her strength, but she does have decreased coordination and has difficulty mobilizing, as she states my left side will not do what my brain is telling it to do. She deniesany numbness or tingling. Light touch sensation is intact. Incision is healing well. There is no erythema or drainage noted. She is eating well. Tolerating diet well. Voiding without difficulty. Denies any nausea or vomiting. No headaches. The patient's daughter, , and [id number] have been kept well-informed in regards to the MRI results, surgical procedure, and postoperative care. They state understanding of all the above. The oncology STEEL PLACER did speak with the patient today, and explained that an appointment would be provided for her to follow-up with oncology. The oncology office will call her [id number] per the patient's request, with that appointment information. She will follow-up with Dr. Tineo once she has been discharged from the rehab facility. She will follow-up with radiation therapy, once that she is able to start radiation treatment afterher incision is healed. Craniotomy sutures are to be removed on 02/13/2024. The facility is provided with the name and phone number of the physicians listed above. They are tocall with any questions or concerns. Her discharge instructions and restrictions are provided for the facility. Allergies Bee Stings Unknown Latex Unknown codeine Unknown tetanus immune globulin Unknown Procedures Right parietal craniotomy for debulking of tumor Consults Consult to Physician - Ordered -- 01/25/24 13:51:00 EST, HOSPITALISTKIMBERLYN (For Consultation Assignment Only NO other Orders), Routine, follow medically, Follow medically, medical clearance for OR Imaging Results and Diagnostics MRI Brain w/ + w/o Contrast Result Date: January 31, 2024 Verified By: IRAJ GENAO MD CLINICAL STATEMENT: IMPRESSION: Interval resection of the right parietooccipital mass. No postsurgicalcomplication. MRI Brain w/ Contrast Result Date: January 30, 2024 Verified By: IRAJ GENAO MD CLINICAL STATEMENT: IMPRESSION: Right parietal/occipital lobe mass with surrounding edema. CT Angiography Head w/ Contrast Result Date: January 28, 2024 Verified By: MAURO POWER DO CLINICAL STATEMENT: IMPRESSION: 1. Right parietal rim enhancing mass lesion appears supplied via distalcortical branches arising proximally from the right anterior cerebral arteryand likely also the right posterior cerebral artery.2. No evidence of large vessel occlusion or significant intracranialatherosclerotic disease resulting in flow limiting stenosis. 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 MRI Brain w/ Contrast Result Date: January 26, 2024 Verified By: JOSE BOWMAN MD CLINICAL STATEMENT: IMPRESSION: MR of the brain obtained for surgical planning Objective Vitals and Measurements T: 36.9 C (Oral) TMIN: 36.5 C (Oral) TMAX: 36.9 C (Oral) HR: 66 RR: 18 BP: 149/61 SpO2: 95% Weight Dosing Weight: 81.2 kg (01/30/24) Code Status Code Status - Ordered -- 01/25/24 11:33:00 EST, Full Code, Constant Order Admission Date 01/25/24 Discharge Date 02/03/2024 Patient Instructions Sutures are to be removed on 02/13/24 Shampoo hair at least daily, including incision. Use baby shampoo or Aveeno; gently cleanse incision with finger pads, then apply clean gauze headwrap. Change gauze dressing over incision daily. Must remain covered until further instruction is given at post-op visit. Avoid any strenuous activity; nothing more strenuous than making a sandwich. No heavy house or yardwork. Please call Dr. Tineo's office with any questions or concerns prior to scheduled visit. If your surgical incision sites become red, swollen, painful, open and/or there is drainage around site or if you develop a fever/chills- Contact neurosurgery office immediately. The clinician oncology should be in contacting with you to assist with scheduling any appointments and to make sure you are on track with your follow up appointments. Radiation therapy should also be contacting your to schedule an appointment, once your incision is healed. Medications Changed levothyroxine (levothyroxine 112 mcg (0.112 mg) oral tablet)1 tab(s) by mouth once a day. Unchanged losartan (losartan 100 mg oral tablet)1 tab(s) by mouth every day. semaglutide (Ozempic 2 mg/3 mL (0.25 mg or 0.5 mg dose) subcutaneous solution)0.25 Milligram Subcutaneous every week. rotate injection sites. solifenacin (solifenacin 10 mg oral tablet)1 tab(s) by mouth once a day. venlafaxine (venlafaxine 75 mg oral tablet)1 tab(s) by mouth once a day for 30 Days. Follow Up Follow Up with BHARATI MOYA DO Where:[address] [place] [address] Hematology [place] [address]- [phone] Additional Information: The Oncology office will call to schedule an appointment with either Dr. Moya or Dr. Martinez. If you have not heard from them by the end of next week, please call them to schedule an appointment. Follow Up with ROSEMARIE TINEO MD, Neurosurgery Where:[address] [place] [address]- [phone] Additional Information: Follow up after discharged from rehab. Please call the office to schedule afollow up appointment once you know the date of discharge from rehab. Follow Up with SAY LIM MD When:Within 1-2 days Where:[facility] [id number] [place] [address]- Additional Information: Please call the office to schedule a hospital follow-up appointment. Follow Up Appointments See above Follow Up Labs/Studies Discharge Labs No Follow-up Labs Discharge Studies No Follow-up Studies Discharge Diet Resume home diet Discharge Activity As tolerated with assistance and with a walker. Condition on Discharge Stable Readmission Risk/Palliative Score No qualifying data available. Discharge Disposition Elia swing bed unit Information Provided To Patient and Rehab Time Spent 25 min Digitally Signed by WANG CORONADO on 02/03/2024 03:52 PM Digitally Signed by ROSEMARIE TINEO MD on 02/03/2024 04:06 PM [id number] Note Date of Service 02/02/2024 This is a split/shared visit with Dr. 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 POD #3 73-year-old female who presented initially to [facility] ED on 01/25/2024 with complaints of multiple falls, difficulty standing up. During her workup at [facility], had a noncontrasted head CT which demonstrated a brain mass in the right parietal/occipital region. Patient was then transferred to [facility] for evaluation by neurosurgery. She had recently been seen by her primary care physician due to recurrent falls and left-sided weakness; falling almost daily. MRI of the brain was ordered, but prior to completion patient was evaluated after a fall in [facility] ED. At that time she had a noncontrasted head CT which demonstrated 3.6 x 2.8 cm enhancing mass in the posterior aspect of the right parietal/occipital lobes with surrounding mass effect. Due to these findings, patient was referred on an outpatient basis to neurosurgery office, and brain MRI, PET scan, and CT chest abdomen, and pelvis with were ordered. Patient did havean MRI of the brain on 01/02/2024, and a PET scan on 01/03/2024. According to H&P, PET scan report indicated FDG concentration in the right parietal lobe, concerning for neoplasm. No other quantitative hypermetabolic abnormalities noted. Prior to scheduled follow-up, patient continue to follow athome, became progressively weaker, and was taken to [facility] ED for further evaluation. In ED, patient was given 10 mg of dexamethasone, and then scheduled on 4 mg every 6 hours. Has had no documented/witnessed seizure activity, and did not require Keppra pre-operatively. MRI of the brain completed here demonstrated the right parietal/occipital lesion with irregular central enhancement and necrosis. Findings concerning for malignancy. This was reviewed by Dr. 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 In addition, noted heavy involvement of the cortex and gyri are widely expanded. The deep white matter reveals heterogeneous portions of the mass. Dr. Tineo met with the patient and family at bedside, reviewed imaging, and recommendation toproceed with surgical debulking. Patient and family were agreeable. Patient was taken to OR 01/30/2024 for right parietal craniotomy for debulking of tumor by Dr. Tineo; refer to operative note for details. Intra- operatively, a subgaleal drain was placed. Patient was returned to SICU for recovery and close post-op monitoring with frequent neuro checks. She wasplaced on Keppra post-operatively, 500mg BID. Continued on dexamethasone. Post-operatively, Patient continues to do well. At this point she is awaiting insurance approval totransfer to inpatient rehab. She is tolerating PO intake without complaints of nausea or vomiting. She voiding without difficulty, and is neurologically stable. She was evaluated OOB, sitting up in chair after working with PT. States she ambulated today out of room to the hallway; yesterday had just ambulated from bed to chair and bathroom in the room with PT. She reports still leans toward the left, but does feel this is not as bad as prior to surgery. 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 Reports mild head discomfort, though no actual headache. Subgaleal drain was discontinued 02/01/2024; prophylactic ATB stopped Objective Vitals and Measurements T: 36.6 C (Oral) TMIN: 36.3 C (Oral) TMAX: 36.9 C (Oral) HR: 56 RR: 18 BP: 120/70 SpO2: 96% Intake and Output 7AM Yesterday to 7AM Today Intake and Output (Last 24 hours) Intake Oral Intake 1000.00 Output Stool Count 0.00 Urine Count 4.00 Emesis Count 0.00 Total Summary Total Intake 1000.00 Total Output 0.00 Fluid Balance 1000.00 Physical Exam Patient is awake, alert, oriented, and conversant. Face symmetric. Tongue protrudes midline. Has some dysmetria with finger to nose testing on the left, though no pronator drift. She has strong hand grasps, and moves upper extremities well/fairly equal in strength. Sensation is intact in bilateral UE and LE. Has strong and equal strength of LEs. Abdomen is soft. BS present. States has had a BM since surgery. Passing flatus. Lungs are CTA. Respirations unlabored. Regular heart sounds/rhythm. Posterior cranial incision is well approximated with sutures intact. Has bilateral head clamp sites(used intra-operatively) with coretta intact. No significant swelling, redness, drainage or bleeding at sites. Weight Dosing Weight: 81.2 kg (01/30/24) Medications Medications (19) Active Scheduled: (11) dexamethasone 4 mg/1 mL solution 2 mg 0.5 mL, IV Push, TID heparin 5,000 units/mL (1 mL) vial 5,000 unit(s) 1 mL, Subcutaneous, q8h insulin glargine 30 unit(s) 0.3 mL, Subcutaneous (INT), qAM insulin lispro 100 units/mL Soln (3 mL) Give 0-10 units/dose, Subcutaneous, TIDAC insulin lispro 100 units/mL Soln (3 mL) 10 unit(s) 0.1 mL, Subcutaneous, TIDAC levETIRAcetam 500 mg tablet 500 mg 1 tab(s), Oral, q12h levothyroxine 112 mcg tablet 112 mcg 1 tab(s), Oral, qDay losartan 100 mg tablet 100 mg 1 tab(s), Oral, Daily oxybutynin 5 mg ER tablet 10 mg 2 tab(s), Oral, qDay pantoprazole 40 mg EC tablet 40 mg 1 tab(s), Oral, qDayAC venlafaxine 75 mg Tablet 75 mg 1 tab(s), Oral, qDay Continuous: (0) PRN: (8) acetaminophen 325 mg Tablet 650 mg 2 tab(s), Oral, q4h acetaminophen-HYDROcodone 325-5 mg tablet 1 tab(s), Oral, q4h dextrose 50% Solution Disp syringe 50 mL 12.5 gram(s) 25 mL, IV Push, AsDirected docusate sodium 100 mg Capsule 100 mg 1 cap(s), Oral, BID hydralazine 20 mg/mL (1mL) vial 10 mg 0.5 mL, IV Push, q2h HYDROmorphone 0.5 mg/0.5 mL syringe 0.2 mg 0.2 mL, IV Push, q2h magnesium hydroxide 8% Suspension 30 mL UD 30 mL, Oral, qHS ondansetron 2 mg/ 1 mL 2 mL INJ 4 mg 2 mL, IV Push, q4h Lab Results No 36 Hour Lab Data EKG No qualifying data available. 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 Tineo 01/30/24. --Awaiting final path from intra-operative biopsy. 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 Dr. Tineo discussed this with the patient. --Had routine post-op Brain MRI, reviewed by Dr. Tineo; refer to her addendum for details. --On Keppra post-operatively, 500mg BID for seizure prophylaxis. Continues without seizure activity/events. --Remains on dexamethasone, dose was decreased to 2mg TID 02/01/[address] Tineo instructions. Continue Protonix while on steroids. Will again decrease steroid dose to 2 mg BID tomorrow 02/03/2024. --Patient is neurologically stable and doing well post-op. Continue neuro checks q4 hours. --Subgaleal drain removed 02/01/24. Prophylactic ATB stopped. --Resumed Hep sq post-op 02/01/24 for DVT prophylaxis. Continue SCDs to B/L LE at all times while inbed. --Participating in PT/OT daily; continue treatments. OOB to chair TID with meals. Has been skilled for inpatient therapy. 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 preCERT started 02/01/24 --Encourage incentive spirometer, 10x per hour every hour while awake. --Cleanse incision daily with mild soap/water. Pat dry. Change DSD with 4x4 gauze laid over incision and secured gently with Kerlix head wrap. HTN, improved --Patient did initially require nicardipine drip post-op, however was able to be weaned down and off. Has been kept off. --BP stable, improved. Remains off nicardipine; hasn't required PRN antihypertensives > 24 hrs. --Maintain SBP < 140mmHg Please see Dr. Tineo's addendum for further details regarding neurosurgical assessment/plan of care. Digitally Signed by MADIHA ZHANG on 02/02/2024 02:30 PM [id number] Note Date of Service 01/31/2024 This is a split/shared visit with Dr. 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 POD #2 73-year-old female who presented initially to [facility] ED on 01/25/2024 with complaints of multiple falls, difficulty standing up. During her workup at [facility], had a noncontrasted head CT which demonstrated a brain mass in the right parietal/occipital region. Patient was then transferred to [facility] for evaluation by neurosurgery. She had recently been seen by her primary care physician due to recurrent falls and left-sided weakness; falling almost daily. MRI of the brain was ordered, but prior to completion patient was evaluated after a fall in [place] ED. At that time she had a noncontrasted head CT which demonstrated 3.6 x 2.8 cm enhancing mass in the posterior aspect of the right parietal/occipital lobes with surrounding mass effect. Due to these findings, patient was referred on an outpatient basis to neurosurgery office, and brain MRI, PET scan, and CT chest abdomen, and pelvis with were ordered. Patient did havean MRI of the brain on 01/02/2024, and a PET scan on 01/03/2024. According to H&P, PET scan report indicated FDG concentration in the right parietal lobe, concerning for neoplasm. No other quantitative hypermetabolic abnormalities noted. Prior to scheduled follow-up, patient continue to follow athome, became progressively weaker, and was taken to [place] ED for further evaluation. In ED, patient was given 10 mg of dexamethasone, and then scheduled on 4 mg every 6 hours. Has had no documented/witnessed seizure activity, and did not require Keppra pre-operatively. MRI of the brain completed here demonstrated the right parietal/occipital lesion with irregular central enhancement and necrosis. Findings concerning for malignancy. This was reviewed by Dr. 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 In addition, noted heavy involvement of the cortex and gyri are widely expanded. The deep white matter reveals heterogeneous portions of the mass. Dr. Tineo met with the patient and family at bedside, reviewed imaging, and recommendation toproceed with surgical debulking. Patient and family both agreeable. Surgery scheduled. Taken to OR 01/30/2024 for right parietal craniotomy for debulking of tumor by Dr. Tineo; refer to operative note for details. Intra-operatively, a subgaleal drain was placed. Patient was returned to SICU for recovery and close post-op monitoring with frequent neuro checks. She was placed on Keppra post- operatively, 500mg BID. Continued on dexamethasone 4mg TID. Post-operatively, patient is doing quite well. She is seen this morning, sitting up in bed. She is awake, alert, oriented, and conversant. States left UE feels similar to before surgery. Has left spatial dysfunction, which may be permanent. Reports mild headache this morning. Denies nausea or vomiting, tolerating PO diet. Participated with PT/OT yesterday. Was assisted out of bed to chair, tolerated sitting up. Patient states she still finds herself leaning to the left, although indicates this seems to be slightly less so than compared to before surgery. States she did not ambulate with therapy. Vital signs reviewed. Blood pressure has remained stable. Remains off nicardipine. Received 10 mg dose of IV hydralazine last evening. Subgaleal drain output overnight/last 8 hours= 15mL; 20mL recorded out the shift prior. Drainage incollection bulb is serosanguineous. Cranial dressing is C/D/I. Objective Vitals and Measurements T: 36.6 C (Oral) TMIN: 36.6 C (Oral) TMAX: 36.9 C (Oral) HR: 58 RR: 18 BP: 134/62 SpO2: 95% Intake and Output 7AM Yesterday to 7AM Today Follows commands briskly and accurately. Moves all 4 extremities. Intake and Output (Last 24 hours) Intake Oral Intake 790.00 Output Surgical Drain, Tube Output: 35.00 Urinary Catheter Output: 300.00 Stool Count 0.00 Urine Count 2.00 Total Summary Total Intake 790.00 Total Output 335.00 Fluid Balance 455.00 Physical Exam Patient is not in any acute distress. Follows commands briskly and accurately. Moves all 4 extremities. Face is symmetric. Tongue protrudes midline. PERRL. Abdomen is soft. Bowel sounds present throughout. No abdominal distention or tenderness with palpation. Patient is voiding without difficulty. Regular heart rate and rhythm. S1-S2 present Lungs clear bilaterally. Respirations unlabored and even. Weight Dosing Weight: 81.2 kg (01/30/24) Medications Medications (20) Active Scheduled: (12) ceFAZolin syringe 1 gram(s) 10 mL, IV Push (INT), q6hr dexamethasone 4 mg/1 mL solution 2 mg 0.5 mL, IV Push, TID heparin 5,000 units/mL (1 mL) vial 5,000 unit(s) 1 mL, Subcutaneous, q8h insulin glargine 30 unit(s) 0.3 mL, Subcutaneous (INT), qAM insulin lispro 100 units/mL Soln (3 mL) Give 0-10 units/dose, Subcutaneous, TIDAC insulin lispro 100 units/mL Soln (3 mL) 10 unit(s) 0.1 mL, Subcutaneous, TIDAC levETIRAcetam 500 mg tablet 500 mg 1 tab(s), Oral, q12h levothyroxine 112 mcg tablet 112 mcg 1 tab(s), Oral, qDay losartan 100 mg tablet 100 mg 1 tab(s), Oral, Daily oxybutynin 5 mg ER tablet 10 mg 2 tab(s), Oral, qDay pantoprazole 40 mg EC tablet 40 mg 1 tab(s), Oral, qDayAC venlafaxine 75 mg Tablet 75 mg 1 tab(s), Oral, qDay Continuous: (0) PRN: (8) acetaminophen 325 mg Tablet 650 mg 2 tab(s), Oral, q4h acetaminophen-HYDROcodone 325-5 mg tablet 1 tab(s), Oral, q4h dextrose 50% Solution Disp syringe 50 mL 12.5 gram(s) 25 mL, IV Push, AsDirected docusate sodium 100 mg Capsule 100 mg 1 cap(s), Oral, BID hydralazine 20 mg/mL (1mL) vial 10 mg 0.5 mL, IV Push, q2h HYDROmorphone 0.5 mg/0.5 mL syringe 0.2 mg 0.2 mL, IV Push, q2h magnesium hydroxide 8% Suspension 30 mL UD 30 mL, Oral, qHS ondansetron 2 mg/ 1 mL 2 mL INJ 4 mg 2 mL, IV Push, q4h Lab Results 01/30 04:39 WBC: 12.0 H Hgb: 13.3 Hct: 37.6 Platelet: 271 Neutrophil %: 88.9 H Glucose Level: 209 H Sodium Level: 140 Potassium Level: 4.5 BUN: 13.0 Creatinine Lvl (s): 0.78 EKG No qualifying data available. Right parietal/occipital brain mass s/p Right parietal craniotomy for debulking of tumor POD #2 --Underwent right parietal craniotomy for debulking of tumor by Dr. Tineo 01/30/24. --Awaiting final path from intra-operative biopsy. --Had routine post-op Brain MRI, reviewed by Dr. Tineo; refer to her addendum for details. --On Keppra post-operatively, 500mg BID for seizure prophylaxis. No seizure activity has been witnessed. --Remains on dexamethasone will decrease dose to 2mg TID today per Dr. Tineo instructions. Continue Protonix while on steroids. --Remains neurologically stable, transferred to stepdown yesterday. Continues to do well post-op. Continue neuro checks q4 hours. --Patient mobilized yesterday and participated in PT/OT. To be assisted OOB to chair TID with meals. Main focus at this time is working with therapy. Has been skilled for inpatient therapy. TELEGRAPH REPEATER INSTALLER assisting with discharge disposition. Planning for [facility] at time of discharge. --Subgaleal drain output meets criteria for removal of drain. Discontinued today per Dr. Tineo's instruction. Prophylactic ATB will be stopped 24hrs after drain removal. --Will restart Hep sq for DVT prophylaxis today. Continue SCDs to B/L LE at all times while in bed. --Encourage incentive spirometer, 10x per hour every hour while awake. HTN, improved --Patient did initially require nicardipine drip post-op, however was able to be weaned down and off. Has been kept off. --BP stable, improved. Remains off nicardipine. --Received 10 mg dose of IV hydralazine last evening. --Maintain SBP < 140mmHg Please see Dr. Tineo's addendum for further details regarding neurosurgical assessment/plan of care. Digitally Signed by MADIHA ZHANG on 02/01/2024 01:33 PM [id number] Note Date of Service 01/31/2024 This is a split/shared visit with Dr. 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 POD #1 73-year-old female who presented to [facility] ED on 01/25/2024 with complaints of multiple falls, difficulty standing up. Patient was apparently trying to get up and use the restroom, and feltas though she cannot bear weight on her legs. This caused her to slide down the side of the bed striking her head on the wooden bed frame. During her workup at [facility], patient had a noncontrasted head CT which demonstrated a brain mass in the right parietal/occipital region. Patient was then transferred to [facility] for evaluation by neurosurgery. She had recently been seen by her primary care physician due to recurrent falls and left-sided weakness. Per review of documentation, patient had apparently been falling almost daily. MRI of the brain was ordered, but prior to completion patient was evaluated after a fall in [place] ED. At that time she had a noncontrasted head CT which demonstrated 3.6 x 2.8 cm enhancing mass in the posterior aspect of the right parietal/occipital lobes with surrounding mass effect. Due to these findings, patient was referred on an outpatient basis to neurosurgery office, and brain MRI, PET scan, and CT chest abdomen, and pelvis with were ordered. Patient did have an MRI of the brain on 01/02/2024, and a PET scan on 01/03/2024. According to H&P, PET scan report indicated FDG concentration in the right parietal lobe, concerning for neoplasm. No other quantitative hypermetabolic abnormalities noted. Prior to scheduled follow-up, patient continue to follow at home, became progressively weaker, and wastaken to [place] ED for further evaluation. In ED, patient was given 10 mg of dexamethasone, and then scheduled on 4 mg every 6 hours. Patient has had no documented/witnessed seizure activity, and did not require Keppra pre-operatively. MRI of the brain completed at [place] demonstrates the right parietal/occipital lesion with irregular central enhancement and necrosis. Findings concerning for malignancy. This was reviewed by Dr. 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 In addition, noted heavy involvement of the cortex and gyri are widely expanded. The deep white matter reveals heterogeneous portions of the mass. Dr. Tineo met with the patient and family at bedside, reviewed imaging, and recommendation toproceed with surgical debulking. Patient and family both agreeable. Surgery planned for 01/30/2024. Taken to OR yesterday as planned and underwent right parietal craniotomy for debulking of tumor by Dr. Tineo; refer to operative note for details. Intra-operatively, a subgaleal drain was placed. Patient was returned to the SICU for recovery and close post-op monitoring with frequent neuro checks. She was placed on Keppra post-operatively, 500mg BID. She remains on dexamethasone at 4mg TID. Post-operatively, patient is doing quite well. She is awake, alert, oriented, and conversant this morning. No speech deficits. She reports her left UE feels about the same as prior to surgery. Has left spatial dysfunction, which may be permanent. Her face is symmetrical. Right and left discretionintact. Tongue protrudes midline. PERRL. Patient reports posterior head is uncomfortable and states feels like I have a plastic curler backthere. Head repositioned. She denies nausea or vomiting. States appetite has been good. Has not yet been OOB post-op. Did require Cardene overnight, but this was able to be weaned and stopped about 0230. Subgaleal drain output overnight/last 8 hours= 25mL; 40mL recorded out the shift prior. Drainage incollection bulb is serosanguineous. Cranial dressing is C/D/I. Objective Vitals and Measurements T: 37.3 C (Oral) TMIN: 21.13 C TMAX: 37.58 C HR: 81 (Monitored) RR: 15 BP: 107/40 BP: 114/56(Line) SpO2: 93% HT: 167.6 cm WT: 81.2 kg BMI: 28.91 Intake and Output 7AM Yesterday to 7AM Today Intake and Output (Last 24 hours) Intake Administration Information 2984.09 Oral Intake 580.00 Output Surgical Drain, Tube Output: 45.00 Urinary Catheter Output: 1900.00 Intra-Op EBL 25.00 Intra-Op Urine Catheter 1100.00 Stool Count 0.00 Total Summary Total Intake 3564.09 Total Output 3070.00 Fluid Balance 494.09 Physical Exam Lungs are clear. Respirations unlabored and even. HR regular, normal heart sounds. Abd is soft. Bowel sounds present. Weight Dosing Weight: 81.2 kg (01/30/24) Medications Medications (21) Active Scheduled: (11) ceFAZolin syringe 1 gram(s) 10 mL, IV Push (INT), q6hr dexamethasone 4 mg/1 mL solution 4 mg 1 mL, IV Push, TID insulin glargine 30 unit(s) 0.3 mL, Subcutaneous (INT), qAM insulin lispro 100 units/mL Soln (3 mL) Give 0-10 units/dose, Subcutaneous, TIDAC insulin lispro 100 units/mL Soln (3 mL) 10 unit(s) 0.1 mL, Subcutaneous, TIDAC levETIRAcetam PMX bag 500 mg 100 mL, IV Piggyback, q12hr levothyroxine 112 mcg tablet 112 mcg 1 tab(s), Oral, qDay losartan 100 mg tablet 100 mg 1 tab(s), Oral, Daily oxybutynin 5 mg ER tablet 10 mg 2 tab(s), Oral, qDay pantoprazole 40 mg EC tablet 40 mg 1 tab(s), Oral, qDayAC venlafaxine 75 mg Tablet 75 mg 1 tab(s), Oral, qDay Continuous: (2) nicardipine PMX 20 mg [5 mg/hr] + NS Premix Diluent 200 mL 200 mL, Intravenous, 50 mL/hr NS (0.9% nacl) 1,000 mL 1,000 mL, Intravenous, 125 mL/hr PRN: (8) acetaminophen 325 mg Tablet 650 mg 2 tab(s), Oral, q4h acetaminophen-HYDROcodone 325-5 mg tablet 1 tab(s), Oral, q4h dextrose 50% Solution Disp syringe 50 mL 12.5 gram(s) 25 mL, IV Push, AsDirected docusate sodium 100 mg Capsule 100 mg 1 cap(s), Oral, BID hydralazine 20 mg/mL (1mL) vial 10 mg 0.5 mL, IV Push, q2h HYDROmorphone 0.5 mg/0.5 mL syringe 0.2 mg 0.2 mL, IV Push, q2h magnesium hydroxide 8% Suspension 30 mL UD 30 mL, Oral, qHS ondansetron 2 mg/ 1 mL 2 mL INJ 4 mg 2 mL, IV Push, q4h Lab Results 01/30 04:39 WBC: 12.0 H Hgb: 13.3 Hct: 37.6 Platelet: 271 Neutrophil %: 88.9 H Glucose Level: 209 H Sodium Level: 140 Potassium Level: 4.5 BUN: 13.0 Creatinine Lvl (s): 0.78 01/29 19:15 WBC: 14.5 H Hgb: 14.5 Hct: 40.6 Platelet: 285 Neutrophil %: 89.2 H Glucose Level: 265 H Sodium Level: 140 Potassium Level: 3.4 L BUN: 13.0 Creatinine Lvl (s): 0.66 01/29 05:59 WBC: 9.5 Hgb: 14.2 Hct: 41.2 Platelet: 246 Neutrophil %: 83.0 H Protime: 11.6 PT International Ratio: 1.0 Glucose Level: 177 H Sodium Level: 141 Potassium Level: 4.2 BUN: 18.0 Creatinine Lvl (s): 0.74 EKG No qualifying data available. Assessment/Plan Right parietal/occipital brain mass s/p Right parietal craniotomy for debulking of tumor POD #1 --Underwent right parietal craniotomy for debulking of tumor by Dr. Tineo yesterday 01/29; refer to operative note for details. Intra-operatively, a subgaleal drain was placed. Patient was returned to the SICU for recovery and close post-op monitoring with frequent neuro checks. --Ordered routine post-op Brain MRI, scheduled for 0745 this morning. --Started on Keppra post-operatively, on 500mg BID for seizure prophylaxis. --Remains on dexamethasone at 4mg TID; will decrease dose to 2mg TID tomorrow 01/[address] Tineo instructions. Continue Protonix while on steroids. --Neurologically stable, and doing quite well post-op. Will change neurochecks today to q4 hours, patient also cleared to transfer to stepdown today. --Patient to be mobilized today; OOB to chair TID with meals, and participate in PT/OT- ordered fordaily treatments and to evaluate for home going needs. --D/C IVF. Encourage adequate PO intake. Encourage healthy, well-balanced diet/good nutrition --Encourage incentive spirometer, 10x per hour every hour while awake. --Maintain subgaleal drain and continue to monitor output. Continue prophylactic ATB while drain intact. Keep bulb to thumbprint compression. --Tentatively planning to begin DVT prophylaxis tomorrow. Continue SCDs to B/L LE at all times while in bed. --Inspection Supervisor following for medical management. HTN, improved --Patient did require nicardipine drip, however was able to be weaned down and off by about 0230 this morning. --BP is stable now. --Maintain SBP 140mmHg. Please see Dr. Tineo's addendum for further details regarding neurosurgical assessment/plan of care. Digitally Signed by MADIHA ZHANG on 01/31/2024 10:28 PM [id number] Note Date of Service 01/31/2024 This is a split/shared visit with Dr. 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 POD #2 73-year-old female who presented initially to [facility] ED on 01/25/2024 with complaints of multiple falls, difficulty standing up. During her workup at [facility], had a noncontrasted head CT which demonstrated a brain mass in the right parietal/occipital region. Patient was then transferred to [facility] for evaluation by neurosurgery. She had recently been seen by her primary care physician due to recurrent falls and left-sided weakness; falling almost daily. MRI of the brain was ordered, but prior to completion patient was evaluated after a fall in [place] ED. At that time she had a noncontrasted head CT which demonstrated 3.6 x 2.8 cm enhancing mass in the posterior aspect of the right parietal/occipital lobes with surrounding mass effect. Due to these findings, patient was referred on an outpatient basis to neurosurgery office, and brain MRI, PET scan, and CT chest abdomen, and pelvis with were ordered. Patient did havean MRI of the brain on 01/02/2024, and a PET scan on 01/03/2024. According to H&P, PET scan report indicated FDG concentration in the right parietal lobe, concerning for neoplasm. No other quantitative hypermetabolic abnormalities noted. Prior to scheduled follow-up, patient continue to follow athome, became progressively weaker, and was taken to [facility] ED for further evaluation. In ED, patient was given 10 mg of dexamethasone, and then scheduled on 4 mg every 6 hours. Has had no documented/witnessed seizure activity, and did not require Keppra pre-operatively. MRI of the brain completed here demonstrated the right parietal/occipital lesion with irregular central enhancement and necrosis. Findings concerning for malignancy. This was reviewed by Dr. 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 In addition, noted heavy involvement of the cortex and gyri are widely expanded. The deep white matter reveals heterogeneous portions of the mass. Dr. Tineo met with the patient and family at bedside, reviewed imaging, and recommendation toproceed with surgical debulking. Patient and family both agreeable. Surgery scheduled. Taken to OR 01/30/2024 for right parietal craniotomy for debulking of tumor by Dr. Tineo; refer to operative note for details. Intra-operatively, a subgaleal drain was placed. Patient was returned to SICU for recovery and close post-op monitoring with frequent neuro checks. She was placed on Keppra post- operatively, 500mg BID. Continued on dexamethasone 4mg TID. Post-operatively, patient is doing quite well. She is seen this morning, sitting up in bed. She is awake, alert, oriented, and conversant. States left UE feels similar to before surgery. Has left spatial dysfunction, which may be permanent. Reports mild headache this morning. Denies nausea or vomiting, tolerating PO diet. Participated with PT/OT yesterday. Was assisted out of bed to chair, tolerated sitting up. Patient states she still finds herself leaning to the left, although indicates this seems to be slightly less so than compared to before surgery. States she did not ambulate with therapy. Vital signs reviewed. Blood pressure has remained stable. Remains off nicardipine. Received 10 mg dose of IV hydralazine last evening. Subgaleal drain output overnight/last 8 hours= 15mL; 20mL recorded out the shift prior. Drainage incollection bulb is serosanguineous. Cranial dressing is C/D/I. Objective Vitals and Measurements T: 36.6 C (Oral) TMIN: 36.6 C (Oral) TMAX: 36.9 C (Oral) HR: 58 RR: 18 BP: 134/62 SpO2: 95% Intake and Output 7AM Yesterday to 7AM Today Follows commands briskly and accurately. Moves all 4 extremities. Intake and Output (Last 24 hours) Intake Oral Intake 790.00 Output Surgical Drain, Tube Output: 35.00 Urinary Catheter Output: 300.00 Stool Count 0.00 Urine Count 2.00 Total Summary Total Intake 790.00 Total Output 335.00 Fluid Balance 455.00 Physical Exam Patient is not in any acute distress. Follows commands briskly and accurately. Moves all 4 extremities. Face is symmetric. Tongue protrudes midline. PERRL. Abdomen is soft. Bowel sounds present throughout. No abdominal distention or tenderness with palpation. Patient is voiding without difficulty. Regular heart rate and rhythm. S1-S2 present Lungs clear bilaterally. Respirations unlabored and even. Weight Dosing Weight: 81.2 kg (01/30/24) Medications Medications (20) Active Scheduled: (12) ceFAZolin syringe 1 gram(s) 10 mL, IV Push (INT), q6hr dexamethasone 4 mg/1 mL solution 2 mg 0.5 mL, IV Push, TID heparin 5,000 units/mL (1 mL) vial 5,000 unit(s) 1 mL, Subcutaneous, q8h insulin glargine 30 unit(s) 0.3 mL, Subcutaneous (INT), qAM insulin lispro 100 units/mL Soln (3 mL) Give 0-10 units/dose, Subcutaneous, TIDAC insulin lispro 100 units/mL Soln (3 mL) 10 unit(s) 0.1 mL, Subcutaneous, TIDAC levETIRAcetam 500 mg tablet 500 mg 1 tab(s), Oral, q12h levothyroxine 112 mcg tablet 112 mcg 1 tab(s), Oral, qDay losartan 100 mg tablet 100 mg 1 tab(s), Oral, Daily oxybutynin 5 mg ER tablet 10 mg 2 tab(s), Oral, qDay pantoprazole 40 mg EC tablet 40 mg 1 tab(s), Oral, qDayAC venlafaxine 75 mg Tablet 75 mg 1 tab(s), Oral, qDay Continuous: (0) PRN: (8) acetaminophen 325 mg Tablet 650 mg 2 tab(s), Oral, q4h acetaminophen-HYDROcodone 325-5 mg tablet 1 tab(s), Oral, q4h dextrose 50% Solution Disp syringe 50 mL 12.5 gram(s) 25 mL, IV Push, AsDirected docusate sodium 100 mg Capsule 100 mg 1 cap(s), Oral, BID hydralazine 20 mg/mL (1mL) vial 10 mg 0.5 mL, IV Push, q2h HYDROmorphone 0.5 mg/0.5 mL syringe 0.2 mg 0.2 mL, IV Push, q2h magnesium hydroxide 8% Suspension 30 mL UD 30 mL, Oral, qHS ondansetron 2 mg/ 1 mL 2 mL INJ 4 mg 2 mL, IV Push, q4h Lab Results 01/30 04:39 WBC: 12.0 H Hgb: 13.3 Hct: 37.6 Platelet: 271 Neutrophil %: 88.9 H Glucose Level: 209 H Sodium Level: 140 Potassium Level: 4.5 BUN: 13.0 Creatinine Lvl (s): 0.78 EKG No qualifying data available. Right parietal/occipital brain mass s/p Right parietal craniotomy for debulking of tumor POD #2 --Underwent right parietal craniotomy for debulking of tumor by Dr. Tineo 01/30/24. --Awaiting final path from intra-operative biopsy. --Had routine post-op Brain MRI, reviewed by Dr. Tineo; refer to her addendum for details. --On Keppra post-operatively, 500mg BID for seizure prophylaxis. No seizure activity has been witnessed. --Remains on dexamethasone will decrease dose to 2mg TID today per Dr. Tineo instructions. Continue Protonix while on steroids. --Remains neurologically stable, transferred to stepdown yesterday. Continues to do well post-op. Continue neuro checks q4 hours. --Patient mobilized yesterday and participated in PT/OT. To be assisted OOB to chair TID with meals. Main focus at this time is working with therapy. Has been skilled for inpatient therapy. TELEGRAPH REPEATER INSTALLER assisting with discharge disposition. Planning for [facility] at time of discharge. --Subgaleal drain output meets criteria for removal of drain. Discontinued today per Dr. Tineo's instruction. Prophylactic ATB will be stopped 24hrs after drain removal. --Will restart Hep sq for DVT prophylaxis today. Continue SCDs to B/L LE at all times while in bed. --Encourage incentive spirometer, 10x per hour every hour while awake. HTN, improved --Patient did initially require nicardipine drip post-op, however was able to be weaned down and off. Has been kept off. --BP stable, improved. Remains off nicardipine. --Received 10 mg dose of IV hydralazine last evening. --Maintain SBP < 140mmHg Please see Dr. Tineo's addendum for further details regarding neurosurgical assessment/plan of care. Digitally Signed by MADIHA ZHANG on 02/01/2024 01:33 PM [id number] Progress note Date of Service 02/01/[address] Tineo's instruction, subgaleal drain removed at the bedside. Patient name and verified. Procedure explained. Patient in agreement to proceed. Anchoring suture holding drain to scalpwas clipped and removed in it's entirety. Subgaleal drain slowly and gently retracted until fully removed. Gauze placed over site, pressure applied. Cranial dressing was removed and discarded. Incision is well approximated with sutures intact. There are small bilateral sites with coretta in place where head held steady in place intra-operatively in head clamp. Sites were cleansed with mild soap and water. Rinsed, wiped with gauze. Patted dry. Once completely dry, 4x4 gauze folded and placed over incision; 4x4 gauze also folded and placed over subgaleal drain site. 4x4s secured in place with Kerlix head wrap. Patient tolerated well. Digitally Signed by MADIHA ZHANG on 02/01/2024 01:41 PM [id number] Note Date of Service 01/31/2024 This is a split/shared visit with Dr. 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 POD #2 73-year-old female who presented initially to [facility] ED on 01/25/2024 with complaints of multiple falls, difficulty standing up. During her workup at [facility], had a noncontrasted head CT which demonstrated a brain mass in the right parietal/occipital region. Patient was [facility] for evaluation by neurosurgery. She had recently been seen by her primary care physician due to recurrent falls and left-sided weakness; falling almost daily. MRI of the brain was ordered, but prior to completion patient was evaluated after a fall in [facility] ED. At that time she had a noncontrasted head CT which demonstrated 3.6 x 2.8 cm enhancing mass in the posterior aspect of the right parietal/occipital lobes with surrounding mass effect. Due to these findings, patient was referred on an outpatient basis to neurosurgery office, and brain MRI, PET scan, and CT chest abdomen, and pelvis with were ordered. Patient did havean MRI of the brain on 01/02/2024, and a PET scan on 01/03/2024. According to H&P, PET scan report indicated FDG concentration in the right parietal lobe, concerning for neoplasm. No other quantitative hypermetabolic abnormalities noted. Prior to scheduled follow-up, patient continue to follow athome, became progressively weaker, and was taken to [facility] ED for further evaluation. In ED, patient was given 10 mg of dexamethasone, and then scheduled on 4 mg every 6 hours. Has had no documented/witnessed seizure activity, and did not require Keppra pre-operatively. MRI of the brain completed here demonstrated the right parietal/occipital lesion with irregular central enhancement and necrosis. Findings concerning for malignancy. This was reviewed by Dr. 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 In addition, noted heavy involvement of the cortex and gyri are widely expanded. The deep white matter reveals heterogeneous portions of the mass. Dr. Tineo met with the patient and family at bedside, reviewed imaging, and recommendation toproceed with surgical debulking. Patient and family both agreeable. Surgery scheduled. Taken to OR 01/30/2024 for right parietal craniotomy for debulking of tumor by Dr. Tineo; refer to operative note for details. Intra-operatively, a subgaleal drain was placed. Patient was returned to SICU for recovery and close post-op monitoring with frequent neuro checks. She was placed on Keppra post- operatively, 500mg BID. Continued on dexamethasone 4mg TID. Post-operatively, patient is doing quite well. She is seen this morning, sitting up in bed. She is awake, alert, oriented, and conversant. States left UE feels similar to before surgery. Has left spatial dysfunction, which may be permanent. Reports mild headache this morning. Denies nausea or vomiting, tolerating PO diet. Participated with PT/OT yesterday. Was assisted out of bed to chair, tolerated sitting up. Patient states she still finds herself leaning to the left, although indicates this seems to be slightly less so than compared to before surgery. States she did not ambulate with therapy. Vital signs reviewed. Blood pressure has remained stable. Remains off nicardipine. Received 10 mg dose of IV hydralazine last evening. Subgaleal drain output overnight/last 8 hours= 15mL; 20mL recorded out the shift prior. Drainage incollection bulb is serosanguineous. Cranial dressing is C/D/I. Objective Vitals and Measurements T: 36.6 C (Oral) TMIN: 36.6 C (Oral) TMAX: 36.9 C (Oral) HR: 58 RR: 18 BP: 134/62 SpO2: 95% Intake and Output 7AM Yesterday to 7AM Today Follows commands briskly and accurately. Moves all 4 extremities. Intake and Output (Last 24 hours) Intake Oral Intake 790.00 Output Surgical Drain, Tube Output: 35.00 Urinary Catheter Output: 300.00 Stool Count 0.00 Urine Count 2.00 Total Summary Total Intake 790.00 Total Output 335.00 Fluid Balance 455.00 Physical Exam Patient is not in any acute distress. Follows commands briskly and accurately. Moves all 4 extremities. Face is symmetric. Tongue protrudes midline. PERRL. Abdomen is soft. Bowel sounds present throughout. No abdominal distention or tenderness with palpation. Patient is voiding without difficulty. Regular heart rate and rhythm. S1-S2 present Lungs clear bilaterally. Respirations unlabored and even. Weight Dosing Weight: 81.2 kg (01/30/24) Medications Medications (20) Active Scheduled: (12) ceFAZolin syringe 1 gram(s) 10 mL, IV Push (INT), q6hr dexamethasone 4 mg/1 mL solution 2 mg 0.5 mL, IV Push, TID heparin 5,000 units/mL (1 mL) vial 5,000 unit(s) 1 mL, Subcutaneous, q8h insulin glargine 30 unit(s) 0.3 mL, Subcutaneous (INT), qAM insulin lispro 100 units/mL Soln (3 mL) Give 0-10 units/dose, Subcutaneous, TIDAC insulin lispro 100 units/mL Soln (3 mL) 10 unit(s) 0.1 mL, Subcutaneous, TIDAC levETIRAcetam 500 mg tablet 500 mg 1 tab(s), Oral, q12h levothyroxine 112 mcg tablet 112 mcg 1 tab(s), Oral, qDay losartan 100 mg tablet 100 mg 1 tab(s), Oral, Daily oxybutynin 5 mg ER tablet 10 mg 2 tab(s), Oral, qDay pantoprazole 40 mg EC tablet 40 mg 1 tab(s), Oral, qDayAC venlafaxine 75 mg Tablet 75 mg 1 tab(s), Oral, qDay Continuous: (0) PRN: (8) acetaminophen 325 mg Tablet 650 mg 2 tab(s), Oral, q4h acetaminophen-HYDROcodone 325-5 mg tablet 1 tab(s), Oral, q4h dextrose 50% Solution Disp syringe 50 mL 12.5 gram(s) 25 mL, IV Push, AsDirected docusate sodium 100 mg Capsule 100 mg 1 cap(s), Oral, BID hydralazine 20 mg/mL (1mL) vial 10 mg 0.5 mL, IV Push, q2h HYDROmorphone 0.5 mg/0.5 mL syringe 0.2 mg 0.2 mL, IV Push, q2h magnesium hydroxide 8% Suspension 30 mL UD 30 mL, Oral, qHS ondansetron 2 mg/ 1 mL 2 mL INJ 4 mg 2 mL, IV Push, q4h Lab Results 01/30 04:39 WBC: 12.0 H Hgb: 13.3 Hct: 37.6 Platelet: 271 Neutrophil %: 88.9 H Glucose Level: 209 H Sodium Level: 140 Potassium Level: 4.5 BUN: 13.0 Creatinine Lvl (s): 0.78 EKG No qualifying data available. Right parietal/occipital brain mass s/p Right parietal craniotomy for debulking of tumor POD #2 --Underwent right parietal craniotomy for debulking of tumor by Dr. Tineo 01/30/24. --Awaiting final path from intra-operative biopsy. --Had routine post-op Brain MRI, reviewed by Dr. Tineo; refer to her addendum for details. --On Keppra post-operatively, 500mg BID for seizure prophylaxis. No seizure activity has been witnessed. --Remains on dexamethasone will decrease dose to 2mg TID today per Dr. Tineo instructions. Continue Protonix while on steroids. --Remains neurologically stable, transferred to stepdown yesterday. Continues to do well post-op. Continue neuro checks q4 hours. --Patient mobilized yesterday and participated in PT/OT. To be assisted OOB to chair TID with meals. Main focus at this time is working with therapy. Has been skilled for inpatient therapy. TELEGRAPH REPEATER INSTALLER assisting with discharge disposition. Planning for [facility] at time of discharge. --Subgaleal drain output meets criteria for removal of drain. Discontinued today per Dr. Tineo's instruction. Prophylactic ATB will be stopped 24hrs after drain removal. --Will restart Hep sq for DVT prophylaxis today. Continue SCDs to B/L LE at all times while in bed. --Encourage incentive spirometer, 10x per hour every hour while awake. HTN, improved --Patient did initially require nicardipine drip post-op, however was able to be weaned down and off. Has been kept off. --BP stable, improved. Remains off nicardipine. --Received 10 mg dose of IV hydralazine last evening. --Maintain SBP < 140mmHg Please see Dr. Tineo's addendum for further details regarding neurosurgical assessment/plan of care. Digitally Signed by MADIHA ZHANG on 02/01/2024 01:33 PM [id number] Note A. 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 Final Integrated diagnosiswill be completed when all pending results of molecular workup, including 1p/19q, NGS and MGMT methylation become available. B. 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 CELLULARITY, NOT DIAGNOSTIC OF NEOPLASM [facility] 12-04-2024 Note A. 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 Final Integrated diagnosiswill be completed when all pending results of molecular workup, including 1p/19q, NGS and MGMT methylation become available. B. 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 CELLULARITY, NOT DIAGNOSTIC OF NEOPLASM [facility] 12-03-2024 Note Date of Service 01/31/2024 Subjective 73-year-old female with a history of hypertension, dyslipidemia, diabetes mellitus (on semaglutide), hypothyroidism, GERD, drug-induced myopathy, OA, depression. In November, she was having frequent falls with left-sided weakness and found to have 3.6 x 2.8 cm right parietal-occipital brain mass. PET scan showed no metastases. She was to her ED 01/24 with complaints of falling out of bed, hitting her head on the wooden bed frame, weakness and unstable gait. CT brain showed known brain mass with mildly increased vasogenic edema and midline shift. She was given dexamethasone and transferred to [facility]. She was seen in consultation with Dr. Tineo of neurosurgery, MRI was completed 01/25 with plans for tumor debulking. She is now status post right parietal stereotactic craniotomy for debulking of tumor, neurophysiological monitoring of SSEP, direct cortical MEP and subcortical stimulation (01/30/2024) per Dr. Tineo. MONICA drain was placed and she had an EBL of 25 mL. She was brought to the SICU postop, breathing spontaneously. She was hypertensive requiring Cardene drip. It was weaned off at 2 AM this morning. She was started on Keppra 500 mg twice daily. She is receiving as needed [place] and Dilaudid for pain control. Plan is for MRI brain this morning. Objective Vitals and Measurements T: 37.3 C (Oral) TMIN: 21.13 C TMAX: 37.58 C HR: 71 (Monitored) RR: 16 BP: 107/40 BP: 133/59(Line) SpO2: 91% HT: 167.6 cm WT: 81.2 kg BMI: 28.91 Intake and Output 7AM Yesterday to 7AM Today Intake and Output (Last 24 hours) Intake Administration Information 2934.09 Oral Intake 580.00 Output Surgical Drain, Tube Output: 45.00 Urinary Catheter Output: 1900.00 Intra-Op EBL 25.00 Intra-Op Urine Catheter 1100.00 Stool Count 0.00 Total Summary Total Intake 3514.09 Total Output 3070.00 Fluid Balance 444.09 Physical Exam General: Awake, alert, no acute distress HEENT: Normocephalic, gauze dressing dressing behind right ear, dry/intact, MONICA drain with minimal serosanguineous drainage Neck: supple, trachea midline Cardiovascular: Regular rate and rhythm, normal S1-S2, no murmur, rubs, or gallops Respiratory: Lungs clear and diminished, respirations easy, on room air Abdomen: Soft, nontender, normoactive bowel sounds Extremities: 2+ pulses, no edema Neurological: A&O x 3, weak on left Skin: Warm & dry, skin intact Weight Dosing Weight: 81.2 kg (01/30/24) Medications Medications (21) Active Scheduled: (11) ceFAZolin syringe 1 gram(s) 10 mL, IV Push (INT), q6hr dexamethasone 4 mg/1 mL solution 4 mg 1 mL, IV Push, TID insulin glargine 30 unit(s) 0.3 mL, Subcutaneous (INT), qAM insulin lispro 100 units/mL Soln (3 mL) Give 0-10 units/dose, Subcutaneous, TIDAC insulin lispro 100 units/mL Soln (3 mL) 10 unit(s) 0.1 mL, Subcutaneous, TIDAC levETIRAcetam PMX bag 500 mg 100 mL, IV Piggyback, q12hr levothyroxine 112 mcg tablet 112 mcg 1 tab(s), Oral, qDay losartan 100 mg tablet 100 mg 1 tab(s), Oral, Daily oxybutynin 5 mg ER tablet 10 mg 2 tab(s), Oral, qDay pantoprazole 40 mg VIAL 40 mg, IV Push, qDayAC venlafaxine 75 mg Tablet 75 mg 1 tab(s), Oral, qDay Continuous: (2) nicardipine PMX 20 mg [5 mg/hr] + NS Premix Diluent 200 mL 200 mL, Intravenous, 50 mL/hr NS (0.9% nacl) 1,000 mL 1,000 mL, Intravenous, 125 mL/hr PRN: (8) acetaminophen 325 mg Tablet 650 mg 2 tab(s), Oral, q4h acetaminophen-HYDROcodone 325-5 mg tablet 1 tab(s), Oral, q4h dextrose 50% Solution Disp syringe 50 mL 12.5 gram(s) 25 mL, IV Push, AsDirected docusate sodium 100 mg Capsule 100 mg 1 cap(s), Oral, BID hydralazine 20 mg/mL (1mL) vial 10 mg 0.5 mL, IV Push, q2h HYDROmorphone 0.5 mg/0.5 mL syringe 0.2 mg 0.2 mL, IV Push, q2h magnesium hydroxide 8% Suspension 30 mL UD 30 mL, Oral, qHS ondansetron 2 mg/ 1 mL 2 mL INJ 4 mg 2 mL, IV Push, q4h Lab Results 01/30 04:39 WBC: 12.0 H Hgb: 13.3 Hct: 37.6 Platelet: 271 Neutrophil %: 88.9 H Glucose Level: 209 H Sodium Level: 140 Potassium Level: 4.5 BUN: 13.0 Creatinine Lvl (s): 0.78 01/29 19:15 WBC: 14.5 H Hgb: 14.5 Hct: 40.6 Platelet: 285 Neutrophil %: 89.2 H Glucose Level: 265 H Sodium Level: 140 Potassium Level: 3.4 L BUN: 13.0 Creatinine Lvl (s): 0.66 01/29 05:59 WBC: 9.5 Hgb: 14.2 Hct: 41.2 Platelet: 246 Neutrophil %: 83.0 H Protime: 11.6 PT International Ratio: 1.0 Glucose Level: 177 H Sodium Level: 141 Potassium Level: 4.2 BUN: 18.0 Creatinine Lvl (s): 0.74 Imaging Results and Diagnostics MRI Brain w/ Contrast Result Date: January 30, 2024 Verified By: IRAJ GENAO MD CLINICAL STATEMENT: IMPRESSION: Right parietal/occipital lobe mass with surrounding edema. CT Angiography Head w/ Contrast Result Date: January 28, 2024 Verified By: MAURO POWER DO CLINICAL STATEMENT: IMPRESSION: 1. Right parietal rim enhancing mass lesion appears supplied via distalcortical branches arising proximally from the right anterior cerebral arteryand likely also the right posterior cerebral artery.2. No evidence of large vessel occlusion or significant intracranialatherosclerotic disease resulting in flow limiting stenosis. 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 MRI Brain w/ Contrast Result Date: January 26, 2024 Verified By: JOSE BOWMAN MD CLINICAL STATEMENT: IMPRESSION: MR of the brain obtained for surgical planning EKG No qualifying data available. Assessment/Plan Assessment: 1. Right parieto-occipital brain mass status post right parietal stereotactic craniotomy for debulking of tumor (01/30/2024) 2. Hypertension requiring Cardene drip 3. History of dyslipidemia, diabetes mellitus, hypothyroidism, GERD Plan: 1. Patient is being monitored closely in the surgical intensive care unit post tumor debulking. Nicardipine drip has been weaned off overnight. Losartan 100 mg daily and venlafaxine 75 mg daily restarted. Goal systolic blood pressure 110 140 mmHg per neurosurgery. 2. Continue Keppra 500 mg IV twice daily. 3. ADA diet once passes bedside swallow eval. 4. Continue Lantus 30 units every morning, Humalog 10 units 3 times daily AC along with Humalog sliding scale 3 times daily AC. 5. Continue cefazolin 1 g IV every 6 hours while drain in place. 6. IV fluids normal saline at 125 mL/h. 7. Synthroid 112 micrograms p.o. daily. 8. Decadron 4 mg IV 3 times daily per neurosurgery 9. Continue as needed acetaminophen, [place] and Dilaudid for pain control. 10. Protonix 40 mg p.o. daily for GI prophylaxis 11. SCDs for DVT prophylaxis CODE STATUS full code Plan of care discussed with Dr. Garcia. Please see his addendum below for further details. Digitally Signed by AURORA COLEY on 01/31/2024 09:27 AM [id number] Note ORIGINAL EXAMINATION: MRI OF THE BRAIN WITHOUT AND WITH CONTRAST 01/31/2024 9:05 am TECHNIQUE: Multiplanar multisequence MRI of the head/brain was performed without and with the administration of intravenous contrast. COMPARISON: MRI brain 01/30/2024. HISTORY: ORDERING SYSTEM PROVIDED HISTORY: Reason for Exam: postop evaluation FINDINGS: INTRACRANIAL STRUCTURES/VENTRICLES: There is no acute infarct. There has been interval right-sided craniotomy with resection of the previously identified multilobulated mass in the right parietooccipital region. The rim of the surgical cavity exhibits restricted diffusion with minimal hemorrhage and no significant contrast enhancement. There is decreased mass effect upon the posterior horn of the right lateral ventricle with decreased midline shift. No extra-axial fluid collection. ORBITS: Previous cataract surg SINUSES: The visualized paranasal sinuses and mastoid air cells demonstrate no acute abnormality. IMPRESSION: Interval resection of the right parietooccipital mass. No postsurgical complication. Interpreted by: Iraj Genao Preliminary Report By: Iraj Genao Electronically signed By Iraj Genao Dictated Date: 01/31/2024 9:09:57 AM Prelim Date: 01/31/2024 9:21:14 AM Sign Date: 01/31/2024 9:21:14 AM Ordering Provider: [facility]12-03-2024 Note Date of Service 01/31/2024 This is a split/shared visit with Dr. 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 POD #1 73-year-old female who presented to [facility] ED on 01/25/2024 with complaints of multiple falls, difficulty standing up. Patient was apparently trying to get up and use the restroom, and feltas though she cannot bear weight on her legs. This caused her to slide down the side of the bed striking her head on the wooden bed frame. During her workup at [facility], patient had a noncontrasted head CT which demonstrated a brain mass in the right parietal/occipital region. Patient was then [facility] for evaluation by neurosurgery. She had recently been seen by her primary care physician due to recurrent falls and left-sided weakness. Per review of documentation, patient had apparently been falling almost daily. MRI of the brain was ordered, but prior to completion patient was evaluated after a fall in [place] ED. At that time she had a noncontrasted head CT which demonstrated 3.6 x 2.8 cm enhancing mass in the posterior aspect of the right parietal/occipital lobes with surrounding mass effect. Due to these findings, patient was referred on an outpatient basis to neurosurgery office, and brain MRI, PET scan, and CT chest abdomen, and pelvis with were ordered. Patient did have an MRI of the brain on 01/02/2024, and a PET scan on 01/03/2024. According to H&P, PET scan report indicated FDG concentration in the right parietal lobe, concerning for neoplasm. No other quantitative hypermetabolic abnormalities noted. Prior to scheduled follow-up, patient continue to follow at home, became progressively weaker, and wastaken to [place] ED for further evaluation. In ED, patient was given 10 mg of dexamethasone, and then scheduled on 4 mg every 6 hours. Patient has had no documented/witnessed seizure activity, and did not require Keppra pre-operatively. MRI of the brain completed at [place] demonstrates the right parietal/occipital lesion with irregular central enhancement and necrosis. Findings concerning for malignancy. This was reviewed by Dr. 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 In addition, noted heavy involvement of the cortex and gyri are widely expanded. The deep white matter reveals heterogeneous portions of the mass. Dr. Tineo met with the patient and family at bedside, reviewed imaging, and recommendation toproceed with surgical debulking. Patient and family both agreeable. Surgery planned for 01/30/2024. Taken to OR yesterday as planned and underwent right parietal craniotomy for debulking of tumor by Dr. Tineo; refer to operative note for details. Intra-operatively, a subgaleal drain was placed. Patient was returned to the SICU for recovery and close post-op monitoring with frequent neuro checks. She was placed on Keppra post-operatively, 500mg BID. She remains on dexamethasone at 4mg TID. Post-operatively, patient is doing quite well. She is awake, alert, oriented, and conversant this morning. No speech deficits. She reports her left UE feels about the same as prior to surgery. Has left spatial dysfunction, which may be permanent. Her face is symmetrical. Right and left discretionintact. Tongue protrudes midline. PERRL. Patient reports posterior head is uncomfortable and states feels like I have a plastic curler backthere. Head repositioned. She denies nausea or vomiting. States appetite has been good. Has not yet been OOB post-op. Did require Cardene overnight, but this was able to be weaned and stopped about 0230. Subgaleal drain output overnight/last 8 hours= 25mL; 40mL recorded out the shift prior. Drainage incollection bulb is serosanguineous. Cranial dressing is C/D/I. Objective Vitals and Measurements T: 37.3 C (Oral) TMIN: 21.13 C TMAX: 37.58 C HR: 81 (Monitored) RR: 15 BP: 107/40 BP: 114/56(Line) SpO2: 93% HT: 167.6 cm WT: 81.2 kg BMI: 28.91 Intake and Output 7AM Yesterday to 7AM Today Intake and Output (Last 24 hours) Intake Administration Information 2984.09 Oral Intake 580.00 Output Surgical Drain, Tube Output: 45.00 Urinary Catheter Output: 1900.00 Intra-Op EBL 25.00 Intra-Op Urine Catheter 1100.00 Stool Count 0.00 Total Summary Total Intake 3564.09 Total Output 3070.00 Fluid Balance 494.09 Physical Exam Lungs are clear. Respirations unlabored and even. HR regular, normal heart sounds. Abd is soft. Bowel sounds present. Weight Dosing Weight: 81.2 kg (01/30/24) Medications Medications (21) Active Scheduled: (11) ceFAZolin syringe 1 gram(s) 10 mL, IV Push (INT), q6hr dexamethasone 4 mg/1 mL solution 4 mg 1 mL, IV Push, TID insulin glargine 30 unit(s) 0.3 mL, Subcutaneous (INT), qAM insulin lispro 100 units/mL Soln (3 mL) Give 0-10 units/dose, Subcutaneous, TIDAC insulin lispro 100 units/mL Soln (3 mL) 10 unit(s) 0.1 mL, Subcutaneous, TIDAC levETIRAcetam PMX bag 500 mg 100 mL, IV Piggyback, q12hr levothyroxine 112 mcg tablet 112 mcg 1 tab(s), Oral, qDay losartan 100 mg tablet 100 mg 1 tab(s), Oral, Daily oxybutynin 5 mg ER tablet 10 mg 2 tab(s), Oral, qDay pantoprazole 40 mg EC tablet 40 mg 1 tab(s), Oral, qDayAC venlafaxine 75 mg Tablet 75 mg 1 tab(s), Oral, qDay Continuous: (2) nicardipine PMX 20 mg [5 mg/hr] + NS Premix Diluent 200 mL 200 mL, Intravenous, 50 mL/hr NS (0.9% nacl) 1,000 mL 1,000 mL, Intravenous, 125 mL/hr PRN: (8) acetaminophen 325 mg Tablet 650 mg 2 tab(s), Oral, q4h acetaminophen-HYDROcodone 325-5 mg tablet 1 tab(s), Oral, q4h dextrose 50% Solution Disp syringe 50 mL 12.5 gram(s) 25 mL, IV Push, AsDirected docusate sodium 100 mg Capsule 100 mg 1 cap(s), Oral, BID hydralazine 20 mg/mL (1mL) vial 10 mg 0.5 mL, IV Push, q2h HYDROmorphone 0.5 mg/0.5 mL syringe 0.2 mg 0.2 mL, IV Push, q2h magnesium hydroxide 8% Suspension 30 mL UD 30 mL, Oral, qHS ondansetron 2 mg/ 1 mL 2 mL INJ 4 mg 2 mL, IV Push, q4h Lab Results 01/30 04:39 WBC: 12.0 H Hgb: 13.3 Hct: 37.6 Platelet: 271 Neutrophil %: 88.9 H Glucose Level: 209 H Sodium Level: 140 Potassium Level: 4.5 BUN: 13.0 Creatinine Lvl (s): 0.78 01/29 19:15 WBC: 14.5 H Hgb: 14.5 Hct: 40.6 Platelet: 285 Neutrophil %: 89.2 H Glucose Level: 265 H Sodium Level: 140 Potassium Level: 3.4 L BUN: 13.0 Creatinine Lvl (s): 0.66 01/29 05:59 WBC: 9.5 Hgb: 14.2 Hct: 41.2 Platelet: 246 Neutrophil %: 83.0 H Protime: 11.6 PT International Ratio: 1.0 Glucose Level: 177 H Sodium Level: 141 Potassium Level: 4.2 BUN: 18.0 Creatinine Lvl (s): 0.74 EKG No qualifying data available. Assessment/Plan Right parietal/occipital brain mass s/p Right parietal craniotomy for debulking of tumor POD #1 --Underwent right parietal craniotomy for debulking of tumor by Dr. Tineo yesterday 01/29; refer to operative note for details. Intra-operatively, a subgaleal drain was placed. Patient was returned to the SICU for recovery and close post-op monitoring with frequent neuro checks. --Ordered routine post-op Brain MRI, scheduled for 0745 this morning. --Started on Keppra post-operatively, on 500mg BID for seizure prophylaxis. --Remains on dexamethasone at 4mg TID; will decrease dose to 2mg TID tomorrow 01/[address] Tineo instructions. Continue Protonix while on steroids. --Neurologically stable, and doing quite well post-op. Will change neurochecks today to q4 hours, patient also cleared to transfer to stepdown today. --Patient to be mobilized today; OOB to chair TID with meals, and participate in PT/OT- ordered fordaily treatments and to evaluate for home going needs. --D/C IVF. Encourage adequate PO intake. Encourage healthy, well-balanced diet/good nutrition --Encourage incentive spirometer, 10x per hour every hour while awake. --Maintain subgaleal drain and continue to monitor output. Continue prophylactic ATB while drain intact. Keep bulb to thumbprint compression. --Tentatively planning to begin DVT prophylaxis tomorrow. Continue SCDs to B/L LE at all times while in bed. --Inspection Supervisor following for medical management. HTN, improved --Patient did require nicardipine drip, however was able to be weaned down and off by about 0230 this morning. --BP is stable now. --Maintain SBP 140mmHg. Please see Dr. Tineo's addendum for further details regarding neurosurgical assessment/plan of care. Digitally Signed by MADIHA ZHANG on 01/31/2024 10:28 PM [id number] Date of Service 01/31/2024 Subjective 73-year-old female with a history of hypertension, dyslipidemia, diabetes mellitus (on semaglutide), hypothyroidism, GERD, drug-induced myopathy, OA, depression. In November, she was having frequent falls with left-sided weakness and found to have 3.6 x 2.8 cm right parietal-occipital brain mass. PET scan showed no metastases. She was to her ED 01/24 with complaints of falling out of bed, hitting her head on the wooden bed frame, weakness and unstable gait. CT brain showed known brain mass with mildly increased vasogenic edema and midline shift. She was given dexamethasone and transferred to [facility]. She was seen in consultation with Dr. Tineo of neurosurgery, MRI was completed 01/25 with plans for tumor debulking. She is now status post right parietal stereotactic craniotomy for debulking of tumor, neurophysiological monitoring of SSEP, direct cortical MEP and subcortical stimulation (01/30/2024) per Dr. Tineo. MONICA drain was placed and she had an EBL of 25 mL. She was brought to the SICU postop, breathing spontaneously. She was hypertensive requiring Cardene drip. It was weaned off at 2 AM this morning. She was started on Keppra 500 mg twice daily. She is receiving as needed [place] and Dilaudid for pain control. Plan is for MRI brain this morning. Objective Vitals and Measurements T: 37.3 C (Oral) TMIN: 21.13 C TMAX: 37.58 C HR: 71 (Monitored) RR: 16 BP: 107/40 BP: 133/59(Line) SpO2: 91% HT: 167.6 cm WT: 81.2 kg BMI: 28.91 Intake and Output 7AM Yesterday to 7AM Today Intake and Output (Last 24 hours) Intake Administration Information 2934.09 Oral Intake 580.00 Output Surgical Drain, Tube Output: 45.00 Urinary Catheter Output: 1900.00 Intra-Op EBL 25.00 Intra-Op Urine Catheter 1100.00 Stool Count 0.00 Total Summary Total Intake 3514.09 Total Output 3070.00 Fluid Balance 444.09 Physical Exam General: Awake, alert, no acute distress HEENT: Normocephalic, gauze dressing dressing behind right ear, dry/intact, MONICA drain with minimal serosanguineous drainage Neck: supple, trachea midline Cardiovascular: Regular rate and rhythm, normal S1-S2, no murmur, rubs, or gallops Respiratory: Lungs clear and diminished, respirations easy, on room air Abdomen: Soft, nontender, normoactive bowel sounds Extremities: 2+ pulses, no edema Neurological: A&O x 3, weak on left Skin: Warm & dry, skin intact Weight Dosing Weight: 81.2 kg (01/30/24) Medications Medications (21) Active Scheduled: (11) ceFAZolin syringe 1 gram(s) 10 mL, IV Push (INT), q6hr dexamethasone 4 mg/1 mL solution 4 mg 1 mL, IV Push, TID insulin glargine 30 unit(s) 0.3 mL, Subcutaneous (INT), qAM insulin lispro 100 units/mL Soln (3 mL) Give 0-10 units/dose, Subcutaneous, TIDAC insulin lispro 100 units/mL Soln (3 mL) 10 unit(s) 0.1 mL, Subcutaneous, TIDAC levETIRAcetam PMX bag 500 mg 100 mL, IV Piggyback, q12hr levothyroxine 112 mcg tablet 112 mcg 1 tab(s), Oral, qDay losartan 100 mg tablet 100 mg 1 tab(s), Oral, Daily oxybutynin 5 mg ER tablet 10 mg 2 tab(s), Oral, qDay pantoprazole 40 mg VIAL 40 mg, IV Push, qDayAC venlafaxine 75 mg Tablet 75 mg 1 tab(s), Oral, qDay Continuous: (2) nicardipine PMX 20 mg [5 mg/hr] + NS Premix Diluent 200 mL 200 mL, Intravenous, 50 mL/hr NS (0.9% nacl) 1,000 mL 1,000 mL, Intravenous, 125 mL/hr PRN: (8) acetaminophen 325 mg Tablet 650 mg 2 tab(s), Oral, q4h acetaminophen-HYDROcodone 325-5 mg tablet 1 tab(s), Oral, q4h dextrose 50% Solution Disp syringe 50 mL 12.5 gram(s) 25 mL, IV Push, AsDirected docusate sodium 100 mg Capsule 100 mg 1 cap(s), Oral, BID hydralazine 20 mg/mL (1mL) vial 10 mg 0.5 mL, IV Push, q2h HYDROmorphone 0.5 mg/0.5 mL syringe 0.2 mg 0.2 mL, IV Push, q2h magnesium hydroxide 8% Suspension 30 mL UD 30 mL, Oral, qHS ondansetron 2 mg/ 1 mL 2 mL INJ 4 mg 2 mL, IV Push, q4h Lab Results 01/30 04:39 WBC: 12.0 H Hgb: 13.3 Hct: 37.6 Platelet: 271 Neutrophil %: 88.9 H Glucose Level: 209 H Sodium Level: 140 Potassium Level: 4.5 BUN: 13.0 Creatinine Lvl (s): 0.78 01/29 19:15 WBC: 14.5 H Hgb: 14.5 Hct: 40.6 Platelet: 285 Neutrophil %: 89.2 H Glucose Level: 265 H Sodium Level: 140 Potassium Level: 3.4 L BUN: 13.0 Creatinine Lvl (s): 0.66 01/29 05:59 WBC: 9.5 Hgb: 14.2 Hct: 41.2 Platelet: 246 Neutrophil %: 83.0 H Protime: 11.6 PT International Ratio: 1.0 Glucose Level: 177 H Sodium Level: 141 Potassium Level: 4.2 BUN: 18.0 Creatinine Lvl (s): 0.74 Imaging Results and Diagnostics MRI Brain w/ Contrast Result Date: January 30, 2024 Verified By: IRAJ GENAO MD CLINICAL STATEMENT: IMPRESSION: Right parietal/occipital lobe mass with surrounding edema. CT Angiography Head w/ Contrast Result Date: January 28, 2024 Verified By: MAURO POWER DO CLINICAL STATEMENT: IMPRESSION: 1. Right parietal rim enhancing mass lesion appears supplied via distalcortical branches arising proximally from the right anterior cerebral arteryand likely also the right posterior cerebral artery.2. No evidence of large vessel occlusion or significant intracranialatherosclerotic disease resulting in flow limiting stenosis. 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 MRI Brain w/ Contrast Result Date: January 26, 2024 Verified By: JOSE BOWMAN MD CLINICAL STATEMENT: IMPRESSION: MR of the brain obtained for surgical planning EKG No qualifying data available. Assessment/Plan Assessment: 1. Right parieto-occipital brain mass status post right parietal stereotactic craniotomy for debulking of tumor (01/30/2024) 2. Hypertension requiring Cardene drip 3. History of dyslipidemia, diabetes mellitus, hypothyroidism, GERD Plan: 1. Patient is being monitored closely in the surgical intensive care unit post tumor debulking. Nicardipine drip has been weaned off overnight. Losartan 100 mg daily and venlafaxine 75 mg daily restarted. Goal systolic blood pressure 110 140 mmHg per neurosurgery. 2. Continue Keppra 500 mg IV twice daily. 3. ADA diet once passes bedside swallow eval. 4. Continue Lantus 30 units every morning, Humalog 10 units 3 times daily AC along with Humalog sliding scale 3 times daily AC. 5. Continue cefazolin 1 g IV every 6 hours while drain in place. 6. IV fluids normal saline at 125 mL/h. 7. Synthroid 112 micrograms p.o. daily. 8. Decadron 4 mg IV 3 times daily per neurosurgery 9. Continue as needed acetaminophen, [place] and Dilaudid for pain control. 10. Protonix 40 mg p.o. daily for GI prophylaxis 11. SCDs for DVT prophylaxis CODE STATUS full code Plan of care discussed with Dr. Garcia. Please see his addendum below for further details. Digitally Signed by AURORA COLEY on 01/31/2024 09:27 AM [id number] Critical care medicine Consult note Date of Service 06/30/2023 Reason for Consultation Medical management while in the surgical intensive care unit Referring Physician Dr. Tineo History of Present Illness Terence Valdivia is a 73-year-old female with a past medical history significant for hypertension, hyperlipidemia, hypothyroidism, type 2 diabetes on Ozempic, GERD, major depressive disorder, drug-induced myopathy, osteoarthritis of the left knee, right rotator cuff tendinitis and a recently diagnosed brain mass in November 2023. Per neurosurgery note her had reported she had been falling periodically throughout the month of November, was being evaluated by physical therapy who noted her left-sided weakness so her PCP ordered a CT of the head. The head CT was completed 12/26 in [place] showing a 3.6 x 2.8 cm enhancing mass in the posterior aspect of the right parietal occipital lobes withsurrounding mass effect, along with evidence of heterogeneous areas of enhancement in the superior right posterior parietal lobe, adjacent send cerebral vertex. On 12/29/2023 she had a follow up withher PCP to review the CT results and additional diagnostics including a MRI of the brain ([id number]), CT of chest, abdomen and pelvis (completed 12/28), and PET scan (completed 01/02) was orderedalong with a referral to neurosurgery. She presented to [facility] emergency department on 01/24 with complaints of multiple falls and difficulty standing up, resulting in her sliding out of bed. A noncontrast CT of the head was completed re-demonstrating a brain mass in the right parietal/occipital region, surrounded by vasogenicedema and an increase in the midline shift measuring 6 mm, previously 4 mm on the 12/27/23. The case was discussed with Dr. Tineo, she received IV dexamethasone and was transferred to [facility] for further neurosurgical management. 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 This was discussed with the patient and her family with recommendation for surgical debulking to permit diagnosis and reduce tumor volume to improve response to treatment, a total resection would render patient with a permanent left-sided hemiplegia and hemisensory loss. She is now postop day for a craniotomy stereotactic, right parietal craniotomy for debulking of tumor, MONICA drain placed, EBL 25 cc. She was extubated intraoperatively and returned to SICU on a simple face mask with a pulse ox reading of 100%. Her heart rate was 86, sinus rhythm with a systolic blood pressure of 183. Hydralazine 10 mg IV push was ordered. Review of Systems Unobtainable at this time recovering from anesthesia. Physical Exam Vitals and Measurements T: 21.13 C TMIN: 21.13 C TMAX: 37.58 C HR: 86 (Monitored) RR: 20 BP: 183/79 SpO2: 96% Weight Dosing Weight: 81.2 kg (01/25/24) General: Appears in no acute distress HEENT: Normocephalic, atraumatic, dressing behind right ear dry/intact Neck: Symmetric, no masses or lesions, trachea midline Cardiovascular: Strong regular S1 and S2, no murmur, rub or gallop, no circumoral stenosis, capillary refill less than 2 seconds, peripheral pulses palpable Respirations: Thoracic symmetric with good expansion, respirations easy, regular no retraction, no adventitious breath sounds Abdomen: Round, symmetric, no palpable masses, negative for tenderness, active bowel sounds Extremities: Without edema Neurologic: Awakens easily, follows simple commands without difficulty, pupils equal reactive to light 2 mm Musculoskeletal: Moving all extremities without limitations with 4/5 muscle strength with left sideslightly weaker then right Skin: Warm, dry, without rash, nails pink, no clubbing or cyanosis Lab Results Event Name Event Result Date/Time WBC 9.5 10^3/mcL 01/30/24 05:59:00 Hgb 14.2 G/dL 01/30/24 05:59:00 Hct 41.2 % 01/30/24 05:59:00 Platelet 246 10^3/mcL 01/30/24 05:59:00 APTT 24.9 seconds Low 01/30/24 05:59:00 Protime 11.6 seconds 01/30/24 05:59:00 PT International Ratio 1 ratio 01/30/24 05:59:00 Fibrinogen 284 mg/dL 01/30/24 05:59:00 Glucose Level 177 mg/dL High 01/30/24 05:59:00 Sodium Level 141 mEq/L 01/30/24 05:59:00 Potassium Level 4.2 mEq/L 01/30/24 05:59:00 Chloride 108 mEq/L 01/30/24 05:59:00 CO2 25 mEq/L 01/30/24 05:59:00 BUN 18 mg/dL 01/30/24 05:59:00 Creatinine Lvl (s) 0.74 mg/dL 01/30/24 05:59:00 Imaging Results and Diagnostics MRI Brain w/ Contrast Result Date: January 30, 2024 Verified By: IRAJ GENAO MD CLINICAL STATEMENT: IMPRESSION: Right parietal/occipital lobe mass with surrounding edema. CT Angiography Head w/ Contrast Result Date: January 28, 2024 Verified By: MAURO POWER DO CLINICAL STATEMENT: IMPRESSION: 1. Right parietal rim enhancing mass lesion appears supplied via distal cortical branches arising proximally from the right anterior cerebral artery and likely also the right posterior cerebral artery.2. No evidence of large vessel occlusion or significant intracranial atherosclerotic disease resulting in flow limiting stenosis. MRI Brain w/ + w/o Contrast Result Date: January 26, 2024 Verified By: JOSE BOWMAN MD CLINICAL STATEMENT: IMPRESSION: Right parietal/occipital lesion with irregular central enhancement and necrosis, most likely glioblastoma. Assessment/Plan Assessment: 1. Status post debulking right parietal/occipital mass, EBL 2. 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 Hypertension, history of 4. Hyperglycemia, history of diabetes mellitus 5. History of GERD, hypothyroidism, osteoarthritis and stress incontinence 6. GI prophylaxis 7. DVT prophylaxis 8. CODE STATUS Plan: 1. Continue to monitor closely in the surgical intensive care unit. Neurological checks per neurosurgery 2. Continue to maintain systolic blood pressure below 140 mmHg. Hydralazine 10mg IV as needed every2 hours for assistance 3. Cefazolin 1 g IV every 6 hours per neurosurgery, MONICA drain intact neurosurgery 4. Decadron 4 mg IV 3 times daily per neurosurgery 5. Will continue Lantus 30 units subcutaneous every a.m. but will continue to hold this am dose as patient was n.p.o. for surgery today, will resume tomorrow 01/30 a.m. 6. Continue Humalog sliding scale 3 times daily once she passes her swallow evaluation and is able to take a diet this evening 7. Continue 10 units of Humalog 3 times daily along with sliding scale and p.m. long-acting insulindose. This regimen was started preop and appears to be managing blood sugar levels adequately. 8. Home dose levothyroxine will restart in a.m. 01/30 9. Home dose losartan 100 mg daily was held today for surgery, plan to administer one-time 50 mg dose this evening and resume home dose of 100 mg 01/30 a.m. 10. Pain control with [place] 325-5 mg 1 tab every 4 hours as needed along with Dilaudid 0.2 mg IV every 2 hours as needed 11. Continue n.p.o. status until awake fully from anesthesia and passes swallow evaluation, LR at 20 cc an hour until taking oral 12. Protonix 40 mg IV daily for GI prophylaxis 13. SCDs for DVT prophylaxis until chemical prophylaxis cleared by neurosurgery 14. Full code Assessment and plan of care to be discussed with Inspection Supervisor, see addendum to follow Critical Care time 40 minutes Used voice recognition software for this dictation, please be aware for typos and grammatical errors Problem List/Past Medical History Ongoing Brain neoplasm tissue sample Diabetes mellitus Gait difficulty GERD - Gastro-esophageal reflux disease Hearing loss Hyperlipidemia Hypertension Hypothyroidism Neck pain Osteoarthritis STRESS INCONTINENCE, FEMALE Procedure/Surgical History No qualifying data available. Medications Inpatient Apresoline, 10 mg= 0.5 mL, IV Push, q2h, PRN Colace, 100 mg= 1 cap(s), Oral, BID, PRN Decadron, 4 mg= 1 mL, IV Push, TID Dextrose 50% IV Push, 12.5 gram(s)= 25 mL, IV Push, AsDirected, PRN Dilaudid, 0.2 mg= 0.2 mL, IV Push, q2h, PRN Ditropan XL, 10 mg= 2 tab(s), Oral, qDay HumaLOG 100 units/mL subcutaneous solution, 10 unit(s)= 0.1 mL, Subcutaneous, TIDAC HumaLOG 100 units/mL subcutaneous solution, Give 0-10 units/dose, Subcutaneous, TIDAC Kefzol, 1 gram(s)= 10 mL, IV Push (INT), q6hr Lantus, 30 unit(s)= 0.3 mL, Subcutaneous (INT), qAM levothyroxine, 112 mcg= 1 tab(s), Oral, qDay losartan, 100 mg= 1 tab(s), Oral, Daily Milk of Magnesia, 30 mL, Oral, qHS, PRN [place] 325- 5 mg oral tablet, 1 tab(s), Oral, q4h, PRN NS 1,000 mL, 1000 mL, Intravenous Protonix, 40 mg, IV Push, qDayAC Tylenol, 650 mg= 2 tab(s), Oral, q4h, PRN venlafaxine, 75 mg= 1 tab(s), Oral, qDay Zofran, 4 mg= 2 mL, IV Push, q4h, PRN Home levothyroxine, 112 mcg, Oral, qDay losartan 100 mg oral tablet, 100 mg= 1 tab(s), Oral, Daily meloxicam 7.5 mg oral tablet, 7.5 mg= 1 tab(s), Oral, BID, Not taking Ozempic 2 mg/3 mL (0.25 mg or 0.5 mg dose) subcutaneous solution, 0.25 mg, Subcutaneous, qWeek solifenacin 10 mg oral tablet, 10 mg= 1 tab(s), Oral, qDay venlafaxine 75 mg oral tablet, 75 mg= 1 tab(s), Oral, qDay Allergies Bee Stings Unknown Latex Unknown codeine Unknown tetanus immune globulin Unknown Social History Alcohol Use: Never., 01/20/2024 Substance Abuse Use: Never., 01/20/2024 Tobacco Nicotine Use: Never (less than 100 in lifetime)., 01/20/2024 Immunizations No qualifying data available. Digitally Signed by LAURYN VILLAR on 01/30/2024 04:53 PM [id number] Date of Service 01/30/2024 Taken to the OR today for debulking and biopsy of intracranial mass. Plan to transfer to the ICU post operatively. Hospitalist team will sign off. Digitally Signed by CARROL GORDON on 01/30/2024 08:53 AM [id number] An[facility]iology Consult note Patient: TERENCE VALDIVIA Age: 73 years Sex: Female : 1950 Associated Diagnoses: None Author: LÁZARO FRANCISCO MD Preoperative Information Time of last food or liquid consumption: 01/30/2024 00:00:00 Anesthesia history Patient's history: negative. Family's history: negative. History of Present Illness The patient presents for preanesthesia evaluation with Patient is a 73-year-old female presents forneurosurgery to address an intracranial mass. She states she is active with some limitations due toweakness/giving out of her left side. She denies cardiopulmonary limitations, symptoms of ischemia, prior history of CAD or cardiac interventions. He does have a history of hypertension and hypercholesterolemia, gastroesophageal reflux disease, hypothyroidism, and diabetes. Her preoperative bloodglucose is 177 mg/dL. Her EKG is normal sinus rhythm without changes just for ischemia. She denies any seizures with her brain mass, she also denies any prior anesthetic issues. She has multiple allergies which are reviewed. She has no symptoms of reflux on the day of surgery. I reviewed her chart,studies, labs, consultations. I spoke with her at length of the anesthetic plan and risks, she verbalized understanding and signed consent to proceed with general esthesia for planned procedure, A-line for hemodynamic monitoring, postoperative ICU admission. She is amenable receiving a blood transfusion should she need 1 during the course of the operation. Of note this is a late entry documentation. Patient verbalized understanding and signed consent to proceed with general anesthesia for planned procedure. Health Status Allergies: Allergic Reactions (Selected) Severity Not Documented Bee Stings- Unknown. Codeine- Unknown. Latex- Unknown. Tetanus immune globulin- Unknown., Allergies (4) ActiveSeverityReaction Bee StingsUnknown codeineUnknown LatexUnknown tetanus immune globulinUnknown Current medications: (Selected) Inpatient Medications Ordered Apresoline: 10 mg, 0.5 mL, IV Push, q2h, PRN: Systolic BP: See order comments Colace: 100 mg, 1 cap(s), Oral, BID, PRN: Constipation Decadron: 4 mg, 1 mL, IV Push, TID Dextrose 50% IV Push: 12.5 gram(s), 25 mL, IV Push, AsDirected, PRN: Hypoglycemia Ditropan XL: 10 mg, 2 tab(s), Oral, qDay HumaLOG 100 units/mL subcutaneous solution: 10 unit(s), 0.1 mL, Subcutaneous, TIDAC HumaLOG 100 units/mL subcutaneous solution: Give 0-10 units/dose, Subcutaneous, TIDAC Kefzol: 2 gram(s), 20 mL, 240 mL/hr, IV Push (INT), PREOP pharm Lantus: 30 unit(s), 0.3 mL, 0 mL/hr, Subcutaneous (INT), qAM Milk of Magnesia: 30 mL, Oral, qHS, PRN: Constipation NS 1,000 mL: 100 mL/hr, Intravenous Protonix: 40 mg, 1 tab(s), Oral, qDayAC Tylenol: 650 mg, 2 tab(s), Oral, q4h, PRN: Pain, scale 1-6 Zofran: 4 mg, 2 mL, IV Push, q4h, PRN: Nausea/Vomiting levothyroxine: 112 mcg, 1 tab(s), Oral, qDay losartan: 100 mg, 1 tab(s), Oral, Daily venlafaxine: 75 mg, 1 tab(s), Oral, qDay Documented Medications Documented Ozempic 2 mg/3 mL (0.25 mg or 0.5 mg dose) subcutaneous solution: 0.25 mg, Subcutaneous, qWeek, rotate injection sites, 1 EA, 0 Refill(s) levothyroxine: 112 mcg, Oral, qDay, 0 Refill(s) losartan 100 mg oral tablet: 100 mg, 1 tab(s), Oral, Daily, 100 tab(s), 0 Refill(s) meloxicam 7.5 mg oral tablet: 7.5 mg, 1 tab(s), Oral, BID, 0 Refill(s) solifenacin 10 mg oral tablet: 10 mg, 1 tab(s), Oral, qDay, 30 tab(s), 0 Refill(s) venlafaxine 75 mg oral tablet: 75 mg, 1 tab(s), Oral, qDay, for 30 day(s), 0 Refill(s), Medications (17) Active Scheduled: (10) ceFAZolin syringe 2 gram(s) 20 mL, IV Push (INT), PREOP pharm dexamethasone 4 mg/1 mL solution 4 mg 1 mL, IV Push, TID insulin glargine 30 unit(s) 0.3 mL, Subcutaneous (INT), qAM insulin lispro 100 units/mL Soln (3 mL) Give 0-10 units/dose, Subcutaneous, TIDAC insulin lispro 100 units/mL Soln (3 mL) 10 unit(s) 0.1 mL, Subcutaneous, TIDAC levothyroxine 112 mcg tablet 112 mcg 1 tab(s), Oral, qDay losartan 100 mg tablet 100 mg 1 tab(s), Oral, Daily oxybutynin 5 mg ER tablet 10 mg 2 tab(s), Oral, qDay pantoprazole 40 mg EC tablet 40 mg 1 tab(s), Oral, qDayAC venlafaxine 75 mg Tablet 75 mg 1 tab(s), Oral, qDay Continuous: (1) NS (0.9% nacl) 1,000 mL 1,000 mL, Intravenous, 100 mL/hr PRN: (6) acetaminophen 325 mg Tablet 650 mg 2 tab(s), Oral, q4h dextrose 50% Solution Disp syringe 50 mL 12.5 gram(s) 25 mL, IV Push, AsDirected docusate sodium 100 mg Capsule 100 mg 1 cap(s), Oral, BID hydralazine 20 mg/mL (1mL) vial 10 mg 0.5 mL, IV Push, q2h magnesium hydroxide 8% Suspension 30 mL UD 30 mL, Oral, qHS ondansetron 2 mg/ 1 mL 2 mL INJ 4 mg 2 mL, IV Push, q4h Problem list: Medical Brain neoplasm tissue sample / SNOMED CT [id number] / Confirmed Diabetes mellitus / SNOMED CT 300257602 / Confirmed STRESS INCONTINENCE, FEMALE / SNOMED CT 368497445 / Confirmed Gait difficulty / SNOMED CT 490241081 / Confirmed GERD - Gastro-esophageal reflux disease / SNOMED CT 4429619685 / Confirmed Hearing loss / SNOMED CT 43707786 / Confirmed Hyperlipidemia / SNOMED CT 26628443 / Confirmed Hypertension / SNOMED CT 33612397 / Confirmed Hypothyroidism / SNOMED CT 92944045 / Confirmed Neck pain / SNOMED CT 262984571 / Confirmed Osteoarthritis / SNOMED CT 5533764919 / Confirmed, Active Problems (11) Brain neoplasm tissue sample Diabetes mellitus Gait difficulty GERD - Gastro-esophageal reflux disease Hearing loss Hyperlipidemia Hypertension Hypothyroidism Neck pain Osteoarthritis STRESS INCONTINENCE, FEMALE Histories Past Medical History: No active or resolved past medical history items have been selected or recorded. Family History: No family history items have been selected or recorded. Procedure history: No active procedure history items have been selected or recorded. Social History: Social & Psychosocial Habits Alcohol 01/20/2024 Use: Never Substance Abuse 01/20/2024 Use: Never Tobacco 01/20/2024 Tobacco Use: Never (less than 100 in l Physical Examination Vital Signs 01/30/2024 7:50 EST Heart Rate Monitored 57 bpm bpm Respiratory Rate - Anes 1 br/min br/min 01/30/2024 7:49 EST Systolic Blood Pressure Non-Invasive 187 mmHg mmHg Diastolic Blood Pressure Non-Invasive 70 mmHg mmHg 01/30/2024 7:46 EST Systolic Blood Pressure Non-Invasive 181 mmHg mmHg Diastolic Blood Pressure Non-Invasive 78 mmHg mmHg 01/30/2024 7:45 EST Respiratory Rate - Anes 0 br/min br/min 01/30/2024 2:37 EST Temperature Oral 36.4 DegC Apical Heart Rate 58 bpm LOW Respiratory Rate 18 br/min Systolic Blood Pressure Non-Invasive 149 mmHg HI Diastolic Blood Pressure Non-Invasive 66 mmHg Blood Pressure Method Automatic Blood Pressure Location Right arm Blood Pressure Cuff Size Medium Reason For Taking VItal Signs Routine 01/29/2024 22:38 EST Temperature Oral 36.7 DegC Heart Rate Monitored 57 bpm LOW Respiratory Rate 16 br/min Systolic Blood Pressure Non-Invasive 141 mmHg HI Diastolic Blood Pressure Non-Invasive 69 mmHg Reason For Taking VItal Signs Routine 01/29/2024 19:26 EST Temperature Oral 36.7 DegC Peripheral Pulse Rate 61 bpm Respiratory Rate 16 br/min Systolic Blood Pressure Non-Invasive 147 mmHg HI Diastolic Blood Pressure Non-Invasive 94 mmHg HI Reason For Taking VItal Signs Routine 01/29/2024 14:47 EST Temperature Oral 36.7 DegC Peripheral Pulse Rate 63 bpm Respiratory Rate 16 br/min Systolic Blood Pressure Non-Invasive 147 mmHg HI Diastolic Blood Pressure Non-Invasive 70 mmHg Reason For Taking VItal Signs Routine 01/29/2024 10:27 EST Temperature Oral 36.6 DegC Peripheral Pulse Rate 56 bpm LOW Respiratory Rate 18 br/min Systolic Blood Pressure Non-Invasive 156 mmHg HI Diastolic Blood Pressure Non-Invasive 61 mmHg 01/29/2024 7:58 EST Peripheral Pulse Rate 60 bpm 01/29/2024 6:55 EST Temperature Oral 36.5 DegC Peripheral Pulse Rate 55 bpm LOW Respiratory Rate 18 br/min Systolic Blood Pressure Non-Invasive 138 mmHg Diastolic Blood Pressure Non-Invasive 66 mmHg 01/29/2024 2:23 EST Temperature Oral 36.4 DegC Peripheral Pulse Rate 54 bpm LOW Respiratory Rate 18 br/min Systolic Blood Pressure Non-Invasive 142 mmHg HI Diastolic Blood Pressure Non-Invasive 59 mmHg LOW Blood Pressure Method Automatic Blood Pressure Location Right arm Reason For Taking VItal Signs Routine Vital Signs (last 24 hrs) Last Charted Temp Oral36.4 DegC (JAN 29 02:37) Heart Rate [id number] bpm (JAN 29 07:50) [id number] mmHg (JAN 29 07:49) DBP70 mmHg (JAN 29 07:49) Pain assessment: Pain Assessment 01/29/2024 20:09 EST Primary Pain Intensity 0 Pain Scale Type 0-10 Pain scale 01/29/2024 7:58 EST Primary Pain Intensity 0 Pain Scale Type 0-10 Pain scale . General: Alert and oriented, No acute distress. Airway: Normal mouth. Mallampati classification: II (soft palate, fauces, uvula visible). Head: Normocephalic, Atraumatic. Dentition Evaluation: Missing teeth. Neck: Supple, Non-tender. Respiratory: Lungs are clear to auscultation, Respirations are non-labored. Cardiovascular: Normal rate, Regular rhythm. Heart Sounds: Normal. Neurologic: Alert, Oriented. Review / Management Results review: Labs (Last four charted values) WBC 9.5(JAN 29)9.4(JAN 28)9.2(JAN 27)H 11.7(JAN 26) Hgb 14.2(JAN 29)14.6(JAN 28)14.1(JAN 27)14.0(JAN 26) Hct 41.2(JAN 29)41.4(JAN 28)40.0(JAN 27)39.7(JAN 26) Plt 246(JAN 29)236(JAN 28)226(JAN 27)240(JAN 26) Na 141(JAN 29)141(JAN 28)140(JAN 27)140(JAN 26) K 4.2(JAN 29)4.0(JAN 28)4.0(JAN 27)4.1(JAN 26) CO2 25(JAN 29)24(JAN 28)25(JAN 27)27(JAN 26) Cl 108(JAN 29)106(JAN 28)106(JAN 27)103(JAN 26) Cr 0.74(JAN 29)0.74(JAN 28)0.74(JAN 27)0.91(JAN 26) BUN 18.0(JAN 29)17.0(JAN 28)18.0(JAN 27)19.0(JAN 26) Glucose H 177(JAN 29)H 183(JAN 28)H 231(JAN 27)H 231(JAN 26) Ca 9.1(JAN 29)9.2(JAN 28)9.2(JAN 27)9.4(JAN 26) PT 11.6(JAN 29)11.7(JAN 25) INR 1.0(JAN 29)1.0(JAN 25) PTT L 24.9(JAN 29)27.5(JAN 25) , Lab results 01/30/2024 7:50 EST Heart Rate Monitored 57 bpm bpm Respiratory Rate - Anes 1 br/min br/min Oxygen Saturation 100 % % 01/30/2024 7:49 EST Systolic Blood Pressure Non-Invasive 187 mmHg mmHg Diastolic Blood Pressure Non-Invasive 70 mmHg mmHg 01/30/2024 7:46 EST Systolic Blood Pressure Non-Invasive 181 mmHg mmHg Diastolic Blood Pressure Non-Invasive 78 mmHg mmHg 01/30/2024 7:45 EST Respiratory Rate - Anes 0 br/min br/min 01/30/2024 7:43 EST SN - CTm - Anesthesia Start Time Anesthesia Start 01/30/2024 7:34 EST SN - CAt - Case Attendee SN - CAt - Case Attendee 01/30/2024 7:06 EST SN - Proc - Anesthesia Type General SN - Proc - Actual Procedure RIGHT PARIETAL CRANIOTOMY FOR DEBULKING OF TUMOR 01/30/2024 7:06 EST SN - SP - Prep Agents Betadine Solution SN - SP - HR - Method Clipped in OR 01/30/2024 7:05 EST SN - PP - Body Position Prone Standard Intra-op 01/30/2024 7:04 EST SN - PTCare - Thermals Forced Air Warming Device Lower Body SN - PTCare - Anti-thromboembolism Chloé Sequential Compression Device (SCD) 01/30/2024 7:03 EST MRI Brain w/ Contrast MRI BRAIN W/ CONTRAST 01/30/2024 7:03 EST SN - GCD - Post-operative Diagnosis BRAIN TUMOR SN - GCD - Case Level Level 5 01/30/2024 7:00 EST SN - CAt - Case Attendee SN - CAt - Case Attendee SN - CAt - Case Attendee SN - CAt - Case Attendee SN - CAt - Case Attendee SN - CAt - Case Attendee SN - CAt - Case Attendee SN - CAt - Case Attendee SN - CAt - Case Attendee SN - CAt - Case Attendee SN - CAt - Case Attendee SN - CAt - Case Attendee SN - CAt - Case Attendee SN - CAt - Case Attendee SN - CAt - Role Performed Primary Surgeon SN - CAt - Role Performed Anesthesiologist SN - CAt - Role Performed TUBE CLEANING OPERATOR SN - CAt - Role Performed Bed And Breakfast Operator 1 SN - CAt - Role Performed Scrub 1 SN - CAt - Role Performed Floor Coverings Salesperson 1 SN - CAt - Role Performed Floor Coverings Salesperson 2 SN - CAt - Role Performed Other Personnel 01/30/2024 6:59 EST Sodium Chloride 0.9% 800 mL mL 01/30/2024 6:29 EST MRSA/MSSA Protocol Yes 01/30/2024 6:00 EST levothyroxine Not Done: Patient NPO (Not Done) pantoprazole Not Done: Patient NPO (Not Done) 01/30/2024 5:59 EST WBC 9.5 10^3/mcL RBC 4.32 10^6/mcL Hgb 14.2 G/dL Hct 41.2 % MCV 95.2 fL MCH 32.9 pg MCHC 34.5 G/dL RDW 12.8 % Platelet 246 10^3/mcL MPV 7.2 fL Neutrophil % 83.0 % HI Lymphocyte % 10.9 % LOW Monocyte % 5.8 % Eosinophil % 0.2 % Basophil % 0.1 % Neutrophil, Absolute 7.9 10^3/mcL Lymphocyte, Absolute 1.0 10^3/mcL Monocyte, Absolute 0.5 10^3/mcL Eosinophil, Absolute 0.0 10^3/mcL Basophil, Absolute 0.0 10^3/mcL APTT 24.9 seconds LOW Protime 11.6 seconds PT International Ratio 1.0 ratio NA Fibrinogen 284 mg/dL Glucose Level 177 mg/dL HI Sodium Level 141 mEq/L Potassium Level 4.2 mEq/L Chloride 108 mEq/L CO2 25 mEq/L Electrolyte Balance 8.0 mEq/L BUN 18.0 mg/dL Creatinine Lvl (s) 0.74 mg/dL BUN/Creatinine Ratio 24.3 ratio HI Calcium Lvl 9.1 mg/dL GFR Non- >60 ml/min/1.73sqm NA GFR >60 ml/min/1.73sqm NA Creatinine Clearance Calc 63.34 mL/min 01/30/2024 5:15 EST CHG Preoperative Wash/Wipe Day of procedure Non-CHG Preoperative Shampoo Shampoo, Bath-cap Linen Change Done 01/30/2024 3:08 EST Neurological Language Able to speak clearly Extremity Movement Unequal Swallowing Difficulty None Characteristics of Communication Appropriate Characteristics of Speech Clear Facial Symmetry Symmetric Aspiration Risk None LEVAR Yes Pupil Size, Left 3 mm Pupil Size, Right 3 mm Left Upper Extremity Strength Weak Right Upper Extremity Strength Moderate Left Lower Extremity Strength Weak Right Lower Extremity Strength Moderate 01/30/2024 3:07 EST Mechanical VTE Prophylaxis Education Education deferred- patient sleeping Mechanical VTE Prophylaxis Education Not Done: Task Duplication (Not Done) Mechanical VTE Prophylaxis Education Not Done: Task Duplication (Not Done) Sequential Compression Device bilateral knee high applied/on Sequential Compression Device Not Done: Task Duplication (Not Done) Sequential Compression Device Not Done: Task Duplication (Not Done) Sequential Compression Device Form Not Done (Not Done) Sequential Compression Device Form Not Done (Not Done) Sequential Compression Device Form Sequential Compression Device Form 01/30/2024 3:04 EST Cardiac Rhythm Sinus rhythm Monitoring Lead II, V1/MCL1 Alarms On and Functional Yes Heart Rate Alarm Set At - Low 50 Heart Rate Alarm Set At - High 120 Continuous IV Infusions [email or web address] [email or web address] Left 01/25/2024 20 gauge Peripheral IV Activity: Assessed Peripheral IV Dressing Condition: Clean, Dry, Intact Peripheral IV Dressing Activity: Transparent dressing Peripheral IV Site Condition: No complications Peripheral IV Equipment: PRN Adaptor Forearm Left 01/25/2024 20 gauge Peripheral IV Activity: Assessed Peripheral IV Dressing Condition: Clean, Dry, Intact Peripheral IV Dressing Activity: Transparent dressing Peripheral IV Line Status/Patency: Continuous infusion Peripheral IV Site Condition: No complications Peripheral IV Equipment: IV Pump Positioning Repositions self Activity Status ADL Sleeps intermittently Nurse Safety Checks q2hrs Performed 3am-7am Standard Safety Safety level maintained High Risk Safety Room check performed 01/30/2024 2:37 EST Temperature Oral 36.4 DegC Apical Heart Rate 58 bpm LOW Respiratory Rate 18 br/min Systolic Blood Pressure Non-Invasive 149 mmHg HI Diastolic Blood Pressure Non-Invasive 66 mmHg Blood Pressure Method Automatic Blood Pressure Location Right arm Blood Pressure Cuff Size Medium Reason For Taking VItal Signs Routine Oxygen Therapy Room air Oxygen Saturation 95 % Positioning Repositions self Activity Status ADL Sleeping Standard Safety ID band on, Safety level maintained High Risk Safety Room check performed 01/30/2024 0:40 EST Continuous IV Infusions [email or web address] Left 01/25/2024 20 gauge Peripheral IV Activity: Assessed Peripheral IV Dressing Condition: Clean, Dry, Intact Peripheral IV Dressing Activity: Transparent dressing Peripheral IV Site Condition: No complications Peripheral IV Equipment: PRN Adaptor Forearm Left 01/25/2024 20 gauge Peripheral IV Activity: Assessed Peripheral IV Dressing Condition: Clean, Dry, Intact Peripheral IV Dressing Activity: Transparent dressing Peripheral IV Line Status/Patency: Continuous infusion Peripheral IV Site Condition: No complications Peripheral IV Equipment: IV Pump Positioning Repositions self Activity Status ADL Sleeping quietly with easy respirations Nurse Safety Checks q2hrs Performed 11pm-3am Standard Safety ID band on, Call device within reach, Bed in low position, Wheels locked, Upper/Half-Length side-rails up, Phone within reach, personal items within reach, Assistive devices within reach, Safety level maintained High Risk Safety Room check performed 01/29/2024 23:40 EST Cardiac Rhythm Sinus rhythm Monitoring Lead II, V1/MCL1 [place] Interval 0.14 second(s) QRS Duration 0.10 second(s) QT Interval 0.43 second(s) QTc Interval 0.40 second(s) Alarms On and Functional Yes Heart Rate Alarm Set At - Low 50 Heart Rate Alarm Set At - High 120 01/29/2024 23:00 EST Oral Intake 0 mL Stool Count 0 EA Urine Voided 400 mL Urine Voided 200 mL 01/29/2024 22:59 EST Sodium Chloride 0.9% 800 mL mL 01/29/2024 22:38 EST Temperature Oral 36.7 DegC Heart Rate Monitored 57 bpm LOW Respiratory Rate 16 br/min Systolic Blood Pressure Non-Invasive 141 mmHg HI Diastolic Blood Pressure Non-Invasive 69 mmHg Reason For Taking VItal Signs Routine Oxygen Therapy Room air Oxygen Saturation 93 % Positioning Repositioned right side 01/29/2024 22:00 EST Mechanical VTE Prophylaxis Education Education deferred- patient sleeping Sequential Compression Device bilateral knee high applied/on Sequential Compression Device Form Sequential Compression Device Form 01/29/2024 21:29 EST dexAMETHasone 4 mg mg 01/29/2024 21:19 EST Blood Glucose, Capillary 197 mg/dL HI Blood Glucose Testing Reason Routine 01/29/2024 20:47 EST CHG Preoperative Wash/Wipe Night before procedure Linen Change Done 01/29/2024 20:09 EST Primary Pain Intensity 0 Pain Scale Type 0-10 Pain scale Nail Bed Color Truman Capillary Refill < 2 seconds Heart Rhythm Regular Dorsalis Pedis Pulse, Left 2+ Normal Dorsalis Pedis Pulse, Right 2+ Normal Radial Pulse, Left 2+ Normal Radial Pulse, Right 2+ Normal Respirations Unlabored Respiratory Pattern Regular Breath Sounds Auscultated Anterior only All Lobes Breath Sounds Clear Abdomen Description Non-distended, Soft Abdomen Palpation Non-Tender Passing Flatus Yes Bowel Sounds All Quadrants Present Urinary Elimination Voiding, no difficulties Skin Symptoms Bruising All Extremity Description Truman Skin Temperature Warm Temperature All Extremities Warm Skin Description Truman, Dry Skin Integrity Intact Skin Turgor Non-Elastic Mucous Membrane Color Truman Mucous Membrane Description Moist Neurological Language Able to speak clearly Neurological Symptoms Blurred vision Extremity Movement Unequal Swallowing Difficulty None Characteristics of Communication Appropriate Characteristics of Speech Clear Facial Symmetry Symmetric Level of Consciousness Alert Aspiration Risk None LEVAR Yes Left Pupil Description Regular Right Pupil Description Regular Left Pupil Reaction Brisk Right Pupil Reaction Brisk Pupil Size, Left 3 mm Pupil Size, Right 3 mm Left Upper Extremity Strength Weak (Modified) Right Upper Extremity Strength Moderate Left Lower Extremity Strength Weak Right Lower Extremity Strength Moderate Affect/Behavior Appropriate, Calm, Cooperative Orientation Oriented x 4 01/29/2024 20:07 EST Cardiac Rhythm Sinus rhythm Monitoring Lead II, V1/MCL1 Alarms On and Functional Yes Heart Rate Alarm Set At - Low 50 Heart Rate Alarm Set At - High 120 Continuous IV Infusions [email or web address] Left 01/25/2024 20 gauge Peripheral IV Activity: Assessed Peripheral IV Dressing Condition: Clean, Dry, Intact Peripheral IV Dressing Activity: Transparent dressing Peripheral IV Site Condition: No complications Peripheral IV Equipment: PRN Adaptor Forearm Left 01/25/2024 20 gauge Peripheral IV Activity: Assessed Peripheral IV Dressing Condition: Clean, Dry, Intact Peripheral IV Dressing Activity: Transparent dressing Peripheral IV Line Status/Patency: Continuous infusion Peripheral IV Site Condition: No complications Peripheral IV Equipment: IV Pump Safety Measures Education Fall prevention, Call light use Safety Teaching Evaluation Verbalizes/Nonverbally indicates understanding Positioning Repositions self Activity Status ADL Awake, Resting Nurse Safety Checks q2hrs Performed 7pm-11pm Standard Safety ID band on, Call device within reach, Bed in low position, Wheels locked, Upper/Half-Length side-rails up, Phone within reach, personal items within reach, Assistive devices within reach, Safety level maintained High Risk Safety Room check performed 01/29/2024 19:26 EST Temperature Oral 36.7 DegC Peripheral Pulse Rate 61 bpm Respiratory Rate 16 br/min Systolic Blood Pressure Non-Invasive 147 mmHg HI Diastolic Blood Pressure Non-Invasive 94 mmHg HI Reason For Taking VItal Signs Routine Oxygen Therapy Room air Oxygen Saturation 92 % LOW Positioning Repositions self Activity Status ADL Awake Standard Safety ID band on, Allergy Band on, Call device within reach Demonstrates Correct Call Light Use Yes 01/29/2024 18:20 EST Ambulation Up with assistance Positioning Repositions self Up to Chair Returned to bed Activity Status ADL Awake Sequential Compression Device bilateral knee high applied/on Nurse Safety Checks q2hrs Performed 7am-7pm 01/29/2024 18:14 EST Sodium Chloride 0.9% Begin Bag 500 mL mL 01/29/2024 16:55 EST insulin lispro 10 unit(s) unit(s) 01/29/2024 16:48 EST insulin lispro 2 unit(s) unit(s) 01/29/2024 16:45 EST dexAMETHasone 4 mg mg 01/29/2024 16:27 EST Blood Glucose, Capillary 165 mg/dL HI Blood Glucose Testing Reason Routine 01/29/2024 16:16 EST Continuous IV Infusions [email or web address] [email or web address] Left 01/25/2024 20 gauge Peripheral IV Activity: Assessed Peripheral IV Dressing Condition: Clean, Dry, Intact Peripheral IV Dressing Activity: Transparent dressing Peripheral IV Site Condition: No complications Peripheral IV Equipment: PRN Adaptor Forearm Left 01/25/2024 20 gauge Peripheral IV Activity: Assessed Peripheral IV Dressing Condition: Clean, Dry, Intact Peripheral IV Dressing Activity: Transparent dressing Peripheral IV Line Status/Patency: Continuous infusion Peripheral IV Site Condition: No complications Peripheral IV Equipment: IV Pump Ambulation Up with assistance Up to Chair Up to chair 01/29/2024 15:10 EST Ambulation Up with assistance Positioning Repositions self Up to Chair Returned to bed Sequential Compression Device bilateral knee high applied/on 01/29/2024 15:00 EST Oral Intake 150 mL Oral Intake 100 mL Stool Count 0 EA Urine Count 1 EA Urine Count 1 EA Urine Count 0 EA 01/29/2024 14:59 EST Sodium Chloride 0.9% 800 mL mL 01/29/2024 14:57 EST Cardiac Rhythm Sinus rhythm [place] Interval 0.17 second(s) QRS Duration 0.04 second(s) QT Interval 0.40 second(s) QTc Interval 0.42 second(s) Alarms On and Functional Yes Heart Rate Alarm Set At - Low 50 Heart Rate Alarm Set At - High 120 01/29/2024 14:47 EST Temperature Oral 36.7 DegC Peripheral Pulse Rate 63 bpm Respiratory Rate 16 br/min Systolic Blood Pressure Non-Invasive 147 mmHg HI Diastolic Blood Pressure Non-Invasive 70 mmHg Reason For Taking VItal Signs Routine Oxygen Therapy Room air Oxygen Saturation 94 % Positioning Repositions self Up to Chair Remains up in chair Activity Status ADL Awake Standard Safety ID band on, Allergy Band on, Call device within reach, Safety level maintained Demonstrates Correct Call Light Use Yes 01/29/2024 13:20 EST CAM Mental Status Change & Fluctuation Not Done: Task Duplication (Not Done) CAM Inattention Not Done: Task Duplication (Not Done) CAM Disorganized Thinking Not Done: Task Duplication (Not Done) CAM Altered Level of Consciousness Not Done: Task Duplication (Not Done) Confusion Assessment Method Score Not Done: Task Duplication (Not Done) Mechanical VTE Prophylaxis Education Not Done: Task Duplication (Not Done) Mechanical VTE Prophylaxis Education Not Done: Task Duplication (Not Done) Sequential Compression Device Not Done: Task Duplication (Not Done) Sequential Compression Device Not Done: Task Duplication (Not Done) Sequential Compression Device Form Not Done (Not Done) Sequential Compression Device Form Not Done (Not Done) 01/29/2024 12:36 EST Neurosurgery Progress Note Progress Note 01/29/2024 11:55 EST Cardiac Rhythm Sinus rhythm 01/29/2024 11:53 EST Respirations Unlabored Respiratory Pattern Regular Breath Sounds Auscultated Anterior and posterior Oxygen Therapy Room air Continuous IV Infusions NS@100 Antecubital Left 01/25/2024 20 gauge Peripheral IV Activity: Assessed Peripheral IV Dressing Condition: Clean, Dry, Intact Peripheral IV Dressing Activity: Transparent dressing Peripheral IV Site Condition: No complications Peripheral IV Equipment: PRN Adaptor Forearm Left 01/25/2024 20 gauge Peripheral IV Activity: Assessed Peripheral IV Dressing Condition: Clean, Dry, Intact Peripheral IV Dressing Activity: Transparent dressing Peripheral IV Line Status/Patency: Continuous infusion Peripheral IV Site Condition: No complications Peripheral IV Equipment: IV Pump Neurological Symptoms Blurred vision Level of Consciousness Alert Left Upper Extremity Strength Moderate Right Upper Extremity Strength Moderate Left Lower Extremity Strength Weak Right Lower Extremity Strength Moderate Affect/Behavior Appropriate, Calm, Cooperative Orientation Oriented x 4 01/29/2024 11:46 EST insulin lispro 2 unit(s) unit(s) insulin lispro 10 unit(s) unit(s) 01/29/2024 11:32 EST Blood Glucose, Capillary 160 mg/dL HI 01/29/2024 11:20 EST Ambulation Up with assistance Positioning Repositions self Activity Status ADL Up to bathroom 01/29/2024 10:58 EST Hospitalist Progress Note Progress Note 01/29/2024 10:27 EST Temperature Oral 36.6 DegC Peripheral Pulse Rate 56 bpm LOW Respiratory Rate 18 br/min Systolic Blood Pressure Non-Invasive 156 mmHg HI Diastolic Blood Pressure Non-Invasive 61 mmHg Oxygen Therapy Room air Oxygen Saturation 96 % 01/29/2024 9:30 EST CHG Preoperative Wash/Wipe Daily CHG bath Non-CHG Preoperative Shampoo Completed Bed Bath Independent, Setup, Bedside Hair Care Independent Oral Care Independent Linen Change Done 01/29/2024 8:30 EST Ambulation Device Utilized Front wheeled walker Worker's Comp Patient No OT Education Grid OT Education Grid OT Sit to Stand Min A OT Stand to Sit Min A OT Ambulation Level Moderate assistance OT Ambulation Distance 16 ft OT Ambulation Quality OT Ambulation Quality Put On Take Off Upper Body Clothing A Little (3) Put On Take Off Lower Body Clothing A Lot (2) Bathing? A Lot (2) Toileting? A Lot (2) Take Care Of Personal Grooming A Little (3) Eating Meals A Little (3) OT Update Discharge Recommendation No OT Plan for Next Treatment OT Plan for Next Treatment OT Initiate/Continue Treatment Yes Static Sitting Mod I Dynamic Sitting Mod I Static Standing Supervised Dynamic Standing Moderate assistance Daily Activity Raw Score 15 Occupational Therapy Daily Note Form Occupational Therapy Daily Note Form Occupational Therapy Progress Note OT Daily Note 01/29/2024 8:11 EST heparin 5,000 unit(s) unit(s) losartan 100 mg mg oxybutynin 10 mg mg venlafaxine 75 mg mg 01/29/2024 8:08 EST insulin glargine 30 unit(s) unit(s) 01/29/2024 8:00 EST insulin lispro Not Done: Below Sliding Scale (Not Done) 01/29/2024 7:58 EST Peripheral Pulse Rate 60 bpm Primary Pain Intensity 0 Pain Scale Type 0-10 Pain scale Nail Bed Color Truman Capillary Refill < 2 seconds Heart Rhythm Regular Radial Pulse, Left 2+ Normal Radial Pulse, Right 2+ Normal Respirations Unlabored Respiratory Pattern Regular Breath Sounds Auscultated Anterior only All Lobes Breath Sounds Clear Cough None Oxygen Therapy Room air Abdomen Description Non-distended Abdomen Palpation Non-Tender Bowel Continence Continent Bowel Sounds All Quadrants Present Urinary Elimination Voiding, no difficulties Facial Movement Symmetric resting/crying Skin Symptoms Bruising All Extremity Description Truman Skin Temperature Warm Temperature All Extremities Warm Skin Description Truman, Dry Skin Integrity Intact Skin Turgor Non-Elastic Mucous Membrane Color Truman Mucous Membrane Description Moist Sensory Perception Jaxon No impairment Moisture Jaxon Rarely moist Activity Jaxon Walks occasionally Mobility Jaxon Slightly limited Nutrition Jaxon Adequate Friction and Shear Jaxon No apparent problem Jaxon Score 20 Hospital Acquired Pressure Injury Risk None/minimal risk (score 19-23) Continuous IV Infusions NS@100 Antecubital Left 01/25/2024 20 gauge Peripheral IV Activity: Assessed Peripheral IV Dressing Condition: Clean, Dry, Intact Peripheral IV Dressing Activity: Transparent dressing Peripheral IV Line Status/Patency: Flushes easily, 3ml normal saline flush Peripheral IV Site Condition: No complications Peripheral IV Equipment: PRN Adaptor Forearm Left 01/25/2024 20 gauge Peripheral IV Activity: Assessed Peripheral IV Dressing Condition: Clean, Dry, Intact Peripheral IV Dressing Activity: Transparent dressing Peripheral IV Line Status/Patency: Continuous infusion Peripheral IV Site Condition: No complications Peripheral IV Equipment: IV Pump Neurological Language Able to speak clearly, Follows simple commands Neurological Symptoms Blurred vision Gait Unsteady Extremity Movement Unequal Swallowing Difficulty None Characteristics of Communication Appropriate Characteristics of Speech Clear Facial Symmetry Symmetric Level of Consciousness Alert Aspiration Risk None Eye Opening Response Isak Spontaneously Best Motor Response Isak Obeys simple commands Best Verbal Response [place] Oriented Isak Coma Score 15 LEVAR Yes Left Pupil Description Regular Right Pupil Description Regular Left Pupil Reaction Brisk Right Pupil Reaction Brisk Pupil Size, Left 3 mm Pupil Size, Right 3 mm Left Upper Extremity Strength Moderate Right Upper Extremity Strength Moderate Left Lower Extremity Strength Weak Right Lower Extremity Strength Moderate Left Upper Extremity Sensation Intact Right Upper Extremity Sensation Intact Left Lower Extremity Sensation Intact Right Lower Extremity Sensation Intact CN V Facial Sensation Corneal reflex present CN VII Facial Expression and Symmetry Facial movement symmetrical CN VIII Hearing Spoken word equally audible left/right CN IX, X Swallowing, Gag Reflex Swallowing present Schmitt Screen Daily History of Fall in Last 3 Months Schmitt Yes Presence of Secondary Diagnosis Schmitt Yes Use of Ambulatory Aid Schmitt Crutches, cane, walker IV/PRN Adapter Fall Risk Schmitt Yes Gait Weak or Impaired Fall Risk Schmitt Weak Mental Status Fall Risk Schmitt Oriented to own ability Schmitt Fall Risk Score 85 HI Violence Risk Confused No Violence Risk Irritable No Violence Risk Boisterous No Violence Risk Verbal Threats No Violence Risk Physical Threats No Violence Risk Attacking Objects No Violence Risk Predictor Score 0 Violence Risk Intervention None Affect/Behavior Appropriate, Calm, Cooperative Orientation Oriented x 4 Ambulation Up with assistance BMAT Existing Patient Condition/Safety No order for Strict Bedrest BMAT Level 1: Sit and Shake Sit, side bed/reach midline/shake hands BMAT Level 2: Stretch and Point Seated position, straighten 1 knee; Flex ankle & point toes BMAT Level 3: Stand Patient unable BMAT Mobility Level 2 Positioning Repositions self Mobility Assistance Level Minimum assistance Ambulation Patient Effort Fair Up to Chair Up to chair Sequential Compression Device bilateral knee high applied/on Breakfast Percent 100 % Standard Safety ID band on, Allergy Band on, Call device within reach, Bed in low position, Wheels locked, Upper/Half-Length side-rails up, Phone within reach, personal items within reach, Safety level maintained, Non-Slip footwear High Risk Safety Identified as high risk, Fall ID band on, Room located near nursing station, Door open, Bathroom light on, Non-Slip footwear, Room check performed, High risk door magnet present, Chair alert pad on Demonstrates Correct Call Light Use Yes insulin lispro 10 unit(s) unit(s) Stool Count 0 EA 01/29/2024 7:55 EST dexAMETHasone 4 mg mg 01/29/2024 7:50 EST Blood Glucose, Capillary 148 mg/dL HI 01/29/2024 7:00 EST Cardiac Rhythm Sinus rhythm Monitoring Lead II, V1/MCL1 [place] Interval 0.13 second(s) QRS Duration 0.07 second(s) QT Interval 0.39 second(s) QTc Interval 0.44 second(s) Alarms On and Functional Yes Heart Rate Alarm Set At - Low 50 Heart Rate Alarm Set At - High 120 Oral Intake 200 mL Urine Count 1 EA Urine Voided 800 mL 01/29/2024 6:55 EST Temperature Oral 36.5 DegC Peripheral Pulse Rate 55 bpm LOW Respiratory Rate 18 br/min Systolic Blood Pressure Non-Invasive 138 mmHg Diastolic Blood Pressure Non-Invasive 66 mmHg Oxygen Therapy Room air Oxygen Saturation 98 % Standard Safety ID band on, Call device within reach High Risk Safety Room check performed 01/29/2024 5:35 EST Sodium Chloride 0.9% Begin Bag 1,000 mL mL 01/29/2024 5:20 EST Facial Movement Makes facial grimaces Neurological Language Able to speak clearly Gait Unsteady Extremity Movement Unequal Swallowing Difficulty None Characteristics of Communication Appropriate Characteristics of Speech Clear Facial Symmetry Symmetric Aspiration Risk None LEVAR Yes Left Upper Extremity Strength Moderate Right Upper Extremity Strength Moderate Left Lower Extremity Strength Weak Right Lower Extremity Strength Moderate CN V Facial Sensation Corneal reflex present CN VII Facial Expression and Symmetry Facial movement symmetrical CN VIII Hearing Spoken word equally audible left/right CN IX, X Swallowing, Gag Reflex Swallowing present Oral Intake 100 mL Stool Count 0 EA Urine Count 1 EA 01/29/2024 5:19 EST Individuals Taught Patient Learning Readiness Willing to learn Barriers to Learning None evident Teaching Method Explanation Preferred Spoken Language Chadian Preferred Written Language Chadian 01/29/2024 5:18 EST Individuals Taught Patient Learning Readiness Willing to learn Barriers to Learning None evident Teaching Method Explanation Mechanical VTE Prophylaxis Education Purpose of Mechanical VTE Prophylaxis Mechanical VTE Prophylaxis Education Not Done: Task Duplication (Not Done) Teaching Evaluation Verbalizes/Nonverbally indicates understanding Sequential Compression Device bilateral knee high applied/on Sequential Compression Device Not Done: Task Duplication (Not Done) Sequential Compression Device Form Not Done (Not Done) Sequential Compression Device Form Sequential Compression Device Form 01/29/2024 5:17 EST levothyroxine 112 mcg mcg pantoprazole 40 mg mg 01/29/2024 5:08 EST WBC 9.4 10^3/mcL RBC 4.37 10^6/mcL Hgb 14.6 G/dL Hct 41.4 % MCV 94.7 fL MCH 33.3 pg HI MCHC 35.2 G/dL RDW 13.2 % Platelet 236 10^3/mcL MPV 7.4 fL Neutrophil % 80.5 % HI Lymphocyte % 12.5 % LOW Monocyte % 6.6 % Eosinophil % 0.1 % Basophil % 0.3 % Neutrophil, Absolute 7.5 10^3/mcL Lymphocyte, Absolute 1.2 10^3/mcL Monocyte, Absolute 0.6 10^3/mcL Eosinophil, Absolute 0.0 10^3/mcL Basophil, Absolute 0.0 10^3/mcL Glucose Level 183 mg/dL HI Sodium Level 141 mEq/L Potassium Level 4.0 mEq/L Chloride 106 mEq/L CO2 24 mEq/L Electrolyte Balance 11.0 mEq/L BUN 17.0 mg/dL Creatinine Lvl (s) 0.74 mg/dL BUN/Creatinine Ratio 23.0 ratio HI Calcium Lvl 9.2 mg/dL GFR Non- >60 ml/min/1.73sqm NA GFR >60 ml/min/1.73sqm NA Creatinine Clearance Calc 63.34 mL/min 01/29/2024 2:23 EST Temperature Oral 36.4 DegC Peripheral Pulse Rate 54 bpm LOW Respiratory Rate 18 br/min Systolic Blood Pressure Non-Invasive 142 mmHg HI Diastolic Blood Pressure Non-Invasive 59 mmHg LOW Blood Pressure Method Automatic Blood Pressure Location Right arm Reason For Taking VItal Signs Routine Oxygen Therapy Room air Oxygen Saturation 93 % Positioning Repositioned left side, Repositions self, Encouraged/reinforced importance of turning 01/29/2024 2:05 EST Blood Glucose, Capillary 187 mg/dL HI 01/29/2024 1:44 EST Facial Movement Makes facial grimaces Neurological Language Able to speak clearly Gait Unable to assess Extremity Movement Unequal Swallowing Difficulty None Characteristics of Communication Appropriate Characteristics of Speech Clear Facial Symmetry Symmetric Aspiration Risk None LEVAR Yes Left Upper Extremity Strength Moderate Right Upper Extremity Strength Moderate Left Lower Extremity Strength Weak Right Lower Extremity Strength Moderate CN V Facial Sensation Corneal reflex present CN VII Facial Expression and Symmetry Facial movement symmetrical CN VIII Hearing Spoken word equally audible left/right CN IX, X Swallowing, Gag Reflex Swallowing present Mechanical VTE Prophylaxis Education Not Done: Task Duplication (Not Done) Mechanical VTE Prophylaxis Education Not Done: Task Duplication (Not Done) Sequential Compression Device Not Done: Task Duplication (Not Done) Sequential Compression Device Not Done: Task Duplication (Not Done) Sequential Compression Device Form Not Done (Not Done) Sequential Compression Device Form Not Done (Not Done) 01/29/2024 1:22 EST Individuals Taught Patient Learning Readiness Willing to learn Barriers to Learning None evident Teaching Method Explanation Mechanical VTE Prophylaxis Education Purpose of Mechanical VTE Prophylaxis Mechanical VTE Prophylaxis Education Not Done: Task Duplication (Not Done) Teaching Evaluation Verbalizes/Nonverbally indicates understanding Sequential Compression Device bilateral knee high applied/on Sequential Compression Device Not Done: Task Duplication (Not Done) Sequential Compression Device Form Not Done (Not Done) Sequential Compression Device Form Sequential Compression Device Form 01/29/2024 0:25 EST heparin 5,000 unit(s) unit(s) Sodium Chloride 0.9% Begin Bag 1,000 mL mL 01/29/2024 0:00 EST Anticoag. Med Educated Heparin Reason/Purpose of Anticoagulant DVT prophylaxis Anticoagulation Medication Dose / Route / Schedule Anticoag Med(s) Teaching Evaluation Verbalizes/Nonverbally indicates understanding . Assessment and Plan [place] [employer] ([employer]A) physical status classification: Class IV. Anesthetic Preoperative Plan Premedication: intravenous. Anesthetic technique: General. Induction: intravenously. Maintenance airway: Oral endotracheal tube. Special techniques: SSEP Monitoring, field avoidance. Special Monitoring: Arterial line. Postoperative pain management: Per surgeon. Risks discussed: nausea, vomiting, headache, sore throat, dental injury, hypotension, allergic reaction, serious complications. Informed consent: signed by patient. Notes: Patient identified, medical record reviewed, medical history reviewed with patient. Assessment performed. Plan prescribed discussed with patient including risks. Inquiries invited and addressed. Consent signed by patient, pt agrees to proceed with GA for planned procedure, A-line for hemodynamic monitoring, possible blood transfusion, planned SICU postoperative, possible continued mechanical ventilation Of note this is a late entry documentation due to involvement with patient care and inability to document prior to the start of the anesthetic. I reviewed the patient's medical record, completed a preoperative evaluation, performed and assessment, prescribed a plan of anesthesia, and discussed thisplan with the patient prior to the induction of anesthesia. The of this care delivered resulted after the anesthesia start time.. Digitally Signed by LÁZARO FRANCISCO MD on 01/30/2024 08:00 AM [id number] ORIGINAL EXAMINATION: MRI OF THE BRAIN WITH CONTRAST 01/30/2024 7:07 am TECHNIQUE: Multiplanar multisequence MRI of the head/brain was performed with the administration of intravenous contrast. COMPARISON: MRI brain 01/26/2024. HISTORY: ORDERING SYSTEM PROVIDED HISTORY: Reason for Exam: Stealth MRI for surgical planning FINDINGS: MRI of the brain is obtained for surgical planning with fiducial markers in place. There is multilobulated partially cystic rim enhancing mass in the right parietal/occipital region measuring up to 3.7 x 4.2 by 4.0 cm ( transverse by AP by craniocaudal) with extensive surrounding edema. There is effacement of the posterior horn of the right lateral ventricle without with about 3 mm of shift of the midline structures to the left. 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 Interpreted by: Iraj Genao Preliminary Report By: Iraj Genao Electronically signed By Iraj Genao Dictated Date: 01/30/2024 7:14:06 AM Prelim Date: 01/30/2024 7:26:17 AM Sign Date: 01/30/2024 7:26:17 AM Ordering Provider: [facility]12-01-2024 Neurological surgery Progress note Date of Service 01/29/2024 Subjective No complaints Objective Vitals and Measurements T: 36.6 C (Oral) TMIN: 36.4 C (Oral) TMAX: 36.7 C (Oral) HR: 56 RR: 18 BP: 156/61 SpO2: 96% Intake and Output 7AM Yesterday to 7AM Today Intake and Output (Last 24 hours) Intake Oral Intake 300.00 Output Urine Voided 400.00 Stool Count 0.00 Urine Count 5.00 Total Summary Total Intake 300.00 Total Output 400.00 Fluid Balance -100.00 Physical Exam Alert, oriented x 4 Profound left visual-spatial deficits Weight Dosing Weight: 81.2 kg (01/25/24) Medications Medications (17) Active Scheduled: (10) ceFAZolin syringe 2 gram(s) 20 mL, IV Push (INT), PREOP pharm dexamethasone 4 mg/1 mL solution 4 mg 1 mL, IV Push, TID insulin glargine 30 unit(s) 0.3 mL, Subcutaneous (INT), qAM insulin lispro 100 units/mL Soln (3 mL) Give 0-10 units/dose, Subcutaneous, TIDAC insulin lispro 100 units/mL Soln (3 mL) 10 unit(s) 0.1 mL, Subcutaneous, TIDAC levothyroxine 112 mcg tablet 112 mcg 1 tab(s), Oral, qDay losartan 100 mg tablet 100 mg 1 tab(s), Oral, Daily oxybutynin 5 mg ER tablet 10 mg 2 tab(s), Oral, qDay pantoprazole 40 mg EC tablet 40 mg 1 tab(s), Oral, qDayAC venlafaxine 75 mg Tablet 75 mg 1 tab(s), Oral, qDay Continuous: (1) NS (0.9% nacl) 1,000 mL 1,000 mL, Intravenous, 100 mL/hr PRN: (6) acetaminophen 325 mg Tablet 650 mg 2 tab(s), Oral, q4h dextrose 50% Solution Disp syringe 50 mL 12.5 gram(s) 25 mL, IV Push, AsDirected docusate sodium 100 mg Capsule 100 mg 1 cap(s), Oral, BID hydralazine 20 mg/mL (1mL) vial 10 mg 0.5 mL, IV Push, q2h magnesium hydroxide 8% Suspension 30 mL UD 30 mL, Oral, qHS ondansetron 2 mg/ 1 mL 2 mL INJ 4 mg 2 mL, IV Push, q4h Lab Results 01/28 05:08 WBC: 9.4 Hgb: 14.6 Hct: 41.4 Platelet: 236 Neutrophil %: 80.5 H Glucose Level: 183 H Sodium Level: 141 Potassium Level: 4.0 BUN: 17.0 Creatinine Lvl (s): 0.74 01/27 05:51 WBC: 9.2 Hgb: 14.1 Hct: 40.0 Platelet: 226 Neutrophil %: 82.1 H Glucose Level: 231 H Sodium Level: 140 Potassium Level: 4.0 BUN: 18.0 Creatinine Lvl (s): 0.74 EKG No qualifying data available. 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 Discussed with patient. Plan is debulking tomorrow, gross total resection is not possible due to involvement and tumor infiltration of the corticospinal tract in addition to primary motor and sensory cortices. Surgery will occur with motor mapping and deep cortical stimulation to help preserve these functions. CTA has been reviewed to evaluate vascular supply associated with the tumor We had an in-depth discussion with family at bedside 2 days ago. The family is gathered at bedside again today and report they have no further questions. Informed consent has been obtained and is on the chart Pharmacologic DVT prophylaxis has been stopped, she will be n.p.o. past midnight and on IV fluids. Digitally Signed by ROSEMARIE TINEO MD on 01/29/2024 12:42 PM [id number] Note Date of Service 01/29/2024 Chief Complaint Ataxia Subjective 73-year-old female with a past medical history of prediabetes, hypothyroidism, anxiety, hypertension. [facility] management of a recently diagnosed brain mass. In November of this year she had a CT of the head and was found to have a 3.6 x 2.8 cmenhancing mass in the posterior aspect of the right parietal occipital lobes with surrounding mass effect. This was pursued as she was having frequent falls throughout the month of November. She did have an MRI and PET scan ordered by her PCP along with CT abdomen/pelvis and CT thorax. Report indicates concentration in the right parietal lobe from PET scan concerning for neoplasm, no other significant hypermetabolic abnormalities were noted. She presented to [facility] on 01/25/2024 after sustaining another fall. Was unable to bear weight on her legs prompting presentation to the ER. Repeat CT head was done which redemonstrated brain mass. 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 Hospitalist team consulted for medical management and surgical optimization. No new complaints today. Tolerating oral intake. No nausea or vomiting. Objective Vitals and Measurements T: 36.6 C (Oral) TMIN: 36.4 C (Oral) TMAX: 36.7 C (Oral) HR: 56 RR: 18 BP: 156/61 SpO2: 96% Intake and Output 7AM Yesterday to 7AM Today Intake and Output (Last 24 hours) Intake Oral Intake 600.00 Output Urine Voided 400.00 Stool Count 0.00 Urine Count 6.00 Emesis Count 0.00 Total Summary Total Intake 600.00 Total Output 400.00 Fluid Balance 200.00 Physical Exam Physical Exam General: Alert, appropriate and awake, oriented to time, people and place Skin: No rash. Warm, Dry, Intact HEENT: Head is normocephalic and atraumatic. No lesions. Pupils equal in size. Extraocular movements within normal limits. Nose: No septal deviation. Mouth: Oropharynx mucosa is without lesion. Neck: Supple. No lymphadenopathy, thyromegaly noted. Lungs: Bilaterally clear/diminished breath sounds with no crepitation or wheeze. Unlabored Cardiovascular: Heart is regular rhythm, S1S2, No extra-audible heart tones Abdomen: Abdomen is soft, nontender. Bowel sounds positive all four quadrants. Extremities: No clubbing, cyanosis or edema. Peripheral pulses palpable. No calf tenderness. Adequate peripheral circulation. Neurological: Following simple commands, Left upper and lower extremity ataxia Weight Dosing Weight: 81.2 kg (01/25/24) Medications Medications (17) Active Scheduled: (10) ceFAZolin syringe 2 gram(s) 20 mL, IV Push (INT), PREOP pharm dexamethasone 4 mg/1 mL solution 4 mg 1 mL, IV Push, TID insulin glargine 30 unit(s) 0.3 mL, Subcutaneous (INT), qAM insulin lispro 100 units/mL Soln (3 mL) Give 0-10 units/dose, Subcutaneous, TIDAC insulin lispro 100 units/mL Soln (3 mL) 10 unit(s) 0.1 mL, Subcutaneous, TIDAC levothyroxine 112 mcg tablet 112 mcg 1 tab(s), Oral, qDay losartan 100 mg tablet 100 mg 1 tab(s), Oral, Daily oxybutynin 5 mg ER tablet 10 mg 2 tab(s), Oral, qDay pantoprazole 40 mg EC tablet 40 mg 1 tab(s), Oral, qDayAC venlafaxine 75 mg Tablet 75 mg 1 tab(s), Oral, qDay Continuous: (1) NS (0.9% nacl) 1,000 mL 1,000 mL, Intravenous, 100 mL/hr PRN: (6) acetaminophen 325 mg Tablet 650 mg 2 tab(s), Oral, q4h dextrose 50% Solution Disp syringe 50 mL 12.5 gram(s) 25 mL, IV Push, AsDirected docusate sodium 100 mg Capsule 100 mg 1 cap(s), Oral, BID hydralazine 20 mg/mL (1mL) vial 10 mg 0.5 mL, IV Push, q2h magnesium hydroxide 8% Suspension 30 mL UD 30 mL, Oral, qHS ondansetron 2 mg/ 1 mL 2 mL INJ 4 mg 2 mL, IV Push, q4h Lab Results 01/28 05:08 WBC: 9.4 Hgb: 14.6 Hct: 41.4 Platelet: 236 Neutrophil %: 80.5 H Glucose Level: 183 H Sodium Level: 141 Potassium Level: 4.0 BUN: 17.0 Creatinine Lvl (s): 0.74 01/27 05:51 WBC: 9.2 Hgb: 14.1 Hct: 40.0 Platelet: 226 Neutrophil %: 82.1 H Glucose Level: 231 H Sodium Level: 140 Potassium Level: 4.0 BUN: 18.0 Creatinine Lvl (s): 0.74 EKG No qualifying data available. Assessment/Plan Brain lesion Prediabetes with hyperglycemia Hypothyroidism Hypertension Anxiety Brain lesion, MRI of the brain obtained. 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 Management per primary team. Remains medically optimized for surgery Glucose improved, continue Lantus 30 units every morning, Humalog 10 units 3 times daily with meals. Sliding scale insulin. Hypothyroidism, continue levothyroxine Continue losartan for management of hypertension, blood pressure stable Continue venlafaxine for anxiety Discussed with Dr. Oviedo. Hospitalist team will follow for diabetic management. Time Spent Total time spent reviewing labs, diagnostics, evaluating the patient, and medical decision makin minutes Digitally Signed by CARROL GORDON on 01/29/2024 11:00 AM [id number] Note ORIGINAL EXAMINATION: CTA OF THE HEAD WITH CONTRAST 01/28/2024 4:52 pm: TECHNIQUE: CTA of the head/brain was performed with the administration of intravenous contrast. Multiplanar reformatted images are provided for review. MIP images are provided for review. Automated exposure control, iterative reconstruction, and/or weight based adjustment of the mA/kV was utilized to reduce the radiation dose to as low as reasonably achievable. COMPARISON: MRI brain with and without contrast 01/26/2024. Of HISTORY: ORDERING SYSTEM PROVIDED HISTORY: Reason for Exam: eval brain tumor, pre-op. pt complaints of left sided weakness brain tumor blood supply FINDINGS: ANTERIOR CIRCULATION: No significant stenosis of the intracranial internal carotid, anterior cerebral, or middle cerebral arteries. No aneurysm. POSTERIOR CIRCULATION: No significant stenosis of the vertebral, basilar, or posterior cerebral arteries. No aneurysm. OTHER: No dural venous sinus thrombosis on this non-dedicated study. BRAIN: There is redemonstration of a rim enhancing right parietal mass lesion better visualized and described on recent prior MRI which appears supplied via small distal cortical vessels primarily arising from the distal right anterior cerebral artery and possibly distal cortical branches arising from the right posterior cerebral artery. IMPRESSION: 1. Right parietal rim enhancing mass lesion appears supplied via distal cortical branches arising proximally from the right anterior cerebral artery and likely also the right posterior cerebral artery. 2. No evidence of large vessel occlusion or significant intracranial atherosclerotic disease resulting in flow limiting stenosis. Interpreted by: Mauro Power Preliminary Report By: Mauro Power Electronically signed By Mauro Power Dictated Date: 01/28/2024 5:07:14 PM Prelim Date: 01/28/2024 5:17:38 PM Sign Date: 01/28/2024 5:17:38 PM Ordering Provider: [id number] Neurological surgery Progress note Date of Service 01/28/2024 This is a split/shared visit with Dr. Tineo Neurosurgical CC: Right parietal/occipital brain mass This is a 73-year-old female who presented to [facility] ED on 01/25/2024 with complaints of multiple falls, difficulty standing up. Patient was apparently trying to get up and use the restroom, and felt as though she cannot bear weight on her legs. This caused her to slide down the side of the bed striking her head on the wooden bed frame. During her workup at [facility], patient hada noncontrasted head CT which demonstrated a brain mass in the right parietal/occipital region. Dueto these findings, patient was [facility] by [facility]surgery. Patient had recently been seen by her primary care physician due to recurrent falls and left-sided weakness. Per review of documentation, patient had apparently been falling almost daily. MRI of the brain was ordered, but prior to completion patient was evaluated after a fall in [place] ED. At thattime she had a noncontrasted head CT which demonstrated 3.6 x 2.8 cm enhancing mass in the posterior aspect of the right parietal/occipital lobes with surrounding mass effect. Due to these findings, patient was referred on an outpatient basis to neurosurgery office, and brain MRI, PET scan, and CT chest abdomen, and pelvis with were ordered. Patient did have an MRI of the brain on 01/02/2024, and a PET scan on 01/03/2024. According to H&P, PET scan report indicated FDG concentration in the right parietal lobe, concerning for neoplasm. No other quantitative hypermetabolic abnormalities noted. Prior to scheduled follow-up, patient continue to follow at home, became progressively weaker, andwas taken to [place] ED for further evaluation. In ED, patient was given 10 mg of dexamethasone, and then scheduled on 4 mg every 6 hours. Patient has had no documented/witnessed seizure activity, and has not required Keppra. She does remain on dexamethasone. MRI of the brain completed at [place] demonstrates the right parietal/occipital lesion with irregular central enhancement and necrosis. Findings concerning for malignancy. This was reviewed by Dr. 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 In addition, noted heavy involvement of the cortex and gyri are widely expanded. The deep white matter reveals heterogeneous portions of the mass. Dr. Tineo did meet with the patient and family at the bedside, reviewed imaging, and recommendation to proceed with surgical debulking. Patient and family both agreeable. Surgery tentatively planned for 01/30/2024. Patient has been evaluated by PT/OT who are recommending inpatient PT/OT acute rehab at time of discharge from the hospital. This morning, patient is seen sitting up in bedside chair. She does not appear to be in any acute distress. She is alert, and oriented appropriately. Her speech is clear and fluent. Facial features are symmetrical, tongue protrudes midline. PERRLA, EOMI. She is moving all 4 extremities spontaneously. Strong motor strength and intact sensation in RUE and RLE. Slightly weaker hand grasp in left hand, however otherwise strength is intact. Continues with dysmetria with [id number] testing on theleft. Incoordination of LUE and LLE. No pronator drift this morning. She denies any headache, acute neuro changes this morning. Notes that she was able to ambulate a short distance with PT/OT yesterday. She has been tolerating p.o. intake without nausea or vomiting. She has been voiding without difficulty. Objective Vitals and Measurements T: 36.5 C (Oral) TMIN: 36.5 C (Oral) TMAX: 36.8 C (Oral) HR: 63 RR: 18 BP: 144/72 SpO2: 95% Intake and Output 7AM Yesterday to 7AM Today Intake and Output (Last 24 hours) Intake Oral Intake 1400.00 Output Urine Voided 400.00 Stool Count 3.00 Urine Count 5.00 Emesis Count 0.00 Total Summary Total Intake 1400.00 Total Output 400.00 Fluid Balance 1000.00 Physical Exam See HPI. In addition, respirations are easy and unlabored, lungs are clear throughout. She is saturating well on room air. Regular heart rate and rhythm, S1-S2. Abdomen is soft, nondistended. Nontender to palpation. BSP x 4. Voiding without difficulty. Weight Dosing Weight: 81.2 kg (01/25/24) Medications Medications (16) Active Scheduled: (10) dexamethasone 4 mg/1 mL solution 4 mg 1 mL, IV Push, TID heparin 5,000 units/mL (1 mL) vial 5,000 unit(s) 1 mL, Subcutaneous, q8hr insulin glargine 30 unit(s) 0.3 mL, Subcutaneous (INT), qAM insulin lispro 100 units/mL Soln (3 mL) Give 0-10 units/dose, Subcutaneous, TIDAC insulin lispro 100 units/mL Soln (3 mL) 10 unit(s) 0.1 mL, Subcutaneous, TIDAC levothyroxine 112 mcg tablet 112 mcg 1 tab(s), Oral, qDay losartan 100 mg tablet 100 mg 1 tab(s), Oral, Daily oxybutynin 5 mg ER tablet 10 mg 2 tab(s), Oral, qDay pantoprazole 40 mg EC tablet 40 mg 1 tab(s), Oral, qDayAC venlafaxine 75 mg Tablet 75 mg 1 tab(s), Oral, qDay Continuous: (0) PRN: (6) acetaminophen 325 mg Tablet 650 mg 2 tab(s), Oral, q4h dextrose 50% Solution Disp syringe 50 mL 12.5 gram(s) 25 mL, IV Push, AsDirected docusate sodium 100 mg Capsule 100 mg 1 cap(s), Oral, BID hydralazine 20 mg/mL (1mL) vial 10 mg 0.5 mL, IV Push, q2h magnesium hydroxide 8% Suspension 30 mL UD 30 mL, Oral, qHS ondansetron 2 mg/ 1 mL 2 mL INJ 4 mg 2 mL, IV Push, q4h Lab Results 01/27 05:51 WBC: 9.2 Hgb: 14.1 Hct: 40.0 Platelet: 226 Neutrophil %: 82.1 H Glucose Level: 231 H Sodium Level: 140 Potassium Level: 4.0 BUN: 18.0 Creatinine Lvl (s): 0.74 01/26 08:36 WBC: 11.7 H Hgb: 14.0 Hct: 39.7 Platelet: 240 Neutrophil %: 85.1 H Glucose Level: 231 H Sodium Level: 140 Potassium Level: 4.1 BUN: 19.0 Creatinine Lvl (s): 0.91 Assessment/Plan Right parietal/occipital brain mass MRI of the brain demonstrates right parietal/occipital lobe heterogeneously enhancing brain mass and deep subcortical white matter with diffusely infiltrated overlying primary sensory and motor for text and suspected corticospinal tracts. Patient initially received dexamethasone 10 mg x 1 dose. She is now scheduled on 4 mg every 6 hours. Patient has had no known seizure activity thus far, and therefore will not be started on Keppra. Dr. Tineo has reviewed MRI imaging with patient and family, as well as recommendation for tumor debulking. Surgery is tentatively planned for 01/30/2024. Consent has been signed. Patient scheduled for MRI of the brain for surgical planning prior to surgery on Tuesday. She will have fiducials placed prior to MRI by neurosurgery APRNs. Continue to monitor patient's neuro exam. Notify neurosurgery with any abrupt changes or patient concerns. Continue to encourage mobilization. Will request PT/OT work with patient again today, and challenged patient to ambulate slightly further in comparison to yesterday. Patient is in agreement with this. Discussed importance of adequate diet with good nutrition in regards to healing. Hospitalist team following along. Notes reviewed. Patient remains medically optimized for surgery. Subcutaneous heparin for DVT prophylaxis. Last dose preoperatively will be at 10 PM on Tuesday evening. Discussed plan of care with patient at the bedside this morning. All questions answered. Please see Dr. Tineo's addendum for further details regarding neurosurgical assessment/plan of care. Digitally Signed by NAHUM SANTOS on 01/28/2024 12:04 PM [id number] Neurological surgery Progress note Date of Service 01/28/2024 This is a split/shared visit with Dr. Tineo Neurosurgical CC: Right parietal/occipital brain mass This is a 73-year-old female who presented to [facility] ED on 01/25/2024 with complaints of multiple falls, difficulty standing up. Patient was apparently trying to get up and use the restroom, and felt as though she cannot bear weight on her legs. This caused her to slide down the side of the bed striking her head on the wooden bed frame. During her workup at [facility], patient hada noncontrasted head CT which demonstrated a brain mass in the right parietal/occipital region. Dueto these findings, patient was transferred to [facility] for evaluation by neurosurgery. Patient had recently been seen by her primary care physician due to recurrent falls and left-sided weakness. Per review of documentation, patient had apparently been falling almost daily. MRI of the brain was ordered, but prior to completion patient was evaluated after a fall in [place] ED. At thattime she had a noncontrasted head CT which demonstrated 3.6 x 2.8 cm enhancing mass in the posterior aspect of the right parietal/occipital lobes with surrounding mass effect. Due to these findings, patient was referred on an outpatient basis to neurosurgery office, and brain MRI, PET scan, and CT chest abdomen, and pelvis with were ordered. Patient did have an MRI of the brain on 01/02/2024, and a PET scan on 01/03/2024. According to H&P, PET scan report indicated FDG concentration in the right parietal lobe, concerning for neoplasm. No other quantitative hypermetabolic abnormalities noted. Prior to scheduled follow-up, patient continue to follow at home, became progressively weaker, andwas taken to [place] ED for further evaluation. In ED, patient was given 10 mg of dexamethasone, and then scheduled on 4 mg every 6 hours. Patient has had no documented/witnessed seizure activity, and has not required Keppra. She does remain on dexamethasone. MRI of the brain completed at [place] demonstrates the right parietal/occipital lesion with irregular central enhancement and necrosis. Findings concerning for malignancy. This was reviewed by Dr. 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 In addition, noted heavy involvement of the cortex and gyri are widely expanded. The deep white matter reveals heterogeneous portions of the mass. Dr. Tineo did meet with the patient and family at the bedside, reviewed imaging, and recommendation to proceed with surgical debulking. Patient and family both agreeable. Surgery tentatively planned for 01/30/2024. Patient has been evaluated by PT/OT who are recommending inpatient PT/OT acute rehab at time of discharge from the hospital. This morning, patient is seen sitting up in bedside chair. She does not appear to be in any acute distress. She is alert, and oriented appropriately. Her speech is clear and fluent. Facial features are symmetrical, tongue protrudes midline. PERRLA, EOMI. She is moving all 4 extremities spontaneously. Strong motor strength and intact sensation in RUE and RLE. Slightly weaker hand grasp in left hand, however otherwise strength is intact. Continues with dysmetria with [id number] testing on theleft. Incoordination of LUE and LLE. No pronator drift this morning. She denies any headache, acute neuro changes this morning. Notes that she was able to ambulate a short distance with PT/OT yesterday. She has been tolerating p.o. intake without nausea or vomiting. She has been voiding without difficulty. Objective Vitals and Measurements T: 36.5 C (Oral) TMIN: 36.5 C (Oral) TMAX: 36.8 C (Oral) HR: 63 RR: 18 BP: 144/72 SpO2: 95% Intake and Output 7AM Yesterday to 7AM Today Intake and Output (Last 24 hours) Intake Oral Intake 1400.00 Output Urine Voided 400.00 Stool Count 3.00 Urine Count 5.00 Emesis Count 0.00 Total Summary Total Intake 1400.00 Total Output 400.00 Fluid Balance 1000.00 Physical Exam See HPI. In addition, respirations are easy and unlabored, lungs are clear throughout. She is saturating well on room air. Regular heart rate and rhythm, S1-S2. Abdomen is soft, nondistended. Nontender to palpation. BSP x 4. Voiding without difficulty. Weight Dosing Weight: 81.2 kg (01/25/24) Medications Medications (16) Active Scheduled: (10) dexamethasone 4 mg/1 mL solution 4 mg 1 mL, IV Push, TID heparin 5,000 units/mL (1 mL) vial 5,000 unit(s) 1 mL, Subcutaneous, q8hr insulin glargine 30 unit(s) 0.3 mL, Subcutaneous (INT), qAM insulin lispro 100 units/mL Soln (3 mL) Give 0-10 units/dose, Subcutaneous, TIDAC insulin lispro 100 units/mL Soln (3 mL) 10 unit(s) 0.1 mL, Subcutaneous, TIDAC levothyroxine 112 mcg tablet 112 mcg 1 tab(s), Oral, qDay losartan 100 mg tablet 100 mg 1 tab(s), Oral, Daily oxybutynin 5 mg ER tablet 10 mg 2 tab(s), Oral, qDay pantoprazole 40 mg EC tablet 40 mg 1 tab(s), Oral, qDayAC venlafaxine 75 mg Tablet 75 mg 1 tab(s), Oral, qDay Continuous: (0) PRN: (6) acetaminophen 325 mg Tablet 650 mg 2 tab(s), Oral, q4h dextrose 50% Solution Disp syringe 50 mL 12.5 gram(s) 25 mL, IV Push, AsDirected docusate sodium 100 mg Capsule 100 mg 1 cap(s), Oral, BID hydralazine 20 mg/mL (1mL) vial 10 mg 0.5 mL, IV Push, q2h magnesium hydroxide 8% Suspension 30 mL UD 30 mL, Oral, qHS ondansetron 2 mg/ 1 mL 2 mL INJ 4 mg 2 mL, IV Push, q4h Lab Results 01/27 05:51 WBC: 9.2 Hgb: 14.1 Hct: 40.0 Platelet: 226 Neutrophil %: 82.1 H Glucose Level: 231 H Sodium Level: 140 Potassium Level: 4.0 BUN: 18.0 Creatinine Lvl (s): 0.74 01/26 08:36 WBC: 11.7 H Hgb: 14.0 Hct: 39.7 Platelet: 240 Neutrophil %: 85.1 H Glucose Level: 231 H Sodium Level: 140 Potassium Level: 4.1 BUN: 19.0 Creatinine Lvl (s): 0.91 Assessment/Plan Right parietal/occipital brain mass MRI of the brain demonstrates right parietal/occipital lobe heterogeneously enhancing brain mass and deep subcortical white matter with diffusely infiltrated overlying primary sensory and motor for text and suspected corticospinal tracts. Patient initially received dexamethasone 10 mg x 1 dose. She is now scheduled on 4 mg every 6 hours. Patient has had no known seizure activity thus far, and therefore will not be started on Keppra. Dr. Tineo has reviewed MRI imaging with patient and family, as well as recommendation for tumor debulking. Surgery is tentatively planned for 01/30/2024. Consent has been signed. Patient scheduled for MRI of the brain for surgical planning prior to surgery on Tuesday. She will have fiducials placed prior to MRI by neurosurgery APRNs. Continue to monitor patient's neuro exam. Notify neurosurgery with any abrupt changes or patient concerns. Continue to encourage mobilization. Will request PT/OT work with patient again today, and challenged patient to ambulate slightly further in comparison to yesterday. Patient is in agreement with this. Discussed importance of adequate diet with good nutrition in regards to healing. Hospitalist team following along. Notes reviewed. Patient remains medically optimized for surgery. Subcutaneous heparin for DVT prophylaxis. Last dose preoperatively will be at 10 PM on Tuesday evening. Discussed plan of care with patient at the bedside this morning. All questions answered. Please see Dr. Tineo's addendum for further details regarding neurosurgical assessment/plan of care. Digitally Signed by NAHUM SANTOS on 01/28/2024 12:04 PM [id number] Note Date of Service 01/28/2024 Chief Complaint Ataxia Subjective 73-year-old female with a past medical history of prediabetes, hypothyroidism, anxiety, hypertension. She was a transfer [facility] for management of a recently diagnosed brain mass. In November of this year she had a CT of the head and was found to have a 3.6 x 2.8 cmenhancing mass in the posterior aspect of the right parietal occipital lobes with surrounding mass effect. This was pursued as she was having frequent falls throughout the month of November. She did have an MRI and PET scan ordered by her PCP along with CT abdomen/pelvis and CT thorax. Report indicates concentration in the right parietal lobe from PET scan concerning for neoplasm, no other significant hypermetabolic abnormalities were noted. She presented to [facility] on 01/25/2024 after sustaining another fall. Was unable to bear weight on her legs prompting presentation to the ER. Repeat CT head was done which redemonstrated brain mass. [facility] 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 Hospitalist team consulted for medical management and surgical optimization. On exam, patient has no new complaints. No chest pain shortness of breath. No nausea, vomiting, diarrhea. Objective Vitals and Measurements T: 36.5 C (Oral) TMIN: 36.5 C (Oral) TMAX: 36.8 C (Oral) HR: 63 RR: 18 BP: 160/77 SpO2: 95% Intake and Output 7AM Yesterday to 7AM Today Intake and Output (Last 24 hours) Intake Oral Intake 1100.00 Output Urine Voided 400.00 Stool Count 3.00 Urine Count 4.00 Emesis Count 0.00 Total Summary Total Intake 1100.00 Total Output 400.00 Fluid Balance 700.00 Physical Exam Physical Exam General: Alert, appropriate and awake, oriented to time, people and place Skin: No rash. Warm, Dry, Intact HEENT: Head is normocephalic and atraumatic. No lesions. Pupils equal in size. Extraocular movements within normal limits. Nose: No septal deviation. Mouth: Oropharynx mucosa is without lesion. Neck: Supple. No lymphadenopathy, thyromegaly noted. Lungs: Bilaterally clear/diminished breath sounds with no crepitation or wheeze. Unlabored Cardiovascular: Heart is regular rhythm, S1S2, No extra-audible heart tones Abdomen: Abdomen is soft, nontender. Bowel sounds positive all four quadrants. Extremities: No clubbing, cyanosis or edema. Peripheral pulses palpable. No calf tenderness. Adequate peripheral circulation. Neurological: Following simple commands, Left upper and lower extremity ataxia Weight Dosing Weight: 81.2 kg (01/25/24) Medications Medications (16) Active Scheduled: (10) dexamethasone 4 mg/1 mL solution 4 mg 1 mL, IV Push, TID heparin 5,000 units/mL (1 mL) vial 5,000 unit(s) 1 mL, Subcutaneous, q8hr insulin glargine 30 unit(s) 0.3 mL, Subcutaneous (INT), qAM insulin lispro 100 units/mL Soln (3 mL) Give 0-10 units/dose, Subcutaneous, TIDAC insulin lispro 100 units/mL Soln (3 mL) 10 unit(s) 0.1 mL, Subcutaneous, TIDAC levothyroxine 112 mcg tablet 112 mcg 1 tab(s), Oral, qDay losartan 100 mg tablet 100 mg 1 tab(s), Oral, Daily oxybutynin 5 mg ER tablet 10 mg 2 tab(s), Oral, qDay pantoprazole 40 mg EC tablet 40 mg 1 tab(s), Oral, qDayAC venlafaxine 75 mg Tablet 75 mg 1 tab(s), Oral, qDay Continuous: (0) PRN: (6) acetaminophen 325 mg Tablet 650 mg 2 tab(s), Oral, q4h dextrose 50% Solution Disp syringe 50 mL 12.5 gram(s) 25 mL, IV Push, AsDirected docusate sodium 100 mg Capsule 100 mg 1 cap(s), Oral, BID hydralazine 20 mg/mL (1mL) vial 10 mg 0.5 mL, IV Push, q2h magnesium hydroxide 8% Suspension 30 mL UD 30 mL, Oral, qHS ondansetron 2 mg/ 1 mL 2 mL INJ 4 mg 2 mL, IV Push, q4h Lab Results 01/27 05:51 WBC: 9.2 Hgb: 14.1 Hct: 40.0 Platelet: 226 Neutrophil %: 82.1 H Glucose Level: 231 H Sodium Level: 140 Potassium Level: 4.0 BUN: 18.0 Creatinine Lvl (s): 0.74 01/26 08:36 WBC: 11.7 H Hgb: 14.0 Hct: 39.7 Platelet: 240 Neutrophil %: 85.1 H Glucose Level: 231 H Sodium Level: 140 Potassium Level: 4.1 BUN: 19.0 Creatinine Lvl (s): 0.91 EKG No qualifying data available. Assessment/Plan Brain lesion Prediabetes with hyperglycemia Hypothyroidism Hypertension Anxiety Brain lesion, MRI of the brain obtained. 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 Management per primary team. Remains medically optimized for surgery Continues to be hyperglycemic, increase Lantus to 30 units every morning, increase prandial insulinto 10 of Humalog units 3 times daily. Hemoglobin A1c 6.9%. Continue sliding scale insulin Hypothyroidism, continue levothyroxine Continue losartan for management of hypertension, blood pressure stable Continue venlafaxine for anxiety Discussed with patient and family at the bedside, discussed with Dr. Oviedo. Hospitalist team will follow on consult Time Spent Total time spent reviewing labs, diagnostics, evaluating the patient, and medical decision makin minutes Digitally Signed by CARROL GORDON on 01/28/2024 11:23 AM [id number] Note ORIGINAL HISTORY: Surgical planning COMPARISON: Earlier same day TECHNIQUE: 1. Axial T2-weighted images. 2. Axial, sagittal and coronal T1-weighted images following uncomplicated administration of intravenous gadolinium contrast. FINDINGS: MR of the brain is obtained for surgical planning. There are no fiducial markers. There is a right parietal/occipital mass containing areas of enhancement and necrosis. IMPRESSION: MR of the brain obtained for surgical planning Interpreted by: Jose Bowman MD Preliminary Report By: Jose Bowman MD Electronically signed By Jose Bowman MD Dictated Date: 01/27/2024 8:48:08 AM Prelim Date: 01/27/2024 8:49:03 AM Sign Date: 01/27/2024 8:49:03 AM Ordering Provider: [facility]Reg[facility] [id number] Note ORIGINAL HISTORY: Brain mass COMPARISON: No TECHNIQUE: 1. Sagittal and axial T1-weighted images. 2. Axial FLAIR images. 3. Axial T2-weighted and T2*-weighted images. 4. Axial diffusion-weighted images with ADC map. 5. Axial, sagittal and coronal T1-weighted images following uncomplicated administration of intravenous gadolinium contrast. FINDINGS: There is an irregular rim enhancing lesion centered in the right parietal lobe with a maximum diameter of approximately 4 cm. There is T2 hyperintensity surrounding the area of enhancement, extending anterior to the enhance sing component and into the occipital lobe. Signal change extends into the posterior hippocampus and the splenium; there is minimal amount of T2 hyperintensity extending into the left splenium. The T2 hyperintense area measures approximately 6.2 cm in maximum diameter. There is mass effect, with effacement of the posterior right lateral ventricle and adjacent occipital sulci. There is no associated restriction of diffusion. Otherwise, the ventricles and sulci are normal to mildly enlarged. There are mild scattered punctate and nodular T2 hyperintensities in the cerebral white matter. 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 Interpreted by: Jose Bowman MD Preliminary Report By: Jose Bowman MD Electronically signed By Jose Bowman MD Dictated Date: 01/27/2024 8:43:28 AM Prelim Date: 01/27/2024 8:47:58 AM Sign Date: 01/27/2024 8:47:58 AM Ordering Provider: MADIHA [facility]11-27-2024 History and physical note Date of Service 01/25/2024 Split/shared H&P with Dr. Tineo Chief Complaint Left hemiparesis, recurrent falls; findings of brain mass History of Present Illness This is a 73-year-old female with past medical history significant for hypertension, major depressive disorder, overactive bladder, drug-induced myopathy, hyperlipidemia, hypothyroidism, type 2 diabetes mellitus on Ozempic, hearing loss, GERD, right rotator cuff tendinitis, osteoarthritis of left knee, vitamin D deficiency and recently diagnosed brain mass who had seen PCP December 27, 2023 for evaluation after recurrent falls and concerns of left-sided weakness. At that time, had been provided by that patient was falling almost daily throughout the month of November. Apparently, patient had been told by PT she had left-sided weakness (per MD note). PCP ordered lab work, and brain MRIfor evaluation of left hemiparesis. Due to concern of closed head injury secondary to her falls, a noncontrast head CT was also ordered. Head CT completed in [place], report reviewed, and indicates patient, for 3.6 x 2.8 cm enhancing mass in the posterior aspect of right parietal occipital lobes with surrounding mass effect. Also with evidence of heterogeneous area of enhancement in superior right posterior parietal lobe, adjacent send cerebral vertex. She returned to PCP office 12/29/2023 to review imaging. Note reviewed, patient noted to have left hemiparesis, gait difficulty and indicated dragging the left foot. She was ordered to continue with PT, and referred to neurosurgery office. PCP ordered brain MRI, PET scan CT chest, abdomen and pelvis. Body CTs completed 12/29/23. Brain MRI completed 01/02/2024 and PET scan appears to have been compl eted on 01/03/2024- PET report indicates increased FDG concentration noted in right parietal lobe, concerning for neoplasm otherwise no other quantitatively significant hypermetabolic abnormalities noted. Patient presented to [facility] earlier this morning after sliding out of bed when she was trying to get up to go to the restroom. Was unable to bear weight on her legs, and ended up sliding down the side of the bed, striking her head on wooden bed frame. She denies LOC. was unable tohelp her up, and she could not get up due to left sided weakness. Noncontrast head CT was performedat [facility], imaging available for review. Brain mass redemonstrated, no intracranial hemorrhages visualized. ED physician discussed case with on-call neurosurgeon, Dr. Tineo. Patient received 10 mg dexamethasone x 1, and is scheduled 4mg every 6 hours. She was transferred to [facility] for further neurosurgical review and management of her care. Patient is seen lying in bed. She is in no acute distress. She is fully awake and alert. Follows commands to the best of her ability, and moves all 4 extremities. She does have left-sided hemiparesisand incoordination of the left upper and lower extremity. + mild left-sided pronator drift. Right upper and lower extremity strength is strong. Light touch sensation is intact symmetrically in bilateral upper and lower extremities as well as her face. Tongue protrudes midline. Right/left differentiation is intact. Reports she has continued to fall frequently, approximately 1 2 times per day due to ongoing left-sided hemiparesis, imbalance and gait difficulties. Indicates initially she had been using a cane, however over the past month has had to switch to using a walker. States she has to concentrate with movements of her left foot, as she states it tends to drag when she is walking. She is right- handed. Reports she is often knocking over items in the house with her left hand, due to uncoordinated movements. Reports has been experiencing intermittent headaches over the past couple months. States she does feel as if her symptoms have worsened over the past month. Review of Systems GENERAL: Denies any recent fever, chills, or night sweats. Denies any recent unintentional weight loss. SKIN: Denies skin complaints. HEENT: See HPI. Denies dizziness. Denies acute changes in visual acuity. Denies diplopia or blurredvision. Wears eyeglasses. Denies earaches, changes in hearing, or otorrhea. Denies rhinorrhea or sore throat. MS: Denies acute spinal pain. Denies acute joint pain, redness or swelling. Reports history of right rotator cuff and prior right knee surgery. RESPIRATORY: Denies shortness of breath, difficulty breathing or cough. CARDIOVASCULAR: Denies chest pain, pressure, palpitations. GI: Denies acute abdominal pain, nausea, vomiting. Denies acute changes in bowel movements/habits. : Denies dysuria or hematuria. NEUROLOGICAL: See HPI. Denies acute paresthesias. Physical Exam Vitals and Measurements No qualifying data available. General survey: 73-year-old female, appears congruent with her chronological age. Well-developed and well-nourished. Pleasant demeanor. Calm. Cooperative with exam. Accompanied by who is present at bedside. Skin: Skin is warm and dry. No rashes. HEENT: Superficial abrasion at left parieto-occipital scalp. Extraocular movements are intact; no nystagmus or gaze deviation. Pupils are equal and round, and briskly reactive to light. 3 mm in size bilaterally. No otorrhea or rhinorrhea. Oral mucosa is pink and moist. MS: Limited ROM at right shoulder due to prior rotator cuff Cardiovascular: Regular heart rate and rhythm. S1 and S2 present. No peripheral edema. Respiratory: Respirations even and unlabored. Lungs are clear bilaterally. Abdomen: Abdomen is soft, and obese. Nontender and nondistended with bowel sounds present in all 4 quadrants. Peripheral vascular: Extremities are warm. Radial and pedal pulses are 2+ and symmetric. Neurological: See HPI. Lab Results No 36 Hour Lab Data Imaging Results and Diagnostics See HPI Imaging from [place] available on [employer], including recent Brain MRI, Brain CTs, Abd/pelvisCT, Thorax CT and PET scan Assessment/Plan Brain mass Recently diagnosed with brain mass the end of November 2023. Initial brain CT showed 3.6 x 2.8 cm enhancing mass in the posterior aspect of right parietal occipital lobes with surrounding mass effect.Also with evidence of heterogeneous area of enhancement in superior right posterior parietal lobe, adjacent send cerebral vertex. Reports ongoing left-sided hemiparesis, and balance and gait difficulties. Has had recurrent daily falls since the beginning of November. Indicates initially had been using a cane, however the past month switched to using a walker, and more recently now falling approximately 1 2 times per day. Also reports uncoordinated movements of her left hand and foot, and intermittent headaches over the past couple months. Presented to [facility] the morning of 01/25/2024 after sliding out of bed when she was trying to get up to go to the restroom but unable to bear weight on her legs and this caused her to slidedown the side the mattress striking her head on wooden bed frame. Denied LOC. Unable to get up on her own, and was also unable to. She was brought in for evaluation. Noncontrast head CT performed 01/25/24 at [facility], imaging available for review. Brain mass redemonstrated, no intracranial hemorrhages visualized. Appears to have mildly increased vasogenicedema surrounding mass and mildly increased ML shift now measuring 6 mm, previously 4mm on 12/27/23per Radiologist report. With known brain mass, increased vasogenic edema and shift, as well as frequent falls, ED physiciancontacted on-call neurosurgeon to request transfer for neurosurgical review and management of care.Dr. Tineo accepted patient for admission here. Patient loaded with 10 mg dexamethasone x 1, continued on scheduled 4 mg every 6 hours. Protonix added. At this time, will hold off on Keppra. Patient has had no seizures to her knowledge, or witnessed by family. Continue to monitor closely. Notify neurosurgery promptly with any acute concerns for seizure activity. Dr. Tineo has requested new brain MRI with and without contrast for updated imaging of brain mass. Additionally, will add Stealth MRI to orders for presurgical planning. PET scan negative for increased FDG concentration aside from right parietal lobe. Therefore, there is concern this may be a primary brain cancer. Tentatively optimizing and prepping patient for brainmass resection with biopsy. Consultation to hospitalist requesting for medical optimization and clearance for surgery. Patient may be mobilized with assistance, participate in PT/OT, and be on ADA diet Stable for Stepdown level of care. Please refer to Dr. Tineo's addendum for additional information, and details regarding neurosurgical input and plan of care Problem List/Past Medical History Ongoing Brain neoplasm tissue sample Diabetes mellitus Gait difficulty GERD - Gastro-esophageal reflux disease Hearing loss Hyperlipidemia Hypertension Hypothyroidism Neck pain Osteoarthritis STRESS INCONTINENCE, FEMALE Procedure/Surgical History Right Rotator Cuff Right knee Toe surgery Medications Refer to [facility] Allergies Bee Stings Unknown Latex Unknown codeine Unknown tetanus immune globulin Unknown Social History Alcohol Use: Never., 01/20/2024 Substance Abuse Use: Never., 01/20/2024 Tobacco Nicotine Use: Never (less than 100 in lifetime)., 01/20/2024 Family History Father CHF Immunizations No qualifying data available. Code Status Full code. Digitally Signed by MADIHA ZHANG on 01/25/2024 02:41 PM [id number] Consult note Date of Service 01/25/24 Reason for Consultation Perioperative medical management, preoperative optimization Referring Physician Dr. Tineo History of Present Illness 73-year-old female presents as a transfer from [facility] accepted to the neurosurgical service for brain mass. Hospitalist team is consulted for medical management and preoperative optimization. Briefly, patient has been having increased balance issues and weakness in the left side. Evaluated by PCP and found to have a brain mass. Admitted to neurosurgical service and has been on dexamethasone. Patient states that she has been having about a month of left-sided hemiparesis interfering with her activities of daily living. Has been progressive. At baseline, she has no chest pain or shortness of breath with activity. She has no known CAD, CHF. Does not require insulin for diabetes and reports that it typically is well-controlled. Regularly follows with PCP. No known stroke history. Regarding her medical history: Patient has hypothyroidism on levothyroxine, hypertension on losartan, diabetes on semaglutide. Course at outside hospital: CBC at [place] ED with no significant abnormalities. BP was elevated at 170 systolic. Creatinine normal 0.95. Electrolytes normal. Glucose elevated 198. Alk phos 148. ALT AST normal. Troponin normal. Albumin normal 3.8. TSH normal 1.950. Physical Exam Vitals and Measurements T: 36.5 C (Oral) TMIN: 36.5 C (Oral) TMAX: 36.9 C (Oral) HR: 71 RR: 18 BP: 146/78 SpO2: 96% HT: 167.6 cm WT: 81.2 kg BMI: 28.91 Weight Dosing Weight: 81.2 kg (01/25/24) GA: Alert and oriented x3, no acute distress Abd: Not distended HEENT: NCAT, sclera anicteric, oral mucosa moist Pulmonary: No tachypnea or use of accessory respiratory muscles. MSK: No gross deformities Cardiovascular: Not tachycardic. No lower extremity edema. Skin: Warm and dry Neuro: Spontaneous movement of all extremities, cranial nerves II through XII grossly normal. Weakness appreciated on the left side relative to the right with incoordination. Psychiatric: Thought content, associations, attention are all normal. Assessment/Plan Brain mass. [facility] Hospitalist consulted for preoperative optimization. Her chronic medical issues including diabetes, HTN, HLD appears stable at this point. Nothing in history or physicalsuggest that the patient is at elevated perioperative risk. Risk factors for adverse outcomes include age, DM, HTN - no CAD, CHF, CVA, or insulin use for DM in history. This was discussed with the patient who is agreeable to proceeding with the procedure as necessary at the discretion of neurosurgery. *Patient is optimized for surgery Management per primary. Chronic hypothyroidism. Stable. Recent TSH reviewed. Continue levothyroxine. Chronic urinary incontinence. Patient denies any acute symptoms. Continue oxybutynin. HTN. BP is mildly elevated in the 140s here. Reports it is typically well- controlled at home. Continue losartan. DM2. She is not to be hyperglycemic here. Anticipate that glucose will be elevated due to steroid use. Agree with holding home GLP-1 considering pending surgery. Insulin correctional scale. Regular glucose checks. Recommend glucose control less than 180. Time. Thank you for allowing the hospitalist team to participate in this patient's care. Please contact us with any questions. DVT prophylaxis: Per primary team Note dictated using voice recognition software and may contain typographical errors. Problem List/Past Medical History Ongoing Brain neoplasm tissue sample Diabetes mellitus Gait difficulty GERD - Gastro-esophageal reflux disease Hearing loss Hyperlipidemia Hypertension Hypothyroidism Neck pain Osteoarthritis STRESS INCONTINENCE, FEMALE Procedure/Surgical History No qualifying data available. Medications Inpatient Apresoline, 10 mg= 0.5 mL, IV Push, q2h, PRN Colace, 100 mg= 1 cap(s), Oral, BID, PRN Decadron, 4 mg= 1 mL, IV Push, q6h Dextrose 50% IV Push, 12.5 gram(s)= 25 mL, IV Push, AsDirected, PRN Ditropan XL, 10 mg= 2 tab(s), Oral, qDay levothyroxine, 112 mcg= 1 tab(s), Oral, qDay losartan, 100 mg= 1 tab(s), Oral, Daily Milk of Magnesia, 30 mL, Oral, qHS, PRN NS 1,000 mL, 1000 mL, Intravenous Protonix, 40 mg= 1 tab(s), Oral, qDayAC Tylenol, 650 mg= 2 tab(s), Oral, q4h, PRN venlafaxine, 75 mg= 1 tab(s), Oral, qDay Zofran, 4 mg= 2 mL, IV Push, q4h, PRN Home levothyroxine, 112 mcg, Oral, qDay losartan 100 mg oral tablet, 100 mg= 1 tab(s), Oral, Daily meloxicam 7.5 mg oral tablet, 7.5 mg= 1 tab(s), Oral, BID Ozempic 2 mg/3 mL (0.25 mg or 0.5 mg dose) subcutaneous solution, 0.25 mg, Subcutaneous, qWeek solifenacin 10 mg oral tablet, 10 mg= 1 tab(s), Oral, qDay venlafaxine 75 mg oral tablet, 75 mg= 1 tab(s), Oral, qDay Allergies Bee Stings Unknown Latex Unknown codeine Unknown tetanus immune globulin Unknown Social History Alcohol Use: Never., 01/20/2024 Substance Abuse Use: Never., 01/20/2024 Tobacco Nicotine Use: Never (less than 100 in lifetime)., 01/20/2024 Immunizations No qualifying data available. Digitally Signed by DAVID BARNETT MD on 01/25/2024 03:22 PM [facility] [id number] Evaluation + Plan noteExtracted from: Title:History and Physical Author:MADIHA ZHANG APRN-PUBLIC SERVICE OFFICER Date:01/25/24 Brain mass Recently diagnosed with brain mass the end of November 2023. Initial brain CT showed 3.6 x 2.8 cm enhancing mass in the posterior aspect of right parietal occipital lobes with surrounding mass effect. Also with evidence of heterogeneous area of enhancement in superior right posterior parietal lobe, adjacent send cerebral vertex. Reports ongoing left-sided hemiparesis, and balance and gait difficulties. Has had recurrent daily falls since the beginning of November. Indicates initially had been using a cane, however the past month switched to using a walker, and more recently now falling approximately 1 2 times per day. Also reports uncoordinated movements of her left hand and foot, and intermittent headaches over the past couple months. Presented to [facility] the morning of 01/25/2024 after sliding out of bed when she was trying to get up to go to the restroom but unable to bear weight on her legs and this caused her to slide down the side the mattress striking her head on wooden bed frame. Denied LOC. Unable to get up on her own, and was also unable to. She was brought in for evaluation. Noncontrast head CT performed 01/25/24 at [facility], imaging available for review. Brain mass redemonstrated, no intracranial hemorrhages visualized. Appears to have mildly increased vasogenic edema surrounding mass and mildly increased ML shift now measuring 6 mm, previously 4mm on 12/27/23 per Radiologist report. With known brain mass, increased vasogenic edema and shift, as well as frequent falls, ED physician contacted on-call neurosurgeon to request transfer for neurosurgical review and management of care. Dr. Tineo accepted patient for admission here. Patient loaded with 10 mg dexamethasone x 1, continued on scheduled 4 mg every 6 hours. Protonix added. At this time, will hold off on Keppra. Patient has had no seizures to her knowledge, or witnessed by family. Continue to monitor closely. Notify neurosurgery promptly with any acute concerns for seizure activity. Dr. Tineo has requested new brain MRI with and without contrast for updated imaging of brain mass. Additionally, will add Stealth MRI to orders for presurgical planning. PET scan negative for increased FDG concentration aside from right parietal lobe. Therefore, there is concern this may be a primary brain cancer. Tentatively optimizing and prepping patient for brain mass resection with biopsy. Consultation to hospitalist requesting for medical optimization and clearance for surgery. Patient may be mobilized with assistance, participate in PT/OT, and be on ADA diet Stable for Stepdown level of care. Please refer to Dr. Tineo's addendum for additional information, and details regarding neurosurgical input and plan of care Addendum by CRYSTAL TINEO MD on January 25, 2024 16:18:27 EST I have personally seen, examined, and evaluated the patient on the encounter date. I have reviewed the STEEL PLACER's documentation and agree with the STEEL PLACER's findings and plan as documented, unless otherwise stated. Seen, examined, and reviewed MRI from November. Clinically, her mental status is very sharp and she is awake and alert. Language is clear and fluent. She has been exhibiting several weeks of a left sided hemisensory deficit and neglect resulting in multiple falls. Strength appears preserved. MRI shows a heterogeneously enhancing lesion surrounded by infiltrated parenchyma in the posterior parietal parietal lobe with heavy involvement of primary sensory cortex. Due to the heavy cortical involvement and appearance on the outside MRI from November, I suspect this may be grade 3 oligodendroglioma. She is undergoing an updated MRI with Stealth navigation protocol and based upon these results I will make formal recommendations and outline a plan. I met with Terence and her at bedside, and anticipate will be able to meet with her children very soon. For now, we will continue with steroids and there is no evidence or history of seizures and hold on an antiepileptic [facility] 11-27-2024 NoteSinus rhythm Electronic Signature: RAMANDEEP GUAMAN MD 01/26/2024 19:01:06[facility] 11-27-[facility]24 History and physical note Date of Service 01/25/2024 Split/shared H&P with Dr. Tineo Chief Complaint Left hemiparesis, recurrent falls; findings of brain mass History of Present Illness This is a 73-year-old female with past medical history significant for hypertension, major depressive disorder, overactive bladder, drug-induced myopathy, hyperlipidemia, hypothyroidism, type 2 diabetes mellitus on Ozempic, hearing loss, GERD, right rotator cuff tendinitis, osteoarthritis of left knee, vitamin D deficiency and recently diagnosed brain mass who had seen PCP December 27, 2023 for evaluation after recurrent falls and concerns of left-sided weakness. At that time, had been provided by that patient was falling almost daily throughout the month of November. Apparently, patient had been told by PT she had left-sided weakness (per MD note). PCP ordered lab work, and brain MRIfor evaluation of left hemiparesis. Due to concern of closed head injury secondary to her falls, a noncontrast head CT was also ordered. Head CT completed in [place], report reviewed, and indicates patient, for 3.6 x 2.8 cm enhancing mass in the posterior aspect of right parietal occipital lobes with surrounding mass effect. Also with evidence of heterogeneous area of enhancement in superior right posterior parietal lobe, adjacent send cerebral vertex. She returned to PCP office 12/29/2023 to review imaging. Note reviewed, patient noted to have left hemiparesis, gait difficulty and indicated dragging the left foot. She was ordered to continue with PT, and referred to neurosurgery office. PCP ordered brain MRI, PET scan CT chest, abdomen and pelvis. Body CTs completed 12/29/23. Brain MRI completed 01/02/2024 and PET scan appears to have been compl eted on 01/03/2024- PET report indicates increased FDG concentration noted in right parietal lobe, concerning for neoplasm otherwise no other quantitatively significant hypermetabolic abnormalities noted. Patient presented to [facility] earlier this morning after sliding out of bed when she was trying to get up to go to the restroom. Was unable to bear weight on her legs, and ended up sliding down the side of the bed, striking her head on wooden bed frame. She denies LOC. was unable tohelp her up, and she could not get up due to left sided weakness. Noncontrast head CT was performedat [facility], imaging available for review. Brain mass redemonstrated, no intracranial hemorrhages visualized. ED physician discussed case with on-call neurosurgeon, Dr. Tineo. Patient received 10 mg dexamethasone x 1, and is scheduled 4mg every 6 hours. She was transferred to [facility] for further neurosurgical review and management of her care. Patient is seen lying in bed. She is in no acute distress. She is fully awake and alert. Follows commands to the best of her ability, and moves all 4 extremities. She does have left-sided hemiparesisand incoordination of the left upper and lower extremity. + mild left-sided pronator drift. Right upper and lower extremity strength is strong. Light touch sensation is intact symmetrically in bilateral upper and lower extremities as well as her face. Tongue protrudes midline. Right/left differentiation is intact. Reports she has continued to fall frequently, approximately 1 2 times per day due to ongoing left-sided hemiparesis, imbalance and gait difficulties. Indicates initially she had been using a cane, however over the past month has had to switch to using a walker. States she has to concentrate with movements of her left foot, as she states it tends to drag when she is walking. She is right- handed. Reports she is often knocking over items in the house with her left hand, due to uncoordinated movements. Reports has been experiencing intermittent headaches over the past couple months. States she does feel as if her symptoms have worsened over the past month. Review of Systems GENERAL: Denies any recent fever, chills, or night sweats. Denies any recent unintentional weight loss. SKIN: Denies skin complaints. HEENT: See HPI. Denies dizziness. Denies acute changes in visual acuity. Denies diplopia or blurredvision. Wears eyeglasses. Denies earaches, changes in hearing, or otorrhea. Denies rhinorrhea or sore throat. MS: Denies acute spinal pain. Denies acute joint pain, redness or swelling. Reports history of right rotator cuff and prior right knee surgery. RESPIRATORY: Denies shortness of breath, difficulty breathing or cough. CARDIOVASCULAR: Denies chest pain, pressure, palpitations. GI: Denies acute abdominal pain, nausea, vomiting. Denies acute changes in bowel movements/habits. : Denies dysuria or hematuria. NEUROLOGICAL: See HPI. Denies acute paresthesias. Physical Exam Vitals and Measurements No qualifying data available. General survey: 73-year-old female, appears congruent with her chronological age. Well-developed and well-nourished. Pleasant demeanor. Calm. Cooperative with exam. Accompanied by who is present at bedside. Skin: Skin is warm and dry. No rashes. HEENT: Superficial abrasion at left parieto-occipital scalp. Extraocular movements are intact; no nystagmus or gaze deviation. Pupils are equal and round, and briskly reactive to light. 3 mm in size bilaterally. No otorrhea or rhinorrhea. Oral mucosa is pink and moist. MS: Limited ROM at right shoulder due to prior rotator cuff Cardiovascular: Regular heart rate and rhythm. S1 and S2 present. No peripheral edema. Respiratory: Respirations even and unlabored. Lungs are clear bilaterally. Abdomen: Abdomen is soft, and obese. Nontender and nondistended with bowel sounds present in all 4 quadrants. Peripheral vascular: Extremities are warm. Radial and pedal pulses are 2+ and symmetric. Neurological: See HPI. Lab Results No 36 Hour Lab Data Imaging Results and Diagnostics See HPI Imaging from [facility] available on [facility] [employer], including recent Brain MRI, Brain CTs, Abd/pelvisCT, Thorax CT and PET scan Assessment/Plan Brain mass Recently diagnosed with brain mass the end of November [address]. [address] showed 3.6 x 2.8 cm enhancing mass in the posterior aspect of right parietal occipital lobes with surrounding mass effect.Also with evidence of heterogeneous area of enhancement in superior right posterior parietal lobe, adjacent send cerebral vertex. Reports ongoing left-sided hemiparesis, and balance and gait difficulties. Has had recurrent daily falls since the beginning of November. Indicates initially had been using a cane, however the past month switched to using a walker, and more recently now falling approximately 1 2 times per day. Also reports uncoordinated movements of her left hand and foot, and intermittent headaches over the past couple months. Presented to [facility] the morning of 01/25/2024 after sliding out of bed when she was trying to get up to go to the restroom but unable to bear weight on her legs and this caused her to slidedown the side the mattress striking her head on wooden bed frame. Denied LOC. Unable to get up on her own, and was also unable to. She was brought in for evaluation. Noncontrast head CT performed 01/25/24 at [facility], imaging available for review. Brain mass redemonstrated, no intracranial hemorrhages visualized. Appears to have mildly increased vasogenicedema surrounding mass and mildly increased ML shift now measuring 6 mm, previously 4mm on 12/27/23per Radiologist report. With known brain mass, increased vasogenic edema and shift, as well as frequent falls, ED physiciancontacted on-call neurosurgeon to request transfer for neurosurgical review and management of care.Dr. Tineo accepted patient for admission here. Patient loaded with 10 mg dexamethasone x 1, continued on scheduled 4 mg every 6 hours. Protonix added. At this time, will hold off on Keppra. Patient has had no seizures to her knowledge, or witnessed by family. Continue to monitor closely. Notify neurosurgery promptly with any acute concerns for seizure activity. Dr. Tineo has requested new brain MRI with and without contrast for updated imaging of brain mass. Additionally, will add Stealth MRI to orders for presurgical planning. PET scan negative for increased FDG concentration aside from right parietal lobe. Therefore, there is concern this may be a primary brain cancer. Tentatively optimizing and prepping patient for brainmass resection with biopsy. Consultation to hospitalist requesting for medical optimization and clearance for surgery. Patient may be mobilized with assistance, participate in PT/OT, and be on ADA diet Stable for Stepdown level of care. Please refer to Dr. Tineo's addendum for additional information, and details regarding neurosurgical input and plan of care Problem List/Past Medical History Ongoing Brain neoplasm tissue sample Diabetes mellitus Gait difficulty GERD - Gastro-esophageal reflux disease Hearing loss Hyperlipidemia Hypertension Hypothyroidism Neck pain Osteoarthritis STRESS INCONTINENCE, FEMALE Procedure/Surgical History Right Rotator Cuff Right knee Toe surgery Medications Refer to MAR Allergies Bee Stings Unknown Latex Unknown codeine Unknown tetanus immune globulin Unknown Social History Alcohol Use: Never., 01/20/2024 Substance Abuse Use: Never., 01/20/2024 Tobacco Nicotine Use: Never (less than 100 in lifetime)., 01/20/2024 Family History Father CHF Immunizations No qualifying data available. Code Status Full code. Digitally Signed by MADIHA ZHANG on 01/25/2024 02:41 PM [id number] Discharge summary Author Jose Oro [facility] June 29, 2023 11:59am Note Date/Time June 29, 2023 11:59a m [facility] [address] [place] [address] [address] [place] [address] / REHABILITATION SERVICES DISCHARGE SUMMARY MR#: [id number] Acct: [id number] Name: TERENCE VALDIVIA Rep #: [id number] : 1950 72 From: Cert. SHAGGY GuardadoT, OCS Referring DrMarsha: Dr. Lonny Ch MD Status : REG RCR Insurance: MEDICARE PART A B [facility] [id number] [facility] Discharge Summary D/C summary: It has been my pleasure to treat TERENCE VALDIVIA referred by Dr. Lonny Ch MD, with the diagnosis of SPONDYLOSIS MYELOPATHY OR RADICULIPATHY ,LUMABR ,SPONDYLOSIS THORACIC for a total of 9 visit(s). Discharge Date: 06/29/23 Please see the following information for a summary of their discharge status. Subjective Subjective: Doing good no pain Pain Bilateral Back: Pain Intensity (Out of 10): 0 Overall Improvement % Improvement: 100 Objective Objective/Function: Patient to benefit from skilled PT to improve function with waling standing for ADLS goals where addressed and progressing and continues to benefit from PT intervention* POSTURE: mild thoracic kyphosis ,hip/knees flexed GAIT: reciprocal pattern mild forward posture PALPATION: unremarkable SYMMETRIES: align FLEXIBILITY: hamstrings mod tight LUMBAR ROM: flexion min loss ,extension mod/severe loss ,side glides /minmod loss MMT: ( peak force) quads left 39.1 ,right 37.9 , hamstrings left 371 ,right 35.2, hip flexion 24.8 right ,left 21.8 ,elie 4/5 Goals Goal 1:: Patient to be I with HEP for back Goal Progress: Goal Met Goal 2:: Patient to demonstrate 50% improvement with less pain and improved function Goal Progress: Goal Met Goal 3:: Patient to improve lumbar ROM for function of recovery for ADLS and lifting laundry basket Goal Progress: Goal Met Goal 4:: Patient to improve back oswestry score by 5 points to improve QOL and function Goal Progress: Goal Met Goal 5:: Patient be able to stand > 15 MINS to to dishes and cleaning Goal Progress: Goal Met Plan Plan: D/C HEP D/C Information Discharge Comments: HEP d/c sentence: If there are questions or concerns regarding this patient's physical therapy, please feel free to call me at [phone]. Thank you for the referral of thispatient. Sincerely, Jose Oro PT, Cert MDT, OCS Balance/Gait/Functional tests Balance/Special Test Scores Oswestry Low Back Score: 32 Quick DASH Score: 0 Improvement % Improvement: 100 <Electronically signed by Jose Oro PT, Cert. MDT, OCS> 06/29/23 1215 CC: Dr. Lonny Ch MD; Dr. Will Lim MD ~ MARGARITA Signed [facility] Work Phone: 1(918) 874-245103-11-2024 Discharge summary Author Jose Oro [facility] May 09, 2023 6:02pm Note Date/Time May 09, 2023 11: 56am [facility] [address] [place] [address] / REHABILITATION SERVICES DISCHARGE SUMMARY MR#: [id number] Acct: [id number] Name: TERENCE VALDIVIA Rep #: [id number] : 1950 72 From: Cassidy Guardado. ESTAURDO, OCS Referring Dr.: Dr. Az Franco MD Status: REG RCR Insurance: MEDICARE PART A B [facility] [id number] [place] [address] Discharge Summary D/C summary: It has been my pleasure to treat TERENCE VALDIVIA referred by Dr. Az Franco MD, with the diagnosis of PRIMARY OSTEOARTHRITIS RIGHT SHOULDER,SPECIFIED DISORDER OF TENDON SHOULDER for a total of 8 visit(s). Discharge Date: Please see the following information for a summary of their discharge status. Subjective Subjective: Doing great ready for d/c Pain Right Shoulder: Pain Intensity (Out of 10): 0 Overall Improvement % Improvement: 90 Objective Objective/Function: POSTURE: rounded shoulders head forward PALAPTION: tender UT/levator NEURO: denies paresthesia/tingling AROM : shoulder flexion 1500 degrees ,abduction 150 degrees pain ,ER 90 degrees ,IR L1 ( MMT: ( peak force) infraspinatus 28 ,subscapularis 29.8 ,supraspinatus 19.6pain ,deltoid 20.6 CAPSULAR G-H: WFL Goals Goal 1:: Patient to be I with HEP Goal Progress: Goal Met Goal 2:: Patient to be 50% improvement with increase function and less pain Goal Progress: Goal Met Goal 3:: Patient to improve Quick dash 5 points to improve to improve function Goal Progress: Goal Met Goal 4:: Patient to improve AROM shoulder flexion/abduction by 140 degrees to improve ADLS and housework tasks Goal Progress: Goal Met Goal 5:: Patient to improve peak force RTC/deltoid by 5-10 # to improve strengthand function Goal Progress: Goal Met Plan Plan: D/C D/C Information d/c sentence: If there are questions or concerns regarding this patient's physical therapy, please feel free to call me at [phone]. Thank you for the referral of thispatient. Sincerely, Jose Oro, PT, Cert MDT, OCS Balance/Gait/Functional tests Balance/Special Test Scores Quick DASH Score: 11.3625 Improvement % Improvement: 90 <Electronically signed by Jose Oro PT, Cert. MDT, OCS> 05/09/23 1802 CC: Dr. Az Franco MD; Dr. Will Lim MD ~ JLA Signed [facility] Work Phone: Evaluation + Plan note Future Appointments Appointment Date:03/06/2024 01:15:00 PM Scheduled Provider: Location:RAD Appointment Type:MRI Brain w/ + w/o Contrast Appointment Date:03/08/2024 11:15:00 AM Scheduled Provider:ROSEMARIE TINEO MD Location:NEUROS Appointment Type:NS Post Op Appointment Date:03/22/2024 11:30:00 AM Scheduled Provider:LUPE GONZALEZ MD Location:HEM ONC Appointment Type:HEM ONC OV Follow Up Future Scheduled Tests Laboratory* Lactate Dehydrogenase 03/23/24 * Complete Blood Count 03/23/24 * Complete Metabolic Panel 03/23/24 Radiology* MRI Brain w/ + w/o Contrast 03/06/24 [facility] Evaluation + Plan note Future Appointments Appointment Date:03/22/2024 09:00:00 AM Scheduled Provider:ROSEMARIE TINEO MD Location:NEUROS Appointment Type:NS Post Op Appointment Date:03/22/2024 11:30:00 AM Scheduled Provider:LUPE GONZALEZ MD Location:HEM ONC Appointment Type:HEM ONC OV Follow Up Future Scheduled Tests Laboratory* Lactate Dehydrogenase 03/23/24 * Complete Blood Count 03/23/24 * Complete Metabolic Panel 03/23/24 [facility] Evaluation + Plan note Future Appointments Appointment Date:04/05/2024 03:00:00 PM Scheduled Provider:LUPE GONZALEZ MD Location:HEM ONC Appointment Type:HEM ONC OV Follow Up Future Scheduled Tests Laboratory* Lactate Dehydrogenase 03/23/24 * Complete Blood Count 03/23/24 * Complete Blood Count 04/05/24 * Complete Metabolic Panel 03/23/24 * Complete Metabolic Panel 04/05/24 [facility] evaluation + Plan note Future Appointments Appointment Date:05/14/2024 03:30:00 PM Scheduled Provider: Location:RAD Appointment Type:MRI Brain w/ + w/o Contrast Appointment Date:05/23/2024 01:00:00 PM Scheduled Provider:CLINTON GILBERT MD Location:RAD ONC CAN Appointment Type:RO Follow Up 30 Appointment Date:05/23/2024 03:00:00 PM Scheduled Provider:LUPE GONZALEZ MD Location:HEM ONC Appointment Type:HEM ONC OV Follow Up Future Scheduled Tests Laboratory* Lactate Dehydrogenase 03/23/24 * Lactate Dehydrogenase 05/17/24 * Complete Blood Count 03/23/24 * Complete Blood Count 05/17/24 * Complete Metabolic Panel 03/23/24 * Complete Metabolic Panel 05/17/24 Radiology* MRI Brain w/ + w/o Contrast 05/14/24 [facility] evaluation + Plan note Future Appointments Appointment Date:06/20/2024 02:00:00 PM Scheduled Provider:LUPE GONZALEZ MD Location:HEM ONC Appointment Type:HEM ONC OV Follow Up w/ Future Scheduled Tests Laboratory* Lactate Dehydrogenase 03/23/24 * Lactate Dehydrogenase 06/20/24 * Complete Blood Count 03/23/24 * Complete Blood Count 06/20/24 * Complete Metabolic Panel 03/23/24 * Complete Metabolic Panel 06/20/24 Radiology* MRI Brain w/ + w/o Contrast 05/23/24 * MRI Brain w/ Contrast 05/23/24 [facility] evaluation + Plan note Future Appointments Appointment Date:07/11/2024 01:00:00 PM Scheduled Provider:CLINTON GILBERT MD Location:RAD ONC CAN Appointment Type:RO Established Patient Appointment Date:07/18/2024 11:15:00 AM Scheduled Provider:LUPE GONZALEZ MD Location:HEM ONC Appointment Type:HEM ONC OV Follow Up w/ Future Scheduled Tests Laboratory* Lactate Dehydrogenase 03/23/24 * Lactate Dehydrogenase 07/18/24 * Complete Blood Count 03/23/24 * Complete Blood Count 07/18/24 * Complete Metabolic Panel 03/23/24 * Complete Metabolic Panel 07/18/24 Radiology* MRI Brain w/ + w/o Contrast 05/23/24 * MRI Brain w/ Contrast 05/23/24 [facility] evaluation + Plan note Future Appointments Appointment Date:08/15/2024 11:45:00 AM Scheduled Provider:LUPE GONZALEZ MD Location:HEM ONC Appointment Type:HEM ONC OV Follow Up w/MD Appointment Date:10/12/2024 11:45:00 AM Scheduled Provider: Location:RAD Appointment Type:MRI Brain w/ + w/o Contrast Appointment Date:10/17/2024 11:00:00 AM Scheduled Provider:CLINTON GILBERT MD Location:RAD ONC CAN Appointment Type:RO Follow Up 30 Future Scheduled Tests Laboratory* Lactate Dehydrogenase 03/23/24 * Lactate Dehydrogenase 08/15/24 * Complete Blood Count 03/23/24 * Complete Blood Count 08/15/24 * Complete Metabolic Panel 03/23/24 * Complete Metabolic Panel 08/15/24 Radiology* MRI Brain w/ + w/o Contrast 10/12/24 * MRI Brain w/ + w/o Contrast 05/23/24 * MRI Brain w/ Contrast 05/23/24 [facility] evaluation + Plan note Future Appointments Appointment Date:09/05/2024 01:00:00 PM Scheduled Provider:LUPE GONZALEZ MD Location:HEM ONC Appointment Type:Telephone Appointment Date:10/12/2024 11:45:00 AM Scheduled Provider: Location:RAD Appointment Type:MRI Brain w/ + w/o Contrast Appointment Date:10/17/2024 11:00:00 AM Scheduled Provider:CLINTON GILBERT MD Location:RAD ONC CAN Appointment Type:RO Follow Up 30 Future Scheduled Tests Laboratory* Lactate Dehydrogenase 09/12/24 * Lactate Dehydrogenase 03/23/24 * Complete Blood Count 09/12/24 * Complete Blood Count 03/23/24 * Complete Metabolic Panel 09/12/24 * Complete Metabolic Panel 03/23/24 Radiology* MRI Brain w/ + w/o Contrast 10/12/24 * MRI Brain w/ + w/o Contrast 05/23/24 * MRI Brain w/ Contrast 05/23/24 [facility] Evaluation noteNo assessment information available [facility] Work Phone: Evaluation note* Diagnosis Onset Date Resolution Status Cervical myelopathy acute Spondylolisthesis, cervical region acute [facility] Work Phone: Evaluation note* Diagnosis Onset Date Resolution Status Cervical myelopathy acute Spondylolisthesis, cervical region acute Cervical myelopathy acute Spondylolisthesis, cervical region acute Spondylolisthesis, cervical region acute [facility] Work Phone: Evaluation note* Diagnosis Onset Date Resolution Status Cervical myelopathy acute Spondylolisthesis, cervical region acute Cervical myelopathy acute Spondylolisthesis, cervical region acute Spondylolisthesis, cervical region acute Primary osteoarthritis, right shoulder acute Tendinosis of right shoulder acute [facility] Work Phone: Evaluation note* Diagnosis Onset Date Resolution Status Cervical myelopathy acute Spondylolisthesis, cervical region acute Spondylolisthesis, cervical region acute Primary osteoarthritis, right shoulder acute Tendinosis of right shoulder acute Spondylolisthesis, cervical region acute [facility] Work Phone: Evaluation note* Diagnosis Malignant neoplasm of brain, unspecified documented in this encounter [facility] Work Phone: Hospital course Narrative No data available for this section [facility] Hospital Discharge instructions Additional Instructions Please follow-up with your PCP. Return for any worsening of symptoms. Do not take the Flexeril and drive, it may make you drowsy.[facility] Work Phone: Hospital Discharge instructions Additional Instructions Follow-up with your PCP and return for any worsening of your symptoms. You can take Tylenol as needed for your pain. Ice your shoulder several times a day for the next few days.[facility] Work Phone: Hospital Discharge instructions No data available for this section [facility] Procedure note* Corrina Johansen: PERFORM Event Display: Procedure Note Authored Date: [facility] Progress note No data available for this section [facility] Reason for referral (narrative)No reason for referral information availableWSt. [facility] Work Phone: Reason for visit Narrative* Imaging (Routine) - Authorized Specialty Diagnoses / Procedures Referred By Contac t Referred To Contact Radiology Diagnoses Malignant neoplasm of brain, unspecified Procedures MR brain tumor perfusion protocol w and wo IV contrast Clinton Gilbert MD [address] [place] [address] Phone: tel: fax: Referral ID Status Reason Start Date Expiration Date Visits Requested Visits Authorized [id number] Authorized Perform Procedure 05/24/2024 05/24/2025 1 1 [facility] Work Phone: Reason for visit Narrative* Imaging (Routine) - Pending Review Specialty Diagnoses / Procedures Referred By Contcaesar t Referred To Contact Radiology Diagnoses Malignant neoplasm of brain, unspecified Procedures MR spectroscopy MR brain w and wo IV contrast Clinton Gilbert MD [address] [place] [address] Phone: tel: fax: Referral ID Status Reason Start Date Expiration Date Visits Requested Visits Authorized [id number] Pending Review Perform Procedure 05/24/2024 05/24/2025 1 1 [facility] Work Phone: Chief Complaint and Reason for Visit Chief Complaint POST ANDI Chief Complaint POST ANDI BACK PAIN Chief Complaint POST ANDI BACK PAIN DUE ON OR AROUND DATE LISTED PER ORDER Chief Complaint DUE ON OR AROUND DU E LISTED PER ORDER Chief Complaint SCREENING Chief Complaint SCREENING FALL Chief Complaint SCREENING FALL RIGHT SHOULDER RIGHT SHOULDER Xray CERVICAL MYELOPATHY Reason for Visit Cervical myelopathy Spondylolisthesis, cervical region Chief Complaint FALL RIGHT SHOULDER RIGHT SHOULDER Xray CERVICAL MYELOPATHY RIGHT SHOULDER CERVICAL SPINE RIGHT SHOULDER PAIN Reason for Visit Cervical myelopathy Spondylolisthesis, cervical region Cervical myelopathy Spondylolisthesis, cervical region Spondylolisthesis, cervical region Chief Complaint FALL RIGHT SHOULDER RIGHT SHOULDER Xray CERVICAL MYELOPATHY RIGHT SHOULDER CERVICAL SPINE RIGHT SHOULDER PAIN RIGHT SHOULDER R SHOULDER. RX HERE Reason for Visit Cervical myelopathy Spondylolisthesis, cervical region Cervical myelopathy Spondylolisthesis, cervical region Spondylolisthesis, cervical region Primary osteoarthritis, right shoulder Tendinosis of right shoulder Chief Complaint FALL RIGHT SHOULDER RIGHT SHOULDER Xray CERVICAL MYELOPATHY RIGHT SHOULDER CERVICAL SPINE RIGHT SHOULDER PAIN RIGHT SHOULDER R SHOULDER. RX HERE SCREENING Reason for Visit Cervical myelopathy Spondylolisthesis, cervical region Cervical myelopathy Spondylolisthesis, cervical region Spondylolisthesis, cervical region Primary osteoarthritis, right shoulder Tendinosis of right shoulder Chief Complaint FALL RIGHT SHOULDER RIGHT SHOULDER Xray CERVICAL MYELOPATHY RIGHT SHOULDER CERVICAL SPINE RIGHT SHOULDER PAIN RIGHT SHOULDER R SHOULDER. RX HERE SCREENING Spondylosis without myelopathy or radiculopathy, l Reason for Visit Cervical myelopathy Spondylolisthesis, cervical region Cervical myelopathy Spondylolisthesis, cervical region Spondylolisthesis, cervical region Primary osteoarthritis, right shoulder Tendinosis of right shoulder Chief Complaint CERVICAL MYELOPATHY RIGHT SHOULDER CERVICAL SPINE RIGHT SHOULDER PAIN RIGHT SHOULDER R SHOULDER. RX HERE SCREENING Spondylosis without myelopathy or radiculopathy, l CERVICAL SPINE BACK RX HERE REQUEST NOLVIA Reason for Visit Cervical myelopathy Spondylolisthesis, cervical region Spondylolisthesis, cervical region Primary osteoarthritis, right shoulder Tendinosis of right shoulder Spondylolisthesis, cervical region Chief Complaint Admit Date BILATERAL WEAKNESS OF LEGS. RX HERE Jese zavala 2023 11:00am fall January 25, 2024 3:40am LAB WORK February 13, 2024 5:00am LAB WORK February 15, 2024 5:00am LAB WORK February 20, 2024 5:00am LAB WORK February 27, 2024 5:00am LAB WORK March 05, 2024 5: 00am LAB WORK March 14, 2024 5 :35am LAB WORK April 02, 2024 4 :00am LAB WORK April 16, 2024 4:00am HEADACHE April 26, 2024 2:28pm HYDRATION April 27, 2024 8:49am Chief Complaint Admit Date LAB WORK February 13, 2024 5:00am LAB WORK February 15, 2024 5:00am LAB WORK February 20, 2024 5:00am LAB WORK February 27, 2024 5:00am LAB WORK March 05, 2024 5: 00am LAB WORK March 14, 2024 5 :35am LAB WORK April 02, 2024 4 :00am LAB WORK April 16, 2024 4:00am HEADACHE April 26, 2024 2:28pm HYDRATION April 27, 2024 8:49am Advance Directives No Advanced Directives Records Found Advance Directive Response Recorded Date/ Time Name of Medical Power of Clinical Lab Assistant NERY RECINOS April 30, 2022 11:22am Living Will Yes April 30, 2022 11:22am Power of Clinical Lab Assistant Yes April 30 11:22am Advance Directive Response Recorded Date/ Time Name of Medical Power of Clinical Lab Assistant NERY CLARKE April 30, 2022 12:22pm Living Will Yes April 30, 2022 12:22pm Power of Clinical Lab Assistant Yes April 30 12:22pm Advance Directive Response Recorded Date/ Time Living Will Yes April 30, 2022 12:22pm Power of Clinical Lab Assistant Yes April 30 12:22pm Advance Directive Response Recorded Date/ Time Living Will Yes April 30, 2022 11:22am Power of Clinical Lab Assistant Yes April 30 11:22am Advance Directive Response Recorded Date/ Time Name of Medical Power of Clinical Lab Assistant Nery Clarke February 01, 2023 1:12pm Living Will Yes February 01 1:12pm Power of Clinical Lab Assistant Yes February 01, 2023 1:12pm Advance Directive Response Recorded Date/ Time Name of Medical Power of Clinical Lab Assistant Nery Clarke February 01, 2023 2:12pm Living Will Yes February 01 2:12pm Power of Clinical Lab Assistant Yes February 01, 2023 2:12pm Advance Directive Response Recorded Date/ Time Living Will Yes February 01 2:12pm Power of Clinical Lab Assistant Yes February 01, 2023 2:12pm Advance Directive Response Recorded Date/ Time Living Will No January 24, 2 024 4:46am Power of Clinical Lab Assistant No January 25, 2024 4:46am Living Will Yes February 01 2:12pm Power of Clinical Lab Assistant Yes February 01, 2023 2:12pm Summary Purpose Family History No Family History Records Found Additional Source Comments Goals (unrecognized section and content) Goals may be documented in a n alternate sectionGoals may be documented in an alternate sectionGoals may be documented in an alternate sectionGoals may be documented in an alternate sectionGoals may be documented in an alternate sectionGoals may be documented in an alternate sectionGoals may be documented in an alternate sectionGoals may be documented in an alternate sectionGoals may be documented in an alternate sectionGoals may be documented in an alternate sectionGoals may be documented in an alternate sectionGoals may be documented in an alternate sectionGoals may be documented in an alternate sectionGoals may be documented in an alternate sectionGoals may be documented in an alternate sectionGoals may be documented in an alternate section No data available for this section No data available for this section No data available for this section No data available for this section No data available for this section No data available for this section No data available for this sectionGoals may be documented in an alternate sectionGoals may be documented in an alternate section No data available for this section No data available for this section No data available for this section Care Teams (unrecognized sec tion and content) Team Status: Active Member Role Status Dates Dr. Will Lim MD Primary Care Provider Active Team Status: Active Member Role Status Dates Dr. Will Lim MD Primary Care Provider Active Start: February 13, 2024 Dr. Michaela SHAFER MD Attending Provider Active Start: February 13, 2024 Team Status: Active Member Role Status Dates Dr. Will Lim MD Primary Care Provider Active Start: February 15, 2024 Dr. Michaela SHAFER MD Attending Provider Active Start: February 15, 2024 Team Status: Active Member Role Status Dates Dr. Will Lim MD Primary Care Provider Active Start: February 20, 2024 Dr. Michaela SHAFER MD Attending Provider Active Start: February 20, 2024 Team Status: Active Member Role Status Dates Dr. Will Lim MD Primary Care Provider Active Start: February 27, 2024 Dr. Michaela SHAFER MD Attending Provider Active Start: February 27, 2024 Team Status: Active Member Role Status Dates Dr. Will Lim MD Primary Care Provider Active Start: March 05, 2024 Dr. Michaela SHAFER MD Attending Provider Active Start: March 05, 2024 Team Status: Active Member Role Status Dates Dr. Will Lim MD Primary Care Provider Active Start: March 14, 2024 Dr. Michaela SHAFER MD Attending Provider Active Start: March 14, 2024 Dr. Michaela SHAFER MD Referring Provider Active Start: March 14, 2024 Team Status: Active Member Role Status Dates Dr. Will Lim MD Primary Care Provider Active Start: April 02, 2024 Dr. Michaela SHAFER MD Attending Provider Active Start: April 02, 2024 Dr. Michaela SHAFER MD Referring Provider Active Start: April 02, 2024 Team Status: Active Member Role Status Dates Dr. Will Lim MD Primary Care Provider Active Start: April 16, 2024 Dr. Michaela SHAFER MD Attending Provider Active Start: April 16, 2024 Dr. Michaela SHAFER MD Referring Provider Active Start: April 16, 2024 Team Status: Inactive Member Role Status Dates Dr. Will Lim MD Primary Care Provider Active Start: April 19, 2024 End: April 19, 2024 Dr. Will Lim MD Attending Provider Active Start: April 19, 2024 End: April 19, 2024 Dr. Will Lim MD Referring Provider Active Start: April 19, 2024 End: April 19, 2024 Team Status: Inactive Member Role Status Dates Dr. Will Lim MD Primary Care Provider Active Start: April 26, 2024 End: April 26, 2024 Dr. Will Lim MD Attending Provider Active Start: April 26, 2024 End: April 26, 2024 Team Status: Inactive Member Role Status Dates Dr. Will Lim MD Primary Care Provider Active Start: April 27, 2024 End: April 27, 2024 Dr. Will Lim MD Attending Provider Active Start: April 27, 2024 End: April 27, 2024 Dr. Will Lim MD Referring Provider Active Start: April 27, 2024 End: April 27, 2024 Team Status: Inactive Member Role Status Dates Dr. Will Lim MD Primary Care Provider Active Start: May 29, 2024 End: May 29, 2024 Dr. Will Lim MD Attending Provider Active Start: May 29, 2024 End: May 29, 2024 Dr. Will Lim MD Referring Provider Active Start: May 29, 2024 End: May 29, 2024 Team Status: Active Member Role Status Dates Ebony More MD Family Provider Active Dr. Will Lim MD Primary Care Provider Active Team Status: Inactive Member Role Status Dates Dr. Will Lim MD Primary Care Provider, Attending Provider Active Team Status: Inactive Member Role Status Dates Dr. Will Lim MD Primary Care Provider Active Dr. Mauro Burr MD Attending Provider Active Team Status: Inactive Member Role Status Dates Dr. Will Lim MD Primary Care Provider Active Dr. Iraj Craig DO Emergency Provider Active Team Status: Inactive Member Role Status Dates Dr. Will Lim MD Primary Care Provi keshav, Attending Provider, Referring Provider Active Team Status: Inactive Member Role Status Dates Dr. Will Lim MD Primary Care Provider Active Dr. Iraj Craig DO Attending Provider, Emergency P rovider Active Team Status: Inactive Member Role Status Dates Dr. Will Lim MD Primary Care Provider Active Dr. Ronak Sarmiento MD Referring Provider, Emergency Pro vider Active Team Status: Inactive Member Role Status Dates Dr. Will Lim MD Primary Care Provider, Referring Provider Active Az Franco MD Attending Provider Active Team Status: Inactive Member Role Status Dates Dr. Will Lim MD Primary Care Provider, Referring Provider Active Dr. Marcellus Bailon MD Attending Provider Active Team Status: Inactive Member Role Status Dates Dr. Will Lim MD Primary Care Provider Active Dr. Tyrone Isabel MD Attending Provider Active Team Status: Inactive Member Role Status Dates Dr. Will Lim MD Primary Care Provider Active Dr. Marcellus Bailon MD Attending Provider, Referring Pr ovider Active Team Status: Inactive Member Role Status Dates Dr. Will Lim MD Primary Care Provider Active Dr. Ronak Sarmiento MD Attending Provider, Referring Provider, Emergency Provider Active Team Status: Inactive Member Role Status Dates Dr. Will Lim MD Primary Care Provider Active Az Franco MD Attending Provider, Referring Prov ider Active Team Status: Inactive Member Role Status Dates Dr. Will Lim MD Primary Care Provider Active Dr. Lonny Ch MD Attending Provider, Referrin g Provider Active Team Status: Inactive Member Role Status Dates Dr. Will Lim MD Primary Care Provider Active Start: January 12, 2024 End: January 12, 2024 Dr. Will Lim MD Attending Provider Active Start: January 12, 2024 End: January 12, 2024 Dr. Will Lim MD Referring Provider Active Start: January 12, 2024 End: January 12, 2024 Team Status: Inactive Member Role Status Dates Dr. Will Lim MD Primary Care Provider Active Start: January 25, 2024 End: January 25, 2024 Dr. Charles Rico MD Attending Provider Active Start: January 25, 2024 End: January 25, 2024 Dr. Charles Rico MD Emergency Provider Active Start: January 25, 2024 End: January 25, 2024 INFORMATION SOURCE (unrecogn ized section and content) DATE CREATED AUTHOR 06/12/2024 [facility] DATE CREATED AUTHOR AUTHOR'S ORGANIZ ATION 07/12/2024 [facility] DATE CREATED AUTHOR AUTHOR'S ORGANIZ ATION 07/13/2024 [facility] DATE CREATED AUTHOR AUTHOR'S ORGANIZ ATION 08/18/2024 [facility] FOR RECORDS PERTAINING TO PATIENTS WHO ARE OR HAVE BEEN ENROLLED IN A CHEMICAL DEPENDENCY/SUBSTANCEABUSE PROGRAM, SOME INFORMATION MAY BE OMITTED. This clinical summary was aggregated from multiple sources. Caution should be exercised in using it in the provision of clinical care. This summary normalizes information from multiple sources, and as a consequence, information in this document may materially change the coding, format and clinical context of patient data. In addition, data may be omitted in some cases. CLINICAL DECISIONS SHOULD BE BASED ON THE PRIMARY CLINICAL RECORDS. [facility]. provides no warranty or guarantee of the accuracy or completeness of information in this document.
[2024-08-24 09:35] LABS: ALB/GLOB Ratio 1.6 RATIO (0.9-2.4); AST(SGOT) 29 U/L (<=31); Alanine Aminotransfer ALT/SGPT 31 U/L (<=34); Alkaline Phosphatase 128 U/L (35-104); Anion Gap 12 (5-15); BUN 9 mg/dL (4-19); BUN/Creat Ratio 10.1 RATIO (10-20); Calcium,Total 9.6 mg/dL (7.6-11.0); Chloride 103 mmol/L (98-108); Cholesterol 174 mg/dL (<=200); EST Glomerular Filtration Rate 68 (>60); Globulin 2.5 g/dL (2.2-4.2); Glucose 172 mg/dL (70-99); High Density Lipoprotein 41 mg/dL; Low Density Lipoprotein Calc. 111 mg/dL; Potassium 4.2 mmol/L (3.3-5.1); Protein, Total 6.5 g/dL (5.9-8.4); Sodium Level 139 mmol/L (133-145); Total Bilirubin 0.94 mg/dL (0.00-1.30); Triglycerides 109 mg/dL; Very Low Density Lipoprotein 22 mg/dL (5-40); cholesterol:hdl ratio screen 4.22
[2024-08-24 09:47] LABS: Thyroid Stim Hormone (TSH) 0.373 uIU/mL (0.300-4.200); Vitamin B12 816 pg/mL (180-914); Vitamin D,25 Hydroxy 24.4 ng/mL (30-100)
== END ==
PROVIDERS: PCP Family Medicine Geriatric Medicine; Visit Provider Family Medicine
DX: E55.9 Vitamin D deficiency, unspecified (principal); E11.9 Type 2 diabetes mellitus without complications; E78.5 Hyperlipidemia, unspecified; I10 Essential (primary) hypertension
CPT/HCPCS: 36415; 80053; 80061; 82306; 82607; 83036; 84439; 84443

== ENCOUNTER 2024-10-22 15:49 | Emergency (ER) | payer MEDICARE, OTHER, SELFPAY ==
[2024-10-22 15:50] VITALS: BP 114/76; PULSE 99; RESP 15; TEMP 36.4; O2SAT 98
--- NOTE | 2024-10-22 16:10 | RAD_ITS ---
PROCEDURE: HAND MIN 3 VIEWS 10/22/2024 REASON FOR EXAM: FALL TECHNIQUE: HAND MIN 3 VIEWS FINDINGS: Acute, nondisplaced oblique fracture of the 5th proximal phalanx metadiaphysis. Degenerative changes of the hand and wrist. RAD/Hand Min 3 Views IMPRESSION: Acute, nondisplaced oblique fracture of the 5th proximal phalanx metadiaphysis. Reading Location: [id number]
--- NOTE | 2024-10-22 16:10 | RAD_ITS ---
PROCEDURE: ELBOW MIN 3 VIEWS 10/22/2024 REASON FOR EXAM: FALL TECHNIQUE: ELBOW MIN 3 VIEWS Laterality: FINDINGS: No evidence of acute fracture or dislocation. Degenerative changes of the elbow. No elbow joint effusion. RAD/Elbow min 3 Views IMPRESSION: No acute osseous abnormalities. Reading Location: [id number]
--- NOTE | 2024-10-22 18:46 | ED.VIS.FALL ---
HPI HPI - Fall History of Present Illness Chief Complaint: Fall Narrative Narrative: Patient is a 73-year-old female presenting to the emergency department for a fall with left hand pain. Patient has a past medical history of a brain tumor and states that she always has issues with her left side particularly her leg giving out. States that she went to transfer from her bed to her wheelchair when she lost her balance due to her left leg giving out, falling onto her left hand. She denies hitting her head or any other injuries. Denies neck or back pain. She is not on OAC. PFSH PFS Medical History Brain tumor Tendinosis of right shoulder Primary osteoarthritis, right shoulder Right shoulder tendonitis Type 2 diabetes mellitus Home Medications ?Medication ?Instructions ?Recorded ?Last Taken ?Type levothyroxine 137 mcg tablet 137 mcg PO DAILY 04/30/22 Unknown History losartan 50 mg tablet 50 mg PO DAILY 04/30/22 Unknown History multivitamin 1 tab PO DAILY 04/30/22 Unknown History Held on 04/27/24. Instructions: not taking solifenacin 10 mg tablet 10 mg PO DAILY 04/30/22 Unknown History venlafaxine 75 mg capsule,extended 75 mg PO DAILY 04/30/22 Unknown History release 24 hr vitamins A,C,M-voqq-oubizg 2,148 2 tab PO DAILY 04/30/22 Unknown History mcg-113 mg-45 mg-17.4 mg tablet (PreserVision AREDS) bupropion HCl 200 mg tablet,12 hr 200 mg PO DAILY 06/21/23 Unknown History sustained-release Allergy/AdvReac Type Severity Reaction Status Date / Time bee venom protein (honey Allergy Swelling Verified 10/22/24 15:50 bee) (bee stings) codeine Allergy Nausea Verified 10/22/24 15:50 Tetanus Vaccines and Toxoid Allergy Swelling Verified 10/22/24 15:50 Family History Father CHF (congestive heart failure) Surgical History History of knee surgery Social History housing: house Smoking Status: Never smoker ROS ROS ED ROS Narrative see HPI EXAM Physical Exam Narrative Exam Narrative: Vital signs: Reviewed General: Alert and orientedx3. No acute distress HEENT: Head is normocephalic and atraumatic, sinuses nontender, pupils equal round and reactive. Nares are patent. Oropharynx and throat exams normal. Neck: Supple without lymphadenopathy nontender. No midline cervical spinal tenderness palpation. No step-offs or deformities. Cardiovascular: Regular rate and rhythm, no murmurs. No rubs or gallops. Normal S1 and S2 Respiratory: Clear to auscultation bilaterally. No wheezes, rales, rhonchi Abdominal: Soft and nontender. Normal bowel sounds. No guarding or rebound. Nonsurgical abdomen Extremities: There is tenderness to palpation at the base of the left fifth finger with ecchymosis and mild swelling. There is no tenderness to palpation of the metacarpals, forearm, elbow, humerus or shoulder. Sensation and motor intact in radial, median and ulnar distributions. Compartments are soft. Radial pulse intact bilaterally. There is a superficial abrasion to the proximal forearm below the elbow. Skin: No rash or redness. Neurological: Cranial nerves II through XII are grossly intact. Normal strength and sensation. Normal cerebellar function The rest of the physical exam is unremarkable Const Vital Signs: 10/22/24 15:50 10/22/24 16:49 Temperature 97.5 F L Temperature Source Temporal Pulse Rate 99 Respiratory Rate 15 Respiratory Effort Normal Non-Labored Blood Pressure 114/76 Blood Pressure Mean 88 Pulse Ox 98 Oxygen Delivery Method Room Air Room Air MDM MDM MDM Narrative Medical decision making narrative: Patient is a 73-year-old female presenting to the emergency department after a mechanical fall. Patient was seen and examined. Resting in bed comfortably in no acute distress. Imaging was ordered prior to my evaluation of the patient which included a hand and elbow x-ray of the left side. X-ray was reviewed by myself and shows a fracture of the fifth proximal phalanx. Radiology read with an acute nondisplaced oblique fracture of the fifth proximal phalanx metadiaphysis. Elbow x-ray with no acute osseous abnormalities. Patient remembers the fall and it was purely mechanical, no indication for additional imaging or labs. She did not hit her head, no OAC, no neck or back pain, neuro intact on exam. Neurovascularly intact. Placed in an ulnar gutter splint. Given orthopedic follow-up for 1 week. Placed in a sling for comfort. Encouraged take Tylenol or Motrin for pain control and ice at home. Patient discharged from the Emergency Department. I do not feel that the patient's evaluation reveals any acute reason for admission at this time. I instructed them to either follow-up with their primary care physician or promptly return to the Emergency Department for reevaluation should symptoms worsen or new symptoms develop. I explained what symptoms would indicate the need to return to the emergency department. Shared decision making was used. The patient voiced understanding of the treatment plan and is agreeable with it. Clinical impression Fifth proximal phalanx fracture Fall History & Record Review Discussion w/independent historian: Patient and Family Radiography Diagnostic Testing: Clinical Impression(s) from Imaging Studies Elbow X-Ray 10/22/24 16:10 IMPRESSION: No acute osseous abnormalities. Reading Location: [facility] Hand X-Ray 10/22/24 16:10 IMPRESSION: Acute, nondisplaced oblique fracture of the 5th proximal phalanx metadiaphysis. Reading Location: [facility] Discharge Plan Triage Chief Complaint: Fall ED Provider: Serena Bee Dx/Rx/DC Orders Clinical Impression: Proximal phalanx fracture of finger, Fall Instructions: ED Fracture, Finger, Closed, ED Fall Prevention Prescriptions: No Action bupropion HCl 200 mg tablet sustained-release 12 hr 200 mg PO DAILY multivitamin Tablet 1 tab PO DAILY losartan 50 mg tablet 50 mg PO DAILY levothyroxine 137 mcg Tablet 137 mcg PO DAILY venlafaxine 75 mg Capsule,Extended Release 24hr 75 mg PO DAILY solifenacin 10 mg Tablet 10 mg PO DAILY PreserVision AREDS 2,148 mcg-113 mg-45 mg-17.4mg tablet 2 tab PO DAILY Patient Comments: twice a day Primary Care Provider: Az Ennis Referrals: Turner Zavala DO [Med Staff - Active Staff] - 1 Week Az Ennis DO [Primary Care Provider] - Activity Restrictions/Additional Instructions: Follow-up with the orthopedic doctor below in 1 week. Please keep the splint dry. Take tylenol and motrin at home for pain control and ice the hand. Your evaluation in the Emergency Department did not reveal any acute reason for admission. However, I want to emphasize that you may be early in the course of a disease process or illness even if it is not present. For this reason you should follow-up within 24 hours for reevaluation with either your primary care physician or if necessary back here in the Emergency Department. You should return to the Emergency Department immediately if your symptoms worsen or new symptoms develop. Print Language: Chadian Disposition Disposition: Home, Self Care
[2024-10-22 18:55] VITALS: BP 114/76; PULSE 99; RESP 15; TEMP 36.4; O2SAT 98
== END 2024-10-22 18:56 | disposition home or self-care (01) ==
PROVIDERS: Emergency Provider Student in an Organized Health Care Education/Training Program; Visit Provider Student in an Organized Health Care Education/Training Program
DX: S62.647A Nondisplaced fracture of proximal phalanx of left little finger, initial encounter for closed fracture (principal); E11.9 Type 2 diabetes mellitus without complications; W06.XXXA Fall from bed, initial encounter; Y93.89 Activity, other specified
CPT/HCPCS: 29130; 29405; 73080; 73130; 99282

== ENCOUNTER 2024-11-30 18:05 | Emergency (ER) | payer MEDICARE, OTHER, SELFPAY ==
[2024-11-30 18:06] VITALS: BP 161/58; PULSE 72; RESP 16; TEMP 36.3; O2SAT 96; BMI 27.7
[2024-11-30 18:24] VITALS: BMI 28.5
--- NOTE | 2024-11-30 18:48 | CT_ITS ---
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 One or more dose reduction techniques were used (e.g., Automated exposure control, adjustment of the mA and/or kV according to patient size, use of iterative reconstruction technique. RADIATION DOSE SUMMARY: CTDlvol: 44.99 mGy DLP: 812.98 mGycm COMPARISON: CT head 04/26/2024. FINDINGS: Brain: Encephalomalacia in the right parietal lobe. Diffuse hypodensities in the white matter which are nonspecific but most likely due to chronic small-vessel ischemia. No acute intracranial hemorrhage. No mass-effect or midline shift. The orbits and craniocervical junction are within normal limits. Atherosclerotic calcifications of the carotid siphons. CSF Spaces: Unremarkable. Sinuses/Mastoids: Clear. Bones: No acute bony abnormalities. Status post right parietal craniotomy. CT/Brain/Head without Contrast IMPRESSION: No acute intracranial hemorrhage. No mass-effect or midline shift. Encephalomalacia in the right parietal lobe from prior intervention. MRI with contrast can provide better rule out of tumor recurrence. Reading Location: [id number]
--- NOTE | 2024-11-30 18:57 | EX.ED.DYSGE1 ---
HPI History of Present Illness Chief Complaint: Weakness Informant: patient and family Onset/Context/Timing Onset: Days Context: Gradual Onset Timing: Continuous Current Severity: Moderate Maximum Severity: Moderate Narrative Narrative: 73-year-old female history of glioblastoma of the resection along with chemo and radiation therapy. Then had recurrence of the glioblastoma. Complaining of left sided weakness. States she was told by her oncologist that there was nothing else they can do for her glioblastoma and she was given 3 to 6 months to live. She has had multiple recent falls. Prior similar symptoms: Yes Recent Illness/Hospitalization: No [facility] Medical History Brain tumor Tendinosis of right shoulder Primary osteoarthritis, right shoulder Right shoulder tendonitis Type 2 diabetes mellitus Home Medications ?Medication ?Instructions ?Recorded ?Last Taken ?Type levothyroxine 137 mcg tablet 137 mcg PO DAILY 04/30/22 Unknown History multivitamin 1 tab PO DAILY 04/30/22 Unknown History Held on 04/27/24. Instructions: not taking solifenacin 10 mg tablet 10 mg PO DAILY 04/30/22 Unknown History vitamins A,C,Q-pfzm-ywflaj 2,148 2 tab PO DAILY 04/30/22 Unknown History mcg-113 mg-45 mg-17.4 mg tablet (PreserVision AREDS) acetaminophen 650 mg mg PO 10/26/24 Unknown History tablet,extended release escitalopram oxalate 10 mg tablet 10 mg PO QDAY 10/26/24 Unknown History levetiracetam 500 mg tablet 500 mg PO BID 10/26/24 Unknown History losartan 100 mg tablet 100 mg PO QDAY 10/26/24 Unknown History metformin 500 mg tablet 500 mg PO BID 10/26/24 Unknown History ondansetron 8 mg disintegrating 4 mg PO Q8 PRN nausea 10/26/24 Unknown History tablet potassium chloride 20 mEq/15 mL meq PO 10/26/24 Unknown History oral liquid Allergy/AdvReac Type Severity Reaction Status Date / Time bee venom protein (honey Allergy Swelling Verified 11/02/24 10:29 bee) (bee stings) codeine Allergy Nausea Verified 11/02/24 10:29 Tetanus Vaccines and Toxoid Allergy Swelling Verified 11/02/24 10:29 latex AdvReac Rashes Verified 11/02/24 10:29 Family History Father CHF (congestive heart failure) Surgical History History of knee surgery Social History housing: house Smoking Status: Never smoker ROS ROS ED ROS Narrative Denies recent illness. Constitutional Constitutional ED: Denies chills or fever(s) Eyes Eyes: Denies blurry vision ENT ENT ED: Denies ear pain Cardiovascular Cardiovascular: Denies chest pain Respiratory/Chest Respiratory/Chest: Denies cough or dyspnea Gastrointestinal Gastrointestinal: Reports nausea; Denies abdominal pain Genitourinary Genitourinary ED: Denies dysuria or hematuria Musculoskeletal Musculoskeletal: Denies arthralgias Neurologic Neurologic: Denies headache(s) Psychiatric Psychiatric: Denies anxiety Endocrine Endocrinology: Denies cold intolerance Hematologic/Lymphatic Hematologic/Lymphatic: Reports none Allergic/Immunologic Allergic/Immunologic ED: Denies mouth swelling or tongue swelling EXAM Physical Exam Narrative Exam Narrative: Centimeter female sitting upright in bed. Vital signs stable afebrile. H EENT exam pupils round react light. No facial droop. Normal speech. No trauma to her head or face. Neck nontender no lymphadenopathy. Back nontender. Lungs clear to auscultation bilaterally. Heart regular rhythm at about 70 no murmur. Chest wall ribs nontender. Abdomen soft nontender. Moving all 4 extremities. She is weak on the left upper and left lower extremity and ataxic to both. Right arm and leg has good strength and dexterity. Neurologically she has again the left-sided mild weakness and more so ataxic the left arm and leg. Const Vital Signs: 11/30/24 18:06 11/30/24 18:24 11/30/24 20:00 Temperature 97.4 F L Temperature Source Temporal Pulse Rate 72 69 Respiratory Rate 16 16 Respiratory Pattern Normal Blood Pressure 161/58 H 168/68 H Blood Pressure Mean 92 101 Pulse Ox 96 94 Oxygen Delivery Method Room Air Room Air 11/30/24 20:53 Temperature Temperature Source Pulse Rate 68 Respiratory Rate 16 Respiratory Pattern Blood Pressure 160/70 H Blood Pressure Mean 100 Pulse Ox 95 Oxygen Delivery Method Room Air Positive well nourished and well developed; Negative for cachectic, contractures or unkempt General Appearance ED: well developed and NAD; Negative for unkempt, cachectic, contractures, cyanotic, diaphoretic or pallor Nutritional Appearance: Negative for cachectic HEENT Reports moist mucous membranes Negative for trauma or tenderness Eyes PERRL and EOMs intact bilaterally Neck no lymphadenopathy, supple and no JVD Chest Wall inspection of chest normal and palpation of chest normal Resp normal respiratory effort and clear to auscultation bilaterally Cardio regular rate, regular rhythm, S1 normal heart sound, S2 normal heart sound and no murmurs GI normal to inspection, nondistended, normoactive bowel sounds, non-tender, non-distended and no masses Auscultation: normoactive bowel sounds Palpation: soft Back/Spine no CVA tenderness Extremity Negative for normal to inspection Extremity Narrative: Decreased dexterity left arm and leg. Slightly decreased strength. General Extremety ED: Negative for edema or tenderness General Extremity: Negative for edema Neuro oriented x3, CN's II-XII intact bilaterally and no sensory deficits noted Neuro Narrative: Slight weakness left arm and leg loss of dexterity left arm and leg. 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 Was given 3 to 6 months to live. Her physicians have told her they have nothing else to offer her. Presents with multiple falls and ataxia of her left arm and leg. Clinically I suspect this is from her glioblastoma possible swelling of her brain. CAT scan and labs of the done. Repeat exam around 9 PM no change. We discussed her CAT scan test results. Patient know she has terminal recurrence of glioblastoma. She knows she is no more than 6 months to live most likely. She is currently at [facility]. They have palliative care and hospice now involved. She and family members are comfortable with her being discharged to home. They understand and admissions really no significant benefit at this time. She has been on steroids in the past considerably did not do any good. Given that and there is no significant edema on the CAT scan I do not think that we will try a steroid course at this time. History & Record Review Discussion w/independent historian: Patient Lab Data Attestation: I reviewed the patient's lab results. Lab results narrative: CBC unremarkable. White count of 5. H&H 14 and 40. Platelets 153. Electrolytes show gap 12. Normal BUN and creatinine of 13.87. Glucose 196. CAT scan chronic changes. Labs: Laboratory Results - last 24 hr 11/30/24 19:18 WBC 5.4 RBC 4.20 Hgb 14.3 Hct 40.1 MCV 95.5 MCH 34.0 H MCHC 35.7 RDW Std Deviation 43.9 RDW Coeff of Edin 12.5 Plt Count 153 MPV 9.0 Immature Gran % (Auto) 0.200 Neut % (Auto) 63.2 Lymph % (Auto) 21.3 Atlantic % (Auto) 11.2 H Eos % (Auto) 3.4 Baso % (Auto) 0.7 Absolute Neuts (auto) 3.4 Absolute Lymphs (auto) 1.14 Nucleated RBC % 0 Sodium 138 Potassium 4.1 Chloride 103 Carbon Dioxide 22.8 Anion Gap 12 BUN 13 Creatinine 0.87 Estim Creat Clear Calc 61.55 Est GFR (MDRD) Non-Af 70 BUN/Creatinine Ratio 14.5 Glucose 196 H Calcium 9.4 Radiography Diagnostic Testing: Clinical Impression(s) from Imaging Studies Brain CT 11/30/24 18:48 IMPRESSION: No acute intracranial hemorrhage. No mass-effect or midline shift. Encephalomalacia in the right parietal lobe from prior intervention. MRI with contrast can provide better rule out of tumor recurrence. Reading Location: [facility] Discharge Plan Triage Chief Complaint: Weakness ED Provider: Ronak Sarmiento Dx/Rx/DC Orders Clinical Impression: Acute left-sided weakness, Glioblastoma, Falls Prescriptions: No Action acetaminophen 650 mg tablet extended release PO escitalopram oxalate 10 mg tablet 10 mg PO QDAY levetiracetam 500 mg tablet 500 mg PO BID losartan 100 mg tablet 100 mg PO QDAY metformin 500 mg tablet 500 mg PO BID potassium chloride 20 mEq/15 mL liquid PO ondansetron 8 mg tablet,disintegrating 4 mg PO Q8 PRN (Reason: nausea) multivitamin Tablet 1 tab PO DAILY levothyroxine 137 mcg Tablet 137 mcg PO DAILY solifenacin 10 mg Tablet 10 mg PO DAILY PreserVision AREDS 2,148 mcg-113 mg-45 mg-17.4mg tablet 2 tab PO DAILY Patient Comments: twice a day Primary Care Provider: Az Ennis Referrals: Az Ennis DO [Primary Care Provider, Medical] - As Needed Activity Restrictions/Additional Instructions: Your increasing weakness on your left side is most likely from the glioblastoma. Your labs look good. Nothing else to do at this time. Print Language: Nepali Disposition Disposition: Home, Self Care
--- OUTSIDE RECORDS SUMMARY | 2024-11-30 19:24 | XMS RPT_ITS | CCD ---
Author Organization [facility] CliniSyky Care Team Providers Care 4 H Youth Development Specialist Name Role Phone Dr. Will Lim Chi Primary Care Provider Dr. Will Lim Chi Referring Provider MD Az Franco Attending Provider Dr. Marcellus Bailon Attending Provider Dr. Tyrone Isabel Attending Provider [phone] Will Lim Chi Primary Care Provider Dr. Will Lim Chi Referring Provider MD Az Franco Attending Provider Dr. Marcellus Bailon Attending Provider RAPHAEL COON, DR DEAL Primary Care Physician Amina Johansen Unavailable Mei Lim MD, Dr. Will Adams Primary Care Provider [phone] Dr. Will Lim MD, Chi Attending Provider Raphael COON, Dr. Will Adams Referring Provider Trisha COON, Dr. Soto Attending Provider Dr. Charles Rico MD Emergency Provider Clint COON, Dr. Jennings Attending Provider Den Jaramillo MD, Dr. Jennings Referring Provider Den Lim MD, Dr. Will Adams Primary Care Provider [phone] Raphael COON, Dr. Will Adams Attending Provider Raphael COON, Dr. Will Adams Referring Provider Unavailable Primary Care Provider CLINTON Floyd Referring Unavailable SUFFCLINTON KENNEY Referring Unavailable Raphael COON, Dr. Will Adams Primary Care Provider [phone] Dr. Az Ennis MD Attending Provider Unavail able RAPHAEL COON, DR DEAL Primary Care Unavailable CLINTON GILBERT MD Attending Unavailable RAPHAEL COON, DR DEAL Primary Care Unavailable LISA COON, DR ANDRADE Attending Unavailable RAPHAEL COON, DR DEAL Primary Care Unavailable LISA COON, DR ANDRADE Attending Unavailable AKILA COON FACP, AGUSTINA [place] Admitting Unavail able RAPHAEL COON, DR DEAL Primary Care Unavailable CATRINA SPAULDING, DR REYNOLDS Attending Unavailable RAPHAEL COON, DR DEAL Primary Care Unavailable CLINTON GILBERT MD Attending Unavailable RAPHAEL COON, DR DEAL Primary Care Unavailable CLINTON GILBERT MD Attending Unavailable Cristal COON, Dr. Lyons Emergency Provider Unavailab mariana Ennis DO, Dr. Bernardo Primary Care Provider [phone] Dr. zA Ennis DO Referring Provider Dr. Turner Zavala DO Attending Provider AZ ENNIS DO Primary Care Physician Cristal COON, Dr. Lyons Attending Provider Unavailab mariana Isabel MD, Dr. Hansen Attending Provider [phone] Raphael, Will Chi Primary Care Unavailable Gudla OLS, Michaela Attending Unavailable Raphael, Will Chi Primary Care Unavailable Gudla OLS, Michaela Attending Unavailable Gudla OLS, Michaela Referring Unavailable Raphael, Will Chi Primary Care Unavailable Gudla OLS, Michaela Referring Unavailable Carmena SONI, Michaela Attending Unavailable Az Ennis Referring Unavailable Az Ennis Primary Care Unavailable Turner Zavala Attending Unavailable Az Ennis Referring Unavailable Raymon, Az Primary Care Unavailable Turner Zavala Attending Unavailable Az Ennis Primary Care Unavailable Tyrone Isabel Attending Unavailable Raphael, Will Chi Attending Unavailable [...] Unavailable Raphael, Will Chi Primary Care Unavailable Ennis, Az Primary Care Unavailable Wang Bee Attending Unavailable Raphael, Will Chi Referring Unavailable Raphael, Will Chi Primary Care Unavailable Raphael, Will Chi Attending Unavailable Raphael, Will Chi Attending Unavailable Raphael, Will Chi Primary Care Unavailable Nenis OLS Az Attending Unavailable Raphael, Will Chi Primary Care Unavailable Raphael, Will Chi Primary Care Unavailable Raphael, Will Chi Attending Unavailable Raphael, Will Chi Referring Unavailable Raphael, Will Chi Primary Care Unavailable Gudla OLS Michaela Attending Unavailable Raphael, Will Chi Primary Care Unavailable Gudla OLS Michaela Attending Unavailable Raphael, Will Chi Primary Care Unavailable Gudla OLS Michaela Referring Unavailable Gudla OLS Michaela Attending Unavailable Raphael, Will Chi Primary Care Unavailable Gudla OLS Michaela Attending Unavailable Raphael, Will Chi Primary Care Unavailable Charles Rico Attending Unavailable Raphael, Will Chi Primary Care Unavailable Raphael, Will Chi Attending Unavailable Raphael, Will Chi Referring Unavailable Raphael, Will Chi Primary Care Unavailable Gudla Michaela SHAFER Attending Unavailable RAPHAEL , DR DEAL Primary Care Unavailable CLINTON GILBERT MD Attending Unavailable RAPHAEL COON, DR DEAL Primary Care Unavailable LISA COON, DR ANDRADE Attending Unavailable RAPHAEL COON, DR DEAL Primary Care Unavailable LISA COON, DR ANDRADE Attending Unavailable ENNIS DO, AZ E Primary Care Unavailable LISA COON, DR ANDRADE Attending Unavailable LISA COON, DR ANDRADE Attending Unavailable ENNIS DO, AZ E Primary Care Unavailable DR SAY LIM MD Primary Care Unavailable LISA COON, DR ANDRADE Attending Unavailable ENNIS DO, AZ E Primary Care Unavailable CLINTON GILBERT MD Attending Unavailable RAPHAEL COON, DR DEAL Primary Care Unavailable LISA COON, DR ANDRADE Attending Unavailable ENNIS DO, AZ E Primary Care Unavailable LISA COON, DR ANDRADE Attending Unavailable ENNIS DO, AZ E Primary Care Unavailable LISA COON, DR ANDRADE Attending Unavailable DR SAY LIM MD Primary Care Unavailable LISA COON, DR ANDRADE Attending Unavailable AZ ENNIS DO Primary Care Unavailable LISA COON, DR ANDRADE Attending Unavailable RAPHAEL COON, DR DEAL Primary Care Unavailable ROSEMARIE TINEO MD Attending Unavail able RAPHAEL COON, DR DEAL Primary Care Unavailable LISA COON, DR ANDRADE Attending Unavailable HOSPITALIST, KIMBERLYN Consulting Unavailable RAPHAEL COON, DR DEAL Primary Care Unavailable GARETT COON, ROSEMARIE Attending Unavail able GARETT COON, ROSEMARIE Admitting Unavail maryjane OVIEDO MD, SILVIA Consulting Unavailable GARETT COON, ROSEMARIE Consulting Unavail able LÁZARO FRANCISCO MD Consulting Unavailable CATRINA SPAULDING, DR REYNOLDS Consulting Unavailable CHRISTIAN GARCIA MD Consulting Unavailable AZ ENNIS DO Primary Care Unavailable LISA COON, DR ANDRADE Attending Unavailable RAPHAEL COON, DR DEAL Primary Care Unavailable LISA COON, DR ANDRADE Attending Unavailable Allergies Allergy Classification Reported Allergen(s) Allergy Type Date of Onset Reaction(s) Facility (20 sources) Codeine; Translations: [codeine] Drug Allergy 3 Unknown (qualifier value) [facility] (20 sources) bee venom protein (honey bee) Allergy to substance 3 [facility] (20 sources) Tetanus Vaccines and Toxoid Allergy to substance 3 [facility] (19 sources) Bee/Wasp/Ant venom Allergy to substance Unknown (qualifier value) [facility] (20 sources) Latex; Translations: [latex] Drug allergy 5 Unknown (qualifier value) [facility] (19 sources) Tetanus immune globulin; Translations: [tetanus immune globulin] Drug Allergy Unknown (qualifier value) [facility] (1 source) Codeine Drug Allergy 5 [facility] (1 source) Tetanus Vaccines and Toxoid Drug allergy (disorder) 5 [facility] (1 source) bee venom protein (honey bee) Drug allergy (disorder) 5 [facility] Medications Current Medications Medication Drug Class(es) Dates Sig (Normalized) Sig (Original) 8 hr acetaminophen 650 mg extended release oral tablet (20 sources) Start: 10-26-2024 Acetaminophen 650 mg tablet extended release Active mg PO October 26, 2024 12:00am Start: 02-03-2024 Tylenol 325 mg oral capsule Dose : 650 mg =, Oral, q4h, PRN Pain, scale 1-3, 0 Refill(s) Start Date: 02/03/24 Status: Ordered Medication Dispense Status: Completed Total Allowed Fills: 1 Fills Dispensed: 0 ascorbic acid 113 mg / beta carotene 7160 mg / cuprous oxide 0.4 mg / dl-alpha tocopheryl acetate 100 unt / zinc oxide 17.4 mg oral tablet (20 sources) Vitamin C Start: 04-30-2022 Vitamins A,C,G-Mmzm-Iegcxf (Preservision Areds) 2,148 mcg-113 mg-45 mg-17.4mg tablet Active 2 {tbl} PO DAILY April 30, 2022 1:00am Centrum [facility]'s oral tablet (11 sources) Start: 07-18-2024 take 1 tablet by mouth once daily Centrum [facility]'s oral tablet Dose = 1 tab(s), Oral, qDay, 0 Refill(s) Start Date: 07/18/24 Status: Ordered Medication Dispense Status: Completed Total Allowed Fills: 1 Fills Dispensed: 0 Start: 07-18-2024 take 1 tablet by beverly th once daily Centrum Women's oral tablet Dose [...] number: 1 escitalopram 10 mg oral tablet (15 sources) Serotonin Reuptake Inhibitor Start: 05-23-2024 take 1 dose by mouth once daily escitalopram Dose : 10 mg =, Oral, qDay, 0 Refill(s) Start Date: 05/23/24 Status: Ordered Medication Dispense Status: Completed Total Allowed Fills: 1 Fills Dispensed: 0 Geritol Complete oral tablet (2 sources) Start: 05-23-2024 take 1 tablet by mouth once daily Geritol Complete oral tablet Dose = 1 tab(s), Oral, Daily, # 90 tab(s), 0 Refill(s) Start Date: 05/23/24 Status: Ordered Quantity: 90.0 Unit: tab(s) Repeat number: 1 Geritol oral tablet (1 source) Start: 11-20-2024 take 1 tablet by mouth twice daily Geritol oral tablet Dose = 1 tab(s), Oral, BID, 0 Refill(s) Start Date: 11/20/24 Status: Ordered Medication Dispense Status: Completed Total Allowed Fills: 1 Fills Dispensed: 0 Glucagon (2 sources) Antihypoglycemic Agent Start: 03-22-2024 [...] number: 1 levETIRAcetam 500 mg oral tablet (20 sources) Start: 02-03-2024 levETIRAcetam 500 mg oral tablet Dose : 500 mg = 1 tab(s), Oral, q12h, 0 Refill(s) Start Date: 02/03/24 Status: Ordered Medication Dispense Status: Completed Total Allowed Fills: 1 Fills Dispensed: 0 levothyroxine sodium 0.112 mg oral tablet (20 sources) l-Thyroxine Start: 01-31-2024 levothyroxine 112 mcg (0.112 mg) oral tablet Dose : 112 mcg = 1 tab(s), Oral, qDayAC, 0 Refill(s) Start Date: 03/22/24 Status: Ordered Medication Dispense Status: Completed Total Allowed Fills: 1 Fills Dispensed: 0 Start: 04-30-2022 take 1 tablet by beverly th once daily Levothyroxine 137 mcg Tablet Active 137 ug PO DAILY April 30, 2022 1:00am losartan potassium 100 mg oral tablet (20 sources) Angiotensin 2 Receptor Scott Start: 01-25-2024 losartan 100 mg oral tablet Dose : 100 mg = 1 tab(s), Oral, Daily, # 100 tab(s), 0 Refill(s) Start Date: 01/25/24 Status: Ordered Medication Dispense Status: Completed Quantity: 100.0 Unit: tab(s) Total Allowed Fills: 1 Fills Dispensed: 0 Start: 04-30-2022 End: 10-26-2024 take 1 tablet by mouth once daily Losartan 50 mg tablet Discontinued 50 mg PO DAILY April 30, 2022 1:00am October 26, 2024 3:15pm metFORMIN hydrochloride 500 mg oral tablet (2 sources) Biguanide Start: 10-26-2024 take 1 tablet by mouth twice daily Metformin 500 mg tablet Active 500 mg PO TWICE A DAY October 26, 2024 12:00am Milk of Magnesia (2 sources) Start: 03-22-2024 [...] Status: Ordered Repeat number: 1 Multivitamin preparation (19 sources) Start: 10-11-2024 take 1 tablet by mouth once daily Multivitamin Dose = 1 tab(s), Oral, Daily, 0 Refill(s) Start Date: 10/11/24 Status: Ordered Medication Dispense Status: Completed Total Allowed Fills: 1 Fills Dispensed: 0 Start: 04-30-2022 take 1 tablet by beverly th once daily Multivitamin Active 1 TABLET PO DAILY April 30, 2022 1:00am Start: 04-30-2022 take 1 tablet by beverly th once daily Multivitamin Active 1 TABLET PO DAILY April 30, 2022 12:00am Multivitamin Tablet (7 sources) Start: 04-30-2022 Multivitamin Tablet Active 1 {tbl} PO DAILY April 30, 2022 1:00am On Hold: not taking ondansetron 8 mg disintegrating oral tablet (18 sources) Serotonin-3 Receptor Antagonist Start: 10-26-2024 take 4 mg by mouth every eight hours as needed for nausea Ondansetron 8 mg tablet,disintegrat ing Active 4 mg PO EVERY 8 HOURS as needed for nausea October 26, 2024 12:00am Start: 04-05-2024 ondansetron 4 mg oral tablet Dose : 4 mg = 1 tab(s), Oral, q6h, # 30 tab(s), 3 Refill(s), Pharmacy: [facility] #[id number], 167.6, cm, 04/05/24 15:27:00 EST, Height, kg, 04/05/24 15:27:00 EST, Dosing Weight Start Date: 04/05/24 Status: Ordered Medication Dispense Status: Completed Quantity: 30.0 Unit: tab(s) Total Allowed Fills: 4 Fills Dispensed: 0 Start: 03-06-2024 ondansetron 4 mg oral tablet Dose : 4 mg = 1 tab(s), Oral, q6h, # 30 tab(s), 1 Refill(s), Pharmacy: [facility], 167.4, cm, 03/02/24 10:12:00 EST, Height, [...] Date: 02/03/24 Status: Ordered Repeat number: 1 Potassium Chloride (15 sources) Start: 10-26-2024 Potassium Chloride 20 mEq/15 mL liquid Active meq PO October 26, 2024 12:00am Start: 10-11-2024 Potassium Chlo ride (Uqb-Pype-Jew M20) 20 mEq oral tablet, extended release Dose : 20 mEq = 1 tab(s), Oral, BID, # 180 tab(s), 0 Refill(s) Start Date: 10/11/24 Status: Ordered Medication Dispense Status: Completed Quantity: 180.0 Unit: tab(s) Total Allowed Fills: 1 Fills Dispensed: 0 Start: 06-20-2024 take 1 dose by mouth twice daily KCL 20mEq/15mL (10%) ORAL liquid Dose : 20 mEq = 15 mL, Oral, BID, 0 Refill(s) Start Date: 06/20/24 Status: Ordered Medication Dispense Status: Completed Total Allowed Fills: 1 Fills Dispensed: 0 Start: 05-23-2024 take 20 doses by beverly twice daily potassium chloride Dose : 20 mEq =, Oral, BID, 0 Refill(s) Start Date: 05/23/24 Status: Ordered Repeat number: 1 PreserVision AREDS (13 sources) Start: 05-23-2024 take 1 capsule by mouth twice daily PreserVision AREDS 1 cap, Oral, BID, 0 Refill(s) Start Date: 05/23/24 Status: Ordered Medication Dispense Status: Completed Total Allowed Fills: 1 Fills Dispensed: 0 Start: 05-23-2024 take 1 capsule by mo [facility] [place] twice daily PreserVision AREDS 1 cap, Oral, [...] 0 Refill(s) Start Date: 01/25/24 Status: Ordered Medication Dispense Status: Completed Quantity: 30.0 Unit: tab(s) Total Allowed Fills: 1 Fills Dispensed: 0 temozolomide 5 mg oral capsule (20 sources) Alkylating Drug Start: 03-06-2024 End: 03-06-2025 temozolomide 5 mg oral capsule Dose : 5 mg = 1 cap(s), Oral, qHS, # 42 cap(s), 0 Refill(s), 03/06/25 2:38:00 PM EST, Pharmacy: [facility], 167.4, cm, 03/02/24 10:12:00 EST, Height, kg, 03/02/24 10:12:00 EST, Dosing Weight Start Date: 03/06/24 Stop Date: 03/06/25 Status: Ordered Medication Dispense Status: Completed Quantity: 42.0 Unit: cap(s) Total Allowed Fills: 1 Fills Dispensed: 0 Start: 03-06-2024 End: 03-06-2025 temozolomide 140 mg oral cap steve Dose : 140 mg = 1 cap(s), Oral, qHS, take during RT with 5mg cap, # 42 cap(s), 0 Refill(s), 03/06/25 2:40:00 PM EST, Pharmacy: [facility], 167.4, cm, 03/02/24 10:12:00 EST, Height, kg, 03/02/24 10:12:00 EST, Dosing Weight Start Date: 03/06/24 Stop Date: 03/06/25 Status: Ordered Medication Dispense Status: Completed Quantity: 42.0 Unit: cap(s) Total Allowed Fills: 1 Fills Dispensed: 0 Vitamin D3 (1 source) Start: 03-22-2024 Vitamin D3 qDa y, 0 Refill(s) Start Date: 03/22/24 Status: Ordered Repeat number: 1 Completed/Discontinued Medications Medication Drug Class(es) Dates Sig (Normalized) Sig (Original) 12 hr buPROPion hydrochloride 200 mg extended release oral tablet (8 sources) Aminoketone Start: 06-21-2023 End: 10-26-2024 take 1 tablet by mouth once daily Bupropion Hcl 200 mg tablet sustained-release 12 hr Discontinued 200 mg PO DAILY June 21, 2023 12:00am October 26, 2024 3:17pm cyclobenzaprine hydrochloride 10 mg oral tablet (20 sources) Muscle Relaxant Start: 04-30-2022 End: 02-01-2023 take 1 tablet by mouth twice daily as needed for muscle spasms Cyclobenzaprine 10 mg tablet Discontinued 10 mg PO TWICE A DAY as needed for muscle spasm 14 0 April 30, 2022 12:56pm February 01, 2023 [...] Status: Ordered gabapentin 100 mg oral capsule (12 sources) Anti-epileptic Agent Start: 04-04-2023 End: 01-25-2024 [...] bolus injection naproxen 500 mg oral tablet (20 sources) Nonsteroidal Anti-inflammatory Drug Start: 04-30-2022 End: 01-25-2024 take 1 tablet by mouth twice daily as needed for pain Naproxen (Naprosyn) 500 mg tablet Discontinued 500 mg PO TWICE A DAY as needed for pain 14 0 April 30, 2022 1:00am January 25, 2024 5:24am Semaglutide (15 sources) Start: 02-01-2023 End: 04-27-2024 Semaglutide (Ozempic) [...] Status: Ordered Repeat number: 1 Start: 04-30-2022 End: 10-26-2024 take 1 capsule by mouth once daily Venlafaxine 75 mg Capsule,Extended Release 24hr Discontinued 75 mg PO DAILY April 30, 2022 1:00am October 26, 2024 3:17pm Problems Active Problems Problem Classification Problem Date Documented Date Episodic/Chronic Cancer of brain and nervous system (20 sources) Malignant neoplasm of brain; Translations: [Malignant neoplasm of brain, unspecified] Onset: 01-28-2024 Chronic Diabetes mellitus with complications (2 sources) Hyperglycemia due to type 2 diabetes mellitus; Translations: [Type 2 diabetes mellitus with hyperglycemia] Onset: 06-04-2024 Chronic Diabetes mellitus without complication (20 sources) Diabetes mellitus; Translations: [Type 2 diabetes mellitus without complication] Onset: 02-04-2024 01-20-2024 Chronic Disorders of lipid metabolism (20 sources) Hyperlipidemia; Translations: [Hyperlipidemia, unspecified] Onset: 09-28-2024 01-20-2024 Chronic E Codes: Fall (4 sources) Fall; Translations: [Unspecified fall, initial encounter] 10-22-2024 Episodic Esophageal disorders (19 sources) Gastroesophageal reflux disease 01-20-2024 Chronic Essential hypertension (20 sources) Essential hypertension; Translations: [Essential (primary) hypertension] Onset: 02-04-2024 Chronic Fracture of upper limb (8 sources) Fracture of proximal phalanx of finger; Translations: [Displaced fracture of proximal phalanx of unspecified finger, initial encounter for closed fracture] Onset: 11-02-2024 10-22-2024 Episodic Genitourinary symptoms and ill-defined conditions (19 sources) Female stress incontinence 01-20-2024 Chronic Malaise and fatigue (1 source) Asthenia; Translations: [Weakness] Onset: 02-04-2024 Episodic Mood disorders (1 source) Major depressive disorder; Translations: [Major depressive disorder, single episode, unspecified] Chronic Neoplasms of unspecified nature or uncertain behavior (9 sources) Neoplasm of brain; Translations: [Neoplasm of unspecified behavior of brain] Onset: 01-19-2024 02-02-2024 Chronic Nutritional deficiencies (1 source) Vitamin D deficiency, unspecified; Translations: [Vitamin D deficiency, unspecified] Onset: 09-28-2024 Chronic Osteoarthritis (20 sources) Osteoarthritis of joint of right shoulder region; Translations: [Primary osteoarthritis, right shoulder] 04-04-2023 Chronic Other acquired deformities (14 sources) Spondylolisthesis; Translations: [Spondylolisthesis, cervical region] 02-15-2023 Episodic Other acquired deformities (19 sources) Spondylolisthesis, cervical region; Translations: [Acquired spondylolisthesis] 02-15-2023 Episodic Other aftercare (15 sources) Surgical follow-up 03-22-2024 Episodic Other connective tissue disease (12 sources) Tendinosis of right shoulder; Translations: [Other specified disorders of tendon, right shoulder] 04-04-2023 Episodic Other connective tissue disease (5 sources) Other specified disorders of tendon, right shoulder; Translations: [Unspecified disorder of synovium, tendon, and bursa] 04-04-2023 Episodic Other ear and sense organ disorders (19 sources) Hearing loss 01-20-2024 Chronic Other injuries and conditions due to external causes (7 sources) Closed injury of head; Translations: [Unspecified injury of head, initial encounter] 02-02-2024 Episodic Other nervous system disorders (14 sources) Cervical myelopathy; Translations: [Disease of spinal cord, unspecified] 02-15-2023 Chronic Other nervous system disorders (12 sources) Disease of spinal cord, unspecified; Translations: [Cervical spondylosis with myelopathy] 02-15-2023 Chronic Other nervous system disorders (2 sources) Disorder of brain; Translations: [Disorder of brain, unspecified] Onset: 02-04-2024 Chronic Other nervous system disorders (20 sources) Abnormal gait; Translations: [Other abnormalities of gait and mobility] Episodic Other non-traumatic joint disorders (15 sources) Pain in right shoulder; Translations: [Right shoulder pain] 02-01-2023 Episodic Paralysis (8 sources) Hemiplegia of left nondominant side; Translations: [Hemiplegia, unspecified affecting left nondominant side] Chronic Residual codes; unclassified (1 source) Past history of procedure; Translations: [Other specified postprocedural states] Episodic Residual codes; unclassified (1 source) H/O: radiation exposure; Translations: [Personal history of irradiation] Episodic Residual codes; unclassified (1 source) Other specified postprocedural states; Translations: [Other specified postprocedural states] Onset: 10-17-2024 Episodic Residual codes; unclassified (1 source) Personal history of irradiation; Translations: [Personal history of irradiation] Onset: 10-17-2024 Episodic Spondylosis; intervertebral disc disorders; other back problems (20 sources) Neck pain; Translations: [Cervicalgia] 02-15-2023 Episodic Sprains and strains (20 sources) Strain of back muscle; Translations: [Strain of muscle and tendon of back wall of thorax, initial encounter] 04-30-2022 Episodic Superficial injury; contusion (7 sources) Abrasion of scalp; Translations: [Abrasion of scalp, initial encounter] 02-02-2024 Episodic Thyroid disorders (20 sources) Hypothyroidism; Translations: [Hypothyroidism, unspecified] Onset: 05-31-2024 Chronic Unclassified (19 sources) Brain neoplasm tissue sample (specimen) 01-20-2024 Past or Other Problems Problem Classification Problem Date Documented Date Episodic/Chronic Fluid and electrolyte disorders (1 source) Dehydration; Translations: [Dehydration] Onset: 05-10-2024 Episodic Other connective tissue disease (1 source) Other [...] in left elbow] Onset: 02-07-2024 Episodic Other screening for suspected conditions (not mental disorders or infectious disease) (1 source) Encounter for screening mammogram for malignant neoplasm of breast; Translations: [Encounter for screening mammogram for malignant neoplasm of breast] Onset: 01-23-2024 Episodic Results Test Name Value Interpretation Reference Range Facility .Auto Diffon 11-20-2024 Basophil, Absolute 0.0 10 3/mcL Normal 0.0-0.3 [facility] Comment on above: Performed By: #### A DIFF, GFR, CBC, BMP, ANEU #### [address] [address] Basophils/100 WBC (Bld) 0.9 % Normal 0.0-2.5 [facility] Comment on above: Performed By: #### A DIFF, GFR, CBC, BMP, ANEU #### [address] [address] Eosinophil, Absolute 0.2 10 3/mcL Normal 0.0-0.7 [facility] Comment on above: Performed By: #### A DIFF, GFR, CBC, BMP, ANEU #### [address] [address] Eosinophils/100 WBC (Bld) 3.2 % Normal 0.0-6.0 [facility] Comment on above: Performed By: #### A DIFF, GFR, CBC, BMP, ANEU #### [address] [address] Lymphocyte, Absolute 1.0 10 3/mcL Normal 0.9-4.3 [facility] Comment on above: Performed By: #### A DIFF, GFR, CBC, BMP, ANEU #### [address] [address] Lymphocytes/100 WBC (Bld) 19.5 % Low 20.0-40.0 [facility] Comment on above: Performed By: #### A DIFF, GFR, CBC, BMP, ANEU #### [address] [address] Monocyte, Absolute 0.5 10 3/mcL Normal 0.1-1.4 [facility] Comment on above: Performed By: #### A DIFF, GFR, CBC, BMP, ANEU #### [address] [address] Monocytes/100 WBC (Bld) 10.4 % Normal 2.0-13.0 [facility] Comment on above: Performed By: #### A DIFF, GFR, CBC, BMP, ANEU #### [address] [address] Neutrophils/100 WBC (Bld) 66.0 % Normal 50.0-75.0 [facility] Comment on above: Performed By: #### A DIFF, GFR, CBC, BMP, ANEU #### [address] [address] .GFRon 11-20-2024 Estimated Glomerular Filtration Rate 88 ml/min/1.73sqm Normal [facility] Comment on above: Result Comment: Stages [...] A DIFF, GFR, CBC, BMP, ANEU #### [place] [address] .NEUABSon 11-20-2024 Neutrophil, Absolute 3.3 10 3/mcL Normal 2.3-8.1 [facility] Comment on above: Performed By: #### A DIFF, GFR, CBC, BMP, ANEU #### [place] [address] CBCon 11-20-2024 Erythrocyte distribution width (RBC) [Ratio] 13.6 % Normal 11.5-15.5 [facility] Comment on above: Performed By: #### A DIFF, GFR, CBC, BMP, ANEU #### [place] [id number] Hematocrit (Bld) [Volume fraction] 43.1 % Normal 34.0-46.0 [facility] MAIN Comment on above: Performed By: #### A DIFF, GFR, CBC, BMP, ANEU #### [place] [address] Hgb 15.0 G/dL Normal 12.0-16.0 [facility] MAIN Comment on above: Performed By: #### A DIFF, GFR, CBC, BMP, ANEU #### [place] [phone] MCH (RBC) [Entitic mass] 33.4 pg High 27.0-33.0 [facility] MAIN Comment on above: Performed By: #### A DIFF, GFR, CBC, BMP, ANEU #### [place] [address] MCHC 34.8 G/dL Normal 32.0-36.0 [facility] MAIN Comment on above: Performed By: #### A DIFF, GFR, CBC, BMP, ANEU #### [place] [address] MCV (RBC) [Entitic vol] 96.1 fL Normal 80.0-99.0 [facility] MAIN Comment on above: Performed By: #### A DIFF, GFR, CBC, BMP, ANEU #### [place] [address] Platelet 162 10 3/mcL Normal 150-450 [facility] MAIN Comment on above: Performed By: #### A DIFF, GFR, CBC, BMP, ANEU #### [place] [address] Platelet mean volume (Bld) [Entitic vol] 6.9 fL Normal 6.6-10.5 [facility] MA[facility] Comment on above: Performed By: #### A DIFF, GFR, CBC, BMP, ANEU #### [place] [address] RBC 4.48 10 6/mcL Normal 4.10-5.30 [facility] Comment on above: Performed By: #### A DIFF, GFR, CBC, BMP, ANEU #### [place] [address] WBC 4.9 10 3/mcL Normal 4.5-10.8 [facility] MA[facility] Comment on above: Performed By: #### A DIFF, GFR, CBC, BMP, ANEU #### [place] [address] CMPon 11-20-2024 Albumin Level 3.8 G/dL Normal 3.2-4.8 [facility] MA[facility] Comment on above: Performed By: #### A DIFF, GFR, CBC, BMP, ANEU #### [address] [address] Albumin/Globulin [Mass ratio] 1.4 {ratio} Normal 0.9-1.6 [facility] MAIN Comment on above: Performed By: #### A DIFF, GFR, CBC, BMP, ANEU #### [address] [address] ALP [Catalytic activity/Vol] 121 U/L Normal 38-126 [facility] MA[facility] Comment on above: Performed By: #### A DIFF, GFR, CBC, BMP, ANEU #### [address] [address] ALT [Catalytic activity/Vol] 20 U/L Normal 10-49 [facility] MA[facility] Comment on above: Performed By: #### A DIFF, GFR, CBC, BMP, ANEU #### [address] [address] AST [Catalytic activity/Vol] 19 U/L Normal 8-34 [facility] MA[facility] Comment on above: Performed By: #### A DIFF, GFR, CBC, BMP, ANEU #### [address] [address] Bili Total 0.90 mg/dL Normal 0.20-1.20 [facility] MAIN Comment on above: Result Comment: Use of this assay is not recommended for patients undergoing treatment with eltrombopag due to the potential for falsely elevated results. Performed By: #### A DIFF, GFR, CBC, BMP, ANEU #### [address] [address] BUN/Creatinine Ratio 12.5 ratio Normal 10.0-22.0 [facility] MAIN Comment on above: Performed By: #### A DIFF, GFR, CBC, BMP, ANEU #### [address] [address] Calcium [Mass/Vol] 9.8 mg/dL Normal 8.7-10.4 [facility] MAIN Comment on above: Performed By: #### A DIFF, GFR, CBC, BMP, ANEU #### [address] [address] Chloride [Moles/Vol] 105 mmol/L Normal 98-110 [facility] MAIN Comment on above: Performed By: #### A DIFF, GFR, CBC, BMP, ANEU #### [address] [address] CO2 [Moles/Vol] 28 mmol/L Normal 22-32 [facility] MAIN Comment on above: Performed By: #### A DIFF, GFR, CBC, BMP, ANEU #### [address] [address] Creatinine [Mass/Vol] 0.72 mg/dL Normal 0.50-1.20 [facility] MAIN Comment on above: Result Comment: Test ing performed on Cyanogen analyzer using enzymatic creatinine methodology. Performed By: #### A DIFF, GFR, CBC, BMP, ANEU #### [place] [phone] Electrolyte Balance 10.0 mEq/L Normal 4.0-15.0 [facility] MAIN Comment on above: Performed By: #### A DIFF, GFR, CBC, BMP, ANEU #### [address] [address] Globulin 2.8 G/dL Normal 2.5-4.2 [facility] MAIN Comment on above: Performed By: #### A DIFF, GFR, CBC, BMP, ANEU #### [address] [address] Glucose [Mass/Vol] 103 mg/dL Normal 82-115 [facility] MAIN Comment on above: Performed By: #### A DIFF, GFR, CBC, BMP, ANEU #### [address] [address] Potassium [Moles/Vol] 4.3 mmol/L Normal 3.5-5.0 [facility] MAIN Comment on above: Performed By: #### A DIFF, GFR, CBC, BMP, ANEU #### [place] [phone] Sodium [Moles/Vol] 143 mmol/L Normal 136-145 [facility] MAIN Comment on above: Performed By: #### A DIFF, GFR, CBC, BMP, ANEU #### [facility] [address] [place] [address] Total Protein 6.6 G/dL Normal 5.7-8.2 [facility] MAIN Comment on above: Performed By: #### A DIFF, GFR, CBC, BMP, ANEU #### [facility] [address] [place] [address] Urea nitrogen [Mass/Vol] 9.0 mg/dL Normal 8.0-22.0 [facility] MAIN Comment on above: Performed By: #### A DIFF, GFR, CBC, BMP, ANEU #### [facility] [address] [place] [address] LABORATORYOrdered By: Kiley Anderson on 11-20-2024 Protein Urine Dipstick Negative (11/20/24 3:17 PM) [facility] Work Phone: LABORATORYOrdered By: SYSTEM SYSTEM on 11-20-2024 Albumin BCP dye [Mass/Vol] 3.8 G/dL Normal 3.2 - 4.8 G/dL ADM SS Albumin/Globulin [Mass ratio] 1.4 {ratio} Normal 0.9 - 1.6 ratio ADM SS ALP [Catalytic activity/Vol] 121 U/L Normal 38 - 126 U/L ADM SS ALT No additional P-5'-P [Catalytic activity/Vol] 20 U/L Normal 10 - 49 U/L ADM SS AST [Catalytic activity/Vol] 19 U/L Normal 8 - 34 U/L ADM SS Basophils (Bld) [#/Vol] 0.0 103/mcL Normal 0.0 - 0.3 10^3/mcL Workflow SS Basophils/100 WBC (Bld) 0.9 % Normal 0.0 - 2.5 % Workflow SS Bilirubin [Mass/Vol] 0.90 mg/dL Normal 0.20 - 1.20 mg/dL ADM SS Comment on above: Interpretive Data: U se of this assay is not recommended for patients undergoing treatment with eltrombopag due to the potential for falsely elevated results. Calcium [Mass/Vol] 9.8 mg/dL Normal 8.7 - 10. 4 mg/dL ADM SS Chloride [Moles/Vol] 105 mmol/L Normal 98 - 11 0 mEq/L ADM SS CO2 [Moles/Vol] 28 mmol/L Normal 22 - 32 mEq/L ADM SS Creatinine [Mass/Vol] 0.72 mg/dL Normal 0.50 - 1.20 mg/dL ADM SS Comment on above: Interpretive Data: T esting performed on ChemDA[employer] CH analyzer using enzymatic creatinine methodology. Electrolyte Balance 10.0 mEq/L Normal 4.0 - 15 .0 mEq/L ADM SS Eosinophils (Bld) [#/Vol] 0.2 103/mcL Normal 0.0 - 0.7 10^3/mcL Workflow SS Eosinophils/100 WBC (Bld) 3.2 % Normal 0.0 - 6.0 % Workflow SS Erythrocyte distribution width (RBC) [Ratio] 13.6 % Normal 11.5 - 15.5 % Workflow SS Estimated Glomerular Filtration Rate 88 ml/min/1.73sqm Invalid Interpretation Code ADM SS Comment [...] factor to calculate the eGFR results. Globulin 2.8 G/dL Normal 2.5 - 4.2 G/dL ADM SS Glucose [Mass/Vol] 103 mg/dL Normal 82 - 115 mg/dL ADM SS Hematocrit (Bld) [Volume fraction] 43.1 % Normal 34.0 - 46.0 % Workflow SS Hemoglobin (Bld) [Mass/Vol] 15.0 G/dL Normal 12.0 - 16.0 G/dL Workflow SS LDH Lactate to pyruvate reaction [Catalytic activity/Vol] 178 1 Normal 120 - 246 U/L ADM SS Lymphocytes (Bld) [#/Vol] 1.0 103/mcL Normal 0.9 - 4.3 10^3/mcL AH Workflow SS Lymphocytes/100 WBC (Bld) 19.5 % Low 20.0 - 40.0 % AH Workflow SS MCH (RBC) [Entitic mass] 33.4 pg High 27.0 - 33.0 pg AH Workflow SS MCHC 34.8 G/dL Normal 32.0 - 36.0 G/dL AH Workflow SS MCV (RBC) [Entitic vol] 96.1 fL Normal 80.0 - 99.0 fL AH Workflow SS Monocytes (Bld) [#/Vol] 0.5 103/mcL Normal 0.1 - 1.4 10^3/mcL AH Workflow SS Monocytes/100 WBC (Bld) 10.4 % Normal 2.0 - 13.0 % AH Workflow SS Neutrophils (Bld) [#/Vol] 3.3 103/mcL Normal 2.3 - 8.1 10^3/mcL AH Workflow SS Neutrophils/100 WBC (Bld) 66.0 % Normal 50.0 - 75.0 % AH Workflow SS Platelet mean volume (Bld) [Entitic vol] 6.9 fL Normal 6.6 - 10.5 fL AH Workflow SS Platelets (Bld) [#/Vol] 162 103/mcL Normal 150 - 450 10^3/mcL AH Workflow SS Potassium [Moles/Vol] 4.3 mmol/L Normal 3.5 - 5.0 mEq/L AH ADM SS Protein [Mass/Vol] 6.6 G/dL Normal 5.7 - 8.2 G/dL AH ADM SS RBC (Bld) [#/Vol] 4.48 106/mcL Normal 4.10 - 5.3 0 10^6/mcL AH Workflow SS Sodium [Moles/Vol] 143 mmol/L Normal 136 - 145 mEq/L AH ADM SS Urea nitrogen [Mass/Vol] 9.0 mg/dL Normal 8.0 - 22.0 mg/dL AH ADM SS Urea nitrogen/Creatinine [Mass ratio] 12.5 ratio Normal 10.0 - 22.0 ratio AH ADM SS WBC (Bld) [#/Vol] 4.9 103/mcL Normal 4.5 - 10.8 10^3/mcL AH Workflow SS LDHon 11-20-2024 LDH 178 U/L Normal 120-246 [facility] MAIN Comment on above: Performed By: #### A DIFF, GFR, CBC, BMP, ANEU #### [address] [address] .Auto Diffon 11-06-2024 Basophil, Absolute 0.0 10 3/mcL Normal 0.0-0.3 [facility] MAIN Comment on above: Performed By: #### G FR, CMP, CBC, LD, ADIFF, ANEU #### [address] [address] Basophils/100 WBC (Bld) 0.7 % Normal 0.0-2.5 [facility] MAIN Comment on above: Performed By: #### G FR, CMP, CBC, LD, ADIFF, ANEU #### [address] [address] Eosinophil, Absolute 0.1 10 3/mcL Normal 0.0-0.7 [facility] MAIN Comment on above: Performed By: #### G FR, CMP, CBC, LD, ADIFF, ANEU #### [address] [address] Eosinophils/100 WBC (Bld) 3.0 % Normal 0.0-6.0 [facility] MAIN Comment on above: Performed By: #### G FR, CMP, CBC, LD, ADIFF, ANEU #### [address] [address] Lymphocyte, Absolute 0.6 10 3/mcL Low 0.9-4.3 [facility] MAIN Comment on above: Performed By: #### G FR, CMP, CBC, LD, ADIFF, ANEU #### [address] [address] Lymphocytes/100 WBC (Bld) 13.6 % Low 20.0-40.0 [facility] MAIN Comment on above: Performed By: #### G FR, CMP, CBC, LD, ADIFF, ANEU #### [address] [address] Monocyte, Absolute 0.5 10 3/mcL Normal 0.1-1.4 [facility] MAIN Comment on above: Performed By: #### G FR, CMP, CBC, LD, ADIFF, ANEU #### [address] [address] Monocytes/100 WBC (Bld) 10.2 % Normal 2.0-13.0 [facility] MAIN Comment on above: Performed By: #### G FR, CMP, CBC, LD, ADIFF, ANEU #### [place] [address] Neutrophils/100 WBC (Bld) 72.5 % Normal 50.0-75.0 [facility] MAIN Comment on above: Performed By: #### G FR, CMP, CBC, LD, ADIFF, ANEU #### [address] [address] .GFRon 11-06-2024 Estimated Glomerular Filtration Rate 80 ml/min/1.73sqm Normal [facility] MAIN Comment on above: Result Comment: Stages [...] FR, CMP, CBC, LD, ADIFF, ANEU #### [place] [address] .NEUABSon 11-06-2024 Neutrophil, Absolute 3.4 10 3/mcL Normal 2.3-8.1 [facility] MAIN Comment on above: Performed By: #### G FR, CMP, CBC, LD, ADIFF, ANEU #### [place] [address] CBCon 11-06-2024 Erythrocyte distribution width (RBC) [Ratio] 13.2 % Normal 11.5-15.5 [facility] MAIN Comment on above: Performed By: #### G FR, CMP, CBC, LD, ADIFF, ANEU #### [facility] [address] [place], [place] [address] Hematocrit (Bld) [Volume fraction] 43.6 % Normal 34.0-46.0 [facility] MAIN Comment on above: Performed By: #### G FR, CMP, CBC, LD, ADIFF, ANEU #### [place] [address] Hgb 15.1 G/dL Normal 12.0-16.0 [facility] MAIN Comment on above: Performed By: #### G FR, CMP, CBC, LD, ADIFF, ANEU #### [place] [address] MCH (RBC) [Entitic mass] 33.5 pg High 27.0-33.0 [facility] MAIN Comment on above: Performed By: #### G FR, CMP, CBC, LD, ADIFF, ANEU #### [place] [address] MCHC 34.6 G/dL Normal 32.0-36.0 [facility] MAIN Comment on above: Performed By: #### G FR, CMP, CBC, LD, ADIFF, ANEU #### [place] [address] MCV (RBC) [Entitic vol] 97.0 fL Normal 80.0-99.0 [facility] MAIN Comment on above: Performed By: #### G FR, CMP, CBC, LD, ADIFF, ANEU #### [place] [address] Platelet 234 10 3/mcL Normal 150-450 [facility] MAIN Comment on above: Performed By: #### G FR, CMP, CBC, LD, ADIFF, ANEU #### [place] [address] Platelet mean volume (Bld) [Entitic vol] 6.9 fL Normal 6.6-10.5 [facility] MAIN Comment on above: Performed By: #### G FR, CMP, CBC, LD, ADIFF, ANEU #### [place] [phone] RBC 4.50 10 6/mcL Normal 4.10-5.30 [facility] MAIN Comment on above: Performed By: #### G FR, CMP, CBC, LD, ADIFF, ANEU #### [address] [address] WBC 4.7 10 3/mcL Normal 4.5-10.8 [facility] MAIN Comment on above: Performed By: #### G FR, CMP, CBC, LD, ADIFF, ANEU #### [address] [address] CMPon 11-06-2024 Albumin Level 4.0 G/dL Normal 3.2-4.8 [facility] MAIN Comment on above: Performed By: #### G FR, CMP, CBC, LD, ADIFF, ANEU #### [place] [phone] Albumin/Globulin [Mass ratio] 1.4 {ratio} Normal 0.9-1.6 [facility] MAIN Comment on above: Performed By: #### G FR, CMP, CBC, LD, ADIFF, ANEU #### [place] [address] ALP [Catalytic activity/Vol] 123 U/L Normal 38-126 [facility] MAIN Comment on above: Performed By: #### G FR, CMP, CBC, LD, ADIFF, ANEU #### [place] [address] ALT [Catalytic activity/Vol] 24 U/L Normal 10-49 [facility] MAIN Comment on above: Performed By: #### G FR, CMP, CBC, LD, ADIFF, ANEU #### [place] [phone] AST [Catalytic activity/Vol] 29 U/L Normal 8-34 [facility] MAIN Comment on above: Performed By: #### G FR, CMP, CBC, LD, ADIFF, ANEU #### [place] [phone] Bili Total 1.00 mg/dL Normal 0.20-1.20 [facility] MAIN Comment on above: Result Comment: Use of this assay is not recommended for patients undergoing treatment with eltrombopag due to the potential for falsely elevated results. Performed By: #### G FR, CMP, CBC, LD, ADIFF, ANEU #### [place] [phone] BUN/Creatinine Ratio 10.3 ratio Normal 10.0-22.0 [facility] MAIN Comment on above: Performed By: #### G FR, CMP, CBC, LD, ADIFF, ANEU #### [address] [address] Calcium [Mass/Vol] 10.0 mg/dL Normal 8.7-10.4 [facility] MAIN Comment on above: Performed By: #### G FR, CMP, CBC, LD, ADIFF, ANEU #### [place] [phone] Chloride [Moles/Vol] 104 mmol/L Normal 98-110 [facility] MAIN Comment on above: Performed By: #### G FR, CMP, CBC, LD, ADIFF, ANEU #### [place] [phone] CO2 [Moles/Vol] 27 mmol/L Normal 22-32 [facility] MAIN Comment on above: Performed By: #### G FR, CMP, CBC, LD, ADIFF, ANEU #### [place] [phone] Creatinine [Mass/Vol] 0.78 mg/dL Normal 0.50-1.20 [facility] MAIN Comment on above: Result Comment: Test ing performed on Cyanogen analyzer using enzymatic creatinine methodology. Performed By: #### G FR, CMP, CBC, LD, ADIFF, ANEU #### [place] [phone] Electrolyte Balance 12.0 mEq/L Normal 4.0-15.0 [facility] MAIN Comment on above: Performed By: #### G FR, CMP, CBC, LD, ADIFF, ANEU #### [address] [address] Globulin 2.8 G/dL Normal 2.5-4.2 [facility] MAIN Comment on above: Performed By: #### G FR, CMP, CBC, LD, ADIFF, ANEU #### [place] [phone] Glucose [Mass/Vol] 128 mg/dL High 82-115 [facility] MAIN Comment on above: Performed By: #### G FR, CMP, CBC, LD, ADIFF, ANEU #### [place] [phone] Potassium [Moles/Vol] 4.5 mmol/L Normal 3.5-5.0 [facility] MAIN Comment on above: Result Comment: Spec imen slightly hemolyzed. Performed By: #### G FR, CMP, CBC, LD, ADIFF, ANEU #### [place] [phone] Sodium [Moles/Vol] 143 mmol/L Normal 136-145 [facility] MAIN Comment on above: Performed By: #### G FR, CMP, CBC, LD, ADIFF, ANEU #### [place] [address] Total Protein 6.8 G/dL Normal 5.7-8.2 [facility] MAIN Comment on above: Performed By: #### G FR, CMP, CBC, LD, ADIFF, ANEU #### [place] [address] Urea nitrogen [Mass/Vol] 8.0 mg/dL Normal 8.0-22.0 [facility] MAIN Comment on above: Performed By: #### G FR, CMP, CBC, LD, ADIFF, ANEU #### [place] [address] HEPACon 11-06-2024 Hep A IgM Ab Non-Reactive Normal Non-Reactive [facility] MAIN Comment on above: Performed By: #### G FR, CMP, CBC, LD, ADIFF, ANEU #### [place] [phone] Hep A IgM Ab Int See Interp Normal [facility] MAIN Comment on above: Result Comment: Clinical Interpretation: No serological evidence of a current Hepatitis A infection. Performed By: #### G FR, CMP, CBC, LD, ADIFF, ANEU #### [place] [phone] Hep B Core IgM Ab Non-Reactive Normal Non-Reactive [facility] MAIN Comment on above: Performed By: #### G FR, CMP, CBC, LD, ADIFF, ANEU #### [place] [phone] Hep B Core IgM Ab Int See [facility] MAIN Comment on above: Result Comment: Clinical Interpretation: Samples with a value < 0.80 Index are considered nonreactive (negative) for IgM antibodies to hepatitis B core antigen. Performed By: #### G FR, CMP, CBC, LD, ADIFF, ANEU #### [place] [address] Hep B Surf Ag Non-Reactive Normal Non-Reactive [facility] MAIN Comment on above: Performed By: #### G FR, CMP, CBC, LD, ADIFF, ANEU #### [place] [address] Hep C Ab Non-Reactive Normal Non-Reactive [facility] MAIN Comment on above: Performed By: #### G FR, CMP, CBC, LD, ADIFF, ANEU #### [place] [address] Hep C Ab Int See [facility] MAIN Comment on above: Result Comment: Clinical Interpretation: Nonreactive: Samples with a value < 0.80 are considered nonreactive (negative) for antibodies to HCV. A negative test result does not exclude the possibility of exposure to or infection with HCV. HCV antibodies may be undetectable in some stages of the infection and in some clinical conditions. Performed By: #### G FR, CMP, CBC, LD, ADIFF, ANEU #### [place] [address] LABORATORYOrdered By: Kev amador on 11-06-2024 Protein Urine Dipstick Negative (11/06/24 12:01 PM) [facility] Work Phone: LABORATORYOrdered By: SYSTEM SYSTEM on 11-06-2024 Albumin BCP dye [Mass/Vol] 4.0 G/dL Normal 3.2 - 4.8 G/dL AH ADM SS Albumin/Globulin [Mass ratio] 1.4 {ratio} Normal 0.9 - 1.6 ratio AH ADM SS ALP [Catalytic activity/Vol] 123 U/L Normal 38 - 126 U/L AH ADM SS ALT No additional P-5'-P [Catalytic activity/Vol] 24 U/L Normal 10 - 49 U/L AH ADM SS AST [Catalytic activity/Vol] 29 U/L Normal 8 - 34 U/L AH ADM SS Basophils (Bld) [#/Vol] 0.0 103/mcL Normal 0.0 - 0.3 10^3/mcL AH Workflow SS Basophils/100 WBC (Bld) 0.7 % Normal 0.0 - 2.5 % Workflow SS Bilirubin [Mass/Vol] 1.00 mg/dL Normal 0.20 - 1.20 mg/dL ADM SS Comment on above: Interpretive Data: U se of this assay is not recommended for patients undergoing treatment with eltrombopag due to the potential for falsely elevated results. Calcium [Mass/Vol] 10.0 mg/dL Normal 8.7 - 10. 4 mg/dL AH ADM SS Chloride [Moles/Vol] 104 mmol/L Normal 98 - 11 0 mEq/L ADM SS CO2 [Moles/Vol] 27 mmol/L Normal 22 - 32 mEq/L ADM SS Creatinine [Mass/Vol] 0.78 mg/dL Normal 0.50 - 1.20 mg/dL ADM SS Comment on above: Interpretive Data: T esting performed on Cyanogen analyzer using enzymatic creatinine methodology. Electrolyte Balance 12.0 mEq/L Normal 4.0 - 15 .0 mEq/L ADM SS Eosinophils (Bld) [#/Vol] 0.1 103/mcL Normal 0.0 - 0.7 10^3/mcL Workflow SS Eosinophils/100 WBC (Bld) 3.0 % Normal 0.0 - 6.0 % Workflow SS Erythrocyte distribution width (RBC) [Ratio] 13.2 % Normal 11.5 - 15.5 % Workflow SS Estimated Glomerular Filtration Rate 80 ml/min/1.73sqm Invalid Interpretation Code ADM SS Comment [...] factor to calculate the eGFR results. Globulin 2.8 G/dL Normal 2.5 - 4.2 G/dL AH ADM SS Glucose [Mass/Vol] 128 mg/dL High 82 - 115 mg/dL AH ADM SS Hematocrit (Bld) [Volume fraction] 43.6 % Normal 34.0 - 46.0 % AH Workflow SS Hemoglobin (Bld) [Mass/Vol] 15.1 G/dL Normal 12.0 - 16.0 G/dL AH Workflow SS LDH Lactate to pyruvate reaction [Catalytic activity/Vol] 269 1 High 120 - 246 U/L AH ADM SS Lymphocytes (Bld) [#/Vol] 0.6 103/mcL Low 0.9 - 4.3 10^3/mcL AH Workflow SS Lymphocytes/100 WBC (Bld) 13.6 % Low 20.0 - 40.0 % AH Workflow SS MCH (RBC) [Entitic mass] 33.5 pg High 27.0 - 33.0 pg AH Workflow SS MCHC 34.6 G/dL Normal 32.0 - 36.0 G/dL AH Workflow SS MCV (RBC) [Entitic vol] 97.0 fL Normal 80.0 - 99.0 fL AH Workflow SS Monocytes (Bld) [#/Vol] 0.5 103/mcL Normal 0.1 - 1.4 10^3/mcL AH Workflow SS Monocytes/100 WBC (Bld) 10.2 % Normal 2.0 - 13.0 % AH Workflow SS Neutrophils (Bld) [#/Vol] 3.4 103/mcL Normal 2.3 - 8.1 10^3/mcL AH Workflow SS Neutrophils/100 WBC (Bld) 72.5 % Normal 50.0 - 75.0 % AH Workflow SS Platelet mean volume (Bld) [Entitic vol] 6.9 fL Normal 6.6 - 10.5 fL AH Workflow SS Platelets (Bld) [#/Vol] 234 103/mcL Normal 150 - 450 10^3/mcL AH Workflow SS Potassium [Moles/Vol] 4.5 mmol/L Normal 3.5 - 5.0 mEq/L AH ADM SS Comment on above: Result Comment: Spec imen slightly hemolyzed. Protein [Mass/Vol] 6.8 G/dL Normal 5.7 - 8.2 G/dL AH ADM SS RBC (Bld) [#/Vol] 4.50 106/mcL Normal 4.10 - 5.3 0 10^6/mcL AH Workflow SS Sodium [Moles/Vol] 143 mmol/L Normal 136 - 145 mEq/L AH ADM SS Urea nitrogen [Mass/Vol] 8.0 mg/dL Normal 8.0 - 22.0 mg/dL AH ADM SS Urea nitrogen/Creatinine [Mass ratio] 10.3 ratio Normal 10.0 - 22.0 ratio AH ADM SS WBC (Bld) [#/Vol] 4.7 103/mcL Normal 4.5 - 10.8 10^3/mcL AH Workflow SS LABORATORYOrdered By: Miya Carrasco on 11-06-2024 HAV IgM IA Ql Non-Reactive (11/06/24 10:49 AM) Normal Non-Reactive AH ADM SS HAV IgM IA Ql See Interp 6 *NA* (11/06/24 10:49 AM) Invalid Interpretation Code [employer] S Comment on above: Result Comment: Clinical Interpretation: No serological evidence of a current Hepatitis A infection. HBV core IgM IA Ql Non-Reactive (11/06/24 10:49 AM) Normal Non-Reactive AH ADM SS HBV core IgM IA Ql See Interp 5 *NA* (11/06/24 10:49 AM) Invalid Interpretation Code [employer] S Comment on above: Result Comment: Clinical Interpretation: Samples with a value < 0.80 Index are considered nonreactive (negative) for IgM antibodies to hepatitis B core antigen. HBV surface Ag IA Ql Non-Reactive (11/06/24 10:49 AM) Normal Non-Reactive AH ADM SS HCV Ab IA Ql Non-Reactive (11/06/24 10:49 AM) Normal Non-Reactive AH ADM SS HCV Ab IA Ql See Interp 7 *NA* (11/06/24 10:49 AM) Invalid Interpretation Code [employer] S Comment on above: Result Comment: Clinical Interpretation: Nonreactive: Samples with a value < 0.80 are considered nonreactive (negative) for antibodies to HCV. A negative test result does not exclude the possibility of exposure to or infection with HCV. HCV antibodies may be undetectable in some stages of the infection and in some clinical conditions. LDHon 11-06-2024 LDH 269 U/L High 120-246 [facility] MAIN Comment on above: Performed By: #### G FR, CMP, CBC, LD, ADIFF, ANEU #### [facility] [address] [place] [address] Hand Min 3 Viewson Hand Min 3 Views [facility] Imaging Services [address] [place] [address] Hand Min 3 Views MR#: [id number] Acct: [id number] Name: TERENCE VALDIVIA Rep #: [id number] : 1950 F 73 From: Marcos Casas MD PCP: Dr. Az Ennis DO Status: DEP AMB Study: Hand Min 3 Views Date of Exam: 11/02/24 Exam# [id number] Ordering Dr: Turner Zavala DO PROCEDURE: HAND MIN 3 VIEWS 11/02/2024 REASON FOR EXAM: FX FOLLOW UP TECHNIQUE: Procedure Code: JANINE Modality: DX Procedure: HAND MIN 3 VIEWS Laterality: COMPARISON: 10/22/2024. FINDINGS: Similar alignment of a nondisplaced oblique fracture of the 5th proximal phalanx metadiaphysis. Degenerative changes of the hand and wrist. RAD/Hand Min 3 Views IMPRESSION: Similar fracture alignment. Reading Location: [address] CC: Dr. Turner Zavala DO; Dr. Az Ennis DO [employer] Aides Teacher: Signed Normal [facility] Orthopedic Visit Reporton Orthopedic Visit Report [facility] [facility] [address] [place] [address] OFFICE VISIT Date of Service: 11/02/24 MR#: [id number] Acct: [id number] Name: TERENCE VALDIVIA Rep #: [id number] : 1950 Provider: Dr. Turner cruz DO Age/Sex: 73/F [place] [facility] [place] Status: Signed Intake Vital Signs 10/24/24 13:22 Height 5 ft 6 in Intake Visit Reasons: LEFT HAND Allergies bee venom protein (honey bee) (bee stings) Allergy (Verified 11/02/24 10:29) Swelling codeine Allergy (Verified 11/02/24 10:29) Nausea Tetanus Vaccines and Toxoid Allergy (Verified 11/02/24 10:29) Swelling latex Adverse Reaction (Verified 11/02/24 10:29) Rashes Medications ???Medication ???Instructions ???Recorded ???Confirmed ???Type levothyroxine 137 mcg tablet 137 mcg PO DAILY 04/30/22 11/02/24 History multivitamin 1 tab PO DAILY 04/30/22 11/02/24 H istory Held on 04/27/24. Instructions: not taking solifenacin 10 mg tablet 10 mg PO DAILY 04/30/22 11/02/24 H istory vitamins A,C,A-quko-puxrxw 2,148 2 tab PO DAILY 04/30/22 11/02/24 H istory mcg-113 mg-45 mg-17.4 mg tablet (PreserVision AREDS) acetaminophen 650 mg mg PO 10/26/24 11/02/24 History tablet,extended release escitalopram oxalate 10 mg tablet 10 mg PO QDAY 10/26/24 11/02/24 H istory levetiracetam 500 mg tablet 500 mg PO BID 10/26/24 11/02/24 Hi story losartan 100 mg tablet 100 mg PO QDAY 10/26/24 11/02/24 H istory metformin 500 mg tablet 500 mg PO BID 10/26/24 11/02/24 Hi story ondansetron 8 mg disintegrating 4 mg PO Q8 PRN nausea 10/26/2407/22 History tablet potassium chloride 20 mEq/15 mL meq PO 10/26/24 11/02/24 History oral liquid Have you fallen in the past year?: Yes PFSH Medical History Brain tumor Tendinosis of right shoulder Primary osteoarthritis, right shoulder Right shoulder tendonitis Type 2 diabetes mellitus Surgical History History of knee surgery Family History Father CHF (congestive heart failure) Social History housing: house Smoking Status: Never smoker HPI LEFT HAND Details: This documentation accurately reflects the service provided and the decisions made by me, Dr. Turner Zavala, DO 11/02/24 0841. Part of today???s visit was documented by Nadia GALLEGOS, acting as scribe. TERENCE VALDIVIA is a 73 year old F here today for 1 week f/u left hand fracture. She states that she does not have any pain when at rest but if she accidentally bumps it then she does have pain. She has cara taking the brace off for hygiene. At times she does take Tylenol for pain. Denies numbness, tingling or other associated symptoms. 10/26/2024 visit:73 year old F here today for left hand ER follow-up. Patient had a fall on Tuesday evening and was seen in [facility] ER. She was trying to catch herself from falling and she got her hand. She describes the pain at the base of the 4th and 5th digits below the knuckles. Patient is RHD. She denies any prior injuries to the left hand in the past. She denies any numbness/tingling in the hand or fingers. Plan:Patient is here today for left hand ER follow-up. I reviewed left hand x-rays that were taken in the ER on 10/22/2024 and explained she does have a fracture through the proximal phalanx of the fifth digit. 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 Recommend we place her in a more supportive brace that she is able to remove for showers and hand washing. I will place her in an exos ulnar gutter brace and would like to see her back in 1 week with repeat x-ray out of splint. Follow up in 1 week for repeat radiographs or sooner if pain, swelling, numbness or associated symptoms, or concerns develop. All questions answered. Patient in agreement of plan. Ortho Exam General General: Yes no acute distress Neurologic: Yes alert and Yes oriented x3 Psychologic: Yes reasonable and appropriate Right Wrist/Hand Skin/Wound: Yes Swelling and Yes Ecchymosis Left Wrist/Hand Skin/Wound: Yes CDI, Yes Swelling, Yes Ecchymosis, Yes nail intact, Yes capillary refill normal and No erythema WRIST: flexor and extensor tendons are intact swelling and ecchymosis in the palmar side of the digits No open wounds brisk capillary refill Intact sensation to light touch Supplemental Info 11/02/2024 x-ray left hand: Relatively unchanged 10/22/2024 x-ray of the left hand: nondisplaced minimally angulated fracture through the proximal phalanx of the fifth digit it is extra-articular of note she does have arthritis of her first CMC joint Coding Level of Care Code Off vis,est,level 3 (more content not included)... Normal [facility] Orthopedic Visit Reporton Orthopedic Visit Report [facility] [address] [place] [address] [address] [place] [address] OFFICE VISIT Date of Service: 10/26/24 MR#: [id number] Acct: [id number] Name: TERENCE VALDIVIA Rep #: [id number] : 1950 Provider: Dr. Turner cruz DO Age/Sex: 73/F [place] [facility] Status: Signed Intake Vital Signs 10/22/24 15:50 10/24/24 13:22 Height 5 ft 6 in 5 ft 6 in Intake Visit Reasons: LEFT HAND Chief Complaint: Left Hand ER Follow-Up Is patient in pain?: Yes Pain scale (1-10): 4 Allergies bee venom protein (honey bee) (bee stings) Allergy (Verified 10/26/24 09:56) Swelling codeine Allergy (Verified 10/26/24 09:56) Nausea Tetanus Vaccines and Toxoid Allergy (Verified 10/26/24 09:56) Swelling latex Adverse Reaction (Verified 10/26/24 09:56) Rashes Have you fallen in the past year?: Yes [facility] Medical History Brain tumor Tendinosis of right shoulder Primary osteoarthritis, right shoulder Right shoulder tendonitis Type 2 diabetes mellitus Surgical History History of knee surgery Family History Father CHF (congestive heart failure) Social History housing: house Smoking Status: Never smoker HPI LEFT HAND Details: This documentation accurately reflects the service provided and the decisions made by me, Dr. Turner Zavala, DO 10/26/24 0751. Part of today???s visit was documented by [employer], acting as scribe. TERENCE VALDIVIA is a 73 year old F here today for left hand ER follow-up. Patient had a fall on Tuesday evening and was seen in [facility] ER. She was trying to catch herself from falling and she got her hand. She describes the pain at the base of the 4th and 5th digits below the knuckles. Patient is RHD. She denies any prior injuries to the left hand in the past. She denies any numbness/tingling in the hand or fingers. Ortho Exam General General: Yes no acute distress and Yes well groomed Neurologic: Yes alert and Yes oriented x3 Psychologic: Yes reasonable and appropriate Right Wrist/Hand Skin/Wound: Yes Swelling and Yes Ecchymosis Left Wrist/Hand Skin/Wound: Yes CDI, Yes Swelling, Yes Ecchymosis, Yes nail intact, Yes capillary refill normal and No erythema WRIST: flexor and extensor tendons are intact swelling and ecchymosis in the palmar side of the digits No open wounds brisk capillary refill Intact sensation to light touch Supplemental Info 10/22/2024 x-ray of the left hand: nondisplaced minimally angulated fracture through the proximal phalanx of the fifth digit it is extra-articular of note she does have arthritis of her first CMC joint Coding Level of Care Code Off vis,est,level 3 Diagnoses Closed nondisplaced fracture of proximal phalanx of left little finger, initial encounter S62.647A Encounter type: initial encounter Finger: little finger Fracture alignment: nondisplaced Fracture type: closed Laterality: left Assessment and Plan Assessment and Plan (1) Proximal phalanx fracture of finger: Status: Acute Qualifiers: Encounter type: initial encounter Finger: little finger Fracture alignment: nondisplaced Fracture type: closed Laterality: left Qualified Code(s): S62.647A - Nondisplaced fracture of proximal phalanx of left little finger, initial encounter for closed fracture Plan Patient is here today for left hand ER follow-up. I reviewed left hand x-rays that were taken in the ER on 10/22/2024 and explained she does have a fracture through the proximal phalanx of the fifth digit. 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 Recommend we place her in a more supportive brace that she is able to remove for showers and hand washing. I will place her in an exos ulnar gutter brace and would like to see her back in 1 week with repeat x-ray out of splint. Follow up in 1 week for repeat radiographs or sooner if pain, swelling, numbness or associated symptoms, or concerns develop. All questions answered. Patient in agreement of plan. Clinical Quality Measures Falls Risk Screening/Assistive Devices Have you fallen in the past year?: Yes 10/26/24 1035 Date Turner Rubio Signature: Date (if applicable) CC: Normal [facility] Elbow min 3 Viewson 10-23-19 Elbow min 3 Views [facility] Imaging Services [address] [place], [place] [address] Elbow min 3 Views MR#: [id number] Acct: [id number] Name: TERENCE VALDIVIA Rep #: [id number] : 1950 F 73 From: Marcos Casas MD PCP: Dr. Will Lim MD Status: PRE ER Study: Elbow min 3 Views Date of Exam: 10/22/24 Exam# [id number] Ordering Dr: Evin Samson. PROCEDURE: ELBOW MIN 3 VIEWS 10/22/2024 REASON FOR EXAM: FALL TECHNIQUE: ELBOW MIN 3 VIEWS Laterality: FINDINGS: No evidence of acute fracture or dislocation. Degenerative changes of the elbow. No elbow joint effusion. RAD/Elbow min 3 Views IMPRESSION: No acute osseous abnormalities. Reading Location: [id number] CC: Dr. Will Lim MD; ED PHYSICIAN PROVIDER [employer] Aides Teacher: Signed Normal [facility] Emergency Department Summary on 10-22-2024 Emergency Department Summary [facility] Medical Records Department [address] [place] [address] Emergency Department Summary 10/22/24 MR#: [id number] Acct: [id number] Name: TERENCE VALDIVIA Rep #: [id number] : 1950 73 From: Wang Bee MD PCP: Dr. Az Ennis, DO Status:REG ER Location: ED HPI HPI - Fall History of Present Illness Chief Complaint: Fall Narrative Narrative: Patient is a 73-year-old female presenting to the emergency department for a fall with left hand pain. Patient has a past medical history of a brain tumor and states that she always has issues with her left side particularly her leg giving out. States that she went to transfer from her bed to her wheelchair when she lost her balance due to her left leg giving out, falling onto her left hand. She denies hitting her head or any other injuries. Denies neck or back pain. She is not on OAC. [facility] Medical History Brain tumor Tendinosis of right shoulder Primary osteoarthritis, right shoulder Right shoulder tendonitis Type 2 diabetes mellitus Home Medications ???Medication ???Instructions ???Recorded ???Last Taken ???Type levothyroxine 137 mcg tablet 137 mcg PO DAILY 04/30/22 Unknown History losartan 50 mg tablet 50 mg PO DAILY 04/30/22 Unknown Hi story multivitamin 1 tab PO DAILY 04/30/22 Unknown Hi story Held on 04/27/24. Instructions: not taking solifenacin 10 mg tablet 10 mg PO DAILY 04/30/22 Unknown Hi story venlafaxine 75 mg capsule,extended 75 mg PO DAILY 04/30/22 Unknown History release 24 hr vitamins A,C,Q-cvbm-kpqncs 2,148 2 tab PO DAILY 04/30/22 Unknown Hi story mcg-113 mg-45 mg-17.4 mg tablet (PreserVision AREDS) bupropion HCl 200 mg tablet,12 hr 200 mg PO DAILY 06/21/23 Unknown History sustained-release Allergy/AdvReac Type Severity Reaction Status Date / Time bee venom protein (honey Allergy Swelling Verified 10/22/24 15:50 bee) (bee stings) codeine Allergy Nausea Verified 10/22/24 15:50 Tetanus Vaccines and Toxoid Allergy Swelling Verified 10/22/24 15:50 Family History Father CHF (congestive heart failure) Surgical History History of knee surgery Social History housing: house Smoking Status: Never smoker ROS ROS ED ROS Narrative see HPI EXAM Physical Exam Narrative Exam Narrative: Vital signs: Reviewed General: Alert and orientedx3. No acute distress HEENT: Head is normocephalic and atraumatic, sinuses nontender, pupils equal round and reactive. Nares are patent. Oropharynx and throat exams normal. Neck: Supple without lymphadenopathy nontender. No midline cervical spinal tenderness palpation. No step-offs or deformities. Cardiovascular: Regular rate and rhythm, no murmurs. No rubs or gallops. Normal S1 and S2 Respiratory: Clear to auscultation bilaterally. No wheezes, rales, rhonchi Abdominal: Soft and nontender. Normal bowel sounds. No guarding or rebound. Nonsurgical abdomen Extremities: There is tenderness to palpation at the base of the left fifth finger with ecchymosis and mild swelling. There is no tenderness to palpation of the metacarpals, forearm, elbow, humerus or shoulder. Sensation and motor intact in radial, median and ulnar distributions. Compartments are soft. Radial pulse intact bilaterally. There is a superficial abrasion to the proximal forearm below the elbow. Skin: No rash or redness. Neurological: Cranial nerves II through XII are grossly intact. Normal strength and sensation. Normal cerebellar function The rest of the physical exam is unremarkable Const Vital Signs: 10/22/24 15:50 10/22/24 16:49 Temperature 97.5 F L Temperature Source Temporal Pulse Rate 99 Respiratory Rate 15 Respiratory Effort Normal Non-Labored Blood Pressure 114/76 Blood Pressure Mean 88 Pulse Ox 98 Oxygen Delivery Method Room Air Room Air MDM MDM MDM Narrative Medical decision making narrative: Patient is a 73-year-old female presenting to the emergency department after a mechanical fall. Patient was seen and examined. Resting in bed comfortably in no acute distress. Imaging was ordered prior to my evaluation of the patient which included a hand and elbow x-ray of the left side. X-ray was reviewed by myself and shows a fracture of the fifth proximal phalanx. Radiology read with an acute nondisplaced oblique fracture of the fifth proximal phalanx metadiaphysis. Elbow x-ray with no acute osseous abnormalities. Patient remembers the fall and it was purely mechanical, no indication for additional imaging or labs. She did not hit her head, no OAC, no neck or (more content not included)... Normal [facility] Hand Min 3 Viewson Hand Min 3 Views [facility] Imaging Services [address] [place], [place] [id number] Hand Min 3 Views MR#: [id number] Acct: [id number] Name: TERENCE VALDIVIA Rep #: [id number] : 1950 F 73 From: Marcos Casas MD PCP: Dr. Will Lim MD Status: PRE ER Study: Hand Min 3 Views Date of Exam: 10/22/24 Exam# [id number] Ordering Dr: Provider,Ed P. PROCEDURE: HAND MIN 3 VIEWS 10/22/2024 REASON FOR EXAM: FALL TECHNIQUE: HAND MIN 3 VIEWS FINDINGS: Acute, nondisplaced oblique fracture of the 5th proximal phalanx metadiaphysis. Degenerative changes of the hand and wrist. RAD/Hand Min 3 Views IMPRESSION: Acute, nondisplaced oblique fracture of the 5th proximal phalanx metadiaphysis. Reading Location: [id number] CC: Dr. Will Lim MD; ED PHYSICIAN PROVIDER [employer] Aides Teacher: Signed Normal [facility] MRI BRAIN W/ + W/O CONTRASTo n 10-14-2024 MRI BRAIN W/ + W/O CONTRAST ORIGINAL EXAMINATION: MRI OF THE BRAIN WITHOUT AND WITH CONTRAST 10/12/2024 12:20 pm TECHNIQUE: Multiplanar multisequence MRI of the head/brain was performed without and with the administration of intravenous contrast. COMPARISON: MRI brain 05/14/2024. HISTORY: ORDERING SYSTEM PROVIDED HISTORY: Reason for Exam: Follow up GBM FINDINGS: Status post left craniotomy. No restricted diffusion. There has been interval enlargement of the posterior frontal/parietal component of tumor with AP extent of about 4.9 cm versus 3.5 cm on the previous examination. Enhancing lesion extends through the posterior corpus callosum to the left of midline. Increased surrounding edema is present. No shift of the midline structures. No extra-axial fluid collection. No posterior fossa lesion. The orbits and skull base appear unremarkable. IMPRESSION: Increased interval progression with extension through the corpus callosum to the left of midline noted. Interpreted by: Iraj Genao Preliminary Report By: Iraj Genao Electronically signed By Iraj Genao Dictated Date: 10/14/2024 7:55:02 AM Prelim Date: 10/14/2024 7:59:45 AM Sign Date: 10/14/2024 7:59:45 AM Ordering Provider: CLINTON GILBERT Normal [facility] .Auto Diffon 10-08-2024 Basophil, Absolute 0.0 10 3/mcL Normal 0.0-0.3 [facility] Comment on above: Performed By: #### C MP, ANEU, CBC, GFR, ADIFF #### [address] [address] Basophils/100 WBC (Bld) 1.0 % Normal 0.0-2.5 [facility] Comment on above: Performed By: #### C MP, ANEU, CBC, GFR, ADIFF #### [place] [id number] [place], [place] [address] Eosinophil, Absolute 0.2 10 3/mcL Normal 0.0-0.7 [facility] Comment on above: Performed By: #### C MP, ANEU, CBC, GFR, ADIFF #### [address] [address] Eosinophils/100 WBC (Bld) 3.6 % Normal 0.0-6.0 [facility] Comment on above: Performed By: #### C MP, ANEU, CBC, GFR, ADIFF #### [address] [address] Lymphocyte, Absolute 0.7 10 3/mcL Low 0.9-4.3 [facility] Comment on above: Performed By: #### C MP, ANEU, CBC, GFR, ADIFF #### [address] [address] Lymphocytes/100 WBC (Bld) 15.0 % Low 20.0-40.0 [facility] Comment on above: Performed By: #### C MP, ANEU, CBC, GFR, ADIFF #### [address] [address] Monocyte, Absolute 0.5 10 3/mcL Normal 0.1-1.4 [facility] Comment on above: Performed By: #### C MP, ANEU, CBC, GFR, ADIFF #### [address] [address] Monocytes/100 WBC (Bld) 11.9 % Normal 2.0-13.0 [facility] Comment on above: Performed By: #### C MP, ANEU, CBC, GFR, ADIFF #### [address] [address] Neutrophils/100 WBC (Bld) 68.5 % Normal 50.0-75.0 [facility] Comment on above: Performed By: #### C MP, ANEU, CBC, GFR, ADIFF #### [address] [address] .GFRon 10-08-2024 Estimated Glomerular Filtration Rate 72 ml/min/1.73sqm Normal [facility] Comment on above: Result Comment: Stages of [...] calculate the eGFR results. Performed By: #### C MP, ANEU, CBC, GFR, ADIFF #### [address] [address] .NEUABSon 10-08-2024 Neutrophil, Absolute 3.1 10 3/mcL Normal 2.3-8.1 [facility] Comment on above: Performed By: #### C MP, ANEU, CBC, GFR, ADIFF #### [place] [id number] CBCon 10-08-2024 Erythrocyte distribution width (RBC) [Ratio] 13.5 % Normal 11.5-15.5 [facility] Comment on above: Performed By: #### C MP, ANEU, CBC, GFR, ADIFF #### [place] [address] Hematocrit (Bld) [Volume fraction] 41.7 % Normal 34.0-46.0 [facility] Comment on above: Performed By: #### C MP, ANEU, CBC, GFR, ADIFF #### [place] [address] Hgb 14.7 G/dL Normal 12.0-16.0 [facility] Comment on above: Performed By: #### C MP, ANEU, CBC, GFR, ADIFF #### [place] [address] MCH (RBC) [Entitic mass] 34.0 pg High 27.0-33.0 [facility] Comment on above: Performed By: #### C MP, ANEU, CBC, GFR, ADIFF #### [place] [address] MCHC 35.1 G/dL Normal 32.0-36.0 [facility] Comment on above: Performed By: #### C MP, ANEU, CBC, GFR, ADIFF #### [place] [address] [place], [place] [address] MCV (RBC) [Entitic vol] 96.8 fL Normal 80.0-99.0 [facility] Comment on above: Performed By: #### C MP, ANEU, CBC, GFR, ADIFF #### [address] [address] Platelet 237 10 3/mcL Normal 150-450 [facility] Comment on above: Performed By: #### C MP, ANEU, CBC, GFR, ADIFF #### [address] [address] Platelet mean volume (Bld) [Entitic vol] 7.1 fL Normal 6.6-10.5 [facility] Comment on above: Performed By: #### C MP, ANEU, CBC, GFR, ADIFF #### [address] [address] RBC 4.31 10 6/mcL Normal 4.10-5.30 [facility] Comment on above: Performed By: #### C MP, ANEU, CBC, GFR, ADIFF #### [address] [address] WBC 4.5 10 3/mcL Normal 4.5-10.8 [facility] Comment on above: Performed By: #### C MP, ANEU, CBC, GFR, ADIFF #### [address] [address] CMPon 10-08-2024 Albumin Level 3.7 G/dL Normal 3.4-4.8 [facility] Comment on above: Performed By: #### C MP, ANEU, CBC, GFR, ADIFF #### [address] [address] Albumin/Globulin [Mass ratio] 1.1 {ratio} Normal 1.1-2.5 [facility] Comment on above: Performed By: #### C MP, ANEU, CBC, GFR, ADIFF #### [address] [address] ALP [Catalytic activity/Vol] 134 U/L Normal 40-135 [facility] Comment on above: Performed By: #### C MP, ANEU, CBC, GFR, ADIFF #### [address] [address] ALT [Catalytic activity/Vol] 35 U/L Normal 14-59 [facility] Comment on above: Performed By: #### C MP, ANEU, CBC, GFR, ADIFF #### [address] [address] AST [Catalytic activity/Vol] 19 U/L Normal 10-40 [facility] Comment on above: Performed By: #### C MP, ANEU, CBC, GFR, ADIFF #### [address] [address] Bili Total 0.8 mg/dL Normal 0.2-1.0 [facility] Comment on above: Result Comment: Use of this assay is not recommended for patients undergoing treatment with eltrombopag due to the potential for falsely elevated results. Performed By: #### C MP, ANEU, CBC, GFR, ADIFF #### [address] [address] BUN/Creatinine Ratio 13 ratio Normal 7-27 [facility] Comment on above: Performed By: #### C MP, ANEU, CBC, GFR, ADIFF #### [address] [address] Calcium [Mass/Vol] 9.9 mg/dL Normal 8.4-10.2 [facility] Comment on above: Performed By: #### C MP, ANEU, CBC, GFR, ADIFF #### [address] [address] Chloride [Moles/Vol] 104 mmol/L Normal 98-107 [facility] Comment on above: Performed By: #### C MP, ANEU, CBC, GFR, ADIFF #### [address] [address] CO2 [Moles/Vol] 30 mmol/L Normal 23-31 [facility] Comment on above: Performed By: #### C MP, ANEU, CBC, GFR, ADIFF #### [address] [address] Creatinine [Mass/Vol] 0.85 mg/dL Normal 0.51-0.95 [facility] Comment on above: Performed By: #### C MP, ANEU, CBC, GFR, ADIFF #### [address] [address] Electrolyte Balance 7.0 mEq/L Normal 4.0-15.0 [facility] Comment on above: Performed By: #### C MP, ANEU, CBC, GFR, ADIFF #### [address] [address] Globulin 3.4 G/dL Normal 2.7-4.4 [facility] Comment on above: Performed By: #### C MP, ANEU, CBC, GFR, ADIFF #### [place] [address] Glucose [Mass/Vol] 112 mg/dL High 83-110 [facility] Comment on above: Performed By: #### C MP, ANEU, CBC, GFR, ADIFF #### [address] [address] Potassium [Moles/Vol] 3.8 mmol/L Normal 3.5-5.1 [facility] Comment on above: Performed By: #### C MP, ANEU, CBC, GFR, ADIFF #### [address] [address] Sodium [Moles/Vol] 141 mmol/L Normal 136-145 [facility] Comment on above: Performed By: #### C MP, ANEU, CBC, GFR, ADIFF #### [address] [address] Total Protein 7.1 G/dL Normal 6.4-8.2 [facility] Comment on above: Performed By: #### C MP, ANEU, CBC, GFR, ADIFF #### [address] [address] Urea nitrogen [Mass/Vol] 11 mg/dL Normal 7-18 [facility] Comment on above: Performed By: #### C MP, ANEU, CBC, GFR, ADIFF #### [facility] [place] [facility] [address] [place], [place] [address] LABORATORYOrdered By: SYSTEM SYSTEM on 10-08-2024 Albumin BCP dye [Mass/Vol] 3.7 G/dL Normal 3.4 - 4.8 G/dL AO ADM SS Albumin/Globulin [Mass ratio] 1.1 {ratio} Normal 1.1 - 2.5 ratio AO ADM SS ALP [Catalytic activity/Vol] 134 U/L Normal 40 - 135 U/L AO ADM SS ALT With P-5'-P [Catalytic activity/Vol] 35 U/L Normal 14 - 59 U/L AO ADM SS AST With P-5'-P [Catalytic activity/Vol] 19 U/L Normal 10 - 40 U/L AO ADM SS Basophils (Bld) [#/Vol] 0.0 103/mcL Normal 0.0 - 0.3 10^3/mcL AO Workflow SS Basophils/100 WBC (Bld) 1.0 % Normal 0.0 - 2.5 % AO Workflow SS Bilirubin [Mass/Vol] 0.8 mg/dL Normal 0.2 - 1 .0 mg/dL AO ADM SS Comment on above: Interpretive Data: U se of this assay is not recommended for patients undergoing treatment with eltrombopag due to the potential for falsely elevated results. Calcium [Mass/Vol] 9.9 mg/dL Normal 8.4 - 10. 2 mg/dL AO ADM SS Chloride [Moles/Vol] 104 mmol/L Normal 98 - 10 7 mmol/L AO ADM SS CO2 [Moles/Vol] 30 mmol/L Normal 23 - 31 mmol/L AO ADM SS Creatinine [Mass/Vol] 0.85 mg/dL Normal 0.51 - 0.95 mg/dL AO ADM SS Electrolyte Balance 7.0 mEq/L Normal 4.0 - 15 .0 mEq/L AO ADM SS Eosinophil, Absolute 0.2 103/mcL Normal 0.0 - 0 .7 10^3/mcL AO Workflow SS Eosinophils/100 WBC (Bld) 3.6 % Normal 0.0 - 6.0 % AO Workflow SS Erythrocyte distribution width (RBC) [Ratio] 13.5 % Normal 11.5 - 15.5 % AO Workflow SS Estimated Glomerular Filtration Rate 72 ml/min/1.73sqm Invalid Interpretation Code AO Chemistry S Comment on above: Interpretive Data: Stages of [...] factor to calculate the eGFR results. Globulin 3.4 G/dL Normal 2.7 - 4.4 G/dL AO ADM SS Glucose [Mass/Vol] 112 mg/dL High 83 - 110 mg/dL AO ADM SS Hematocrit (Bld) [Volume fraction] 41.7 % Normal 34.0 - 46.0 % AO Workflow SS Hemoglobin (Bld) [Mass/Vol] 14.7 G/dL Normal 12.0 - 16.0 G/dL AO Workflow SS Lymphocytes (Bld) [#/Vol] 0.7 103/mcL Low 0.9 - 4.3 10^3/mcL AO Workflow SS Lymphocytes/100 WBC (Bld) 15.0 % Low 20.0 - 40.0 % AO Workflow SS MCH (RBC) [Entitic mass] 34.0 pg High 27.0 - 33.0 pg AO Workflow SS MCHC 35.1 G/dL Normal 32.0 - 36.0 G/dL AO Workflow SS MCV (RBC) [Entitic vol] 96.8 fL Normal 80.0 - 99.0 fL AO Workflow SS Monocytes (Bld) [#/Vol] 0.5 103/mcL Normal 0.1 - 1.4 10^3/mcL AO Workflow SS Monocytes/100 WBC (Bld) 11.9 % Normal 2.0 - 13.0 % AO Workflow SS Neutrophils (Bld) [#/Vol] 3.1 103/mcL Normal 2.3 - 8.1 10^3/mcL AO Workflow SS Neutrophils/100 WBC (Bld) 68.5 % Normal 50.0 - 75.0 % AO Workflow SS Platelet mean volume (Bld) [Entitic vol] 7.1 fL Normal 6.6 - 10.5 fL AO Workflow SS Platelets (Bld) [#/Vol] 237 103/mcL Normal 150 - 450 10^3/mcL AO Workflow SS Potassium [Moles/Vol] 3.8 mmol/L Normal 3.5 - 5.1 mmol/L AO ADM SS Protein [Mass/Vol] 7.1 G/dL Normal 6.4 - 8.2 G/dL AO ADM SS RBC (Bld) [#/Vol] 4.31 106/mcL Normal 4.10 - 5.3 0 10^6/mcL AO Workflow SS Sodium [Moles/Vol] 141 mmol/L Normal 136 - 145 mmol/L AO ADM SS Urea nitrogen [Mass/Vol] 11 mg/dL Normal 7 - 18 mg/dL AO ADM SS Urea nitrogen/Creatinine [Mass ratio] 13 ratio Normal 7 - 27 ratio AO ADM SS WBC (Bld) [#/Vol] 4.5 103/mcL Normal 4.5 - 10.8 10^3/mcL AO Workflow SS .Auto Diffon 09-03-2024 Basophil, Absolute 0.0 10 3/mcL Normal 0.0-0.3 [facility] Comment on above: Performed By: #### A HARJINDER, CMP, LD, GFR, ADIFF, CBC #### [address] [address] Basophils/100 WBC (Bld) 0.5 % Normal 0.0-2.5 [facility] Comment on above: Performed By: #### A HARJINDER, CMP, LD, GFR, ADIFF, CBC #### [address] [address] Eosinophil, Absolute 0.2 10 3/mcL Normal 0.0-0.7 [facility] Comment on above: Performed By: #### A HARJINDER, CMP, LD, GFR, ADIFF, CBC #### [address] [address] Eosinophils/100 WBC (Bld) 4.3 % Normal 0.0-6.0 [facility] Comment on above: Performed By: #### A HARJINDER, CMP, LD, GFR, ADIFF, CBC #### [address] [address] Lymphocyte, Absolute 0.8 10 3/mcL Low 0.9-4.3 [facility] Comment on above: Performed By: #### A HARJINDER, CMP, LD, GFR, ADIFF, CBC #### [address] [address] Lymphocytes/100 WBC (Bld) 17.5 % Low 20.0-40.0 [facility] Comment on above: Performed By: #### A HARJINDER, CMP, LD, GFR, ADIFF, CBC #### [address] [address] Monocyte, Absolute 0.6 10 3/mcL Normal 0.1-1.4 [facility] Comment on above: Performed By: #### A HARJINDER, CMP, LD, GFR, ADIFF, CBC #### [address] [address] Monocytes/100 WBC (Bld) 11.7 % Normal 2.0-13.0 [facility] Comment on above: Performed By: #### A HARJINDER, CMP, LD, GFR, ADIFF, CBC #### [address] [address] Neutrophils/100 WBC (Bld) 66.0 % Normal 50.0-75.0 [facility] Comment on above: Performed By: #### A HARJINDER, CMP, LD, GFR, ADIFF, CBC #### [address] [address] .GFRon 09-03-2024 Estimated Glomerular Filtration Rate 64 ml/min/1.73sqm Normal [facility] Comment on above: Result Comment: Stages of [...] the eGFR results. Performed By: #### A HARJINDER, CMP, LD, GFR, ADIFF, CBC ####[address] [address] .NEUABSon 09-03-2024 Neutrophil, Absolute 3.1 10 3/mcL Normal 2.3-8.1 [facility] Comment on above: Performed By: #### A HARJINDER, CMP, LD, GFR, ADIFF, CBC ####[place] [address] CBCon 09-03-2024 Erythrocyte distribution width (RBC) [Ratio] 14.2 % Normal 11.5-15.5 [facility] Comment on above: Performed By: #### A HARJINDER, CMP, LD, GFR, ADIFF, CBC #### [place] [address] Hematocrit (Bld) [Volume fraction] 42.2 % Normal 34.0-46.0 [facility] Comment on above: Performed By: #### A HARJINDER, CMP, LD, GFR, ADIFF, CBC #### [address] [address] Hgb 14.7 G/dL Normal 12.0-16.0 [facility] Comment on above: Performed By: #### A HARJINDER, CMP, LD, GFR, ADIFF, CBC #### [place] [address] MCH (RBC) [Entitic mass] 33.3 pg High 27.0-33.0 [facility] Comment on above: Performed By: #### A HARJINDER, CMP, LD, GFR, ADIFF, CBC #### [place] [address] MCHC 34.8 G/dL Normal 32.0-36.0 [facility] Comment on above: Performed By: #### A HARJINDER, CMP, LD, GFR, ADIFF, CBC #### [address] [address] MCV (RBC) [Entitic vol] 95.7 fL Normal 80.0-99.0 [facility] Comment on above: Performed By: #### A HARJINDER, CMP, LD, GFR, ADIFF, CBC #### [address] [address] Platelet 180 10 3/mcL Normal 150-450 [facility] Comment on above: Performed By: #### A HARJINDER, CMP, LD, GFR, ADIFF, CBC #### [address] [address] Platelet mean volume (Bld) [Entitic vol] 7.5 fL Normal 6.6-10.5 [facility] Comment on above: Performed By: #### A HARJINDER, CMP, LD, GFR, ADIFF, CBC #### [address] [address] RBC 4.41 10 6/mcL Normal 4.10-5.30 [facility] Comment on above: Performed By: #### A HARJINDER, CMP, LD, GFR, ADIFF, CBC #### [address] [address] WBC 4.7 10 3/mcL Normal 4.5-10.8 [facility] Comment on above: Performed By: #### A HARJINDER, CMP, LD, GFR, ADIFF, CBC #### [address] [address] CMPon 09-03-2024 Albumin Level 3.6 G/dL Normal 3.4-4.8 [facility] Comment on above: Performed By: #### A HARJINDER, CMP, LD, GFR, ADIFF, CBC ####[address] [address] Albumin/Globulin [Mass ratio] 1.1 {ratio} Normal 1.1-2.5 [facility] Comment on above: Performed By: #### A HARJINDER, CMP, LD, GFR, ADIFF, CBC ####[address] [address] ALP [Catalytic activity/Vol] 133 U/L Normal 40-135 [facility] Comment on above: Performed By: #### A HARJINDER, CMP, LD, GFR, ADIFF, CBC ####[address] [address] ALT [Catalytic activity/Vol] 35 U/L Normal 14-59 [facility] Comment on above: Performed By: #### A HARJINDER, CMP, LD, GFR, ADIFF, CBC ####[address] [address] AST [Catalytic activity/Vol] 19 U/L Normal 10-40 [facility] Comment on above: Performed By: #### A HARJINDER, CMP, LD, GFR, ADIFF, CBC ####[address] [address] Bili Total 0.9 mg/dL Normal 0.2-1.0 [facility] Comment on above: Result Comment: Use of this assay is not recommended for patients undergoing treatment with eltrombopag due to the potential for falsely elevated results. Performed By: #### A HARJINDER, CMP, LD, GFR, ADIFF, CBC ####[address] [address] BUN/Creatinine Ratio 14 ratio Normal 7-27 [facility] Comment on above: Performed By: #### A HARJINDER, CMP, LD, GFR, ADIFF, CBC ####[address] [address] Calcium [Mass/Vol] 9.5 mg/dL Normal 8.4-10.2 [facility] Comment on above: Performed By: #### A HARJINDER, CMP, LD, GFR, ADIFF, CBC ####[address] [address] Chloride [Moles/Vol] 106 mmol/L Normal 98-107 [facility] Comment on above: Performed By: #### A HARJINDER, CMP, LD, GFR, ADIFF, CBC ####[address] [address] CO2 [Moles/Vol] 27 mmol/L Normal 23-31 [facility] Comment on above: Performed By: #### A HARJINDER, CMP, LD, GFR, ADIFF, CBC ####[address] [address] Creatinine [Mass/Vol] 0.94 mg/dL Normal 0.51-0.95 [facility] Comment on above: Performed By: #### A HARJINDER, CMP, LD, GFR, ADIFF, CBC ####[place] [id number] Electrolyte Balance 10.0 mEq/L Normal 4.0-15.0 [facility] Comment on above: Performed By: #### A HARJINDER, CMP, LD, GFR, ADIFF, CBC ####[place] [address] Globulin 3.2 G/dL Normal 2.7-4.4 [facility] Comment on above: Performed By: #### A HARJINDER, CMP, LD, GFR, ADIFF, CBC ####[place] [address] Glucose [Mass/Vol] 187 mg/dL High 83-110 [facility] Comment on above: Performed By: #### A HARJINDER, CMP, LD, GFR, ADIFF, CBC ####[address] [address] Potassium [Moles/Vol] 4.1 mmol/L Normal 3.5-5.1 [facility] Comment on above: Performed By: #### A HARJINDER, CMP, LD, GFR, ADIFF, CBC ####[place] [id number] Sodium [Moles/Vol] 143 mmol/L Normal 136-145 [facility] Comment on above: Performed By: #### A HARJINDER, CMP, LD, GFR, ADIFF, CBC ####[place] [address] Total Protein 6.8 G/dL Normal 6.4-8.2 [facility] Comment on above: Performed By: #### A HARJINDER, CMP, LD, GFR, ADIFF, CBC ####[address] [place], [place] [address] Urea nitrogen [Mass/Vol] 13 mg/dL Normal 7-18 [facility] Comment on above: Performed By: #### A HARJINDER, CMP, LD, GFR, ADIFF, CBC ####[address] [place], [place] [address] LABORATORYOrdered By: SYSTEM SYSTEM on 09-03-2024 Albumin BCP dye [Mass/Vol] 3.6 G/dL Normal 3.4 - 4.8 G/dL AO ADM SS Albumin/Globulin [Mass ratio] 1.1 {ratio} Normal 1.1 - 2.5 ratio AO ADM SS ALP [Catalytic activity/Vol] 133 U/L Normal 40 - 135 U/L AO ADM SS ALT With P-5'-P [Catalytic activity/Vol] 35 U/L Normal 14 - 59 U/L AO ADM SS AST With P-5'-P [Catalytic activity/Vol] 19 U/L Normal 10 - 40 U/L AO ADM SS Basophils (Bld) [#/Vol] 0.0 103/mcL Normal 0.0 - 0.3 10^3/mcL AO Workflow SS Basophils/100 WBC (Bld) 0.5 % Normal 0.0 - 2.5 % AO Workflow SS Bilirubin [Mass/Vol] 0.9 mg/dL Normal 0.2 - 1 .0 mg/dL AO ADM SS Comment on above: Interpretive Data: U se of this assay is not recommended for patients undergoing treatment with eltrombopag due to the potential for falsely elevated results. Calcium [Mass/Vol] 9.5 mg/dL Normal 8.4 - 10. 2 mg/dL AO ADM SS Chloride [Moles/Vol] 106 mmol/L Normal 98 - 10 7 mmol/L AO ADM SS CO2 [Moles/Vol] 27 mmol/L Normal 23 - 31 mmol/L AO ADM SS Creatinine [Mass/Vol] 0.94 mg/dL Normal 0.51 - 0.95 mg/dL AO ADM SS Electrolyte Balance 10.0 mEq/L Normal 4.0 - 15 .0 mEq/L AO ADM SS Eosinophil, Absolute 0.2 103/mcL Normal 0.0 - 0 .7 10^3/mcL AO Workflow SS Eosinophils/100 WBC (Bld) 4.3 % Normal 0.0 - 6.0 % AO Workflow SS Erythrocyte distribution width (RBC) [Ratio] 14.2 % Normal 11.5 - 15.5 % AO Workflow SS Estimated Glomerular Filtration Rate 64 ml/min/1.73sqm Invalid Interpretation Code AO Chemistry S Comment on above: Interpretive Data: Stages of [...] the eGFR results. Globulin 3.2 G/dL Normal 2.7 - 4.4 G/dL AO ADM SS Glucose [Mass/Vol] 187 mg/dL High 83 - 110 mg/dL AO ADM SS Hematocrit (Bld) [Volume fraction] 42.2 % Normal 34.0 - 46.0 % AO Workflow SS Hemoglobin (Bld) [Mass/Vol] 14.7 G/dL Normal 12.0 - 16.0 G/dL AO Workflow SS LDH [Catalytic activity/Vol] 138 U/L Normal 81 - 234 U/L AO ADM SS Lymphocytes (Bld) [#/Vol] 0.8 103/mcL Low 0.9 - 4.3 10^3/mcL AO Workflow SS Lymphocytes/100 WBC (Bld) 17.5 % Low 20.0 - 40.0 % AO Workflow SS MCH (RBC) [Entitic mass] 33.3 pg High 27.0 - 33.0 pg AO Workflow SS MCHC 34.8 G/dL Normal 32.0 - 36.0 G/dL AO Workflow SS MCV (RBC) [Entitic vol] 95.7 fL Normal 80.0 - 99.0 fL AO Workflow SS Monocytes (Bld) [#/Vol] 0.6 103/mcL Normal 0.1 - 1.4 10^3/mcL AO Workflow SS Monocytes/100 WBC (Bld) 11.7 % Normal 2.0 - 13.0 % AO Workflow SS Neutrophils (Bld) [#/Vol] 3.1 103/mcL Normal 2.3 - 8.1 10^3/mcL AO Workflow SS Neutrophils/100 WBC (Bld) 66.0 % Normal 50.0 - 75.0 % AO Workflow SS Platelet mean volume (Bld) [Entitic vol] 7.5 fL Normal 6.6 - 10.5 fL AO Workflow SS Platelets (Bld) [#/Vol] 180 103/mcL Normal 150 - 450 10^3/mcL AO Workflow SS Potassium [Moles/Vol] 4.1 mmol/L Normal 3.5 - 5.1 mmol/L AO ADM SS Protein [Mass/Vol] 6.8 G/dL Normal 6.4 - 8.2 G/dL AO ADM SS RBC (Bld) [#/Vol] 4.41 106/mcL Normal 4.10 - 5.3 0 10^6/mcL AO Workflow SS Sodium [Moles/Vol] 143 mmol/L Normal 136 - 145 mmol/L AO ADM SS Urea nitrogen [Mass/Vol] 13 mg/dL Normal 7 - 18 mg/dL AO ADM SS Urea nitrogen/Creatinine [Mass ratio] 14 ratio Normal 7 - 27 ratio AO ADM SS WBC (Bld) [#/Vol] 4.7 103/mcL Normal 4.5 - 10.8 10^3/mcL AO Workflow SS LDHon 09-03-2024 LDH 138 U/L Normal 81-234 [facility] Comment on above: Performed By: #### A HARJINDER, CMP, LD, GFR, ADIFF, CBC ####[address] [address] Anion gap in Serum or Plasma Ordered By: Az Ennis on 08-24-2024 Anion gap [Moles/Vol] 12 mmol/L - [facility] BUN/creatinine ratioOrdered By: Az Ennis on 08-24-2024 Urea nitrogen/Creatinine [Mass ratio] 10.1 mg/mg 10- [facility] Bilirubin, totalOrdered By: Az Ennis on 08-24-2024 Bilirubin [Mass/Vol] 0.94 mg/dL 0.00-1.30 [facility] Calculated very low density lipoprotein (VLDL) cholesterol measurementOrdered By: Az Ennis on 08-24-2024 Calculated very low density lipoprotein (VLDL) cholesterol measurement 22 mg/dL 5-40 [facility] Carbon dioxide, total [Moles /volume] in Central venous bloodOrdered By: Az Ennis on 08-24-2024 CO2 [Moles/Vol] 24.0 mmol/L 21.0-32.0 [facility] Chloride assayOrdered By: Babar Ennis on 08-24-2024 Chloride [Moles/Vol] 103 mmol/L 98-108 [facility] Glomerular filtration rate ( GFR) estimation/1.73 sq m using serum, plasma, or whole bOrdered By: Az Ennis on 08-24-2024 GFR/1.73 sq M.predicted among non-blacks MDRD (S/P/Bld) [Vol rate/Area] 68 mL/min/{1.73_m2} >60 [facility] Comment on above: mL/min/1.73m2 CKD-EP I Creatinine Equation (2020) Hemoglobin A1c percentageOrd ered By: Az Ennis on 08-24-2024 HbA1c (Bld) [Mass fraction] 8.0 % High <5.7 [facility] Comment on above: Normal < 5.7 % Predi abetic 5.7 - 6.4 % Diabetic >or= 6.5 % Please note range changes. LDL calc ser/plasOrdered By: Az Ennis on 08-24-2024 Cholesterol in LDL [Mass/Vol] 111 mg/dL [facility] Comment on above: Twbpyzgzwp=731-291 m g/dL & Higher Uvqy=495 mg/dL or greater Laboratory - Chemistry and C hemistry - challengeOrdered By: Az Ennis on 08-24-2024 AST [Catalytic activity/Vol] 29 U/L <32 [facility] Potassium measurement (mass/ volume)Ordered By: Az Ennis on 08-24-2024 Potassium (Unsp spec) [Mass/Vol] 4.2 mmol/L 3.3-5.1 [facility] Screening total cholesterol/ high density lipoprotein (HDL) cholesterol ratioOrdered By: Az Ennis on 08-24-2024 Cholesterol.total/Shanda sterol in HDL [Mass ratio] 4.22 {ratio} [facility] Serum creatinine measurement (mass/volume)Ordered By: Az Ennis on 08-24-2024 Creatinine [Mass/Vol] 0.90 mg/dL 0.70-1.20 [facility] Serum globulin measurementOr dered By: Az Ennis on 08-24-2024 Globulin (S) [Mass/Vol] 2.5 g/dL 2.2-4.2 [facility] Serum glucose measurement (m ass/volume)Ordered By: Az Ennis on 08-24-2024 Glucose [Mass/Vol] 172 mg/dL High 70-99 [facility] Serum or plasma alanine mayes otransferase (ALT) measurementOrdered By: Az Ennis on 08-24-2024 ALT [Catalytic activity/Vol] 31 U/L <35 [facility] Serum or plasma albumin olive urement (mass/volume)Ordered By: Az Ennis on 08-24-2024 Albumin [Mass/Vol] 4.0 g/dL 3.4-4.8 [facility] Serum or plasma albumin/glob ulin mass ratioOrdered By: Az Ennis on 08-24-2024 Albumin/Globulin [Mass ratio] 1.6 {ratio} 0.9-2.4 [facility] Serum or plasma alkaline janis sphatase measurementOrdered By: Az Ennis on 08-24-2024 ALP [Catalytic activity/Vol] 128 U/L High 35-104 [facility] Serum or plasma calcium olive urement (mass/volume)Ordered By: Az Ennis on 08-24-2024 Calcium [Mass/Vol] 9.6 mg/dL 7.6-11.0 [facility] Serum or plasma cholesterol in HDL measurement (mass/volume)Ordered By: Az Ennis on 08-24-2024 Cholesterol in HDL [Mass/Vol] 41 mg/dL >40 [facility] Comment on above: National Cholesterol Education Program (NCEP) guidelines:<40 mg/dL: Low HDL-cholesterol (major risk factor for CHD)>= 60 mg/dL: High HDL-cholesterol (negative risk factor for CHD)HDL-cholesterol is affected by a number of factors, e.g. smoking, exercise, hormones, sex and age. Serum or plasma cholesterol measurement (mass/volume)Ordered By: Az Ennis on 08-24-2024 Cholesterol [Mass/Vol] 174 mg/dL <201 [facility] Comment on above: Cholesterol level, D esirable <200 mg/dLBorderline high cholesterol 200-239 mg/dLHigh cholesterol >=240 mg/dLRecommendations of the NCEP Adult Treatment Panel for the following risk-cutoff thresholds for the [place] population. Serum or plasma urea nitroge n measurement (mass/volume)Ordered By: Az Ennis on 08-24-2024 Urea nitrogen [Mass/Vol] 9 mg/dL 4-19 [facility] Sodium levelOrdered By: Livan Ennis on 08-24-2024 Sodium [Moles/Vol] 139 mmol/L 133-145 [facility] T4 freeOrdered By: Az posey on 08-24-2024 Free T4 [Mass/Vol] 1.10 ng/dL 0.76-1.46 [facility] TSH DL <= 0.005 mIU/L QnOrde red By: Az Ennis on 08-24-2024 TSH Qn 0.373 uIU/mL 0.300-4.200 [facility] Total proteinOrdered By: Yohana Ennis on 08-24-2024 Protein [Mass/Vol] 6.5 g/dL 5.9-8.4 [facility] Triglycerides measurementOrd ered By: Az Ennis on 08-24-2024 Triglyceride [Mass/Vol] 109 mg/dL <199 [facility] Comment on above: The drugs N-Acetylcy steine and Metamizole may falsely depress this assay. Normal range: <150 mg/dLBorderline High: 150-199 mg/dLHigh: 200-499 mg/dLVery High: >500 mg/dL Vitamin B12 ser/plasOrdered By: Az Ennis on 08-24-2024 Cobalamin (Vitamin B12) [Mass/Vol] 816 pg/mL 180-914 [facility] .Auto Diffon 08-15-2024 Basophil, Absolute 0.0 10 3/mcL Normal 0.0-0.3 [facility] Comment on above: Performed By: #### G FR, CMP, CBC, LD, ADIFF, ANEU #### [address] [address] Basophils/100 WBC (Bld) 0.9 % Normal 0.0-2.5 [facility] Comment on above: Performed By: #### G FR, CMP, CBC, LD, ADIFF, ANEU #### [address] [address] Eosinophil, Absolute 0.1 10 3/mcL Normal 0.0-0.7 [facility] Comment on above: Performed By: #### G FR, CMP, CBC, LD, ADIFF, ANEU #### [address] [address] Eosinophils/100 WBC (Bld) 2.9 % Normal 0.0-6.0 [facility] Comment on above: Performed By: #### G FR, CMP, CBC, LD, ADIFF, ANEU #### [address] [address] Lymphocyte, Absolute 0.8 10 3/mcL Low 0.9-4.3 [facility] Comment on above: Performed By: #### G FR, CMP, CBC, LD, ADIFF, ANEU #### [address] [address] Lymphocytes/100 WBC (Bld) 16.1 % Low 20.0-40.0 [facility] Comment on above: Performed By: #### G FR, CMP, CBC, LD, ADIFF, ANEU #### [address] [address] Monocyte, Absolute 0.5 10 3/mcL Normal 0.1-1.4 [facility] Comment on above: Performed By: #### G FR, CMP, CBC, LD, ADIFF, ANEU #### [address] [address] Monocytes/100 WBC (Bld) 11.4 % Normal 2.0-13.0 [facility] Comment on above: Performed By: #### G FR, CMP, CBC, LD, ADIFF, ANEU #### [address] [address] Neutrophils/100 WBC (Bld) 68.7 % Normal 50.0-75.0 [facility] Comment on above: Performed By: #### G FR, CMP, CBC, LD, ADIFF, ANEU #### [address] [address] .GFRon 08-15-2024 Estimated Glomerular Filtration Rate 91 ml/min/1.73sqm Normal [facility] Comment on above: Result Comment: Stages [...] FR, CMP, CBC, LD, ADIFF, ANEU #### [address] [address] .NEUABSon 08-15-2024 Neutrophil, Absolute 3.3 10 3/mcL Normal 2.3-8.1 [facility] Comment on above: Performed By: #### G FR, CMP, CBC, LD, ADIFF, ANEU #### [place] [address] CBCon 08-15-2024 Erythrocyte distribution width (RBC) [Ratio] 14.3 % Normal 11.5-15.5 [facility] Comment on above: Performed By: #### G FR, CMP, CBC, LD, ADIFF, ANEU #### [address] [address] Hematocrit (Bld) [Volume fraction] 43.5 % Normal 34.0-46.0 [facility] Comment on above: Performed By: #### G FR, CMP, CBC, LD, ADIFF, ANEU #### [address] [address] Hgb 15.3 G/dL Normal 12.0-16.0 [facility] Comment on above: Performed By: #### G FR, CMP, CBC, LD, ADIFF, ANEU #### [place] [address] MCH (RBC) [Entitic mass] 32.8 pg Normal 27.0-33.0 [facility] Comment on above: Performed By: #### G FR, CMP, CBC, LD, ADIFF, ANEU #### [place] [address] MCHC 35.1 G/dL Normal 32.0-36.0 [facility] Comment on above: Performed By: #### G FR, CMP, CBC, LD, ADIFF, ANEU #### [place] [address] MCV (RBC) [Entitic vol] 93.5 fL Normal 80.0-99.0 [facility] Comment on above: Performed By: #### G FR, CMP, CBC, LD, ADIFF, ANEU #### [place] [address] Platelet 271 10 3/mcL Normal 150-450 [facility] Comment on above: Performed By: #### G FR, CMP, CBC, LD, ADIFF, ANEU #### [place] [address] Platelet mean volume (Bld) [Entitic vol] 7.2 fL Normal 6.6-10.5 [facility] Comment on above: Performed By: #### G FR, CMP, CBC, LD, ADIFF, ANEU #### [place] [address] RBC 4.66 10 6/mcL Normal 4.10-5.30 [facility] Comment on above: Performed By: #### G FR, CMP, CBC, LD, ADIFF, ANEU #### [place] [id number] WBC 4.8 10 3/mcL Normal 4.5-10.8 [facility] Comment on above: Performed By: #### G FR, CMP, CBC, LD, ADIFF, ANEU #### [address] [address] CMPon 08-15-2024 Albumin Level 4.0 G/dL Normal 3.2-4.8 [facility] Comment on above: Performed By: #### G FR, CMP, CBC, LD, ADIFF, ANEU #### [place] [id number] Albumin/Globulin [Mass ratio] 1.4 {ratio} Normal 0.9-1.6 [facility] Comment on above: Performed By: #### G FR, CMP, CBC, LD, ADIFF, ANEU #### [place] [address] ALP [Catalytic activity/Vol] 117 U/L Normal 38-126 [facility] Comment on above: Performed By: #### G FR, CMP, CBC, LD, ADIFF, ANEU #### [place] [address] ALT [Catalytic activity/Vol] 32 U/L Normal 10-49 [facility] Comment on above: Performed By: #### G FR, CMP, CBC, LD, ADIFF, ANEU #### [place] [address] AST [Catalytic activity/Vol] 27 U/L Normal 8-34 [facility] Comment on above: Performed By: #### G FR, CMP, CBC, LD, ADIFF, ANEU #### [place] [address] Bili Total 1.20 mg/dL Normal 0.20-1.20 [facility] Comment on above: Result Comment: Use of this assay is not recommended for patients undergoing treatment with eltrombopag due to the potential for falsely elevated results. Performed By: #### G FR, CMP, CBC, LD, ADIFF, ANEU #### [place] [address] BUN/Creatinine Ratio 15.7 ratio Normal 10.0-22.0 [facility] MAIN Comment on above: Performed By: #### G FR, CMP, CBC, LD, ADIFF, ANEU #### [address] [address] Calcium [Mass/Vol] 9.9 mg/dL Normal 8.7-10.4 [facility] MAIN Comment on above: Performed By: #### G FR, CMP, CBC, LD, ADIFF, ANEU #### [address] [address] Chloride [Moles/Vol] 105 mmol/L Normal 98-110 [facility] MA[facility] Comment on above: Performed By: #### G FR, CMP, CBC, LD, ADIFF, ANEU #### [address] [address] CO2 [Moles/Vol] 24 mmol/L Normal 22-32 [facility] MAIN Comment on above: Performed By: #### G FR, CMP, CBC, LD, ADIFF, ANEU #### [address] [address] Creatinine [Mass/Vol] 0.70 mg/dL Normal 0.50-1.20 [facility] MAIN Comment on above: Result Comment: Test ing performed on Cyanogen analyzer using enzymatic creatinine methodology. Performed By: #### G FR, CMP, CBC, LD, ADIFF, ANEU #### [address] [address] Electrolyte Balance 11.0 mEq/L Normal 4.0-15.0 [facility] MAIN Comment on above: Performed By: #### G FR, CMP, CBC, LD, ADIFF, ANEU #### [address] [address] Globulin 2.9 G/dL Normal 2.5-4.2 [facility] MAIN Comment on above: Performed By: #### G FR, CMP, CBC, LD, ADIFF, ANEU #### [address] [address] Glucose [Mass/Vol] 193 mg/dL High 82-115 [facility] MAIN Comment on above: Performed By: #### G FR, CMP, CBC, LD, ADIFF, ANEU #### [address] [address] Potassium [Moles/Vol] 4.1 mmol/L Normal 3.5-5.0 [facility] MAIN Comment on above: Performed By: #### G FR, CMP, CBC, LD, ADIFF, ANEU #### [address] [address] Sodium [Moles/Vol] 140 mmol/L Normal 136-145 [facility] MAIN Comment on above: Performed By: #### G FR, CMP, CBC, LD, ADIFF, ANEU #### [address] [address] Total Protein 6.9 G/dL Normal 5.7-8.2 [facility] MAIN Comment on above: Performed By: #### G FR, CMP, CBC, LD, ADIFF, ANEU #### [address] [address] Urea nitrogen [Mass/Vol] 11.0 mg/dL Normal 8.0-22.0 [facility] MAIN Comment on above: Performed By: #### G FR, CMP, CBC, LD, ADIFF, ANEU #### [place] [address] LABORATORYOrdered By: SYSTEM SYSTEM on 08-15-2024 Albumin BCP dye [Mass/Vol] 4.0 G/dL Normal 3.2 - 4.8 G/dL ADM SS Albumin/Globulin [Mass ratio] 1.4 {ratio} Normal 0.9 - 1.6 ratio ADM SS ALP [Catalytic activity/Vol] 117 U/L Normal 38 - 126 U/L ADM SS ALT No additional P-5'-P [Catalytic activity/Vol] 32 U/L Normal 10 - 49 U/L ADM SS AST [Catalytic activity/Vol] 27 U/L Normal 8 - 34 U/L ADM [...] 11 0 mEq/L ADM SS CO2 [Moles/Vol] 24 mmol/L Normal 22 - 32 mEq/L ADM SS Creatinine [Mass/Vol] 0.70 mg/dL Normal 0.50 - 1.20 mg/dL ADM SS Comment on above: Interpretive Data: T esting performed on Cyanogen analyzer using enzymatic creatinine methodology. Electrolyte Balance 11.0 mEq/L Normal 4.0 - 15 .0 mEq/L ADM SS Eosinophils (Bld) [#/Vol] 0.1 103/mcL Normal 0.0 - 0.7 10^3/mcL Workflow SS Eosinophils/100 WBC (Bld) 2.9 % Normal 0.0 - 6.0 % Workflow SS Erythrocyte distribution width (RBC) [Ratio] 14.3 % Normal 11.5 - 15.5 % Workflow SS Estimated Glomerular Filtration Rate 91 ml/min/1.73sqm Invalid Interpretation Code ADM SS Comment [...] 15.3 G/dL Normal 12.0 - 16.0 G/dL AH Workflow SS LDH Lactate to pyruvate reaction [Catalytic activity/Vol] 182 1 Normal 120 - 246 U/L ADM SS Lymphocytes (Bld) [#/Vol] 0.8 103/mcL Low 0.9 - 4.3 10^3/mcL AH Workflow SS Lymphocytes/100 WBC (Bld) 16.1 % Low 20.0 - 40.0 % AH Workflow SS MCH (RBC) [Entitic mass] 32.8 pg Normal 27.0 - 33.0 pg AH Workflow SS MCHC 35.1 G/dL Normal 32.0 - 36.0 G/dL AH Workflow SS MCV (RBC) [Entitic vol] 93.5 fL Normal 80.0 - 99.0 fL AH [...] G/dL AH ADM SS RBC (Bld) [#/Vol] 4.66 106/mcL Normal 4.10 - 5.3 0 10^6/mcL AH Workflow SS Sodium [Moles/Vol] 140 mmol/L Normal 136 - 145 mEq/L AH ADM SS Urea nitrogen [Mass/Vol] 11.0 mg/dL Normal 8.0 - 22.0 mg/dL AH ADM SS Urea nitrogen/Creatinine [Mass ratio] 15.7 ratio Normal 10.0 - 22.0 ratio ADM SS WBC (Bld) [#/Vol] 4.8 103/mcL Normal 4.5 - 10.8 10^3/mcL AH Workflow SS LDHon 08-15-2024 LDH 182 U/L Normal 120-246 [facility] MAIN Comment on above: Performed By: #### G FR, CMP, CBC, LD, ADIFF, ANEU #### [address] [address] .Auto Diffon 07-18-2024 Basophil, Absolute 0.0 10 3/mcL Normal 0.0-0.3 [facility] Comment on above: Performed By: #### G FR, CMP, CBC, LD, ADIFF, ANEU #### [address] [address] Basophils/100 WBC (Bld) 0.6 % Normal 0.0-2.5 [facility] MAIN Comment on above: Performed By: #### G FR, CMP, CBC, LD, ADIFF, ANEU #### [address] [address] Eosinophil, Absolute 0.2 10 3/mcL Normal 0.0-0.7 [facility] MAIN Comment on above: Performed By: #### G FR, CMP, CBC, LD, ADIFF, ANEU #### [address] [address] Eosinophils/100 WBC (Bld) 3.1 % Normal 0.0-6.0 [facility] MAIN Comment on above: Performed By: #### G FR, CMP, CBC, LD, ADIFF, ANEU #### [address] [address] Lymphocyte, Absolute 0.7 10 3/mcL Low 0.9-4.3 [facility] MAIN Comment on above: Performed By: #### G FR, CMP, CBC, LD, ADIFF, ANEU #### [address] [address] Lymphocytes/100 WBC (Bld) 13.8 % Low 20.0-40.0 [facility] MAIN Comment on above: Performed By: #### G FR, CMP, CBC, LD, ADIFF, ANEU #### [address] [address] Monocyte, Absolute 0.5 10 3/mcL Normal 0.1-1.4 [facility] Comment on above: Performed By: #### G FR, CMP, CBC, LD, ADIFF, ANEU #### [address] [address] Monocytes/100 WBC (Bld) 9.9 % Normal 2.0-13.0 [facility] MAIN Comment on above: Performed By: #### G FR, CMP, CBC, LD, ADIFF, ANEU #### [address] [address] Neutrophils/100 WBC (Bld) 72.6 % Normal 50.0-75.0 [facility] MAIN Comment on above: Performed By: #### G FR, CMP, CBC, LD, ADIFF, ANEU #### [address] [address] .GFRon 07-18-2024 Estimated Glomerular Filtration Rate 92 ml/min/1.73sqm Normal [facility] MAIN Comment on above: Result Comment: Stages [...] FR, CMP, CBC, LD, ADIFF, ANEU #### [address] [address] .NEUABSon 07-18-2024 Neutrophil, Absolute 3.8 10 3/mcL Normal 2.3-8.1 [facility] MAIN Comment on above: Performed By: #### G FR, CMP, CBC, LD, ADIFF, ANEU #### [address] [address] CBCon 07-18-2024 Erythrocyte distribution width (RBC) [Ratio] 13.8 % Normal 11.5-15.5 [facility] MAIN Comment on above: Performed By: #### G FR, CMP, CBC, LD, ADIFF, ANEU #### [place] [address] Hematocrit (Bld) [Volume fraction] 41.8 % Normal 34.0-46.0 [facility] MAIN Comment on above: Performed By: #### G FR, CMP, CBC, LD, ADIFF, ANEU #### [place] [address] Hgb 14.9 G/dL Normal 12.0-16.0 [facility] MAIN Comment on above: Performed By: #### G FR, CMP, CBC, LD, ADIFF, ANEU #### [place] [address] MCH (RBC) [Entitic mass] 33.8 pg High 27.0-33.0 [facility] MAIN Comment on above: Performed By: #### G FR, CMP, CBC, LD, ADIFF, ANEU #### [place] [address] MCHC 35.7 G/dL Normal 32.0-36.0 [facility] MAIN Comment on above: Performed By: #### G FR, CMP, CBC, LD, ADIFF, ANEU #### [place] [address] MCV (RBC) [Entitic vol] 94.7 fL Normal 80.0-99.0 [facility] MAIN Comment on above: Performed By: #### G FR, CMP, CBC, LD, ADIFF, ANEU #### [place] [phone] Platelet 193 10 3/mcL Normal 150-450 [facility] MAIN Comment on above: Performed By: #### G FR, CMP, CBC, LD, ADIFF, ANEU #### [place] [phone] Platelet mean volume (Bld) [Entitic vol] 7.4 fL Normal 6.6-10.5 [facility] MAIN Comment on above: Performed By: #### G FR, CMP, CBC, LD, ADIFF, ANEU #### [address] [address] RBC 4.41 10 6/mcL Normal 4.10-5.30 [facility] MAIN Comment on above: Performed By: #### G FR, CMP, CBC, LD, ADIFF, ANEU #### [address] [address] WBC 5.3 10 3/mcL Normal 4.5-10.8 [facility] MAIN Comment on above: Performed By: #### G FR, CMP, CBC, LD, ADIFF, ANEU #### [address] [address] CMPon 07-18-2024 Albumin Level 3.8 G/dL Normal 3.2-4.8 [facility] MAIN Comment on above: Performed By: #### G FR, CMP, CBC, LD, ADIFF, ANEU #### [place] [address] Albumin/Globulin [Mass ratio] 1.4 {ratio} Normal 0.9-1.6 [facility] MAIN Comment on above: Performed By: #### G FR, CMP, CBC, LD, ADIFF, ANEU #### [address] [address] ALP [Catalytic activity/Vol] 108 U/L Normal 38-126 [facility] MAIN Comment on above: Performed By: #### G FR, CMP, CBC, LD, ADIFF, ANEU #### [address] [address] ALT [Catalytic activity/Vol] 38 U/L Normal 10-49 [facility] MAIN Comment on above: Performed By: #### G FR, CMP, CBC, LD, ADIFF, ANEU #### [address] [address] AST [Catalytic activity/Vol] 31 U/L Normal 8-34 [facility] MAIN Comment on above: Performed By: #### G FR, CMP, CBC, LD, ADIFF, ANEU #### [address] [address] Bili Total 1.20 mg/dL Normal 0.20-1.20 [facility] MAIN Comment on above: Result Comment: Use of this assay is not recommended for patients undergoing treatment with eltrombopag due to the potential for falsely elevated results. Performed By: #### G FR, CMP, CBC, LD, ADIFF, ANEU #### [place] [phone] BUN/Creatinine Ratio 14.5 ratio Normal 10.0-22.0 [facility] MAIN Comment on above: Performed By: #### G FR, CMP, CBC, LD, ADIFF, ANEU #### [place] [phone] Calcium [Mass/Vol] 9.7 mg/dL Normal 8.7-10.4 [facility] MAIN Comment on above: Performed By: #### G FR, CMP, CBC, LD, ADIFF, ANEU #### [place] [phone] Chloride [Moles/Vol] 106 mmol/L Normal 98-110 [facility] MAIN Comment on above: Performed By: #### G FR, CMP, CBC, LD, ADIFF, ANEU #### [place] [phone] CO2 [Moles/Vol] 27 mmol/L Normal 22-32 [facility] MAIN Comment on above: Performed By: #### G FR, CMP, CBC, LD, ADIFF, ANEU #### [place] [phone] Creatinine [Mass/Vol] 0.69 mg/dL Normal 0.50-1.20 [facility] MAIN Comment on above: Result Comment: Test ing performed on Cyanogen analyzer using enzymatic creatinine methodology. Performed By: #### G FR, CMP, CBC, LD, ADIFF, ANEU #### [place] [phone] Electrolyte Balance 8.0 mEq/L Normal 4.0-15.0 [facility] MAIN Comment on above: Performed By: #### G FR, CMP, CBC, LD, ADIFF, ANEU #### [place] [phone] Globulin 2.7 G/dL Normal 2.5-4.2 [facility] MAIN Comment on above: Performed By: #### G FR, CMP, CBC, LD, ADIFF, ANEU #### [address] [address] Glucose [Mass/Vol] 195 mg/dL High 82-115 [facility] MAIN Comment on above: Performed By: #### G FR, CMP, CBC, LD, ADIFF, ANEU #### [place] [phone] Potassium [Moles/Vol] 4.1 mmol/L Normal 3.5-5.0 [facility] MA[facility] Comment on above: Performed By: #### G FR, CMP, CBC, LD, ADIFF, ANEU #### [place] [address] Sodium [Moles/Vol] 141 mmol/L Normal 136-145 [facility] MAIN Comment on above: Performed By: #### G FR, CMP, CBC, LD, ADIFF, ANEU #### [place] [address] Total Protein 6.5 G/dL Normal 5.7-8.2 [facility] MAIN Comment on above: Performed By: #### G FR, CMP, CBC, LD, ADIFF, ANEU #### [place] [address] Urea nitrogen [Mass/Vol] 10.0 mg/dL Normal 8.0-22.0 [facility] MAIN Comment on above: Performed By: #### G FR, CMP, CBC, LD, ADIFF, ANEU #### [place] [address] LABORATORYOrdered By: SYSTEM SYSTEM on 07-18-2024 Albumin BCP dye [Mass/Vol] 3.8 G/dL Normal 3.2 - 4.8 G/dL ADM SS Albumin/Globulin [Mass ratio] 1.4 {ratio} Normal 0.9 - 1.6 ratio AH ADM SS ALP [Catalytic activity/Vol] 108 U/L Normal 38 - 126 U/L ADM SS ALT No additional P-5'-P [Catalytic activity/Vol] 38 U/L Normal 10 - 49 U/L ADM SS AST [Catalytic activity/Vol] 31 U/L Normal 8 - 34 U/L AH ADM SS Basophils (Bld) [#/Vol] 0.0 103/mcL Normal 0.0 - 0.3 10^3/mcL AH Workflow SS Basophils/100 WBC (Bld) 0.6 % [...] 4 mg/dL AH ADM SS Chloride [Moles/Vol] 106 mmol/L Normal 98 - 11 0 mEq/L ADM SS CO2 [Moles/Vol] 27 mmol/L Normal 22 - 32 mEq/L ADM SS Creatinine [Mass/Vol] 0.69 mg/dL Normal 0.50 - 1.20 mg/dL ADM SS Comment on above: Interpretive Data: T esting performed on Cyanogen analyzer using enzymatic creatinine methodology. Electrolyte Balance [...] 41.8 % Normal 34.0 - 46.0 % AH Workflow SS Hemoglobin (Bld) [Mass/Vol] 14.9 G/dL Normal 12.0 - 16.0 G/dL Workflow SS LDH Lactate to pyruvate reaction [Catalytic activity/Vol] 173 1 Normal 120 - 246 U/L ADM SS Lymphocytes (Bld) [#/Vol] 0.7 103/mcL Low 0.9 - 4.3 10^3/mcL Workflow SS Lymphocytes/100 WBC (Bld) 13.8 % Low 20.0 - 40.0 % Workflow SS MCH (RBC) [Entitic mass] 33.8 pg High 27.0 - 33.0 pg Workflow SS MCHC 35.7 G/dL Normal 32.0 - 36.0 G/dL Workflow SS MCV (RBC) [Entitic vol] 94.7 fL Normal 80.0 - 99.0 fL Workflow SS Monocytes (Bld) [#/Vol] 0.5 103/mcL Normal 0.1 - 1.4 10^3/mcL AH Workflow SS Monocytes/100 WBC (Bld) 9.9 % Normal 2.0 - 13.0 % AH Workflow SS Neutrophils (Bld) [#/Vol] 3.8 103/mcL Normal 2.3 - 8.1 10^3/mcL Workflow SS Neutrophils/100 WBC (Bld) 72.6 % Normal 50.0 - 75.0 % Workflow SS Platelet mean volume (Bld) [Entitic vol] 7.4 fL Normal 6.6 - 10.5 fL Workflow SS Platelets (Bld) [#/Vol] 193 103/mcL Normal 150 - 450 10^3/mcL Workflow SS Potassium [Moles/Vol] 4.1 mmol/L Normal 3.5 - 5.0 mEq/L ADM SS Protein [Mass/Vol] 6.5 G/dL Normal 5.7 - 8.2 G/dL ADM SS RBC (Bld) [#/Vol] 4.41 106/mcL Normal 4.10 - 5.3 0 10^6/mcL AH Workflow SS Sodium [Moles/Vol] 141 mmol/L Normal 136 - 145 mEq/L AH ADM SS Urea nitrogen [Mass/Vol] 10.0 mg/dL Normal 8.0 - 22.0 mg/dL AH ADM SS Urea nitrogen/Creatinine [Mass ratio] 14.5 ratio Normal 10.0 - 22.0 ratio AH ADM SS WBC (Bld) [#/Vol] 5.3 103/mcL Normal 4.5 - 10.8 10^3/mcL AH Workflow SS LDHon 07-18-2024 LDH 173 U/L Normal 120-246 [facility] MAIN Comment on above: Performed By: #### G FR, CMP, CBC, LD, ADIFF, ANEU #### [place] [address] MR BRAIN TUMOR PERFUSION PRO TOCOL W AND WO IV CONTRASTon 07-06-2024 MR BRAIN TUMOR PERFUSION PROTOCOL W AND WO IV CONTRAST Interpreted By: Yola Link, STUDY: MR BRAIN TUMOR PERFUSION PROTOCOL W AND WO IV CONTRAST; MR SPECTROSCOPY INDICATION: Signs/Symptoms:GBM S/P RT W PROGRESSION VS PSEUDOPROGRESSION; Signs/Symptoms:SPECTRO SCOPY W PROGRESSION VS PSEUDOPROGRESSION COMPARISON: None. ACCESSION NUMBER(S): [id number]; [id number] ORDERING CLINICIAN: INTERFACE UNSPECIFIELDPROVIDER TECHNIQUE: Multi-planar multi-sequential [...] Yola Link 07/09/2024 3:53 PM Dictation workstation: [id number] [facility] Comment on above: Order Comment: ORDER TO BE SCANNED MR SPECTROSCOPYon 07-06-2024 MR SPECTROSCOPY Interpreted By: Yola Gonzalez, STUDY: MR BRAIN TUMOR PERFUSION PROTOCOL W AND WO IV CONTRAST; MR SPECTROSCOPY INDICATION: Signs/Symptoms:GBM S/P RT W PROGRESSION VS PSEUDOPROGRESSION; Signs/Symptoms:SPECTRO SCOPY W PROGRESSION VS PSEUDOPROGRESSION COMPARISON: None. ACCESSION NUMBER(S): [id number]; [id number] ORDERING CLINICIAN: INTERFACE UNSPECIFIELDPROVIDER TECHNIQUE: Multi-planar multi-sequential [...] Yola Link 07/09/2024 3:53 PM Dictation workstation: [id number] [facility] Comment on above: Order Comment: ORDER TO BE SCANNED .Auto Diffon 06-20-2024 Basophil, Absolute 0.0 10 3/mcL Normal 0.0-0.3 [facility] Comment on above: Performed By: #### G FR, CMP, CBC, LD, ADIFF, ANEU #### [facility] [address] [place] [address] Basophils/100 WBC (Bld) 0.7 % Normal 0.0-2.5 [facility] MAIN Comment on above: Performed By: #### G FR, CMP, CBC, LD, ADIFF, ANEU #### [address] [address] Eosinophil, Absolute 0.2 10 3/mcL Normal 0.0-0.7 [facility] MAIN Comment on above: Performed By: #### G FR, CMP, CBC, LD, ADIFF, ANEU #### [address] [address] Eosinophils/100 WBC (Bld) 3.2 % Normal 0.0-6.0 [facility]IN Comment on above: Performed By: #### G FR, CMP, CBC, LD, ADIFF, ANEU #### [address] [address] Lymphocyte, Absolute 1.0 10 3/mcL Normal 0.9-4.3 [facility] MAIN Comment on above: Performed By: #### G FR, CMP, CBC, LD, ADIFF, ANEU #### [address] [address] Lymphocytes/100 WBC (Bld) 20.2 % Normal 20.0-40.0 [facility] MAIN Comment on above: Performed By: #### G FR, CMP, CBC, LD, ADIFF, ANEU #### [address] [address] Monocyte, Absolute 0.6 10 3/mcL Normal 0.1-1.4 [facility] Comment on above: Performed By: #### G FR, CMP, CBC, LD, ADIFF, ANEU #### [address] [address] Monocytes/100 WBC (Bld) 11.5 % Normal 2.0-13.0 [facility] Comment on above: Performed By: #### G FR, CMP, CBC, LD, ADIFF, ANEU #### [address] [address] Neutrophils/100 WBC (Bld) 64.4 % Normal 50.0-75.0 [facility] Comment on above: Performed By: #### G FR, CMP, CBC, LD, ADIFF, ANEU #### [address] [address] .GFRon 06-20-2024 Estimated Glomerular Filtration Rate 81 ml/min/1.73sqm Normal [facility] MAIN Comment on above: Result Comment: Stages [...] FR, CMP, CBC, LD, ADIFF, ANEU #### [place] [address] .NEUABSon 06-20-2024 Neutrophil, Absolute 3.3 10 3/mcL Normal 2.3-8.1 [facility] MAIN Comment on above: Performed By: #### G FR, CMP, CBC, LD, ADIFF, ANEU #### [place] [address] CBCon 06-20-2024 Erythrocyte distribution width (RBC) [Ratio] 13.0 % Normal 11.5-15.5 [facility]IN Comment on above: Performed By: #### G FR, CMP, CBC, LD, ADIFF, ANEU #### [place] [address] Hematocrit (Bld) [Volume fraction] 42.1 % Normal 34.0-46.0 [facility] Comment on above: Performed By: #### G FR, CMP, CBC, LD, ADIFF, ANEU #### [place] [address] Hgb 14.9 G/dL Normal 12.0-16.0 [facility] Comment on above: Performed By: #### G FR, CMP, CBC, LD, ADIFF, ANEU #### [place] [address] MCH (RBC) [Entitic mass] 32.7 pg Normal 27.0-33.0 [facility] Comment on above: Performed By: #### G FR, CMP, CBC, LD, ADIFF, ANEU #### [place] [address] MCHC 35.4 G/dL Normal 32.0-36.0 [facility] Comment on above: Performed By: #### G FR, CMP, CBC, LD, ADIFF, ANEU #### [place] [address] MCV (RBC) [Entitic vol] 92.4 fL Normal 80.0-99.0 [facility] Comment on above: Performed By: #### G FR, CMP, CBC, LD, ADIFF, ANEU #### [place] [address] Platelet 244 10 3/mcL Normal 150-450 [facility] Comment on above: Performed By: #### G FR, CMP, CBC, LD, ADIFF, ANEU #### [place] [address] Platelet mean volume (Bld) [Entitic vol] 7.4 fL Normal 6.6-10.5 [facility] Comment on above: Performed By: #### G FR, CMP, CBC, LD, ADIFF, ANEU #### [place] [address] RBC 4.55 10 6/mcL Normal 4.10-5.30 [facility] Comment on above: Performed By: #### G FR, CMP, CBC, LD, ADIFF, ANEU #### [place] [phone] WBC 5.1 10 3/mcL Normal 4.5-10.8 [facility] Comment on above: Performed By: #### G FR, CMP, CBC, LD, ADIFF, ANEU #### [place] [address] CMPon 06-20-2024 Albumin Level 3.8 G/dL Normal 3.2-4.8 [facility] Comment on above: Performed By: #### G FR, CMP, CBC, LD, ADIFF, ANEU #### [place] [address] Albumin/Globulin [Mass ratio] 1.2 {ratio} Normal 0.9-1.6 [facility] Comment on above: Performed By: #### G FR, CMP, CBC, LD, ADIFF, ANEU #### [place] [phone] ALP [Catalytic activity/Vol] 97 U/L Normal 38-126 [facility] Comment on above: Performed By: #### G FR, CMP, CBC, LD, ADIFF, ANEU #### [place] [phone] ALT [Catalytic activity/Vol] 35 U/L Normal 10-49 [facility] Comment on above: Performed By: #### G FR, CMP, CBC, LD, ADIFF, ANEU #### [place] [phone] AST [Catalytic activity/Vol] 29 U/L Normal 8-34 [facility] Comment on above: Performed By: #### G FR, CMP, CBC, LD, ADIFF, ANEU #### [place] [phone] Bili Total 0.90 mg/dL Normal 0.20-1.20 [facility] Comment on above: Result Comment: Use of this assay is not recommended for patients undergoing treatment with eltrombopag due to the potential for falsely elevated results. Performed By: #### G FR, CMP, CBC, LD, ADIFF, ANEU #### [place] [phone] BUN/Creatinine Ratio 10.4 ratio Normal 10.0-22.0 [facility] Comment on above: Performed By: #### G FR, CMP, CBC, LD, ADIFF, ANEU #### [place] [phone] Calcium [Mass/Vol] 9.7 mg/dL Normal 8.7-10.4 [facility] Comment on above: Performed By: #### G FR, CMP, CBC, LD, ADIFF, ANEU #### [address] [address] Chloride [Moles/Vol] 107 mmol/L Normal 98-110 [facility] Comment on above: Performed By: #### G FR, CMP, CBC, LD, ADIFF, ANEU #### [address] [address] CO2 [Moles/Vol] 26 mmol/L Normal 22-32 [facility] Comment on above: Performed By: #### G FR, CMP, CBC, LD, ADIFF, ANEU #### [address] [address] Creatinine [Mass/Vol] 0.77 mg/dL Normal 0.50-1.20 [facility] Comment on above: Result Comment: Test ing performed on Cyanogen analyzer using enzymatic creatinine methodology. Performed By: #### G FR, CMP, CBC, LD, ADIFF, ANEU #### [address] [address] Electrolyte Balance 7.0 mEq/L Normal 4.0-15.0 [facility] Comment on above: Performed By: #### G FR, CMP, CBC, LD, ADIFF, ANEU #### [address] [address] Globulin 3.2 G/dL Normal 1.5-3.8 [facility] Comment on above: Performed By: #### G FR, CMP, CBC, LD, ADIFF, ANEU #### [address] [address] Glucose [Mass/Vol] 168 mg/dL High 82-115 [facility] Comment on above: Performed By: #### G FR, CMP, CBC, LD, ADIFF, ANEU #### [address] [address] Potassium [Moles/Vol] 3.4 mmol/L Low 3.5-5.0 [facility] Comment on above: Performed By: #### G FR, CMP, CBC, LD, ADIFF, ANEU #### [facility] [address] [place] [id number] Sodium [Moles/Vol] 140 mmol/L Normal 136-145 [facility] Comment on above: Performed By: #### G FR, CMP, CBC, LD, ADIFF, ANEU #### [facility] [address] [place] [id number] Total Protein 7.0 G/dL Normal 5.7-8.2 [facility] Comment on above: Performed By: #### G FR, CMP, CBC, LD, ADIFF, ANEU #### [address] [address] Urea nitrogen [Mass/Vol] 8.0 mg/dL Normal 8.0-22.0 [facility] Comment on above: Performed By: #### G FR, CMP, CBC, LD, ADIFF, ANEU #### [address] [address] LABORATORYOrdered By: SYSTEM SYSTEM on 06-20-2024 Albumin BCP dye [Mass/Vol] 3.8 G/dL Normal 3.2 - 4.8 G/dL ADM SS Albumin/Globulin [Mass ratio] 1.2 {ratio} Normal 0.9 - 1.6 ratio ADM SS ALP [Catalytic activity/Vol] 97 U/L Normal 38 - 126 U/L ADM SS ALT No additional P-5'-P [Catalytic activity/Vol] 35 U/L Normal 10 - 49 U/L ADM SS AST [Catalytic activity/Vol] 29 U/L Normal 8 - 34 U/L ADM SS Basophils (Bld) [#/Vol] 0.0 103/mcL Normal 0.0 - 0.3 10^3/mcL Workflow SS Basophils/100 WBC (Bld) 0.7 % Normal 0.0 - 2.5 % Workflow SS Bilirubin [Mass/Vol] 0.90 mg/dL Normal 0.20 - 1.20 mg/dL ADM [...] above: Interpretive Data: T esting performed on Cyanogen analyzer using enzymatic creatinine methodology. Electrolyte Balance 7.0 mEq/L Normal 4.0 - 15 .0 mEq/L ADM SS Eosinophils (Bld) [#/Vol] 0.2 103/mcL Normal 0.0 - 0.7 10^3/mcL Workflow SS Eosinophils/100 WBC (Bld) 3.2 % Normal 0.0 - 6.0 % Workflow [...] 10^3/mcL AH Workflow SS Lymphocytes/100 WBC (Bld) 20.2 % Normal 20.0 - 40.0 % AH Workflow SS MCH (RBC) [Entitic mass] 32.7 pg Normal 27.0 - 33.0 pg AH Workflow SS MCHC 35.4 G/dL Normal 32.0 - 36.0 G/dL AH Workflow SS MCV (RBC) [Entitic vol] 92.4 fL Normal 80.0 - 99.0 fL AH Workflow SS Monocytes (Bld) [#/Vol] 0.6 103/mcL Normal 0.1 - 1.4 10^3/mcL AH Workflow SS Monocytes/100 WBC (Bld) 11.5 % Normal 2.0 - 13.0 % AH [...] mEq/L AH ADM SS Urea nitrogen [Mass/Vol] 8.0 mg/dL Normal 8.0 - 22.0 mg/dL AH ADM SS Urea nitrogen/Creatinine [Mass ratio] 10.4 ratio Normal 10.0 - 22.0 ratio AH ADM SS WBC (Bld) [#/Vol] 5.1 103/mcL Normal 4.5 - 10.8 10^3/mcL AH Workflow SS LDHon 06-20-2024 LDH 226 U/L Normal 120-246 [facility] Comment on above: Performed By: #### G FR, CMP, CBC, LD, ADIFF, ANEU #### [facility] [address] [place] [id number] Absolute neutrophil countOrd ered By: Will Lim on 05-29-2024 Neutrophils (Bld) [#/Vol] 2.8 10*3/uL 2.0-7.7 [facility] Anion gap in Serum or Plasma Ordered By: Will Lim on 05-29-2024 Anion gap [Moles/Vol] 9 mmol/L 5-15 [facility] BUN/creatinine ratioOrdered By: Will Lim on 05-29-2024 Urea nitrogen/Creatinine [Mass ratio] 10.9 mg/mg 10-20 [facility] Basophil percentageOrdered B y: Will Lim on 05-29-2024 Basophils/100 WBC (Bld) 0.9 % 0-1 [facility] Bilirubin, totalOrdered By: Will Lim on 05-29-2024 Bilirubin [Mass/Vol] 0.68 mg/dL 0.00-1.30 [facility] CBC W/Diff, Automatedon Absolute Lymph 0.90 X10 3/uL Normal 0.83-4.51 [facility] Comment on above: Performed By: #### L 100.0100, L501.5200, L500.2500, L501.6710 #### [facility] [address] [place], [address] Absolute Neut 2.8 X10 3/uL Normal 2.0-7.7 [facility] Comment on above: Performed By: #### L 100.0100, L501.5200, L500.2500, L501.6710 #### [facility] [address] [place], [address] Basophils/100 WBC (Bld) 0.9 % Normal 0-1 [facility] Comment on above: Performed By: #### L 100.0100, L501.5200, L500.2500, L501.6710 #### [facility] [address] [place], [address] Eosinophils/100 WBC (Bld) 2.7 % Normal 0-5 [facility] Comment on above: Performed By: #### L 100.0100, L501.5200, L500.2500, L501.6710 #### [facility] [address] [place], [address] Erythrocyte distribution width (RBC) [Ratio] 12.3 % Normal 11.6-14.6 [facility] Comment on above: Performed By: #### L 100.0100, L501.5200, L500.2500, L501.6710 #### [facility] [address] [place], [address] Hematocrit (Bld) [Volume fraction] 40.0 % Normal 37-47 [facility] Comment on above: Performed By: #### L 100.0100, L501.5200, L500.2500, L501.6710 #### [facility] [address] [place], [address] Hemoglobin (Bld) [Mass/Vol] 14.2 g/dL Normal 12.0-15.0 [facility] Comment on above: Performed By: #### L 100.0100, L501.5200, L500.2500, L501.6710 #### [facility] [address] [place], [address] IG% 0.200 Normal 0.0-0.9 [facility] Comment on above: Result Comment: IG% - Immature Granulocytes (promyelocytes, myelocytes and metamyelocytes) > 1% indicates that a LEFT SHIFT is Present. Performed By: #### L 100.0100, L501.5200, L500.2500, L501.6710 #### [facility] [address] [place], [address] Lymphocytes/100 WBC (Bld) 20.2 % Normal 19-41 [facility] Comment on above: Performed By: #### L 100.0100, L501.5200, L500.2500, L501.6710 #### [facility] [address] [place], [address] MCH (RBC) [Entitic mass] 32.7 pg High 27.0-32.0 [facility] Comment on above: Performed By: #### L 100.0100, L501.5200, L500.2500, L501.6710 #### [facility] [address] [place], [address] MCHC (RBC) [Mass/Vol] 35.5 g/dL Normal 32-36 [facility] Comment on above: Performed By: #### L 100.0100, L501.5200, L500.2500, L501.6710 #### [facility] [address] [place], [address] MCV (RBC) [Entitic vol] 92.2 fL Normal 81-99 [facility] Comment on above: Performed By: #### L 100.0100, L501.5200, L500.2500, L501.6710 #### [facility] [address] [place], [address] Monocytes/100 WBC (Bld) 12.6 % High 0-10 [facility] Comment on above: Performed By: #### L 100.0100, L501.5200, L500.2500, L501.6710 #### [facility] [address] [place], [address] Neutrophils/100 WBC (Bld) 63.4 % Normal 47-70 [facility] Comment on above: Performed By: #### L 100.0100, L501.5200, L500.2500, L501.6710 #### [facility] [address] [place], [address] Nucleated RBC (Bld) [#/Vol] 0 10*3/uL Normal 0-5 [facility] Comment on above: Performed By: #### L 100.0100, L501.5200, L500.2500, L501.6710 #### [facility] [address] [place], [address] Platelet mean volume (Bld) [Entitic vol] 8.8 fL Normal 6.2-12.0 [facility] Comment on above: Performed By: #### L 100.0100, L501.5200, L500.2500, L501.6710 #### [facility] [address] [place], [address] Platelets (Bld) [#/Vol] 209 10*3/uL Normal 150-450 [facility] Comment on above: Performed By: #### L 100.0100, L501.5200, L500.2500, L501.6710 #### [facility] [address] [place], [address] RBC (Bld) [#/Vol] 4.34 10*6/uL Normal 4.2-5.4 [facility] Comment on above: Performed By: #### L 100.0100, L501.5200, L500.2500, L501.6710 #### [facility] [address] [place], [address] RDW SD 41.1 fl Normal 35.1-43.9 [facility] Comment on above: Performed By: #### L 100.0100, L501.5200, L500.2500, L501.6710 #### [facility] [address] [place], [address] WBC (Bld) [#/Vol] 4.5 10*3/uL Normal 4.4-11.0 [facility] Comment on above: Performed By: #### L 100.0100, L501.5200, L500.2500, L501.6710 #### [facility] [address] [place], [address] Carbon dioxide, total [Moles /volume] in Central venous bloodOrdered By: Will Lim on 05-29-2024 CO2 [Moles/Vol] 27.1 mmol/L 21.0-32.0 [facility] Chloride assayOrdered By: Toni Lim on 05-29-2024 Chloride [Moles/Vol] 105 mmol/L 98-108 [facility] Comprehensive Metabolic Prof ilon 05-29-2024 Albumin [Mass/Vol] 4.0 g/dL Normal 3.4-4.8 [facility] Comment on above: Performed By: #### L 100.0100, L501.5200, L500.2500, L501.6710 #### [facility] [address] [place], [address] Albumin/Globulin [Mass ratio] 1.5 {ratio} Normal 0.9-2.4 [facility] Comment on above: Performed By: #### L 100.0100, L501.5200, L500.2500, L501.6710 #### [facility] [address] [place], [address] ALK PHOS 96 U/L Normal 35-104 [facility] Comment on above: Performed By: #### L 100.0100, L501.5200, L500.2500, L501.6710 #### [facility] [address] [place], [address] ALT [Catalytic activity/Vol] 25 U/L Normal <=34 [facility] Comment on above: Performed By: #### L 100.0100, L501.5200, L500.2500, L501.6710 #### [facility] [address] [place], [address] AST [Catalytic activity/Vol] 24 U/L Normal <=31 [facility] Comment on above: Performed By: #### L 100.0100, L501.5200, L500.2500, L501.6710 #### [facility] [address] [place], [address] Bilirubin [Mass/Vol] 0.68 mg/dL Normal 0.00-1.30 [facility] Comment on above: Performed By: #### L 100.0100, L501.5200, L500.2500, L501.6710 #### [facility] [address] [place], [address] BUN/CRE 10.9 RATIO Normal 10-20 [facility] Comment on above: Performed By: #### L 100.0100, L501.5200, L500.2500, L501.6710 #### [facility] [address] [place], [address] Calcium [Mass/Vol] 9.8 mg/dL Normal 7.6-11.0 [facility] Comment on above: Performed By: #### L 100.0100, L501.5200, L500.2500, L501.6710 #### [facility] [address] [place], [address] Chloride [Moles/Vol] 105 mmol/L Normal 98-108 [facility] Comment on above: Performed By: #### L 100.0100, L501.5200, L500.2500, L501.6710 #### [facility] [address] [place], [address] CO2 [Moles/Vol] 27.1 mmol/L Normal 21.0-32.0 [facility] Comment on above: Performed By: #### L 100.0100, L501.5200, L500.2500, L501.6710 #### [facility] [address] [place], [address] Creatinine [Mass/Vol] 0.91 mg/dL Normal 0.70-1.20 [facility] Comment on above: Performed By: #### L 100.0100, L501.5200, L500.2500, L501.6710 #### [facility] [address] [place], [address] GAP 9 Normal 5-15 [facility] Comment on above: Performed By: #### L 100.0100, L501.5200, L500.2500, L501.6710 #### [facility] [address] [place], [address] GFR/1.73 sq M.predicted among non-blacks MDRD (S/P/Bld) [Vol rate/Area] 66 mL/min/{1.73_m2} Normal >60 [facility] Comment on above: Result Comment: mL/m in/1.73m2 CKD-EPI Creatinine Equation (2020) Performed By: #### L 100.0100, L501.5200, L500.2500, L501.6710 #### [facility] [address] [place], [address] Globulin (S) [Mass/Vol] 2.7 g/dL Normal 2.2-4.2 [facility] Comment on above: Performed By: #### L 100.0100, L501.5200, L500.2500, L501.6710 #### [facility] [address] [place], [address] Glucose [Mass/Vol] 122 mg/dL High 70-99 [facility] Comment on above: Performed By: #### L 100.0100, L501.5200, L500.2500, L501.6710 #### [facility] [address] [place], [address] Potassium [Moles/Vol] 3.9 mmol/L Normal 3.3-5.1 [facility] Comment on above: Performed By: #### L 100.0100, L501.5200, L500.2500, L501.6710 #### [facility] [address] [place], [address] Sodium [Moles/Vol] 141 mmol/L Normal 133-145 [facility] Comment on above: Performed By: #### L 100.0100, L501.5200, L500.2500, L501.6710 #### [facility] [address] [place], [address] T PROT 6.6 g/dL Normal 5.9-8.4 [facility] Comment on above: Performed By: #### L 100.0100, L501.5200, L500.2500, L501.6710 #### [facility] [address] [place], [address] Urea nitrogen [Mass/Vol] 10 mg/dL Normal 4-19 [facility] Comment on above: Performed By: #### L 100.0100, L501.5200, L500.2500, L501.6710 #### [facility] [address] [place], [address] Eosinophil percentageOrdered By: Will Lim on 05-29-2024 Eosinophils/100 WBC (Bld) 2.7 % 0-5 [facility] Erythrocyte distribution wid th (RBC) [Ratio]Ordered By: Will Lim on 05-29-2024 Erythrocyte distribution width (RBC) [Entitic vol] 41.1 fL 35.1-43.9 [facility] Erythrocyte distribution wid th ratioOrdered By: Will Lim on 05-29-2024 Erythrocyte distribution width (RBC) [Ratio] 12.3 % 11.6-14.6 [facility] GFR/1.73 sq M.predicted brianna g non-blacks MDRD (S/P/Bld) [Vol rate/Area]Ordered By: Will Lim on 05-29-2024 Estimated GFR (MDRD) Non-Af Amer 66 >60 [facility] Comment on above: mL/min/1.73m2 CKD-EP I Creatinine Equation (2020) Hematocrit Auto (Bld) [Volum e fraction]Ordered By: Will Lim on 05-29-2024 Hematocrit (Bld) [Volume fraction] 40.0 % 37-47 [facility] Hemoglobin measurementOrdere d By: Will Lim on 05-29-2024 Hemoglobin (Bld) [Mass/Vol] 14.2 g/dL 12.0-15.0 [facility] Immature granulocytes/100 WB C Auto (Bld)Ordered By: Will Lim on 05-29-2024 Immature granulocytes/100 WBC (Bld) 0.200 % 0.0-0.9 [facility] Comment on above: IG% - Immature Granu locytes (promyelocytes, myelocytes and metamyelocytes) > 1% indicates that a LEFT SHIFT is Present. L506.1001on 05-29-2024 Vitamin D 25-OH 22.2 ng/mL Low 30-100 [facility] Comment on above: Result Comment: Rebeca min D Status Deficiency: <20 ng/mL (50nmol/L) Insufficiency: 20-30 ng/mL (50-75 nmol/L) Sufficiency: 30-100 ng/mL (75-250 nmol/L) Toxicity: >100 ng/mL (>250 nmol/L) Performed By: #### L 100.0100, L501.5200, L500.2500, L501.6710 #### [facility] [address] [place], [address] Laboratory - Chemistry and C hemistry - challengeOrdered By: Will Lim on 05-29-2024 AST [Catalytic activity/Vol] 24 U/L <32 [facility] Lymphocytes Auto (Unsp spec) [#/Vol]Ordered By: Will Lim on 05-29-2024 Lymphocytes (Bld) [#/Vol] 0.90 10*3/uL 0.83-4.51 [facility] Lymphocytes/100 WBC Auto (Un sp spec)Ordered By: Will Lim on 05-29-2024 Lymphocytes/100 WBC (Bld) 20.2 % 19-41 [facility] MCV (mean corpuscular volume ) determinationOrdered By: Will Lim on 05-29-2024 MCV (RBC) [Entitic vol] 92.2 fL 81-99 [facility] Mean corpuscular hemoglobin (MCH) determinationOrdered By: Will Lim on 05-29-2024 MCH (RBC) [Entitic mass] 32.7 pg High 27.0-32.0 [facility] Mean corpuscular hemoglobin concentration (MCHC) determinationOrdered By: Will Lim on 05-29-2024 MCHC (RBC) [Mass/Vol] 35.5 g/dL 32-36 [facility] Mean platelet volume determi nationOrdered By: Will Lim on 05-29-2024 Platelet mean volume (Bld) [Entitic vol] 8.8 fL 6.2-12.0 [facility] Monocyte percentageOrdered B y: Will Lim on 05-29-2024 Monocytes/100 WBC (Bld) 12.6 % High 0-10 [facility] Neutrophil percentageOrdered By: Will Lim on 05-29-2024 Neutrophils/100 WBC (Bld) 63.4 % 47-70 [facility] Nucleated red blood cell per centageOrdered By: Will Lim on 05-29-2024 Nucleated RBC/100 WBC (Bld) [Ratio] 0 % 0-5 [facility] Platelet countOrdered By: Toni Lim on 05-29-2024 Platelets (Bld) [#/Vol] 209 10*3/uL 150-450 [facility] Potassium (Unsp spec) [Mass/ Vol]Ordered By: Will Lim on 05-29-2024 Potassium [Moles/Vol] 3.9 mmol/L 3.3-5.1 [facility] RBC Auto (Bld) [#/Vol]Ordere d By: Will Lim on 05-29-2024 RBC (Bld) [#/Vol] 4.34 10*6/uL 4.2-5.4 [facility] Serum creatinine measurement (mass/volume)Ordered By: Will Lim on 05-29-2024 Creatinine [Mass/Vol] 0.91 mg/dL 0.70-1.20 [facility] Serum globulin measurementOr dered By: Will Lim on 05-29-2024 Globulin (S) [Mass/Vol] 2.7 g/dL 2.2-4.2 [facility] Serum glucose measurement (m ass/volume)Ordered By: Will Lim on 05-29-2024 Glucose [Mass/Vol] 122 mg/dL High 70-99 [facility] Serum or plasma alanine mayes otransferase (ALT) measurementOrdered By: Will Lim on 05-29-2024 ALT [Catalytic activity/Vol] 25 U/L <35 [facility] Serum or plasma albumin olive urement (mass/volume)Ordered By: Will Lim on 05-29-2024 Albumin [Mass/Vol] 4.0 g/dL 3.4-4.8 [facility] Serum or plasma albumin/glob ulin mass ratioOrdered By: Will Lim on 05-29-2024 Albumin/Globulin [Mass ratio] 1.5 {ratio} 0.9-2.4 [facility] Serum or plasma alkaline janis sphatase measurementOrdered By: Will Lim on 05-29-2024 ALP [Catalytic activity/Vol] 96 U/L 35-104 [facility] Serum or plasma calcium olive urement (mass/volume)Ordered By: Will Lim on 05-29-2024 Calcium [Mass/Vol] 9.8 mg/dL 7.6-11.0 [facility] Serum or plasma urea nitroge n measurement (mass/volume)Ordered By: Will Lim on 05-29-2024 Urea nitrogen [Mass/Vol] 10 mg/dL 4-19 [facility] Sodium levelOrdered By: Will Lim on 05-29-2024 Sodium [Moles/Vol] 141 mmol/L 133-145 [facility] TSH DL <= 0.005 mIU/L QnOrde red By: Will Lim on 05-29-2024 Thyroid Stimulating Hormone (TSH) 0.074 uIU/mL Low 0.300-4.200 [facility] Thyroid Stim Hormone (TSH)on 05-29-2024 TSH 0.074 uIU/mL Low 0.300-4.200 [facility] Comment on above: Performed By: #### L 100.0100, L501.5200, L500.2500, L501.6710 #### [facility] [place] [address], [address] Total proteinOrdered By: Will Lim on 05-29-2024 Protein [Mass/Vol] 6.6 g/dL 5.9-8.4 [facility] Vitamin D, 25-hydroxyOrdered By: Will Lim on 05-29-2024 Vitamin D 25-Hydroxy 22.2 ng/mL Low 30-100 [facility] Comment on above: Vitamin D StatusDefi ciency: <20 ng/mL (50nmol/L)Insufficiency: 20-30 ng/mL (50-75 nmol/L)Sufficiency: 30-100 ng/mL (75-250 nmol/L)Toxicity: >100 ng/mL (>250 nmol/L) White blood cell (WBC) count Ordered By: Will Lim on 05-29-2024 WBC (Bld) [#/Vol] 4.5 10*3/uL 4.4-11.0 [facility] .Auto Diffon 05-23-2024 Basophil, Absolute 0.1 10 3/mcL Normal 0.0-0.3 [facility] Comment on above: Performed By: #### G FR, CMP, CBC, LD, ADIFF, ANEU #### [address] [address] Basophils/100 WBC (Bld) 1.0 % Normal 0.0-2.5 [facility] Comment on above: Performed By: #### G FR, CMP, CBC, LD, ADIFF, ANEU #### [address] [address] Eosinophil, Absolute 0.1 10 3/mcL Normal 0.0-0.7 [facility] Comment on above: Performed By: #### G FR, CMP, CBC, LD, ADIFF, ANEU #### [address] [address] Eosinophils/100 WBC (Bld) 2.6 % Normal 0.0-6.0 [facility] Comment on above: Performed By: #### G FR, CMP, CBC, LD, ADIFF, ANEU #### [address] [address] Lymphocyte, Absolute 1.1 10 3/mcL Normal 0.9-4.3 [facility] Comment on above: Performed By: #### G FR, CMP, CBC, LD, ADIFF, ANEU #### [address] [address] Lymphocytes/100 WBC (Bld) 21.0 % Normal 20.0-40.0 [facility] Comment on above: Performed By: #### G FR, CMP, CBC, LD, ADIFF, ANEU #### [address] [address] Monocyte, Absolute 0.7 10 3/mcL Normal 0.1-1.4 [facility] Comment on above: Performed By: #### G FR, CMP, CBC, LD, ADIFF, ANEU #### [address] [address] Monocytes/100 WBC (Bld) 13.6 % High 2.0-13.0 [facility] Comment on above: Performed By: #### G FR, CMP, CBC, LD, ADIFF, ANEU #### [address] [address] Neutrophils/100 WBC (Bld) 61.8 % Normal 50.0-75.0 [facility] Comment on above: Performed By: #### G FR, CMP, CBC, LD, ADIFF, ANEU #### [address] [address] .GFRon 05-23-2024 Estimated Glomerular Filtration Rate 79 ml/min/1.73sqm Normal [facility] Comment on above: Result Comment: Stages [...] FR, CMP, CBC, LD, ADIFF, ANEU #### [place] [id number] .NEUABSon 05-23-2024 Neutrophil, Absolute 3.1 10 3/mcL Normal 2.3-8.1 [facility] Comment on above: Performed By: #### G FR, CMP, CBC, LD, ADIFF, ANEU #### [place] [address] CBCon 05-23-2024 Erythrocyte distribution width (RBC) [Ratio] 13.3 % Normal 11.5-15.5 [facility] Comment on above: Performed By: #### G FR, CMP, CBC, LD, ADIFF, ANEU #### [place] [address] Hematocrit (Bld) [Volume fraction] 43.0 % Normal 34.0-46.0 [facility] Comment on above: Performed By: #### G FR, CMP, CBC, LD, ADIFF, ANEU #### [place] [address] Hgb 14.9 G/dL Normal 12.0-16.0 [facility] Comment on above: Performed By: #### G FR, CMP, CBC, LD, ADIFF, ANEU #### [place] [address] MCH (RBC) [Entitic mass] 32.9 pg Normal 27.0-33.0 [facility] Comment on above: Performed By: #### G FR, CMP, CBC, LD, ADIFF, ANEU #### [place] [address] MCHC 34.7 G/dL Normal 32.0-36.0 [facility] Comment on above: Performed By: #### G FR, CMP, CBC, LD, ADIFF, ANEU #### [place] [address] MCV (RBC) [Entitic vol] 94.9 fL Normal 80.0-99.0 [facility] Comment on above: Performed By: #### G FR, CMP, CBC, LD, ADIFF, ANEU #### [place] [address] Platelet 197 10 3/mcL Normal 150-450 [facility] Comment on above: Performed By: #### G FR, CMP, CBC, LD, ADIFF, ANEU #### [place] [address] Platelet mean volume (Bld) [Entitic vol] 7.1 fL Normal 6.6-10.5 [facility] Comment on above: Performed By: #### G FR, CMP, CBC, LD, ADIFF, ANEU #### [place] [address] RBC 4.53 10 6/mcL Normal 4.10-5.30 [facility] Comment on above: Performed By: #### G FR, CMP, CBC, LD, ADIFF, ANEU #### [place] [address] WBC 5.1 10 3/mcL Normal 4.5-10.8 [facility] Comment on above: Performed By: #### G FR, CMP, CBC, LD, ADIFF, ANEU #### [place] [address] CMPon 05-23-2024 Albumin Level 3.9 G/dL Normal 3.2-4.8 [facility] Comment on above: Performed By: #### G FR, CMP, CBC, LD, ADIFF, ANEU #### [place] [address] Albumin/Globulin [Mass ratio] 1.3 {ratio} Normal 0.9-1.6 [facility] Comment on above: Performed By: #### G FR, CMP, CBC, LD, ADIFF, ANEU #### [place] [address] ALP [Catalytic activity/Vol] 92 U/L Normal 38-126 [facility] Comment on above: Performed By: #### G FR, CMP, CBC, LD, ADIFF, ANEU #### [place] [address] ALT [Catalytic activity/Vol] 29 U/L Normal 10-49 [facility] Comment on above: Performed By: #### G FR, CMP, CBC, LD, ADIFF, ANEU #### [address] [address] AST [Catalytic activity/Vol] 31 U/L Normal 8-34 [facility] Comment on above: Performed By: #### G FR, CMP, CBC, LD, ADIFF, ANEU #### [address] [address] Bili Total 0.70 mg/dL Normal 0.20-1.20 [facility] Comment on above: Result Comment: Use of this assay is not recommended for patients undergoing treatment with eltrombopag due to the potential for falsely elevated results. Performed By: #### G FR, CMP, CBC, LD, ADIFF, ANEU #### [address] [address] BUN/Creatinine Ratio 11.4 ratio Normal 10.0-22.0 [facility] Comment on above: Performed By: #### G FR, CMP, CBC, LD, ADIFF, ANEU #### [address] [address] Calcium [Mass/Vol] 9.3 mg/dL Normal 8.7-10.4 [facility] Comment on above: Performed By: #### G FR, CMP, CBC, LD, ADIFF, ANEU #### [address] [address] Chloride [Moles/Vol] 107 mmol/L Normal 98-110 [facility] Comment on above: Performed By: #### G FR, CMP, CBC, LD, ADIFF, ANEU #### [address] [address] CO2 [Moles/Vol] 28 mmol/L Normal 22-32 [facility] Comment on above: Performed By: #### G FR, CMP, CBC, LD, ADIFF, ANEU #### [address] [address] Creatinine [Mass/Vol] 0.79 mg/dL Normal 0.50-1.20 [facility] Comment on above: Result Comment: Test ing performed on Cyanogen analyzer using enzymatic creatinine methodology. Performed By: #### G FR, CMP, CBC, LD, ADIFF, ANEU #### [address] [address] Electrolyte Balance 3.0 mEq/L Low 4.0-15.0 [facility] Comment on above: Performed By: #### G FR, CMP, CBC, LD, ADIFF, ANEU #### [address] [address] Globulin 2.9 G/dL Normal 1.5-3.8 [facility] Comment on above: Performed By: #### G FR, CMP, CBC, LD, ADIFF, ANEU #### [address] [address] Glucose [Mass/Vol] 116 mg/dL High 82-115 [facility] Comment on above: Performed By: #### G FR, CMP, CBC, LD, ADIFF, ANEU #### [address] [address] Potassium [Moles/Vol] 3.9 mmol/L Normal 3.5-5.0 [facility] Comment on above: Performed By: #### G FR, CMP, CBC, LD, ADIFF, ANEU #### [address] [address] Sodium [Moles/Vol] 138 mmol/L Normal 136-145 [facility] Comment on above: Performed By: #### G FR, CMP, CBC, LD, ADIFF, ANEU #### [address] [address] Total Protein 6.8 G/dL Normal 5.7-8.2 [facility] Comment on above: Performed By: #### G FR, CMP, CBC, LD, ADIFF, ANEU #### [address] [address] Urea nitrogen [Mass/Vol] 9.0 mg/dL Normal 8.0-22.0 [facility] Comment on above: Performed By: #### G FR, CMP, CBC, LD, ADIFF, ANEU #### [place] [address] LABORATORYOrdered By: SYSTEM SYSTEM on 05-23-2024 Albumin BCP dye [Mass/Vol] 3.9 G/dL Normal 3.2 - 4.8 G/dL ADM SS Albumin/Globulin [Mass ratio] 1.3 {ratio} Normal 0.9 - 1.6 ratio AH ADM SS ALP [Catalytic activity/Vol] 92 U/L Normal 38 - 126 U/L AH [...] 0.70 mg/dL Normal 0.20 - 1.20 mg/dL AH [...] 0 mEq/L AH ADM SS CO2 [Moles/Vol] 28 mmol/L Normal 22 - 32 mEq/L AH ADM SS Creatinine [Mass/Vol] 0.79 mg/dL Normal 0.50 - 1.20 mg/dL AH ADM SS Comment on above: Interpretive Data: T esting performed on Cyanogen analyzer using enzymatic creatinine methodology. Electrolyte Balance 3.0 mEq/L Low 4.0 - 15 .0 mEq/L AH ADM [...] 43.0 % Normal 34.0 - 46.0 % Workflow [...] 3.1 103/mcL Normal 2.3 - 8.1 10^3/mcL Workflow SS Neutrophils/100 WBC (Bld) 61.8 % Normal 50.0 - 75.0 % Workflow SS Platelet mean volume (Bld) [Entitic vol] 7.1 fL Normal 6.6 - 10.5 fL Workflow SS Platelets (Bld) [#/Vol] 197 103/mcL Normal 150 - 450 10^3/mcL Workflow SS Potassium [Moles/Vol] 3.9 mmol/L Normal 3.5 - 5.0 mEq/L ADM SS Protein [Mass/Vol] 6.8 G/dL Normal 5.7 - 8.2 G/dL ADM SS RBC (Bld) [#/Vol] 4.53 106/mcL Normal 4.10 - 5.3 0 10^6/mcL Workflow SS Sodium [Moles/Vol] 138 mmol/L Normal 136 - 145 mEq/L ADM SS Urea nitrogen [Mass/Vol] 9.0 mg/dL Normal 8.0 - 22.0 mg/dL ADM SS Urea nitrogen/Creatinine [Mass ratio] 11.4 ratio Normal 10.0 - 22.0 ratio ADM SS WBC (Bld) [#/Vol] 5.1 103/mcL Normal 4.5 - 10.8 10^3/mcL Workflow SS LDHon 05-23-2024 LDH 195 U/L Normal 120-246 [facility] Comment on above: Performed By: #### G FR, CMP, CBC, LD, ADIFF, ANEU #### [place] [address] MRI BRAIN W/ + W/O CONTRASTo n [...] 05/14/2024 4:15:09 PM Ordering Provider: CLINTON GILBERT [facility] Urine Cultureon 04-28-2024 URC Mixed Gram Positive Organisms Laie Count 11,000-25,000 MIXC Mixed contaminants. Submit a new specimen if indicated. Normal [facility] Comment on above: Performed By: #### L 501.3620, L500.2500, L100.0100, L3600.5100, L501.4020 #### [facility] [address] [place], [address] Absolute neutrophil countOrd ered By: Will Lim on 04-26-2024 Neutrophils (Bld) [#/Vol] 3.6 10*3/uL 2.0-7.7 [facility] BUN/creatinine ratioOrdered By: Will Lim on 04-26-2024 Urea nitrogen/Creatinine [Mass ratio] 11.6 mg/mg 10-20 [facility] Basophil percentageOrdered B y: Will Lim on 04-26-2024 Basophils/100 WBC (Bld) 0.6 % 0-1 [facility] Bilirubin, totalOrdered By: Will Lim on 04-26-2024 Bilirubin [Mass/Vol] 0.86 mg/dL 0.00-1.30 [facility] Brain/Head without Contrasto n 04-26-2024 Brain/Head without Contrast [facility] Imaging Services [address] [place] [address] Brain/Head without Contrast MR#: [id number] Acct: [id number] Name: TERENCE VALDIVIA Rep #: [id number] : [id number] F [id number] From: Aamir frank MD PCP: Dr. Will Lim MD Status: REG CLI Study: Brain/Head without Contrast Date of Exam: 04/01 09/21 Exam# [id number] Ordering Dr: Will Lim MD EXAM: BRAIN/HEAD [...] mass lesion or mass effect. Reading Location: [id number] CC: Dr. Will Lim MD [employer] Teacher: Signed Normal [facility] CBC W/Diff, Automatedon 04-01 Absolute Lymph 0.63 X10 3/uL Low 0.83-4.51 [facility] Comment on above: Performed By: #### L 100.0100, L501.5200, L500.2500, L501.6710 #### [facility] [address] [place], [address] Absolute Neut 3.6 X10 3/uL Normal 2.0-7.7 [facility] Comment on above: Performed By: #### L 100.0100, L501.5200, L500.2500, L501.6710 #### [facility] [address] [place], [address] Basophils/100 WBC (Bld) 0.6 % Normal 0-1 [facility] Comment on above: Performed By: #### L 100.0100, L501.5200, L500.2500, L501.6710 #### [facility] [address] [place], [address] Eosinophils/100 WBC (Bld) 2.8 % Normal 0-5 [facility] Comment on above: Performed By: #### L 100.0100, L501.5200, L500.2500, L501.6710 #### [facility] [address] [place], [address] Erythrocyte distribution width (RBC) [Ratio] 12.9 % Normal 11.6-14.6 [facility] Comment on above: Performed By: #### L 100.0100, L501.5200, L500.2500, L501.6710 #### [facility] [address] [place], [address] Hematocrit (Bld) [Volume fraction] 44.4 % Normal 37-47 [facility] Comment on above: Performed By: #### L 100.0100, L501.5200, L500.2500, L501.6710 #### [facility] [address] [place], [address] Hemoglobin (Bld) [Mass/Vol] 15.3 g/dL High 12.0-15.0 [facility] Comment on above: Performed By: #### L 100.0100, L501.5200, L500.2500, L501.6710 #### [facility] [address] [place], [address] IG% 0.200 Normal 0.0-0.9 [facility] Comment on above: Result Comment: IG% - Immature Granulocytes (promyelocytes, myelocytes and metamyelocytes) > 1% indicates that a LEFT SHIFT is Present. Performed By: #### L 100.0100, L501.5200, L500.2500, L501.6710 #### [facility] [address] [place], [address] Lymphocytes/100 WBC (Bld) 12.8 % Low 19-41 [facility] Comment on above: Performed By: #### L 100.0100, L501.5200, L500.2500, L501.6710 #### [facility] [address] [place], [address] MCH (RBC) [Entitic mass] 32.7 pg High 27.0-32.0 [facility] Comment on above: Performed By: #### L 100.0100, L501.5200, L500.2500, L501.6710 #### [facility] [address] [place], [address] MCHC (RBC) [Mass/Vol] 34.5 g/dL Normal 32-36 [facility] Comment on above: Performed By: #### L 100.0100, L501.5200, L500.2500, L501.6710 #### [facility] [address] [place], [address] MCV (RBC) [Entitic vol] 94.9 fL Normal 81-99 [facility] Comment on above: Performed By: #### L 100.0100, L501.5200, L500.2500, L501.6710 #### [facility] [address] [place], [address] Monocytes/100 WBC (Bld) 10.5 % High 0-10 [facility] Comment on above: Performed By: #### L 100.0100, L501.5200, L500.2500, L501.6710 #### [facility] [address] [place], [address] Neutrophils/100 WBC (Bld) 73.1 % High 47-70 [facility] Comment on above: Performed By: #### L 100.0100, L501.5200, L500.2500, L501.6710 #### [facility] [address] [place], [address] Nucleated RBC (Bld) [#/Vol] 0 10*3/uL Normal 0-5 [facility] Comment on above: Performed By: #### L 100.0100, L501.5200, L500.2500, L501.6710 #### [facility] [address] [place], [address] Platelet mean volume (Bld) [Entitic vol] 8.6 fL Normal 6.2-12.0 [facility] Comment on above: Performed By: #### L 100.0100, L501.5200, L500.2500, L501.6710 #### [facility] [address] [place], [address] Platelets (Bld) [#/Vol] 235 10*3/uL Normal 150-450 [facility] Comment on above: Performed By: #### L 100.0100, L501.5200, L500.2500, L501.6710 #### [facility] [address] [place], [address] RBC (Bld) [#/Vol] 4.68 10*6/uL Normal 4.2-5.4 [facility] Comment on above: Performed By: #### L 100.0100, L501.5200, L500.2500, L501.6710 #### [facility] [address] [place], [address] RDW SD 44.6 fl High 35.1-43.9 [facility] Comment on above: Performed By: #### L 100.0100, L501.5200, L500.2500, L501.6710 #### [facility] [address] [place], [address] WBC (Bld) [#/Vol] 4.9 10*3/uL Normal 4.4-11.0 [facility] Comment on above: Performed By: #### L 100.0100, L501.5200, L500.2500, L501.6710 #### [facility] [address] [place], [address] Carbon dioxide measurementOr dered By: Will Lim on 04-26-2024 CO2 [Moles/Vol] 24.2 mmol/L 22.0-29.0 [facility] Chloride measurementOrdered By: Will Lim on 04-26-2024 Chloride [Moles/Vol] 103 mmol/L 96-108 [facility] Comprehensive Metabolic Prof ilon 04-26-2024 Albumin [Mass/Vol] 4.4 g/dL Normal 3.4-4.8 [facility] Comment on above: Performed By: #### L 100.0100, L501.5200, L500.2500, L501.6710 #### [facility] [address] [place], [address] Albumin/Globulin [Mass ratio] 1.3 {ratio} Normal 0.9-2.4 [facility] Comment on above: Performed By: #### L 100.0100, L501.5200, L500.2500, L501.6710 #### [facility] [address] [place], [address] ALK PHOS 108 U/L High 35-104 [facility] Comment on above: Performed By: #### L 100.0100, L501.5200, L500.2500, L501.6710 #### [facility] [address] [place], [address] ALT [Catalytic activity/Vol] 34 U/L Normal <=34 [facility] Comment on above: Performed By: #### L 100.0100, L501.5200, L500.2500, L501.6710 #### [facility] [address] [place], [address] Anion gap [Moles/Vol] 13 mmol/L Normal 5-15 [facility] Comment on above: Performed By: #### L 100.0100, L501.5200, L500.2500, L501.6710 #### [facility] [address] [place], [address] AST [Catalytic activity/Vol] 39 U/L High <=31 [facility] Comment on above: Result Comment: Hemo lysis present, Results??could be affected. ?? Performed By: #### L 100.0100, L501.5200, L500.2500, L501.6710 #### [facility] [address] [place], [address] Bilirubin [Mass/Vol] 0.86 mg/dL Normal 0.00-1.30 [facility] Comment on above: Performed By: #### L 100.0100, L501.5200, L500.2500, L501.6710 #### [facility] [address] [place], [address] BUN/CRE 11.6 RATIO Normal 10-20 [facility] Comment on above: Performed By: #### L 100.0100, L501.5200, L500.2500, L501.6710 #### [facility] [address] [place], [address] Calcium [Mass/Vol] 10.3 mg/dL Normal 7.6-11.0 [facility] Comment on above: Performed By: #### L 100.0100, L501.5200, L500.2500, L501.6710 #### [facility] [address] [place], [address] Chloride [Moles/Vol] 103 mmol/L Normal 96-108 [facility] Comment on above: Performed By: #### L 100.0100, L501.5200, L500.2500, L501.6710 #### [facility] [address] [place], [address] CO2 [Moles/Vol] 24.2 mmol/L Normal 22.0-29.0 [facility] Comment on above: Performed By: #### L 100.0100, L501.5200, L500.2500, L501.6710 #### [facility] [address] [place], [address] Creatinine [Mass/Vol] 1.0 mg/dL Normal 0.6-1.0 [facility] Comment on above: Performed By: #### L 100.0100, L501.5200, L500.2500, L501.6710 #### [facility] [address] [place], [address] GFR/1.73 sq M.predicted among non-blacks MDRD (S/P/Bld) [Vol rate/Area] 61 mL/min/{1.73_m2} Normal >60 [facility] Comment on above: Result Comment: mL/m in/1.73m2 CKD-EPI Creatinine Equation (2020) Performed By: #### L 100.0100, L501.5200, L500.2500, L501.6710 #### [facility] [address] [place], [address] Globulin (S) [Mass/Vol] 3.3 g/dL Normal 2.2-4.2 [facility] Comment on above: Performed By: #### L 100.0100, L501.5200, L500.2500, L501.6710 #### [facility] [address] [place], [address] Glucose [Mass/Vol] 143 mg/dL High 70-99 [facility] Comment on above: Performed By: #### L 100.0100, L501.5200, L500.2500, L501.6710 #### [facility] [address] [place], [address] Potassium [Moles/Vol] 3.9 mmol/L Normal 3.3-5.1 [facility] Comment on above: Result Comment: Hemo lysis present, Results??could be affected. ?? Performed By: #### L 100.0100, L501.5200, L500.2500, L501.6710 #### [facility] [address] [place], [address] Sodium [Moles/Vol] 140 mmol/L Normal 133-145 [facility] Comment on above: Performed By: #### L 100.0100, L501.5200, L500.2500, L501.6710 #### [facility] [address] [place], [address] T PROT 7.8 g/dL Normal 5.9-8.4 [facility] Comment on above: Performed By: #### L 100.0100, L501.5200, L500.2500, L501.6710 #### [facility] [address] [place], [address] Urea nitrogen [Mass/Vol] 11 mg/dL Normal 4-19 [facility] Comment on above: Performed By: #### L 100.0100, L501.5200, L500.2500, L501.6710 #### [facility] [address] [place], [address] Creatinine [Moles/Vol]Ordere d By: Will Lim on 04-26-2024 Creatinine [Mass/Vol] 1.0 mg/dL 0.6-1.0 [facility] Eosinophil percentageOrdered By: Will Lim on 04-26-2024 Eosinophils/100 WBC (Bld) 2.8 % 0-5 [facility] Erythrocyte distribution wid th ratioOrdered By: Will Raphael on 04-26-2024 Erythrocyte distribution width (RBC) [Ratio] 12.9 % 11.6-14.6 [facility] Erythrocyte distribution wid th standard deviationOrdered By: [facility] Erythrocyte distribution width (RBC) [Entitic vol] 44.6 fL High 35.1-43.9 [facility] GFR/1.73 sq M.predicted brianna g non-blacks MDRD (S/P/Bld) [Vol rate/Area]Ordered By: Will Lim on 04-26-2024 Estimated GFR (MDRD) Non-Af Amer 61 >60 [facility] Comment on above: mL/min/1.73m2 CKD-EP I Creatinine Equation (2020) Hematocrit Auto (Bld) [Volum e fraction]Ordered By: Will Lim 04-26-2024 Hematocrit (Bld) [Volume fraction] 44.4 % 37-47 [facility] Hemoglobin measurementOrdere d By: Will Lim 04-26-2024 Hemoglobin (Bld) [Mass/Vol] 15.3 g/dL High 12.0-15.0 [facility] Immature granulocytes/100 WB C Auto (Bld)Ordered By: Will Lim 04-26-2024 Immature granulocytes/100 WBC (Bld) 0.200 % 0.0-0.9 [facility] Comment on above: IG% - Immature Granu locytes (promyelocytes, myelocytes and metamyelocytes) > 1% indicates that a LEFT SHIFT is Present. Laboratory - Chemistry and C hemistry - challengeOrdered By: Will Lim 04-26-2024 AST [Catalytic activity/Vol] 39 U/L High <32 [facility] Comment on above: Hemolysis present, R esults could be affected. Lymphocytes Auto (Unsp spec) [#/Vol]Ordered By: Will Lim 04-26-2024 Lymphocytes (Bld) [#/Vol] 0.63 10*3/uL Low 0.83-4.51 [facility] Lymphocytes/100 WBC Auto (Un sp spec)Ordered By: Will Lim on 04-26-2024 Lymphocytes/100 WBC (Bld) 12.8 % Low 19-41 [facility] MCV (mean corpuscular volume ) determinationOrdered By: Will Lim on 04-26-2024 MCV (RBC) [Entitic vol] 94.9 fL 81-99 [facility] Mean corpuscular hemoglobin (MCH) determinationOrdered By: Will Lim on 04-26-2024 MCH (RBC) [Entitic mass] 32.7 pg High 27.0-32.0 [facility] Mean corpuscular hemoglobin concentration (MCHC) determinationOrdered By: Will Lim on 04-26-2024 MCHC (RBC) [Mass/Vol] 34.5 g/dL 32-36 [facility] Mean platelet volume determi nationOrdered By: Will Lim on 04-26-2024 Platelet mean volume (Bld) [Entitic vol] 8.6 fL 6.2-12.0 [facility] Monocyte percentageOrdered B y: Will Lim on 04-26-2024 Monocytes/100 WBC (Bld) 10.5 % High 0-10 [facility] Neutrophil percentageOrdered By: Will Lim on 04-26-2024 Neutrophils/100 WBC (Bld) 73.1 % High 47-70 [facility] Nucleated red blood cell per centageOrdered By: Will Lim on 04-26-2024 Nucleated RBC/100 WBC (Bld) [Ratio] 0 % 0-5 [facility] Platelet countOrdered By: Toni Lim on 04-26-2024 Platelets (Bld) [#/Vol] 235 10*3/uL 150-450 [facility] RBC Auto (Bld) [#/Vol]Ordere d By: Will Lim on 04-26-2024 RBC (Bld) [#/Vol] 4.68 10*6/uL 4.2-5.4 [facility] Serum globulin measurementOr dered By: Will Lim 04-26-2024 Globulin (S) [Mass/Vol] 3.3 g/dL 2.2-4.2 [facility] Serum glucose measurement (m ass/volume)Ordered By: Will Lim on 04-26-2024 Glucose [Mass/Vol] 143 mg/dL High 70-99 [facility] Serum or plasma alanine mayes otransferase (ALT) measurementOrdered By: Will Lim on 04-26-2024 ALT [Catalytic activity/Vol] 34 U/L <35 [facility] Serum or plasma albumin olive urement (mass/volume)Ordered By: Will Lim on 04-26-2024 Albumin [Mass/Vol] 4.4 g/dL 3.4-4.8 [facility] Serum or plasma albumin/glob ulin mass ratioOrdered By: Will Lim 04-26-2024 Albumin/Globulin [Mass ratio] 1.3 {ratio} 0.9-2.4 [facility] Serum or plasma alkaline janis sphatase measurementOrdered By: Will Lim 04-26-2024 ALP [Catalytic activity/Vol] 108 U/L High 35-104 [facility] Serum or plasma anion gap de termination (moles/volume)Ordered By: Will Lim 04-26-2024 Anion gap [Moles/Vol] 13 mmol/L 5-15 [facility] Serum or plasma calcium olive urement (mass/volume)Ordered By: Will Lim 04-26-2024 Calcium [Mass/Vol] 10.3 mg/dL 7.6-11.0 [facility] Serum or plasma potassium me asurementOrdered By: Will Lim 04-26-2024 Potassium [Moles/Vol] 3.9 mmol/L 3.3-5.1 [facility] Comment on above: Hemolysis present, R esults could be affected. Serum or plasma sodium measu rement (moles/volume)Ordered By: Will Lim 04-26-2024 Sodium [Moles/Vol] 140 mmol/L 133-145 [facility] Serum or plasma urea nitroge n measurement (mass/volume)Ordered By: Will Lim 04-26-2024 Urea nitrogen [Mass/Vol] 11 mg/dL 4-19 [facility] Total proteinOrdered By: Will Lim 04-26-2024 Protein [Mass/Vol] 7.8 g/dL 5.9-8.4 [facility] Urine cultureOrdered By: Will Lim 04-26-2024 Bacteria identified Cx Nom (U) Positive Abnormal [facility] White blood cell (WBC) count Ordered By: Will Lim on 04-26-2024 WBC (Bld) [#/Vol] 4.9 10*3/uL 4.4-11.0 [facility] Absolute neutrophil countOrd ered By: Will Lim on 04-19-2024 Neutrophils (Bld) [#/Vol] 2.9 10*3/uL 2.0-7.7 [facility] Albumin to globulin ratioOrd ered By: Will Lim on 04-19-2024 Albumin/Globulin [Mass ratio] 0.9 {ratio} 0.9-2.4 [facility] Basophil percentageOrdered B y: Will Lim on 04-19-2024 Basophils/100 WBC (Bld) 0.9 % 0-1 [facility] Bilirubin, totalOrdered By: Will Lim on 04-19-2024 Bilirubin [Mass/Vol] 0.80 mg/dL 0.20-1.00 [facility] Comment on above: For patients on eltr ombopag therapy, use of Dimension [place] TBIL is not recommended. Blood urea nitrogen (BUN)/cr eatinine ratioOrdered By: Will Lim on 04-19-2024 Urea nitrogen/Creatinine [Mass ratio] 16.3 mg/mg 12-17 [facility] CBC W/Diff, Automatedon 04-01 Absolute Lymph 0.73 X10 3/uL Low 0.83-4.51 [facility] Comment on above: Performed By: #### L 500.4050, L100.0100, L501.9520, L500.4100, L501.9985 #### [facility] [address] [place], [place], [address] Absolute Neut 2.9 X10 3/uL Normal 2.0-7.7 [facility] Comment on above: Performed By: #### L 500.4050, L100.0100, L501.9520, L500.4100, L501.9985 #### [facility] [address] [place], [address] Basophils/100 WBC (Bld) 0.9 % Normal 0-1 [facility] Comment on above: Performed By: #### L 500.4050, L100.0100, L501.9520, L500.4100, L501.9985 #### [facility] [address] [place], [address] Eosinophils/100 WBC (Bld) 3.2 % Normal 0-5 [facility] Comment on above: Performed By: #### L 500.4050, L100.0100, L501.9520, L500.4100, L501.9985 #### [facility] [address] [place], [address] Erythrocyte distribution width (RBC) [Ratio] 13.1 % Normal 11.6-14.6 [facility] Comment on above: Performed By: #### L 500.4050, L100.0100, L501.9520, L500.4100, L501.9985 #### [facility] [address] [place], [address] Hematocrit (Bld) [Volume fraction] 40.1 % Normal 37-47 [facility] Comment on above: Performed By: #### L 500.4050, L100.0100, L501.9520, L500.4100, L501.9985 #### [facility] [address] [place], [address] Hemoglobin (Bld) [Mass/Vol] 13.8 g/dL Normal 12.0-15.0 [facility] Comment on above: Performed By: #### L 500.4050, L100.0100, L501.9520, L500.4100, L501.9985 #### [facility] [address] [place], [address] IG% 0.200 Normal 0.0-0.9 [facility] Comment on above: Result Comment: IG% - Immature Granulocytes (promyelocytes, myelocytes and metamyelocytes) > 1% indicates that a LEFT SHIFT is Present. Performed By: #### L 500.4050, L100.0100, L501.9520, L500.4100, L501.9985 #### [facility] [address] [place], [address] Lymphocytes/100 WBC (Bld) 16.5 % Low 19-41 [facility] Comment on above: Performed By: #### L 500.4050, L100.0100, L501.9520, L500.4100, L501.9985 #### [facility] [address] [place], [address] MCH (RBC) [Entitic mass] 32.5 pg High 27.0-32.0 [facility] Comment on above: Performed By: #### L 500.4050, L100.0100, L501.9520, L500.4100, L501.9985 #### [facility] [address] [place], [address] MCHC (RBC) [Mass/Vol] 34.4 g/dL Normal 32-36 [facility] Comment on above: Performed By: #### L 500.4050, L100.0100, L501.9520, L500.4100, L501.9985 #### [facility] [address] [place], [address] MCV (RBC) [Entitic vol] 94.4 fL Normal 81-99 [facility] Comment on above: Performed By: #### L 500.4050, L100.0100, L501.9520, L500.4100, L501.9985 #### [facility] [address] [place], [address] Monocytes/100 WBC (Bld) 13.3 % High 0-10 [facility] Comment on above: Performed By: #### L 500.4050, L100.0100, L501.9520, L500.4100, L501.9985 #### [facility] [address] [place], [address] Neutrophils/100 WBC (Bld) 65.9 % Normal 47-70 [facility] Comment on above: Performed By: #### L 500.4050, L100.0100, L501.9520, L500.4100, L501.9985 #### [facility] [address] [place], [address] Nucleated RBC (Bld) [#/Vol] 0 10*3/uL Normal 0-5 [facility] Comment on above: Performed By: #### L 500.4050, L100.0100, L501.9520, L500.4100, L501.9985 #### [facility] [address] [place], [address] Platelet mean volume (Bld) [Entitic vol] 9.3 fL Normal 6.2-12.0 [facility] Comment on above: Performed By: #### L 500.4050, L100.0100, L501.9520, L500.4100, L501.9985 #### [facility] [address] [place], [address] Platelets (Bld) [#/Vol] 242 10*3/uL Normal 150-450 [facility] Comment on above: Performed By: #### L 500.4050, L100.0100, L501.9520, L500.4100, L501.9985 #### [facility] [address] [place], [address] RBC (Bld) [#/Vol] 4.25 10*6/uL Normal 4.2-5.4 [facility] Comment on above: Performed By: #### L 500.4050, L100.0100, L501.9520, L500.4100, L501.9985 #### [facility] [address] [place], [address] RDW SD 44.8 fl High 35.1-43.9 [facility] Comment on above: Performed By: #### L 500.4050, L100.0100, L501.9520, L500.4100, L501.9985 #### [facility] [address] [place], [address] WBC (Bld) [#/Vol] 4.4 10*3/uL Normal 4.4-11.0 [facility] Comment on above: Performed By: #### L 500.4050, L100.0100, L501.9520, L500.4100, L501.9985 #### [facility] [address] [place], [address] Carbon dioxide measurementOr dered By: Will Lim on 04-19-2024 CO2 [Moles/Vol] 27.0 mmol/L 21.0-32.0 [facility] Chloride measurementOrdered By: Will Lim on 04-19-2024 Chloride [Moles/Vol] 105 mmol/L 98-107 [facility] Comprehensive Metabolic Prof ilon 04-19-2024 Albumin [Mass/Vol] 3.5 g/dL Normal 3.2-5.0 [facility] Comment on above: Performed By: #### L 501.3620, L500.2500, L100.0100, L3600.5100, L501.4020 #### [facility] [address] [place], [address] Albumin/Globulin [Mass ratio] 0.9 {ratio} Normal 0.9-2.4 [facility] Comment on above: Performed By: #### L 501.3620, L500.2500, L100.0100, L3600.5100, L501.4020 #### [facility] [address] [place], [address] ALK P 101 U/L Normal 45-117 [facility] Comment on above: Performed By: #### L 501.3620, L500.2500, L100.0100, L3600.5100, L501.4020 #### [facility] [address] [place], [address] ALT [Catalytic activity/Vol] 32 U/L Normal 13-56 [facility] Comment on above: Performed By: #### L 501.3620, L500.2500, L100.0100, L3600.5100, L501.4020 #### [facility] [address] [place], [address] AST [Catalytic activity/Vol] 22 U/L Normal 15-37 [facility] Comment on above: Performed By: #### L 501.3620, L500.2500, L100.0100, L3600.5100, L501.4020 #### [facility] [address] [place], [address] Bilirubin [Mass/Vol] 0.80 mg/dL Normal 0.20-1.00 [facility] Comment on above: Result Comment: For patients on eltrombopag therapy, use of Dimension [place] TBIL is not recommended. Performed By: #### L 501.3620, L500.2500, L100.0100, L3600.5100, L501.4020 #### [facility] [address] [place], [address] BUN/CRE 16.3 RATIO Normal 10-20 [facility] Comment on above: Performed By: #### L 501.3620, L500.2500, L100.0100, L3600.5100, L501.4020 #### [facility] [address] [place], [address] CA,Total 9.3 mg/dL Normal 8.5-10.1 [facility] Comment on above: Performed By: #### L 501.3620, L500.2500, L100.0100, L3600.5100, L501.4020 #### [facility] [address] [place], [address] Chloride [Moles/Vol] 105 mmol/L Normal 98-107 [facility] Comment on above: Performed By: #### L 501.3620, L500.2500, L100.0100, L3600.5100, L501.4020 #### [facility] [address] [place], [address] CO2 [Moles/Vol] 27.0 mmol/L Normal 21.0-32.0 [facility] Comment on above: Performed By: #### L 501.3620, L500.2500, L100.0100, L3600.5100, L501.4020 #### [facility] [address] [place], [address] Creatinine [Mass/Vol] 0.86 mg/dL Normal 0.55-1.02 [facility] Comment on above: Result Comment: The validity of the calculated GFR GFRAA in patients over 70 years has not been determined. Clinical correlation is essential. Performed By: #### L 501.3620, L500.2500, L100.0100, L3600.5100, L501.4020 #### [facility] [address] [place], [address] EST GFR - AA 83 mL/min Normal >60 [facility] Comment on above: Result Comment: Afri can Ugandan GFR Calc Performed By: #### L 501.3620, L500.2500, L100.0100, L3600.5100, L501.4020 #### [facility] [address] [place], [address] GAP 6 Normal 5-15 [facility] Comment on above: Performed By: #### L 501.3620, L500.2500, L100.0100, L3600.5100, L501.4020 #### [facility] [address] [place], [address] GFR/1.73 sq M.predicted among non-blacks MDRD (S/P/Bld) [Vol rate/Area] 69 mL/min/{1.73_m2} Normal >60 [facility] Comment on above: Result Comment: Non- GFR Calc Performed By: #### L 501.3620, L500.2500, L100.0100, L3600.5100, L501.4020 #### [facility] [address] [place], [address] Globulin (S) [Mass/Vol] 3.7 g/dL Normal 2.2-4.2 [facility] Comment on above: Performed By: #### L 501.3620, L500.2500, L100.0100, L3600.5100, L501.4020 #### [facility] [address] [place], [address] Glucose [Mass/Vol] 82 mg/dL Normal 74-106 [facility] Comment on above: Performed By: #### L 501.3620, L500.2500, L100.0100, L3600.5100, L501.4020 #### [facility] [address] [place], [address] Potassium [Moles/Vol] 3.8 mmol/L Normal 3.5-5.1 [facility] Comment on above: Performed By: #### L 501.3620, L500.2500, L100.0100, L3600.5100, L501.4020 #### [facility] [address] [place], [address] Sodium [Moles/Vol] 138 mmol/L Normal 136-145 [facility] Comment on above: Performed By: #### L 501.3620, L500.2500, L100.0100, L3600.5100, L501.4020 #### [facility] [address] [place], [address] T PROT 7.2 g/dL Normal 6.4-8.2 [facility] Comment on above: Performed By: #### L 501.3620, L500.2500, L100.0100, L3600.5100, L501.4020 #### [facility] [address] [place], [address] Urea nitrogen [Mass/Vol] 14 mg/dL Normal 7-18 [facility] Comment on above: Performed By: #### L 501.3620, L500.2500, L100.0100, L3600.5100, L501.4020 #### [facility] [address] [place], [address] Eosinophil percentageOrdered By: Will Lim on 04-19-2024 Eosinophils/100 WBC (Bld) 3.2 % 0-5 [facility] Erythrocyte distribution wid th ratioOrdered By: Will Lim on 04-19-2024 Erythrocyte distribution width (RBC) [Ratio] 13.1 % 11.6-14.6 [facility] Erythrocyte distribution wid th standard deviationOrdered By: Will Lim on 04-19-2024 Erythrocyte distribution width (RBC) [Entitic vol] 44.8 fL High 35.1-43.9 [facility] Estimated glomerular filtrat ion rate (GFR) AmericanOrdered By: Will Lim on 04-19-2024 Estimated GFR (MDRD) Amer 83 mL/min >60 [facility] Comment on above: GFR Calc Glomerular filtration rate ( GFR) estimationOrdered By: Will Lim 04-19-2024 Estimated GFR (MDRD) Non-Af Amer 69 mL/min >60 [facility] Comment on above: Non- GFR Calc Glucose measurementOrdered B y: Will Lim on 04-19-2024 Glucose [Mass/Vol] 82 mg/dL 74-106 [facility] Hematocrit Auto (Bld) [Volum e fraction]Ordered By: Wlil Lim on 04-19-2024 Hematocrit (Bld) [Volume fraction] 40.1 % 37-47 [facility] Hemoglobin A1con 04-19-2024 HbA1c (Bld) [Mass fraction] 6.4 % High 3.8-5.6 [facility] Comment on above: Result Comment: Norm al < 5.7 % Prediabetic 5.7 - 6.4 % Diabetic >or= 6.5 % Please note range changes. Performed By: #### L 501.3620, L500.2500, L100.0100, L3600.5100, L501.4020 #### [facility] [address] [place], [address] Hemoglobin A1c percentageOrd ered By: Will Lim on 04-19-2024 HbA1c (Bld) [Mass fraction] 6.4 % High 3.8-5.6 [facility] Comment on above: Normal < 5.7 % Predi abetic 5.7 - 6.4 % Diabetic >or= 6.5 % Please note range changes. Hemoglobin measurementOrdere d By: Will Lim on 04-19-2024 Hemoglobin (Bld) [Mass/Vol] 13.8 g/dL 12.0-15.0 [facility] High density lipoprotein (HD L) measurementOrdered By: Will Lim on 04-19-2024 Cholesterol in HDL [Mass/Vol] 57 mg/dL >40 [facility] Comment on above: The drugs N-Acetylcy steine and Metamizole may falsely depress this assay. Reference Range HDL <40 mg/dL Low HDL Cholesterol HDL >or= 60 mg/dL High HDL Cholesterol Immature granulocytes/100 WB C Auto (Bld)Ordered By: Will Lim on 04-19-2024 Immature granulocytes/100 WBC (Bld) 0.200 % 0.0-0.9 [facility] Comment on above: IG% - Immature Granu locytes (promyelocytes, myelocytes and metamyelocytes) > 1% indicates that a LEFT SHIFT is Present. Laboratory - Chemistry and C hemistry - challengeOrdered By: Will Lim on 04-19-2024 AST [Catalytic activity/Vol] 22 U/L 15-37 [facility] Lipid Profileon 04-19-2024 Cholesterol [Mass/Vol] 162 mg/dL Normal 200 [facility] Comment on above: Result Comment: <200 mg/dL Desirable 200-240 mg/dL Borderline >240 mg/dL High Risk Performed By: #### L 501.3620, L500.2500, L100.0100, L3600.5100, L501.4020 #### [facility] [address] [place], [address] Cholesterol in HDL [Mass/Vol] 57 mg/dL Normal [facility] Comment on above: Result Comment: The drugs N-Acetylcysteine and Metamizole may falsely depress this assay. Reference Range HDL <40 mg/dL Low HDL Cholesterol HDL >or= 60 mg/dL High HDL Cholesterol Performed By: #### L 501.3620, L500.2500, L100.0100, L3600.5100, L501.4020 #### [facility] [address] [place], [address] Cholesterol in LDL [Mass/Vol] 89 mg/dL Normal 0-130 [facility] Comment on above: Performed By: #### L 501.3620, L500.2500, L100.0100, L3600.5100, L501.4020 #### [facility] [address] [place], [address] Cholesterol in VLDL [Mass/Vol] 16 mg/dL Normal 5-40 [facility] Comment on above: Performed By: #### L 501.3620, L500.2500, L100.0100, L3600.5100, L501.4020 #### [facility] [address] [place], [address] Triglyceride [Mass/Vol] 78 mg/dL Normal [facility] Comment on above: Result Comment: The drugs N-Acetylcysteine and Metamizole may falsely depress this assay. Serum Triglycerides Reference Interval Normal <150 mg/dL Borderline high 150 - 199 mg/dL High 200 - 499 mg/dL Very High > or = 500 mg/dL Performed By: #### L 501.3620, L500.2500, L100.0100, L3600.5100, L501.4020 #### [facility] [address] [place], [address] Low density lipoprotein (LDL ) cholesterol measurementOrdered By: Will Lim on 04-19-2024 Cholesterol in LDL [Mass/Vol] 89 mg/dL 0-130 [facility] Lymphocytes Auto (Unsp spec) [#/Vol]Ordered By: Will Lim on 04-19-2024 Lymphocytes (Bld) [#/Vol] 0.73 10*3/uL Low 0.83-4.51 [facility] Lymphocytes/100 WBC Auto (Un sp spec)Ordered By: Will Lim on 04-19-2024 Lymphocytes/100 WBC (Bld) 16.5 % Low 19-41 [facility] MCV (mean corpuscular volume ) determinationOrdered By: Will Lim on 04-19-2024 MCV (RBC) [Entitic vol] 94.4 fL 81-99 [facility] Mean corpuscular hemoglobin (MCH) determinationOrdered By: Will Lim on 04-19-2024 MCH (RBC) [Entitic mass] 32.5 pg High 27.0-32.0 [facility] Mean corpuscular hemoglobin concentration (MCHC) determinationOrdered By: Will Lim 04-19-2024 MCHC (RBC) [Mass/Vol] 34.4 g/dL 32-36 [facility] Mean platelet volume determi nationOrdered By: Will Lim on 04-19-2024 Platelet mean volume (Bld) [Entitic vol] 9.3 fL 6.2-12.0 [facility] Monocyte percentageOrdered B y: Will Lim on 04-19-2024 Monocytes/100 WBC (Bld) 13.3 % High 0-10 [facility] Neutrophil percentageOrdered By: Will Lim on 04-19-2024 Neutrophils/100 WBC (Bld) 65.9 % 47-70 [facility] Nucleated red blood cell per centageOrdered By: Will Lim on 04-19-2024 Nucleated RBC/100 WBC (Bld) [Ratio] 0 % 0-5 [facility] Platelet countOrdered By: Toni Lim on 04-19-2024 Platelets (Bld) [#/Vol] 242 10*3/uL 150-450 [facility] Potassium measurementOrdered By: Will Lim on 04-19-2024 Potassium [Moles/Vol] 3.8 mmol/L 3.5-5.1 [facility] RBC Auto (Bld) [#/Vol]Ordere d By: Will Lim on 04-19-2024 RBC (Bld) [#/Vol] 4.25 10*6/uL 4.2-5.4 [facility] Serum anion gap measurementO rdered By: Will Lim on 04-19-2024 Anion gap [Moles/Vol] 6 mmol/L 5-15 [facility] Serum globulin measurementOr dered By: Will Lim on 04-19-2024 Globulin (S) [Mass/Vol] 3.7 g/dL 2.2-4.2 [facility] Serum or plasma alanine mayes otransferase (ALT) measurementOrdered By: Will Lim on 04-19-2024 ALT [Catalytic activity/Vol] 32 U/L 13-56 [facility] Serum or plasma albumin olive urement (mass/volume)Ordered By: Will Lim on 04-19-2024 Albumin [Mass/Vol] 3.5 g/dL 3.2-5.0 [facility] Serum or plasma alkaline janis sphatase measurementOrdered By: Will Lim 04-19-2024 ALP [Catalytic activity/Vol] 101 U/L 45-117 [facility] Serum or plasma calcium olive urement (mass/volume)Ordered By: Will Lim 04-19-2024 Calcium [Mass/Vol] 9.3 mg/dL 8.5-10.1 [facility] Serum or plasma cholesterol measurement (mass/volume)Ordered By: Will Lim on 04-19-2024 Cholesterol [Mass/Vol] 162 mg/dL <200 [facility] Comment on above: <200 mg/dL Desirable 200-240 mg/dL Borderline >240 mg/dL High Risk Serum or plasma creatinine m easurement (mass/volume)Ordered By: Will Lim on 04-19-2024 Creatinine [Mass/Vol] 0.86 mg/dL 0.55-1.02 [facility] Comment on above: The validity of the calculated GFR & GFRAA in patients over 70 years has not been determined. Clinical correlation is essential. Serum or plasma urea nitroge n measurement (mass/volume)Ordered By: Will Lim on 04-19-2024 Urea nitrogen [Mass/Vol] 14 mg/dL 7-18 [facility] Sodium levelOrdered By: Will Lim on 04-19-2024 Sodium [Moles/Vol] 138 mmol/L 136-145 [facility] TSH QnOrdered By: Will Lim o n 04-19-2024 Thyroid Stimulating Hormone (TSH) 0.399 uIU/mL 0.358-3.740 [facility] Thyroid Stim Hormone (TSH)on 04-19-2024 TSH 0.399 uIU/mL Normal 0.358-3.740 [facility] Comment on above: Performed By: #### L 501.3620, L500.2500, L100.0100, L3600.5100, L501.4020 #### [facility] [place] [address], [address] Total proteinOrdered By: Will Lim 04-19-2024 Protein [Mass/Vol] 7.2 g/dL 6.4-8.2 [facility] Triglycerides measurementOrd ered By: Will Lim 04-19-2024 Triglyceride [Mass/Vol] 78 mg/dL <199 [facility] Comment on above: The drugs N-Acetylcy steine and Metamizole may falsely depress this assay.Serum Triglycerides Reference Interval Normal <150 mg/dL Borderline high 150 - 199 mg/dL High 200 - 499 mg/dL Very High > or = 500 mg/dL Very low density lipoprotein (VLDL) cholesterol measurementOrdered By: Will Lim on 04-19-2024 VLDL Cholesterol 16 mg/dL 5-40 [facility] White blood cell (WBC) count Ordered By: Will Lim 04-19-2024 WBC (Bld) [#/Vol] 4.4 10*3/uL 4.4-11.0 [facility] Basic Metabolic Profile (BMP )on 04-16-2024 BUN/CRE 18.5 RATIO Normal 10-20 [facility] Comment on above: Order Comment: 1 Performed By: #### L 501.3620, L500.2500, L100.0100, L3600.5100, L501.4020 #### [facility] [address] [place], [address] CA,Total 9.6 mg/dL Normal 8.5-10.1 [facility] Comment on above: Order Comment: 1 Performed By: #### L 501.3620, L500.2500, L100.0100, L3600.5100, L501.4020 #### [facility] [address] [place], [address] Chloride [Moles/Vol] 104 mmol/L Normal 98-107 [facility] Comment on above: Order Comment: 1 Performed By: #### L 501.3620, L500.2500, L100.0100, L3600.5100, L501.4020 #### [facility] [address] [place], [address] CO2 [Moles/Vol] 27.0 mmol/L Normal 21.0-32.0 [facility] Comment on above: Order Comment: 1 Performed By: #### L 501.3620, L500.2500, L100.0100, L3600.5100, L501.4020 #### [facility] [address] [place], [address] Creatinine [Mass/Vol] 0.86 mg/dL Normal 0.55-1.02 [facility] Comment on above: Order Comment: 1 Result Comment: The validity of the calculated GFR GFRAA in patients over 70 years has not been determined. Clinical correlation is essential. Performed By: #### L 501.3620, L500.2500, L100.0100, L3600.5100, L501.4020 #### [facility] [address] [place], [address] EST GFR - AA 83 mL/min Normal >60 [facility] Comment on above: Order Comment: 1 Result Comment: Afri can Ug[place] GFR Calc Performed By: #### L 501.3620, L500.2500, L100.0100, L3600.5100, L501.4020 #### [facility] [address] [place], [address] GAP 8 Normal 5-15 [facility] Comment on above: Order Comment: 1 Performed By: #### L 501.3620, L500.2500, L100.0100, L3600.5100, L501.4020 #### [facility] [address] [place], [address] GFR/1.73 sq M.predicted among non-blacks MDRD (S/P/Bld) [Vol rate/Area] 68 mL/min/{1.73_m2} Normal >60 [facility] Comment on above: Order Comment: 1 Result Comment: Non- GFR Calc Performed By: #### L 501.3620, L500.2500, L100.0100, L3600.5100, L501.4020 #### [facility] [address] [place], [address] Glucose [Mass/Vol] 120 mg/dL High 74-106 [facility] Comment on above: Order Comment: 1 Result Comment: Fast ing Glucose result from 100 to 125 mg/dL suggests IMPAIRED HOMEOSTASIS per A.D.A. criteria. Performed By: #### L 501.3620, L500.2500, L100.0100, L3600.5100, L501.4020 #### [facility] [address] [place], [address] Potassium [Moles/Vol] 3.7 mmol/L Normal 3.5-5.1 [facility] Comment on above: Order Comment: 1 Performed By: #### L 501.3620, L500.2500, L100.0100, L3600.5100, L501.4020 #### [facility] [address] [place], [address] Sodium [Moles/Vol] 139 mmol/L Normal 136-145 [facility] Comment on above: Order Comment: 1 Performed By: #### L 501.3620, L500.2500, L100.0100, L3600.5100, L501.4020 #### [facility] [address] [place], [address] Urea nitrogen [Mass/Vol] 16 mg/dL Normal 7-18 [facility] Comment on above: Order Comment: 1 Performed By: #### L 501.3620, L500.2500, L100.0100, L3600.5100, L501.4020 #### [facility] [address] [place], [address] Blood urea nitrogen (BUN)/cr eatinine ratioOrdered By: Michaela Jaramillo on 04-16-2024 Urea nitrogen/Creatinine [Mass ratio] 18.5 mg/mg 10-20 [facility] Carbon dioxide measurementOr dered By: Michaela Jaramillo on 04-16-2024 CO2 [Moles/Vol] 27.0 mmol/L 21.0-32.0 [facility] Chloride measurementOrdered By: Michaela Jaramillo on 04-16-2024 Chloride [Moles/Vol] 104 mmol/L 98-107 [facility] Estimated glomerular filtrat ion rate (GFR) AmericanOrdered By: Michaela Jaramillo on 04-16-2024 Estimated GFR (MDRD) Amer 83 mL/min >60 [facility] Comment on above: GFR Calc Glomerular filtration rate ( GFR) estimationOrdered By: Michaela Jaramillo on 04-16-2024 Estimated GFR (MDRD) Non-Af Amer 68 mL/min >60 [facility] Comment on above: Non- GFR Calc Glucose measurementOrdered B y: Michaela Jaramillo on 04-16-2024 Glucose [Mass/Vol] 120 mg/dL High 74-106 [facility] Comment on above: Fasting Glucose resu lt from 100 to 125 mg/dL suggests IMPAIRED HOMEOSTASIS per A.D.A. criteria. Potassium measurementOrdered By: Michaela Jaramillo on 04-16-2024 Potassium [Moles/Vol] 3.7 mmol/L 3.5-5.1 [facility] Serum anion gap measurementO rdered By: Michaela Jaramillo on 04-16-2024 Anion gap [Moles/Vol] 8 mmol/L 5-15 [facility] Serum or plasma calcium olive urement (mass/volume)Ordered By: Michaela Jaramillo on 04-16-2024 Calcium [Mass/Vol] 9.6 mg/dL 8.5-10.1 [facility] Serum or plasma creatinine m easurement (mass/volume)Ordered By: Michaela Jaramillo on 04-16-2024 Creatinine [Mass/Vol] 0.86 mg/dL 0.55-1.02 [facility] Comment on above: The validity of the calculated GFR & GFRAA in patients over 70 years has not been determined. Clinical correlation is essential. Serum or plasma urea nitroge n measurement (mass/volume)Ordered By: Michaela Jaramillo on 04-16-2024 Urea nitrogen [Mass/Vol] 16 mg/dL 09-14 [facility] Sodium levelOrdered By: Jaycee Jaramillo on 04-16-2024 Sodium [Moles/Vol] 139 mmol/L 136-145 [facility] .Auto Diffon 04-05-2024 Basophil, Absolute 0.0 10 3/mcL Normal 0.0-0.3 [facility] Comment on above: Performed By: #### G FR, CMP, CBC, LD, ADIFF, ANEU #### [address] [address] Basophils/100 WBC (Bld) 0.5 % Normal 0.0-2.5 [facility] Comment on above: Performed By: #### G FR, CMP, CBC, LD, ADIFF, ANEU #### [address] [address] Eosinophil, Absolute 0.1 10 3/mcL Normal 0.0-0.7 [facility] Comment on above: Performed By: #### G FR, CMP, CBC, LD, ADIFF, ANEU #### [address] [address] Eosinophils/100 WBC (Bld) 2.1 % Normal 0.0-6.0 [facility] Comment on above: Performed By: #### G FR, CMP, CBC, LD, ADIFF, ANEU #### [address] [address] Lymphocyte, Absolute 0.9 10 3/mcL Normal 0.9-4.3 [facility] Comment on above: Performed By: #### G FR, CMP, CBC, LD, ADIFF, ANEU #### [address] [address] Lymphocytes/100 WBC (Bld) 13.2 % Low 20.0-40.0 [facility] Comment on above: Performed By: #### G FR, CMP, CBC, LD, ADIFF, ANEU #### [address] [address] Monocyte, Absolute 0.9 10 3/mcL Normal 0.1-1.4 [facility] Comment on above: Performed By: #### G FR, CMP, CBC, LD, ADIFF, ANEU #### [address] [address] Monocytes/100 WBC (Bld) 13.3 % High 2.0-13.0 [facility] Comment on above: Performed By: #### G FR, CMP, CBC, LD, ADIFF, ANEU #### [address] [address] Neutrophils/100 WBC (Bld) 70.9 % Normal 50.0-75.0 [facility] Comment on above: Performed By: #### G FR, CMP, CBC, LD, ADIFF, ANEU #### [address] [address] .GFRon 04-05-2024 Estimated Glomerular Filtration Rate 74 ml/min/1.73sqm Normal [facility] Comment on above: Result Comment: Stages [...] FR, CMP, CBC, LD, ADIFF, ANEU #### [address] [address] .NEUABSon 04-05-2024 Neutrophil, Absolute 5.0 10 3/mcL Normal 2.3-8.1 [facility] Comment on above: Performed By: #### G FR, CMP, CBC, LD, ADIFF, ANEU #### [place] [id number] CBCon 04-05-2024 Erythrocyte distribution width (RBC) [Ratio] 14.0 % Normal 11.5-15.5 [facility] Comment on above: Performed By: #### G FR, CMP, CBC, LD, ADIFF, ANEU #### [place] [address] Hematocrit (Bld) [Volume fraction] 39.0 % Normal 34.0-46.0 [facility] Comment on above: Performed By: #### G FR, CMP, CBC, LD, ADIFF, ANEU #### [place] [id number] Hgb 13.7 G/dL Normal 12.0-16.0 [facility] Comment on above: Performed By: #### G FR, CMP, CBC, LD, ADIFF, ANEU #### [place] [address] MCH (RBC) [Entitic mass] 33.5 pg High 27.0-33.0 [facility] Comment on above: Performed By: #### G FR, CMP, CBC, LD, ADIFF, ANEU #### [place] [address] MCHC 35.2 G/dL Normal 32.0-36.0 [facility] Comment on above: Performed By: #### G FR, CMP, CBC, LD, ADIFF, ANEU #### [place] [address] MCV (RBC) [Entitic vol] 95.0 fL Normal 80.0-99.0 [facility] Comment on above: Performed By: #### G FR, CMP, CBC, LD, ADIFF, ANEU #### [place] [address] Platelet 261 10 3/mcL Normal 150-450 [facility] Comment on above: Performed By: #### G FR, CMP, CBC, LD, ADIFF, ANEU #### [place] [address] Platelet mean volume (Bld) [Entitic vol] 7.1 fL Normal 6.6-10.5 [facility] Comment on above: Performed By: #### G FR, CMP, CBC, LD, ADIFF, ANEU #### [place] [address] RBC 4.10 10 6/mcL Normal 4.10-5.30 [facility] Comment on above: Performed By: #### G FR, CMP, CBC, LD, ADIFF, ANEU #### [place] [address] WBC 7.1 10 3/mcL Normal 4.5-10.8 [facility] Comment on above: Performed By: #### G FR, CMP, CBC, LD, ADIFF, ANEU #### [place] [address] CMPon 04-05-2024 Albumin Level 3.7 G/dL Normal 3.2-4.8 [facility] Comment on above: Performed By: #### G FR, CMP, CBC, LD, ADIFF, ANEU #### [address] [address] Albumin/Globulin [Mass ratio] 1.1 {ratio} Normal 0.9-1.6 [facility] Comment on above: Performed By: #### G FR, CMP, CBC, LD, ADIFF, ANEU #### [address] [address] ALP [Catalytic activity/Vol] 103 U/L Normal 38-126 [facility] Comment on above: Performed By: #### G FR, CMP, CBC, LD, ADIFF, ANEU #### [place] [id number] ALT [Catalytic activity/Vol] 30 U/L Normal 10-49 [facility] Comment on above: Performed By: #### G FR, CMP, CBC, LD, ADIFF, ANEU #### [place] [id number] AST [Catalytic activity/Vol] 19 U/L Normal 8-34 [facility] Comment on above: Performed By: #### G FR, CMP, CBC, LD, ADIFF, ANEU #### [place] [id number] Bili Total 0.70 mg/dL Normal 0.20-1.20 [facility] Comment on above: Result Comment: Use of this assay is not recommended for patients undergoing treatment with eltrombopag due to the potential for falsely elevated results. Performed By: #### G FR, CMP, CBC, LD, ADIFF, ANEU #### [place] [id number] BUN/Creatinine Ratio 21.7 ratio Normal 10.0-22.0 [facility] Comment on above: Performed By: #### G FR, CMP, CBC, LD, ADIFF, ANEU #### [address] [address] Calcium [Mass/Vol] 9.9 mg/dL Normal 8.7-10.4 [facility] Comment on above: Performed By: #### G FR, CMP, CBC, LD, ADIFF, ANEU #### [place] [address] Chloride [Moles/Vol] 105 mmol/L Normal 98-110 [facility] Comment on above: Performed By: #### G FR, CMP, CBC, LD, ADIFF, ANEU #### [address] [address] CO2 [Moles/Vol] 30 mmol/L Normal 22-32 [facility] Comment on above: Performed By: #### G FR, CMP, CBC, LD, ADIFF, ANEU #### [address] [address] Creatinine [Mass/Vol] 0.83 mg/dL Normal 0.50-1.20 [facility] Comment on above: Result Comment: Test ing performed on Cyanogen analyzer using enzymatic creatinine methodology. Performed By: #### G FR, CMP, CBC, LD, ADIFF, ANEU #### [address] [address] Electrolyte Balance 6.0 mEq/L Normal 4.0-15.0 [facility] Comment on above: Performed By: #### G FR, CMP, CBC, LD, ADIFF, ANEU #### [address] [address] Globulin 3.3 G/dL Normal 1.5-3.8 [facility] Comment on above: Performed By: #### G FR, CMP, CBC, LD, ADIFF, ANEU #### [address] [address] Glucose [Mass/Vol] 91 mg/dL Normal 82-115 [facility] Comment on above: Performed By: #### G FR, CMP, CBC, LD, ADIFF, ANEU #### [address] [address] Potassium [Moles/Vol] 4.0 mmol/L Normal 3.5-5.0 [facility] Comment on above: Performed By: #### G FR, CMP, CBC, LD, ADIFF, ANEU #### [address] [address] Sodium [Moles/Vol] 141 mmol/L Normal 136-145 [facility] Comment on above: Performed By: #### G FR, CMP, CBC, LD, ADIFF, ANEU #### [address] [address] Total Protein 7.0 G/dL Normal 5.7-8.2 [facility] Comment on above: Performed By: #### G FR, CMP, CBC, LD, ADIFF, ANEU #### [address] [address] Urea nitrogen [Mass/Vol] 18.0 mg/dL Normal 8.0-22.0 [facility] Comment on above: Performed By: #### G FR, CMP, CBC, LD, ADIFF, ANEU #### [address] [address] LABORATORYOrdered By: SYSTEM SYSTEM on 04-05-2024 Albumin [...] 0.3 10^3/mcL Workflow SS Basophils/100 WBC (Bld) 0.5 % Normal 0.0 - 2.5 % Workflow SS Bilirubin [Mass/Vol] 0.70 mg/dL Normal 0.20 - 1.20 mg/dL AH [...] 30 mmol/L Normal 22 - 32 mEq/L AH ADM SS Creatinine [Mass/Vol] 0.83 mg/dL Normal 0.50 - 1.20 mg/dL ADM SS Comment on above: Interpretive Data: T esting performed on Cyanogen analyzer using enzymatic creatinine methodology. Electrolyte Balance [...] 39.0 % Normal 34.0 - 46.0 % Workflow SS Hemoglobin (Bld) [Mass/Vol] 13.7 G/dL Normal 12.0 - 16.0 G/dL Workflow SS Lymphocytes (Bld) [#/Vol] 0.9 103/mcL Normal 0.9 - 4.3 10^3/mcL Workflow SS Lymphocytes/100 WBC (Bld) 13.2 % Low 20.0 - 40.0 % Workflow SS MCH (RBC) [Entitic mass] 33.5 pg High 27.0 - 33.0 pg Workflow SS MCHC 35.2 G/dL Normal 32.0 - 36.0 G/dL AH Workflow SS MCV (RBC) [Entitic vol] 95.0 fL Normal 80.0 - 99.0 fL AH Workflow SS Monocytes (Bld) [#/Vol] 0.9 103/mcL [...] 4.0 mmol/L Normal 3.5 - 5.0 mEq/L AH ADM SS Protein [Mass/Vol] 7.0 G/dL Normal 5.7 - 8.2 G/dL AH ADM SS RBC (Bld) [#/Vol] 4.10 106/mcL [...] 04-02-2024 Neutrophils (Bld) [#/Vol] 2.6 10*3/uL 2.0-7.7 [facility] Basic Metabolic Profile (BMP )on 04-02-2024 BUN/CRE 20.9 RATIO High 10-20 [facility] Comment on above: Order Comment: 207.1 Performed By: #### L 100.0100, L501.5200, L500.2500, L501.6710 #### [facility] [address] [place], [address] CA,Total 9.5 mg/dL Normal 8.5-10.1 [facility] Comment on above: Order Comment: 207.1 Performed By: #### L 100.0100, L501.5200, L500.2500, L501.6710 #### [facility] [address] [place], [address] Chloride [Moles/Vol] 105 mmol/L Normal 98-107 [facility] Comment on above: Order Comment: .1 Performed By: #### L 100.0100, L501.5200, L500.2500, L501.6710 #### [facility] [address] [place], [address] CO2 [Moles/Vol] 30.0 mmol/L Normal 21.0-32.0 [facility] Comment on above: Order Comment: .1 Performed By: #### L 100.0100, L501.5200, L500.2500, L501.6710 #### [facility] [address] [place], [address] Creatinine [Mass/Vol] 0.86 mg/dL Normal 0.55-1.02 [facility] Comment on above: Order Comment: 207.1 Result Comment: The validity of the calculated GFR GFRAA in patients over 70 years has not been determined. Clinical correlation is essential. Performed By: #### L 100.0100, L501.5200, L500.2500, L501.6710 #### [facility] [address] [place], [address] EST GFR - AA 83 mL/min Normal >60 [facility] Comment on above: Order Comment: 207.1 Result Comment: Afri can Ugandan GFR Calc Performed By: #### L 100.0100, L501.5200, L500.2500, L501.6710 #### [facility] [address] [place], [address] GAP 6 Normal 5-15 [facility] Comment on above: Order Comment: 207.1 Performed By: #### L 100.0100, L501.5200, L500.2500, L501.6710 #### [facility] [address] [place], [address] GFR/1.73 sq M.predicted among non-blacks MDRD (S/P/Bld) [Vol rate/Area] 69 mL/min/{1.73_m2} Normal >60 [facility] Comment on above: Order Comment: 207.1 Result Comment: Non- GFR Calc Performed By: #### L 100.0100, L501.5200, L500.2500, L501.6710 #### [facility] [address] [place], [address] Glucose [Mass/Vol] 99 mg/dL Normal 74-106 [facility] Comment on above: Order Comment: 207.1 Performed By: #### L 100.0100, L501.5200, L500.2500, L501.6710 #### [facility] [address] [place], [address] Potassium [Moles/Vol] 3.3 mmol/L Low 3.5-5.1 [facility] Comment on above: Order Comment: 207.1 Performed By: #### L 100.0100, L501.5200, L500.2500, L501.6710 #### [facility] [address] [place], [address] Sodium [Moles/Vol] 141 mmol/L Normal 136-145 [facility] Comment on above: Order Comment: 207.1 Performed By: #### L 100.0100, L501.5200, L500.2500, L501.6710 #### [facility] [address] [place], [address] Urea nitrogen [Mass/Vol] 18 mg/dL Normal 7-18 [facility] Comment on above: Order Comment: 207.1 Performed By: #### L 100.0100, L501.5200, L500.2500, L501.6710 #### [facility] [address] [place], [address] Basophil percentageOrdered B y: Michaela Jaramillo on 04-02-2024 Basophils/100 WBC (Bld) 0.7 % 0-1 [facility] Blood urea nitrogen (BUN)/cr eatinine ratioOrdered By: Michaela Jaramillo on 04-02-2024 Urea nitrogen/Creatinine [Mass ratio] 20.9 mg/mg High 10-20 [facility] CBC W/Diff, Automatedon 02-0 -2024 Absolute Lymph 0.90 X10 3/uL Normal 0.83-4.51 [facility] Comment on above: Order Comment: 207.1 Performed By: #### L 100.0100, L501.5200, L500.2500, L501.6710 #### [facility] [address] [place], [address] Absolute Neut 2.6 X10 3/uL Normal 2.0-7.7 [facility] Comment on above: Order Comment: 207.1 Performed By: #### L 100.0100, L501.5200, L500.2500, L501.6710 #### [facility] [address] [place], [address] Basophils/100 WBC (Bld) 0.7 % Normal 0-1 [facility] Comment on above: Order Comment: 207.1 Performed By: #### L 100.0100, L501.5200, L500.2500, L501.6710 #### [facility] [address] [place], [address] Eosinophils/100 WBC (Bld) 5.1 % High 0-5 [facility] Comment on above: Order Comment: .1 Performed By: #### L 100.0100, L501.5200, L500.2500, L501.6710 #### [facility] [address] [place], [address] Erythrocyte distribution width (RBC) [Ratio] 13.2 % Normal 11.6-14.6 [facility] Comment on above: Order Comment: 207.1 Performed By: #### L 100.0100, L501.5200, L500.2500, L501.6710 #### [facility] [address] [place], [address] Hematocrit (Bld) [Volume fraction] 39.2 % Normal 37-47 [facility] Comment on above: Order Comment: .1 Performed By: #### L 100.0100, L501.5200, L500.2500, L501.6710 #### [facility] [address] [place], [address] Hemoglobin (Bld) [Mass/Vol] 12.8 g/dL Normal 12.0-15.0 [facility] Comment on above: Order Comment: .1 Performed By: #### L 100.0100, L501.5200, L500.2500, L501.6710 #### [facility] [address] [place], [address] IG% 0.200 Normal 0.0-0.9 [facility] Comment on above: Order Comment: 207.1 Result Comment: IG% - Immature Granulocytes (promyelocytes, myelocytes and metamyelocytes) > 1% indicates that a LEFT SHIFT is Present. Performed By: #### L 100.0100, L501.5200, L500.2500, L501.6710 #### [facility] [address] [place], [address] Lymphocytes/100 WBC (Bld) 20.9 % Normal 19-41 [facility] Comment on above: Order Comment: 207.1 Performed By: #### L 100.0100, L501.5200, L500.2500, L501.6710 #### [facility] [address] [place], [address] MCH (RBC) [Entitic mass] 32.0 pg Normal 27.0-32.0 [facility] Comment on above: Order Comment: 207.1 Performed By: #### L 100.0100, L501.5200, L500.2500, L501.6710 #### [facility] [address] [place], [address] MCHC (RBC) [Mass/Vol] 32.7 g/dL Normal 32-36 [facility] Comment on above: Order Comment: 207.1 Performed By: #### L 100.0100, L501.5200, L500.2500, L501.6710 #### [facility] [address] [place], [address] MCV (RBC) [Entitic vol] 98.0 fL Normal 81-99 [facility] Comment on above: Order Comment: 207.1 Performed By: #### L 100.0100, L501.5200, L500.2500, L501.6710 #### [facility] [address] [place], [address] Monocytes/100 WBC (Bld) 13.3 % High 0-10 [facility] Comment on above: Order Comment: 207.1 Performed By: #### L 100.0100, L501.5200, L500.2500, L501.6710 #### [facility] [address] [place], [address] Neutrophils/100 WBC (Bld) 59.8 % Normal 47-70 [facility] Comment on above: Order Comment: 207.1 Performed By: #### L 100.0100, L501.5200, L500.2500, L501.6710 #### [facility] [address] [place], [address] Nucleated RBC (Bld) [#/Vol] 0 10*3/uL Normal 0-5 [facility] Comment on above: Order Comment: 207.1 Performed By: #### L 100.0100, L501.5200, L500.2500, L501.6710 #### [facility] [address] [place], [address] Platelet mean volume (Bld) [Entitic vol] 9.3 fL Normal 6.2-12.0 [facility] Comment on above: Order Comment: 207.1 Performed By: #### L 100.0100, L501.5200, L500.2500, L501.6710 #### [facility] [address] [place], [address] Platelets (Bld) [#/Vol] 243 10*3/uL Normal 150-450 [facility] Comment on above: Order Comment: 207.1 Performed By: #### L 100.0100, L501.5200, L500.2500, L501.6710 #### [facility] [address] [place], [address] RBC (Bld) [#/Vol] 4.00 10*6/uL Low 4.2-5.4 [facility] Comment on above: Order Comment: 207.1 Performed By: #### L 100.0100, L501.5200, L500.2500, L501.6710 #### [facility] [address] [place], [address] RDW SD 46.7 fl High 35.1-43.9 [facility] Comment on above: Order Comment: 207.1 Performed By: #### L 100.0100, L501.5200, L500.2500, L501.6710 #### [facility] [address] [place], [address] WBC (Bld) [#/Vol] 4.3 10*3/uL Low 4.4-11.0 [facility] Comment on above: Order Comment: 207.1 Performed By: #### L 100.0100, L501.5200, L500.2500, L501.6710 #### [facility] [address] [place], [address] Carbon dioxide measurementOr dered By: Michaela Jaramillo on 04-02-2024 CO2 [Moles/Vol] 30.0 mmol/L 21.0-32.0 [facility] Chloride measurementOrdered By: Michaela Jaramillo on 04-02-2024 Chloride [Moles/Vol] 105 mmol/L 98-107 [facility] Eosinophil percentageOrdered By: Michaela Jaramillo on 04-02-2024 Eosinophils/100 WBC (Bld) 5.1 % High 0-5 [facility] Erythrocyte distribution wid th ratioOrdered By: Michaela Jaramillo on 04-02-2024 Erythrocyte distribution width (RBC) [Ratio] 13.2 % 11.6-14.6 [facility] Erythrocyte distribution wid th standard deviationOrdered By: Michaela Jaramillo on 04-02-2024 Erythrocyte distribution width (RBC) [Entitic vol] 46.7 fL High 35.1-43.9 [facility] Estimated glomerular filtrat ion rate (GFR) AmericanOrdered By: Michaela Jaramillo on 04-02-2024 Estimated GFR (MDRD) Amer 83 mL/min >60 [facility] Comment on above: GFR Calc Glomerular filtration rate ( GFR) estimationOrdered By: Michaela Jaramillo on 04-02-2024 Estimated GFR (MDRD) Non-Af Amer 69 mL/min >60 [facility] Comment on above: Non- GFR Calc Glucose measurementOrdered B y: Michaela Jaramillo on 04-02-2024 Glucose [Mass/Vol] 99 mg/dL 74-106 [facility] Hematocrit Auto (Bld) [Volum e fraction]Ordered By: Michaela Jaramillo on 02-03-2025 Hematocrit (Bld) [Volume fraction] 39.2 % 37-47 [facility] Hemoglobin measurementOrdere d By: Michaela Jaramillo on 04-02-2024 Hemoglobin (Bld) [Mass/Vol] 12.8 g/dL 12.0-15.0 [facility] Immature granulocytes/100 WB C Auto (Bld)Ordered By: Michaela Jaramillo on 04-02-2024 Immature granulocytes/100 WBC (Bld) 0.200 % 0.0-0.9 [facility] Comment on above: IG% - Immature Granu locytes (promyelocytes, myelocytes and metamyelocytes) > 1% indicates that a LEFT SHIFT is Present. Lymphocytes Auto (Unsp spec) [#/Vol]Ordered By: Michaela Jaramillo on 04-02-2024 Lymphocytes (Bld) [#/Vol] 0.90 10*3/uL 0.83-4.51 [facility] Lymphocytes/100 WBC Auto (Un sp spec)Ordered By: Michaela Jaramillo on 04-02-2024 Lymphocytes/100 WBC (Bld) 20.9 % 19-41 [facility] MCV (mean corpuscular volume ) determinationOrdered By: Michaela Jaramillo on 04-02-2024 MCV (RBC) [Entitic vol] 98.0 fL 81-99 [facility] Mean corpuscular hemoglobin (MCH) determinationOrdered By: Michaela Jaramillo on 04-02-2024 MCH (RBC) [Entitic mass] 32.0 pg 27.0-32.0 [facility] Mean corpuscular hemoglobin concentration (MCHC) determinationOrdered By: Michaela Jaramillo on 04-02-2024 MCHC (RBC) [Mass/Vol] 32.7 g/dL 32-36 [facility] Mean platelet volume determi nationOrdered By: Michaela Jaramillo on 04-02-2024 Platelet mean volume (Bld) [Entitic vol] 9.3 fL 6.2-12.0 [facility] Monocyte percentageOrdered B y: Michaela Jaramillo on 04-02-2024 Monocytes/100 WBC (Bld) 13.3 % High 0-10 [facility] Neutrophil percentageOrdered By: Michaela Jaramillo on 04-02-2024 Neutrophils/100 WBC (Bld) 59.8 % 47-70 [facility] Nucleated red blood cell per centageOrdered By: Michaela Jaramillo on 04-02-2024 Nucleated RBC/100 WBC (Bld) [Ratio] 0 % 0-5 [facility] Platelet countOrdered By: Steven Jaramillo on 04-02-2024 Platelets (Bld) [#/Vol] 243 10*3/uL 150-450 [facility] Potassium measurementOrdered By: Michaela Jaramillo on 04-02-2024 Potassium [Moles/Vol] 3.3 mmol/L Low 3.5-5.1 [facility] RBC Auto (Bld) [#/Vol]Ordere d By: Michaela Jaramillo on 04-02-2024 RBC (Bld) [#/Vol] 4.00 10*6/uL Low 4.2-5.4 [facility] Serum anion gap measurementO rdered By: Michaela Jaramillo on 04-02-2024 Anion gap [Moles/Vol] 6 mmol/L 5-15 [facility] Serum or plasma calcium olive urement (mass/volume)Ordered By: Michaela Jaramillo on 04-02-2024 Calcium [Mass/Vol] 9.5 mg/dL 8.5-10.1 [facility] Serum or plasma creatinine m easurement (mass/volume)Ordered By: Michaela Jaramillo on 04-02-2024 Creatinine [Mass/Vol] 0.86 mg/dL 0.55-1.02 [facility] Comment on above: The validity of the calculated GFR & GFRAA in patients over 70 years has not been determined. Clinical correlation is essential. Serum or plasma urea nitroge n measurement (mass/volume)Ordered By: Michaela Jaramillo on 04-02-2024 Urea nitrogen [Mass/Vol] 18 mg/dL 7-18 [facility] Sodium levelOrdered By: Jaycee Jaramillo on 04-02-2024 Sodium [Moles/Vol] 141 mmol/L 136-145 [facility] White blood cell (WBC) count Ordered By: Michaela Jaramillo on 04-02-2024 WBC (Bld) [#/Vol] 4.3 10*3/uL Low 4.4-11.0 [facility] TSH QnOrdered By: Michaela rosales on 03-14-2024 Thyroid Stimulating Hormone (TSH) 6.850 uIU/mL High 0.358-3.740 [facility] Thyroid Stim Hormone (TSH)on 03-14-2024 TSH 6.850 uIU/mL High 0.358-3.740 [facility] Comment on above: Performed By: #### L 501.3620, L500.2500, L100.0100, L3600.5100, L501.4020 #### [facility] [address] [place], [address] MRI BRAIN W/ + W/O CONTRASTo n [...] 03/06/2024 1:53:41 PM Ordering Provider: CLINTON Danielle [facility] Absolute neutrophil countOrd ered By: Michaela Jaramillo on 03-05-2024 Neutrophils (Bld) [#/Vol] 3.4 10*3/uL 2.0-7.7 [facility] Basic Metabolic Profile (BMP )on 03-05-2024 BUN/CRE 14.9 RATIO Normal 10-20 [facility] Comment on above: Order Comment: 207.1 Performed By: #### L 100.0100, L501.5200, L500.2500, L501.6710 #### [facility] [address] [place], [address] CA,Total 9.1 mg/dL Normal 8.5-10.1 [facility] Comment on above: Order Comment: 207.1 Performed By: #### L 100.0100, L501.5200, L500.2500, L501.6710 #### [facility] [address] [place], [address] Chloride [Moles/Vol] 104 mmol/L Normal 98-107 [facility] Comment on above: Order Comment: 207.1 Performed By: #### L 100.0100, L501.5200, L500.2500, L501.6710 #### [facility] [address] [place], [address] CO2 [Moles/Vol] 28.0 mmol/L Normal 21.0-32.0 [facility] Comment on above: Order Comment: 207.1 Performed By: #### L 100.0100, L501.5200, L500.2500, L501.6710 #### [facility] [address] [place], [address] Creatinine [Mass/Vol] 0.87 mg/dL Normal 0.55-1.02 [facility] Comment on above: Order Comment: .1 Result Comment: The validity of the calculated GFR GFRAA in patients over 70 years has not been determined. Clinical correlation is essential. Performed By: #### L 100.0100, L501.5200, L500.2500, L501.6710 #### [facility] [address] [place], [address] EST GFR - AA 82 mL/min Normal >60 [facility] Comment on above: Order Comment: .1 Result Comment: Afri can Ug[place]an GFR Calc Performed By: #### L 100.0100, L501.5200, L500.2500, L501.6710 #### [facility] [address] [place], [address] GAP 6 Normal 5-15 [facility] Comment on above: Order Comment: . Performed By: #### L 100.0100, L501.5200, L500.2500, L501.6710 #### [facility] [address] [place], [address] GFR/1.73 sq M.predicted among non-blacks MDRD (S/P/Bld) [Vol rate/Area] 68 mL/min/{1.73_m2} Normal >60 [facility] Comment on above: Order Comment: .1 Result Comment: Non- GFR Calc Performed By: #### L 100.0100, L501.5200, L500.2500, L501.6710 #### [facility] [address] [place], [address] Glucose [Mass/Vol] 159 mg/dL High 74-106 [facility] Comment on above: Order Comment: .1 Result Comment: Fast ing Glucose result greater than or equal to 126 mg/dL suggests DIABETES MELLITUS per A.D.A. criteria. Performed By: #### L 100.0100, L501.5200, L500.2500, L501.6710 #### [facility] [address] [place], [address] Potassium [Moles/Vol] 3.6 mmol/L Normal 3.5-5.1 [facility] Comment on above: Order Comment: 207.1 Performed By: #### L 100.0100, L501.5200, L500.2500, L501.6710 #### [facility] [address] [place], [address] Sodium [Moles/Vol] 138 mmol/L Normal 136-145 [facility] Comment on above: Order Comment: 207.1 Performed By: #### L 100.0100, L501.5200, L500.2500, L501.6710 #### [facility] [address] [place], [address] Urea nitrogen [Mass/Vol] 13 mg/dL Normal 7-18 [facility] Comment on above: Order Comment: 207.1 Performed By: #### L 100.0100, L501.5200, L500.2500, L501.6710 #### [facility] [address] [place], [address] Basophil percentageOrdered B y: Michaela Jaramillo on 03-05-2024 Basophils/100 WBC (Bld) 0.4 % 0-1 [facility] Blood urea nitrogen (BUN)/cr eatinine ratioOrdered By: Michaela Jaramillo on 03-05-2024 Urea nitrogen/Creatinine [Mass ratio] 14.9 mg/mg 10-20 [facility] C-reactive protein measureme nt by high sensitivity methodOrdered By: Michaela Jaramillo on 03-05-2024 C-Reactive Protein Extended Range 12.30 mg/L High 0.0-3.0 [facility] Comment on above: C-Reactive Protein ( CRP) provides useful information for thediagnosis, therapy and monitoring of inflammatory processesand associated diseases. For the evaluation of Relative Riskfor Cardiovascular Disease, a High Sensitivity CRP (HSCRP)should be ordered. CBC W/Diff, Automatedon Absolute Lymph 1.00 X10 3/uL Normal 0.83-4.51 [facility] Comment on above: Order Comment: 207.1 Performed By: #### L 100.0100, L501.5200, L500.2500, L501.6710 #### [facility] [address] [place], [address] Absolute Neut 3.4 X10 3/uL Normal 2.0-7.7 [facility] Comment on above: Order Comment: 207.1 Performed By: #### L 100.0100, L501.5200, L500.2500, L501.6710 #### [facility] [address] [place], [address] Basophils/100 WBC (Bld) 0.4 % Normal 0-1 [facility] Comment on above: Order Comment: 207.1 Performed By: #### L 100.0100, L501.5200, L500.2500, L501.6710 #### [facility] [address] [place], [address] Eosinophils/100 WBC (Bld) 1.1 % Normal 0-5 [facility] Comment on above: Order Comment: 207.1 Performed By: #### L 100.0100, L501.5200, L500.2500, L501.6710 #### [facility] [address] [place], [address] Erythrocyte distribution width (RBC) [Ratio] 12.6 % Normal 11.6-14.6 [facility] Comment on above: Order Comment: 207.1 Performed By: #### L 100.0100, L501.5200, L500.2500, L501.6710 #### [facility] [address] [place], [address] Hematocrit (Bld) [Volume fraction] 37.5 % Normal 37-47 [facility] Comment on above: Order Comment: 207.1 Performed By: #### L 100.0100, L501.5200, L500.2500, L501.6710 #### [facility] [address] [place], [address] Hemoglobin (Bld) [Mass/Vol] 12.3 g/dL Normal 12.0-15.0 [facility] Comment on above: Order Comment: 207.1 Performed By: #### L 100.0100, L501.5200, L500.2500, L501.6710 #### [facility] [address] [place], [address] IG% 0.600 Normal 0.0-0.9 [facility] Comment on above: Order Comment: .1 Result Comment: IG% - Immature Granulocytes (promyelocytes, myelocytes and metamyelocytes) > 1% indicates that a LEFT SHIFT is Present. Performed By: #### L 100.0100, L501.5200, L500.2500, L501.6710 #### [facility] [address] [place], [address] Lymphocytes/100 WBC (Bld) 18.8 % Low 19-41 [facility] Comment on above: Order Comment: .1 Performed By: #### L 100.0100, L501.5200, L500.2500, L501.6710 #### [facility] [address] [place], [address] MCH (RBC) [Entitic mass] 32.1 pg High 27.0-32.0 [facility] Comment on above: Order Comment: 207.1 Performed By: #### L 100.0100, L501.5200, L500.2500, L501.6710 #### [facility] [address] [place], [address] MCHC (RBC) [Mass/Vol] 32.8 g/dL Normal 32-36 [facility] Comment on above: Order Comment: 207.1 Performed By: #### L 100.0100, L501.5200, L500.2500, L501.6710 #### [facility] [address] [place], [address] MCV (RBC) [Entitic vol] 97.9 fL Normal 81-99 [facility] Comment on above: Order Comment: 207.1 Performed By: #### L 100.0100, L501.5200, L500.2500, L501.6710 #### [facility] [address] [place], [address] Monocytes/100 WBC (Bld) 14.7 % High 0-10 [facility] Comment on above: Order Comment: 207.1 Performed By: #### L 100.0100, L501.5200, L500.2500, L501.6710 #### [facility] [address] [place], [address] Neutrophils/100 WBC (Bld) 64.4 % Normal 47-70 [facility] Comment on above: Order Comment: 207.1 Performed By: #### L 100.0100, L501.5200, L500.2500, L501.6710 #### [facility] [address] [place], [address] Nucleated RBC (Bld) [#/Vol] 0 10*3/uL Normal 0-5 [facility] Comment on above: Order Comment: 207.1 Performed By: #### L 100.0100, L501.5200, L500.2500, L501.6710 #### [facility] [address] [place], [address] Platelet mean volume (Bld) [Entitic vol] 9.1 fL Normal 6.2-12.0 [facility] Comment on above: Order Comment: 207.1 Performed By: #### L 100.0100, L501.5200, L500.2500, L501.6710 #### [facility] [address] [place], [address] Platelets (Bld) [#/Vol] 275 10*3/uL Normal 150-450 [facility] Comment on above: Order Comment: 207.1 Performed By: #### L 100.0100, L501.5200, L500.2500, L501.6710 #### [facility] [address] [place], [address] RBC (Bld) [#/Vol] 3.83 10*6/uL Low 4.2-5.4 [facility] Comment on above: Order Comment: 207.1 Performed By: #### L 100.0100, L501.5200, L500.2500, L501.6710 #### [facility] [address] [place], [address] RDW SD 45.1 fl High 35.1-43.9 [facility] Comment on above: Order Comment: 207.1 Performed By: #### L 100.0100, L501.5200, L500.2500, L501.6710 #### [facility] [address] [place], [address] WBC (Bld) [#/Vol] 5.3 10*3/uL Normal 4.4-11.0 [facility] Comment on above: Order Comment: 207.1 Performed By: #### L 100.0100, L501.5200, L500.2500, L501.6710 #### [facility] [address] [place], [address] CRPon 03-05-2024 C-REACTIVE PROT 12.30 mg/L High 0.0-3.0 [facility] Comment on above: Order Comment: 207.1 Result Comment: C-Re active Protein (CRP) provides useful information for the diagnosis, therapy and monitoring of inflammatory processes and associated diseases. For the evaluation of Relative Risk for Cardiovascular Disease, a High Sensitivity CRP (HSCRP) should be ordered. Performed By: #### L 100.0100, L501.5200, L500.2500, L501.6710 #### [facility] [place], [address] Carbon dioxide measurementOr dered By: Michaela Jaramillo on 03-05-2024 CO2 [Moles/Vol] 28.0 mmol/L 21.0-32.0 [facility] Chloride measurementOrdered By: Michaela Jaramillo on 03-05-2024 Chloride [Moles/Vol] 104 mmol/L 98-107 [facility] Eosinophil percentageOrdered By: Michaela Jaramillo on 03-05-2024 Eosinophils/100 WBC (Bld) 1.1 % 0-5 [facility] Erythrocyte distribution wid th ratioOrdered By: Michaela Jaramillo on 03-05-2024 Erythrocyte distribution width (RBC) [Ratio] 12.6 % 11.6-14.6 [facility] Erythrocyte distribution wid th standard deviationOrdered By: Michaela Jaramillo on 03-05-2024 Erythrocyte distribution width (RBC) [Entitic vol] 45.1 fL High 35.1-43.9 [facility] Estimated glomerular filtrat ion rate (GFR) AmericanOrdered By: Michaela Jaramillo on 03-05-2024 Estimated GFR (MDRD) Amer 82 mL/min >60 [facility] Comment on above: GFR Calc Glomerular filtration rate ( GFR) estimationOrdered By: Michaela Jaramillo on 03-05-2024 Estimated GFR (MDRD) Non-Af Amer 68 mL/min >60 [facility] Comment on above: Non- GFR Calc Glucose measurementOrdered B y: Michaela Jaramillo on 03-05-2024 Glucose [Mass/Vol] 159 mg/dL High 74-106 [facility] Comment on above: Fasting Glucose resu lt greater than or equal to 126 mg/dL suggests DIABETES MELLITUS per A.D.A. criteria. Hematocrit Auto (Bld) [Volum e fraction]Ordered By: Michaela Jaramillo on 03-05-2024 Hematocrit (Bld) [Volume fraction] 37.5 % 37-47 [facility] Hemoglobin measurementOrdere d By: Michaela Jaramillo on 03-05-2024 Hemoglobin (Bld) [Mass/Vol] 12.3 g/dL 12.0-15.0 [facility] Immature granulocytes/100 WB C Auto (Bld)Ordered By: Michaela Jaramillo on 03-05-2024 Immature granulocytes/100 WBC (Bld) 0.600 % 0.0-0.9 [facility] Comment on above: IG% - Immature Granu locytes (promyelocytes, myelocytes and metamyelocytes) > 1% indicates that a LEFT SHIFT is Present. Lymphocytes Auto (Unsp spec) [#/Vol]Ordered By: Michaela Jaramillo on 03-05-2024 Lymphocytes (Bld) [#/Vol] 1.00 10*3/uL 0.83-4.51 [facility] Lymphocytes/100 WBC Auto (Un sp spec)Ordered By: Michaela Jaramillo on 03-05-2024 Lymphocytes/100 WBC (Bld) 18.8 % Low 19-41 [facility] MCV (mean corpuscular volume ) determinationOrdered By: Michaela Jaramillo on 03-05-2024 MCV (RBC) [Entitic vol] 97.9 fL 81-99 [facility] Magnesiumon 03-05-2024 Magnesium [Mass/Vol] 2.1 mg/dL Normal 1.6-2.6 [facility] Comment on above: Order Comment: 207.1 Performed By: #### L 100.0100, L501.5200, L500.2500, L501.6710 #### [facility] [address] [place] [address], [id number] Magnesium measurementOrdered By: Michaela Jaramillo on 03-05-2024 Magnesium [Mass/Vol] 2.1 mg/dL 1.6-2.6 [facility] Mean corpuscular hemoglobin (MCH) determinationOrdered By: Michaela Jaramillo on 03-05-2024 MCH (RBC) [Entitic mass] 32.1 pg High 27.0-32.0 [facility] Mean corpuscular hemoglobin concentration (MCHC) determinationOrdered By: Michaela Jaramillo on 03-05-2024 MCHC (RBC) [Mass/Vol] 32.8 g/dL 32-36 [facility] Mean platelet volume determi nationOrdered By: Michaela Jaramillo on 03-05-2024 Platelet mean volume (Bld) [Entitic vol] 9.1 fL 6.2-12.0 [facility] Monocyte percentageOrdered B y: Michaela Jaramillo on 03-05-2024 Monocytes/100 WBC (Bld) 14.7 % High 0-10 [facility] Neutrophil percentageOrdered By: Michaela Jaramillo on 03-05-2024 Neutrophils/100 WBC (Bld) 64.4 % 47-70 [facility] Nucleated red blood cell per centageOrdered By: Michaela Jaramillo on 03-05-2024 Nucleated RBC/100 WBC (Bld) [Ratio] 0 % 0-5 [facility] Platelet countOrdered By: Steven Jaramillo on 03-05-2024 Platelets (Bld) [#/Vol] 275 10*3/uL 150-450 [facility] Potassium measurementOrdered By: Michaela Jaramillo on 03-05-2024 Potassium [Moles/Vol] 3.6 mmol/L 3.5-5.1 [facility] RBC Auto (Bld) [#/Vol]Ordere d By: Michaela Jaramillo on 03-05-2024 RBC (Bld) [#/Vol] 3.83 10*6/uL Low 4.2-5.4 [facility] Serum anion gap measurementO rdered By: Michaela Jaramillo on 03-05-2024 Anion gap [Moles/Vol] 6 mmol/L 5-15 [facility] Serum or plasma calcium olive urement (mass/volume)Ordered By: Michaela Jaramillo on 03-05-2024 Calcium [Mass/Vol] 9.1 mg/dL 8.5-10.1 [facility] Serum or plasma creatinine m easurement (mass/volume)Ordered By: Michaela Jaramillo on 03-05-2024 Creatinine [Mass/Vol] 0.87 mg/dL 0.55-1.02 [facility] Comment on above: The validity of the calculated GFR & GFRAA in patients over 70 years has not been determined. Clinical correlation is essential. Serum or plasma urea nitroge n measurement (mass/volume)Ordered By: Michaela Jaramillo on 03-05-2024 Urea nitrogen [Mass/Vol] 13 mg/dL 7-18 [facility] Sodium levelOrdered By: Jaycee Jaramillo on 03-05-2024 Sodium [Moles/Vol] 138 mmol/L 136-145 [facility] White blood cell (WBC) count Ordered By: Michaela Jaramillo on 03-05-2024 WBC (Bld) [#/Vol] 5.3 10*3/uL 4.4-11.0 [facility] .Auto Diffon 03-02-2024 Basophil, Absolute 0.1 10 3/mcL Normal 0.0-0.3 [facility] Comment on above: Performed By: #### A DIFF, GFR, CBC, BMP, ANEU #### [address] [address] Eosinophil, Absolute 0.0 10 3/mcL Normal 0.0-0.7 [facility] Comment on above: Performed By: #### A DIFF, GFR, CBC, BMP, ANEU #### [address] [address] Lymphocyte, Absolute 0.7 10 3/mcL Low 0.9-4.3 [facility] Comment on above: Performed By: #### A DIFF, GFR, CBC, BMP, ANEU #### [address] [address] Monocyte, Absolute 0.8 10 3/mcL Normal 0.1-1.4 [facility] Comment on above: Performed By: #### A DIFF, GFR, CBC, BMP, ANEU #### [address] [address] .Auto DiffOrdered By: SYSTEM SYSTEM on 03-02-2024 Basophils/100 WBC (Bld) 0.7 % Normal 0.0-2.5 [facility] Comment on above: Performed By: #### A DIFF, GFR, CBC, BMP, ANEU #### [address] [address] Eosinophils/100 WBC (Bld) 0.5 % Normal 0.0-6.0 [facility] Comment on above: Performed By: #### A DIFF, GFR, CBC, BMP, ANEU #### [address] [address] Lymphocytes/100 WBC (Bld) 8.4 % Low 20.0-40.0 [facility] Comment on above: Performed By: #### A DIFF, GFR, CBC, BMP, ANEU #### [address] [address] Monocytes/100 WBC (Bld) 9.9 % Normal 2.0-13.0 [facility] Comment on above: Performed By: #### A DIFF, GFR, CBC, BMP, ANEU #### [address] [address] Neutrophils/100 WBC (Bld) 80.5 % High 50.0-75.0 [facility] Comment on above: Performed By: #### A DIFF, GFR, CBC, BMP, ANEU #### [address] [address] .GFRon 03-02-2024 GFR Non- >60 [facility] Comment on above: Result Comment: GFR [...] A DIFF, GFR, CBC, BMP, ANEU #### [address] [address] GFR >60 Normal [facility] Comment on above: Result Comment: GFR [...] A DIFF, GFR, CBC, BMP, ANEU #### [address] [address] .NEUABSon 03-02-2024 Neutrophil, Absolute 6.4 10 3/mcL Normal 2.3-8.1 [facility] Comment on above: Performed By: #### A DIFF, GFR, CBC, BMP, ANEU #### [place] [address] CBCOrdered By: SYSTEM SYSTEM on 03-02-2024 Erythrocyte distribution width (RBC) [Ratio] 13.1 % Normal 11.5-15.5 [facility] Comment on above: Performed By: #### A DIFF, GFR, CBC, BMP, ANEU #### [place] [address] Hematocrit (Bld) [Volume fraction] 38.4 % Normal 34.0-46.0 [facility] Comment on above: Performed By: #### A DIFF, GFR, CBC, BMP, ANEU #### [place] [address] MCH (RBC) [Entitic mass] 33.6 pg High 27.0-33.0 [facility] Comment on above: Performed By: #### A DIFF, GFR, CBC, BMP, ANEU #### [place] [address] MCHC 35.2 G/dL Normal 32.0-36.0 [facility] Comment on above: Performed By: #### A DIFF, GFR, CBC, BMP, ANEU #### [place] [address] MCV (RBC) [Entitic vol] 95.5 fL Normal 80.0-99.0 [facility] Comment on above: Performed By: #### A DIFF, GFR, CBC, BMP, ANEU #### [place] [address] Platelet mean volume (Bld) [Entitic vol] 7.0 fL Normal 6.6-10.5 [facility] Comment on above: Performed By: #### A DIFF, GFR, CBC, BMP, ANEU #### [place] [address] CBCon 03-02-2024 Hgb 13.5 G/dL Normal 12.0-16.0 [facility] Comment on above: Performed By: #### A DIFF, GFR, CBC, BMP, ANEU #### [place] [address] Platelet 333 10 3/mcL Normal 150-450 [facility] Comment on above: Performed By: #### A DIFF, GFR, CBC, BMP, ANEU #### [place] [address] RBC 4.02 10 6/mcL Low 4.10-5.30 [facility] Comment on above: Performed By: #### A DIFF, GFR, CBC, BMP, ANEU #### [place] [address] WBC 8.0 10 3/mcL Normal 4.5-10.8 [facility] Comment on above: Performed By: #### A DIFF, GFR, CBC, BMP, ANEU #### [place] [address] CMPon 03-02-2024 Albumin Level 3.2 G/dL Normal 3.2-4.8 [facility] Comment on above: Performed By: #### A DIFF, GFR, CBC, BMP, ANEU #### [place] [address] ALT [Catalytic activity/Vol] 22 U/L Normal 10-49 [facility] Comment on above: Performed By: #### A DIFF, GFR, CBC, BMP, ANEU #### [address] [address] Bili Total 0.60 mg/dL Normal 0.20-1.20 [facility] Comment on above: Result Comment: Use of this assay is not recommended for patients undergoing treatment with eltrombopag due to the potential for falsely elevated results. Performed By: #### A DIFF, GFR, CBC, BMP, ANEU #### [place] [address] BUN/Creatinine Ratio 17.3 ratio Normal 10.0-22.0 [facility] Comment on above: Performed By: #### A DIFF, GFR, CBC, BMP, ANEU #### [place] [address] Total Protein 6.9 G/dL Normal 5.7-8.2 [facility] Comment on above: Performed By: #### A DIFF, GFR, CBC, BMP, ANEU #### [place] [address] CMPOrdered By: SYSTEM SYSTEM on 03-02-2024 Albumin/Globulin [Mass ratio] 0.9 {ratio} Normal 0.9-1.6 [facility] Comment on above: Performed By: #### A DIFF, GFR, CBC, BMP, ANEU #### [place] [address] ALP [Catalytic activity/Vol] 125 U/L Normal 38-126 [facility] Comment on above: Performed By: #### A DIFF, GFR, CBC, BMP, ANEU #### [place] [id number] AST [Catalytic activity/Vol] 19 U/L Normal 8-34 [facility] Comment on above: Performed By: #### A DIFF, GFR, CBC, BMP, ANEU #### [place] [address] Calcium [Mass/Vol] 9.5 mg/dL Normal 8.7-10.4 [facility] Comment on above: Performed By: #### A DIFF, GFR, CBC, BMP, ANEU #### [place] [id number] Chloride [Moles/Vol] 104 mmol/L Normal 98-110 [facility] A DM SS Comment on above: Performed By: #### A DIFF, GFR, CBC, BMP, ANEU #### [address] [address] CO2 [Moles/Vol] 28 mmol/L Normal 22-32 [facility] Comment on above: Performed By: #### A DIFF, GFR, CBC, BMP, ANEU #### [address] [address] Creatinine [Mass/Vol] 0.75 mg/dL Normal 0.50-1.20 [facility] Comment on above: Interpretive Data: T esting performed on [employer] CH analyzer using enzymatic creatinine methodology. Result Comment: Test ing performed on [employer] CH analyzer using enzymatic creatinine methodology. Performed By: #### A DIFF, GFR, CBC, BMP, ANEU #### [address] [address] Electrolyte Balance 9.0 mEq/L Normal 4.0-15.0 AH AD M SS Comment on above: Performed By: #### A DIFF, GFR, CBC, BMP, ANEU #### [address] [address] Globulin 3.7 G/dL Normal 1.5-3.8 [facility] Comment on above: Performed By: #### A DIFF, GFR, CBC, BMP, ANEU #### [address] [address] Glucose [Mass/Vol] 164 mg/dL High 82-115 [facility] Comment on above: Performed By: #### A DIFF, GFR, CBC, BMP, ANEU #### [address] [address] Potassium [Moles/Vol] 4.0 mmol/L Normal 3.5-5.0 [facility] Comment on above: Performed By: #### A DIFF, GFR, CBC, BMP, ANEU #### [address] [address] Sodium [Moles/Vol] 141 mmol/L Normal 136-145 [facility] Comment on above: Performed By: #### A DIFF, GFR, CBC, BMP, ANEU #### [place] [id number] Urea nitrogen [Mass/Vol] 13.0 mg/dL Normal 8.0-22.0 [facility] Comment on above: Performed By: #### A DIFF, GFR, CBC, BMP, ANEU #### [place] [address] HEPACon 03-02-2024 Hep A IgM Ab Non-Reactive Normal Non-Reactive [facility] Comment on above: Performed By: #### A DIFF, GFR, CBC, BMP, ANEU #### [place] [address] Hep A IgM Ab Int [facility] Comment on above: Result Comment: No s erological evidence of a current Hepatitis A infection. See Interp Performed By: #### A DIFF, GFR, CBC, BMP, ANEU #### [place] [address] Hep B Core IgM Ab Non-Reactive Normal Non-Reactive [facility] Comment on above: Performed By: #### A DIFF, GFR, CBC, BMP, ANEU #### [place] [address] Hep B Core IgM Ab Int [facility] Comment on above: Result Comment: Samp les with a value < 0.80 Index are considered nonreactive (negative) for IgM antibodies to hepatitis B core antigen. See Interp Performed By: #### A DIFF, GFR, CBC, BMP, ANEU #### [place] [address] Hep B Surf Ag Non-Reactive [place] Non-Reactive [facility] Comment on above: Performed By: #### A DIFF, GFR, CBC, BMP, ANEU #### [place] [address] Hep C Ab Non-Reactive [place] [facility] Comment on above: Performed By: #### A DIFF, GFR, CBC, BMP, ANEU #### [place] [address] Hep C Ab Int [facility] Comment on above: Result Comment: Nonr [...] A DIFF, GFR, CBC, BMP, ANEU #### [place] [address] LABORATORYOrdered By: SYSTEM SYSTEM on 03-02-2024 Albumin [...] 6.4 103/mcL Normal 2.3 - 8.1 10^3/mcL [facility] Workflow SS Platelets (Bld) [#/Vol] 333 103/mcL Normal 150 - 450 10^3/mcL Workflow SS Protein [Mass/Vol] 6.9 G/dL Normal 5.7 - 8.2 G/dL ADM SS RBC (Bld) [#/Vol] 4.02 106/mcL Low 4.10 - 5.3 0 10^6/mcL [facility] Workflow SS Urea nitrogen/Creatinine [Mass ratio] 17.3 ratio Normal 10.0 - 22.0 ratio ADM SS WBC (Bld) [#/Vol] 8.0 103/mcL Normal 4.5 - 10.8 10^3/mcL Workflow SS LABORATORYOrdered By: Arash Whipple on 03-02-2024 HAV IgM IA Ql Non-Reactive (03/02/24 10:00 AM) Normal Non-Reactive ADM SS HAV IgM IA Ql No serological evidence of a current Hepatitis A infection. Invalid Interpretation Code Chemistry S HBV core IgM IA Ql Non-Reactive (03/02/24 10:00 AM) Normal Non-Reactive AH ADM SS HBV core IgM IA Ql Samples with a value < 0.80 Index are considered nonreactive (negative) for IgM antibodies to hepatitis B core antigen. Invalid Interpretation Code AH Chemistry S HBV surface Ag IA Ql [...] LDHon 03-02-2024 LDH 186 U/L Normal 120-246 [facility] Comment on above: Performed By: #### A DIFF, GFR, CBC, BMP, ANEU #### [facility] [address] [place] [address] Basic Metabolic Profile (BMP )on 02-27-2024 BUN/CRE 17.4 RATIO Normal 10-20 [facility] Comment on above: Order Comment: 207.1 Performed By: #### L 100.0100, L501.5200, L500.2500, L501.6710 #### [facility] [address] [place], [address] CA,Total 9.0 mg/dL Normal 8.5-10.1 [facility] Comment on above: Order Comment: 207.1 Performed By: #### L 100.0100, L501.5200, L500.2500, L501.6710 #### [facility] [address] [place], [address] Chloride [Moles/Vol] 104 mmol/L Normal 98-107 [facility] Comment on above: Order Comment: 207.1 Performed By: #### L 100.0100, L501.5200, L500.2500, L501.6710 #### [facility] [address] [place], [address] CO2 [Moles/Vol] 28.0 mmol/L Normal 21.0-32.0 [facility] Comment on above: Order Comment: 207.1 Performed By: #### L 100.0100, L501.5200, L500.2500, L501.6710 #### [facility] [address] [place], [address] Creatinine [Mass/Vol] 0.86 mg/dL Normal 0.55-1.02 [facility] Comment on above: Order Comment: 207.1 Result Comment: The validity of the calculated GFR GFRAA in patients over 70 years has not been determined. Clinical correlation is essential. Performed By: #### L 100.0100, L501.5200, L500.2500, L501.6710 #### [facility] [address] [place], [address] EST GFR - AA 83 mL/min Normal >60 [facility] Comment on above: Order Comment: .1 Result Comment: Afri can [place] GFR Calc Performed By: #### L 100.0100, L501.5200, L500.2500, L501.6710 #### [facility] [address] [place], [address] GAP 8 Normal 5-15 [facility] Comment on above: Order Comment: .1 Performed By: #### L 100.0100, L501.5200, L500.2500, L501.6710 #### [facility] [address] [place], [address] GFR/1.73 sq M.predicted among non-blacks MDRD (S/P/Bld) [Vol rate/Area] 68 mL/min/{1.73_m2} Normal >60 [facility] Comment on above: Order Comment: 207.1 Result Comment: Non- GFR Calc Performed By: #### L 100.0100, L501.5200, L500.2500, L501.6710 #### [facility] [address] [place], [address] Glucose [Mass/Vol] 139 mg/dL High 74-106 [facility] Comment on above: Order Comment: 207.1 Result Comment: Fast ing Glucose result greater than or equal to 126 mg/dL suggests DIABETES MELLITUS per A.D.A. criteria. Performed By: #### L 100.0100, L501.5200, L500.2500, L501.6710 #### [facility] [address] [place], [address] Potassium [Moles/Vol] 3.5 mmol/L Normal 3.5-5.1 [facility] Comment on above: Order Comment: 207.1 Performed By: #### L 100.0100, L501.5200, L500.2500, L501.6710 #### [facility] [address] [place], [address] Sodium [Moles/Vol] 139 mmol/L Normal 136-145 [facility] Comment on above: Order Comment: 207.1 Performed By: #### L 100.0100, L501.5200, L500.2500, L501.6710 #### [facility] [address] [place], [address] Urea nitrogen [Mass/Vol] 15 mg/dL Normal 7-18 [facility] Comment on above: Order Comment: 207.1 Performed By: #### L 100.0100, L501.5200, L500.2500, L501.6710 #### [facility] [address] [place], [address] Blood urea nitrogen (BUN)/cr eatinine ratioOrdered By: Michaela Jaramillo on 02-27-2024 Urea nitrogen/Creatinine [Mass ratio] 17.4 mg/mg 10-20 [facility] CBC-Complete Blood Cnt No Di ffon 02-27-2024 Erythrocyte distribution width (RBC) [Ratio] 12.6 % Normal 11.6-14.6 [facility] Comment on above: Order Comment: 207.1 Performed By: #### L 100.0100, L501.5200, L500.2500, L501.6710 #### [facility] [address] [place], [address] Hematocrit (Bld) [Volume fraction] 36.8 % Low 37-47 [facility] Comment on above: Order Comment: 207.1 Performed By: #### L 100.0100, L501.5200, L500.2500, L501.6710 #### [facility] [address] [place], [address] Hemoglobin (Bld) [Mass/Vol] 12.3 g/dL Normal 12.0-15.0 [facility] Comment on above: Order Comment: 207.1 Performed By: #### L 100.0100, L501.5200, L500.2500, L501.6710 #### [facility] [address] [place], [address] MCH (RBC) [Entitic mass] 32.8 pg High 27.0-32.0 [facility] Comment on above: Order Comment: 207.1 Performed By: #### L 100.0100, L501.5200, L500.2500, L501.6710 #### [facility] [address] [place], [address] MCHC (RBC) [Mass/Vol] 33.4 g/dL Normal 32-36 [facility] Comment on above: Order Comment: 207.1 Performed By: #### L 100.0100, L501.5200, L500.2500, L501.6710 #### [facility] [address] [place], [address] MCV (RBC) [Entitic vol] 98.1 fL Normal 81-99 [facility] Comment on above: Order Comment: 207.1 Performed By: #### L 100.0100, L501.5200, L500.2500, L501.6710 #### [facility] [address] [place], [address] Platelet mean volume (Bld) [Entitic vol] 9.1 fL Normal 6.2-12.0 [facility] Comment on above: Order Comment: 207.1 Performed By: #### L 100.0100, L501.5200, L500.2500, L501.6710 #### [facility] [address] [place], [address] Platelets (Bld) [#/Vol] 272 10*3/uL Normal 150-450 [facility] Comment on above: Order Comment: 207.1 Performed By: #### L 100.0100, L501.5200, L500.2500, L501.6710 #### [facility] [address] [place], [address] RBC (Bld) [#/Vol] 3.75 10*6/uL Low 4.2-5.4 [facility] Comment on above: Order Comment: 207.1 Performed By: #### L 100.0100, L501.5200, L500.2500, L501.6710 #### [facility] [address] [place], [address] RDW SD 45.2 fl High 35.1-43.9 [facility] Comment on above: Order Comment: 207.1 Performed By: #### L 100.0100, L501.5200, L500.2500, L501.6710 #### [facility] [address] [place], [address] WBC (Bld) [#/Vol] 5.7 10*3/uL Normal 4.4-11.0 [facility] Comment on above: Order Comment: 207.1 Performed By: #### L 100.0100, L501.5200, L500.2500, L501.6710 #### [facility] [place], [address] Carbon dioxide measurementOr dered By: Michaela Jaramillo on 02-27-2024 CO2 [Moles/Vol] 28.0 mmol/L 21.0-32.0 [facility] Chloride measurementOrdered By: Michaela Jaramillo on 02-27-2024 Chloride [Moles/Vol] 104 mmol/L 98-107 [facility] Erythrocyte distribution wid th ratioOrdered By: Michaela Jaramillo on 02-27-2024 Erythrocyte distribution width (RBC) [Ratio] 12.6 % 11.6-14.6 [facility] Erythrocyte distribution wid th standard deviationOrdered By: Michaela Jaramillo on 02-27-2024 Erythrocyte distribution width (RBC) [Entitic vol] 45.2 fL High 35.1-43.9 [facility] Estimated glomerular filtrat ion rate (GFR) AmericanOrdered By: Michaela Jaramillo on 02-27-2024 Estimated GFR (MDRD) Amer 83 mL/min >60 [facility] Comment on above: GFR Calc Glomerular filtration rate ( GFR) estimationOrdered By: Michaela Jaramillo on 02-27-2024 Estimated GFR (MDRD) Non-Af Amer 68 mL/min >60 [facility] Comment on above: Non- GFR Calc Glucose measurementOrdered B y: Michaela Jaramillo on 02-27-2024 Glucose [Mass/Vol] 139 mg/dL High 74-106 [facility] Comment on above: Fasting Glucose resu lt greater than or equal to 126 mg/dL suggests DIABETES MELLITUS per A.D.A. criteria. Hematocrit Auto (Bld) [Volum e fraction]Ordered By: Michaela Jaramillo on 02-27-2024 Hematocrit (Bld) [Volume fraction] 36.8 % Low 37-47 [facility] Hemoglobin measurementOrdere d By: Michaela Jaramillo on 02-27-2024 Hemoglobin (Bld) [Mass/Vol] 12.3 g/dL 12.0-15.0 [facility] MCV (mean corpuscular volume ) determinationOrdered By: Michaela Jaramillo on 02-27-2024 MCV (RBC) [Entitic vol] 98.1 fL 81-99 [facility] Magnesiumon 02-27-2024 Magnesium [Mass/Vol] 2.1 mg/dL Normal 1.6-2.6 [facility] Comment on above: Order Comment: 207.1 Performed By: #### L 100.0100, L501.5200, L500.2500, L501.6710 #### [facility] [address] [place], [address] Magnesium measurementOrdered By: Michaela Jaramillo on 02-27-2024 Magnesium [Mass/Vol] 2.1 mg/dL 1.6-2.6 [facility] Mean corpuscular hemoglobin (MCH) determinationOrdered By: Michaela Jaramillo on 02-27-2024 MCH (RBC) [Entitic mass] 32.8 pg High 27.0-32.0 [facility] Mean corpuscular hemoglobin concentration (MCHC) determinationOrdered By: Michaela Jaramillo on 02-27-2024 MCHC (RBC) [Mass/Vol] 33.4 g/dL 32-36 [facility] Mean platelet volume determi nationOrdered By: Michaela Jaramillo on 02-27-2024 Platelet mean volume (Bld) [Entitic vol] 9.1 fL 6.2-12.0 [facility] Platelet countOrdered By: Steven Jaramillo on 02-27-2024 Platelets (Bld) [#/Vol] 272 10*3/uL 150-450 [facility] Potassium measurementOrdered By: Michaela Jaramillo on 02-27-2024 Potassium [Moles/Vol] 3.5 mmol/L 3.5-5.1 [facility] RBC Auto (Bld) [#/Vol]Ordere d By: Michaela Jaramillo on 02-27-2024 RBC (Bld) [#/Vol] 3.75 10*6/uL Low 4.2-5.4 [facility] Serum anion gap measurementO rdered By: Michaela Jaramillo on 02-27-2024 Anion gap [Moles/Vol] 8 mmol/L 5-15 [facility] Serum or plasma calcium olive urement (mass/volume)Ordered By: Michaela Jaramillo on 02-27-2024 Calcium [Mass/Vol] 9.0 mg/dL 8.5-10.1 [facility] Serum or plasma creatinine m easurement (mass/volume)Ordered By: Michaela Jaramillo on 02-27-2024 Creatinine [Mass/Vol] 0.86 mg/dL 0.55-1.02 [facility] Comment on above: The validity of the calculated GFR & GFRAA in patients over 70 years has not been determined. Clinical correlation is essential. Serum or plasma urea nitroge n measurement (mass/volume)Ordered By: Michaela Jaramillo on 02-27-2024 Urea nitrogen [Mass/Vol] 15 mg/dL 7-18 [facility] Sodium levelOrdered By: Jaycee Jaramillo on 02-27-2024 Sodium [Moles/Vol] 139 mmol/L 136-145 [facility] White blood cell (WBC) count Ordered By: Michaela Jaramillo on 02-27-2024 WBC (Bld) [#/Vol] 5.7 10*3/uL 4.4-11.0 [facility] Basic Metabolic Profile (BMP )on 02-20-2024 BUN/CRE 14.9 RATIO Normal 10-20 [facility] Comment on above: Order Comment: 1 Performed By: #### L 501.3620, L500.2500, L100.0100, L3600.5100, L501.4020 #### [facility] [address] [place], [address] CA,Total 9.4 mg/dL Normal 8.5-10.1 [facility] Comment on above: Order Comment: 1 Performed By: #### L 501.3620, L500.2500, L100.0100, L3600.5100, L501.4020 #### [facility] [address] [place], [address] Chloride [Moles/Vol] 104 mmol/L Normal 98-107 [facility] Comment on above: Order Comment: 1 Performed By: #### L 501.3620, L500.2500, L100.0100, L3600.5100, L501.4020 #### [facility] [address] [place], [address] CO2 [Moles/Vol] 28.0 mmol/L Normal 21.0-32.0 [facility] Comment on above: Order Comment: 1 Performed By: #### L 501.3620, L500.2500, L100.0100, L3600.5100, L501.4020 #### [facility] [address] [place], [address] Creatinine [Mass/Vol] 0.87 mg/dL Normal 0.55-1.02 [facility] Comment on above: Order Comment: 1 Result Comment: The validity of the calculated GFR GFRAA in patients over 70 years has not been determined. Clinical correlation is essential. Performed By: #### L 501.3620, L500.2500, L100.0100, L3600.5100, L501.4020 #### [facility] [address] [place], [address] EST GFR - AA 82 mL/min Normal >60 [facility] Comment on above: Order Comment: 1 Result Comment: Afri can Ugandan GFR Calc Performed By: #### L 501.3620, L500.2500, L100.0100, L3600.5100, L501.4020 #### [facility] [address] [place], [address] GAP 8 Normal 5-15 [facility] Comment on above: Order Comment: 1 Performed By: #### L 501.3620, L500.2500, L100.0100, L3600.5100, L501.4020 #### [facility] [address] [place], [address] GFR/1.73 sq M.predicted among non-blacks MDRD (S/P/Bld) [Vol rate/Area] 67 mL/min/{1.73_m2} Normal >60 [facility] Comment on above: Order Comment: 1 Result Comment: Non- GFR Calc Performed By: #### L 501.3620, L500.2500, L100.0100, L3600.5100, L501.4020 #### [facility] [address] [place], [address] Glucose [Mass/Vol] 158 mg/dL High 74-106 [facility] Comment on above: Order Comment: 1 Result Comment: Fast ing Glucose result greater than or equal to 126 mg/dL suggests DIABETES MELLITUS per A.D.A. criteria. Performed By: #### L 501.3620, L500.2500, L100.0100, L3600.5100, L501.4020 #### [facility] [address] [place], [address] Potassium [Moles/Vol] 3.7 mmol/L Normal 3.5-5.1 [facility] Comment on above: Order Comment: 1 Performed By: #### L 501.3620, L500.2500, L100.0100, L3600.5100, L501.4020 #### [facility] [address] [place], [address] Sodium [Moles/Vol] 139 mmol/L Normal 136-145 [facility] Comment on above: Order Comment: 1 Performed By: #### L 501.3620, L500.2500, L100.0100, L3600.5100, L501.4020 #### [facility] [address] [place], [address] Urea nitrogen [Mass/Vol] 13 mg/dL Normal 7-18 [facility] Comment on above: Order Comment: 1 Performed By: #### L 501.3620, L500.2500, L100.0100, L3600.5100, L501.4020 #### [facility] [address] [place], [address] Blood urea nitrogen (BUN)/cr eatinine ratioOrdered By: Michaela Jaramillo on 02-20-2024 Urea nitrogen/Creatinine [Mass ratio] 14.9 mg/mg 10-20 [facility] CBC-Complete Blood Cnt No Di ffon 02-20-2024 Erythrocyte distribution width (RBC) [Ratio] 12.8 % Normal 11.6-14.6 [facility] Comment on above: Order Comment: 1 Performed By: #### L 501.3620, L500.2500, L100.0100, L3600.5100, L501.4020 #### [facility] [address] [place], [address] Hematocrit (Bld) [Volume fraction] 36.8 % Low 37-47 [facility] Comment on above: Order Comment: 1 Performed By: #### L 501.3620, L500.2500, L100.0100, L3600.5100, L501.4020 #### [facility] [address] [place], [address] Hemoglobin (Bld) [Mass/Vol] 12.3 g/dL Normal 12.0-15.0 [facility] Comment on above: Order Comment: 1 Performed By: #### L 501.3620, L500.2500, L100.0100, L3600.5100, L501.4020 #### [facility] [address] [place], [address] MCH (RBC) [Entitic mass] 32.6 pg High 27.0-32.0 [facility] Comment on above: Order Comment: 1 Performed By: #### L 501.3620, L500.2500, L100.0100, L3600.5100, L501.4020 #### [facility] [address] [place], [address] MCHC (RBC) [Mass/Vol] 33.4 g/dL Normal 32-36 [facility] Comment on above: Order Comment: 1 Performed By: #### L 501.3620, L500.2500, L100.0100, L3600.5100, L501.4020 #### [facility] [address] [place], [address] MCV (RBC) [Entitic vol] 97.6 fL Normal 81-99 [facility] Comment on above: Order Comment: 1 Performed By: #### L 501.3620, L500.2500, L100.0100, L3600.5100, L501.4020 #### [facility] [address] [place], [address] Platelet mean volume (Bld) [Entitic vol] 9.0 fL Normal 6.2-12.0 [facility] Comment on above: Order Comment: 1 Performed By: #### L 501.3620, L500.2500, L100.0100, L3600.5100, L501.4020 #### [facility] [address] [place], [address] Platelets (Bld) [#/Vol] 192 10*3/uL Normal 150-450 [facility] Comment on above: Order Comment: 1 Performed By: #### L 501.3620, L500.2500, L100.0100, L3600.5100, L501.4020 #### [facility] [address] [place], [address] RBC (Bld) [#/Vol] 3.77 10*6/uL Low 4.2-5.4 [facility] Comment on above: Order Comment: 1 Performed By: #### L 501.3620, L500.2500, L100.0100, L3600.5100, L501.4020 #### [facility] [address] [place], [address] RDW SD 45.2 fl High 35.1-43.9 [facility] Comment on above: Order Comment: 1 Performed By: #### L 501.3620, L500.2500, L100.0100, L3600.5100, L501.4020 #### [facility] [address] [place], [address] WBC (Bld) [#/Vol] 3.7 10*3/uL Low 4.4-11.0 [facility] Comment on above: Order Comment: 1 Performed By: #### L 501.3620, L500.2500, L100.0100, L3600.5100, L501.4020 #### [facility] [address] [place], [address] Carbon dioxide measurementOr dered By: Michaela Jaramillo on 02-20-2024 CO2 [Moles/Vol] 28.0 mmol/L 21.0-32.0 [facility] Chloride measurementOrdered By: Michaelaada Jaramillo on 02-20-2024 Chloride [Moles/Vol] 104 mmol/L 98-107 [facility] Erythrocyte distribution wid th ratioOrdered By: Michaela Jaramillo on 02-20-2024 Erythrocyte distribution width (RBC) [Ratio] 12.8 % 11.6-14.6 [facility] Erythrocyte distribution wid th standard deviationOrdered By: Michaelaada Jaramillo on 02-20-2024 Erythrocyte distribution width (RBC) [Entitic vol] 45.2 fL High 35.1-43.9 [facility] Estimated glomerular filtrat ion rate (GFR) AmericanOrdered By: Michaela Jaramillo on 02-20-2024 Estimated GFR (MDRD) Amer 82 mL/min >60 [facility] Comment on above: GFR Calc Final Surgical Pathology Rep sánchez 02-20-2024 Final Surgical Pathology Report . Pathology Reports Accession: Collected Date/Time: Received Date/Time: Pathologist: [id number] 01/30/2024 11:44 EST 01/31/2024 07:47 IRENE CHAHAL MD Final Surgical Pathology Report DIAGNOSIS: A. BRAIN, RIGHT PARIETAL MASS, DEBULKING: - INTEGRATED DIAGNOSIS: GLIOBLASTOMA, IDH -WILD-TYPE - HISTOLOGICAL DIAGNOSIS: GLIOBLASTOMA - INSECTICIDE MAKER WHO GRADE: 4 - MOLECULAR INFORMATION: ALTERATIONS [...] NOT DIAGNOSTIC OF NEOPLASM COMMENT: Tempus [address] [facility], [address] [address] TEMPUS xT Results: No potentially actionable variants and no reportable treatment options found. Genomic Variants Biologically Relevant: PTEN c.634+1del, TERT c.-146C>T Variant-Promoter mutation, EGFR p.L62R, CDKN2A Copy number loss, CDKN2B Copy number loss, ERRFI1 Copy number loss Tumor / Normal matched analysis (Potential germline) No normal sample was received, therefore tumor/normal matched analysis was not performed. Immunotherapy markers Tumor Mutational Bokeelia 2.6 m/MB Microsatellite Instability Status Stable Treatment [...] Reports Accession: Collected Date/Time: Received Date/Time: Pathologist: [id number] 01/30/2024 11:44 EST 01/31/2024 07:47 EST IRENE ALBERTO MD CLINICAL INFORMATION: Procedure: RIGHT PARIETAL CRANIOTOMY FOR DEBULKING OF TUMOR Preoperative diagnosis: BRAIN TUMOR Postoperative diagnosis: BRAIN TUMOR SPECIMEN: A RIGHT PARIETAL MASS B RIGHT PARIETAL MASS NON-ENHANCING GROSS DESCRIPTION: All parts labelled with patient name and [id number] A. Received in formalin labelled right parietal mass Are multiple de la fuente-white hemorrhagic tissue fragments aggregating to 4.5 x 4.0 x 0.7 cm. TS-4 B. Received in formalin labelled right parietal mass non enhancing Is a de la fuente-white firm portion of brain tissue measuring 1.3 x 1.1 x 0.6 cm. The tissue is bisected longitudinally. TS-1 Nasrin Crystal, Path[employer]' [employer] (ASCP) Performed by NASRIN CRYSTAL MICROSCOPIC DESCRIPTION: The microscopic examination is performed, except in the case of Gross Only. Electronically Signed by Pathology Report verified by [facility] IRENE ALBERTO Sign out Date: 02/20/2024 08:43 Performing Lab: [facility], [address] [place] [address] Pathology Dept Disclaimer If ancillary studies were utilized, the following Laboratory Developed Test (LDT) disclaimer will apply: Under CLIA requirements, [facility] is qualified to perform high complexity testing. For all ancillary stains, positive and negative controls stain appropriately. Performance characteristics of immunohistochemical and chromogenic in-situ hybridization tests have been determined by [facility]. These tests are [...] Reports Accession: Collected Date/Time: Received Date/Time: Pathologist: [id number] 01/30/2024 11:44 EST 01/31/2024 07:47 IRENE CHAHAL MD Electronically Signed by SHARAN ALBERTO Sign out Date: 02/01/2024 09:49 Performing (more content not included)... Normal [facility] Glomerular filtration rate ( GFR) estimationOrdered By: Michaela Jaramillo on 02-20-2024 Estimated GFR (MDRD) Non-Af Amer 67 mL/min >60 [facility] Comment on above: Non- GFR Calc Glucose measurementOrdered B y: Michaela Jaramillo on 02-20-2024 Glucose [Mass/Vol] 158 mg/dL High 74-106 [facility] Comment on above: Fasting Glucose resu lt greater than or equal to 126 mg/dL suggests DIABETES MELLITUS per A.D.A. criteria. Hematocrit Auto (Bld) [Volum e fraction]Ordered By: Michaela Jaramillo on 02-20-2024 Hematocrit (Bld) [Volume fraction] 36.8 % Low 37-47 [facility] Hemoglobin measurementOrdere d By: Michaela Jaramillo on 02-20-2024 Hemoglobin (Bld) [Mass/Vol] 12.3 g/dL 12.0-15.0 [facility] KEPPRA (LEVETIRACETAM)on KEPPRA 14.0 ug/mL Normal 10.0-40.0 [facility] Comment on above: Order Comment: 207.1 Result Comment: Perf ormed at: - [facility] [id number] Acid Patroller: Altagracia Rocha MD, Phone: [phone] Performed By: #### L 100.0100, L501.5200, L500.2500, L501.9621 #### [facility] [address] [place], [address] MCV (mean corpuscular volume ) determinationOrdered By: Michaela Jaramillo on 02-20-2024 MCV (RBC) [Entitic vol] 97.6 fL 81-99 [facility] Magnesiumon 02-20-2024 Magnesium [Mass/Vol] 2.0 mg/dL Normal 1.6-2.6 [facility] Comment on above: Order Comment: 1 Performed By: #### L 501.3620, L500.2500, L100.0100, L3600.5100, L501.4020 #### [facility] [address] [place], [address] Magnesium measurementOrdered By: Michaela Jaramillo on 02-20-2024 Magnesium [Mass/Vol] 2.0 mg/dL 1.6-2.6 [facility] Mean corpuscular hemoglobin (MCH) determinationOrdered By: Michaela Jaramillo on 02-20-2024 MCH (RBC) [Entitic mass] 32.6 pg High 27.0-32.0 [facility] Mean corpuscular hemoglobin concentration (MCHC) determinationOrdered By: Michaela Jaramillo on 02-20-2024 MCHC (RBC) [Mass/Vol] 33.4 g/dL 32-36 [facility] Mean platelet volume determi nationOrdered By: Michaela Jaramillo on 02-20-2024 Platelet mean volume (Bld) [Entitic vol] 9.0 fL 6.2-12.0 [facility] Platelet countOrdered By: Steven Jaramillo on 02-20-2024 Platelets (Bld) [#/Vol] 192 10*3/uL 150-450 [facility] Potassium measurementOrdered By: Michaela Jaramillo on 02-20-2024 Potassium [Moles/Vol] 3.7 mmol/L 3.5-5.1 [facility] RBC Auto (Bld) [#/Vol]Ordere d By: Michaela Jaramillo on 02-20-2024 RBC (Bld) [#/Vol] 3.77 10*6/uL Low 4.2-5.4 [facility] Serum anion gap measurementO rdered By: Michaela Jaramillo on 02-20-2024 Anion gap [Moles/Vol] 8 mmol/L 5-15 [facility] Serum or plasma calcium olive urement (mass/volume)Ordered By: Michaela Jaramillo on 02-20-2024 Calcium [Mass/Vol] 9.4 mg/dL 8.5-10.1 [facility] Serum or plasma creatinine m easurement (mass/volume)Ordered By: Michaela Jaramillo on 02-20-2024 Creatinine [Mass/Vol] 0.87 mg/dL 0.55-1.02 [facility] Comment on above: The validity of the calculated GFR & GFRAA in patients over 70 years has not been determined. Clinical correlation is essential. Serum or plasma urea nitroge n measurement (mass/volume)Ordered By: Michaela Jaramillo on 02-20-2024 Urea nitrogen [Mass/Vol] 13 mg/dL - [facility] Sodium levelOrdered By: Jaycee Jaramillo on 02-20-2024 Sodium [Moles/Vol] 139 mmol/L 136-145 [facility] White blood cell (WBC) count Ordered By: Michaela Jaramillo on 02-20-2024 WBC (Bld) [#/Vol] 3.7 10*3/uL Low 4.4-11.0 [facility] LevetiracetamOrdered By: Cody Jaramillo on 02-15-2024 Levetiracetam (Keppra) Level 14.0 ug/mL 10.0-40.0 [facility] Comment on above: Performed at: [address] [id number] Director: Altagracia Rocha MD, Phone: [phone] [id number] DOrdered By: Jose Juan Jaramillo on 02-13-2024 Vitamin D 25-Hydroxy 18.4 ng/mL [facility] Comment on above: Vitamin D 25(OH) Sta tus Range Deficiency <20 ng/mL (50nmol/L) Insufficiency 20 - 30 ng/mL (50 - 75 nmol/L) Sufficiency 30 - 100 ng/mL (75 - 250 nmol/L) Toxicity >100 ng/mL (>250 nmol/L) Absolute neutrophil countOrd ered By: Michaela Jaramillo on 02-13-2024 Neutrophils (Bld) [#/Vol] 5.0 10*3/uL 2.0-7.7 [facility] Basic Metabolic Profile (BMP )on 02-13-2024 BUN/CRE 12.2 RATIO Normal 10-20 [facility] Comment on above: Order Comment: . Performed By: #### L 100.0100, L501.5200, L500.2500, L501.6710 #### [facility] [address] [place], [address] CA,Total 8.7 mg/dL Normal 8.5-10.1 [facility] Comment on above: Order Comment: . Performed By: #### L 100.0100, L501.5200, L500.2500, L501.6710 #### [facility] [address] [place], [address] Chloride [Moles/Vol] 104 mmol/L Normal 98-107 [facility] Comment on above: Order Comment: . Performed By: #### L 100.0100, L501.5200, L500.2500, L501.6710 #### [facility] [address] [place], [address] CO2 [Moles/Vol] 28.0 mmol/L Normal 21.0-32.0 [facility] Comment on above: Order Comment: . Performed By: #### L 100.0100, L501.5200, L500.2500, L501.6710 #### [facility] [address] [place], [address] Creatinine [Mass/Vol] 0.98 mg/dL Normal 0.55-1.02 [facility] Comment on above: Order Comment: 207.1 Result Comment: The validity of the calculated GFR GFRAA in patients over 70 years has not been determined. Clinical correlation is essential. Performed By: #### L 100.0100, L501.5200, L500.2500, L501.6710 #### [facility] [address] [place], [address] EST GFR - AA 71 mL/min Normal >60 [facility] Comment on above: Order Comment: 207.1 Result Comment: Afri can Ugandan GFR Calc Performed By: #### L 100.0100, L501.5200, L500.2500, L501.6710 #### [facility] [address] [place], [address] GAP 6 Normal 5-15 [facility] Comment on above: Order Comment: . Performed By: #### L 100.0100, L501.5200, L500.2500, L501.6710 #### [facility] [address] [place], [address] GFR/1.73 sq M.predicted among non-blacks MDRD (S/P/Bld) [Vol rate/Area] 59 mL/min/{1.73_m2} Low >60 [facility] Comment on above: Order Comment: Result Comment: Non- GFR Calc Performed By: #### L 100.0100, L501.5200, L500.2500, L501.6710 #### [facility] [address] [place], [address] Glucose [Mass/Vol] 192 mg/dL High 74-106 [facility] Comment on above: Order Comment: Result Comment: Fast ing Glucose result greater than or equal to 126 mg/dL suggests DIABETES MELLITUS per A.D.A. criteria. Performed By: #### L 100.0100, L501.5200, L500.2500, L501.6710 #### [facility] [address] [place], [address] Potassium [Moles/Vol] 3.8 mmol/L Normal 3.5-5.1 [facility] Comment on above: Order Comment: Performed By: #### L 100.0100, L501.5200, L500.2500, L501.6710 #### [facility] [address] [place], [address] Sodium [Moles/Vol] 138 mmol/L Normal 136-145 [facility] Comment on above: Order Comment: 207.1 Performed By: #### L 100.0100, L501.5200, L500.2500, L501.6710 #### [facility] [address] [place], [address] Urea nitrogen [Mass/Vol] 12 mg/dL Normal 7-18 [facility] Comment on above: Order Comment: 207.1 Performed By: #### L 100.0100, L501.5200, L500.2500, L501.6710 #### [facility] [address] [place], [address] Basophil percentageOrdered B y: Michaela Jaramillo on 02-13-2024 Basophils/100 WBC (Bld) 0.4 % 0-1 [facility] Blood urea nitrogen (BUN)/cr eatinine ratioOrdered By: Michaela Jaramillo on 02-13-2024 Urea nitrogen/Creatinine [Mass ratio] 12.2 mg/mg 10- [facility] CBC W/Diff, Automatedon 01-28 Absolute Lymph 0.98 X10 3/uL Normal 0.83-4.51 [facility] Comment on above: Order Comment: 207.1 Performed By: #### L 501.3620, L500.2500, L100.0100, L3600.5100, L501.4020 #### [facility] [address] [place], [address] Absolute Neut 5.0 X10 3/uL Normal 2.0-7.7 [facility] Comment on above: Order Comment: 207.1 Performed By: #### L 501.3620, L500.2500, L100.0100, L3600.5100, L501.4020 #### [facility] [address] [place], [address] Basophils/100 WBC (Bld) 0.4 % Normal 0-1 [facility] Comment on above: Order Comment: 207.1 Performed By: #### L 501.3620, L500.2500, L100.0100, L3600.5100, L501.4020 #### [facility] [address] [place], [address] Eosinophils/100 WBC (Bld) 3.1 % Normal 0-5 [facility] Comment on above: Order Comment: .1 Performed By: #### L 501.3620, L500.2500, L100.0100, L3600.5100, L501.4020 #### [facility] [address] [place], [address] Erythrocyte distribution width (RBC) [Ratio] 12.8 % Normal 11.6-14.6 [facility] Comment on above: Order Comment: .1 Performed By: #### L 501.3620, L500.2500, L100.0100, L3600.5100, L501.4020 #### [facility] [address] [place], [address] Hematocrit (Bld) [Volume fraction] 36.2 % Low 37-47 [facility] Comment on above: Order Comment: .1 Performed By: #### L 501.3620, L500.2500, L100.0100, L3600.5100, L501.4020 #### [facility] [address] [place], [address] Hemoglobin (Bld) [Mass/Vol] 12.1 g/dL Normal 12.0-15.0 [facility] Comment on above: Order Comment: .1 Performed By: #### L 501.3620, L500.2500, L100.0100, L3600.5100, L501.4020 #### [facility] [address] [place], [address] IG% 0.900 Normal 0.0-0.9 [facility] Comment on above: Order Comment: 207.1 Result Comment: IG% - Immature Granulocytes (promyelocytes, myelocytes and metamyelocytes) > 1% indicates that a LEFT SHIFT is Present. Performed By: #### L 501.3620, L500.2500, L100.0100, L3600.5100, L501.4020 #### [facility] [address] [place], [address] Lymphocytes/100 WBC (Bld) 14.0 % Low 19-41 [facility] Comment on above: Order Comment: 207.1 Performed By: #### L 501.3620, L500.2500, L100.0100, L3600.5100, L501.4020 #### [facility] [address] [place], [address] MCH (RBC) [Entitic mass] 33.2 pg High 27.0-32.0 [facility] Comment on above: Order Comment: 207.1 Performed By: #### L 501.3620, L500.2500, L100.0100, L3600.5100, L501.4020 #### [facility] [address] [place], [address] MCHC (RBC) [Mass/Vol] 33.4 g/dL Normal 32-36 [facility] Comment on above: Order Comment: 207.1 Performed By: #### L 501.3620, L500.2500, L100.0100, L3600.5100, L501.4020 #### [facility] [address] [place], [address] MCV (RBC) [Entitic vol] 99.2 fL High 81-99 [facility] Comment on above: Order Comment: 207.1 Performed By: #### L 501.3620, L500.2500, L100.0100, L3600.5100, L501.4020 #### [facility] [address] [place], [address] Monocytes/100 WBC (Bld) 9.7 % Normal 0-10 [facility] Comment on above: Order Comment: 207.1 Performed By: #### L 501.3620, L500.2500, L100.0100, L3600.5100, L501.4020 #### [facility] [address] [place], [address] Neutrophils/100 WBC (Bld) 71.9 % High 47-70 [facility] Comment on above: Order Comment: 207.1 Performed By: #### L 501.3620, L500.2500, L100.0100, L3600.5100, L501.4020 #### [facility] [address] [place], [address] Nucleated RBC (Bld) [#/Vol] 0 10*3/uL Normal 0-5 [facility] Comment on above: Order Comment: 207.1 Performed By: #### L 501.3620, L500.2500, L100.0100, L3600.5100, L501.4020 #### [facility] [address] [place], [address] Platelet mean volume (Bld) [Entitic vol] 9.5 fL Normal 6.2-12.0 [facility] Comment on above: Order Comment: 207.1 Performed By: #### L 501.3620, L500.2500, L100.0100, L3600.5100, L501.4020 #### [facility] [address] [place], [address] Platelets (Bld) [#/Vol] 184 10*3/uL Normal 150-450 [facility] Comment on above: Order Comment: 207.1 Performed By: #### L 501.3620, L500.2500, L100.0100, L3600.5100, L501.4020 #### [facility] [address] [place], [address] RBC (Bld) [#/Vol] 3.65 10*6/uL Low 4.2-5.4 [facility] Comment on above: Order Comment: .1 Performed By: #### L 501.3620, L500.2500, L100.0100, L3600.5100, L501.4020 #### [facility] [address] [place], [address] RDW SD 46.5 fl High 35.1-43.9 [facility] Comment on above: Order Comment: .1 Performed By: #### L 501.3620, L500.2500, L100.0100, L3600.5100, L501.4020 #### [facility] [address] [place], [address] WBC (Bld) [#/Vol] 7.0 10*3/uL Normal 4.4-11.0 [facility] Comment on above: Order Comment: . Performed By: #### L 501.3620, L500.2500, L100.0100, L3600.5100, L501.4020 #### [facility] [address] [place], [place], [id number] Carbon dioxide measurementOr dered By: Michaela Jaramillo on 02-13-2024 CO2 [Moles/Vol] 28.0 mmol/L 21.0-32.0 [facility] Chloride measurementOrdered By: Michaela Jaramillo on 02-13-2024 Chloride [Moles/Vol] 104 mmol/L 98-107 [facility] Eosinophil percentageOrdered By: Michaela Jaramillo on 02-13-2024 Eosinophils/100 WBC (Bld) 3.1 % 0-5 [facility] Erythrocyte distribution wid th ratioOrdered By: Michaela Jaramillo on 02-13-2024 Erythrocyte distribution width (RBC) [Ratio] 12.8 % 11.6-14.6 [facility] Erythrocyte distribution wid th standard deviationOrdered By: Michaela Jaramillo on 02-13-2024 Erythrocyte distribution width (RBC) [Entitic vol] 46.5 fL High 35.1-43.9 [facility] Estimated glomerular filtrat ion rate (GFR) AmericanOrdered By: Michaela Jaramillo on 02-13-2024 Estimated GFR (MDRD) Amer 71 mL/min >60 [facility] Comment on above: GFR Calc Glomerular filtration rate ( GFR) estimationOrdered By: Michaela Jaramillo on 02-13-2024 Estimated GFR (MDRD) Non-Af Amer 59 mL/min Low >60 [facility] Comment on above: Non- GFR Calc Glucose measurementOrdered B y: Michaela Jaramillo on 02-13-2024 Glucose [Mass/Vol] 192 mg/dL High 74-106 [facility] Comment on above: Fasting Glucose resu lt greater than or equal to 126 mg/dL suggests DIABETES MELLITUS per A.D.A. criteria. Hematocrit Auto (Bld) [Volum e fraction]Ordered By: Michaela Jaramillo on 02-13-2024 Hematocrit (Bld) [Volume fraction] 36.2 % Low 37-47 [facility] Hemoglobin A1c percentageOrd ered By: Michaela Jaramillo on 02-13-2024 HbA1c (Bld) [Mass fraction] 6.8 % High 3.8-5.6 [facility] Comment on above: Normal < 5.7 % Predi abetic 5.7 - 6.4 % Diabetic >or= 6.5 % Please note range changes. Order Comment: 207.1 Result Comment: Norm al < 5.7 % Prediabetic 5.7 - 6.4 % Diabetic >or= 6.5 % Please note range changes. Performed By: #### L 501.3620, L500.2500, L100.0100, L3600.5100, L501.4020 #### [facility] [address] [place], [place], [id number] Hemoglobin measurementOrdere d By: Michaela Jaramillo on 02-13-2024 Hemoglobin (Bld) [Mass/Vol] 12.1 g/dL 12.0-15.0 [facility] Immature granulocytes/100 WB C Auto (Bld)Ordered By: Michaela Jaramillo on 02-13-2024 Immature granulocytes/100 WBC (Bld) 0.900 % 0.0-0.9 [facility] Comment on above: IG% - Immature Granu locytes (promyelocytes, myelocytes and metamyelocytes) > 1% indicates that a LEFT SHIFT is Present. Lymphocytes Auto (Unsp spec) [#/Vol]Ordered By: Michaela Jaramillo on 02-13-2024 Lymphocytes (Bld) [#/Vol] 0.98 10*3/uL 0.83-4.51 [facility] Lymphocytes/100 WBC Auto (Un sp spec)Ordered By: Michaela Jaramillo on 02-13-2024 Lymphocytes/100 WBC (Bld) 14.0 % Low 19-41 [facility] MCV (mean corpuscular volume ) determinationOrdered By: Michaela Jaramillo on 02-13-2024 MCV (RBC) [Entitic vol] 99.2 fL High 81-99 [facility] Magnesiumon 02-13-2024 Magnesium [Mass/Vol] 1.7 mg/dL Normal 1.6-2.6 [facility] Comment on above: Order Comment: 207.1 Performed By: #### L 100.0100, L501.5200, L500.2500, L501.6710 #### [facility] [place] [address], [address] Magnesium measurementOrdered By: Michaela Jaramillo on 02-13-2024 Magnesium [Mass/Vol] 1.7 mg/dL 1.6-2.6 [facility] Mean corpuscular hemoglobin (MCH) determinationOrdered By: Michaela Jaramillo on 02-13-2024 MCH (RBC) [Entitic mass] 33.2 pg High 27.0-32.0 [facility] Mean corpuscular hemoglobin concentration (MCHC) determinationOrdered By: Michaela Jaramillo on 02-13-2024 MCHC (RBC) [Mass/Vol] 33.4 g/dL 32-36 [facility] Mean platelet volume determi nationOrdered By: Michaela Jaramillo on 02-13-2024 Platelet mean volume (Bld) [Entitic vol] 9.5 fL 6.2-12.0 [facility] Monocyte percentageOrdered B y: Michaela Jaramillo on 02-13-2024 Monocytes/100 WBC (Bld) 9.7 % 0-10 [facility] Neutrophil percentageOrdered By: Michaela Jaramillo on 02-13-2024 Neutrophils/100 WBC (Bld) 71.9 % High 47-70 [facility] Nucleated red blood cell per centageOrdered By: Michaela Jaramillo on 02-13-2024 Nucleated RBC/100 WBC (Bld) [Ratio] 0 % 0-5 [facility] Platelet countOrdered By: Steven Jaramillo on 02-13-2024 Platelets (Bld) [#/Vol] 184 10*3/uL 150-450 [facility] Potassium measurementOrdered By: Michaela Jaramillo on 02-13-2024 Potassium [Moles/Vol] 3.8 mmol/L 3.5-5.1 [facility] RBC Auto (Bld) [#/Vol]Ordere d By: Michaela Jaramillo on 02-13-2024 RBC (Bld) [#/Vol] 3.65 10*6/uL Low 4.2-5.4 [facility] Serum anion gap measurementO rdered By: Michaela Jaramillo on 02-13-2024 Anion gap [Moles/Vol] 6 mmol/L 5-15 [facility] Serum or plasma calcium olive urement (mass/volume)Ordered By: Michaela Jaramillo on 02-13-2024 Calcium [Mass/Vol] 8.7 mg/dL 8.5-10.1 [facility] Serum or plasma creatinine m easurement (mass/volume)Ordered By: Michaela Jaramillo on 02-13-2024 Creatinine [Mass/Vol] 0.98 mg/dL 0.55-1.02 [facility] Comment on above: The validity of the calculated GFR & GFRAA in patients over 70 years has not been determined. Clinical correlation is essential. Serum or plasma urea nitroge n measurement (mass/volume)Ordered By: Michaela Jaramillo on 02-13-2024 Urea nitrogen [Mass/Vol] 12 mg/dL 7-18 [facility] Sodium levelOrdered By: Jaycee Jaramillo on 02-13-2024 Sodium [Moles/Vol] 138 mmol/L 136-145 [facility] TSH QnOrdered By: Michaela rosales on 02-13-2024 Thyroid Stimulating Hormone (TSH) 15.000 uIU/mL High 0.358-3.740 [facility] Thyroid Stim Hormone (TSH)on 02-13-2024 TSH 15.000 uIU/mL High 0.358-3.740 [facility] Comment on above: Order Comment: .1 Performed By: #### L 100.0100, L501.5200, L500.2500, L501.6710 #### [facility] [address] [place], [address] Vitamin B12on 02-13-2024 Cobalamin (Vitamin B12) [Mass/Vol] 493 pg/mL Normal [facility] Comment on above: Order Comment: . Performed By: #### L 100.0100, L501.5200, L500.2500, L501.6710 #### [facility] [address] [place], [place], [id number] Vitamin B12 measurementOrder ed By: Michaela Jaramillo on 02-13-2024 Cobalamin (Vitamin B12) [Mass/Vol] 493 pg/mL [facility] Vitamin D,25 Hydroxyon 02-12 Vitamin D 25-OH 18.4 ng/mL Normal [facility] Comment on above: Order Comment: .1 Result Comment: Rebeca min D 25(OH) Status Range Deficiency <20 ng/mL (50nmol/L) Insufficiency 20 - 30 ng/mL (50 - 75 nmol/L) Sufficiency 30 - 100 ng/mL (75 - 250 nmol/L) Toxicity >100 ng/mL (>250 nmol/L) Performed By: #### L 100.0100, L501.5200, L500.2500, L501.6710 #### [facility] [address] [place], [address] White blood cell (WBC) count Ordered By: Michaela Jaramillo on 02-13-2024 WBC (Bld) [#/Vol] 7.0 10*3/uL 4.4-11.0 [facility] LABORATORYOrdered By: Abimael Kulkarni on 02-10-2024 Blood Glucose Testing Reason Routine (02/10/24 7:37 AM) [facility] Work Phone: Glucose [Mass/Vol] 134 mg/dL High 82 - 115 mg/dL [facility] Work Phone: LABORATORYOrdered By: Lisseth Ahumada on 02-09-2024 Blood Glucose Testing Reason Routine (02/09/24 8:32 PM) [facility] Work Phone: Glucose [Mass/Vol] 135 mg/dL High 82 - 115 mg/dL [facility] Work Phone: LABORATORYOrdered By: Nacho Johnson on 02-09-2024 Blood Glucose Testing Reason Routine (02/09/24 4:03 PM) [facility] Work Phone: Glucose [Mass/Vol] 110 mg/dL Normal 82 - 115 mg/dL [facility] Work Phone: LABORATORYOrdered By: Alyssa Obrien on 02-03-2024 Glucose [Mass/Vol] 139 mg/dL High 82 - 115 mg/dL [facility] Work Phone: LABORATORYOrdered By: Lázaro Cruz on 02-03-2024 Glucose [Mass/Vol] 146 mg/dL High 82 - 115 mg/dL [facility] Work Phone: LABORATORYOrdered By: Kristin preston on 02-03-2024 Blood Glucose Testing Reason Routine (02/03/24 7:33 AM) [facility] Work Phone: Glucose [Mass/Vol] 139 mg/dL High 82 - 115 mg/dL [facility] Work Phone: LABORATORYOrdered By: Jyoti Copeland on 02-02-2024 Blood Glucose Testing Reason Routine (02/02/24 9:42 PM) [facility] Work Phone: Time of Stated Blood Glucose [phone] [facility] Work Phone: LABORATORYOrdered By: Lázaro Cruz on 02-02-2024 Blood Glucose Testing Reason Routine (02/02/24 11:52 AM) [facility] Work Phone: LABORATORYOrdered By: Jyoti Copeland on 02-01-2024 Time of Stated Blood Glucose [id number] [facility] Work Phone: Time of Stated Blood Glucose [phone] [facility] Work Phone: Preliminary Reporton Preliminary Report . Pathology Reports Accession: Collected Date/Time: Received Date/Time: Pathologist: [id number] 01/30/2024 11:44 EST 01/31/2024 07:47 IRENE CHAHAL MD Preliminary Report Preliminary Discussion A. BRAIN, [...] Sign out Date: 02/01/2024 09:49 Performing Lab: [facility], [address] [place] [address] Pathology Dept Normal [facility] .Auto Diffon 01-31-2024 Basophil, Absolute 0.0 10 3/mcL Normal 0.0-0.3 [facility] Comment on above: Performed By: #### A DIFF, GFR, CBC, BMP, ANEU #### [address] [address] Basophils/100 WBC (Bld) 0.1 % Normal 0.0-2.5 [facility] Comment on above: Performed By: #### A DIFF, GFR, CBC, BMP, ANEU #### [address] [address] Eosinophil, Absolute 0.0 10 3/mcL Normal 0.0-0.7 [facility] Comment on above: Performed By: #### A DIFF, GFR, CBC, BMP, ANEU #### [address] [address] Eosinophils/100 WBC (Bld) 0.0 % Normal 0.0-6.0 [facility] Comment on above: Performed By: #### A DIFF, GFR, CBC, BMP, ANEU #### [address] [address] Lymphocyte, Absolute 0.8 10 3/mcL Low 0.9-4.3 [facility] Comment on above: Performed By: #### A DIFF, GFR, CBC, BMP, ANEU #### [address] [address] Lymphocytes/100 WBC (Bld) 6.4 % Low 20.0-40.0 [facility] Comment on above: Performed By: #### A DIFF, GFR, CBC, BMP, ANEU #### [address] [address] Monocyte, Absolute 0.6 10 3/mcL Normal 0.1-1.4 [facility] Comment on above: Performed By: #### A DIFF, GFR, CBC, BMP, ANEU #### [address] [address] Monocytes/100 WBC (Bld) 4.6 % Normal 2.0-13.0 [facility] Comment on above: Performed By: #### A DIFF, GFR, CBC, BMP, ANEU #### [address] [address] Neutrophils/100 WBC (Bld) 88.9 % High 50.0-75.0 [facility] Comment on above: Performed By: #### A DIFF, GFR, CBC, BMP, ANEU #### [address] [address] .GFRon 01-31-2024 GFR >60 [facility] MAIN Comment on above: Result Comment: [...] A DIFF, GFR, CBC, BMP, ANEU #### [place] [address] GFR Non- >60 [facility] MAIN Comment on above: Result Comment: GFR [...] A DIFF, GFR, CBC, BMP, ANEU #### [address] [address] .NEUABSon 01-31-2024 Neutrophil, Absolute 10.7 10 3/mcL High 2.3-8.1 [facility] Comment on above: Performed By: #### A DIFF, GFR, CBC, BMP, ANEU #### [place] [address] CBCon 01-31-2024 Erythrocyte distribution width (RBC) [Ratio] 13.5 % Normal 11.5-15.5 [facility] Comment on above: Performed By: #### A DIFF, GFR, CBC, BMP, ANEU #### [place] [address] Hematocrit (Bld) [Volume fraction] 37.6 % Normal 34.0-46.0 [facility] Comment on above: Performed By: #### A DIFF, GFR, CBC, BMP, ANEU #### [place] [address] Hgb 13.3 G/dL Normal 12.0-16.0 [facility] Comment on above: Performed By: #### A DIFF, GFR, CBC, BMP, ANEU #### [place] [address] MCH (RBC) [Entitic mass] 34.1 pg High 27.0-33.0 [facility] Comment on above: Performed By: #### A DIFF, GFR, CBC, BMP, ANEU #### [place] [address] MCHC 35.5 G/dL Normal 32.0-36.0 [facility] Comment on above: Performed By: #### A DIFF, GFR, CBC, BMP, ANEU #### [place] [address] MCV (RBC) [Entitic vol] 96.0 fL Normal 80.0-99.0 [facility] Comment on above: Performed By: #### A DIFF, GFR, CBC, BMP, ANEU #### [place] [address] Platelet 271 10 3/mcL Normal 150-450 [facility] Comment on above: Performed By: #### A DIFF, GFR, CBC, BMP, ANEU #### [place] [address] Platelet mean volume (Bld) [Entitic vol] 6.6 fL Normal 6.6-10.5 [facility] Comment on above: Performed By: #### A DIFF, GFR, CBC, BMP, ANEU #### [place] [address] RBC 3.92 10 6/mcL Low 4.10-5.30 [facility] Comment on above: Performed By: #### A DIFF, GFR, CBC, BMP, ANEU #### [place] [address] WBC 12.0 10 3/mcL High 4.5-10.8 [facility] Comment on above: Performed By: #### A DIFF, GFR, CBC, BMP, ANEU #### [place] [address] CMPon 01-31-2024 Albumin Level 2.7 G/dL Low 3.2-4.8 [facility] Comment on above: Performed By: #### A DIFF, GFR, CBC, BMP, ANEU #### [place] [address] Albumin/Globulin [Mass ratio] 1.0 {ratio} Normal 0.9-1.6 [facility] Comment on above: Performed By: #### A DIFF, GFR, CBC, BMP, ANEU #### [place] [address] ALP [Catalytic activity/Vol] 119 U/L Normal 38-126 [facility] Comment on above: Performed By: #### A DIFF, GFR, CBC, BMP, ANEU #### [place] [address] ALT [Catalytic activity/Vol] 29 U/L Normal 10-49 [facility] Comment on above: Performed By: #### A DIFF, GFR, CBC, BMP, ANEU #### [place] [id number] AST [Catalytic activity/Vol] 15 U/L Normal 8-34 [facility] Comment on above: Performed By: #### A DIFF, GFR, CBC, BMP, ANEU #### [place] [address] Bili Total 0.70 mg/dL Normal 0.20-1.20 [facility] Comment on above: Result Comment: Use of this assay is not recommended for patients undergoing treatment with eltrombopag due to the potential for falsely elevated results. Performed By: #### A DIFF, GFR, CBC, BMP, ANEU #### [address] [address] BUN/Creatinine Ratio 16.7 ratio Normal 10.0-22.0 [facility] Comment on above: Performed By: #### A DIFF, GFR, CBC, BMP, ANEU #### [address] [address] Calcium [Mass/Vol] 8.4 mg/dL Low 8.7-10.4 [facility] Comment on above: Performed By: #### A DIFF, GFR, CBC, BMP, ANEU #### [place] [id number] Chloride [Moles/Vol] 107 mmol/L Normal 98-110 [facility] Comment on above: Performed By: #### A DIFF, GFR, CBC, BMP, ANEU #### [address] [address] CO2 [Moles/Vol] 25 mmol/L Normal 22-32 [facility] Comment on above: Performed By: #### A DIFF, GFR, CBC, BMP, ANEU #### [address] [address] Creatinine [Mass/Vol] 0.78 mg/dL Normal 0.50-1.20 [facility] Comment on above: Result Comment: Test ing performed on Cyanogen analyzer using enzymatic creatinine methodology. Performed By: #### A DIFF, GFR, CBC, BMP, ANEU #### [address] [address] Electrolyte Balance 8.0 mEq/L Normal 4.0-15.0 [facility] MA[facility] Comment on above: Performed By: #### A DIFF, GFR, CBC, BMP, ANEU #### [address] [address] Globulin 2.7 G/dL Normal 1.5-3.8 [facility] Comment on above: Performed By: #### A DIFF, GFR, CBC, BMP, ANEU #### [address] [address] Glucose [Mass/Vol] 209 mg/dL High 82-115 [facility] MAIN Comment on above: Performed By: #### A DIFF, GFR, CBC, BMP, ANEU #### [address] [address] Potassium [Moles/Vol] 4.5 mmol/L Normal 3.5-5.0 [facility] Comment on above: Performed By: #### A DIFF, GFR, CBC, BMP, ANEU #### [address] [address] Sodium [Moles/Vol] 140 mmol/L Normal 136-145 [facility] MA[facility] Comment on above: Performed By: #### A DIFF, GFR, CBC, BMP, ANEU #### [address] [address] Total Protein 5.4 G/dL Low 5.7-8.2 [facility] Comment on above: Performed By: #### A DIFF, GFR, CBC, BMP, ANEU #### [address] [address] Urea nitrogen [Mass/Vol] 13.0 mg/dL Normal 8.0-22.0 [facility] Comment on above: Performed By: #### A DIFF, GFR, CBC, BMP, ANEU #### [address] [address] LABORATORYOrdered By: SYSTEM SYSTEM on 01-31-2024 Albumin BCP dye [Mass/Vol] 2.7 G/dL Low 3.2 - 4.8 G/dL ADM SS Albumin/Globulin [Mass ratio] 1.0 {ratio} Normal 0.9 - 1.6 ratio ADM SS ALP [Catalytic activity/Vol] 119 U/L Normal 38 - 126 U/L ADM SS ALT No additional P-5'-P [Catalytic activity/Vol] 29 U/L Normal 10 - 49 U/L ADM SS AST [Catalytic activity/Vol] 15 U/L Normal 8 - 34 U/L ADM [...] above: Interpretive Data: T esting performed on Cyanogen analyzer using enzymatic creatinine methodology. Electrolyte Balance [...] 37.6 % Normal 34.0 - 46.0 % AH Workflow SS Hemoglobin (Bld) [Mass/Vol] 13.3 G/dL Normal 12.0 - 16.0 G/dL [facility] Workflow SS Lymphocytes (Bld) [#/Vol] 0.8 103/mcL Low 0.9 - 4.3 10^3/mcL [facility] Workflow SS Lymphocytes/100 WBC (Bld) 6.4 % Low 20.0 - 40.0 % AH Workflow SS Magnesium [Mass/Vol] 3.0 mg/dL High 1.6 - 2 .4 mg/dL ADM SS MCH (RBC) [Entitic mass] 34.1 pg High 27.0 - 33.0 pg AH Workflow SS MCHC 35.5 G/dL Normal 32.0 - 36.0 G/dL AH Workflow SS MCV (RBC) [Entitic vol] 96.0 fL Normal 80.0 - 99.0 fL AH Workflow SS Monocytes (Bld) [#/Vol] 0.6 103/mcL Normal 0.1 - 1.4 10^3/mcL AH Workflow SS Monocytes/100 WBC (Bld) 4.6 % Normal 2.0 - 13.0 % Workflow SS Neutrophils (Bld) [#/Vol] 10.7 103/mcL High 2.3 - 8.1 10^3/mcL AH Workflow SS Neutrophils/100 WBC (Bld) 88.9 % High 50.0 - 75.0 % Workflow SS Platelet mean volume (Bld) [Entitic vol] 6.6 fL Normal 6.6 - 10.5 fL Workflow SS Platelets (Bld) [#/Vol] 271 103/mcL Normal 150 - 450 10^3/mcL AH Workflow SS Potassium [Moles/Vol] 4.5 mmol/L Normal 3.5 - 5.0 mEq/L ADM SS Protein [Mass/Vol] 5.4 G/dL Low 5.7 - 8.2 G/dL ADM SS RBC (Bld) [#/Vol] 3.92 106/mcL Low 4.10 - 5.3 0 10^6/mcL Workflow SS Sodium [Moles/Vol] 140 mmol/L Normal 136 - 145 mEq/L ADM SS Urea nitrogen [Mass/Vol] 13.0 mg/dL Normal 8.0 - 22.0 mg/dL ADM SS Urea nitrogen/Creatinine [Mass ratio] 16.7 ratio Normal 10.0 - 22.0 ratio ADM SS WBC (Bld) [#/Vol] 12.0 103/mcL High 4.5 - 10.8 10^3/mcL Workflow SS MGon 01-31-2024 Magnesium [Mass/Vol] 3.0 mg/dL High 1.6-2.4 [facility] MAIN Comment on above: Performed By: #### A DIFF, GFR, CBC, BMP, ANEU #### [place] [address] MRI BRAIN W/ + W/O CONTRASTo n [...] 01/31/2024 9:21:14 AM Ordering Provider: WANG Danielle [facility] MAIN .Auto Diffon 01-30-2024 Basophil, Absolute 0.0 10 3/mcL Normal 0.0-0.3 [facility] MA[facility] Comment on above: Performed By: #### G FR, CMP, CBC, LD, ADIFF, ANEU #### [address] [address] Basophils/100 WBC (Bld) 0.1 % Normal 0.0-2.5 [facility] MAIN Comment on above: Performed By: #### G FR, CMP, CBC, LD, ADIFF, ANEU #### [address] [address] Eosinophil, Absolute 0.0 10 3/mcL Normal 0.0-0.7 [facility] MAIN Comment on above: Performed By: #### G FR, CMP, CBC, LD, ADIFF, ANEU #### [address] [address] Eosinophils/100 WBC (Bld) 0.0 % Normal 0.0-6.0 [facility] MAIN Comment on above: Performed By: #### G FR, CMP, CBC, LD, ADIFF, ANEU #### [address] [address] Lymphocyte, Absolute 0.8 10 3/mcL Low 0.9-4.3 [facility] MAIN Comment on above: Performed By: #### G FR, CMP, CBC, LD, ADIFF, ANEU #### [address] [address] Lymphocytes/100 WBC (Bld) 5.2 % Low 20.0-40.0 [facility] MAIN Comment on above: Performed By: #### G FR, CMP, CBC, LD, ADIFF, ANEU #### [address] [address] Monocyte, Absolute 0.8 10 3/mcL Normal 0.1-1.4 [facility] MAIN Comment on above: Performed By: #### G FR, CMP, CBC, LD, ADIFF, ANEU #### [address] [address] Monocytes/100 WBC (Bld) 5.5 % Normal 2.0-13.0 [facility] MAIN Comment on above: Performed By: #### G FR, CMP, CBC, LD, ADIFF, ANEU #### [address] [address] Neutrophils/100 WBC (Bld) 89.2 % High 50.0-75.0 [facility] MAIN Comment on above: Performed By: #### G FR, CMP, CBC, LD, ADIFF, ANEU #### [address] [address] Basophil, Absolute 0.0 10 3/mcL Normal 0.0-0.3 [facility] MAIN Comment on above: Performed By: #### A DIFF, GFR, CBC, BMP, ANEU #### [address] [address] Basophils/100 WBC (Bld) 0.1 % Normal 0.0-2.5 [facility] MAIN Comment on above: Performed By: #### A DIFF, GFR, CBC, BMP, ANEU #### [address] [address] Eosinophil, Absolute 0.0 10 3/mcL Normal 0.0-0.7 [facility] MAIN Comment on above: Performed By: #### A DIFF, GFR, CBC, BMP, ANEU #### [address] [address] Eosinophils/100 WBC (Bld) 0.2 % Normal 0.0-6.0 [facility] MAIN Comment on above: Performed By: #### A DIFF, GFR, CBC, BMP, ANEU #### [address] [address] Lymphocyte, Absolute 1.0 10 3/mcL Normal 0.9-4.3 [facility] MAIN Comment on above: Performed By: #### A DIFF, GFR, CBC, BMP, ANEU #### [address] [address] Lymphocytes/100 WBC (Bld) 10.9 % Low 20.0-40.0 [facility] MAIN Comment on above: Performed By: #### A DIFF, GFR, CBC, BMP, ANEU #### [address] [address] Monocyte, Absolute 0.5 10 3/mcL Normal 0.1-1.4 [facility] MAIN Comment on above: Performed By: #### A DIFF, GFR, CBC, BMP, ANEU #### [address] [address] Monocytes/100 WBC (Bld) 5.8 % Normal 2.0-13.0 [facility] MAIN Comment on above: Performed By: #### A DIFF, GFR, CBC, BMP, ANEU #### [address] [address] Neutrophils/100 WBC (Bld) 83.0 % High 50.0-75.0 [facility] MAIN Comment on above: Performed By: #### A DIFF, GFR, CBC, BMP, ANEU #### [address] [address] .GFRon 01-30-2024 GFR >60 Normal [facility] MAIN Comment on above: Result Comment: GFR [...] A DIFF, GFR, CBC, BMP, ANEU #### [address] [address] GFR Non- >60 [facility] MAIN Comment on above: Result Comment: GFR [...] A DIFF, GFR, CBC, BMP, ANEU #### [address] [address] GFR Non- >60 [facility] MAIN Comment on above: Result Comment: GFR [...] A DIFF, GFR, CBC, BMP, ANEU #### [address] [address] GFR >60 Normal [facility] MAIN Comment on above: Result Comment: GFR [...] A DIFF, GFR, CBC, BMP, ANEU #### [address] [address] .NEUABSon 01-30-2024 Neutrophil, Absolute 13.0 10 3/mcL High 2.3-8.1 [facility] MAIN Comment on above: Performed By: #### G FR, CMP, CBC, LD, ADIFF, ANEU #### [address] [address] Neutrophil, Absolute 7.9 10 3/mcL Normal 2.3-8.1 [facility] MAIN Comment on above: Performed By: #### A DIFF, GFR, CBC, BMP, ANEU #### [address] [address] ABO/Rh (Gel)on 01-30-2024 ABO/Rh Interp Positive Invalid Interpretation Code [facility] MAIN Comment on above: Performed By: #### G FR, CMP, CBC, LD, ADIFF, ANEU #### [address] [address] ABS (Gel)on 01-30-2024 ABSC Interp (Gel) Negative Normal [facility] MAIN Comment on above: Performed By: #### G FR, CMP, CBC, LD, ADIFF, ANEU #### [address] [address] APTTon 01-30-2024 aPTT Coag (Bld) [Time] 24.9 s Low 25.0-35.0 [facility] MAIN Comment on above: Result Comment: For Heparin anticoagulation therapy, the recommended therapeutic range is: 54-77 seconds (APTT Correlation with Anti-Xa therapeutic range of 0.3-0.7 units/ml). PLEASE REFERENCE THE PHARMACY PROTOCOL FOR DOSING. Performed By: #### A DIFF, GFR, CBC, BMP, ANEU #### [place] [id number] BGon 01-30-2024 Base excess Calc (Bld) [Moles/Vol] -2.4000 mmol/L Normal [facility] MAIN Comment on above: Performed By: #### G FR, CMP, CBC, LD, ADIFF, ANEU #### [place] [address] CO2 [Moles/Vol] 21.4 mmol/L Low 22.0-30.0 [facility] MAIN Comment on above: Performed By: #### G FR, CMP, CBC, LD, ADIFF, ANEU #### [place] [address] HCO3 (Bld) [Moles/Vol] 20.4 mmol/L Low 21.0-29.0 [facility] MAIN Comment on above: Performed By: #### G FR, CMP, CBC, LD, ADIFF, ANEU #### [place] [phone] Oxygen (Bld) [Partial pressure] 219.0 mm[Hg] High 74.0-108.0 [facility] MAIN Comment on above: Performed By: #### G FR, CMP, CBC, LD, ADIFF, ANEU #### [place] [phone] Oxygen saturation in Blood 99.3 % High 92.0-96.0 [facility] MAIN Comment on above: Performed By: #### G FR, CMP, CBC, LD, ADIFF, ANEU #### [place] [phone] pCO2 30.3 mmHg Low 32.0-46.0 [facility] MAIN Comment on above: Performed By: #### G FR, CMP, CBC, LD, ADIFF, ANEU #### [address] [address] pH (Bld) 7.447 [pH] Normal 7.380-7.460 [facility] MAIN Comment on above: Performed By: #### G FR, CMP, CBC, LD, ADIFF, ANEU #### [address] [address] Base excess Calc (Bld) [Moles/Vol] -1.1000 mmol/L Normal [facility] MAIN Comment on above: Performed By: #### G FR, CMP, CBC, LD, ADIFF, ANEU #### [place] [phone] CO2 [Moles/Vol] 23.5 mmol/L Normal 22.0-30.0 [facility] MAIN Comment on above: Performed By: #### G FR, CMP, CBC, LD, ADIFF, ANEU #### [place] [phone] HCO3 (Bld) [Moles/Vol] 22.5 mmol/L Normal 21.0-29.0 [facility] MAIN Comment on above: Performed By: #### G FR, CMP, CBC, LD, ADIFF, ANEU #### [place] [phone] Oxygen (Bld) [Partial pressure] 266.6 mm[Hg] High 74.0-108.0 [facility] MAIN Comment on above: Performed By: #### G FR, CMP, CBC, LD, ADIFF, ANEU #### [place] [phone] Oxygen saturation in Blood 99.6 % High 92.0-96.0 [facility] MAIN Comment on above: Performed By: #### G FR, CMP, CBC, LD, ADIFF, ANEU #### [address] [address] pCO2 34.1 mmHg Normal 32.0-46.0 [facility] MAIN Comment on above: Performed By: #### G FR, CMP, CBC, LD, ADIFF, ANEU #### [place] [phone] pH (Bld) 7.437 [pH] Normal 7.380-7.460 [facility] MAIN Comment on above: Performed By: #### G FR, CMP, CBC, LD, ADIFF, ANEU #### [address] [address] BGOHon 01-30-2024 Patient Location [facility] MAIN Comment on above: Performed By: #### G FR, CMP, CBC, LD, ADIFF, ANEU #### [place] [address] Patient Location [facility] MAIN Comment on above: Performed By: #### G FR, CMP, CBC, LD, ADIFF, ANEU #### [address] 01-30-2024 BUN/Creatinine Ratio 19.7 ratio Normal 10.0-22.0 [facility] MAIN Comment on above: Performed By: #### G FR, CMP, CBC, LD, ADIFF, ANEU #### [place] [address] Calcium [Mass/Vol] 8.2 mg/dL Low 8.7-10.4 [facility] MAIN Comment on above: Performed By: #### G FR, CMP, CBC, LD, ADIFF, ANEU #### [place] [address] Chloride [Moles/Vol] 107 mmol/L Normal 98-110 [facility] MAIN Comment on above: Performed By: #### G FR, CMP, CBC, LD, ADIFF, ANEU #### [place] [address] CO2 [Moles/Vol] 23 mmol/L Normal 22-32 [facility] MAIN Comment on above: Performed By: #### G FR, CMP, CBC, LD, ADIFF, ANEU #### [place] [address] Creatinine [Mass/Vol] 0.66 mg/dL Normal 0.50-1.20 [facility] MAIN Comment on above: Result Comment: Test ing performed on Cyanogen analyzer using enzymatic creatinine methodology. Performed By: #### G FR, CMP, CBC, LD, ADIFF, ANEU #### [address] [address] Electrolyte Balance 10.0 mEq/L Normal 4.0-15.0 [facility] MAIN Comment on above: Performed By: #### G FR, CMP, CBC, LD, ADIFF, ANEU #### [address] [address] Glucose [Mass/Vol] 265 mg/dL High 82-115 [facility] MAIN Comment on above: Performed By: #### G FR, CMP, CBC, LD, ADIFF, ANEU #### [address] [address] Potassium [Moles/Vol] 3.4 mmol/L Low 3.5-5.0 [facility] MAIN Comment on above: Performed By: #### G FR, CMP, CBC, LD, ADIFF, ANEU #### [address] [address] Sodium [Moles/Vol] 140 mmol/L Normal 136-145 [facility] MAIN Comment on above: Performed By: #### G FR, CMP, CBC, LD, ADIFF, ANEU #### [address] [address] Urea nitrogen [Mass/Vol] 13.0 mg/dL Normal 8.0-22.0 [facility] MAIN Comment on above: Performed By: #### G FR, CMP, CBC, LD, ADIFF, ANEU #### [address] [address] BUN/Creatinine Ratio 24.3 ratio High 10.0-22.0 [facility] MAIN Comment on above: Performed By: #### A DIFF, GFR, CBC, BMP, ANEU #### [address] [address] Calcium [Mass/Vol] 9.1 mg/dL Normal 8.7-10.4 [facility] MAIN Comment on above: Performed By: #### A DIFF, GFR, CBC, BMP, ANEU #### [address] [address] Chloride [Moles/Vol] 108 mmol/L Normal 98-110 [facility] MAIN Comment on above: Performed By: #### A DIFF, GFR, CBC, BMP, ANEU #### [address] [address] CO2 [Moles/Vol] 25 mmol/L Normal 22-32 [facility] MAIN Comment on above: Performed By: #### A DIFF, GFR, CBC, BMP, ANEU #### [address] [address] Creatinine [Mass/Vol] 0.74 mg/dL Normal 0.50-1.20 [facility] MAIN Comment on above: Result Comment: Test ing performed on Cyanogen analyzer using enzymatic creatinine methodology. Performed By: #### A DIFF, GFR, CBC, BMP, ANEU #### [address] [address] Electrolyte Balance 8.0 mEq/L Normal 4.0-15.0 [facility] MAIN Comment on above: Performed By: #### A DIFF, GFR, CBC, BMP, ANEU #### [address] [address] Glucose [Mass/Vol] 177 mg/dL High 82-115 [facility] MAIN Comment on above: Performed By: #### A DIFF, GFR, CBC, BMP, ANEU #### [address] [address] Potassium [Moles/Vol] 4.2 mmol/L Normal 3.5-5.0 [facility] MAIN Comment on above: Performed By: #### A DIFF, GFR, CBC, BMP, ANEU #### [address] [address] Sodium [Moles/Vol] 141 mmol/L Normal 136-145 [facility] MAIN Comment on above: Performed By: #### A DIFF, GFR, CBC, BMP, ANEU #### [address] [address] Urea nitrogen [Mass/Vol] 18.0 mg/dL Normal 8.0-22.0 [facility] MAIN Comment on above: Performed By: #### A DIFF, GFR, CBC, BMP, ANEU #### [place] [address] CAORon 01-30-2024 Calcium Ionized OR 1.13 mmol/L Normal 1.12-1.32 [facility] MAIN Comment on above: Performed By: #### G FR, CMP, CBC, LD, ADIFF, ANEU #### [place] [address] Calcium Ionized OR 1.14 mmol/L Normal 1.12-1.32 [facility] MAIN Comment on above: Performed By: #### G FR, CMP, CBC, LD, ADIFF, ANEU #### [place] [address] CBCon 01-30-2024 Erythrocyte distribution width (RBC) [Ratio] 13.4 % Normal 11.5-15.5 [facility] MAIN Comment on above: Performed By: #### G FR, CMP, CBC, LD, ADIFF, ANEU #### [place] [address] Hematocrit (Bld) [Volume fraction] 40.6 % Normal 34.0-46.0 [facility] MAIN Comment on above: Performed By: #### G FR, CMP, CBC, LD, ADIFF, ANEU #### [place] [address] Hgb 14.5 G/dL Normal 12.0-16.0 [facility] MAIN Comment on above: Performed By: #### G FR, CMP, CBC, LD, ADIFF, ANEU #### [place] [address] MCH (RBC) [Entitic mass] 34.2 pg High 27.0-33.0 [facility] MAIN Comment on above: Performed By: #### G FR, CMP, CBC, LD, ADIFF, ANEU #### [place] [address] MCHC 35.7 G/dL Normal 32.0-36.0 [facility] MAIN Comment on above: Performed By: #### G FR, CMP, CBC, LD, ADIFF, ANEU #### [place] [address] MCV (RBC) [Entitic vol] 96.0 fL Normal 80.0-99.0 [facility] MAIN Comment on above: Performed By: #### G FR, CMP, CBC, LD, ADIFF, ANEU #### [place] [address] Platelet 285 10 3/mcL Normal 150-450 [facility] MAIN Comment on above: Performed By: #### G FR, CMP, CBC, LD, ADIFF, ANEU #### [place] [address] Platelet mean volume (Bld) [Entitic vol] 7.0 fL Normal 6.6-10.5 [facility] MAIN Comment on above: Performed By: #### G FR, CMP, CBC, LD, ADIFF, ANEU #### [place] [address] RBC 4.22 10 6/mcL Normal 4.10-5.30 [facility] MAIN Comment on above: Performed By: #### G FR, CMP, CBC, LD, ADIFF, ANEU #### [place] [address] WBC 14.5 10 3/mcL High 4.5-10.8 [facility] MAIN Comment on above: Performed By: #### G FR, CMP, CBC, LD, ADIFF, ANEU #### [place] [address] Erythrocyte distribution width (RBC) [Ratio] 12.8 % Normal 11.5-15.5 [facility] MAIN Comment on above: Performed By: #### A DIFF, GFR, CBC, BMP, ANEU #### [place] [address] Hematocrit (Bld) [Volume fraction] 41.2 % Normal 34.0-46.0 [facility] MAIN Comment on above: Performed By: #### A DIFF, GFR, CBC, BMP, ANEU #### [place] [address] Hgb 14.2 G/dL Normal 12.0-16.0 [facility] MAIN Comment on above: Performed By: #### A DIFF, GFR, CBC, BMP, ANEU #### [address] [address] MCH (RBC) [Entitic mass] 32.9 pg Normal 27.0-33.0 [facility] MAIN Comment on above: Performed By: #### A DIFF, GFR, CBC, BMP, ANEU #### [address] [address] MCHC 34.5 G/dL Normal 32.0-36.0 [facility] MAIN Comment on above: Performed By: #### A DIFF, GFR, CBC, BMP, ANEU #### [address] [address] MCV (RBC) [Entitic vol] 95.2 fL Normal 80.0-99.0 [facility] MAIN Comment on above: Performed By: #### A DIFF, GFR, CBC, BMP, ANEU #### [place] [phone] Platelet 246 10 3/mcL Normal 150-450 [facility] MAIN Comment on above: Performed By: #### A DIFF, GFR, CBC, BMP, ANEU #### [address] [address] Platelet mean volume (Bld) [Entitic vol] 7.2 fL Normal 6.6-10.5 [facility] MAIN Comment on above: Performed By: #### A DIFF, GFR, CBC, BMP, ANEU #### [place] [phone] RBC 4.32 10 6/mcL Normal 4.10-5.30 [facility] MAIN Comment on above: Performed By: #### A DIFF, GFR, CBC, BMP, ANEU #### [address] [address] WBC 9.5 10 3/mcL Normal 4.5-10.8 [facility] MAIN Comment on above: Performed By: #### A DIFF, GFR, CBC, BMP, ANEU #### [place] [phone] FIBon 01-30-2024 Fibrinogen 284 mg/dL Normal 250-560 [facility] MAIN Comment on above: Performed By: #### A DIFF, GFR, CBC, BMP, ANEU #### [address] [address] GLUORon 01-30-2024 Glucose [Mass/Vol] 166 mg/dL High 82-115 [facility] MAIN Comment on above: Performed By: #### G FR, CMP, CBC, LD, ADIFF, ANEU #### [place] [address] Glucose [Mass/Vol] 121 mg/dL High 82-115 [facility] MAIN Comment on above: Performed By: #### G FR, CMP, CBC, LD, ADIFF, ANEU #### [address] [address] HCTORon 01-30-2024 Hematocrit (Bld) [Volume fraction] 42.0 % Normal 37.0-47.0 [facility] MAIN Comment on above: Performed By: #### G FR, CMP, CBC, LD, ADIFF, ANEU #### [place] [address] Hematocrit (Bld) [Volume fraction] 40.0 % Normal 37.0-47.0 [facility] MAIN Comment on above: Performed By: #### G FR, CMP, CBC, LD, ADIFF, ANEU #### [place] [address] HGBORon 01-30-2024 Hemoglobin OR 14.4 G/dL Normal 12.0-16.0 [facility] MAIN Comment on above: Performed By: #### G FR, CMP, CBC, LD, ADIFF, ANEU #### [place] [address] Hemoglobin OR 13.5 G/dL Normal 12.0-16.0 [facility] MAIN Comment on above: Performed By: #### G FR, CMP, CBC, LD, ADIFF, ANEU #### [place] [phone] KORon 01-30-2024 Potassium [Moles/Vol] 3.7 mmol/L Normal 3.5-5.0 [facility] MAIN Comment on above: Performed By: #### G FR, CMP, CBC, LD, ADIFF, ANEU #### [address] [address] Potassium [Moles/Vol] 3.4 mmol/L Low 3.5-5.0 [facility] MAIN Comment on above: Performed By: #### G FR, CMP, CBC, LD, ADIFF, BENJI #### [address] [address] LABORATORYOrdered By: SYSTEM SYSTEM on 01-30-2024 Basophils [...] above: Interpretive Data: T esting performed on ChemDAQ CH analyzer using enzymatic creatinine methodology. Electrolyte Balance [...] 4.3 10^3/mcL Workflow SS Lymphocytes/100 WBC (Bld) 5.2 % Low 20.0 - 40.0 % Workflow SS Magnesium [Mass/Vol] 1.6 mg/dL Normal 1.6 - 2 .4 mg/dL ADM SS MCH (RBC) [Entitic mass] 34.2 pg High 27.0 - 33.0 pg Workflow SS MCHC 35.7 G/dL Normal 32.0 - 36.0 G/dL Workflow SS MCV (RBC) [Entitic vol] 96.0 fL Normal 80.0 - 99.0 fL Workflow SS Monocytes (Bld) [#/Vol] 0.8 103/mcL Normal 0.1 - 1.4 10^3/mcL Workflow SS Monocytes/100 WBC (Bld) 5.5 % Normal 2.0 - 13.0 % AH Workflow SS Neutrophils (Bld) [#/Vol] 13.0 103/mcL High 2.3 - 8.1 10^3/mcL AH Workflow SS Neutrophils/100 WBC (Bld) 89.2 % [...] above: Interpretive Data: T esting performed on Cyanogen analyzer using enzymatic creatinine methodology. Electrolyte Balance [...] (S/P/Bld) [Vol rate/Area] ml/min/1.73sqm Invalid Interpretation Code [employer] [facility] S Comment on above: Interpretive Data: [...] (S/P/Bld) [Vol rate/Area] ml/min/1.73sqm Invalid Interpretation Code [employer] [facility] S Comment on above: Interpretive Data: [...] 177 mg/dL High 82 - 115 mg/dL AH ADM SS Hematocrit (Bld) [Volume fraction] 41.2 [...] fL AH Workflow SS Platelets (Bld) [#/Vol] 246 103/mcL Normal 150 - 450 10^3/mcL Workflow SS Potassium [Moles/Vol] 4.2 mmol/L Normal 3.5 - 5.0 mEq/L AH ADM SS PT Coag (PPP) [Time] 11.6 s Normal 9.0 - 1 4.4 seconds [facility] SS Comment on above: Interpretive Data: E ffective 09/12/07, Protime results may be affected by some antibiotics (i.e. Ciprofloxacin, Azithromycin, Bactrim) which may potentiate the action of oral anticoagulants, with further increases in Protime/INR. PT International Ratio 1.0 ratio Invalid Interpretation Code [facility] SS Comment on above: Interpretive Data: Hai magdaleno [employer] (CHEST, 1992, 102:[id number]) [...] AH ADM SS Urea nitrogen/Creatinine [Mass ratio] 24.3 [...] Location [facility] (01/30/24 8:58 AM) Normal AH Chemistry S pCO2 34.1 mm[Hg] Normal 32.0 - 46.0 mm Hg Main Rapid Comm SS pH (Bld) 7.437 [pH] Normal 7.380 - 7.460 Main Rapid Comm SS Potassium [Moles/Vol] 3.4 mmol/L Low 3.5 - 5.0 mEq/L Main Rapid Comm SS Sodium [Moles/Vol] 136 mmol/L Normal 136 - 145 mEq/L Main Rapid Comm SS MGon 01-30-2024 Magnesium [Mass/Vol] 1.6 mg/dL Normal 1.6-2.4 [facility] MAIN Comment on above: Performed By: #### G FR, CMP, CBC, LD, ADIFF, ANEU #### [address] [address] MGORon 01-30-2024 Magnesium [Mass/Vol] 1.8 mg/dL Normal 1.6-2.4 [facility] MAIN Comment on above: Performed By: #### A DIFF, GFR, CBC, BMP, ANEU #### [address] [address] Magnesium [Mass/Vol] 1.7 mg/dL Normal 1.6-2.4 [facility] MAIN Comment on above: Performed By: #### G FR, CMP, CBC, LD, ADIFF, ANEU #### [address] [address] MRI BRAIN W/ CONTRASTon MRI BRAIN W/ [...] 01/30/2024 7:26:17 AM Ordering Provider: WANG CORONADO [facility] MAIN NAORon 01-30-2024 Sodium [Moles/Vol] 136 mmol/L Normal 136-145 [facility] MAIN Comment on above: Performed By: #### G FR, CMP, CBC, LD, ADIFF, ANEU #### [place] [address] Sodium [Moles/Vol] 136 mmol/L Normal 136-145 [facility] MAIN Comment on above: Performed By: #### G FR, CMP, CBC, LD, ADIFF, ANEU #### [place] [phone] PHOSon 01-30-2024 Phosphate [Mass/Vol] 4.1 mg/dL Normal 2.4-5.1 [facility] MAIN Comment on above: Result Comment: No te - New Reference Range in effect 19 Performed By: #### A DIFF, GFR, CBC, BMP, ANEU #### [address] [address] PROon 01-30-2024 INR Coag (PPP) [Relative time] 1.0 {INR} Normal [facility] MAIN Comment on above: Result Comment: [employer] (CHEST, 1992, 102:312S-25S) recommended therapeutic range for oral anticoagulant therapy is: LOW RISK: Prophylaxis of venous thrombosis INR: 2.0-3.0 Treatment of pulmonary embolism 2.0-3.0 Prevention of systemic embolism 2.0-3.0 HIGH RISK: Mechanical prosthetic valves 2.5-3.5 Performed By: #### A DIFF, GFR, CBC, BMP, ANEU #### [address] [address] PT Coag (PPP) [Time] 11.6 s Normal 9.0-14.4 [facility] MAIN Comment on above: Result Comment: Effe ctive 09/12/07, Protime results may be affected by some antibiotics (i.e. Ciprofloxacin, Azithromycin, Bactrim) which may potentiate the action of oral anticoagulants, with further increases in Protime/INR. Performed By: #### A DIFF, GFR, CBC, BMP, ANEU #### [address] [address] .Auto Diffon 01-29-2024 Basophil, Absolute 0.0 10 3/mcL Normal 0.0-0.3 [facility] MAIN Comment on above: Performed By: #### G FR, CMP, CBC, LD, ADIFF, ANEU #### [address] [address] Basophils/100 WBC (Bld) 0.3 % Normal 0.0-2.5 [facility] MAIN Comment on above: Performed By: #### G FR, CMP, CBC, LD, ADIFF, ANEU #### [address] [address] Eosinophil, Absolute 0.0 10 3/mcL Normal 0.0-0.7 [facility] MAIN Comment on above: Performed By: #### G FR, CMP, CBC, LD, ADIFF, ANEU #### [address] [address] Eosinophils/100 WBC (Bld) 0.1 % Normal 0.0-6.0 [facility] MAIN Comment on above: Performed By: #### G FR, CMP, CBC, LD, ADIFF, ANEU #### [address] [address] Lymphocyte, Absolute 1.2 10 3/mcL Normal 0.9-4.3 [facility] MAIN Comment on above: Performed By: #### G FR, CMP, CBC, LD, ADIFF, ANEU #### [address] [address] Lymphocytes/100 WBC (Bld) 12.5 % Low 20.0-40.0 [facility] MAIN Comment on above: Performed By: #### G FR, CMP, CBC, LD, ADIFF, ANEU #### [address] [address] Monocyte, Absolute 0.6 10 3/mcL Normal 0.1-1.4 [facility] MAIN Comment on above: Performed By: #### G FR, CMP, CBC, LD, ADIFF, ANEU #### [address] [address] Monocytes/100 WBC (Bld) 6.6 % Normal 2.0-13.0 [facility] MAIN Comment on above: Performed By: #### G FR, CMP, CBC, LD, ADIFF, ANEU #### [address] [address] Neutrophils/100 WBC (Bld) 80.5 % High 50.0-75.0 [facility] Comment on above: Performed By: #### G FR, CMP, CBC, LD, ADIFF, ANEU #### [address] [address] .GFRon 01-29-2024 GFR Non- >60 Normal [facility] Comment on above: Result Comment: GFR [...] FR, CMP, CBC, LD, ADIFF, ANEU #### [address] [address] GFR >60 Normal [facility] Comment on above: Result Comment: GFR [...] FR, CMP, CBC, LD, ADIFF, ANEU #### [address] [address] .NEUABSon 01-29-2024 Neutrophil, Absolute 7.5 10 3/mcL Normal 2.3-8.1 [facility] Comment on above: Performed By: #### G FR, CMP, CBC, LD, ADIFF, ANEU #### [address] [address] BMPon 01-29-2024 BUN/Creatinine Ratio 23.0 ratio High 10.0-22.0 [facility] Comment on above: Performed By: #### G FR, CMP, CBC, LD, ADIFF, ANEU #### [address] [address] Calcium [Mass/Vol] 9.2 mg/dL Normal 8.7-10.4 [facility] Comment on above: Performed By: #### G FR, CMP, CBC, LD, ADIFF, ANEU #### [address] [address] Chloride [Moles/Vol] 106 mmol/L Normal 98-110 [facility] MAIN Comment on above: Performed By: #### G FR, CMP, CBC, LD, ADIFF, ANEU #### [address] [address] CO2 [Moles/Vol] 24 mmol/L Normal 22-32 [facility] MAIN Comment on above: Performed By: #### G FR, CMP, CBC, LD, ADIFF, ANEU #### [address] [address] Creatinine [Mass/Vol] 0.74 mg/dL Normal 0.50-1.20 [facility] MAIN Comment on above: Result Comment: Test ing performed on Cyanogen analyzer using enzymatic creatinine methodology. Performed By: #### G FR, CMP, CBC, LD, ADIFF, ANEU #### [address] [address] Electrolyte Balance 11.0 mEq/L Normal 4.0-15.0 [facility] MAIN Comment on above: Performed By: #### G FR, CMP, CBC, LD, ADIFF, ANEU #### [address] [address] Glucose [Mass/Vol] 183 mg/dL High 82-115 [facility] MAIN Comment on above: Performed By: #### G FR, CMP, CBC, LD, ADIFF, ANEU #### [address] [address] Potassium [Moles/Vol] 4.0 mmol/L Normal 3.5-5.0 [facility] MAIN Comment on above: Performed By: #### G FR, CMP, CBC, LD, ADIFF, ANEU #### [address] [address] Sodium [Moles/Vol] 141 mmol/L Normal 136-145 [facility] MAIN Comment on above: Performed By: #### G FR, CMP, CBC, LD, ADIFF, ANEU #### [address] [address] Urea nitrogen [Mass/Vol] 17.0 mg/dL Normal 8.0-22.0 [facility] MAIN Comment on above: Performed By: #### G FR, CMP, CBC, LD, ADIFF, ANEU #### [address] [address] CBCon 01-29-2024 Erythrocyte distribution width (RBC) [Ratio] 13.2 % Normal 11.5-15.5 [facility] MAIN Comment on above: Performed By: #### G FR, CMP, CBC, LD, ADIFF, ANEU #### [place] [address] Hematocrit (Bld) [Volume fraction] 41.4 % Normal 34.0-46.0 [facility] MAIN Comment on above: Performed By: #### G FR, CMP, CBC, LD, ADIFF, ANEU #### [place] [address] Hgb 14.6 G/dL Normal 12.0-16.0 [facility] MAIN Comment on above: Performed By: #### G FR, CMP, CBC, LD, ADIFF, ANEU #### [place] [phone] MCH (RBC) [Entitic mass] 33.3 pg High 27.0-33.0 [facility] MAIN Comment on above: Performed By: #### G FR, CMP, CBC, LD, ADIFF, ANEU #### [place] [address] MCHC 35.2 G/dL Normal 32.0-36.0 [facility] MAIN Comment on above: Performed By: #### G FR, CMP, CBC, LD, ADIFF, ANEU #### [place] [address] MCV (RBC) [Entitic vol] 94.7 fL Normal 80.0-99.0 [facility] MAIN Comment on above: Performed By: #### G FR, CMP, CBC, LD, ADIFF, ANEU #### [place] [address] Platelet 236 10 3/mcL Normal 150-450 [facility] MAIN Comment on above: Performed By: #### G FR, CMP, CBC, LD, ADIFF, ANEU #### [place] [address] Platelet mean volume (Bld) [Entitic vol] 7.4 fL Normal 6.6-10.5 [facility] MAIN Comment on above: Performed By: #### G FR, CMP, CBC, LD, ADIFF, ANEU #### [address] [address] RBC 4.37 10 6/mcL Normal 4.10-5.30 [facility] MAIN Comment on above: Performed By: #### G FR, CMP, CBC, LD, ADIFF, ANEU #### [address] [address] WBC 9.4 10 3/mcL Normal 4.5-10.8 [facility] MAIN Comment on above: Performed By: #### G FR, CMP, CBC, LD, ADIFF, ANEU #### [address] [address] .Auto Diffon 01-28-2024 Basophil, Absolute 0.0 10 3/mcL Normal 0.0-0.3 [facility] MAIN Comment on above: Performed By: #### A DIFF, GFR, CBC, BMP, ANEU #### [address] [address] Basophils/100 WBC (Bld) 0.1 % Normal 0.0-2.5 [facility] MAIN Comment on above: Performed By: #### A DIFF, GFR, CBC, BMP, ANEU #### [address] [address] Eosinophil, Absolute 0.0 10 3/mcL Normal 0.0-0.7 [facility] MAIN Comment on above: Performed By: #### A DIFF, GFR, CBC, BMP, ANEU #### [address] [address] Eosinophils/100 WBC (Bld) 0.2 % Normal 0.0-6.0 [facility] MAIN Comment on above: Performed By: #### A DIFF, GFR, CBC, BMP, ANEU #### [address] [address] Lymphocyte, Absolute 1.1 10 3/mcL Normal 0.9-4.3 [facility] MAIN Comment on above: Performed By: #### A DIFF, GFR, CBC, BMP, ANEU #### [address] [address] Lymphocytes/100 WBC (Bld) 11.9 % Low 20.0-40.0 [facility] MAIN Comment on above: Performed By: #### A DIFF, GFR, CBC, BMP, ANEU #### [address] [address] Monocyte, Absolute 0.5 10 3/mcL Normal 0.1-1.4 [facility] MAIN Comment on above: Performed By: #### A DIFF, GFR, CBC, BMP, ANEU #### [address] [address] Monocytes/100 WBC (Bld) 5.7 % Normal 2.0-13.0 [facility] MAIN Comment on above: Performed By: #### A DIFF, GFR, CBC, BMP, ANEU #### [address] [address] Neutrophils/100 WBC (Bld) 82.1 % High 50.0-75.0 [facility] MAIN Comment on above: Performed By: #### A DIFF, GFR, CBC, BMP, ANEU #### [address] [address] .GFRon 01-28-2024 GFR >60 [facility] MAIN Comment on above: Result Comment: [...] FR, CMP, CBC, LD, ADIFF, ANEU #### [address] [address] GFR Non- >60 [facility] MAIN Comment on above: Result Comment: GFR [...] FR, CMP, CBC, LD, ADIFF, ANEU #### [address] [address] .NEUABSon 01-28-2024 Neutrophil, Absolute 7.6 10 3/mcL Normal 2.3-8.1 [facility] MAIN Comment on above: Performed By: #### A DIFF, GFR, CBC, BMP, ANEU #### [address] [address] BMPon 01-28-2024 BUN/Creatinine Ratio 24.3 ratio High 10.0-22.0 [facility] MAIN Comment on above: Performed By: #### G FR, CMP, CBC, LD, ADIFF, ANEU #### [address] [address] Calcium [Mass/Vol] 9.2 mg/dL Normal 8.7-10.4 [facility] MAIN Comment on above: Performed By: #### G FR, CMP, CBC, LD, ADIFF, ANEU #### [address] [address] Chloride [Moles/Vol] 106 mmol/L Normal 98-110 [facility] MAIN Comment on above: Performed By: #### G FR, CMP, CBC, LD, ADIFF, ANEU #### [address] [address] CO2 [Moles/Vol] 25 mmol/L Normal 22-32 [facility] MAIN Comment on above: Performed By: #### G FR, CMP, CBC, LD, ADIFF, ANEU #### [address] [address] Creatinine [Mass/Vol] 0.74 mg/dL Normal 0.50-1.20 [facility] MAIN Comment on above: Result Comment: Test ing performed on Cyanogen analyzer using enzymatic creatinine methodology. Performed By: #### G FR, CMP, CBC, LD, ADIFF, ANEU #### [place] [phone] Electrolyte Balance 9.0 mEq/L Normal 4.0-15.0 [facility] MAIN Comment on above: Performed By: #### G FR, CMP, CBC, LD, ADIFF, ANEU #### [place] [address] Glucose [Mass/Vol] 231 mg/dL High 82-115 [facility] MAIN Comment on above: Performed By: #### G FR, CMP, CBC, LD, ADIFF, ANEU #### [place] [address] Potassium [Moles/Vol] 4.0 mmol/L Normal 3.5-5.0 [facility] MAIN Comment on above: Performed By: #### G FR, CMP, CBC, LD, ADIFF, ANEU #### [place] [address] Sodium [Moles/Vol] 140 mmol/L Normal 136-145 [facility] MAIN Comment on above: Performed By: #### G FR, CMP, CBC, LD, ADIFF, ANEU #### [place] [phone] Urea nitrogen [Mass/Vol] 18.0 mg/dL Normal 8.0-22.0 [facility] MAIN Comment on above: Performed By: #### G FR, CMP, CBC, LD, ADIFF, ANEU #### [address] [address] CBCon 01-28-2024 Erythrocyte distribution width (RBC) [Ratio] 13.2 % Normal 11.5-15.5 [facility] MAIN Comment on above: Performed By: #### A DIFF, GFR, CBC, BMP, ANEU #### [place] [phone] Hematocrit (Bld) [Volume fraction] 40.0 % Normal 34.0-46.0 [facility] MAIN Comment on above: Performed By: #### A DIFF, GFR, CBC, BMP, ANEU #### [address] [address] Hgb 14.1 G/dL Normal 12.0-16.0 [facility] MAIN Comment on above: Performed By: #### A DIFF, GFR, CBC, BMP, ANEU #### [address] [address] MCH (RBC) [Entitic mass] 33.6 pg High 27.0-33.0 [facility] MAIN Comment on above: Performed By: #### A DIFF, GFR, CBC, BMP, ANEU #### [place] [address] MCHC 35.2 G/dL Normal 32.0-36.0 [facility] MAIN Comment on above: Performed By: #### A DIFF, GFR, CBC, BMP, ANEU #### [place] [address] MCV (RBC) [Entitic vol] 95.7 fL Normal 80.0-99.0 [facility] MAIN Comment on above: Performed By: #### A DIFF, GFR, CBC, BMP, ANEU #### [place] [address] Platelet 226 10 3/mcL Normal 150-450 [facility] MAIN Comment on above: Performed By: #### A DIFF, GFR, CBC, BMP, ANEU #### [place] [address] Platelet mean volume (Bld) [Entitic vol] 7.9 fL Normal 6.6-10.5 [facility] MAIN Comment on above: Performed By: #### A DIFF, GFR, CBC, BMP, ANEU #### [place] [phone] RBC 4.18 10 6/mcL Normal 4.10-5.30 [facility] MAIN Comment on above: Performed By: #### A DIFF, GFR, CBC, BMP, ANEU #### [place] [address] WBC 9.2 10 3/mcL Normal 4.5-10.8 [facility] MAIN Comment on above: Performed By: #### A DIFF, GFR, CBC, BMP, ANEU #### [place] [address] CT ANGIOGRAPHY HEAD W/ CONTR Bailey 01-28-2024 [...] Date: 01/28/2024 5:17:38 PM Ordering Provider: ROSEMARIE Danielle [facility] MAIN .Auto Diffon 01-27-2024 Basophil, Absolute 0.0 10 3/mcL Normal 0.0-0.3 [facility] MAIN Comment on above: Performed By: #### G FR, CMP, CBC, LD, ADIFF, ANEU #### [address] [address] Basophils/100 WBC (Bld) 0.2 % Normal 0.0-2.5 [facility] MAIN Comment on above: Performed By: #### G FR, CMP, CBC, LD, ADIFF, ANEU #### [address] [address] Eosinophil, Absolute 0.0 10 3/mcL Normal 0.0-0.7 [facility] MAIN Comment on above: Performed By: #### G FR, CMP, CBC, LD, ADIFF, ANEU #### [address] [address] Eosinophils/100 WBC (Bld) 0.1 % Normal 0.0-6.0 [facility] MAIN Comment on above: Performed By: #### G FR, CMP, CBC, LD, ADIFF, ANEU #### [address] [address] Lymphocyte, Absolute 1.2 10 3/mcL Normal 0.9-4.3 [facility] MAIN Comment on above: Performed By: #### G FR, CMP, CBC, LD, ADIFF, ANEU #### [address] [address] Lymphocytes/100 WBC (Bld) 10.2 % Low 20.0-40.0 [facility] MAIN Comment on above: Performed By: #### G FR, CMP, CBC, LD, ADIFF, ANEU #### [address] [address] Monocyte, Absolute 0.5 10 3/mcL Normal 0.1-1.4 [facility] MAIN Comment on above: Performed By: #### G FR, CMP, CBC, LD, ADIFF, ANEU #### [address] [address] Monocytes/100 WBC (Bld) 4.4 % Normal 2.0-13.0 [facility] MAIN Comment on above: Performed By: #### G FR, CMP, CBC, LD, ADIFF, ANEU #### [address] [address] Neutrophils/100 WBC (Bld) 85.1 % High 50.0-75.0 [facility] MAIN Comment on above: Performed By: #### G FR, CMP, CBC, LD, ADIFF, ANEU #### [address] [address] .GFRon 01-27-2024 GFR Non- >60 [facility] MAIN Comment on above: Result Comment: GFR [...] FR, CMP, CBC, LD, ADIFF, ANEU #### [address] [address] GFR >60 Normal [facility] MAIN Comment on above: Result Comment: GFR [...] FR, CMP, CBC, LD, ADIFF, ANEU #### [address] [address] .NEUABSon 01-27-2024 Neutrophil, Absolute 10.0 10 3/mcL High 2.3-8.1 [facility] MAIN Comment on above: Performed By: #### G FR, CMP, CBC, LD, ADIFF, ANEU #### [address] [address] [facility] 01-27-2024 Glucose [Mass/Vol] 151 mg/dL Normal [facility] MAIN Comment on above: Result Comment: Kathryn mated Average Glucose calculated by equation ((28.7xA1C)-46.7) Estimated average glucose (eAG) is a calculated value from Hemoglobin A1C and is exhibit display representative of the average blood glucose level in the last 2-3 month period. Normal range: less than 114 mg/dL Performed By: #### G FR, CMP, CBC, LD, ADIFF, ANEU #### [address] [address] HbA1c (Bld) [Mass fraction] 6.9 % High 4.0-6.0 [facility] MAIN Comment on above: Performed By: #### G FR, CMP, CBC, LD, ADIFF, ANEU #### [address] [address] BMP 01-27-2024 BUN/Creatinine Ratio 20.9 ratio Normal 10.0-22.0 [facility] MAIN Comment on above: Performed By: #### G FR, CMP, CBC, LD, ADIFF, ANEU #### [address] [address] Calcium [Mass/Vol] 9.4 mg/dL Normal 8.7-10.4 [facility] MAIN Comment on above: Performed By: #### G FR, CMP, CBC, LD, ADIFF, ANEU #### [address] [address] Chloride [Moles/Vol] 103 mmol/L Normal 98-110 [facility] MAIN Comment on above: Performed By: #### G FR, CMP, CBC, LD, ADIFF, ANEU #### [address] [address] CO2 [Moles/Vol] 27 mmol/L Normal 22-32 [facility] MAIN Comment on above: Performed By: #### G FR, CMP, CBC, LD, ADIFF, ANEU #### [address] [address] Creatinine [Mass/Vol] 0.91 mg/dL Normal 0.50-1.20 [facility] MAIN Comment on above: Result Comment: Test ing performed on Cyanogen analyzer using enzymatic creatinine methodology. Performed By: #### G FR, CMP, CBC, LD, ADIFF, ANEU #### [place] [address] Electrolyte Balance 10.0 mEq/L Normal 4.0-15.0 [facility] MAIN Comment on above: Performed By: #### G FR, CMP, CBC, LD, ADIFF, ANEU #### [place] [address] Glucose [Mass/Vol] 231 mg/dL High 82-115 [facility] MAIN Comment on above: Performed By: #### G FR, CMP, CBC, LD, ADIFF, ANEU #### [place] [address] Potassium [Moles/Vol] 4.1 mmol/L Normal 3.5-5.0 [facility] MAIN Comment on above: Performed By: #### G FR, CMP, CBC, LD, ADIFF, ANEU #### [place] [phone] Sodium [Moles/Vol] 140 mmol/L Normal 136-145 [facility] MAIN Comment on above: Performed By: #### G FR, CMP, CBC, LD, ADIFF, ANEU #### [place] [phone] Urea nitrogen [Mass/Vol] 19.0 mg/dL Normal 8.0-22.0 [facility] MAIN Comment on above: Performed By: #### G FR, CMP, CBC, LD, ADIFF, ANEU #### [address] [address] CBCon 01-27-2024 Erythrocyte distribution width (RBC) [Ratio] 13.1 % Normal 11.5-15.5 [facility] MAIN Comment on above: Performed By: #### G FR, CMP, CBC, LD, ADIFF, ANEU #### [place] [address] Hematocrit (Bld) [Volume fraction] 39.7 % Normal 34.0-46.0 [facility] MAIN Comment on above: Performed By: #### G FR, CMP, CBC, LD, ADIFF, ANEU #### [place] [address] Hgb 14.0 G/dL Normal 12.0-16.0 [facility] MAIN Comment on above: Performed By: #### G FR, CMP, CBC, LD, ADIFF, ANEU #### [place] [address] MCH (RBC) [Entitic mass] 33.4 pg High 27.0-33.0 [facility] MAIN Comment on above: Performed By: #### G FR, CMP, CBC, LD, ADIFF, ANEU #### [place] [address] MCHC 35.2 G/dL Normal 32.0-36.0 [facility] MAIN Comment on above: Performed By: #### G FR, CMP, CBC, LD, ADIFF, ANEU #### [place] [address] MCV (RBC) [Entitic vol] 94.8 fL Normal 80.0-99.0 [facility] MAIN Comment on above: Performed By: #### G FR, CMP, CBC, LD, ADIFF, ANEU #### [place] [address] Platelet 240 10 3/mcL Normal 150-450 [facility] MAIN Comment on above: Performed By: #### G FR, CMP, CBC, LD, ADIFF, ANEU #### [place] [address] Platelet mean volume (Bld) [Entitic vol] 7.5 fL Normal 6.6-10.5 [facility] MAIN Comment on above: Performed By: #### G FR, CMP, CBC, LD, ADIFF, ANEU #### [place] [address] RBC 4.19 10 6/mcL Normal 4.10-5.30 [facility] MAIN Comment on above: Performed By: #### G FR, CMP, CBC, LD, ADIFF, ANEU #### [facility] [address] [place] [address] WBC 11.7 10 3/mcL High 4.5-10.8 [facility] MAIN Comment on above: Performed By: #### G FR, CMP, CBC, LD, ADIFF, ANEU #### [facility] [address] [place] [address] LABORATORYOrdered By: SYSTEM SYSTEM on 01-27-2024 Glucose [Mass/Vol] 151 mg/dL Invalid Interpretation Code Auto Chem SS Comment on above: Interpretive Data: E stimated average glucose (eAG) is a calculated value from Hemoglobin A1C and is exhibit display representative of the average blood glucose level [...] 01/27/2024 8:47:58 AM Ordering Provider: MADIHA ZHANG [facility] MRI BRAIN W/ CONTRASTon 12-30 MRI BRAIN [...] Date: 01/27/2024 8:49:03 AM Ordering Provider: MADIHA ZHANG [facility] .Auto Diffon 01-26-2024 Basophil, Absolute 0.0 10 3/mcL Normal 0.0-0.3 [facility] MAIN Comment on above: Performed By: #### G FR, CMP, CBC, LD, ADIFF, ANEU #### [address] [address] Basophils/100 WBC (Bld) 0.2 % Normal 0.0-2.5 [facility] MAIN Comment on above: Performed By: #### G FR, CMP, CBC, LD, ADIFF, ANEU #### [address] [address] Eosinophil, Absolute 0.0 10 3/mcL Normal 0.0-0.7 [facility] MAIN Comment on above: Performed By: #### G FR, CMP, CBC, LD, ADIFF, ANEU #### [address] [address] Eosinophils/100 WBC (Bld) 0.0 % Normal 0.0-6.0 [facility] MAIN Comment on above: Performed By: #### G FR, CMP, CBC, LD, ADIFF, ANEU #### [place] [id number] [place] [address] Lymphocyte, Absolute 0.8 10 3/mcL Low 0.9-4.3 [facility] MAIN Comment on above: Performed By: #### G FR, CMP, CBC, LD, ADIFF, ANEU #### [address] [address] Lymphocytes/100 WBC (Bld) 9.1 % Low 20.0-40.0 [facility] MAIN Comment on above: Performed By: #### G FR, CMP, CBC, LD, ADIFF, ANEU #### [address] [address] Monocyte, Absolute 0.4 10 3/mcL Normal 0.1-1.4 [facility] MAIN Comment on above: Performed By: #### G FR, CMP, CBC, LD, ADIFF, ANEU #### [address] [address] Monocytes/100 WBC (Bld) 4.7 % Normal 2.0-13.0 [facility] MAIN Comment on above: Performed By: #### G FR, CMP, CBC, LD, ADIFF, ANEU #### [address] [address] Neutrophils/100 WBC (Bld) 86.0 % High 50.0-75.0 [facility] MAIN Comment on above: Performed By: #### G FR, CMP, CBC, LD, ADIFF, ANEU #### [address] [address] .GFRon 01-26-2024 GFR >60 Normal [facility] MAIN Comment on above: Result Comment: GFR [...] FR, CMP, CBC, LD, ADIFF, ANEU #### [address] [address] GFR Non- >60 Normal [facility] MAIN Comment on above: Result Comment: GFR [...] FR, CMP, CBC, LD, ADIFF, ANEU #### [address] [address] .NEUABSon 01-26-2024 Neutrophil, Absolute 7.9 10 3/mcL Normal 2.3-8.1 [facility] MAIN Comment on above: Performed By: #### G FR, CMP, CBC, LD, ADIFF, ANEU #### [address] [address] APTTon 01-26-2024 aPTT Coag (Bld) [Time] 27.5 s Normal 25.0-35.0 [facility] MAIN Comment on above: Result Comment: For Heparin anticoagulation therapy, the recommended therapeutic range is: 54-77 seconds (APTT Correlation with Anti-Xa therapeutic range of 0.3-0.7 units/ml). PLEASE REFERENCE THE PHARMACY PROTOCOL FOR DOSING. Performed By: #### G FR, CMP, CBC, LD, ADIFF, ANEU #### [address] [address] BMPon 01-26-2024 BUN/Creatinine Ratio 15.6 ratio Normal 10.0-22.0 [facility] MAIN Comment on above: Performed By: #### G FR, CMP, CBC, LD, ADIFF, ANEU #### [address] [address] Calcium [Mass/Vol] 9.2 mg/dL Normal 8.7-10.4 [facility] MAIN Comment on above: Performed By: #### G FR, CMP, CBC, LD, ADIFF, ANEU #### [address] [address] Chloride [Moles/Vol] 107 mmol/L Normal 98-110 [facility] MAIN Comment on above: Performed By: #### G FR, CMP, CBC, LD, ADIFF, ANEU #### [address] [address] CO2 [Moles/Vol] 26 mmol/L Normal 22-32 [facility] MAIN Comment on above: Performed By: #### G FR, CMP, CBC, LD, ADIFF, ANEU #### [address] [address] Creatinine [Mass/Vol] 0.77 mg/dL Normal 0.50-1.20 [facility] MAIN Comment on above: Result Comment: Test ing performed on Cyanogen analyzer using enzymatic creatinine methodology. Performed By: #### G FR, CMP, CBC, LD, ADIFF, ANEU #### [address] [address] Electrolyte Balance 8.0 mEq/L Normal 4.0-15.0 [facility] MAIN Comment on above: Performed By: #### G FR, CMP, CBC, LD, ADIFF, ANEU #### [address] [address] Glucose [Mass/Vol] 276 mg/dL High 82-115 [facility] MAIN Comment on above: Performed By: #### G FR, CMP, CBC, LD, ADIFF, ANEU #### [address] [address] Potassium [Moles/Vol] 4.0 mmol/L Normal 3.5-5.0 [facility] MAIN Comment on above: Performed By: #### G FR, CMP, CBC, LD, ADIFF, ANEU #### [place] [address] Sodium [Moles/Vol] 141 mmol/L Normal 136-145 [facility] MAIN Comment on above: Performed By: #### G FR, CMP, CBC, LD, ADIFF, ANEU #### [place] [address] Urea nitrogen [Mass/Vol] 12.0 mg/dL Normal 8.0-22.0 [facility] MAIN Comment on above: Performed By: #### G FR, CMP, CBC, LD, ADIFF, ANEU #### [place] [address] CBCon 01-26-2024 Erythrocyte distribution width (RBC) [Ratio] 12.9 % Normal 11.5-15.5 [facility] MAIN Comment on above: Performed By: #### G FR, CMP, CBC, LD, ADIFF, ANEU #### [place] [address] Hematocrit (Bld) [Volume fraction] 40.8 % Normal 34.0-46.0 [facility] MAIN Comment on above: Performed By: #### G FR, CMP, CBC, LD, ADIFF, ANEU #### [place] [address] Hgb 14.1 G/dL Normal 12.0-16.0 [facility] MAIN Comment on above: Performed By: #### G FR, CMP, CBC, LD, ADIFF, ANEU #### [place] [address] MCH (RBC) [Entitic mass] 33.4 pg High 27.0-33.0 [facility] MAIN Comment on above: Performed By: #### G FR, CMP, CBC, LD, ADIFF, ANEU #### [place] [address] MCHC 34.6 G/dL Normal 32.0-36.0 [facility] MAIN Comment on above: Performed By: #### G FR, CMP, CBC, LD, ADIFF, ANEU #### [place] [address] MCV (RBC) [Entitic vol] 96.4 fL Normal 80.0-99.0 [facility] MAIN Comment on above: Performed By: #### G FR, CMP, CBC, LD, ADIFF, ANEU #### [place] [address] Platelet 223 10 3/mcL Normal 150-450 [facility] MAIN Comment on above: Performed By: #### G FR, CMP, CBC, LD, ADIFF, ANEU #### [place] [address] Platelet mean volume (Bld) [Entitic vol] 7.4 fL Normal 6.6-10.5 [facility] MAIN Comment on above: Performed By: #### G FR, CMP, CBC, LD, ADIFF, ANEU #### [place] [address] RBC 4.23 10 6/mcL Normal 4.10-5.30 [facility] Comment on above: Performed By: #### G FR, CMP, CBC, LD, ADIFF, ANEU #### [place] [address] WBC 9.1 10 3/mcL Normal 4.5-10.8 [facility] Comment on above: Performed By: #### G FR, CMP, CBC, LD, ADIFF, ANEU #### [place] [address] FIBon 01-26-2024 Fibrinogen 395 mg/dL Normal 250-560 [facility] Comment on above: Performed By: #### G FR, CMP, CBC, LD, ADIFF, ANEU #### [place] [address] LABORATORYOrdered By: Ara Bernal on 01-26-2024 Glucose [Mass/Vol] 253 mg/dL [facility] Work Phone: LABORATORYOrdered By: Kevin Mendoza on 01-26-2024 Appearance (U) Clear (01/26/24 7:46 AM) Normal Clear AH Auto Urine SS Bilirubin Ql (U) Negative [...] Est Negative (01/26/24 7:46 AM) Normal Negative AH Auto Urine SS UA Nitrite Negative (01/26/24 7:46 AM) Normal Negative AH Auto Urine SS UA pH 7.0 (01/26/24 7:46 AM) Normal 5.0 - 8.0 AH Auto Urine SS UA Protein Negative Normal Negative AH Auto Urine SS UA Spec Grav 1.020 (01/26/24 7:46 AM) Normal 1.006-1.029 AH Auto Urine SS UA Specimen Type Not Given (01/26/24 7:46 AM) Normal AH Auto Urine SS UA Urobilinogen 1.0 E.U./dL Normal 0.2-1.0 AH Auto Urine SS LABORATORYOrdered By: SYSTEM SYSTEM on 01-26-2024 aPTT Coag (Bld) [Time] 27.5 s Normal 25.0 - 35.0 seconds [facility] Comment on above: Interpretive Data: F or Heparin anticoagulation therapy, the recommended therapeutic range is: 54-77 seconds (APTT Correlation with Anti-Xa therapeutic range of 0.3-0.7 units/ml). PLEASE REFERENCE THE PHARMACY PROTOCOL FOR DOSING. Fibrinogen 395 mg/dL Normal 250 - 560 mg/dL [facility] PT Coag (PPP) [Time] 11.7 s Normal 9.0 - 1 4.4 seconds [facility] Comment on above: Interpretive Data: E ffective 09/12/07, Protime results may be affected by some antibiotics (i.e. Ciprofloxacin, Azithromycin, Bactrim) which may potentiate the action of oral anticoagulants, with further increases in Protime/INR. PT International Ratio 1.0 ratio Invalid Interpretation Code [facility] SS Comment on above: Interpretive Data: Hai magdaleno [employer] (CHEST, 1992, 102:312S-25S) recommended therapeutic range for oral anticoagulant therapy is: LOW RISK: Prophylaxis of venous thrombosis INR: 2.0-3.0 Treatment of pulmonary embolism 2.0-3.0 Prevention of systemic embolism 2.0-3.0 HIGH RISK: Mechanical prosthetic valves 2.5-3.5 PROon 01-26-2024 INR Coag (PPP) [Relative time] 1.0 {INR} Normal [facility] Comment on above: Result Comment: [employer] (CHEST, 1992, 102:312S-25S) recommended therapeutic range for oral anticoagulant therapy is: LOW RISK: Prophylaxis of venous thrombosis INR: 2.0-3.0 Treatment of pulmonary embolism 2.0-3.0 Prevention of systemic embolism 2.0-3.0 HIGH RISK: Mechanical prosthetic valves 2.5-3.5 Performed By: #### G FR, CMP, CBC, LD, ADIFF, ANEU #### [address] [address] PT Coag (PPP) [Time] 11.7 s Normal 9.0-14.4 [facility] Comment on above: Result Comment: Effe ctive 09/12/07, Protime results may be affected by some antibiotics (i.e. Ciprofloxacin, Azithromycin, Bactrim) which may potentiate the action of oral anticoagulants, with further increases in Protime/INR. Performed By: #### G FR, CMP, CBC, LD, ADIFF, ANEU #### [address] [address] UAon 01-26-2024 Color (U) Yellow Normal [facility] Comment on above: Performed By: #### G FR, CMP, CBC, LD, ADIFF, ANEU #### [address] [address] Glucose (U) [Mass/Vol] mg/dL Abnormal Negative [facility] Comment on above: Performed By: #### G FR, CMP, CBC, LD, ADIFF, ANEU #### [address] [address] Ketones Ql (U) Negative Normal Neg-Trace [facility] Comment on above: Performed By: #### G FR, CMP, CBC, LD, ADIFF, ANEU #### [place] [id number] UA Appear Clear Normal Clear [facility] Comment on above: Performed By: #### G FR, CMP, CBC, LD, ADIFF, ANEU #### [address] [address] UA Blood Negative Normal Neg-Trace [facility] Comment on above: Performed By: #### G FR, CMP, CBC, LD, ADIFF, ANEU #### [place] [address] UA Leuk Est Negative Normal Negative [facility] Comment on above: Performed By: #### G FR, CMP, CBC, LD, ADIFF, ANEU #### [place] [address] UA Nitrite Negative Normal Negative [facility] Comment on above: Performed By: #### G FR, CMP, CBC, LD, ADIFF, ANEU #### [place] [address] UA pH 7.0 Normal 5.0 - 8.0 [facility] Comment on above: Performed By: #### G FR, CMP, CBC, LD, ADIFF, ANEU #### [place] [address] UA Protein Negative Normal Negative [facility] Comment on above: Performed By: #### G FR, CMP, CBC, LD, ADIFF, ANEU #### [place] [address] UA Spec Grav 1.020 Normal 1.006-1.029 [facility] Comment on above: Performed By: #### G FR, CMP, CBC, LD, ADIFF, ANEU #### [place] [address] UA Specimen Type Not Given Normal [facility] Comment on above: Performed By: #### G FR, CMP, CBC, LD, ADIFF, ANEU #### [place] [address] UA Urobilinogen 1.0 E.U./dL Normal 0.2-1.0 [facility] Comment on above: Performed By: #### G FR, CMP, CBC, LD, ADIFF, ANEU #### [facility] [address] [place] [address] Urobilinogen (U) [Mass/Vol] Negative Normal Neg-Trace [facility] Comment on above: Performed By: #### G FR, CMP, CBC, LD, ADIFF, ANEU #### [facility] [address] [place] [address] Absolute neutrophil countOrd ered By: Charles Rico on 01-25-2024 Neutrophils (Bld) [#/Vol] 4.9 10*3/uL 2.0-7.7 [facility] Basic Metabolic Profile (BMP )on 01-25-2024 BUN/CRE 8.4 RATIO Low 10-20 [facility] Comment on above: Performed By: #### L 501.3620, L500.2500, L100.0100, L3600.5100, L501.4020 #### [facility] [address] [place], [address] CA,Total 8.8 mg/dL Normal 8.5-10.1 [facility] Comment on above: Performed By: #### L 501.3620, L500.2500, L100.0100, L3600.5100, L501.4020 #### [facility] [address] [place], [address] Chloride [Moles/Vol] 103 mmol/L Normal 98-107 [facility] Comment on above: Performed By: #### L 501.3620, L500.2500, L100.0100, L3600.5100, L501.4020 #### [facility] [address] [place], [address] CO2 [Moles/Vol] 28.0 mmol/L Normal 21.0-32.0 [facility] Comment on above: Performed By: #### L 501.3620, L500.2500, L100.0100, L3600.5100, L501.4020 #### [facility] [address] [place], [address] Creatinine [Mass/Vol] 0.95 mg/dL Normal 0.55-1.02 [facility] Comment on above: Result Comment: The validity of the calculated GFR GFRAA in patients over 70 years has not been determined. Clinical correlation is essential. Performed By: #### L 501.3620, L500.2500, L100.0100, L3600.5100, L501.4020 #### [facility] [address] [place], [address] ECRCL 58.13 ml/min Normal [facility] Comment on above: Performed By: #### L 501.3620, L500.2500, L100.0100, L3600.5100, L501.4020 #### [facility] [address] [place], [address] EST GFR - AA 74 mL/min Normal >60 [facility] Comment on above: Result Comment: Afri can [employer] GFR Calc Performed By: #### L 501.3620, L500.2500, L100.0100, L3600.5100, L501.4020 #### [facility] [address] [place], [address] GAP 7 Normal 5-15 [facility] Comment on above: Performed By: #### L 501.3620, L500.2500, L100.0100, L3600.5100, L501.4020 #### [facility] [address] [place], [address] GFR/1.73 sq M.predicted among non-blacks MDRD (S/P/Bld) [Vol rate/Area] 61 mL/min/{1.73_m2} Normal >60 [facility] Comment on above: Result Comment: Non- GFR Calc Performed By: #### L 501.3620, L500.2500, L100.0100, L3600.5100, L501.4020 #### [facility] [address] [place], [address] Glucose [Mass/Vol] 198 mg/dL High 74-106 [facility] Comment on above: Result Comment: Fast ing Glucose result greater than or equal to 126 mg/dL suggests DIABETES MELLITUS per A.D.A. criteria. Performed By: #### L 501.3620, L500.2500, L100.0100, L3600.5100, L501.4020 #### [facility] [address] [place], [address] Potassium [Moles/Vol] 3.6 mmol/L Normal 3.5-5.1 [facility] Comment on above: Performed By: #### L 501.3620, L500.2500, L100.0100, L3600.5100, L501.4020 #### [facility] [address] [place], [address] Sodium [Moles/Vol] 137 mmol/L Normal 136-145 [facility] Comment on above: Performed By: #### L 501.3620, L500.2500, L100.0100, L3600.5100, L501.4020 #### [facility] [address] [place], [address] Urea nitrogen [Mass/Vol] 8 mg/dL Normal 7-18 [facility] Comment on above: Performed By: #### L 501.3620, L500.2500, L100.0100, L3600.5100, L501.4020 #### [facility] [address] [place], [address] Basophil percentageOrdered B y: Charles Rico on 01-25-2024 Basophils/100 WBC (Bld) 1.0 % 0-1 [facility] Blood urea nitrogen (BUN)/cr eatinine ratioOrdered By: Charles Rico on 01-25-2024 Urea nitrogen/Creatinine [Mass ratio] 8.4 mg/mg Low 10-20 [facility] Brain/Head without Contrasto n 01-25-2024 Brain/Head without Contrast [facility] Imaging Services [address] [place] [address] Brain/Head without Contrast MR#: [id number] Acct: [id number] Name: TERENCE VALDIVIA Rep #: [id number] : 1950 F 73 From: Kimberli Haile PCP: Dr. Will Lim MD Status: REG ER Study: Brain/Head without Contrast Date of Exam: 12/30 09/20 Exam# [id number] Ordering Dr: Charles Rico MD ADDENDUM by Dr. Kimberli Rosales MD on 01/25/24 at 0443 [id number] INDICATION: trauma EXAMINATION: CT BRAIN - CT [...] Signed: Kimberli Rosales MD at 4:43 EST Reading Location ID and State: [address] [place] [address] Tel , Service support , 01/25/24 0452 Date cc: Dr. Charles Rico MD; Dr. Will Lim MD * Signed We are attempting to reach an attending provider to discuss findings. An addendum with communication details will be sent when the communication is complete. [id number] INDICATION: trauma EXAMINATION: CT BRAIN - CT [...] Charles Rico MD; Dr. Will Lim MD [employer] Teacher: Signed Normal [facility] CBC W/Diff, Automatedon - Absolute Lymph 0.99 X10 3/uL Normal 0.83-4.51 [facility] Comment on above: Performed By: #### L 501.3620, L500.2500, L100.0100, L3600.5100, L501.4020 #### [facility] [address] [place], [address] Absolute Neut 4.9 X10 3/uL Normal 2.0-7.7 [facility] Comment on above: Performed By: #### L 501.3620, L500.2500, L100.0100, L3600.5100, L501.4020 #### [facility] [address] [place], [address] Basophils/100 WBC (Bld) 1.0 % Normal 0-1 [facility] Comment on above: Performed By: #### L 501.3620, L500.2500, L100.0100, L3600.5100, L501.4020 #### [facility] [address] [place], [address] Eosinophils/100 WBC (Bld) 3.4 % Normal 0-5 [facility] Comment on above: Performed By: #### L 501.3620, L500.2500, L100.0100, L3600.5100, L501.4020 #### [facility] [address] [place], [address] Erythrocyte distribution width (RBC) [Ratio] 12.2 % Normal 11.6-14.6 [facility] Comment on above: Performed By: #### L 501.3620, L500.2500, L100.0100, L3600.5100, L501.4020 #### [facility] [address] [place], [address] Hematocrit (Bld) [Volume fraction] 42.5 % Normal 37-47 [facility] Comment on above: Performed By: #### L 501.3620, L500.2500, L100.0100, L3600.5100, L501.4020 #### [facility] [address] [place], [address] Hemoglobin (Bld) [Mass/Vol] 15.0 g/dL Normal 12.0-15.0 [facility] Comment on above: Performed By: #### L 501.3620, L500.2500, L100.0100, L3600.5100, L501.4020 #### [facility] [address] [place], [address] IG% 0.300 Normal 0.0-0.9 [facility] Comment on above: Result Comment: IG% - Immature Granulocytes (promyelocytes, myelocytes and metamyelocytes) > 1% indicates that a LEFT SHIFT is Present. Performed By: #### L 501.3620, L500.2500, L100.0100, L3600.5100, L501.4020 #### [facility] [address] [place], [address] Lymphocytes/100 WBC (Bld) 14.1 % Low 19-41 [facility] Comment on above: Performed By: #### L 501.3620, L500.2500, L100.0100, L3600.5100, L501.4020 #### [facility] [address] [place], [address] MCH (RBC) [Entitic mass] 33.0 pg High 27.0-32.0 [facility] Comment on above: Performed By: #### L 501.3620, L500.2500, L100.0100, L3600.5100, L501.4020 #### [facility] [address] [place], [address] MCHC (RBC) [Mass/Vol] 35.3 g/dL Normal 32-36 [facility] Comment on above: Performed By: #### L 501.3620, L500.2500, L100.0100, L3600.5100, L501.4020 #### [facility] [address] [place], [address] MCV (RBC) [Entitic vol] 93.4 fL Normal 81-99 [facility] Comment on above: Performed By: #### L 501.3620, L500.2500, L100.0100, L3600.5100, L501.4020 #### [facility] [address] [place], [address] Monocytes/100 WBC (Bld) 11.8 % High 0-10 [facility] Comment on above: Performed By: #### L 501.3620, L500.2500, L100.0100, L3600.5100, L501.4020 #### [facility] [address] [place], [address] Neutrophils/100 WBC (Bld) 69.4 % Normal 47-70 [facility] Comment on above: Performed By: #### L 501.3620, L500.2500, L100.0100, L3600.5100, L501.4020 #### [facility] [address] [place], [address] Nucleated RBC (Bld) [#/Vol] 0 10*3/uL Normal 0-5 [facility] Comment on above: Performed By: #### L 501.3620, L500.2500, L100.0100, L3600.5100, L501.4020 #### [facility] [address] [place], [address] Platelet mean volume (Bld) [Entitic vol] 8.9 fL Normal 6.2-12.0 [facility] Comment on above: Performed By: #### L 501.3620, L500.2500, L100.0100, L3600.5100, L501.4020 #### [facility] [address] [place], [address] Platelets (Bld) [#/Vol] 192 10*3/uL Normal 150-450 [facility] Comment on above: Performed By: #### L 501.3620, L500.2500, L100.0100, L3600.5100, L501.4020 #### [facility] [address] [place], [address] RBC (Bld) [#/Vol] 4.55 10*6/uL Normal 4.2-5.4 [facility] Comment on above: Performed By: #### L 501.3620, L500.2500, L100.0100, L3600.5100, L501.4020 #### [facility] [address] [place], [address] RDW SD 41.9 fl Normal 35.1-43.9 [facility] Comment on above: Performed By: #### L 501.3620, L500.2500, L100.0100, L3600.5100, L501.4020 #### [facility] [address] [place], [address] WBC (Bld) [#/Vol] 7.0 10*3/uL Normal 4.4-11.0 [facility] Comment on above: Performed By: #### L 501.3620, L500.2500, L100.0100, L3600.5100, L501.4020 #### [facility] [address] [place], [address] Carbon dioxide measurementOr dered By: Charles Rico on 01-25-2024 CO2 [Moles/Vol] 28.0 mmol/L 21.0-32.0 [facility] Chloride measurementOrdered By: Charles Rico on 01-25-2024 Chloride [Moles/Vol] 103 mmol/L 98-107 [facility] Emergency Department Summary on 01-25-2024 Emergency Department Summary [facility] Medical Records Department [address] [place] [address] Emergency Department Summary 01/25/24 MR#: [id number] Acct: [id number] Name: TERENCE VALDIVIA Rep #: [id number] : 1950 73 From: Charles Rico MD [...] or symptoms. She denies any other injury. [facility] Medical History (Updated 01/25/24 @ 05:03 by [...] 04/30/22 Unknown History release 24 hr vitamins A,C,X-lgyj-xvcyzj 2,148 2 tab PO DAILY 04/30/22 Unknown [...] joints wit (more content not included)... Normal [facility] Eosinophil percentageOrdered By: Charles Rico on 01-25-2024 Eosinophils/100 WBC (Bld) 3.4 % 0-5 [facility] Erythrocyte distribution wid th ratioOrdered By: Charles Rico on 01-25-2024 Erythrocyte distribution width (RBC) [Ratio] 12.2 % 11.6-14.6 [facility] Erythrocyte distribution wid th standard deviationOrdered By: Charles Rico on 01-25-2024 Erythrocyte distribution width (RBC) [Entitic vol] 41.9 fL 35.1-43.9 [facility] Estimated glomerular filtrat ion rate (GFR) AmericanOrdered By: Cahrles Rico on 01-25-2024 Estimated GFR (MDRD) Amer 74 mL/min >60 [facility] Comment on above: GFR Calc Estimation of creatinine caroline aranceOrdered By: Charles Rico on 01-25-2024 Estimated Creatinine Clearance Calc 58.13 ml/min [facility] Glomerular filtration rate ( GFR) estimationOrdered By: Charles Rico on 01-25-2024 Estimated GFR (MDRD) Non-Af Amer 61 mL/min >60 [facility] Comment on above: Non- GFR Calc Glucose measurementOrdered B y: Charles Rico on 01-25-2024 Glucose [Mass/Vol] 198 mg/dL High 74-106 [facility] Comment on above: Fasting Glucose resu lt greater than or equal to 126 mg/dL suggests DIABETES MELLITUS per A.D.A. criteria. Hematocrit Auto (Bld) [Volum e fraction]Ordered By: Charles Rico on 01-25-2024 Hematocrit (Bld) [Volume fraction] 42.5 % 37-47 [facility] Hemoglobin measurementOrdere d By: Charles Rico on 01-25-2024 Hemoglobin (Bld) [Mass/Vol] 15.0 g/dL 12.0-15.0 [facility] Immature granulocytes/100 WB C Auto (Bld)Ordered By: Charles Rico on 01-25-2024 Immature granulocytes/100 WBC (Bld) 0.300 % 0.0-0.9 [facility] Comment on above: IG% - Immature Granu locytes (promyelocytes, myelocytes and metamyelocytes) > 1% indicates that a LEFT SHIFT is Present. LABORATORYOrdered By: Juan Davenport on 01-25-2024 Blood Glucose Interventions Administered agent to decrease blood sugar (01/25/24 9:16 PM) [facility] Work Phone: Blood Glucose Interventions Administered agent to decrease blood sugar (01/25/24 6:10 PM) [facility] Work Phone: Lymphocytes Auto (Unsp spec) [#/Vol]Ordered By: Charles Rico on 01-25-2024 Lymphocytes (Bld) [#/Vol] 0.99 10*3/uL 0.83-4.51 [facility] Lymphocytes/100 WBC Auto (Un sp spec)Ordered By: Charles Rico on 01-25-2024 Lymphocytes/100 WBC (Bld) 14.1 % Low 19-41 [facility] MCV (mean corpuscular volume ) determinationOrdered By: Charles Rico on 01-25-2024 MCV (RBC) [Entitic vol] 93.4 fL 81-99 [facility] Mean corpuscular hemoglobin (MCH) determinationOrdered By: Charles Rico on 01-25-2024 MCH (RBC) [Entitic mass] 33.0 pg High 27.0-32.0 [facility] Mean corpuscular hemoglobin concentration (MCHC) determinationOrdered By: Charles Rico on 01-25-2024 MCHC (RBC) [Mass/Vol] 35.3 g/dL 32-36 [facility] Mean platelet volume determi nationOrdered By: Charles Rico on 01-25-2024 Platelet mean volume (Bld) [Entitic vol] 8.9 fL 6.2-12.0 [facility] Monocyte percentageOrdered B y: Charles Rico on 01-25-2024 Monocytes/100 WBC (Bld) 11.8 % High 0-10 [facility] Neutrophil percentageOrdered By: Charles Rico on 01-25-2024 Neutrophils/100 WBC (Bld) 69.4 % 47-70 [facility] Nucleated red blood cell per centageOrdered By: Charles Rico on 01-25-2024 Nucleated RBC/100 WBC (Bld) [Ratio] 0 % 0-5 [facility] Platelet countOrdered By: Trinity Rico on 01-25-2024 Platelets (Bld) [#/Vol] 192 10*3/uL 150-450 [facility] Potassium measurementOrdered By: Charles Rico on 01-25-2024 Potassium [Moles/Vol] 3.6 mmol/L 3.5-5.1 [facility] RBC Auto (Bld) [#/Vol]Ordere d By: Charles Rico on 01-25-2024 RBC (Bld) [#/Vol] 4.55 10*6/uL 4.2-5.4 [facility] Serum anion gap measurementO rdered By: Charles Rico on 01-25-2024 Anion gap [Moles/Vol] 7 mmol/L 5-15 [facility] Serum or plasma calcium olive urement (mass/volume)Ordered By: Charles Rico on 01-25-2024 Calcium [Mass/Vol] 8.8 mg/dL 8.5-10.1 [facility] Serum or plasma creatinine m easurement (mass/volume)Ordered By: Charles Rico on 01-25-2024 Creatinine [Mass/Vol] 0.95 mg/dL 0.55-1.02 [facility] Comment on above: The validity of the calculated GFR & GFRAA in patients over 70 years has not been determined. Clinical correlation is essential. Serum or plasma urea nitroge n measurement (mass/volume)Ordered By: Charles Rico on 01-25-2024 Urea nitrogen [Mass/Vol] 8 mg/dL 7-18 [facility] Sodium levelOrdered By: Adair Rico on 01-25-2024 Sodium [Moles/Vol] 137 mmol/L 136-145 [facility] White blood cell (WBC) count Ordered By: Charles Rcio on 01-25-2024 WBC (Bld) [#/Vol] 7.0 10*3/uL 4.4-11.0 [facility] Brain/Head without Contrasto n 01-10-2024 Brain/Head without Contrast [facility] Imaging Services [address] [place] [address] Brain/Head without Contrast MR#: [id number] Acct: [id number] Name: TERENCE VALDIVIA Rep #: [id number] : 1950 F 73 From: Aamir frank MD PCP: Dr. Will Lim MD Status: REG CLI Study: Brain/Head without Contrast Date of Exam: 12/29 04/23 Exam# [id number] Ordering Dr: Will Lim [place] [id number] STUDY: CT BRAIN WITHOUT CONTRAST REASON FOR [...] Signed: Aamir Bay MD at 14:31 EST Reading Location ID and State: [facility] / [place] , Service support , CC: Dr. Will Lim MD [employer] Teacher: Signed Normal [facility] Elbow min 3 Viewson 01-10-20 Elbow min 3 Views [facility] Imaging Services [address] [place], [place] [address] Elbow min 3 Views MR#: [id number] Acct: [id number] Name: TERENCE VALDIVIA Rep #: [id number] : 1950 F 73 From: Juan Luis Bejarano DO PCP: Dr. Will Lim MD Status: REG CLI Study: Elbow min 3 Views Date of Exam: 01/10/24 Exam# [id number] Ordering Dr: Will Lim MD [id number] INDICATION: ELBOW PAIN EXAMINATION/TECHNIQUE: X-RAY - LEFT [...] Juan Luis Bejarano DO at 10:53 EST Reading Location ID and State: [facility] / [place] Tel [phone], Service support , CC: Dr. Will Lim MD [employer] Teacher: Signed Normal [facility] Knee 4 or More Viewson 01-09 Knee 4 or More Views [facility] Imaging Services [address] [place] [phone] Knee 4 or More Views MR#: [id number] Acct: [id number] Name: TERENCE VALDIVIA Rep #: [id number] : 1950 F 73 From: Juan Luis Bejarano DO PCP: Dr. Will Lim MD Status: REG CLI Study: Knee 4 or More Views Date of Exam: 01/10/24 Exam# [id number] Ordering Dr: Will Lim MD [id number] INDICATION: KNEE PAIN EXAMINATION/TECHNIQUE: X-RAY - LEFT [...] 10:55 EST Reading Location ID and State: [facility] / [place] Tel [phone], Service support , CC: Dr. Will Lim MD [employer] Teacher: Signed Normal [facility] PET/CT Tumor WB Initialon PET/CT Tumor WB Initial [facility] Imaging Services [address] [place], [place] [address] PET/CT Tumor WB Initial MR#: [id number] Acct: [id number] Name: TERENCE VALDIVIA Rep #: [id number] : 1950 F 73 From: Aramis Diana PCP: Dr. Will Lim MD Status: [facility] Study: PET/CT Tumor WB Initial Date of Exam: 01/03/24 Exam# [id number] Ordering Dr: Will Lim MD [id number] EXAMINATION: FDG PET-CT ? Head to Toe [...] this report are calculated using the exclusive [employer] Technology, (U.S. Patent No. [phone] [place] patent [phone] ). Standardization and correction of the FDG SUV metric exclusively available with [employer] intellectual property, allow for vendor non-specific objective quantitative sequential FDG PET-CT comparison and otherwise unobtainable optimization of the sensitivity and specificity of the examination. [email or web address] Electronically Signed: Aramis Whipple DO at 8:54 EST Reading Location ID and State: [facility] / [place] Tel , Service support , CC: Dr. Will Lim MD [employer] Teacher: Signed Normal [facility] Brain W/WO Contraston 2023 Brain W/WO Contrast [facility] Imaging Services [address] [place] [address] Brain W/WO Contrast MR#: [id number] Acct: [id number] Name: TERENCE VALDIVIA Rep #: [id number] : 1950 F 73 From: Juancarlos Briceño MD PCP: Dr. Will Lim MD Status: REG CLI Study: Brain W/WO Contrast Date of Exam: 01/02/24 Exam# [id number] Ordering Dr: Will Lim MD [id number] EXAM: MR HEAD WITHOUT INTRAVENOUS CONTRAST CLINICAL [...] Signed: Juancarlos Briceño MD at 10:14 EST Reading Location ID and State: [address] [place] [address] Tel , Service support , CC: Dr. Will Lim MD [employer] Teacher: Signed Normal [facility] Myoglobin, Serumon 4 Myoglobin, Ser 33 ng/mL Normal 25-58 [facility] Comment on above: Result Comment: Perf ormed at: CB - [facility] [address] [id number] Acid Patroller: Juan Antonio Rand PhD, Phone: [phone] Performed By: #### L 714.6778, P374.2234, L100.7310, J2142.4146, L501.3306 #### [facility] [address] [place] [address]. [place], [place], [id number] SCRN MAMM (CAD)W/MCKINLEY BILATo n 12-30-2023 SCRN MAMM (CAD)W/MCKINLEY BILAT [facility] Imaging Services [address] [place] [address] SCRN MAMM (CAD)W/MCKINLEY BILAT MR#: [id number] Acct: [id number] Name: TERENCE VALDIVIA Rep #: [id number] : 1950 F 73 From: Aamir frank MD PCP: Dr. Will Lim MD Status: REG CL Study: SCRN MAMM (CAD)W/MCKINLEY BILAT Date of Exam: 03/23 Exam# [id number] Ordering Dr: Will Lim MD [id number] MAMMOGRAPHY - BILATERAL SCREENING REASON FOR EXAM: [...] delay biopsy of a clinically suspicious abnormality. [id number] Electronically Signed: Aamir Bay MD at 13:01 EDT , CC: Dr. Will Lim MD [employer] Teacher: Signed Normal [facility] Basic Metabolic Profile (BMP )on 12-29-2023 BUN/CRE 12.5 RATIO Normal - [facility] Comment on above: Order Comment: 1 Performed By: #### L 501.3620, L500.2500, L100.0100, L3600.5100, L501.4020 #### [facility] [address] [place], [address] CA,Total 9.4 mg/dL Normal 8.5-10.1 [facility] Comment on above: Order Comment: 1 Performed By: #### L 501.3620, L500.2500, L100.0100, L3600.5100, L501.4020 #### [facility] [address] [place], [address] Chloride [Moles/Vol] 109 mmol/L High 98-107 [facility] Comment on above: Order Comment: 1 Performed By: #### L 501.3620, L500.2500, L100.0100, L3600.5100, L501.4020 #### [facility] [address] [place], [address] CO2 [Moles/Vol] 25.0 mmol/L Normal 21.0-32.0 [facility] Comment on above: Order Comment: 1 Performed By: #### L 501.3620, L500.2500, L100.0100, L3600.5100, L501.4020 #### [facility] [address] [place], [address] Creatinine [Mass/Vol] 0.80 mg/dL Normal 0.55-1.02 [facility] Comment on above: Order Comment: 1 Result Comment: The validity of the calculated GFR GFRAA in patients over 70 years has not been determined. Clinical correlation is essential. Performed By: #### L 501.3620, L500.2500, L100.0100, L3600.5100, L501.4020 #### [facility] [address] [place], [address] EST GFR - AA 90 mL/min Normal >60 [facility] Comment on above: Order Comment: 1 Result Comment: Afri can [place] GFR Calc Performed By: #### L 501.3620, L500.2500, L100.0100, L3600.5100, L501.4020 #### [facility] [address] [place], [address] GAP 5 Normal 5-15 [facility] Comment on above: Order Comment: 1 Performed By: #### L 501.3620, L500.2500, L100.0100, L3600.5100, L501.4020 #### [facility] [address] [place], [address] GFR/1.73 sq M.predicted among non-blacks MDRD (S/P/Bld) [Vol rate/Area] 75 mL/min/{1.73_m2} Normal >60 [facility] Comment on above: Order Comment: 1 Result Comment: Non- GFR Calc Performed By: #### L 501.3620, L500.2500, L100.0100, L3600.5100, L501.4020 #### [facility] [address] [place], [address] Glucose [Mass/Vol] 111 mg/dL High 74-106 [facility] Comment on above: Order Comment: 1 Result Comment: Fast ing Glucose result from 100 to 125 mg/dL suggests IMPAIRED HOMEOSTASIS per A.D.A. criteria. Performed By: #### L 501.3620, L500.2500, L100.0100, L3600.5100, L501.4020 #### [facility] [address] [place], [address] Potassium [Moles/Vol] 3.8 mmol/L Normal 3.5-5.1 [facility] Comment on above: Order Comment: 1 Performed By: #### L 501.3620, L500.2500, L100.0100, L3600.5100, L501.4020 #### [facility] [address] [place], [address] Sodium [Moles/Vol] 139 mmol/L Normal 136-145 [facility] Comment on above: Order Comment: 1 Performed By: #### L 501.3620, L500.2500, L100.0100, L3600.5100, L501.4020 #### [facility] [address] [place], [address] Urea nitrogen [Mass/Vol] 10 mg/dL Normal 7-18 [facility] Comment on above: Order Comment: 1 Performed By: #### L 501.3620, L500.2500, L100.0100, L3600.5100, L501.4020 #### [facility] [address] [place], [address] CBC W/Diff, Automatedon 10-3 Absolute Lymph 1.36 X10 3/uL Normal 0.83-4.51 [facility] Comment on above: Performed By: #### L 501.3620, L500.2500, L100.0100, L3600.5100, L501.4020 #### [facility] [address] [place], [address] Absolute Neut 4.9 X10 3/uL Normal 2.0-7.7 [facility] Comment on above: Performed By: #### L 501.3620, L500.2500, L100.0100, L3600.5100, L501.4020 #### [facility] [address] [place], [address] Basophils/100 WBC (Bld) 0.6 % Normal 0-1 [facility] Comment on above: Performed By: #### L 501.3620, L500.2500, L100.0100, L3600.5100, L501.4020 #### [facility] [address] [place], [address] Eosinophils/100 WBC (Bld) 1.1 % Normal 0-5 [facility] Comment on above: Performed By: #### L 501.3620, L500.2500, L100.0100, L3600.5100, L501.4020 #### [facility] [address] [place], [address] Erythrocyte distribution width (RBC) [Ratio] 12.0 % Normal 11.6-14.6 [facility] Comment on above: Performed By: #### L 501.3620, L500.2500, L100.0100, L3600.5100, L501.4020 #### [facility] [address] [place], [address] Hematocrit (Bld) [Volume fraction] 44.3 % Normal 37-47 [facility] Comment on above: Performed By: #### L 501.3620, L500.2500, L100.0100, L3600.5100, L501.4020 #### [facility] [address] [place], [address] Hemoglobin (Bld) [Mass/Vol] 15.1 g/dL High 12.0-15.0 [facility] Comment on above: Performed By: #### L 501.3620, L500.2500, L100.0100, L3600.5100, L501.4020 #### [facility] [address] [place], [address] IG% 0.300 Normal 0.0-0.9 [facility] Comment on above: Result Comment: IG% - Immature Granulocytes (promyelocytes, myelocytes and metamyelocytes) > 1% indicates that a LEFT SHIFT is Present. Performed By: #### L 501.3620, L500.2500, L100.0100, L3600.5100, L501.4020 #### [facility] [address] [place], [address] Lymphocytes/100 WBC (Bld) 19.3 % Normal 19-41 [facility] Comment on above: Performed By: #### L 501.3620, L500.2500, L100.0100, L3600.5100, L501.4020 #### [facility] [address] [place], [address] MCH (RBC) [Entitic mass] 32.8 pg High 27.0-32.0 [facility] Comment on above: Performed By: #### L 501.3620, L500.2500, L100.0100, L3600.5100, L501.4020 #### [facility] [address] [place], [address] MCHC (RBC) [Mass/Vol] 34.1 g/dL Normal 32-36 [facility] Comment on above: Performed By: #### L 501.3620, L500.2500, L100.0100, L3600.5100, L501.4020 #### [facility] [address] [place], [address] MCV (RBC) [Entitic vol] 96.3 fL Normal 81-99 [facility] Comment on above: Performed By: #### L 501.3620, L500.2500, L100.0100, L3600.5100, L501.4020 #### [facility] [address] [place], [address] Monocytes/100 WBC (Bld) 8.5 % Normal 0-10 [facility] Comment on above: Performed By: #### L 501.3620, L500.2500, L100.0100, L3600.5100, L501.4020 #### [facility] [address] [place], [address] Neutrophils/100 WBC (Bld) 70.2 % High 47-70 [facility] Comment on above: Performed By: #### L 501.3620, L500.2500, L100.0100, L3600.5100, L501.4020 #### [facility] [address] [place], [address] Nucleated RBC (Bld) [#/Vol] 0 10*3/uL Normal 0-5 [facility] Comment on above: Performed By: #### L 501.3620, L500.2500, L100.0100, L3600.5100, L501.4020 #### [facility] [address] [place], [address] Platelet mean volume (Bld) [Entitic vol] 9.3 fL Normal 6.2-12.0 [facility] Comment on above: Performed By: #### L 501.3620, L500.2500, L100.0100, L3600.5100, L501.4020 #### [facility] [address] [place], [address] Platelets (Bld) [#/Vol] 244 10*3/uL Normal 150-450 [facility] Comment on above: Performed By: #### L 501.3620, L500.2500, L100.0100, L3600.5100, L501.4020 #### [facility] [address] [place], [address] RBC (Bld) [#/Vol] 4.60 10*6/uL Normal 4.2-5.4 [facility] Comment on above: Performed By: #### L 501.3620, L500.2500, L100.0100, L3600.5100, L501.4020 #### [facility] [address] [place], [address] RDW SD 42.7 fl Normal 35.1-43.9 [facility] Comment on above: Performed By: #### L 501.3620, L500.2500, L100.0100, L3600.5100, L501.4020 #### [facility] [address] [place], [address] WBC (Bld) [#/Vol] 7.0 10*3/uL Normal 4.4-11.0 [facility] Comment on above: Performed By: #### L 501.3620, L500.2500, L100.0100, L3600.5100, L501.4020 #### [facility] [address] [place], [address] CPK Total, Creatine Kinaseon 12-29-2023 CPK TOTAL 81 U/L Normal 26-192 [facility] Comment on above: Order Comment: 1 Performed By: #### L 501.3620, L500.2500, L100.0100, L3600.5100, L501.4020 #### [facility] [address] [place], [address] CT Chest, Abd, Pel w/Contras ton 12-29-2023 CT Chest, Abd, Pel w/Contrast [facility] Imaging Services [address] [place] [address] CT Chest, Abd, Pel w/Contrast MR#: [id number] Acct: [id number] Name: TERENCE VALDIVIA Rep #: [id number] : 1950 F 73 From: Aamir frank MD PCP: Dr. Wlil Lim MD Status: REG CLI Study: CT Chest, Abd, Pel w/Contrast Date of Exam: Exam# [id number] Ordering Dr: Will Lim MD [id number] STUDY: CT CHEST, ABDOMEN T PELVIS WITH [...] 14:53 EDT Reading Location ID and State: [facility] / [place] , Service support , CC: Dr. Will Lim MD [employer] Teacher: Signed Normal [facility] L501.4020on 12-29-2023 TROPONIN-I HS 3 pg/mL Normal 3.0-54.0 [facility] Comment on above: Order Comment: 1 Result Comment: Plea se Note: New Test Units and Gender Specific Reference Ranges. For more information see Policy Stat Procedure [place] High Sensitivity Troponin (TNIH) and attachments. Performed By: #### L 501.3620, L500.2500, L100.0100, L3600.5100, L501.4020 #### [facility] [address] [facility] [place], [address] Brain/Head W/WO Contraston 1 Brain/Head W/WO Contrast [facility] Imaging Services [address] [place] [address] Brain/Head W/WO Contrast MR#: [id number] Acct: [id number] Name: TERENCE VALDIVIA Rep #: [id number] : 1950 F 73 From: Aamir frank MD PCP: Dr. Will Lim MD Status: REG CLI Study: Brain/Head W/WO Contrast Date of Exam: 4 Exam# [id number] Ordering Dr: Will Lim MD [id number] STUDY: CT BRAIN WITH AND WITHOUT CONTRAST [...] EDT , CC: Dr. Will Lim MD [employer] Teacher: Signed Normal [facility] CBC W/Diff, Automatedon - Absolute Lymph 1.46 X10 3/uL Normal 0.83-4.51 [facility] Comment on above: Performed By: #### L 501.3620, L500.2500, L100.0100, L3600.5100, L501.4020 #### [facility] [address] [place], [address] Absolute Neut 4.0 X10 3/uL Normal 2.0-7.7 [facility] Comment on above: Performed By: #### L 501.3620, L500.2500, L100.0100, L3600.5100, L501.4020 #### [facility] [address] [place], [address] Basophils/100 WBC (Bld) 0.7 % Normal 0-1 [facility] Comment on above: Performed By: #### L 501.3620, L500.2500, L100.0100, L3600.5100, L501.4020 #### [facility] [address] [place], [address] Eosinophils/100 WBC (Bld) 1.0 % Normal 0-5 [facility] Comment on above: Performed By: #### L 501.3620, L500.2500, L100.0100, L3600.5100, L501.4020 #### [facility] [address] [place], [address] Erythrocyte distribution width (RBC) [Ratio] 12.2 % Normal 11.6-14.6 [facility] Comment on above: Performed By: #### L 501.3620, L500.2500, L100.0100, L3600.5100, L501.4020 #### [facility] [address] [place], [address] Hematocrit (Bld) [Volume fraction] 44.7 % Normal 37-47 [facility] Comment on above: Performed By: #### L 501.3620, L500.2500, L100.0100, L3600.5100, L501.4020 #### [facility] [address] [place], [address] Hemoglobin (Bld) [Mass/Vol] 14.9 g/dL Normal 12.0-15.0 [facility] Comment on above: Performed By: #### L 501.3620, L500.2500, L100.0100, L3600.5100, L501.4020 #### [facility] [address] [place], [address] IG% 0.300 Normal 0.0-0.9 [facility] Comment on above: Result Comment: IG% - Immature Granulocytes (promyelocytes, myelocytes and metamyelocytes) > 1% indicates that a LEFT SHIFT is Present. Performed By: #### L 501.3620, L500.2500, L100.0100, L3600.5100, L501.4020 #### [facility] [address] [place], [address] Lymphocytes/100 WBC (Bld) 24.0 % Normal 19-41 [facility] Comment on above: Performed By: #### L 501.3620, L500.2500, L100.0100, L3600.5100, L501.4020 #### [facility] [address] [place], [address] MCH (RBC) [Entitic mass] 32.3 pg High 27.0-32.0 [facility] Comment on above: Performed By: #### L 501.3620, L500.2500, L100.0100, L3600.5100, L501.4020 #### [facility] [address] [place], [address] MCHC (RBC) [Mass/Vol] 33.3 g/dL Normal 32-36 [facility] Comment on above: Performed By: #### L 501.3620, L500.2500, L100.0100, L3600.5100, L501.4020 #### [facility] [address] [place], [address] MCV (RBC) [Entitic vol] 96.8 fL Normal 81-99 [facility] Comment on above: Performed By: #### L 501.3620, L500.2500, L100.0100, L3600.5100, L501.4020 #### [facility] [address] [place], [address] Monocytes/100 WBC (Bld) 7.9 % Normal 0-10 [facility] Comment on above: Performed By: #### L 501.3620, L500.2500, L100.0100, L3600.5100, L501.4020 #### [facility] [address] [place], [address] Neutrophils/100 WBC (Bld) 66.1 % Normal 47-70 [facility] Comment on above: Performed By: #### L 501.3620, L500.2500, L100.0100, L3600.5100, L501.4020 #### [facility] [address] [place], [address] Nucleated RBC (Bld) [#/Vol] 0 10*3/uL Normal 0-5 [facility] Comment on above: Performed By: #### L 501.3620, L500.2500, L100.0100, L3600.5100, L501.4020 #### [facility] [address] [place], [address] Platelet mean volume (Bld) [Entitic vol] 9.2 fL Normal 6.2-12.0 [facility] Comment on above: Performed By: #### L 501.3620, L500.2500, L100.0100, L3600.5100, L501.4020 #### [facility] [address] [place], [address] Platelets (Bld) [#/Vol] 237 10*3/uL Normal 150-450 [facility] Comment on above: Performed By: #### L 501.3620, L500.2500, L100.0100, L3600.5100, L501.4020 #### [facility] [address] [place], [address] RBC (Bld) [#/Vol] 4.62 10*6/uL Normal 4.2-5.4 [facility] Comment on above: Performed By: #### L 501.3620, L500.2500, L100.0100, L3600.5100, L501.4020 #### [facility] [address] [place], [address] RDW SD 43.5 fl Normal 35.1-43.9 [facility] Comment on above: Performed By: #### L 501.3620, L500.2500, L100.0100, L3600.5100, L501.4020 #### [facility] [address] [place], [address] WBC (Bld) [#/Vol] 6.1 10*3/uL Normal 4.4-11.0 [facility] Comment on above: Performed By: #### L 501.3620, L500.2500, L100.0100, L3600.5100, L501.4020 #### [facility] [address] [place], [address] Comprehensive Metabolic Prof [facility] 12-27-2023 Albumin [Mass/Vol] 3.8 g/dL Normal 3.2-5.0 [facility] Comment on above: Performed By: #### L 501.3620, L500.2500, L100.0100, L3600.5100, L501.4020 #### [facility] [address] [place], [address] Albumin/Globulin [Mass ratio] 1.2 {ratio} Normal 0.9-2.4 [facility] Comment on above: Performed By: #### L 501.3620, L500.2500, L100.0100, L3600.5100, L501.4020 #### [facility] [address] [place], [address] ALK P 148 U/L High 45-117 [facility] Comment on above: Performed By: #### L 501.3620, L500.2500, L100.0100, L3600.5100, L501.4020 #### [facility] [address] [place], [address] ALT [Catalytic activity/Vol] 42 U/L Normal 13-56 [facility] Comment on above: Performed By: #### L 501.3620, L500.2500, L100.0100, L3600.5100, L501.4020 #### [facility] [address] [place], [address] AST [Catalytic activity/Vol] 28 U/L Normal 15-37 [facility] Comment on above: Performed By: #### L 501.3620, L500.2500, L100.0100, L3600.5100, L501.4020 #### [facility] [address] [place], [address] Bilirubin [Mass/Vol] 0.90 mg/dL Normal 0.20-1.00 [facility] Comment on above: Result Comment: For patients on eltrombopag therapy, use of Dimension [place] TBIL is not recommended. Performed By: #### L 501.3620, L500.2500, L100.0100, L3600.5100, L501.4020 #### [facility] [address] [place], [address] BUN/CRE 13.2 RATIO Normal 10-20 [facility] Comment on above: Performed By: #### L 501.3620, L500.2500, L100.0100, L3600.5100, L501.4020 #### [facility] [address] [place], [address] CA,Total 9.1 mg/dL Normal 8.5-10.1 [facility] Comment on above: Performed By: #### L 501.3620, L500.2500, L100.0100, L3600.5100, L501.4020 #### [facility] [address] [place], [address] Chloride [Moles/Vol] 107 mmol/L Normal 98-107 [facility] Comment on above: Performed By: #### L 501.3620, L500.2500, L100.0100, L3600.5100, L501.4020 #### [facility] [address] [place], [address] CO2 [Moles/Vol] 29.0 mmol/L Normal 21.0-32.0 [facility] Comment on above: Performed By: #### L 501.3620, L500.2500, L100.0100, L3600.5100, L501.4020 #### [facility] [address] [place], [address] Creatinine [Mass/Vol] 0.83 mg/dL Normal 0.55-1.02 [facility] Comment on above: Result Comment: The validity of the calculated GFR GFRAA in patients over 70 years has not been determined. Clinical correlation is essential. Performed By: #### L 501.3620, L500.2500, L100.0100, L3600.5100, L501.4020 #### [facility] [address] [place], [address] EST GFR - AA 86 mL/min Normal >60 [facility] Comment on above: Result Comment: Afri can [place] GFR Calc Performed By: #### L 501.3620, L500.2500, L100.0100, L3600.5100, L501.4020 #### [facility] [address] [place], [address] GAP 4 Low 5-15 [facility] Comment on above: Performed By: #### L 501.3620, L500.2500, L100.0100, L3600.5100, L501.4020 #### [facility] [address] [place], [address] GFR/1.73 sq M.predicted among non-blacks MDRD (S/P/Bld) [Vol rate/Area] 71 mL/min/{1.73_m2} Normal >60 [facility] Comment on above: Result Comment: Non- GFR Calc Performed By: #### L 501.3620, L500.2500, L100.0100, L3600.5100, L501.4020 #### [facility] [address] [place], [address] Globulin (S) [Mass/Vol] 3.3 g/dL Normal 2.2-4.2 [facility] Comment on above: Performed By: #### L 501.3620, L500.2500, L100.0100, L3600.5100, L501.4020 #### [facility] [address] [place], [address] Glucose [Mass/Vol] 137 mg/dL High 74-106 [facility] Comment on above: Result Comment: Fast ing Glucose result greater than or equal to 126 mg/dL suggests DIABETES MELLITUS per A.D.A. criteria. Performed By: #### L 501.3620, L500.2500, L100.0100, L3600.5100, L501.4020 #### [facility] [address] [place], [address] Potassium [Moles/Vol] 4.0 mmol/L Normal 3.5-5.1 [facility] Comment on above: Performed By: #### L 501.3620, L500.2500, L100.0100, L3600.5100, L501.4020 #### [facility] [address] [place], [address] Sodium [Moles/Vol] 140 mmol/L Normal 136-145 [facility] Comment on above: Performed By: #### L 501.3620, L500.2500, L100.0100, L3600.5100, L501.4020 #### [facility] [address] [place], [address] T PROT 7.1 g/dL Normal 6.4-8.2 [facility] Comment on above: Performed By: #### L 501.3620, L500.2500, L100.0100, L3600.5100, L501.4020 #### [facility] [address] [place], [address] Urea nitrogen [Mass/Vol] 11 mg/dL Normal 7-18 [facility] Comment on above: Performed By: #### L 501.3620, L500.2500, L100.0100, L3600.5100, L501.4020 #### [facility] [address] [place], [address] Elbow min 3 Viewson 12-27-19 Elbow min 3 Views [facility] Imaging Services [address] [place] [address] Elbow min 3 Views MR#: [id number] Acct: [id number] Name: TERENCE VALDIVIA Rep #: [id number] : 1950 F 73 From: Aamir frank MD PCP: Dr. Will Lim MD Status: REG CLI Study: Elbow min 3 Views Date of Exam: 12/27/23 Exam# [id number] Ordering Dr: Will Lim MD [id number] STUDY: X-RAY - LEFT ELBOW REASON FOR [...] EDT , CC: Dr. Will Lim MD [employer] Teacher: Signed Normal [facility] Ribs Uni Min 3V w/PA Cheston 12-27-2023 Ribs Uni Min 3V w/PA Chest [facility] Imaging Services [address] [place], [place] [address] Ribs Uni Min 3V w/PA Chest MR#: [id number] Acct: [id number] Name: TERENCE VALDIVIA Rep #: [id number] : 1950 F 73 From: Aamir frank MD PCP: Dr. Will Lim MD Status: REG [facility] Study: Ribs Uni Min 3V w/PA Chest Date of Exam: 12/26 Exam# [id number] Ordering Dr: Will Lim MD [id number] STUDY: X-RAY - UNILATERAL RIBS ( LEFT [...] EDT , CC: Dr. Will Lim MD [employer] Teacher: Signed Normal [facility] Inital Evaluation (1) - PTon 2023 Inital Evaluation (1) - PT [facility] Physical Therapy [facility] [facility] [address] [place] [address] / REHABILITATION SERVICES INITIAL EVALUATION MR#: [id number] Acct: [id number] Name: TERENCE VALDIVIA Rep #: [id number] : 1950 72 From: Cassidy Patino PT. T, OCS Referring Dr.: Dr. Will Lim MD Status: REG RCR Insurance: MEDICARE PART A B [facility] [id number] [facility] Patient's Visit Information Visit Information Visit Information: [...] normal states legs gives way. Patient seen recommended PT and plan to see back specialist [...] to be FAXED BACK to us at [phone] for Medicare purposes. For Medicare only, by signing this I certify the plan of care. Please let me know if there are questions or concerns regarding this plan of care. Physician Signature: (more content not included)... Normal [facility] CBC W/Diff, Automatedon 10-0 Absolute Lymph 1.85 X10 3/uL Normal 0.83-4.51 [facility] Comment on above: Performed By: #### L 501.3620, L500.2500, L100.0100, L3600.5100, L501.4020 #### [facility] [address] [place], [address] Absolute Neut 3.7 X10 3/uL Normal 2.0-7.7 [facility] Comment on above: Performed By: #### L 501.3620, L500.2500, L100.0100, L3600.5100, L501.4020 #### [facility] [address] [place], [address] Basophils/100 WBC (Bld) 0.6 % Normal 0-1 [facility] Comment on above: Performed By: #### L 501.3620, L500.2500, L100.0100, L3600.5100, L501.4020 #### [facility] [address] [place], [address] Eosinophils/100 WBC (Bld) 1.5 % Normal 0-5 [facility] Comment on above: Performed By: #### L 501.3620, L500.2500, L100.0100, L3600.5100, L501.4020 #### [facility] [address] [place], [address] Erythrocyte distribution width (RBC) [Ratio] 12.2 % Normal 11.6-14.6 [facility] Comment on above: Performed By: #### L 501.3620, L500.2500, L100.0100, L3600.5100, L501.4020 #### [facility] [address] [place], [address] Hematocrit (Bld) [Volume fraction] 41.8 % Normal 37-47 [facility] Comment on above: Performed By: #### L 501.3620, L500.2500, L100.0100, L3600.5100, L501.4020 #### [facility] [address] [place], [address] Hemoglobin (Bld) [Mass/Vol] 14.4 g/dL Normal 12.0-15.0 [facility] Comment on above: Performed By: #### L 501.3620, L500.2500, L100.0100, L3600.5100, L501.4020 #### [facility] [address] [place], [address] IG% 0.200 Normal 0.0-0.9 [facility] Comment on above: Result Comment: IG% - Immature Granulocytes (promyelocytes, myelocytes and metamyelocytes) > 1% indicates that a LEFT SHIFT is Present. Performed By: #### L 501.3620, L500.2500, L100.0100, L3600.5100, L501.4020 #### [facility] [address] [facility] [place], [address] Lymphocytes/100 WBC (Bld) 29.8 % Normal 19-41 [facility] Comment on above: Performed By: #### L 501.3620, L500.2500, L100.0100, L3600.5100, L501.4020 #### [facility] [address] [place], [address] MCH (RBC) [Entitic mass] 33.0 pg High 27.0-32.0 [facility] Comment on above: Performed By: #### L 501.3620, L500.2500, L100.0100, L3600.5100, L501.4020 #### [facility] [address] [place], [address] MCHC (RBC) [Mass/Vol] 34.4 g/dL Normal 32-36 [facility] Comment on above: Performed By: #### L 501.3620, L500.2500, L100.0100, L3600.5100, L501.4020 #### [facility] [address] [place], [address] MCV (RBC) [Entitic vol] 95.9 fL Normal 81-99 [facility] Comment on above: Performed By: #### L 501.3620, L500.2500, L100.0100, L3600.5100, L501.4020 #### [facility] [address] [place], [address] Monocytes/100 WBC (Bld) 8.9 % Normal 0-10 [facility] Comment on above: Performed By: #### L 501.3620, L500.2500, L100.0100, L3600.5100, L501.4020 #### [facility] [address] [place], [address] Neutrophils/100 WBC (Bld) 59.0 % Normal 47-70 [facility] Comment on above: Performed By: #### L 501.3620, L500.2500, L100.0100, L3600.5100, L501.4020 #### [facility] [address] [place], [address] Nucleated RBC (Bld) [#/Vol] 0 10*3/uL Normal 0-5 [facility] Comment on above: Performed By: #### L 501.3620, L500.2500, L100.0100, L3600.5100, L501.4020 #### [facility] [address] [place], [address] Platelet mean volume (Bld) [Entitic vol] 9.7 fL Normal 6.2-12.0 [facility] Comment on above: Performed By: #### L 501.3620, L500.2500, L100.0100, L3600.5100, L501.4020 #### [facility] [address] [place], [address] Platelets (Bld) [#/Vol] 267 10*3/uL Normal 150-450 [facility] Comment on above: Performed By: #### L 501.3620, L500.2500, L100.0100, L3600.5100, L501.4020 #### [facility] [address] [place], [address] RBC (Bld) [#/Vol] 4.36 10*6/uL Normal 4.2-5.4 [facility] Comment on above: Performed By: #### L 501.3620, L500.2500, L100.0100, L3600.5100, L501.4020 #### [facility] [address] [place], [address] RDW SD 43.3 fl Normal 35.1-43.9 [facility] Comment on above: Performed By: #### L 501.3620, L500.2500, L100.0100, L3600.5100, L501.4020 #### [facility] [address] [place], [address] WBC (Bld) [#/Vol] 6.2 10*3/uL Normal 4.4-11.0 [facility] Comment on above: Performed By: #### L 501.3620, L500.2500, L100.0100, L3600.5100, L501.4020 #### [facility] [address] [place], [address] Comprehensive Metabolic [facility] 12-01-2023 Albumin [Mass/Vol] 3.7 g/dL Normal 3.2-5.0 [facility] Comment on above: Performed By: #### L 501.3620, L500.2500, L100.0100, L3600.5100, L501.4020 #### [facility] [address] [place], [address] Albumin/Globulin [Mass ratio] 1.1 {ratio} Normal 0.9-2.4 [facility] Comment on above: Performed By: #### L 501.3620, L500.2500, L100.0100, L3600.5100, L501.4020 #### [facility] [address] [place], [address] ALK P 139 U/L High 45-117 [facility] Comment on above: Performed By: #### L 501.3620, L500.2500, L100.0100, L3600.5100, L501.4020 #### [facility] [address] [place], [address] ALT [Catalytic activity/Vol] 51 U/L Normal 13-56 [facility] Comment on above: Performed By: #### L 501.3620, L500.2500, L100.0100, L3600.5100, L501.4020 #### [facility] [address] [place], [address] AST [Catalytic activity/Vol] 48 U/L High 15-37 [facility] Comment on above: Result Comment: Mode rate Hemolysis, Result may be falsely increased. Performed By: #### L 501.3620, L500.2500, L100.0100, L3600.5100, L501.4020 #### [facility] [address] [place], [address] Bilirubin [Mass/Vol] 1.00 mg/dL Normal 0.20-1.00 [facility] Comment on above: Result Comment: For patients on eltrombopag therapy, use of Dimension [place] TBIL is not recommended. Performed By: #### L 501.3620, L500.2500, L100.0100, L3600.5100, L501.4020 #### [facility] [address] [place], [address] BUN/CRE 12.9 RATIO Normal 10-20 [facility] Comment on above: Performed By: #### L 501.3620, L500.2500, L100.0100, L3600.5100, L501.4020 #### [facility] [address] [place], [address] CA,Total 9.3 mg/dL Normal 8.5-10.1 [facility] Comment on above: Performed By: #### L 501.3620, L500.2500, L100.0100, L3600.5100, L501.4020 #### [facility] [address] [place], [address] Chloride [Moles/Vol] 106 mmol/L Normal 98-107 [facility] Comment on above: Performed By: #### L 501.3620, L500.2500, L100.0100, L3600.5100, L501.4020 #### [facility] [address] [place], [address] CO2 [Moles/Vol] 29.0 mmol/L Normal 21.0-32.0 [facility] Comment on above: Performed By: #### L 501.3620, L500.2500, L100.0100, L3600.5100, L501.4020 #### [facility] [address] [place], [address] Creatinine [Mass/Vol] 0.85 mg/dL Normal 0.55-1.02 [facility] Comment on above: Result Comment: The validity of the calculated GFR GFRAA in patients over 70 years has not been determined. Clinical correlation is essential. Performed By: #### L 501.3620, L500.2500, L100.0100, L3600.5100, L501.4020 #### [facility] [address] [place], [address] EST GFR - AA 84 mL/min Normal >60 [facility] Comment on above: Result Comment: Afri can [place] GFR Calc Performed By: #### L 501.3620, L500.2500, L100.0100, L3600.5100, L501.4020 #### [facility] [address] [place], [address] GAP 5 Normal 5-15 [facility] Comment on above: Performed By: #### L 501.3620, L500.2500, L100.0100, L3600.5100, L501.4020 #### [facility] [address] [place], [address] GFR/1.73 sq M.predicted among non-blacks MDRD (S/P/Bld) [Vol rate/Area] 70 mL/min/{1.73_m2} Normal >60 [facility] Comment on above: Result Comment: Non- GFR Calc Performed By: #### L 501.3620, L500.2500, L100.0100, L3600.5100, L501.4020 #### [facility] [address] [place], [address] Globulin (S) [Mass/Vol] 3.4 g/dL Normal 2.2-4.2 [facility] Comment on above: Performed By: #### L 501.3620, L500.2500, L100.0100, L3600.5100, L501.4020 #### [facility] [address] [place], [address] Glucose [Mass/Vol] 104 mg/dL Normal 74-106 [facility] Comment on above: Result Comment: Fast ing Glucose result from 100 to 125 mg/dL suggests IMPAIRED HOMEOSTASIS per A.D.A. criteria. Performed By: #### L 501.3620, L500.2500, L100.0100, L3600.5100, L501.4020 #### [facility] [address] [place], [address] Potassium [Moles/Vol] 3.9 mmol/L Normal 3.5-5.1 [facility] Comment on above: Result Comment: Mode rate Hemolysis, Result may be falsely increased. Performed By: #### L 501.3620, L500.2500, L100.0100, L3600.5100, L501.4020 #### [facility] [address] [place], [address] Sodium [Moles/Vol] 139 mmol/L Normal 136-145 [facility] Comment on above: Performed By: #### L 501.3620, L500.2500, L100.0100, L3600.5100, L501.4020 #### [facility] [address] [place], [address] T PROT 7.1 g/dL Normal 6.4-8.2 [facility] Comment on above: Performed By: #### L 501.3620, L500.2500, L100.0100, L3600.5100, L501.4020 #### [facility] [address] [place], [address] Urea nitrogen [Mass/Vol] 11 mg/dL Normal 7-18 [facility] Comment on above: Performed By: #### L 501.3620, L500.2500, L100.0100, L3600.5100, L501.4020 #### [facility] [address] [place], [address] Thyroid Stim Hormone (TSH)on 12-01-2023 TSH 1.950 uIU/mL Normal 0.358-3.740 [facility] Comment on above: Performed By: #### L 501.3620, L500.2500, L100.0100, L3600.5100, L501.4020 #### [facility] [address] [place], [address] Vitamin D,25 Hydroxyon 11-30 Vitamin D 25-OH 31.6 ng/mL Normal [facility] Comment on above: Result Comment: Rebeca min D 25(OH) Status Range Deficiency <20 ng/mL (50nmol/L) Insufficiency 20 - 30 ng/mL (50 - 75 nmol/L) Sufficiency 30 - 100 ng/mL (75 - 250 nmol/L) Toxicity >100 ng/mL (>250 nmol/L) Performed By: #### L 501.3620, L500.2500, L100.0100, L3600.5100, L501.4020 #### [facility] [place], [address] Absolute lymphocyte countOrd ered By: Will Lim on 05-26-2023 Lymphocytes Auto (Unsp spec) [#/Vol] 1.39 10*3/uL 0.83-4.51 [facility] Automated lymphocyte count a s percentage of total leukocytesOrdered By: Will Lim on 05-26-2023 Lymphocytes/100 WBC Auto (Unsp spec) 26.3 % 19-41 [facility] Basophil percentageOrdered B y: Will Lim on 05-26-2023 Basophils/100 WBC (Bld) 0.9 % 0-1 [facility] Bilirubin [Mass/Vol] 0.70 mg/dL 0.20-1.00 [facility] Comment on above: For patients on eltr ombopag therapy, use of Dimension [place] TBIL is not recommended. Chloride [Moles/Vol] 109 mmol/L 98-107 [facility] Eosinophils/100 WBC (Bld) 1.7 % 0-5 [facility] Glucose [Mass/Vol] 122 mg/dL 74-106 [facility] Comment on above: Fasting Glucose resu lt from 100 to 125 mg/dL suggests IMPAIRED HOMEOSTASIS per A.D.A. criteria. Hemoglobin (Bld) [Mass/Vol] 14.4 g/dL 12.0-15.0 [facility] Monocytes/100 WBC (Bld) 10.2 % 0-10 [facility] Neutrophils (Bld) [#/Vol] 3.2 10*3/uL 2.0-7.7 [facility] Neutrophils/100 WBC (Bld) 60.7 % 47-70 [facility] Potassium [Moles/Vol] 4.3 mmol/L 3.5-5.1 [facility] Protein [Mass/Vol] 6.8 g/dL 6.4-8.2 [facility] Sodium [Moles/Vol] 142 mmol/L 136-145 [facility] WBC (Bld) [#/Vol] 5.3 10*3/uL 4.4-11.0 [facility] Determination of erythrocyte mean corpuscular volume (MCV)Ordered By: Will Lim on 05-26-2023 MCV (RBC) [Entitic vol] 98.6 fL 81-99 [facility] Erythrocyte distribution wid th ratioOrdered By: [facility] Erythrocyte distribution width (RBC) [Ratio] 12.4 % 11.6-14.6 [facility] Erythrocyte distribution wid th standard deviationOrdered By: [facility] on 05-[facility]23 Erythrocyte distribution width (RBC) [Entitic vol] 45.2 fL 35.1-43.9 [facility] Hematocrit Auto (Bld) [Volum e fraction]Ordered By: [facility]23 Hematocrit (Bld) [Volume fraction] 43.0 % 37-47 [facility] Immature granulocytes/100 WB C Auto (Bld)Ordered By: [facility] on 05-26-2023 Immature granulocytes/100 WBC (Bld) 0.200 % 0.0-0.9 [facility] Comment on above: IG% - Immature Granu locytes (promyelocytes, myelocytes and metamyelocytes) > 1% indicates that a LEFT SHIFT is Present. Laboratory - Chemistry and C hemistry - challengeOrdered By: [facility] Albumin/Globulin [Mass ratio] 1.1 {ratio} 0.9-2.4 [facility] ALP [Catalytic activity/Vol] 112 U/L 45-117 [facility] ALT [Catalytic activity/Vol] 64 U/L 13-56 [facility] CO2 [Moles/Vol] 29.0 mmol/L 21.0-32.0 [facility] Globulin (S) [Mass/Vol] 3.2 g/dL 2.2-4.2 [facility] Urea nitrogen/Creatinine [Mass ratio] 10.5 mg/mg 10-20 [facility] - Hematology and Cell countsOrdered By: Will Lim on 05-26-2023 MCH (RBC) [Entitic mass] 33.0 pg 27.0-32.0 [facility] MCHC (RBC) [Mass/Vol] 33.5 g/dL 32-36 [facility] Nucleated RBC/100 WBC (Bld) [Ratio] 0 % 0-5 [facility] Platelet mean volume (Bld) [Entitic vol] 9.3 fL 6.2-12.0 [facility] Platelets (Bld) [#/Vol] 229 10*3/uL 150-450 [facility] No Panel InformationOrdered By: Will Lim on 05-26-2023 Estimated GFR (MDRD) Amer 83 mL/min >60 [facility] Comment on above: GFR Calc Estimated GFR (MDRD) Non-Af Amer 69 mL/min >60 [facility] Comment on above: Non- GFR Calc Vitamin D 25-Hydroxy 30.7 ng/mL [facility] Comment on above: Vitamin D 25(OH) Sta tus Range Deficiency <20 ng/mL (50nmol/L) Insufficiency 20 - 30 ng/mL (50 - 75 nmol/L) Sufficiency 30 - 100 ng/mL (75 - 250 nmol/L) Toxicity >100 ng/mL (>250 nmol/L) RBC Auto (Bld) [#/Vol]Ordere d By: Will Lim on 05-26-2023 RBC (Bld) [#/Vol] 4.36 10*6/uL 4.2-5.4 [facility] Serum or plasma calcium olive urement (mass/volume)Ordered By: Will Lim on 05-26-2023 Calcium [Mass/Vol] 8.9 mg/dL 8.5-10.1 [facility] Serum or plasma creatinine m easurement (mass/volume)Ordered By: Will Lim on 05-26-2023 Creatinine [Mass/Vol] 0.86 mg/dL 0.55-1.02 [facility] Comment on above: The validity of the calculated GFR & GFRAA in patients over 70 years has not been determined. Clinical correlation is essential. Serum or plasma thyroid stim ulating hormone (TSH) measurement (units/volume)Ordered By: Will Lim on 05-26-2023 TSH Qn 1.36 uIU/mL 0.358-3.74 [facility] Serum or plasma urea nitroge n measurement (mass/volume)Ordered By: Will Lim on 05-26-2023 Urea nitrogen [Mass/Vol] 9 mg/dL 7-18 [facility] Thin prep Papanicolaou smear with manual screeningOrdered By: Will Raphael on 05-26-2023 Thin prep Papanicolaou smear with manual screening 3.6 g/dL 3.2-5.0 [facility] Thin prep Papanicolaou smear with manual screening 34 U/L 15-37 [facility] Thin prep Papanicolaou smear with manual screening 4 5-15 [facility] - Microbiology an d Antimicrobial susceptibilityOrdered By: Will Lim on 05-10-2023 SARS-CoV-2 (COVID-19) RNA TERESA+probe Ql (Unsp spec) [facility] No Panel InformationOrdered By: Will Lim on 01-13-2023 Thyroid Stimulating Hormone (TSH) 0.25 uIU/mL 0.358-3.74 [facility] Absolute lymphocyte countOrd ered By: Will Raphael on 11-22-2022 Lymphocytes Auto (Unsp spec) [#/Vol] 1.68 10*3/uL 0.83-4.51 [facility] Basophil percentageOrdered B y: Will Raphael on 11-22-2022 Basophils/100 WBC (Bld) 0.8 % 0-1 [facility] Bilirubin [Mass/Vol] 0.60 mg/dL 0.20-1.00 [facility] Comment on above: For patients on eltr ombopag therapy, use of Dimension [place] TBIL is not recommended. Chloride [Moles/Vol] 107 mmol/L 98-107 [facility] Eosinophils/100 WBC (Bld) 1.2 % 0-5 [facility] Glucose [Mass/Vol] 114 mg/dL 74-106 [facility] Comment on above: Fasting Glucose resu lt from 100 to 125 mg/dL suggests IMPAIRED HOMEOSTASIS per A.D.A. criteria. Neutrophils (Bld) [#/Vol] 3.6 10*3/uL 2.0-7.7 [facility] Neutrophils/100 WBC (Bld) 60.9 % 47-70 [facility] Potassium [Moles/Vol] 3.9 mmol/L 3.5-5.1 [facility] Protein [Mass/Vol] 7.1 g/dL 6.4-8.2 [facility] Sodium [Moles/Vol] 141 mmol/L 136-145 [facility] WBC (Bld) [#/Vol] 6.0 10*3/uL 4.4-11.0 [facility] Blood erythrocytes count (nu mber/volume)Ordered By: Will Lim on 11-22-2022 RBC (Bld) [#/Vol] 4.42 10*6/uL 4.2-5.4 [facility] Blood hemoglobin measurement (mass/volume)Ordered By: Will Lim on 11-22-2022 Hemoglobin (Bld) [Mass/Vol] 14.5 g/dL 12.0-15.0 [facility] Blood lymphocytes/100 leukoc ytesOrdered By: Will Lim on 11-22-2022 Lymphocytes/100 WBC (Bld) 28.2 % 19-41 [facility] Blood monocytes/100 leukocyt esOrdered By: Will Lim on 11-22-2022 Monocytes/100 WBC (Bld) 8.7 % 0-10 [facility] Blood platelet mean volumeOr dered By: Will Lim on 11-22-2022 Platelet mean volume (Bld) [Entitic vol] 9.3 fL 6.2-12.0 [facility] Determination of erythrocyte mean corpuscular volume (MCV)Ordered By: Will Lim on 11-22-2022 MCV (RBC) [Entitic vol] 96.6 fL 81-99 [facility] Hematocrit Auto (Bld) [Volum e fraction]Ordered By: Will Lim on 11-22-2022 Hematocrit (Bld) [Volume fraction] 42.7 % 37-47 [facility] - Chemistry and C hemistry - challengeOrdered By: Will Lim on 11-22-2022 ALP [Catalytic activity/Vol] 129 U/L 45-117 [facility] ALT [Catalytic activity/Vol] 53 U/L 13-56 [facility] CO2 [Moles/Vol] 29.0 mmol/L 21.0-32.0 [facility] Globulin (S) [Mass/Vol] 3.3 g/dL 2.2-4.2 [facility] Urea nitrogen/Creatinine [Mass ratio] 15.5 mg/mg 10-20 [facility] - Hematology and Cell countsOrdered By: Will Lim on 11-22-2022 Erythrocyte distribution width (RBC) [Entitic vol] 43.1 fL 35.1-43.9 [facility] Erythrocyte distribution width (RBC) [Ratio] 12.0 % 11.6-14.6 [facility] Immature granulocytes/100 WBC (Bld) 0.200 % 0.0-0.9 [facility] Comment on above: IG% - Immature Granu locytes (promyelocytes, myelocytes and metamyelocytes) > 1% indicates that a LEFT SHIFT is Present. MCH (RBC) [Entitic mass] 32.8 pg 27.0-32.0 [facility] Nucleated RBC/100 WBC (Bld) [Ratio] 0 % 0-5 [facility] MCHC Auto (RBC) [Mass/Vol]Or dered By: Will Lim on 11-22-2022 MCHC (RBC) [Mass/Vol] 34.0 g/dL 32-36 [facility] No Panel InformationOrdered By: Will Lim on 11-22-2022 Estimated GFR (MDRD) Amer 86 mL/min >60 [facility] Comment on above: GFR Calc Estimated GFR (MDRD) Non-Af Amer 71 mL/min >60 [facility] Comment on above: Non- GFR Calc Thyroid Stimulating Hormone (TSH) 0.08 uIU/mL 0.358-3.74 [facility] Vitamin D 25-Hydroxy 39.3 ng/mL [facility] Comment on above: Vitamin D 25(OH) Sta tus Range Deficiency <20 ng/mL (50nmol/L) Insufficiency 20 - 30 ng/mL (50 - 75 nmol/L) Sufficiency 30 - 100 ng/mL (75 - 250 nmol/L) Toxicity >100 ng/mL (>250 nmol/L) Platelets bldOrdered By: Will Lim on 11-22-2022 Platelets (Bld) [#/Vol] 265 10*3/uL 150-450 [facility] Serum or plasma albumin olive urement (mass/volume)Ordered By: Will Lim on 11-22-2022 Albumin [Mass/Vol] 3.8 g/dL 3.2-5.0 [facility] Serum or plasma albumin/glob ulin mass ratioOrdered By: Will Lim on 11-22-2022 Albumin/Globulin [Mass ratio] 1.2 {ratio} 0.9-2.4 [facility] Serum or plasma calcium olive urement (mass/volume)Ordered By: Will Lim on 11-22-2022 Calcium [Mass/Vol] 8.9 mg/dL 8.5-10.1 [facility] Serum or plasma creatinine m easurement (mass/volume)Ordered By: Will Lim on 11-22-2022 Creatinine [Mass/Vol] 0.84 mg/dL 0.55-1.02 [facility] Comment on above: The validity of the calculated GFR & GFRAA in patients over 70 years has not been determined. Clinical correlation is essential. Serum or plasma urea nitroge n measurement (mass/volume)Ordered By: Will Lim on 11-22-2022 Urea nitrogen [Mass/Vol] 13 mg/dL 7-18 [facility] Thin prep Papanicolaou smear with manual screeningOrdered By: Will Lim on 11-22-2022 Thin prep Papanicolaou smear with manual screening 27 U/L 15-37 [facility] Thin prep Papanicolaou smear with manual screening 5 5-15 [facility] Absolute lymphocyte countOrd ered By: Will Lim on 08-24-2022 Lymphocytes Auto (Unsp spec) [#/Vol] 2.12 10*3/uL 0.83-4.51 [facility] Basophil percentageOrdered B y: Will Lim on 08-24-2022 Basophils/100 WBC (Bld) 0.5 % 0-1 [facility] Bilirubin [Mass/Vol] 0.40 mg/dL 0.20-1.00 [facility] Comment on above: For patients on eltr ombopag therapy, use of Dimension [place] TBIL is not recommended. Chloride [Moles/Vol] 104 mmol/L 98-107 [facility] Eosinophils/100 WBC (Bld) 1.2 % 0-5 [facility] Glucose [Mass/Vol] 197 mg/dL 74-106 [facility] Comment on above: Fasting Glucose resu lt greater than or equal to 126 mg/dL suggests DIABETES MELLITUS per A.D.A. criteria. Neutrophils (Bld) [#/Vol] 4.5 10*3/uL 2.0-7.7 [facility] Neutrophils/100 WBC (Bld) 60.8 % 47-70 [facility] Potassium [Moles/Vol] 4.0 mmol/L 3.5-5.1 [facility] Protein [Mass/Vol] 7.4 g/dL 6.4-8.2 [facility] Sodium [Moles/Vol] 138 mmol/L 136-145 [facility] WBC (Bld) [#/Vol] 7.4 10*3/uL 4.4-11.0 [facility] Blood erythrocytes count (nu mber/volume)Ordered By: Will Lim on 08-24-2022 RBC (Bld) [#/Vol] 4.64 10*6/uL 4.2-5.4 [facility] Blood hemoglobin measurement (mass/volume)Ordered By: Will Lim on 08-24-2022 Hemoglobin (Bld) [Mass/Vol] 15.7 g/dL 12.0-15.0 [facility] Blood lymphocytes/100 leukoc ytesOrdered By: Will Lim on 08-24-2022 Lymphocytes/100 WBC (Bld) 28.5 % 19-41 [facility] Blood monocytes/100 leukocyt esOrdered By: Will Lim on 08-24-2022 Monocytes/100 WBC (Bld) 8.9 % 0-10 [facility] Blood platelet mean volumeOr dered By: Will Lim on 08-24-2022 Platelet mean volume (Bld) [Entitic vol] 9.0 fL 6.2-12.0 [facility] Determination of erythrocyte mean corpuscular volume (MCV)Ordered By: Will Lim on 08-24-2022 MCV (RBC) [Entitic vol] 94.8 fL 81-99 [facility] Hematocrit Auto (Bld) [Volum e fraction]Ordered By: Will Lim on 08-24-2022 Hematocrit (Bld) [Volume fraction] 44.0 % 37-47 [facility] - Chemistry and C hemistry - challengeOrdered By: Will Lim on 08-24-2022 ALP [Catalytic activity/Vol] 145 U/L 45-117 [facility] ALT [Catalytic activity/Vol] 54 U/L 13-56 [facility] CO2 [Moles/Vol] 28.0 mmol/L 21.0-32.0 [facility] Globulin (S) [Mass/Vol] 3.6 g/dL 2.2-4.2 [facility] Urea nitrogen/Creatinine [Mass ratio] 17.0 mg/mg 10-20 [facility] - Hematology and Cell countsOrdered By: Will Lim on 08-24-2022 Erythrocyte distribution width (RBC) [Entitic vol] 41.8 fL 35.1-43.9 [facility] Erythrocyte distribution width (RBC) [Ratio] 12.1 % 11.6-14.6 [facility] Immature granulocytes/100 WBC (Bld) 0.100 % 0.0-0.9 [facility] Comment on above: IG% - Immature Granu locytes (promyelocytes, myelocytes and metamyelocytes) > 1% indicates that a LEFT SHIFT is Present. MCH (RBC) [Entitic mass] 33.8 pg 27.0-32.0 [facility] Nucleated RBC/100 WBC (Bld) [Ratio] 0 % 0-5 [facility] MCHC Auto (RBC) [Mass/Vol]Or dered By: Will Lim on 08-24-2022 MCHC (RBC) [Mass/Vol] 35.7 g/dL 32-36 [facility] No Panel InformationOrdered By: Will Lim on 08-24-2022 Estimated GFR (MDRD) Amer 75 mL/min >60 [facility] Comment on above: GFR Calc Estimated GFR (MDRD) Non-Af Amer 62 mL/min >60 [facility] Comment on above: Non- GFR Calc Thyroid Stimulating Hormone (TSH) 0.43 uIU/mL 0.358-3.74 [facility] Vitamin D 25-Hydroxy 35.1 ng/mL [facility] Comment on above: Vitamin D 25(OH) Sta tus Range Deficiency <20 ng/mL (50nmol/L) Insufficiency 20 - 30 ng/mL (50 - 75 nmol/L) Sufficiency 30 - 100 ng/mL (75 - 250 nmol/L) Toxicity >100 ng/mL (>250 nmol/L) Platelets bldOrdered By: Will Lim on 08-24-2022 Platelets (Bld) [#/Vol] 253 10*3/uL 150-450 [facility] Serum or plasma albumin olive urement (mass/volume)Ordered By: Will Lim on 08-24-2022 Albumin [Mass/Vol] 3.8 g/dL 3.2-5.0 [facility] Serum or plasma albumin/glob ulin mass ratioOrdered By: Will Lim on 08-24-2022 Albumin/Globulin [Mass ratio] 1.1 {ratio} 0.9-2.4 [facility] Serum or plasma calcium olive urement (mass/volume)Ordered By: Will Lim on 08-24-2022 Calcium [Mass/Vol] 9.5 mg/dL 8.5-10.1 [facility] Serum or plasma creatinine m easurement (mass/volume)Ordered By: Will Lim on 08-24-2022 Creatinine [Mass/Vol] 0.94 mg/dL 0.55-1.02 [facility] Comment on above: The validity of the calculated GFR & GFRAA in patients over 70 years has not been determined. Clinical correlation is essential. Serum or plasma urea nitroge n measurement (mass/volume)Ordered By: Will Lim on 08-24-2022 Urea nitrogen [Mass/Vol] 16 mg/dL 7-18 [facility] Thin prep Papanicolaou smear with manual screeningOrdered By: Will Lim on 08-24-2022 Thin prep Papanicolaou smear with manual screening 28 U/L 15-37 [facility] Thin prep Papanicolaou smear with manual screening 6 5-15 [facility] Absolute lymphocyte countOrd ered By: Dr. Lim on 05-24-2022 Lymphocytes Auto (Unsp spec) [#/Vol] 2.12 10*3/uL 0.83-4.51 [facility] Basophil percentageOrdered B y: Dr. Lim on 05-24-2022 Basophils/100 WBC (Bld) 1.1 % 0-1 [facility] Bilirubin [Mass/Vol] 0.80 mg/dL 0.20-1.00 [facility] Comment on above: For patients on eltr ombopag therapy, use of Dim[place] TBIL is not recommended. Chloride [Moles/Vol] 106 mmol/L 98-107 [facility] Eosinophils/100 WBC (Bld) 1.4 % 0-5 [facility] Glucose [Mass/Vol] 139 mg/dL 74-106 [facility] Comment on above: Fasting Glucose resu lt greater than or equal to 126 mg/dL suggests DIABETES MELLITUS per A.D.A. criteria. Neutrophils (Bld) [#/Vol] 3.5 10*3/uL 2.0-7.7 [facility] Neutrophils/100 WBC (Bld) 55.1 % 47-70 [facility] Potassium [Moles/Vol] 4.1 mmol/L 3.5-5.1 [facility] Protein [Mass/Vol] 7.3 g/dL 6.4-8.2 [facility] Sodium [Moles/Vol] 139 mmol/L 136-145 [facility] WBC (Bld) [#/Vol] 6.4 10*3/uL 4.4-11.0 [facility] Blood erythrocytes count (nu mber/volume)Ordered By: Dr. Lim on 05-24-2022 RBC (Bld) [#/Vol] 4.63 10*6/uL 4.2-5.4 [facility] Blood hemoglobin measurement (mass/volume)Ordered By: Dr. Lim on 05-24-2022 Hemoglobin (Bld) [Mass/Vol] 15.4 g/dL 12.0-15.0 [facility] Blood lymphocytes/100 leukoc ytesOrdered By: Dr. Lim on 05-24-2022 Lymphocytes/100 WBC (Bld) 33.3 % 19-41 [facility] Blood monocytes/100 leukocyt esOrdered By: Dr. Lim on 05-24-2022 Monocytes/100 WBC (Bld) 8.9 % 0-10 [facility] Blood platelet mean volumeOr dered By: Dr. Lim on 05-24-2022 Platelet mean volume (Bld) [Entitic vol] 8.9 fL 6.2-12.0 [facility] Determination of erythrocyte mean corpuscular volume (MCV)Ordered By: Dr. Lim on 05-24-2022 MCV (RBC) [Entitic vol] 96.5 fL 81-99 [facility] Hematocrit Auto (Bld) [Volum e fraction]Ordered By: Dr. Lim on 05-24-2022 Hematocrit (Bld) [Volume fraction] 44.7 % 37-47 [facility] Laboratory - Chemistry and C hemistry - challengeOrdered By: Dr. Lim on 05-24-2022 ALP [Catalytic activity/Vol] 134 U/L 45-117 [facility] ALT [Catalytic activity/Vol] 54 U/L 13-56 [facility] CO2 [Moles/Vol] 30.0 mmol/L 21.0-32.0 [facility] Globulin (S) [Mass/Vol] 3.3 g/dL 2.2-4.2 [facility] Urea nitrogen/Creatinine [Mass ratio] 12.0 mg/mg 10-20 [facility] Laboratory - Hematology and Cell countsOrdered By: Dr. Lim on 05-24-2022 Erythrocyte distribution width (RBC) [Entitic vol] 42.5 fL 35.1-43.9 [facility] Erythrocyte distribution width (RBC) [Ratio] 12.0 % 11.6-14.6 [facility] Immature granulocytes/100 WBC (Bld) 0.200 % 0.0-0.9 [facility] Comment on above: IG% - Immature Granu locytes (promyelocytes, myelocytes and metamyelocytes) > 1% indicates that a LEFT SHIFT is Present. MCH (RBC) [Entitic mass] 33.3 pg 27.0-32.0 [facility] Nucleated RBC/100 WBC (Bld) [Ratio] 0 % 0-5 [facility] MCHC Auto (RBC) [Mass/Vol]Or dered By: Dr. Lim on 05-24-2022 MCHC (RBC) [Mass/Vol] 34.5 g/dL 32-36 [facility] No Panel InformationOrdered By: Dr. Lim on 05-24-2022 Estimated GFR (MDRD) Amer 70 mL/min >60 [facility] Comment on above: GFR Calc Estimated GFR (MDRD) Non-Af Amer 58 mL/min >60 [facility] Comment on above: Non- GFR Calc Thyroid Stimulating Hormone (TSH) 0.58 uIU/mL 0.358-3.74 [facility] Vitamin D 25-Hydroxy 35.0 ng/mL [facility] Comment on above: Vitamin D 25(OH) Sta tus Range Deficiency <20 ng/mL (50nmol/L) Insufficiency 20 - 30 ng/mL (50 - 75 nmol/L) Sufficiency 30 - 100 ng/mL (75 - 250 nmol/L) Toxicity >100 ng/mL (>250 nmol/L) Platelets bldOrdered By: Dr. Lim on 05-24-2022 Platelets (Bld) [#/Vol] 289 10*3/uL 150-450 [facility] Serum or plasma albumin olive urement (mass/volume)Ordered By: Dr. Lim on 05-24-2022 Albumin [Mass/Vol] 4.0 g/dL 3.2-5.0 [facility] Serum or plasma albumin/glob ulin mass ratioOrdered By: Dr. Lim on 05-24-2022 Albumin/Globulin [Mass ratio] 1.2 {ratio} 0.9-2.4 [facility] Serum or plasma calcium olive urement (mass/volume)Ordered By: Dr. Lim on 05-24-2022 Calcium [Mass/Vol] 9.3 mg/dL 8.5-10.1 [facility] Serum or plasma creatinine m easurement (mass/volume)Ordered By: Dr. Lim on 05-24-2022 Creatinine [Mass/Vol] 1.00 mg/dL 0.55-1.02 [facility] Comment on above: The validity of the calculated GFR & GFRAA in patients over 70 years has not been determined. Clinical correlation is essential. Serum or plasma urea nitroge n measurement (mass/volume)Ordered By: Dr. Lim on 05-24-2022 Urea nitrogen [Mass/Vol] 12 mg/dL 7-18 [facility] Thin prep Papanicolaou smear with manual screeningOrdered By: Dr. Lim on 05-24-2022 Thin prep Papanicolaou smear with manual screening 30 U/L 15-37 [facility] Thin prep Papanicolaou smear with manual screening 3 5-15 [facility] No Panel InformationOrdered By: Dr. Lim on 04-14-2022 Thyroid Stimulating Hormone (TSH) 5.96 uIU/mL 0.358-3.74 [facility] Absolute lymphocyte countOrd ered By: Dr. Lim on 02-17-2022 Lymphocytes Auto (Unsp spec) [#/Vol] 1.44 10*3/uL 0.83-4.51 [facility] Basophil percentageOrdered B y: Dr. Lim on 02-17-2022 Basophils/100 WBC (Bld) 0.6 % 0-1 [facility] Bilirubin [Mass/Vol] 0.50 mg/dL 0.20-1.00 [facility] Comment on above: For patients on eltr ombopag therapy, use of [employer] TBIL is not recommended. Chloride [Moles/Vol] 105 mmol/L 98-107 [facility] Eosinophils/100 WBC (Bld) 1.9 % 0-5 [facility] Glucose [Mass/Vol] 172 mg/dL 74-106 [facility] Comment on above: Fasting Glucose resu lt greater than or equal to 126 mg/dL suggests DIABETES MELLITUS per A.D.A. criteria. Neutrophils (Bld) [#/Vol] 2.7 10*3/uL 2.0-7.7 [facility] Neutrophils/100 WBC (Bld) 57.6 % 47-70 [facility] Potassium [Moles/Vol] 4.0 mmol/L 3.5-5.1 [facility] Protein [Mass/Vol] 6.6 g/dL 6.4-8.2 [facility] Sodium [Moles/Vol] 140 mmol/L 136-145 [facility] WBC (Bld) [#/Vol] 4.7 10*3/uL 4.4-11.0 [facility] Blood erythrocytes count (nu mber/volume)Ordered By: Dr. Lim on 02-17-2022 RBC (Bld) [#/Vol] 4.04 10*6/uL 4.2-5.4 [facility] Blood hemoglobin measurement (mass/volume)Ordered By: Dr. Lim on 02-17-2022 Hemoglobin (Bld) [Mass/Vol] 13.4 g/dL 12.0-15.0 [facility] Blood lymphocytes/100 leukoc ytesOrdered By: Dr. Lim on 02-17-2022 Lymphocytes/100 WBC (Bld) 30.4 % 19-41 [facility] Blood monocytes/100 leukocyt esOrdered By: Dr. Lim on 02-17-2022 Monocytes/100 WBC (Bld) 9.3 % 0-10 [facility] Blood platelet mean volumeOr dered By: Dr. Lim on 02-17-2022 Platelet mean volume (Bld) [Entitic vol] 9.7 fL 6.2-12.0 [facility] Determination of erythrocyte mean corpuscular volume (MCV)Ordered By: Dr. Lim on 02-17-2022 MCV (RBC) [Entitic vol] 98.3 fL 81-99 [facility] Hematocrit Auto (Bld) [Volum e fraction]Ordered By: Dr. Lim on 02-17-2022 Hematocrit (Bld) [Volume fraction] 39.7 % 37-47 [facility] Laboratory - Chemistry and C hemistry - challengeOrdered By: Dr. Lim on 02-17-2022 ALP [Catalytic activity/Vol] 115 U/L 45-117 [facility] ALT [Catalytic activity/Vol] 31 U/L 13-56 [facility] CO2 [Moles/Vol] 29.0 mmol/L 21.0-32.0 [facility] Globulin (S) [Mass/Vol] 3.1 g/dL 2.2-4.2 [facility] Urea nitrogen/Creatinine [Mass ratio] 15.5 mg/mg 10-20 [facility] Laboratory - Hematology and Cell countsOrdered By: Dr. Lim on 02-17-2022 Erythrocyte distribution width (RBC) [Entitic vol] 45.8 fL 35.1-43.9 [facility] Erythrocyte distribution width (RBC) [Ratio] 12.6 % 11.6-14.6 [facility] Immature granulocytes/100 WBC (Bld) 0.200 % 0.0-0.9 [facility] Comment on above: IG% - Immature Granu locytes (promyelocytes, myelocytes and metamyelocytes) > 1% indicates that a LEFT SHIFT is Present. MCH (RBC) [Entitic mass] 33.2 pg 27.0-32.0 [facility] Nucleated RBC/100 WBC (Bld) [Ratio] 0 % 0-5 [facility] MCHC Auto (RBC) [Mass/Vol]Or dered By: Dr. Lim on 02-17-2022 MCHC (RBC) [Mass/Vol] 33.8 g/dL 32-36 [facility] No Panel InformationOrdered By: Dr. Lim on 02-17-2022 Estimated GFR (MDRD) Amer 86 mL/min >60 [facility] Comment on above: GFR Calc Estimated GFR (MDRD) Non-Af Amer 71 mL/min >60 [facility] Comment on above: Non- GFR Calc Thyroid Stimulating Hormone (TSH) 6.97 uIU/mL 0.358-3.74 [facility] Vitamin D 25-Hydroxy 46.1 ng/mL [facility] Comment on above: Vitamin D 25(OH) Sta tus Range Deficiency <20 ng/mL (50nmol/L) Insufficiency 20 - 30 ng/mL (50 - 75 nmol/L) Sufficiency 30 - 100 ng/mL (75 - 250 nmol/L) Toxicity >100 ng/mL (>250 nmol/L) Platelets bldOrdered By: Dr. Lim on 02-17-2022 Platelets (Bld) [#/Vol] 231 10*3/uL 150-450 [facility] Serum or plasma albumin olive urement (mass/volume)Ordered By: Dr. Lim on 02-17-2022 Albumin [Mass/Vol] 3.5 g/dL 3.2-5.0 [facility] Serum or plasma albumin/glob ulin mass ratioOrdered By: Dr. Lim on 02-17-2022 Albumin/Globulin [Mass ratio] 1.1 {ratio} 0.9-2.4 [facility] Serum or plasma calcium olive urement (mass/volume)Ordered By: Dr. Lim on 02-17-2022 Calcium [Mass/Vol] 8.7 mg/dL 8.5-10.1 [facility] Serum or plasma creatinine m easurement (mass/volume)Ordered By: Dr. Lim on 12-21-2022 Creatinine [Mass/Vol] 0.84 mg/dL 0.55-1.02 [facility] Comment on above: The validity of the calculated GFR & GFRAA in patients over 70 years has not been determined. Clinical correlation is essential. Serum or plasma urea nitroge n measurement (mass/volume)Ordered By: Dr. Lim on 02-17-2022 Urea nitrogen [Mass/Vol] 13 mg/dL 7-18 [facility] Thin prep Papanicolaou smear with manual screeningOrdered By: Dr. Lim on 02-17-2022 Thin prep Papanicolaou smear with manual screening 21 U/L 15-37 [facility] Thin prep Papanicolaou smear with manual screening 6 5-15 [facility] Absolute lymphocyte counton 11-17-2021 Lymphocytes Auto (Unsp spec) [#/Vol] 2.11 10*3/uL 0.83-4.51 [facility] Work Phone: Basophil percentageon 2021 Basophils/100 WBC (Bld) 0.6 % 0-1 [facility] Work Phone: Bilirubin [Mass/Vol] 0.50 mg/dL 0.20-1.00 [facility] Work Phone: Comment on above: For patients on eltr ombopag therapy, use of [place] TBIL is not recommended. Chloride [Moles/Vol] 105 mmol/L 98-107 [facility] Work Phone: Eosinophils/100 WBC (Bld) 1.3 % 0-5 [facility] Work Phone: [phone] Glucose [Mass/Vol] 107 mg/dL 74-106 [facility] Work Phone: Comment on above: Fasting Glucose resu lt from 100 to 125 mg/dL suggests IMPAIRED HOMEOSTASIS per A.D.A. criteria. Neutrophils (Bld) [#/Vol] 4.9 10*3/uL 2.0-7.7 [facility] Work Phone: Neutrophils/100 WBC (Bld) 63.1 % 47-70 [facility] Work Phone: Potassium [Moles/Vol] 3.5 mmol/L 3.5-5.1 [facility] Work Phone: [phone] Protein [Mass/Vol] 7.1 g/dL 6.4-8.2 [facility] Work Phone: Sodium [Moles/Vol] 142 mmol/L 136-145 [facility] Work Phone: WBC (Bld) [#/Vol] 7.8 10*3/uL 4.4-11.0 [facility] Work Phone: Blood erythrocytes count (nu mber/volume)on 11-17-2021 RBC (Bld) [#/Vol] 4.44 10*6/uL 4.2-5.4 [facility] Work Phone: Blood hemoglobin measurement (mass/volume)on 11-17-2021 Hemoglobin (Bld) [Mass/Vol] 15.3 g/dL 12.0-15.0 [facility] Work Phone: Blood lymphocytes/100 leukoc yteson 11-17-2021 Lymphocytes/100 WBC (Bld) 27.0 % 19-41 [facility] Work Phone: Blood monocytes/100 leukocyt eson 11-17-2021 Monocytes/100 WBC (Bld) 7.9 % 0-10 [facility] Work Phone: Blood platelet mean volumeon 11-17-2021 Platelet mean volume (Bld) [Entitic vol] 8.9 fL 6.2-12.0 [facility] Work Phone: [phone] Determination of erythrocyte mean corpuscular volume (MCV)on 11-17-2021 MCV (RBC) [Entitic vol] 98.6 fL 81-99 [facility] Work Phone: Hematocrit Auto (Bld) [Volum e fraction]on 11-17-2021 Hematocrit (Bld) [Volume fraction] 43.8 % 37-47 [facility] Work Phone: Laboratory - Chemistry and C hemistry - challengeon 11-17-2021 ALP [Catalytic activity/Vol] 111 U/L 45-117 [facility] Work Phone: ALT [Catalytic activity/Vol] 22 U/L 13-56 [facility] Work Phone: CO2 [Moles/Vol] 29.0 mmol/L 21.0-32.0 [facility] Work Phone: Globulin (S) [Mass/Vol] 3.3 g/dL 2.2-4.2 [facility] Work Phone: Urea nitrogen/Creatinine [Mass ratio] 14.1 mg/mg 10-20 [facility] Work Phone: Laboratory - Hematology and Cell countson 11-17-2021 Erythrocyte distribution width (RBC) [Entitic vol] 44.5 fL 35.1-43.9 [facility] Work Phone: Erythrocyte distribution width (RBC) [Ratio] 12.2 % 11.6-14.6 [facility] Work Phone: Immature granulocytes/100 WBC (Bld) 0.100 % 0.0-0.9 [facility] Work Phone: Comment on above: IG% - Immature Granu locytes (promyelocytes, myelocytes and metamyelocytes) > 1% indicates that a LEFT SHIFT is Present. MCH (RBC) [Entitic mass] 34.5 pg 27.0-32.0 [facility] Work Phone: Nucleated RBC/100 WBC (Bld) [Ratio] 0 % 0-5 [facility] Work Phone: MCHC Auto (RBC) [Mass/Vol]on 11-17-2021 MCHC (RBC) [Mass/Vol] 34.9 g/dL 32-36 [facility] Work Phone: No Panel Informationon 11-17 Estimated GFR (MDRD) Amer 71 mL/min >60 [facility] Work Phone: Comment on above: GFR Calc Estimated GFR (MDRD) Non-Af Amer 59 mL/min >60 [facility] Work Phone: Comment on above: Non- GFR Calc Hepatitis C Antibody Non-Reactive Nonreactive [facility] Work Phone: Comment on above: Non Reactive: < 0.8 Equivocal: >/= 0.8 to < 1.0 Reactive: >/= 1.0The [facility] recommends that a reactive/equivocal HCV antibody result be followed up by the HCV Nucleic Acid Amplificationtest (366437) Thyroid Stimulating Hormone (TSH) 0.74 uIU/mL 0.358-3.74 [facility] Work Phone: Platelets bldon 11-17-2021 Platelets (Bld) [#/Vol] 247 10*3/uL 150-450 [facility] Work Phone: Serum or plasma albumin olive urement (mass/volume)on 11-17-2021 Albumin [Mass/Vol] 3.8 g/dL 3.2-5.0 [facility] Work Phone: Serum or plasma albumin/glob ulin mass ratioon 11-17-2021 Albumin/Globulin [Mass ratio] 1.2 {ratio} 0.9-2.4 [facility] Work Phone: Serum or plasma calcium olive urement (mass/volume)on 11-17-2021 Calcium [Mass/Vol] 9.2 mg/dL 8.5-10.1 [facility] Work Phone: Serum or plasma creatinine m easurement (mass/volume)on 11-17-2021 Creatinine [Mass/Vol] 0.99 mg/dL 0.55-1.02 [facility] Work Phone: Comment on above: The validity of the calculated GFR & GFRAA in patients over 70 years has not been determined. Clinical correlation is essential. Serum or plasma urea nitroge n measurement (mass/volume)on 11-17-2021 Urea nitrogen [Mass/Vol] 14 mg/dL 7-18 [facility] Work Phone: Thin prep Papanicolaou smear with manual screeningon 11-17-2021 Thin prep Papanicolaou smear with manual screening 20 U/L 15-37 [facility] Work Phone: Thin prep Papanicolaou smear with manual screening 8 5-15 [facility] Work Phone: [phone] Vital Signs Date Time Vital Sign Value Performing Clinician Alexx marshall 10-24-2024 13:22-0400 Body height 167.[address] Will Lim MD Work Phone: [facility] 10-22-2024 18:55-0400 Body temperature 97.5 [degF] Dr. Will Lim MD Work Phone: [facility] 10-22-2024 18:55-0400 Diastolic blood pressure 76 mm[Hg] Dr. Will Lim MD Work Phone: [facility] 10-22-2024 18:55-0400 Heart rate 99 /min Dr. Will Lim MD Work Phone: [facility] 10-22-2024 18:55-0400 Respiratory rate 15 /min Dr. Will Lim MD Work Phone: [facility] 10-22-2024 18:55-0400 SaO2% (BldA) [Mass fraction] 98 % Dr. Will Lim MD Work Phone: [facility] 10-22-2024 18:55-0400 Systolic blood pressure 114 mm[Hg] Dr. Will Lim MD Work Phone: [facility] 10-22-2024 15:50-0400 Body height 167.[address] Will Lim MD Work Phone: [facility] 05-23-2024 14:23-0400 Body weight [address] LUPE GONZALEZ MD [facility] 04-27-2024 11:24-0500 Body temperature 97 [degF] Dr. Will Lim MD Work Phone: [facility] 04-27-2024 11:24-0500 Diastolic blood pressure 55 mm[Hg] Dr. Will Lim MD Work Phone: [facility] 04-27-2024 11:24-0500 Heart rate 76 /min Dr. Will Lim MD Work Phone: [facility] 04-27-2024 11:24-0500 Respiratory rate 14 /min Dr. Will Lim MD Work Phone: [facility] 04-27-2024 11:24-0500 SaO2% (BldA) [Mass fraction] 98 % Dr. Will Lim MD Work Phone: [facility] 04-27-2024 11:24-0500 Systolic blood pressure 126 mm[Hg] Dr. Will Lim MD Work Phone: [facility] 04-27-2024 09:06-0500 Body height 167.[address] Will Lim MD Work Phone: [facility] 04-27-2024 09:06-0500 Body mass index (BMI) [Ratio] 28.4 kg/m2 Dr. Will Lim MD Work Phone: [facility] 04-27-2024 09:06-0500 Body weight 79.[address] Will Lim MD Work Phone: [facility] 02-10-2024 10:14-0500 Body temperature 98.24 [degF] AGUSTINA WILBURN MD FAC [facility] 02-10-2024 10:14-0500 Diastolic Blood Pressure Non-Invasive 60 mm[Hg] AGUSTINA WILBURN MD FACP [facility] 02-10-2024 10:14-0500 Heart rate 95 /min AGUSTINA WILBURN MD FACP [facility] 02-10-2024 10:14-0500 Reason For Taking VItal Signs AGUSTINA WILUBRN MD FACP [facility] 02-10-2024 10:14-0500 Respiratory rate 16 /min AGUSTINA WILBURN MD FACP [facility] 02-10-2024 10:14-0500 Systolic Blood Pressure Non-Invasive 125 mm[Hg] AGUSTINA WILBURN MD FACP [facility] 02-10-2024 06:45-0500 Body temperature 98.06 [degF] AGUSTINA WILBURN MD FACP [facility] 02-10-2024 06:45-0500 Diastolic Blood Pressure Non-Invasive 58 mm[Hg] AGUSTINA WILBURN MD FACP [facility] 02-10-2024 06:45-0500 Heart rate 69 /min AGUSTINA WILBURN MD FACP [facility] 02-10-2024 06:45-0500 Reason For Taking VItal Signs AGUSTINA WILBURN MD FACP [facility] 02-10-2024 06:45-0500 Respiratory rate 16 /min AGUSTINA WILBURN MD FACP [facility] 02-10-2024 06:45-0500 Systolic Blood Pressure Non-Invasive 108 mm[Hg] AGUSTINA WILBURN MD FACP [facility] 02-09-2024 19:41-0500 Body temperature 98.42 [degF] AGUSTINA WILBURN MD FACP [facility] 02-09-2024 19:41-0500 Diastolic Blood Pressure Non-Invasive 55 mm[Hg] AGUSTINA WILBURN MD FACP [facility] 02-09-2024 19:41-0500 Heart rate 65 /min AGUSTINA WILBURN MD FACP [facility] 02-09-2024 19:41-0500 Reason For Taking VItal Signs AGUSTINA WILBURN MD FACP [facility] 02-09-2024 19:41-0500 Respiratory rate 16 /min AGUSTINA WILBURN MD FACP [facility] 02-09-2024 19:41-0500 Systolic Blood Pressure Non-Invasive 121 mm[Hg] AGUSTINA WILBURN MD FACP [facility] 02-09-2024 07:22-0500 Heart rate 58 /min AGUSTINA WILBURN MD FACP [facility] 02-08-2024 19:25-0500 Heart rate 72 /min AGUSTINA WILBURN MD FACP [facility] 02-07-2024 19:43-0500 Heart rate 64 /min AGUSTINA WILBURN MD FACP [facility] 02-06-2024 19:51-0500 Heart rate 64 /min AGUSTINA WILBURN MD FACP [facility] 02-03-2024 17:38-0500 Body height 167.6 cm AGUSTINA WILBURN MD FACP [facility] 02-03-2024 17:38-0500 Body weight 80.8 kg AGUSTINA WILBURN MD FACP [facility] 02-03-2024 17:38-0500 Body weight 28.76 kg/m2 AGUSTINA WILBURN MD FACP [facility] 02-03-2024 09:56-0500 Body temperature 98.42 [degF] ROSEMARIE TINEO MD [facility] 02-03-2024 09:56-0500 Diastolic Blood Pressure Non-Invasive 61 mm[Hg] ROSEMARIE TINEO MD [address] [place] [address] 02-03-2024 09:56-0500 Heart rate 66 /min ROSEMARIE TINEO MD [address] [place] [address] 02-03-2024 09:56-0500 Reason For Taking VItal Signs ROSEMARIE TINEO MD [address] [place] [address] 02-03-2024 09:56-0500 Respiratory rate 18 /min ROSEMARIE TINEO MD [address] [place] [address] 02-03-2024 09:56-0500 Systolic Blood Pressure Non-Invasive 149 mm[Hg] ROSEMARIE TINEO MD [address] [place] [address] 02-03-2024 06:48-0500 Blood Pressure Cuff Size ROSEMARIE TINEO MD [address] [place] [address] 02-03-2024 06:48-0500 Blood Pressure Location ROSEMARIE TINEO MD [address] [place] [address] 02-03-2024 06:48-0500 Blood Pressure Method ROSEMARIE TINEO MD [address] [place] [address] 02-03-2024 06:48-0500 Body temperature 98.06 [degF] ROSEMARIE TINEO MD [address] [place] [address] 02-03-2024 06:48-0500 Diastolic Blood Pressure Non-Invasive 61 mm[Hg] ROSEMARIE TINEO MD [address] [place] [address] 02-03-2024 06:48-0500 Heart rate 55 /min ROSEMARIE TINEO MD [address] [place] [address] 02-03-2024 06:48-0500 Reason For Taking VItal Signs ROSEMARIE TINEO MD [address] [place] [address] 02-03-2024 06:48-0500 Respiratory rate 18 /min ROSEMARIE TINEO MD [address] [place] [address] 02-03-2024 06:48-0500 Systolic Blood Pressure Non-Invasive 110 mm[Hg] ROSEMARIE TINEO MD [address] [place] [address] 02-03-2024 04:17-0500 Body temperature 97.7 [degF] ROSEMARIE TINEO MD [address] [place] [address] 02-03-2024 04:17-0500 Diastolic Blood Pressure Non-Invasive 69 mm[Hg] ROSEMARIE TINEO MD [address] [place] [address] 02-03-2024 04:17-0500 Heart rate 57 /min ROSEMARIE TINEO MD [address] [place] [address] 02-03-2024 04:17-0500 Reason For Taking VItal Signs ROSEMARIE TINEO MD [address] [place] [address] 02-03-2024 04:17-0500 Respiratory rate 18 /min ROSEMARIE TINEO MD [address] [place] [address] 02-03-2024 04:17-0500 Systolic Blood Pressure Non-Invasive 127 mm[Hg] ROSEMARIE TINEO MD [address] [place] [address] 02-03-2024 00:44-0500 Blood Pressure Cuff Size ROSEMARIE TINEO MD [address] [place] [address] 02-03-2024 00:44-0500 Blood Pressure Location ROSEMARIE TINEO MD [address] [place] [address] 02-03-2024 00:44-0500 Blood Pressure Method ROSEMARIE TINEO MD [address] [place] [address] 02-01-2024 03:23-0500 Heart rate 86 /min ROSEMARIE TINEO MD [address] [place] [address] 01-31-2024 22:31-0500 Heart rate 64 /min ROSEMARIE TINEO MD [address] [place] [address] 01-31-2024 19:47-0500 Mean blood pressure 81 mm[Hg] ROSEMARIE TINEO MD [address] [place] [address] 01-31-2024 15:10-0500 Heart rate 62 /min ROSEMARIE TINEO MD [address] [place] [address] 01-31-2024 13:36-0500 Mean blood pressure 78 mm[Hg] ROSEMARIE TINEO MD [address] [place] [address] 01-31-2024 13:29-0500 Heart rate 61 /min ROSEMARIE TINEO MD [address] [place] [address] 01-31-2024 13:29-0500 Mean blood pressure 85 mm[Hg] ROSEMARIE TINEO MD [address] [place] [address] 01-31-2024 11:42-0500 Heart rate 65 /min ROSEMARIE TINEO MD [address] [place] [address] 01-31-2024 07:20-0500 Diastolic blood pressure 47 mm[Hg] ROSEMARIE TINEO MD [address] [place] [address] 01-31-2024 07:20-0500 Mean blood pressure 69 mm[Hg] ROSEMARIE TINEO MD [address] [place] [address] 01-31-2024 07:20-0500 Systolic blood pressure 124 mm[Hg] ROSEMARIE TINEO MD [address] [place] [address] 01-31-2024 05:54-0500 Diastolic blood pressure 56 mm[Hg] ROSEMARIE TINEO MD [address] [place] [address] 01-31-2024 05:54-0500 Mean blood pressure 77 mm[Hg] ROSEMARIE TINEO MD [address] [place] [address] 01-31-2024 05:54-0500 Systolic blood pressure 114 mm[Hg] ROSEMARIE TINEO MD [address] [place] [address] 01-31-2024 03:37-0500 Diastolic blood pressure 59 mm[Hg] ROSEMARIE TINEO MD [address] [place] [address] 01-31-2024 03:37-0500 Mean blood pressure 81 mm[Hg] ROSEMARIE TINEO MD [address] [place] [address] 01-31-2024 03:37-0500 Systolic blood pressure 133 mm[Hg] ROSEMARIE TINEO MD [address] [place] [address] 01-30-2024 15:30-0500 Body height 167.6 cm ROSEMARIE TINEO MD [address] [place] [address] 01-30-2024 15:30-0500 Body weight 81.2 kg ROSEMARIE TINEO MD [address] [place] [address] 01-30-2024 15:30-0500 Body weight 28.91 kg/m2 ROSEMARIE TINEO MD [address] [place] [address] 01-30-2024 14:45-0500 Respiratory Rate - Anes 0 br/min ROSEMARIE TINEO MD [address] [place] [address] 01-30-2024 14:40-0500 Respiratory Rate - Anes 0 br/min ROSEMARIE TINEO MD [address] [place] [address] 01-30-2024 14:25-0500 Respiratory Rate - Anes 0 br/min ROSEMARIE TINEO MD [address] [place] [address] 01-30-2024 13:50-0500 Body temperature 70.03 [degF] ROSEMARIE TINEO MD [address] [place] [address] 01-30-2024 13:45-0500 Body temperature 99.64 [degF] ROSEMARIE TINEO MD [facility] 01-30-2024 13:40-0500 Body temperature 99.52 [degF] ROSEMARIE TINEO MD [facility] 01-30-2024 11:23-0500 SaO2% (BldA) [Mass fraction] 99.3 % ROSEMARIE TINEO MD [facility] 01-30-2024 08:58-0500 SaO2% (BldA) [Mass fraction] 99.6 % ROSEMARIE TINEO MD [facility] 01-30-2024 02:37-0500 Heart rate 58 /min ROSEMARIE TINEO MD [facility] 01-25-2024 08:47-0500 Body temperature 97.1 [degF] Dr. Will Lim MD Work Phone: [facility] 01-25-2024 08:47-0500 Diastolic blood pressure 75 mm[Hg] Dr. Will Lim MD Work Phone: [facility] 01-25-2024 08:47-0500 Heart rate 79 /min Dr. Will Lim MD Work Phone: [facility] 01-25-2024 08:47-0500 Respiratory rate 17 /min Dr. Will Lim MD Work Phone: [facility] 01-25-2024 08:47-0500 SaO2% (BldA) [Mass fraction] 93 % Dr. Will Lim MD Work Phone: [facility] 01-25-2024 08:47-0500 Systolic blood pressure 159 mm[Hg] Dr. Will Lim MD Work Phone: [facility] 01-25-2024 03:41-0500 Body mass index (BMI) [Ratio] 30.4 kg/m2 Dr. Will Lim MD Work Phone: [facility] 01-25-2024 03:41-0500 Body weight 85.[address] Will Lim MD Work Phone: [facility] 02-08-2023 13:13-0500 Body height 167.[address] Will Lim Work Phone: [facility] 02-08-2023 13:13-0500 Body mass index (BMI) [Ratio] 30.4 kg/m2 Dr. Will Lim Work Phone: [facility] 02-08-2023 13:13-0500 Body weight 85.[address] Will Lim Work Phone: [facility] 02-01-2023 13:18-0500 Heart rate 82 /min [facility] 02-01-2023 13:18-0500 Respiratory rate 16 /min [facility] 02-01-2023 12:14-0500 Body height 167.64 cm [facility] 02-01-2023 12:14-0500 Body mass index (BMI) [Ratio] 30.2 kg/m2 [facility] 02-01-2023 12:14-0500 Body temperature 97.2 [degF] [facility] 02-01-2023 12:14-0500 Body weight 85 kg [facility] 02-01-2023 12:14-0500 Diastolic blood pressure 77 mm[Hg] [facility] 02-01-2023 12:14-0500 SaO2% (BldA) [Mass fraction] 100 % [facility] 02-01-2023 12:14-0500 Systolic blood pressure 157 mm[Hg] [facility] 04-30-2022 11:50-0500 Diastolic blood pressure 80 mm[Hg] [facility] 04-30-2022 11:50-0500 Heart rate 69 /min [facility] 04-30-2022 11:50-0500 Respiratory rate 17 /min [facility] 04-30-2022 11:50-0500 SaO2% (BldA) [Mass fraction] 96 % [facility] 04-30-2022 11:50-0500 Systolic blood pressure 158 mm[Hg] [facility] 04-30-2022 11:10-0500 Body height 167.64 cm [facility] 04-30-2022 11:10-0500 Body mass index (BMI) [Ratio] 29.9 kg/m2 [facility] 04-30-2022 11:10-0500 Body temperature 97.5 [degF] [facility] 04-30-2022 11:10-0500 Body weight 84.05 kg [facility] Encounters Encounter Date Encounter Type Care Provider Facility Start: 11-20-2024 ambulatory AZ ENNIS DO Faci lity:A Start: 11-20-2024 End: 11-20-2024 ambulatory AZ ENNIS DO Facility:A Start: 11-20-2024 End: 11-20-[address] LUPE GONZALEZ MD [facility] Start: 11-06-2024 End: 11-06-2024 ambulatory AZ ENNIS DO Facility:A Start: 11-06-2024 End: 11-06-[address] LUPE GONZALEZ MD [facility] Start: 11-02-2024 End: 11-02-[address] Tyrone Isabel MD -[facility] Start: 11-02-2024 End: 11-02-[address] Will Lim MD Work Phone: -[facility] Start: 10-30-2024 End: 10-30-2024 ambulatory AZ ENNIS DO Facility:A Start: 10-30-2024 End: 10-30-[address] [facility] Start: 10-26-2024 End: 10-26-[address] Turner Zavala DO -[facility] Work Phone: Start: 10-26-2024 End: 10-26-[address] Will Lim MD Work Phone: -[facility] Start: 10-22-2024 End: 10-22-2024 Emergency department patient visit Dr. Will Lim MD Work Phone: -Emergency Department Work Phone: Start: 10-17-2024 End: 11-01-2024 ambulatory AZ ENNIS DO Facility:A Start: 10-17-2024 End: 11-01-2024 Radiation Therapy CLINTON GILBERT MD [facility] Start: 10-12-2024 End: 10-12-[address] SAY LIM MD Facility:[facility] Start: 10-12-2024 End: 10-12-2024 Patient encounter procedure CLINTON GILBERT MD [facility] Start: 10-11-2024 End: 10-11-2024 ambulatory AZ ENNIS DO Facility:A Start: 10-11-2024 End: 10-11-[address] LUPE GONZALEZ MD [facility] Start: 10-08-2024 End: 10-08-[address] SAY LIM MD Facility:[facility] Start: 10-08-2024 End: 10-08-[address] LUPE GONZALEZ MD [facility] Start: 09-05-2024 End: 09-05-[address] SAY LIM MD Facility:A Start: 09-05-2024 End: 09-05-[address] LUPE GONZALEZ MD [facility] Start: 09-03-2024 End: 09-03-[address] SAY LIM MD Facility:[facility] Start: 09-03-2024 End: 09-03-[address] LUPE GONZALEZ MD [facility] Start: 08-24-2024 End: 08-24-[address] Will Lim MD Work Phone: -[facility] Start: 08-24-2024 End: 08-24-[address] Az Ennis MD -[facility] Work Phone: Start: 08-24-2024 End: 08-24-2024 ambulatory Az SHAFER Facility:[facility] Start: 08-15-2024 End: 08-15-[address] SAY LIM MD Facility:A Start: 08-15-2024 End: 08-15-[address] LUPE GONZALEZ MD [facility] Start: 07-18-2024 End: 07-18-[address] SAY LIM MD Facility:A Start: 07-18-2024 End: 07-18-[address] LUPE GONZALEZ MD [facility] Start: 07-12-2024 ambulatory Will Lim Facility:[facility] Start: 07-06-2024 End: 07-06-2024 Subsequent hospital visit by physician [facility] Comment on above: Malignant neoplasm o f brain, unspecified Start: 07-06-2024 End: 07-06-2024 ambulatory [facility] Start: 06-20-2024 End: 06-20-[address] SAY LIM MD Facility:A Start: 06-20-2024 End: 06-20-[address] LUPE GONZALEZ MD [facility] Start: 05-29-2024 End: 05-29-[address] Will Lim MD Work Phone: [facility] Work Phone: Start: 05-29-2024 End: 05-29-[address] Will Lim MD -Laboratory Work Phone: Start: 05-29-2024 End: 05-29-2024 ambulatory Will Lim Facility:[facility] Start: 05-23-2024 End: 05-23-[address] SAY LIM MD Facility: Start: 05-23-2024 End: 05-23-[address] LUPE GONZALEZ MD [facility] Start: 05-14-2024 End: 05-14-[address] SAY LIM MD Facility:[facility] Start: 04-27-2024 End: 04-27-[address] Will Lim MD -Medical Out Work Phone: Start: 04-27-2024 End: 04-27-2024 ambulatory Will Lim Facility:[facility] Start: 04-26-2024 End: 04-26-[address] Will Lim MD Work Phone: [facility] Work Phone: Start: 04-26-2024 End: 04-26-[address] Will Lim MD -Cat Scan, [facility] Work Phone: Start: 04-26-2024 End: 04-26-2024 ambulatory Will Lim Facility:[facility] Start: 04-19-2024 End: 04-19-[address] Will Lim MD -Laboratory Work Phone: Start: 04-19-2024 End: 04-19-2024 ambulatory Will Lim Facility:[facility] Start: 04-16-2024 ambulatory Will Chi Raphael Facility:[facility] Start: 04-16-[address] Michaela Jaramillo MD -[facility] Start: 04-05-2024 End: 04-05-[address] SAY LIM MD Facility:A Start: 04-05-2024 End: 04-05-[address] LUPE GONZALEZ MD [facility] [employer] [facility] Start: 04-02-2024 ambulatory Will Chi Raphael Facility:[facility] Start: 04-02-[address] Michaela Jaramillo MD -[facility] Start: 03-22-2024 End: 03-22-[address] SAY LIM MD Facility:A Start: 03-22-2024 End: 03-22-2024 Patient encounter procedure [facility] Start: 03-14-2024 ambulatory Will Chi Raphael Facility:[facility] Start: 03-14-[address] Michaela Jaramillo MD -[facility] Start: 03-06-2024 End: 03-06-[address] SAY LIM MD Facility:[facility] Start: 03-06-2024 End: 03-06-2024 Patient encounter procedure CLINTON GILBERT MD [facility] Start: 03-05-2024 ambulatory Will Chi Raphael Facility:[facility] Start: 03-05-[address] Michaela Jaramillo MD -[facility] Start: 03-02-2024 End: 03-02-[address] SYA LIM MD Facility:A Start: 03-02-2024 End: 03-02-[address] LUPE GONZALEZ MD [facility] Start: 02-27-2024 ambulatory Will Chi Raphael Facility:[facility] Start: 02-27-[address] Michaela Jaramillo MD -[facility] Start: 02-20-2024 ambulatory Will Chi Raphael Facility:[facility] Start: 02-20-[address] Michaela Jaramillo MD -[facility] Start: 02-16-[address] SAY LIM MD Faci lity:A Start: 02-15-2024 ambulatory Will Chi Raphael Facility:[facility] Start: 02-15-[address] Michaela Jaramillo MD -[facility] Start: 02-13-2024 ambulatory Will Chi Raphael Facility:[facility] Start: 02-13-[address] Michaela Jaramillo MD -[facility] Start: 02-03-2024 End: 02-10-2024 Evaluation and management of inpatient AGUSTINA WILBURN MD FACP [facility] Start: 01-25-2024 End: 02-03-2024 Evaluation and management of inpatient ROSEMARIE TINEO MD [facility] Start: 01-25-2024 End: 01-25-2024 Emergency department patient visit Dr. Charles Rico MD -Emergency Department Work Phone: Start: 01-12-2024 End: 01-12-2024 ambulatory Will Chi Raphael Facility:[facility] Start: 01-12-2024 End: 01-12-[address] Will Lim MD -Physical Therapy Work Phone: Start: 01-10-2024 End: 01-10-2024 ambulatory Will Chi Raphael Facility:[facility] Start: 01-03-2024 End: 01-03-2024 ambulatory Will Chi Raphael Facility:[facility] Start: 01-02-2024 End: 01-02-2024 ambulatory Will Chi Raphael Facility:[facility] Start: 12-30-2023 End: 12-30-2023 ambulatory Will Bryan Raphael Facility:[facility] Start: 12-29-2023 End: 12-29-2023 ambulatory Will Chi Raphael Facility:[facility] Start: 12-27-2023 End: 12-27-2023 ambulatory Will Bryan Raphael Facility:[facility] Start: 12-01-2023 End: 12-01-2023 ambulatory Will Lim Facility:[facility] Start: 06-29-2023 End: 06-29-[address] Will Lim Work Phone: [facility] Work Phone: Start: 06-29-2023 End: 06-29-[address] Will Lim Work Phone: [facility]-Physical Therapy Work Phone: Start: 06-21-2023 End: 06-21-[address] Will Lim Work Phone: [facility] Work Phone: Start: 05-26-2023 End: 05-26-[address] Will Lim Work Phone: [facility] Work Phone: Start: 05-26-2023 End: 05-26-[address] Will Lim Work Phone: [facility]-Laboratory, Phy Office 3rd Flr Start: 05-19-2023 End: 05-19-[address] Will Lim Work Phone: [facility] Work Phone: Start: 05-19-2023 End: 05-19-[address] Will Lim Work Phone: [facility]-Radiology, [facility] Work Phone: Start: 05-10-2023 End: 05-10-[address] Will Lim Work Phone: [facility] Work Phone: Start: 05-10-2023 End: 05-10-[address] Will Lim Work Phone: [facility]-Pulmonary Services/Neurology Work Phone: Start: 05-09-2023 End: 05-09-[address] Will Lim Work Phone: [facility] Work Phone: Start: 05-09-2023 End: 05-09-[address] Will Lim Work Phone: [facility]-Physical Therapy Work Phone: Start: 04-04-2023 End: 04-04-[address] Will Lim Work Phone: [facility] Work Phone: Start: 03-28-2023 End: 03-28-[address] Will Lim Work Phone: [facility] Work Phone: Start: 03-28-2023 End: 03-28-[address] Will Lim Work Phone: [facility] Work Phone: Start: 03-22-2023 End: 03-22-[address] Will Lim Work Phone: [facility] Work Phone: Start: 03-16-2023 End: 03-16-[address] Will Lim Work Phone: [facility] Work Phone: Start: 03-07-2023 End: 03-07-[address] Will Lim Work Phone: [facility] Work Phone: Start: 03-07-2023 End: 03-07-[address] Will Lim Work Phone: [facility]-MRI - [facility] Work Phone: Start: 02-15-2023 End: 02-15-[address] Will Lim Work Phone: [facility] Work Phone: Start: 02-08-2023 End: 02-08-[address] Will Lim Work Phone: [facility] Work Phone: Start: 02-01-2023 End: 02-01-2023 Emergency department patient visit [facility]-Emergency Department Work Phone: Start: 01-13-2023 End: 01-13-2023 ambulatory [facility] Work Phone: Start: 01-13-2023 End: 01-13-2023 Patient encounter procedure [facility]-Laboratory Work Phone: Start: 11-24-2022 End: 11-24-2022 ambulatory [facility] Work Phone: Start: 11-24-2022 End: 11-24-2022 Patient encounter procedure [facility]-Outpatient Breast Imaging Work Phone: Start: 11-22-2022 End: 11-22-2022 Patient encounter procedure [facility]-Laboratory, Phy Office 3rd Flr Start: 08-24-2022 End: 08-24-2022 ambulatory [facility] Work Phone: Start: 08-24-2022 End: 08-24-2022 Patient encounter procedure [facility]-Laboratory Work Phone: Start: 05-24-2022 End: 05-24-2022 ambulatory [facility] Work Phone: Start: 05-24-2022 End: 05-24-2022 Patient encounter procedure [facility]-Laboratory Start: 04-30-2022 End: 04-30-2022 Emergency department patient visit [facility]-Emergency Department Start: 04-22-2022 End: 04-22-2022 Patient encounter procedure [facility]-Laboratory, Specimen Start: 04-14-2022 End: 04-14-2022 ambulatory [facility] Work Phone: Start: 04-14-2022 End: 04-14-2022 Patient encounter procedure [facility]-Laboratory, Phy Office 3rd Flr Start: 03-03-2022 End: 03-03-2022 ambulatory [facility] Work Phone: Start: 03-03-2022 End: 03-03-2022 Patient encounter procedure [facility]-Outpatient Bone Densitometry Start: 02-17-2022 End: 02-17-2022 ambulatory [facility] Work Phone: Start: 02-17-2022 End: 02-17-2022 Patient encounter procedure [facility]-Laboratory, Phy Office 3rd Flr Start: 11-17-2021 End: 11-17-2021 [facility] Procedures Date Procedure Procedure Detail Performing Clinician Start: 10-22-2024 Plain x-ray of elbow Dr Marsha Lim MD Work Phone: Start: 10-22-2024 Plain x-ray of hand Dr. Will Lim MD Work Phone: Start: 08-24-2024 Vitamin D, 25-hydrox y measurement Dr. Will Lim MD Work Phone: Comment on above: Vitamin D StatusDefi ciency: <20 ng/mL (50nmol/L)Insufficiency: 20-30 ng/mL (50-75 nmol/L)Sufficiency: 30-100 ng/mL (75-250 nmol/L)Toxicity: >100 ng/mL (>250 nmol/L) Start: 06-13-2024 Tooth uatsdin - plastic (physical object) DR LUPE GONZALEZ [...] Phone: Start: 03-07-2023 MRI of cervical spine D cara Lim Work Phone: Start: 02-15-2023 X-ray of [...] or Population) (1 - 1-dose 75+ series) [facility] Start: 11-02-2024 Plain x-ray of hand Hand Min 3 Views [facility] Start: 11-02-2024 XR Hand GE 3 Views [facility] Start: 10-22-2024 [facility] Start: 10-22-2024 Application finger splint static APPLICATION OF FINGER SPLINT [facility] Start: 04-27-2024 Iv infusion hydratio n each additional hour HYDRATE IV INFUSION ADD-ON [facility] Start: 04-27-2024 Iv infusion hydratio n initial 31 min-1 hour HYDRATION IV INFUSION INIT [facility] Start: 01-25-2024 [facility] Start: 10-30-2023 COVID-19 Vaccine ( season) COVID-19 Vaccine ( season) [facility] Start: 04-04-2023 Patient referral [facility] Work Phone: Start: 03-22-2023 Patient referral [facility] Work Phone: Start: 02-15-2023 Patient referral [facility] Work Phone: Start: 02-01-2023 [facility] Start: 2000 Pneumococcal vaccination Pneumococcal Vaccine (1 of - PCV) [facility] Start: 1990 Screening for malign ant neoplasm of breast Mammogram [facility] Start: 1972 DTaP/Tdap/Td Vaccine s (1 - Tdap) DTaP/Tdap/Td Vaccines (1 - Tdap) [facility] Start: 1968 Hepatitis C screening Hepatitis C Sc reening [facility] Start: 1950 Annual wellness visit Welcome to Medicare Visit [facility] Start: 1950 Lipid panel Lipid Panel [facility] Start: 1950 Screening for malign ant neoplasm of colon [facility] Start: 1950 Screening for osteoporosis Bone Density Scan [facility] End: 07-06-2024 MR Brain for new diagnosis tumor WO and W contrast IV [facility] Service Area Work Phone: Comment on above: Once for 1 Occurrenc es starting 07/06/2024 until 07/06/2024 End: 07-06-2024 MR spectroscopy Brain [facility] Service Area Work Phone: Comment on above: Once for 1 Occurrenc es starting 07/06/2024 until 07/06/2024 Patient Education [facility] Work Phone: Patient referral [facility] Work Phone: Immunizations Immunization Date Immunization Notes Care Provider Fa cility 12-01-2023 influenza virus vaccine, unspecified formulation ROSEMARIE TINEO MD [facility] 11-15-2023 pneumococcal 20-adrián nt conjugate vaccine ROSEMARIE TINEO MD [facility] 11-15-2023 SARS-CoV-2 (COVID-19 ) [facility]-[id number] ROSEMARIE TINEO MD [facility] 11-15-2023 zoster vaccine recombinant ROSEMARIE TINEO MD [facility] 01-11-2023 RSV vaccine, preF A-preF B, recombinant ROSEMARIE TINEO MD [facility] 01-11-2023 SARS-CoV-2 (COVID-19 ) mRNA-[id number] ROSEMARIE TINEO MD [facility] 11-25-2022 zoster vaccine recombinant ROSEMARIE TINEO MD [facility] 11-22-2022 influenza virus vaccine, unspecified formulation ROSEMARIE TINEO MD [facility] Payers Date Payer Category Payer Private Health Insurance [id number] 2024 Medicare supplementa l policy (as second payer) [employer] [id number] 2024 Medicare [id number] 2024 Medicare [id number] 2024 Private Health Insurance [id number] 2023 Medicare [id number] 2023 Private Health Insurance [id number] 2023 Self-pay 2004 Unknown [id number] 1950 Unknown [id number]. 2.1245 1950 Unknown [id number] [id number]. 2.1244 1950 Unknown [id number] [id number]. 2.627 1950 Unknown [id number] [id number]. 2.62 1950 Unknown [id number] [id number]. 2. 1950 Unknown [id number] 2.16.840.1.548569.3.579. 2. 1950 Unknown [id number] [id number]. 2. 1950 Unknown [id number] [id number]. 2. 1950 Unknown [id number] [id number]. 2. 1950 Unknown [id number] [id number]. 2. 1950 Unknown [id number] [id number]. 2. 1950 Unknown [id number] 2.16.840.1.114207.3.579. 2. 1950 Unknown [id number] 2.16.840.1.530988.3.579. 2. 1950 Unknown [id number] 2.16.840.1.559821.3.579. 2. 1950 Unknown [id number] 2.16.840.1.555841.3.579. 2. 1950 Unknown [id number] 2.16.840.1.372733.3.579. 2.627 1950 Unknown [id number] 2.16.840.1.126240.3.579. 2.62 1950 Unknown [id number] 2.16.840.1.726819.3.579. 2.62 1950 Unknown [id number] 2.16.840.1.207168.3.579. 2.62 1950 Unknown [id number] 2.16.840.1.060237.3.579. 2.62 1950 Unknown [id number] 2.840.1.829963.3.579. 2. 1950 Unknown [id number] 2.840.1.291026.3.579. 2. 1950 Unknown [id number] 2.840.1.117466.3.579. 2. 1950 Unknown [id number] 2.840.1.419646.3.579. 2.62 1950 Unknown [id number] 2.840.1.255262.3.579. 2.627 Unknown [id number] 2.16840.1.046051.3.579. 2.462 Unknown [id number] 2.840.1.769010.3.579. 2.462 Unknown [id number] 2.16840.1.538151.3.579. 2.462 Unknown [id number] 2.16.840.1.587030.3.579. 2.462 Unknown [id number] 2.16.840.1.789833.3.579. 2.462 Unknown [id number] 2.16.840.1.320910.3.579. 2.462 Unknown [id number] 2.16.840.1.254048.3.579. 2.462 Unknown [id number] 2.16.840.1.258625.3.579. 2.462 Unknown [id number] 2.16.840.1.760224.3.579. 2.462 Unknown [id number] 2.16.840.1.845880.3.579. 2.462 Unknown [id number] 2.16.840.1.604140.3.579. 2.462 Unknown [id number] 2.16.840.1.515652.3.579. 2.462 Unknown [id number] 2.16.840.1.142993.3.579. 2.462 Unknown [id number] 2.16.840.1.806846.3.579. 2.462 Unknown [id number] 2.16.840.1.020507.3.579. 2.462 Unknown [id number] 2.16.840.1.591887.3.579. 2.462 Unknown [id number] 2.16.840.1.894755.3.579. 2.462 Unknown [id number] 2.16.840.1.338654.3.579. 2.462 Unknown [id number] 2.16.840.1.028035.3.579. 2.462 Unknown [id number] 2.16.840.1.715989.3.579. 2.462 Unknown [id number] 2.16.840.1.332152.3.579. 2.462 Social History Date Type Detail Facility Start: 11-17-2021 End: 04-04-2023 Tobacco smoking status SDIS Unknown if ever smoked [facility] Start: 1950 Sex Assigned At Female [facility] Start: 01-20-2024 End: 10-24-2024 Tobacco smoking status Never smoked tobacco (finding) [facility] Sexual Orientation [facility] [employer] Start: 05-10-2024 End: 06-04-2024 Sex Female (finding) [facility] Start: 1950 Sex assigned at Not on file [facility] Work Phone: Gender identity Not on file [facility] Work Phone: Start: 06-26-2024 End: 07-06-2024 Exposure to SARS-CoV-2 (event) Not sure [facility] Procedure Code Equipment Code Equipment [...] Facility 02-10-2024 Functional Status Room check performed [facility] 02-10-2024 Functional Status [facility] 02-10-2024 Functional Status [facility] 02-10-2024 Functional Status [facility] 02-10-2024 Functional Status [facility] 02-09-2024 Functional Status Repositions self [facility] 02-09-2024 Functional Status [facility] 02-09-2024 Functional Status [facility] 02-09-2024 Functional Status Supervised [facility] 02-09-2024 Functional Status Min A 1 [facility] 02-09-2024 Functional Status Supervised [facility] Functional Status [facility] Vallada[facility] [place] 02-08-2024 Functional Status [facility] Vallada[facility] [place] 02-08-2024 Functional Status [facility] Vallada[facility] [place] 02-08-2024 Functional Status [facility] [place] 02-07-2024 [facility] 02-07-2024 Functional Status OT Toilet Transfers [facility] 02-07-2024 Functional Status [facility] 02[facility]06-2024 Functional Status [facility] 02-06-2024 Functional Status Kimberlyn Nixon [facility] 02-05-2024 Functional Status Lunch Percent 100 [facility] 02-05-2024 Functional Status Done Kimberlyn Nixon [facility] 02-04-2024 Functional Status [facility] Nixon [facility] 02-04-2024 Functional Status Single level home [facility] 02-04-2024 Functional Status pt reporting t hat her and her spouse had built a new home in 2021 that is completely handicap accessible [facility] 02-04-2024 Functional Status Kimberlyn pascual [facility] 02-03-2024 Functional Status 100 Kimberlyn Nixon [facility] 02-03-2024 Functional Status Identified as high risk, Fall ID band on, Room located near nursing station, Bed alert on, Door open [facility] 02-03-2024 Functional Status [facility] 02-03-2024 Functional Status [facility] 02-03-2024 Functional Status Stefan [facility] 02-03-2024 Functional Status [facility] 02-03-2024 Functional Status [facility] 02-03-2024 Functional Status [facility] 02-02-2024 Functional Status One assist [facility] 02-02-2024 Functional Status Done [facility] 02-02-2024 Functional Status [facility] 02-02-2024 Functional Status [facility] 02-01-2024 Functional Status [facility] 02-01-2024 Functional Status bilateral knee high removed/off [facility] 02-01-2024 Functional Status Min A [facility] 02-01-2024 Functional Status [facility] 02-01-2024 Functional Status [facility] 01-31-2024 Functional Status heel(s)s elevated [facility] 01-31-2024 Functional Status [facility] 01-31-2024 Functional Status Min [facility] 01-31-2024 Functional Status Morning Snack Percent 1 00 [facility] 01-30-2024 Functional Status [facility] 01-30-2024 Functional Status Maintained [facility] 01-30-2024 Functional Status [facility] 01-29-2024 Functional Status [facility] 01-29-2024 Functional Status [facility] 01-29-2024 Functional Status [facility] 01-29-2024 Functional Status [facility] 01-28-2024 Functional Status [facility] 01-28-2024 Functional Status [facility] 01-28-2024 Functional Status [facility] 01-27-2024 Functional Status [facility] 01-27-2024 Functional Status [facility] 01-27-2024 Functional Status 0 [facility] 01-27-2024 Functional Status [facility] 01-26-2024 Functional Status [facility] 01-26-2024 Functional Status [facility] 01-25-2024 Functional Status Dinner Percent 100 [facility] 01-25-2024 Functional Status Single level home [facility] Mental Status Date Assessment Result Facility 04-27-2024 Cognitive function Voice/Name [facility] Work Phone: 02-10-2024 Mental Status Oriented x 4 [facility] 02-09-[address] [facility] 02-09-2024 [facility] 02-09-2024 Mental Status [facility] 02-03-2024 Mental Status Orientation Oriented x 4 [facility] 02-03-2024 Mental Status [facility] 02-02-2024 Mental Status [facility] 02-01-2024 Mental Status [facility] Clinical Notes 05-09-2023 to 11-20-2024 Note Date & Type Note Facility 11-20-2024 Summary of episod e note TERENCE VALDIVIA :1950 Visit Date:11/20/2024 Your Visit Summary Your Diagnosis Primary malignant glioma of parietal lobe Tests Performed .Auto Differential .Estimated Glomerular Filtration Rate .Neutro Absolute CBC CMP [facility]DH Your Care Team Attending Physician - LUPE GONZALEZ MD Primary Care Physician - [place] ENNIS DO Vitals Temperature (Oral) 97.9 F (36.6 C) Heart Rate 66 Blood Pressure 136/71 Height 65.98 in (167.6 cm) Weight 174.64 lb (79.2 kg) BMI 28.2 What to do next Instructions From Your Doctor You have received the following therapy today: Immunotherapy Call your physician if any of the following problems occur: Nausea/Vomiting Mouth Sores Diarrhea Fever Prolonged bleeding or easy bruising Pain or discomfort at the injection site Scheduled Follow-Up Appointments Appointment Type When With Where Contact Information StatusINF/OSP Labwork 12/04/2024 12:45 PM EDT Infusion Therapy Confirmed INF Chemo: Infusion 180 min (3 hours) 12/04/2024 01:00 PM EDT Infusion Therapy Confirmed INF/OSP Labwork 12/18/2024 12:45 PM EDT Infusion Therapy Confirmed HEM ONC OV Follow Up w/PRIYANK Active Treatm 12/18/2024 01:30 PM EDT JENNIFER 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 [facility] Confirmed INF Chemo: Infusion 180 min (3 hours) 12/18/2024 02:00 PM EDT Infusion Therapy Confirmed Medications What How Much When Instructions Unchanged acetaminophen (Tylenol 325 mg oral capsule) 650 Milligram by mouth Every 4 hours as needed for Pain, scale 1-3 Unchanged escitalopram 10 Milligram by mouth Once a day Unchanged levETIRAcetam (levETIRAcetam 500 mg oral tablet) 1 tab(s) by mouth Every 12 hours Unchanged levothyroxine (levothyroxine 112 mcg (0.112 mg) oral tablet) 1 tab(s) by mouth Once a day before a meal Unchanged losartan (losartan 100 mg oral tablet) 1 tab(s) by mouth Every day Unchanged multivitamin (Multivitamin) 1 tab(s) by mouth Every day Unchanged multivitamin with iron (Geritol oral tablet) 1 tab(s) by mouth Two (2) times a day Unchanged multivitamin with minerals (Centrum Women's oral tablet) 1 tab(s) by mouth Once a day Unchanged multivitamin with minerals (PreserVision AREDS) 1 cap by mouth Two (2) times a day Unchanged ondansetron (ondansetron 4 mg oral tablet) 1 tab(s) by mouth Every 6 hours Unchanged potassium chloride (Potassium Chloride (Qgq-Qdcv-Bcy M20) 20 mEq oral tablet, extended release) 1 tab(s) by mouth Two (2) times a day Unchanged solifenacin (solifenacin 10 mg oral tablet) 1 tab(s) by mouth Once a day Test Results Protein Urine Dipstick - Negative (11/20/2024) .Auto Differential (11/20/2024) Neutrophil % - 66.0 % Lymphocyte % - 19.5 % Monocyte % - 10.4 % Eosinophil % - 3.2 % Basophil % - 0.9 % Lymphocyte, Absolute - 1.0 10^3/mcL Monocyte, Absolute - 0.5 10^3/mcL Eosinophil, Absolute - 0.2 10^3/mcL Basophil, Absolute - 0.0 10^3/mcL .Estimated Glomerular Filtration Rate (11/20/2024) Estimated Glomerular Filtration Rate - 88 ml/min/1.73sqm .Neutro Absolute (11/20/2024) Neutrophil, Absolute - 3.3 10^3/mcL CBC (11/20/2024) WBC - 4.9 10^3/mcL RBC - 4.48 10^6/mcL Hgb - 15.0 G/dL Hct - 43.1 % MCV - 96.1 fL MCH - 33.4 pg MCHC - 34.8 G/dL RDW - 13.6 % Platelet - 162 10^3/mcL MPV - 6.9 fL CMP (11/20/2024) Glucose Level - 103 mg/dL Sodium Level - 143 mEq/L Potassium Level - 4.3 mEq/L Chloride - 105 mEq/L CO2 - 28 mEq/L Electrolyte Balance - 10.0 mEq/L BUN - 9.0 mg/dL Creatinine Lvl (s) - 0.72 mg/dL BUN/Creatinine Ratio - 12.5 ratio Calcium Lvl - 9.8 mg/dL Total Protein - 6.6 G/dL Albumin Level - 3.8 G/dL Globulin - 2.8 G/dL A/G Ratio - 1.4 ratio Bili Total - 0.90 mg/dL Alk Phos - 121 U/L AST/SGOT - 19 U/L ALT/SGPT - 20 U/L LDH (11/20/2024) LDH - 178 U/L Allergies Bee Stings Unknown Latex Unknown codeine Unknown tetanus immune globulin Unknown Additional Information VACCINATE! IT SAVES LIVES! Members of the community who have not yet received the COVID-19 vaccine and would like to receive it can visit one of [facility] vaccine clinics. There are many vaccine clinic locations within the [facility]. For locations and available times, please visit [email or web address] It is important to note that some COVID mobile vaccine clinics are held outdoors and may be canceled in rainy or stormy conditions. To learn more about pediatric vaccinations (ages 5-11), we invite you to visit the [facility] webpage. [email or web address]/pages/[email or web address] 783-Oiqap-Dyvsdzyuntl-Frequently-Asked -Questions.html To learn more about the COVID-19 vaccine, we invite you to visit the CDC website for a list of frequently asked questions. https://www.cdc.gov/coronavirus/2019-n cov/vaccines/faq.html [place] [employer] Patient Portal Access Instructions: Stay connected with your healthcare team and access your personal medical information anytime with the [facility] Patient Portal.If you would like a full copy of your medical records, please contact the [facility] Medical Records Department, Tuesday through Tuesday between 8a.m. and 4:30p.m. Please follow the directions below to access the portal: 1.Access the email account you provided upon registration to the hospital.2.Look for an invitation email from [facility].3.Open the email and access the invitation link: Accept Invitation to [facility].Fill in the required delgado to create your account. To access your account, visit Right Skills/[place] [place] or scan the [email or web address] code above. Click the blue button labeled Access Patient Portal and then log in with the username and password that you created in the steps above. You can then view a summary of results, a summary of your visits, and the ability to download your summaries to your computer or send the information securely to a physician. Remember that your healthcare information is confidential, so carefully consider who you will allow to register on the [facility] Patient Portal for access to your information. You can also access the [facility] Patient Portal on the Inktd priyank. Simply click on Health Records under Health Data and then click on the [place] logo. HOW TO SAFELY DISPOSE OF PRESCRIPTION MEDICATIONS Please use one of the following methods to safely dispose of your unused medications. 1.Use a drug disposal kit: the drug disposal pouch allows you to safely discard your old and unused drugs. Ask your nurse to give you one when you are discharged.2.Visit a local take-back location: Many local pharmacies and police departments have programs that collect old and unwanted prescription drugs. Call your local pharmacy or go to http://bit.StyleFactory/0E2Us7m to find one close to you.3.Make use of household items: Use cat litter or old coffee grounds to dispose medications if other options are not available. Mix your drugs with these household products, seal them in an airtight container and throw it into the garbage. Call [facility]: [phone] to be sure your drugs can be [...] a CHART COPY. Signatures Patient Education Materials Medication Leaflets My discharge plan and instructions have been reviewed and explained to me and I,TERENCE VALDIVIA understand my current condition and have read and understand these discharge instructions. I have received a written copy of the plan/instructions. If I have questions, I am aware that I should contact my doctor. 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 Your Care Team Attending Physician - LUPE GONZALEZ MD Primary Care Physician - [place] ENNIS DO Vitals Temperature (Oral) 97.9 F (36.6 C) Heart Rate 73 Respiratory Rate 18 Blood Pressure 113/55 Height 65.98 in (167.6 cm) Weight 172.43 lb (78.2 kg) BMI 27.84 What to do next Instructions From Your Doctor You have received the following therapy today: Chemotherapy/Immunotherapy Call your physician if any of the following problems occur: Nausea/Vomiting Mouth Sores Diarrhea Fever Prolonged bleeding or easy bruising Pain or discomfort at the injection site Scheduled Follow-Up Appointments Appointment Type When With Where Contact Information StatusINF/OSP Labwork 11/20/2024 12:30 PM EDT Infusion Therapy Confirmed HEM ONC OV Follow Up w/ Active Treatme 11/20/2024 01:15 PM EDT LUPE GONZALEZ MD [facility] Confirmed INF Chemo: Infusion 180 min (3 hours) 11/20/2024 01:45 PM EDT Infusion Therapy Confirmed Medications What How Much When Instructions Unchanged acetaminophen (Tylenol 325 mg oral capsule) 650 Milligram by mouth Every 4 hours as needed for Pain, scale 1-3 Unchanged escitalopram 10 Milligram by mouth Once a day Unchanged levETIRAcetam (levETIRAcetam 500 mg oral tablet) 1 tab(s) by mouth Every 12 hours Unchanged levothyroxine (levothyroxine 112 mcg (0.112 mg) oral tablet) 1 tab(s) by mouth Once a day before a meal Unchanged losartan (losartan 100 mg oral tablet) 1 tab(s) by mouth Every day Unchanged multivitamin (Multivitamin) 1 tab(s) by mouth Every day Unchanged multivitamin with minerals (Centrum Women's oral tablet) 1 tab(s) by mouth Once a day Unchanged multivitamin with minerals (PreserVision AREDS) 1 cap by mouth Two (2) times a day Unchanged ondansetron (ondansetron 4 mg oral tablet) 1 tab(s) by mouth Every 6 hours Unchanged potassium chloride (Potassium Chloride (Sri-Qqts-Qqe M20) 20 mEq oral tablet, extended release) 1 tab(s) by mouth Two (2) times a day Unchanged solifenacin (solifenacin 10 mg oral tablet) 1 tab(s) by mouth Once a day Unchanged temozolomide (temozolomide 140 mg oral capsule) 1 cap by mouth Daily at bedtime take during RT with 5mg cap Unchanged temozolomide (temozolomide 5 mg oral capsule) 1 cap by mouth Daily at bedtime Test Results Protein Urine Dipstick - Negative (11/06/2024) .Auto Differential (11/06/2024) Neutrophil % - 72.5 % Lymphocyte % - 13.6 % Monocyte % - 10.2 % Eosinophil % - 3.0 % Basophil % - 0.7 % Lymphocyte, Absolute - 0.6 10^3/mcL Monocyte, Absolute - 0.5 10^3/mcL Eosinophil, Absolute - 0.1 10^3/mcL Basophil, Absolute - 0.0 10^3/mcL .Estimated Glomerular Filtration Rate (11/06/2024) Estimated Glomerular Filtration Rate - 80 ml/min/1.73sqm .Neutro Absolute (11/06/2024) Neutrophil, Absolute - 3.4 10^3/mcL CBC (11/06/2024) WBC - 4.7 10^3/mcL RBC - 4.50 10^6/mcL Hgb - 15.1 G/dL Hct - 43.6 % MCV - 97.0 fL MCH - 33.5 pg MCHC - 34.6 G/dL RDW - 13.2 % Platelet - 234 10^3/mcL MPV - 6.9 fL CMP (11/06/2024) Glucose Level - 128 mg/dL Sodium Level - 143 mEq/L Potassium Level - 4.5 mEq/L Chloride - 104 mEq/L CO2 - 27 mEq/L Electrolyte Balance - 12.0 mEq/L BUN - 8.0 mg/dL Creatinine Lvl (s) - 0.78 mg/dL BUN/Creatinine Ratio - 10.3 ratio Calcium Lvl - 10.0 mg/dL Total Protein - 6.8 G/dL Albumin Level - 4.0 G/dL Globulin - 2.8 G/dL A/G Ratio - 1.4 ratio Bili Total - 1.00 mg/dL Alk Phos - 123 U/L AST/SGOT - 29 U/L ALT/SGPT - 24 U/L LDH (11/06/2024) LDH - 269 U/L Allergies Bee Stings Unknown Latex Unknown codeine Unknown tetanus immune globulin Unknown Additional Information VACCINATE! IT SAVES LIVES! Members of the community who have not yet received the COVID-19 vaccine and would like to receive it can visit one of [facility] vaccine clinics. There are many vaccine clinic locations within the [facility]. For locations and available times, please visit [email or web address] It is important to note that some COVID mobile vaccine clinics are held outdoors and may be canceled in rainy or stormy conditions. To learn more about pediatric vaccinations (ages 5-11), we invite you to visit the [facility] webpage. [email or web address]/pages/2 480-Zwewy-Tweabakhmna-Frequently-Asked -Questions.html To learn more about the COVID-19 vaccine, we invite you to visit the CDC website for a list of frequently asked questions. https://www.cdc.gov/coronavirus/2019-n cov/vaccines/faq.html [facility] Patient Portal Access Instructions: Stay connected with your healthcare team and access your personal medical information anytime with the [facility] Patient Portal.If you would like a full copy of your medical records, please contact the [facility] Medical Records Department, Tuesday through Tuesday between 8a.m. and 4:30p.m. Please follow the directions below to access the portal: 1.Access the email account you provided upon registration to the hospital.2.Look for an invitation email from [facility].3.Open the email and access the invitation link: Accept Invitation to [facility].Fill in the required delgado to create your account. Sign into www.Right Skills with your username and password that you created in the above steps to stay up to date. You can then view a summary of results, a summary of your visits, and the ability to download your summaries to your computer or send the information securely to a physician. Remember that your healthcare information is confidential, so carefully consider who you will allow to register on the [facility] Patient Portal for access to your information. You can also access the [facility] Patient Portal on the Sitesimon. Simply click on Health Records under Health Data and then click on the [employer] logo. HOW TO SAFELY DISPOSE OF PRESCRIPTION MEDICATIONS Please use one of the following methods to safely dispose of your unused medications. 1.Use a drug disposal kit: the drug disposal pouch allows you to safely discard your old and unused drugs. Ask your nurse to give you one when you are discharged.2.Visit a local take-back location: Many local pharmacies and police departments have programs that collect old and unwanted prescription drugs. Call your local pharmacy or go to http://SearchForce.StyleFactory/5A7Vx0d to find one close to you.3.Make use of household items: Use cat litter or old coffee grounds to dispose medications if other options are not available. Mix your drugs with these household products, seal them in an airtight container and throw it into the garbage. Call [facility]: [phone] to be sure your drugs can be [...] a CHART COPY. Signatures Patient Education Materials Medication Leaflets My discharge plan and instructions have been reviewed and explained to me and ISKIP GAIL understand my current condition and have read and understand these discharge instructions. I have received a written copy of the plan/instructions. If I have questions, I am aware that I should contact my doctor. 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 Az Ennis, DO Status:REG ER Location: ED HPI HPI - Fall History of Present Illness Chief Complaint: Fall Narrative Narrative: Patient is a 73-year-old female presenting to the emergency department for a fall with left hand pain. Patient has a past medical history of a brain tumor and states that she always has issues with her left side particularly her leg giving out. States that she went to transfer from her bed to her wheelchair when she lost her balance due to her left leg giving out, falling onto her left hand. She denies hitting her head or any other injuries. Denies neck or back pain. She is not on OAC. [facility] Medical History Brain tumor Tendinosis of right shoulder Primary osteoarthritis, right shoulder Right shoulder tendonitis Type 2 diabetes mellitus Home Medications ?Medication ?Instructions ?Recorded ?Last Taken ?Type levothyroxine 137 mcg tablet 137 mcg PO DAILY 03/03/23 Unknown History losartan 50 mg tablet 50 mg PO DAILY 04/30/22 Unkn own History multivitamin 1 tab PO DAILY 04/30/22 Unkn own History Held on 04/27/24. Instructions: not taking solifenacin 10 mg tablet 10 mg PO DAILY 04/30/22 Unkn own History venlafaxine 75 mg capsule,extended 75 mg PO DAILY 05/20 Unknown History release 24 hr vitamins A,C,T-srvj-xiayak 2,148 2 tab PO DAILY Unknown History mcg-113 mg-45 mg-17.4 mg tablet (PreserVision AREDS) bupropion HCl 200 mg tablet,12 hr 200 mg PO DAILY 05/30 05/21 Unknown History sustained-release Allergy/AdvReac Type Severity Reaction Status Date / Time bee venom protein (honey Allergy Swelling Verified 10/22/24 15:50 bee) (bee stings) codeine Allergy Nausea Verified 10/22/24 15:50 Tetanus Vaccines and Toxoid Allergy Swelling Verified 10/22/24 15:50 Family History Father CHF (congestive heart failure) Surgical History History of knee surgery Social History housing: house Smoking Status: Never smoker ROS ROS ED ROS Narrative see HPI EXAM Physical Exam Narrative Exam Narrative: Vital signs: Reviewed General: Alert and orientedx3. No acute distress HEENT: Head is normocephalic and atraumatic, sinuses nontender, pupils equal round and reactive. Nares are patent. Oropharynx and throat exams normal. Neck: Supple without lymphadenopathy nontender. No midline cervical spinal tenderness palpation. Nostep-offs or deformities. Cardiovascular: Regular rate and rhythm, no murmurs. No rubs or gallops. Normal S1 and S2 Respiratory: Clear to auscultation bilaterally. No wheezes, rales, rhonchi Abdominal: Soft and nontender. Normal bowel sounds. No guarding or rebound. Nonsurgical abdomen Extremities: There is tenderness to palpation at the base of the left fifth finger with ecchymosis and mild swelling. There is no tenderness to palpation of the metacarpals, forearm, elbow, humerus or shoulder. Sensation and motor intact in radial, median and ulnar distributions. Compartments are soft. Radial pulse intact bilaterally. There is a superficial abrasion to the proximal forearm below the elbow. Skin: No rash or redness. Neurological: Cranial nerves II through XII are grossly intact. Normal strengthand sensation. Normal cerebellar function The rest of the physical exam is unremarkable Const Vital Signs: 10/22/24 15:50 10/22/24 16:49 Temperature 97.5 F L Temperature Source Temporal Pulse Rate 99 Respiratory Rate 15 Respiratory Effort Normal Non-Labored Blood Pressure 114/76 Blood Pressure Mean 88 Pulse Ox 98 Oxygen Delivery Method Room Air Room Air MDM MDM MDM Narrative Medical decision making narrative: Patient is a 73-year-old female presenting to the emergency department after a mechanical fall. Patient was seen and examined. Resting in bed comfortably in no acute distress. Imaging was ordered prior to my evaluation of the patient which included a hand and elbow x-ray of the left side. X-ray wasreviewed by myself and shows a fracture of the fifth proximal phalanx. Radiology read with an acute nondisplaced oblique fracture of the fifth proximal phalanx metadiaphysis. Elbow x-ray with no acute osseous abnormalities. Patient remembers the fall and it was purely mechanical, no indication for additional imaging or labs. She did not hit her head, no OAC, no neck or back pain, neuro intact on exam. Neurovascularly intact. Placed in an ulnar gutter splint. Given orthopedic follow-up for 1 week. Placed in a sling for comfort. Encouraged take Tylenol or Motrin for pain control and ice at home. Patient discharged from the Emergency Department. I do not feel that the patient's evaluation reveals any acute reason for admission at this time. I instructed them to either follow-up with their primary care physician or promptly return tothe Emergency Department for reevaluation should symptoms worsen or new symptomsdevelop. I explained what symptoms would indicate the need to return to the emergency department. Shared decision making was used. The patient voiced understanding of the treatment plan and is agreeable with it. Clinical impression Fifth proximal phalanx fracture Fall History & Record Review Discussion w/independent historian: Patient and Family Radiography Diagnostic Testing: Clinical Impression(s) from Imaging Studies Elbow X-Ray 10/22/24 16:10 IMPRESSION: No acute osseous abnormalities. Reading Location: [facility] Hand X-Ray 10/22/24 16:10 IMPRESSION: Acute, nondisplaced oblique fracture of the 5th proximal phalanx metadiaphysis. Reading Location: [facility] Discharge Plan Triage Chief Complaint: Fall ED Provider: Wang Bee Dx/Rx/DC Orders Clinical Impression: Proximal phalanx fracture of finger, Fall Instructions: ED Fracture, Finger, Closed, ED Fall Prevention Prescriptions: No Action bupropion HCl 200 mg tablet sustained-release 12 hr 200 mg PO DAILY multivitamin Tablet 1 tab PO DAILY losartan 50 mg tablet 50 mg PO DAILY levothyroxine 137 mcg Tablet 137 mcg PO DAILY venlafaxine 75 mg Capsule,Extended Release 24hr 75 mg PO DAILY solifenacin 10 mg Tablet 10 mg PO DAILY PreserVision AREDS 2,148 mcg-113 mg-45 mg-17.4mg tablet 2 tab PO DAILY Patient Comments: twice a day Primary Care Provider: Az Ennis Referrals: Turner Zavala DO [Med Staff - Active Staff] - 1 Week Az Ennis DO [Primary Care Provider] - Activity Restrictions/Additional Instructions: Follow-up with the orthopedic doctor below in 1 week. Please keep the splint dry. Take tylenol and motrin at home for pain control and ice the hand. Your evaluation in the Emergency Department did not reveal any acute reason for admission. However, I want to emphasize that you may be early in the course of adisease process or illness even if it is not present. For this reason you shouldfollow-up within 24 hours for reevaluation with either your primary care physician or if necessary back here in the Emergency Department. You should return to the Emergency Department immediately if your symptoms worsen or new symptoms develop. Print Language: Chadian Disposition Disposition: Home, Self Care What to do if you have Problems For any increased pain, shortness of breath, bleeding, nausea or vomiting, chestpain, or any unexpected problems, contact your Primary Care Provider. Call [facility] ([phone]) or report tothe closest Emergency Room. Call 911 if necessary. 10/22/24 9438 Cosigner Signature (if applicable): CC: Dr. Az Ennis, DO ~ Signed [facility]08-25-2025 Radiology Diagnostic study note [facility] Imaging Services [address], [place] [id number] Hand Min 3 Views MR#: [id number] Acct: [id number] Name: TERENCE VALDIVIA Rep #: [id number] : 1950 F 73 From: Cristóbal Casas MD PCP: Dr. Will Lim MD Status: PRE E R Study:Hand Min 3 Views Date of Exam: Exam# [id number] Ordering Dr: Chapin ,Ed P. PROCEDURE: HAND MIN 3 VIEWS 10/22/2024 REASON FOR EXAM: FALL TECHNIQUE: HAND MIN 3 VIEWS FINDINGS: Acute, nondisplaced oblique fracture of the 5th proximal phalanx metadiaphysis. Degenerative changes of the hand and wrist. RAD/Hand Min 3 Views IMPRESSION: Acute, nondisplaced oblique fracture of the 5th proximal phalanx metadiaphysis. Reading Location: [facility] CC: Dr. Will Lim MD; ED PHYSICIAN PROVIDER ~ Recreation Therapy Aides Teacher: Signed [facility]08-25-2025 Radiology Diagnostic study note [facility] Imaging Services [address], [place] [id number] Elbow min 3 Views MR#: [id number] Acct: [id number] Name: TERENCE VALDIVIA Rep #: [id number] : 1950 F 73 From: Cristóbal Casas MD PCP: Dr. Will Lim MD Status: PRE E R Study:Elbow min 3 Views Date of Exam: Exam# [id number] Ordering Dr: Chapin ,Ed P. PROCEDURE: ELBOW MIN 3 VIEWS 10/22/2024 REASON FOR EXAM: FALL TECHNIQUE: ELBOW MIN 3 VIEWS Laterality: FINDINGS: No evidence of acute fracture or dislocation. Degenerative changes of the elbow. No elbow joint effusion. RAD/Elbow min 3 Views IMPRESSION: No acute osseous abnormalities. Reading Location: [id number] CC: Dr. Will Lim MD; ED PHYSICIAN PROVIDER ~ Recreation Therapy Aides Teacher: Signed [facility]08-25-2025 Discharge summary Author Wang Bee [facility] Note Date/Time October 22, 2024 6: 51pm [facility] Medical Records Department [address] [place] [address] Emergency Department Summary 10/22/24 MR#: [id number] Acct: [id number] Name: TERENCE VALDIVIA Rep #:[id number] : 1950 73 From: aWng Bee MD PCP: Dr. Az Ennis, DO Status:REG ER Location: ED HPI HPI - Fall History of Present Illness Chief Complaint: Fall Narrative Narrative: Patient is a 73-year-old female presenting to the emergency department for a fall with left hand pain. Patient has a past medical history of a brain tumor and states that she always has issues with her left side particularly her leg giving out. States that she went to transfer from her bed to her wheelchair when she lost her balance due to her left leg giving out, falling onto her left hand. She denies hitting her head or any other injuries. Denies neck or back pain. She is not on OAC. [facility] Medical History Brain tumor Tendinosis of right shoulder Primary osteoarthritis, right shoulder Right shoulder tendonitis Type 2 diabetes mellitus Home Medications ?Medication ?Instructions ?Recorded ?Last Taken ?Type levothyroxine 137 mcg tablet 137 mcg PO DAILY 04/30/22 Unknown History losartan 50 mg tablet 50 mg PO DAILY 04/30/22 Unkn own History multivitamin 1 tab PO DAILY 04/30/22 Unkn own History Held on 04/27/24. Instructions: not taking solifenacin 10 mg tablet 10 mg PO DAILY 04/30/22 Unkn own History venlafaxine 75 mg capsule,extended 75 mg PO DAILY 05/20 Unknown History release 24 hr vitamins A,C,G-iudo-iiqjbn 2,148 2 tab PO DAILY Unknown History mcg-113 mg-45 mg-17.4 mg tablet (PreserVision AREDS) bupropion HCl 200 mg tablet,12 hr 200 mg PO DAILY 05/30 05/21 Unknown History sustained-release Allergy/AdvReac Type Severity Reaction Status Date / Time bee venom protein (honey Allergy Swelling Verified 10/22/24 15:50 bee) (bee stings) codeine Allergy Nausea Verified 10/22/24 15:50 Tetanus Vaccines and Toxoid Allergy Swelling Verified 10/22/24 15:50 Family History Father CHF (congestive heart failure) Surgical History History of knee surgery Social History housing: house Smoking Status: Never smoker ROS ROS ED ROS Narrative see HPI EXAM Physical Exam Narrative Exam Narrative: Vital signs: Reviewed General: Alert and orientedx3. No acute distress HEENT: Head is normocephalic and atraumatic, sinuses nontender, pupils equal round and reactive. Nares are patent. Oropharynx and throat exams normal. Neck: Supple without lymphadenopathy nontender. No midline cervical spinal tenderness palpation. No step-offs or deformities. Cardiovascular: Regular rate and rhythm, no murmurs. No rubs or gallops. Normal S1 and S2 Respiratory: Clear to auscultation bilaterally. No wheezes, rales, rhonchi Abdominal: Soft and nontender. Normal bowel sounds. No guarding or rebound. Nonsurgical abdomen Extremities: There is tenderness to palpation at the base of the left fifth finger with ecchymosis and mild swelling. There is no tenderness to palpation of the metacarpals, forearm, elbow, humerus or shoulder. Sensation and motor intact in radial, median and ulnar distributions. Compartments are soft. Radial pulse intact bilaterally. There is a superficial abrasion to the proximal forearm below the elbow. Skin: No rash or redness. Neurological: Cranial nerves II through XII are grossly intact. Normal strengthand sensation. Normal cerebellar function The rest of the physical exam is unremarkable Const Vital Signs: 10/22/24 15:50 10/22/24 16:49 Temperature 97.5 F L Temperature Source Temporal Pulse Rate 99 Respiratory Rate 15 Respiratory Effort Normal Non-Labored Blood Pressure 114/76 Blood Pressure Mean 88 Pulse Ox 98 Oxygen Delivery Method Room Air Room Air MDM MDM MDM Narrative Medical decision making narrative: Patient is a 73-year-old female presenting to the emergency department after a mechanical fall. Patient was seen and examined. Resting in bed comfortably in no acute distress. Imaging was ordered prior to my evaluation of the patient which included a hand and elbow x-ray of the left side. X-ray was reviewed by myself and shows a fracture of the fifth proximal phalanx. Radiology read with an acute nondisplaced oblique fracture of the fifth proximal phalanx metadiaphysis. Elbow x-ray with no acute osseous abnormalities. Patient remembers the fall and it was purely mechanical, no indication for additional imaging or labs. She did not hit her head, no OAC, no neck or back pain, neuro intact on exam. Neurovascularly intact. Placed in an ulnar gutter splint. Given orthopedic follow-up for 1 week. Placed in a sling for comfort. Encouraged take Tylenol or Motrin for pain control and ice at home. Patient discharged from the Emergency Department. I do not feel that the patient's evaluation reveals any acute reason for admission at this time. I instructed them to either follow-up with their primary care physician or promptly return tothe Emergency Department for reevaluation should symptoms worsen or new symptomsdevelop. I explained what symptoms would indicate the need to return to the emergency department. Shared decision making was used. The patient voiced understanding of the treatment plan and is agreeable with it. Clinical impression Fifth proximal phalanx fracture Fall History & Record Review Discussion w/independent historian: Patient and Family Radiography Diagnostic Testing: Clinical Impression(s) from Imaging Studies Elbow X-Ray 10/22/24 16:10 IMPRESSION: No acute osseous abnormalities. Reading Location: [facility] Hand X-Ray 10/22/24 16:10 IMPRESSION: Acute, nondisplaced oblique fracture of the 5th proximal phalanx metadiaphysis. Reading Location: [facility] Discharge Plan Triage Chief Complaint: Fall ED Provider: Wang Bee Dx/Rx/DC Orders Clinical Impression: Proximal phalanx fracture of finger, Fall Instructions: ED Fracture, Finger, Closed, ED Fall Prevention Prescriptions: No Action bupropion HCl 200 mg tablet sustained-release 12 hr 200 mg PO DAILY multivitamin Tablet 1 tab PO DAILY losartan 50 mg tablet 50 mg PO DAILY levothyroxine 137 mcg Tablet 137 mcg PO DAILY venlafaxine 75 mg Capsule,Extended Release 24hr 75 mg PO DAILY solifenacin 10 mg Tablet 10 mg PO DAILY PreserVision AREDS 2,148 mcg-113 mg-45 mg-17.4mg tablet 2 tab PO DAILY Patient Comments: twice a day Primary Care Provider: Az Ennis Referrals: Turner Zavala DO [Med Staff - Active Staff] - 1 Week Az Ennis DO [Primary Care Provider] - Activity Restrictions/Additional Instructions: Follow-up with the orthopedic doctor below in 1 week. Please keep the splint dry. Take tylenol and motrin at home for pain control and ice the hand. Your evaluation in the Emergency Department did not reveal any acute reason for admission. However, I want to emphasize that you may be early in the course of adisease process or illness even if it is not present. For this reason you shouldfollow-up within 24 hours for reevaluation with either your primary care physician or if necessary back here in the Emergency Department. You should return to the Emergency Department immediately if your symptoms worsen or new symptoms develop. Print Language: Chadian Disposition Disposition: Home, Self Care What to do if you have Problems For any increased pain, shortness of breath, bleeding, nausea or vomiting, chestpain, or any unexpected problems, contact your Primary Care Provider. Call [facility] ([phone]) or report to the closest Emergency Room. Call 911 if necessary. 10/22/24 185 <Electronically signed by Wang Bee MD> Cosigner Signature (if applicable): CC: Dr. Az Ennis DO ~ Signed [facility] Work Phone: [phone] 150-331802-27-2025 Radiology Diagnostic study note [facility] Imaging Services [address] [place], [place] [address] Brain/Head without Contrast MR#: [id number] Acct: [id number] Name: TERENCE VALDIVIA Rep #: [id number] : 1950 F 73 From: [place] MD PCP: Dr. Will Lim MD Status: DARLENE CHAUHAN Study:Brain/Head without Contrast Date of Exa m: 04/26/24 Exam# [id number] Ordering Dr: Will Lim MD EXAM: BRAIN/HEAD [...] mass lesion or mass effect. Reading Location: [id number] CC: Dr. Will Lim MD ~ Recreation Therapy Aides Teacher: Signed [facility]01-07-2025 Note* Exam Date Time Procedure Performing Provider Status 03/06/24 1:31 PM MRI Brain w/ + w/o Contrast JAYSON BOWMAN MD; Auth (Verified) [id number] ORIGINAL HISTORY: Radiation therapy planning COMPARISON: 30 [...] Date: 03/06/2024 1:53:41 PM Ordering Provider: [place] [facility]12-13-2024 Hospital Discharge instructions Patient Education 02/10/2024 10:00:16 [...] Consider working with a physical therapist or life trainer who can develop an exercise plan to help you gain muscle strength. General instructions Take rhyd-hsq-jsqeqfl and prescription medicines only as told by [...] 02/14/2006 Document Revised: 09/20/2018 Document Reviewed: 09/20/2018 [employer] Patient Education 2020 [employer]. Follow Up Care 02/03/2024 10:59:13 With:BHARATI MOYA DO Address: [address] [place] [address] [place] [address] [phone] When: Unknown With:ROSEMARIE TINEO MD, Neurosurgery Address: [address] [place] [address] [address] [facility] [place] [address] [phone] When: Unknown [facility] 12-13-2024 Note Discharge Instructions Thank you for allowing [facility] to assist you with your healthcare needs. The following is importantdischarge information regarding your hospital visit. Your Care Team [facility] Your Diagnosis Asthenia Brain mass Diabetes mellitus Hypertension What to do next Instructions From Your Doctor You were admitted to [facility] transitional care program for ongoing therapy prior to going home. You have now decided to transition to [facility] to finish your skilled stay. Please follow-up with oncology as scheduled to begin treatment for your brain mass. We also recommend that you follow-up with your PCP in the next week or so for a post- hospitalization follow-up. We wish you well as you transition to [facility] today. Thank you for choosing [facility] TCU for your rehab stay. Scheduled Follow-Up Appointments Appointment Type When With Where Contact Information StatusHEM ONC CERTIFIED OPHTHALMIC ASSISTANT Hospital Follow Up 508:30 AM EST LUPE GONZALEZ MD [facility] Confirmed Follow Up Appointments Follow Up with BHARATI MOYA DO Where:[address] [facility] [place] [address] [phone] Follow Up with ROSEMARIE TINEO MD, Neurosurgery Where:[address] [place] [address] [phone] The Following Activity and Diet Have Been [...] Signed By - Ordered -- 02/10/24 7:35:00 SHARIF, ABDIEL SHEPHERD [employer]ANCED PRACTICE NURSE-INTERFACE DESIGNER Transfer of Care Prognosis - Ordered -- Fair, Patient Aware: Yes Transfer of Care Rehab Potential - Ordered -- Rehab potential nelda, 02/10/24 7:35:04 EST Someone Will Contact You [...] Consider working with a physical therapist or life trainer who can develop an exercise plan to help you gain muscle strength. General instructions Take xrex-sqb-xchuiyz and prescription medicines only as told by [...] 02/14/2006 Document Revised: 09/20/2018 Document Reviewed: 09/20/2018 [employer] Patient Education 2020 [employer] Additional Information VACCINATE! IT SAVES LIVES! Members of the community who have not yet received the COVID-19 vaccine and would like to receive it can visit one of [facility] vaccine clinics. There are many vaccine clinic locations within the [facility]. For locations and available times, please visit [email or web address].gov/. It is important to note that some COVID mobile vaccine clinics are held outdoors and may be canceled in rainy or stormy conditions. To learn more about pediatric vaccinations (ages 5-11), we invite you to visit the [facility] webpage. [email or web address]/[email or web address]-Yvguvkcmon-[email or web address]-Yjz stions.htmlTo learn more about the COVID-19 vaccine, we invite you to visit the CDC website for a list of frequently asked questions.https://www.cdc.gov/coronavirus/2019-ncov/vaccines/faq.html [facility] Patient Portal Access Instructions: Stay connected with your healthcare team and access your personal medical information anytime with the [facility] Patient Portal. Please follow the directions below to create your [facility] account: 1.Access the email account you provided upon registration to the hospital/physician office.2.Look for an invitation email from [facility].3.Open the email and access the invitation link: AcceptInvitation to [facility] One[facility].4.Fill in the required delgado to create your account. To access your account, visit [email or web address]. Click the blue button labeled Access Patient [...] who you will allowto register on the [facility] [employer] Patient Portal for access to your information. You can also access the [facility] [employer] Patient Portal on the [facility] Anywhere priyank. Simply click on Patient Portal and then log into your account. If you would like to receive a full copy of your medical records, please contact the [facility] Medical Records Department by calling [phone], Tuesday through Tuesday between 8 a.m. and [...] Call your local pharmacy or go to [email or web address] to find one close to you.3.Make use of household items: Use cat litter or old coffee grounds to dispose medications if other options arenot available. Mix your drugs with these household products, seal them in an airtight container andthrow it into the garbage. Call [facility]: [phone] to be sure your drugs can be [...] that I should contact my d octor. Patient/Salesperson Fashion Accessories Signature: Date/Time: Relationship to Patient: Witness Name/Signature: Date/Time: [facility]12-10-2024 Note Date of Service 02/06/2024 Chief Complaint Asthenia Subjective 73-year-old female with past medical history significant for HTN, type 2 diabetes mellitus, MDD, OAB, drug-induced myopathy, HLD, GERD, hearing loss, OA, vitamin D deficiency hypothyroidism, brain mass s/p tumor debulking. Patient was admitted to [facility] from [facility] for evaluation by neurosurgery on 01/25/2024. She was diagnosed with a brain mass at the end of November 2023. She was experiencing frequent falls and left-sided hemiparesis. [facility]20[facility] after sustaining a fall. She [...] further distances. She was subsequently admitted to [facility] TCU. Patient has no new [...] Oral, qHS menthol (Biofreeze) gel packet 1 priyank, Topical, TID polyethylene glycol 3350 - UD [...] done on 02/13/2024. I spoke with nurse Maria L at the neurosurgeons office to clarify order [...] may include grammatical and/or spelling errors. CPT: 45823 Time Spent 30 minutes Digitally Signed by RUBI SINGER on 02/07/2024 08:16 AM [facility]12-09-2024 Pastoral care Progress note Pastoral Care Note Entered On: 02/06/2024 10:11 EST Performed On: 02/06/2024 10:08 EST by Marino Rosenberg Pastoral Care Type of Pastoral Visit : Initial visit Spiritual Care Visit Initiated by : Extension Work Director Spiritual Care Reason for Visit : General Pastoral Care Referral From : Patient Spiritual Assessment : Spiritual, not Christian, Hopeful, Positive Image of God Spiritual Care [...] by Marino Rosenberg on 02/06/2024 10:08 AM [facility]12-07-2024 Evaluation + Plan noteExtracted from: Title:History and Physical Author:RUBI SINGER APRN-INTERFACE DESIGNER Date:02/04/24 1. Asthenia 2. Brain mass 3. [...] GONZALEZ MD Location:HEM ONC Appointment Type:HEM ONC CERTIFIED OPHTHALMIC ASSISTANT Hospital Follow Up [facility] 12-07-2024 Note Date of Service 02/04/24 History of Present Illness 73-year-old female with past medical history significant for HTN, type 2 diabetes mellitus, MDD, OAB, drug-induced myopathy, HLD, GERD, hearing loss, OA, vitamin D deficiency hypothyroidism, brain mass s/p tumor debulking. Patient was admitted to [facility] from [facility] for evaluation by neurosurgery on 01/25/2024. She was diagnosed with a brain mass at the end of November 2023. She was experiencing frequent falls and left-sided hemiparesis. She went to [facility] on 01/25/2024 after sustaining a fall. She [...] further distances. She was subsequently admitted to [facility] TCU. On exam today, pt [...] by RUBI SINGER on 02/04/2024 11:39 AM [facility]12-06-2024 Note Date of Service 02/02/2024 This is a split/shared visit with Dr. 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 POD #3 73-year-old female who presented initially to [facility] ED on 01/25/2024 with complaints of multiple falls, difficulty standing up. During her workup at [facility], had a noncontrasted head CT which demonstrated a brain mass in the right parietal/occipital region. Patient was then transferred to [facility] for evaluation by neurosurgery. She had recently been seen by her primary care physician due to recurrent falls and left-sided weakness; falling almost daily. MRI of the brain was ordered, but prior to completion patient was evaluated after a fall in [place] ED. At that time she had a [...] became progressively weaker, and was taken to [place] ED for further evaluation. In ED, patient [...] are widely expanded. The deep white matter revealsheterogeneous portions of the mass. Dr. Tineo met [...] meals. Has been skilled for inpatient therapy. [facility] [employer] PILOT assisting with discharge disposition; Planning for [facility] time of discharge. preCERT started 02/01/24 --Encourage [...] by MADIHA ZHANG on 02/02/2024 02:30 PM [facility] [id number] Note Discharge Instructions Thank you for allowing [facility] to assist you with your healthcare needs. [...] a fever/chills- Contact neurosurgery office immediately. The investigation officer should be in contacting with you to assist with scheduling any appointments and to make sure you are on track with your follow up appointments. Radiation therapy should also be contacting your to schedule an appointment, once your incision is healed. Follow Up Appointments Follow Up with [facility], When:Within 1-2 days Follow Up with BHARATI MOYA DO Where:[address] [place] [address] [place] [address] [phone] Additional Information: The Oncology office will call to schedule an appointment with either Dr. Moya or Dr. Martinez. If you have not heard from them by the end of next week, please call them to schedule an appointment. Follow Up with ROSEMARIE TINEO MD, Neurosurgery Where:[address] [place] [address]- [phone] Additional Information: Follow up after discharged from rehab. Please call the office to schedule afollow up appointment once you know the date of discharge from rehab. Follow Up with SAY LIM MD When:Within 1-2 days Where:[facility] [address] [place] [address]- Additional Information: Please call the office to [...] Get up and walk. IV patient-controlled analgesia (SAP GATHERER) pump With this method, you receive pain medicine through an IV that is connected to a SAP GATHERER pump. The SAP GATHERER pump gives you a specific amount of medicine when you push a button. This lets you control how much medicine you receive. You are the only person who should push this button. The pump is set up so that you cannot accidentally give yourself too much medicine. You will be able to start using your SAP GATHERER pump in the recovery room after your [...] 05/07/2003 Document Revised: 02/17/2018 Document Reviewed: 05/27/2017 [employer] Patient Education 2020 [employer]. Additional Information VACCINATE! IT SAVES LIVES! Members of the community who have not yet received the COVID-19 vaccine and would like to receive it can visit one of [facility] vaccine clinics. There are many vaccine clinic locations within the [facility]. For locations and available times, please visit https://[email or web address].[place].gov/. It is important to note that some COVID mobile vaccine clinics are held outdoors and may be canceled in rainy or stormy conditions. To learn more about pediatric vaccinations (ages 5-11), we invite you to visit the [facility] webpage. https://www.[facility].org/pages/4559-Rpybk-Brggecsdgal-Deviiwpwem-Snazp-Uto stions.htmlTo learn more about the COVID-19 vaccine, we invite you to visit the CDC website for a list of frequently asked questions.https://www.cdc.gov/coronavirus/2019-ncov/vaccines/faq.html [facility] Patient Portal Access Instructions: Stay connected with your healthcare team and access your personal medical information anytime with the [facility] Patient Portal. Please follow the directions below to create your [facility] account: 1.Access the email account you provided upon registration to the hospital/physician office.2.Look for an invitation email from [facility].3.Open the email and access the invitation link: AcceptInvitation to [facility].4.Fill in the required delgado to create your account. To access your account, visit [email or web address] Traveller/[facility]. Click the blue button labeled Access Patient [...] who you will allowto register on the [facility] Patient Portal for access to your information. You can also access the [facility] Patient Portal on the [facility] priyank. Simply click on Patient Portal and then log into your account. If you would like to receive a full copy of your medical records, please contact the [facility] Medical Records Department by calling [phone], Tuesday through Tuesday between 8 a.m. and [...] Call your local pharmacy or go to http://SearchForce.StyleFactory/7N7Gr5q to find one close to you.3.Make use of household items: Use cat litter or old coffee grounds to dispose medications if other options arenot available. Mix your drugs with these household products, seal them in an airtight container andthrow it into the garbage. Call [facility]: [phone] to be sure your drugs can be [...] that I should contact my d octor. Patient/Salesperson Fashion Accessories Signature: Date/Time: Relationship to Patient: Witness Name/Signature: Date/Time: [facility] [id number] Note Discharge Instructions Thank you for allowing [facility] to assist you with your healthcare needs. [...] a fever/chills- Contact neurosurgery office immediately. The investigation officer should be in contacting with you to assist with scheduling any appointments and to make sure you are on track with your follow up appointments. Radiation therapy should also be contacting your to schedule an appointment, once your incision is healed. Follow Up Appointments Follow Up with BHARATI MOYA DO Where:[address] [place] [address] [place] [address]- [phone] Additional Information: The Oncology office will call to schedule an appointment with either Dr. Moya or Dr. Martinez. If you have not heard from them by the end of next week, please call them to schedule an appointment. Follow Up with ROSEMARIE TINEO MD, Neurosurgery Where:[address] [place] [address]- [phone] Additional Information: Follow up after discharged from rehab. Please call the office to schedule afollow up appointment once you know the date of discharge from rehab. Follow Up with SAY LIM MD When:Within 1-2 days Where:[facility] [address] [place] [address]- Additional Information: Please call the office to [...] Get up and walk. IV patient-controlled analgesia (SAP GATHERER) pump With this method, you receive pain medicine through an IV that is connected to a SAP GATHERER pump. The SAP GATHERER pump gives you a specific amount of medicine when you push a button. This lets you control how much medicine you receive. You are the only person who should push this button. The pump is set up so that you cannot accidentally give yourself too much medicine. You will be able to start using your SAP GATHERER pump in the recovery room after your [...] 05/07/2003 Document Revised: 02/17/2018 Document Reviewed: 05/27/2017 [employer] Patient Education 2020 [employer]. Additional Information VACCINATE! IT SAVES LIVES! Members of the community who have not yet received the COVID-19 vaccine and would like to receive it can visit one of [facility] vaccine clinics. There are many vaccine clinic locations within the [facility]. For locations and available times, please visit https://gettheshot.coronavirus.[place].gov/. It is important to note that some COVID mobile vaccine clinics are held outdoors and may be canceled in rainy or stormy conditions. To learn more about pediatric vaccinations (ages 5-11), we invite you to visit the [facility] webpage. https://www.[facility].org/pages/8264-Qesve-Syjmixzjzmc-Eqijgrrkky-Jwzvb-Xsf stions.htmlTo learn more about the COVID-19 vaccine, we invite you to visit the CDC website for a list of frequently asked questions.https://www.cdc.gov/coronavirus/2019-ncov/vaccines/faq.html [facility] Patient Portal Access Instructions: Stay connected with your healthcare team and access your personal medical information anytime with the [facility] Patient Portal. Please follow the directions below to create your [facility] account: 1.Access the email account you provided upon registration to the hospital/physician office.2.Look for an invitation email from [facility].3.Open the email and access the invitation link: AcceptInvitation to [facility].4.Fill in the required delgado to create your account. To access your account, visit [email or web address] Traveller/[facility]. Click the blue button labeled Access Patient [...] who you will allowto register on the [facility] Patient Portal for access to your information. You can also access the [facility] Patient Portal on the [facility] priyank. Simply click on Patient Portal and then log into your account. If you would like to receive a full copy of your medical records, please contact the [facility] Medical Records Department by calling [phone], Tuesday through Tuesday between 8 a.m. and [...] Call your local pharmacy or go to http://SearchForce.StyleFactory/0T2Vx5h to find one close to you.3.Make use of household items: Use cat litter or old coffee grounds to dispose medications if other options arenot available. Mix your drugs with these household products, seal them in an airtight container andthrow it into the garbage. Call [facility]: [phone] to be sure your drugs can be [...] that I should contact my d octor. 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 [...] a fever/chills- Contact neurosurgery office immediately. The investigation officer should be in contacting with you to assist with scheduling any appointments and to make sure you are on track with your follow up appointments. Radiation therapy should also be contacting your to schedule an appointment, once your incision is healed. Follow Up Appointments Follow Up with BHARATI MOYA DO Where:[address] [place] [address] [place] [address]- [phone] Additional Information: The Oncology office will call to schedule an appointment with either Dr. Moya or Dr. Martinez. If you have not heard from them by the end of next week, please call them to schedule an appointment. Follow Up with ROSEMARIE TINEO MD, Neurosurgery Where:[address] [place] [address]- [phone] Additional Information: Follow up after discharged from rehab. Please call the office to schedule afollow up appointment once you know the date of discharge from rehab. Follow Up with SAY LIM MD When:Within 1-2 days Where:[facility] [address] [address] [place] [address]- Additional Information: Please call the office to [...] Get up and walk. IV patient-controlled analgesia (SAP GATHERER) pump With this method, you receive pain medicine through an IV that is connected to a SAP GATHERER pump. The SAP GATHERER pump gives you a specific amount of medicine when you push a button. This lets you control how much medicine you receive. You are the only person who should push this button. The pump is set up so that you cannot accidentally give yourself too much medicine. You will be able to start using your SAP GATHERER pump in the recovery room after your [...] 05/07/2003 Document Revised: 02/17/2018 Document Reviewed: 05/27/2017 [employer] Patient Education 2020 [employer]. Additional Information VACCINATE! IT SAVES LIVES! Members of the community who have not yet received the COVID-19 vaccine and would like to receive it can visit one of [facility] vaccine clinics. There are many vaccine clinic locations within the [facility]. For locations and available times, please visit https://gettheshot.coronavirus.[place].gov/. It is important to note that some COVID mobile vaccine clinics are held outdoors and may be canceled in rainy or stormy conditions. To learn more about pediatric vaccinations (ages 5-11), we invite you to visit the [facility] webpage. https://www.[facility].org/pages/2832-Jhekf-Ymytynipvrh-Krouavrjdw-Mzjks-Nbe stions.htmlTo learn more about the COVID-19 vaccine, we invite you to visit the CDC website for a list of frequently asked questions.https://www.cdc.gov/coronavirus/2019-ncov/vaccines/faq.html [facility] Patient Portal Access Instructions: Stay connected with your healthcare team and access your personal medical information anytime with the [facility] Patient Portal. Please follow the directions below to create your [facility] account: 1.Access the email account you provided upon registration to the hospital/physician office.2.Look for an invitation email from [facility].3.Open the email and access the invitation link: AcceptInvitation to [facility].4.Fill in the required delgado to create your account. To access your account, visit [email or web address] Traveller/[facility]unde. Click the blue button labeled Access Patient [...] who you will allowto register on the [facility] Patient Portal for access to your information. You can also access the [facility] Patient Portal on the [facility] priyank. Simply click on Patient Portal and then log into your account. If you would like to receive a full copy of your medical records, please contact the [facility] Medical Records Department by calling [phone], Tuesday through Tuesday between 8 a.m. and [...] Call your local pharmacy or go to http://SearchForce.StyleFactory/3G8Fo0h to find one close to you.3.Make use of household items: Use cat litter or old coffee grounds to dispose medications if other options arenot available. Mix your drugs with these household products, seal them in an airtight container andthrow it into the garbage. Call [facility]: [phone] to be sure your drugs can be [...] that I should contact my d octor. 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 IV patient-controlled analgesia (SAP GATHERER) pump With this method, you receive pain medicine through an IV that is connected to a SAP GATHERER pump. The SAP GATHERER pump gives you a specific amount of medicine when you push a button. This lets you control how much medicine you receive. You are the only person who should push this button. The pump is set up so that you cannot accidentally give yourself too much medicine. You will be able to start using your SAP GATHERER pump in the recovery room after your [...] 05/07/2003 Document Revised: 02/17/2018 Document Reviewed: 05/27/2017 [employer] Patient Education 2020 [employer]. Follow Up Care 01/25/2024 05:36:25 With:[facility], Address:Unknown When:1-2 days With:BHARATI MOYA DO Address: [address] [place] [address] [place] [address] [phone] When: Unknown Comments:The Oncology office will call to schedule an appointment with either Dr. Moya or Dr. Martinez. If you have not heard from them by the end of next week, please call them to schedule an appointment. With:ROSEMARIE TINEO MD, Neurosurgery Address: [address] [place] [address] [phone] When: Unknown Comments:Follow up after discharged from rehab. Please call the office to schedule a follow up appointment once you know the date of discharge from rehab. With:SAY LIM MD Address: [facility] [address] [place] [address] [address] [place] [address]- When:1-2 days Comments:Please call the office to schedule a hospital follow-up appointment. 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 She apparently was trying get up to go to therestroom, and felt as though she could not bear weight on her legs and ended up sliding down the side of the bed striking her head on the wooden bed frame. During her workup at [facility], she had a CT of the head, which demonstrated a brain mass in the right parietal occipital region. Due tothese findings, she was transferred to [facility] for evaluation by neurosurgery. The [...] had a CT of the head at [facility] which demonstrated 3.6 x 2.8 cm enhancing [...] inability to mobilize, she was brought to [facility] as mentioned above and then transferred to [facility]. She was given dexamethasone 10 [...] assistance by nursing as well as a wal ker to transfer from the chair to the [...] No headaches. The patient's daughter, , and cnavtm-ty-gem have been kept well-informed in regards to the MRI results, surgical procedure, and postoperative care. They state understanding of all the above. The oncology [employer] PRACTICE NURSE did speak with the patient today, and explained that an appointment would be provided for her to follow-up with oncology. The oncology office will call her [id number] per the patient's request, with that appointment [...] a fever/chills- Contact neurosurgery office immediately. The investigation officer should be in contacting with you to [...] Up with BHARATI MOYA DO Where:[address] [facility] [place] [address]- [phone] Additional Information: The Oncology office will call to schedule an appointment with either Dr. Moya or Dr. Martinez. If you have not heard from them by the end of next week, please call them to schedule an appointment. Follow Up with ROSEMARIE TINEO MD, Neurosurgery Where:[address] [facility] [address] [place] [address] [phone] Additional Information: Follow up after discharged from rehab. Please call the office to schedule afollow up appointment once you know the date of discharge from rehab. Follow Up with SAY LIM MD When:Within 1-2 days Where:[facility] [address] [place] [address]- Additional Information: Please call the office to [...] ROSEMARIE TINEO MD on 02/03/2024 04:06 PM [facility] [id number] Note Date of Service 02/02/2024 This is a split/shared visit with Dr. 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 POD #3 73-year-old female who presented initially to [facility] ED on 01/25/2024 with complaints of multiple falls, difficulty standing up. During her workup at [facility], had a noncontrasted head CT which demonstrated a brain mass in the right parietal/occipital region. Patient was then transferred to [facility] for evaluation by neurosurgery. She had recently been seen by her primary care physician due to recurrent falls and left-sided weakness; falling almost daily. MRI of the brain was ordered, but prior to completion patient was evaluated after a fall in [place] ED. At that time she had a [...] became progressively weaker, and was taken to [place] ED for further evaluation. In ED, patient [...] meals. Has been skilled for inpatient therapy. [employer] PILOT assisting with discharge disposition; Planning for [facility] time of discharge. preCERT started 02/01/24 --Encourage [...] by MADIHA ZHANG on 02/02/2024 02:30 PM [facility] [id number] Note Date of Service 01/31/2024 This is a split/shared visit with Dr. 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 POD #2 73-year-old female who presented initially to [facility] ED on 01/25/2024 with complaints of multiple falls, difficulty standing up. During her workup at [facility], had a noncontrasted head CT which demonstrated a brain mass in the right parietal/occipital region. Patient was then transferred to [facility] for evaluation by neurosurgery. She had recently been seen by her primary care physician due to recurrent falls and left-sided weakness; falling almost daily. MRI of the brain was ordered, but prior to completion patient was evaluated after a fall in [place] ED. At that time she had a [...] became progressively weaker, and was taken to [place] ED for further evaluation. In ED, patient [...] therapy. Has been skilled for inpatient therapy. [employer]AL [employer]LINE PILOT assisting with discharge disposition. Planning for [facility] at time of discharge. --Subgaleal drain output [...] by MADIHA ZHANG on 02/01/2024 01:33 PM [facility] [id number] Note Date of Service 01/31/2024 This is a split/shared visit with Dr. 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 POD #1 73-year-old female who presented to [facility] ED on 01/25/2024 with complaints of multiple falls, difficulty standing up. Patient was apparently trying to get up and use the restroom, and feltas though she cannot bear weight on her legs. This caused her to slide down the side of the bed striking her head on the wooden bed frame. During her workup at [facility], patient had a noncontrasted head CT which demonstrated a brain mass in the right parietal/occipital region. Patient was then transferred to [facility] for evaluation by neurosurgery. She had recently been seen by her primary care physician due to recurrent falls and left-sided weakness. Per review of documentation, patient had apparently been falling almost daily. MRI of the brain was ordered, but prior to completion patient was evaluated after a fall in [place] ED. At that time she had a [...] home, became progressively weaker, and wastaken to [place] ED for further evaluation. In ED, patient was given 10 mg of dexamethasone, and then scheduled on 4 mg every 6 hours. Patient has had no documented/witnessed seizure activity, and did not require Keppra pre-operatively. MRI of the brain completed at [place] demonstrates the right parietal/occipital lesion with irregular [...] LE at all times while in bed. --Chief Estimator following for medical management. HTN, improved --Patient did require nicardipine drip, however was able to be weaned down and off by about 0230 this morning. --BP is stable now. --Maintain SBP 140mmHg. Please see Dr. Tineo's addendum for further details regarding neurosurgical assessment/plan of care. Digitally Signed by MADIHA ZHANG on 01/31/2024 10:28 PM [facility] [id number] Note Date of Service 01/31/2024 This is a split/shared visit with Dr. 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 POD #2 73-year-old female who presented initially to [facility] ED on 01/25/2024 with complaints of multiple falls, difficulty standing up. During her workup at [facility], had a noncontrasted head CT which demonstrated a brain mass in the right parietal/occipital region. Patient was then transferred to [facility] for evaluation by neurosurgery. She had recently been seen by her primary care physician due to recurrent falls and left-sided weakness; falling almost daily. MRI of the brain was ordered, but prior to completion patient was evaluated after a fall in [place] ED. At that time she had a [...] became progressively weaker, and was taken to [place] ED for further evaluation. In ED, patient [...] therapy. Has been skilled for inpatient therapy. [employer] assisting with discharge disposition. Planning for [place] [...] by MADIHA ZHANG on 02/01/2024 01:33 PM [facility] [id number] Neurological surgery Progress note Date of Service [...] by MADIHA ZHANG on 02/01/2024 01:41 PM [facility] [id number] Note Date of Service 01/31/2024 This is a split/shared visit with Dr. 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 POD #2 73-year-old female who presented initially to [facility] ED on 01/25/2024 with complaints of multiple falls, difficulty standing up. During her workup at [facility], had a noncontrasted head CT which demonstrated a brain mass in the right parietal/occipital region. Patient was then transferred to [facility] for evaluation by neurosurgery. She had recently been seen by her primary care physician due to recurrent falls and left-sided weakness; falling almost daily. MRI of the brain was ordered, but prior to completion patient was evaluated after a fall in [place] ED. At that time she had a [...] became progressively weaker, and was taken to [place] ED for further evaluation. In ED, patient [...] therapy. Has been skilled for inpatient therapy. [employer] assisting with discharge disposition. Planning for [place] [facility] at time of discharge. --Subgaleal [...] by MADIHA ZHANG on 02/01/2024 01:33 PM [facility] [id number] Note A. BRAIN, RIGHT PARIETAL MASS, DEBULKING: [...] OF INCREASED CELLULARITY, NOT DIAGNOSTIC OF NEOPLASM [facility] 12-04-2024 Note A. BRAIN, RIGHT [...] OF INCREASED CELLULARITY, NOT DIAGNOSTIC OF NEOPLASM [facility] 12-03-2024 Note Date of Service [...] She was given dexamethasone and transferred to [facility]. She was seen in consultation [...] twice daily. She is receiving as needed [place] and Dilaudid for pain control. Plan is [...] per neurosurgery 9. Continue as needed acetaminophen, [place] and Dilaudid for pain control. 10. Protonix 40 mg p.o. daily for GI prophylaxis 11. SCDs for DVT prophylaxis CODE STATUS full code Plan of care discussed with Dr. Garcia. Please see his addendum below for further details. Digitally Signed by AURORA COLEY on 01/31/2024 09:27 AM [facility] [id number] Note ORIGINAL EXAMINATION: MRI OF THE BRAIN [...] Sign Date: 01/31/2024 9:21:14 AM Ordering Provider: [facility]12-03-2024 Note Date of Service 01/31/2024 This is a split/shared visit with Dr. 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 POD #1 73-year-old female who presented to [facility] ED on 01/25/2024 with complaints of multiple falls, difficulty standing up. Patient was apparently trying to get up and use the restroom, and feltas though she cannot bear weight on her legs. This caused her to slide down the side of the bed striking her head on the wooden bed frame. During her workup at [facility], patient had a noncontrasted head CT which demonstrated a brain mass in the right parietal/occipital region. Patient was then transferred to [facility] for evaluation by neurosurgery. She had recently been seen by her primary care physician due to recurrent falls and left-sided weakness. Per review of documentation, patient had apparently been falling almost daily. MRI of the brain was ordered, but prior to completion patient was evaluated after a fall in [place] ED. At that time she had a [...] home, became progressively weaker, and wastaken to [place] ED for further evaluation. In ED, patient was given 10 mg of dexamethasone, and then scheduled on 4 mg every 6 hours. Patient has had no documented/witnessed seizure activity, and did not require Keppra pre-operatively. MRI of the brain completed at [place] demonstrates the right parietal/occipital lesion with irregular [...] LE at all times while in bed. --Chief Estimator following for medical management. HTN, improved --Patient did require nicardipine drip, however was able to be weaned down and off by about 0230 this morning. --BP is stable now. --Maintain SBP 140mmHg. Please see Dr. Tineo's addendum for further details regarding neurosurgical assessment/plan of care. Digitally Signed by MADIHA ZHANG on 01/31/2024 10:28 PM [facility] [id number] Note Date of Service 01/31/2024 Subjective 73-year-old [...] She was given dexamethasone and transferred to [facility]. She was seen in consultation [...] twice daily. She is receiving as needed [place] and Dilaudid for pain control. Plan is [...] per neurosurgery 9. Continue as needed acetaminophen, [place] and Dilaudid for pain control. 10. Protonix 40 mg p.o. daily for GI prophylaxis 11. SCDs for DVT prophylaxis CODE STATUS full code Plan of care discussed with Dr. Garcia. Please see his addendum below for further details. Digitally Signed by AURORA COLEY on 01/31/2024 09:27 AM [facility] [id number] Critical care medicine Consult note Date of [...] The head CT was completed 12/26 in [place] showing a 3.6 x 2.8 cm enhancing mass in the posterior aspect of the right parietal occipital lobes withsurrounding mass effect, along with evidence of heterogeneous areas of enhancement in the superior right posterior parietal lobe, adjacent send cerebral vertex. On 12/29/2023 she had a follow up withher PCP to review the CT results and additional diagnostics including a MRI of the brain (vdhcxauin23/4), CT of chest, abdomen and pelvis (completed 12/28), and PET scan (completed 01/02) was orderedalong with a referral to neurosurgery. She presented to [facility] emergency department on 01/24 with complaints of [...] received IV dexamethasone and was transferred to [facility] for further neurosurgical management. MRI of [...] n.p.o. for surgery today, will resume tomorrow 12/ a.m. 6. Continue Humalog sliding scale 3 [...] mg 01/30 a.m. 10. Pain control with [place] 325-5 mg 1 tab every 4 hours [...] plan of care to be discussed with Chief Estimator, see addendum to follow Critical Care time [...] of Magnesia, 30 mL, Oral, qHS, PRN [place] 325- 5 mg oral tablet, 1 tab(s), [...] by LAURYN VILLAR on 01/30/2024 04:53 PM [facility] [id number] Note Date of Service 01/30/2024 Taken to the OR today for debulking and biopsy of intracranial mass. Plan to transfer to the ICU post operatively. Hospitalist team will sign off. Digitally Signed by CARROL GORDON on 01/30/2024 08:53 AM [facility] [id number] Anesthesiology Consult note Patient: TERENCE VALDIVIA Age: [...] Brain neoplasm tissue sample / SNOMED CT 9412617462 / Confirmed Diabetes mellitus / SNOMED CT 852210713 / Confirmed STRESS INCONTINENCE, FEMALE / SNOMED CT 564735055 / Confirmed Gait difficulty / SNOMED CT 765649156 / Confirmed GERD - Gastro-esophageal reflux disease / SNOMED CT 3468930503 / Confirmed Hearing loss / SNOMED CT 94001324 / Confirmed Hyperlipidemia / SNOMED CT 19338392 / Confirmed Hypertension / SNOMED CT 90183911 / Confirmed Hypothyroidism / SNOMED CT 41888022 / Confirmed Neck pain / SNOMED CT 264597855 / Confirmed Osteoarthritis / SNOMED CT 3407059964 / Confirmed, Active Problems (11) Brain neoplasm [...] Oral36.4 DegC (JAN 29 02:37) Heart Rate Nxvxtusna63 bpm (JAN 29 07:50) KRB732 mmHg (JAN 29 07:49) DBP70 mmHg (JAN [...] Anesthesiologist SN - CAt - Role Performed BIG DATA LEAD SN - CAt - Role Performed Section Laborer 1 SN - CAt - Role Performed Scrub 1 SN - CAt - Role Performed Resourcing Advisor 1 SN - CAt - Role Performed Resourcing Advisor 2 SN - CAt - Role Performed [...] Rhythm Sinus rhythm Monitoring Lead II, V1/MCL1 MD Interval 0.14 second(s) QRS Duration 0.10 second(s) [...] Type 0-10 Pain scale Nail Bed Color [place] Capillary Refill < 2 seconds Heart Rhythm [...] difficulties Skin Symptoms Bruising All Extremity Description [place] Skin Temperature Warm Temperature All Extremities Warm Skin Description [place], Dry Skin Integrity Intact Skin Turgor Non-Elastic Mucous Membrane Color [place] Mucous Membrane Description Moist Neurological Language Able [...] 01/29/2024 14:57 EST Cardiac Rhythm Sinus rhythm MD Interval 0.17 second(s) QRS Duration 0.04 second(s) [...] Type 0-10 Pain scale Nail Bed Color [place] Capillary Refill < 2 seconds Heart Rhythm [...] resting/crying Skin Symptoms Bruising All Extremity Description [place] Skin Temperature Warm Temperature All Extremities Warm Skin Description [place], Dry Skin Integrity Intact Skin Turgor Non-Elastic Mucous Membrane Color [place] Mucous Membrane Description Moist Sensory Perception Jaxon [...] Alert Aspiration Risk None Eye Opening Response [place] Spontaneously Best Motor Response [place] Obeys simple commands Best Verbal Response [place] Oriented Isak Coma Score 15 LEVAR Yes [...] Rhythm Sinus rhythm Monitoring Lead II, V1/MCL1 MD Interval 0.13 second(s) QRS Duration 0.07 second(s) [...] 2:05 EST Blood Glucose, Capillary 187 mg/dL ID 01/29/2024 1:44 EST Facial Movement Makes facial [...] Verbalizes/Nonverbally indicates understanding . Assessment and Plan [place] [employer] Anesthesiologists (ASA) physical status classification: [...] LÁZARO FRANCISCO MD on 01/30/2024 08:00 AM [facility] [id number] Note ORIGINAL EXAMINATION: MRI OF THE BRAIN [...] Date: 01/30/2024 7:26:17 AM Ordering Provider: WANG [facility]12-01-2024 Neurological surgery Progress note Date of Service [...] ROSEMARIE TINEO MD on 01/29/2024 12:42 PM [facility] [id number] Note Date of Service 01/29/2024 Chief Complaint Ataxia Subjective 73-year-old female with a past medical history of prediabetes, hypothyroidism, anxiety, hypertension. She was a transfer to [facility] from [facility] for management of a recently diagnosed brain [...] hypermetabolic abnormalities were noted. She presented to [facility] on 01/25/2024 after sustaining another fall. Was unable to bear weight on her legs prompting presentation to the ER. Repeat CT head was done which redemonstrated brain mass. [facility] MRI [...] by CARROL GORDON on 01/29/2024 11:00 AM [facility] [id number] Note ORIGINAL EXAMINATION: CTA OF THE HEAD [...] Date: 01/28/2024 5:17:38 PM Ordering Provider: [facility] [id number] Neurological surgery Progress note Date of Service 01/28/2024 This is a split/shared visit with Dr. Tineo Neurosurgical CC: Right parietal/occipital brain mass This is a 73-year-old female who presented to [facility] ED on 01/25/2024 with complaints of multiple falls, difficulty standing up. Patient was apparently trying to get up and use the restroom, and felt as though she cannot bear weight on her legs. This caused her to slide down the side of the bed striking her head on the wooden bed frame. During her workup at [facility], patient hada noncontrasted head CT which demonstrated a brain mass in the right parietal/occipital region. Dueto these findings, patient was transferred to [facility] for evaluation by neurosurgery. Patient had recently been seen by her primary care physician due to recurrent falls and left-sided weakness. Per review of documentation, patient had apparently been falling almost daily. MRI of the brain was ordered, but prior to completion patient was evaluated after a fall in [place] ED. At thattime she had a noncontrasted [...] home, became progressively weaker, andwas taken to [place] ED for further evaluation. In ED, patient was given 10 mg of dexamethasone, and then scheduled on 4 mg every 6 hours. Patient has had no documented/witnessed seizure activity, and has not required Keppra. She does remain on dexamethasone. MRI of the brain completed at [place] demonstrates the right parietal/occipital lesion with irregular [...] strength is intact. Continues with dysmetria with [id number]-mx-[id number] testing on theleft. Incoordination of LUE and [...] by NAHUM SANTOS on 01/28/2024 12:04 PM [facility] [id number] Neurological surgery Progress note Date of Service 01/28/2024 This is a split/shared visit with Dr. Tineo Neurosurgical CC: Right parietal/occipital brain mass This is a 73-year-old female who presented to [facility] ED on 01/25/2024 with complaints of multiple falls, difficulty standing up. Patient was apparently trying to get up and use the restroom, and felt as though she cannot bear weight on her legs. This caused her to slide down the side of the bed striking her head on the wooden bed frame. During her workup at [facility], patient hada noncontrasted head CT which demonstrated a brain mass in the right parietal/occipital region. Dueto these findings, patient was transferred to [facility] for evaluation by neurosurgery. Patient had recently been seen by her primary care physician due to recurrent falls and left-sided weakness. Per review of documentation, patient had apparently been falling almost daily. MRI of the brain was ordered, but prior to completion patient was evaluated after a fall in [place] ED. At thattime she had a noncontrasted [...] home, became progressively weaker, andwas taken to [place] ED for further evaluation. In ED, patient was given 10 mg of dexamethasone, and then scheduled on 4 mg every 6 hours. Patient has had no documented/witnessed seizure activity, and has not required Keppra. She does remain on dexamethasone. MRI of the brain completed at [place] demonstrates the right parietal/occipital lesion with irregular [...] strength is intact. Continues with dysmetria with wdfxqp-iz-sopo testing on theleft. Incoordination of LUE and [...] by NAHUM SANTOS on 01/28/2024 12:04 PM [facility] [id number] Note Date of Service 01/28/2024 Chief Complaint Ataxia Subjective 73-year-old female with a past medical history of prediabetes, hypothyroidism, anxiety, hypertension. She was a transfer to [facility] from [facility] for management of a recently diagnosed brain [...] hypermetabolic abnormalities were noted. She presented to [facility] on 01/25/2024 after sustaining another fall. Was unable to bear weight on her legs prompting presentation to the ER. Repeat CT head was done which redemonstrated brain mass. [facility] MRI [...] by CARROL GORDON on 01/28/2024 11:23 AM [facility] [id number] Note ORIGINAL HISTORY: Surgical planning COMPARISON: Earlier [...] Date: 01/27/2024 8:49:03 AM Ordering Provider: MADIHA ZHANGPrem[facility] Health [facility] [id number] Note ORIGINAL HISTORY: Brain mass COMPARISON: No [...] Date: 01/27/2024 8:47:58 AM Ordering Provider: MADIHA [facility]11-27-2024 History and physical note Date [...] was also ordered. Head CT completed in [place], report reviewed, and indicates patient, for 3.6 [...] significant hypermetabolic abnormalities noted. Patient presented to [facility] earlier this morning after sliding out of [...] sided weakness. Noncontrast head CT was performedat [facility], imaging available for review. Brain mass redemonstrated, no intracranial hemorrhages visualized. ED physician discussed case with on-call neurosurgeon, Dr. Tineo. Patient received 10 mg dexamethasone x 1, and is scheduled 4mg every 6 hours. She was transferred to [facility] for further neurosurgical review and management of [...] drag when she is walking. She is right-handed. Reports she is often knocking over items [...] Results and Diagnostics See HPI Imaging from [place] available on [place] [employer], including recent Brain MRI, Brain CTs, Abd/pelvisCT, [...] over the past couple months. Presented to [facility] the morning of 01/25/2024 after sliding out [...] evaluation. Noncontrast head CT performed 01/25/24 at [facility], imaging available for review. Brain mass redemonstrated, [...] by MADIHA ZHANG on 01/25/2024 02:41 PM [facility] [id number] Consult note Date of Service 01/25/24 Reason for Consultation Perioperative medical management, preoperative optimization Referring Physician Dr. Tineo History of Present Illness 73-year-old female presents as a transfer from [facility] accepted to the neurosurgical service for brain [...] semaglutide. Course at outside hospital: CBC at [place] ED with no significant abnormalities. BP was [...] [facility] Hospitalist consulted for [...] No qualifying data available. Digitally Signed by DAVDI BARNETT MD on 01/25/2024 03:22 PM [facility] [id number] Evaluation + Plan noteExtracted from: Title:History and Physical Author:MADIHA ZHANG APRN-INTERFACE DESIGNER Date:01/25/24 Brain mass Recently diagnosed with brain [...] over the past couple months. Presented to [facility] the morning of 01/25/2024 after sliding out [...] evaluation. Noncontrast head CT performed 01/25/24 at [facility], imaging available for review. Brain mass redemonstrated, [...] the encounter date. I have reviewed the ADVANCED PRACTICE NURSE's documentation and agree with the ADVANCED PRACTICE NURSE's findings and plan as documented, unless otherwise [...] of seizures and hold on an antiepileptic [facility] 11-27-2024 NoteSinus rhythm Electronic Signature: RAMANDEEP GUAMAN MD 01/26/2024 19:01:06[facility] 11-27-2024 History and physical note [...] was also ordered. Head CT completed in [place], report reviewed, and indicates patient, for 3.6 [...] significant hypermetabolic abnormalities noted. Patient presented to [facility] earlier this morning after sliding out of [...] sided weakness. Noncontrast head CT was performedat [facility], imaging available for review. Brain mass redemonstrated, no intracranial hemorrhages visualized. ED physician discussed case with on-call neurosurgeon, Dr. Tineo. Patient received 10 mg dexamethasone x 1, and is scheduled 4mg every 6 hours. She was transferred to [facility] for further neurosurgical review and management of her care. Patient is seen lying in bed. She is in no acute distress. She is fully awake and alert. Follows commands to the best of her ability, and moves all 4 extremities. She does have left-sided hemiparesis and incoordination of the left upper and lower [...] Results and Diagnostics See HPI Imaging from [place] available on [employer], including recent Brain MRI, Brain CTs, Abd/pelvisCT, [...] over the past couple months. Presented to [facility] the morning of 01/25/2024 after sliding out [...] evaluation. Noncontrast head CT performed 01/25/24 at [facility], imaging available for review. Brain mass redemonstrated, [...] any acute concerns for seizure activity. Dr. Dziurzynski has requested new brain MRI with and [...] by MADIHA ZHANG on 01/25/2024 02:41 PM [facility] [id number] Discharge summary Author Jose Oro [facility] June 29, 2023 11:59am Note Date/Time June 29, 2023 11:59a m [facility] Physical Therapy [facility] [address] [place] [address] [address] [place] [address] / REHABILITATION SERVICES DISCHARGE SUMMARY MR#: [id number] Acct: [id number] Name: TERENCE VALDIVIA Rep #: [id number] 09 : 1950 72 From: Cert. SHAGGY GuardadoT, [facility] Referring Dr.: Dr. Lonny Ch MD Status : REG RCR Insurance: MEDICARE PART A B [facility] [id number] [facility] Discharge Summary D/C summary: It has been [...] please feel free to call me at [phone]. Thank you for the referral of thispatient. Sincerely, Jose Oro PT, Cert MDT, OCS Balance/Gait/Functional tests Balance/Special Test Scores Oswestry Low Back Score: 32 Quick DASH Score: 0 Improvement % Improvement: 100 <Electronically signed by Jose Oro PT, Cert. ESTUARDO, OCS> 06/29/23 [id number] CC: Dr. Lonny Ch MD; Dr. Will Lim MD ~ MARGARITA Signed [facility] Work Phone: [phone]) 104-330603-11-2024 Discharge summary Author Jose Oro [facility] May 09, 2023 6:02pm Note Date/Time May 09, 2023 11: 56am [facility] Physical Therapy [facility] [address] [place] [address] / REHABILITATION SERVICES DISCHARGE SUMMARY MR#: [id number] Acct: [id number] Name: TERENCE VALDIVIA Rep #: [id number] 06 : 1950 72 From: Cert. SHAGGY GuardadoT, OCS Referring Dr.: Dr. Az Franco MD Status: REG RCR Insurance: MEDICARE PART A B [facility] [id number] [facility] Discharge Summary D/C summary: It has been [...] please feel free to call me at [phone]. Thank you for the referral of thispatient. Sincerely, Jose Oro, PT, Cert MDT, OCS Balance/Gait/Functional tests Balance/Special Test Scores Quick DASH Score: 11.3625 Improvement % Improvement: 90 <Electronically signed by Jose Oro PT, Cert. T, OCS> 05/09/23 180 CC: Dr. Az Franco MD; Dr. Will Lim MD ~ JLA Signed [facility] Work Phone: Evaluation + Plan note [...] MRI Brain w/ + w/o Contrast 03/06/24 [facility] Evaluation + Plan note Future Appointments Appointment Date:03/22/2024 09:00:00 AM Scheduled Provider:ROSEMARIE TINEO MD Location:NEUROS Appointment Type:NS Post Op Appointment Date:03/22/2024 11:30:00 AM Scheduled Provider:LUPE GONZALEZ MD Location:HEM ONC Appointment Type:HEM ONC OV Follow Up Future Scheduled Tests Laboratory* Lactate Dehydrogenase 03/23/24 * Complete Blood Count 03/23/24 * Complete Metabolic Panel 03/23/24 [facility] Evaluation + Plan note Future Appointments Appointment Date:04/05/2024 03:00:00 PM Scheduled Provider:LUPE GONZALEZ MD Location:HEM ONC Appointment Type:HEM ONC OV Follow Up Future Scheduled Tests Laboratory* Lactate Dehydrogenase 03/23/24 * Complete Blood Count 03/23/24 * Complete Blood Count 04/05/24 * Complete Metabolic Panel 03/23/24 * Complete Metabolic Panel 04/05/24 [facility] evaluation + Plan note Future [...] MRI Brain w/ + w/o Contrast 05/14/24 [facility] evaluation + Plan note Future [...] 05/23/24 * MRI Brain w/ Contrast 05/23/24 [facility] evaluation + Plan note Future [...] 05/23/24 * MRI Brain w/ Contrast 05/23/24 [facility] evaluation + Plan note Future Appointments Appointment Date:08/15/2024 11:45:00 AM Scheduled Provider:LUPE GONZALEZ MD Location:HEM ONC Appointment Type:HEM ONC OV Follow Up w/ Appointment Date:10/12/2024 11:45:00 AM Scheduled Provider: Location:RAD [...] 05/23/24 * MRI Brain w/ Contrast 05/23/24 [facility] evaluation + Plan note Future [...] 05/23/24 * MRI Brain w/ Contrast 05/23/24 [facility] Evaluation + Plan note Future Appointments Appointment Date:09/05/2024 11:30:00 AM Scheduled Provider:LUPE GONZALEZ MD Location:HEM ONC Appointment Type:Telephone Appointment Date:10/12/2024 11:45:00 AM Scheduled Provider: Location:RAD Appointment Type:MRI Brain w/ + w/o Contrast Appointment Date:10/24/2024 11:00:00 AM Scheduled Provider:CLINTON GILBERT MD Location:[facility] [place] Appointment Type:RO Follow Up 30 Future Scheduled Tests Laboratory* Lactate Dehydrogenase 03/23/24 * Complete Blood Count 03/23/24 * Complete Metabolic Panel 03/23/24 Radiology* MRI Brain w/ + w/o Contrast 10/12/24 * MRI Brain w/ + w/o Contrast 05/23/24 * MRI Brain w/ Contrast 05/23/24 [facility] Evaluation + Plan note Future Appointments Appointment Date:10/11/2024 10:15:00 AM Scheduled Provider:LUPE GONZALEZ MD Location:HEM ONC Appointment Type:HEM ONC OV Follow Up w/ Appointment Date:10/12/2024 11:45:00 AM Scheduled Provider: Location:RAD Appointment Type:MRI Brain w/ + w/o Contrast Appointment Date:10/24/2024 11:00:00 AM Scheduled Provider:CLINTON GILBERT MD Location:RAD ONC [place] Appointment Type:RO Follow Up 30 Future Scheduled Tests Laboratory* Lactate Dehydrogenase 03/23/24 * Complete Blood Count 03/23/24 * Complete Blood Count 10/08/24 * Complete Metabolic Panel 03/23/24 * Complete Metabolic Panel 10/08/24 Radiology* MRI Brain w/ + w/o Contrast 10/12/24 * MRI Brain w/ + w/o Contrast 05/23/24 * MRI Brain w/ Contrast 05/23/24 [facility] evaluation + Plan note Future Appointments Appointment Date:10/11/2024 10:15:00 AM Scheduled Provider:LUPE GONZALEZ MD Location:HEM ONC Appointment Type:HEM ONC OV Follow Up w/ Appointment Date:10/12/2024 11:45:00 AM Scheduled Provider: Location:RAD Appointment Type:MRI Brain w/ + w/o Contrast Appointment Date:10/24/2024 11:00:00 AM Scheduled Provider:CLINTON GILBERT MD Location:RAD ONC CAN Appointment Type:RO Follow Up 30 Future Scheduled Tests Laboratory* Lactate Dehydrogenase 03/23/24 * Complete Blood Count 03/23/24 * Complete Metabolic Panel 03/23/24 Radiology* MRI Brain w/ + w/o Contrast 10/12/24 * MRI Brain w/ + w/o Contrast 05/23/24 * MRI Brain w/ Contrast 05/23/24 [facility] Evaluation + Plan note Future Appointments Appointment Date:10/12/2024 11:45:00 AM Scheduled Provider: Location:RAD Appointment Type:MRI Brain w/ + w/o Contrast Appointment Date:10/24/2024 11:00:00 AM Scheduled Provider:CLINTON GILBERT MD Location:RAD ONC [place] Appointment Type:RO Follow Up 30 Appointment Date:11/20/2024 02:15:00 PM Scheduled Provider:LUPE GONZALEZ MD Location:HEM ONC Appointment Type:HEM ONC OV Follow Up brook/ Future Scheduled Tests Laboratory* Lactate Dehydrogenase 03/23/24 * Lactate Dehydrogenase 11/11/24 * Complete Blood Count 03/23/24 * Complete Blood Count 11/11/24 * Complete Metabolic Panel 03/23/24 * Complete Metabolic Panel 11/11/24 Radiology* MRI Brain w/ + w/o Contrast 10/12/24 * MRI Brain w/ + w/o Contrast 05/23/24 * MRI Brain w/ Contrast 05/23/24 [facility] Evaluation + Plan note Future Appointments Appointment Date:10/24/2024 11:00:00 AM Scheduled Provider:CLINTON GILBERT MD Location:RAD ONC [place] Appointment Type:RO Follow Up 30 Appointment Date:11/20/2024 02:15:00 PM Scheduled Provider:LUPE GONZALEZ MD Location:HEM ONC Appointment Type:HEM ONC OV Follow Up w/ Future Scheduled Tests Laboratory* Lactate Dehydrogenase 03/23/24 * Lactate Dehydrogenase 11/11/24 * Complete Blood Count 03/23/24 * Complete Blood Count 11/11/24 * Complete Metabolic Panel 03/23/24 * Complete Metabolic Panel 11/11/24 Radiology* MRI Brain w/ + w/o Contrast 05/23/24 * MRI Brain w/ Contrast 05/23/24 [facility] Evaluation + Plan note Future Appointments Appointment Date:11/20/2024 01:15:00 PM Scheduled Provider:LUPE GONZALEZ MD Location:HEM ONC Appointment Type:HEM ONC OV Follow Up w/ Active Treatme Future Scheduled Tests Laboratory* Lactate Dehydrogenase 11/06/24 * Lactate Dehydrogenase 11/20/24 * Lactate Dehydrogenase 03/23/24 * Lactate Dehydrogenase 11/11/24 * Complete Blood Count 11/06/24 * Complete Blood Count 11/20/24 * Complete Blood Count 03/23/24 * Complete Blood Count 11/11/24 * Complete Metabolic Panel 11/06/24 * Complete Metabolic Panel 11/20/24 * Complete Metabolic Panel 03/23/24 * Complete Metabolic Panel 11/11/24 Radiology* MRI Brain w/ + w/o Contrast 05/23/24 * MRI Brain w/ Contrast 05/23/24 [facility] Evaluation + Plan note Future Appointments Appointment Date:11/06/2024 11:00:00 AM Scheduled Provider: Location:INF Appointment Type:INF/OSP Labwork Appointment Date:11/06/2024 11:15:00 AM Scheduled Provider: Location:INF Appointment Type:INF Chemo: Infusion 180 min (3 hours) Appointment Date:11/20/2024 12:30:00 PM Scheduled Provider: Location:INF Appointment Type:INF/OSP Labwork Appointment Date:11/20/2024 01:15:00 PM Scheduled Provider:LUPE GONZALEZ MD Location:HEM ONC Appointment Type:HEM ONC OV Follow Up w/ Active Treatme Appointment Date:11/20/2024 01:45:00 PM Scheduled Provider: Location:INF Appointment Type:INF Chemo: Infusion 180 min (3 hours) Future Scheduled Tests Laboratory* Lactate Dehydrogenase 11/06/24 * Lactate Dehydrogenase 11/20/24 * Lactate Dehydrogenase 03/23/24 * Lactate Dehydrogenase 11/11/24 * Acute Hepatitis Panel 11/06/24 * Complete Blood Count 11/06/24 * Complete Blood Count 11/20/24 * Complete Blood Count 03/23/24 * Complete Blood Count 11/11/24 * Complete Metabolic Panel 11/06/24 * Complete Metabolic Panel 11/20/24 * Complete Metabolic Panel 03/23/24 * Complete Metabolic Panel 11/11/24 Radiology* MRI Brain w/ + w/o Contrast 05/23/24 * MRI Brain w/ Contrast 05/23/24 [facility] Evaluation + Plan note Future Appointments Appointment Date:11/20/2024 12:30:00 PM Scheduled Provider: Location:INF Appointment Type:INF/OSP Labwork Appointment Date:11/20/2024 01:15:00 PM Scheduled Provider:LUPE GONZALEZ MD Location:HEM ONC Appointment Type:HEM ONC OV Follow Up w/ Active Treatme Appointment Date:11/20/2024 01:45:00 PM Scheduled Provider: Location:INF Appointment Type:INF Chemo: Infusion 180 min (3 hours) Future Scheduled Tests Laboratory* Lactate Dehydrogenase 11/20/24 * Lactate Dehydrogenase 03/23/24 * Lactate Dehydrogenase 11/11/24 * Complete Blood Count 11/20/24 * Complete Blood Count 03/23/24 * Complete Blood Count 11/11/24 * Complete Metabolic Panel 11/20/24 * Complete Metabolic Panel 03/23/24 * Complete Metabolic Panel 11/11/24 Radiology* MRI Brain w/ + w/o Contrast 05/23/24 * MRI Brain w/ Contrast 05/23/24 [facility] evaluation + Plan note Future Appointments Appointment Date:12/04/2024 12:45:00 PM Scheduled Provider: Location:INF Appointment Type:INF/OSP Labwork Appointment Date:12/04/2024 01:00:00 PM Scheduled Provider: Location:INF Appointment Type:INF Chemo: Infusion 180 min (3 hours) Appointment Date:12/18/2024 12:45:00 PM Scheduled Provider: Location:INF Appointment Type:INF/OSP Labwork Appointment Date:12/18/2024 01:30:00 PM Scheduled Provider:JENNIFER PEDERSON Location:HEM ONC Appointment Type:HEM ONC OV Follow Up w/PRIYANK Active Treatm Appointment Date:12/18/2024 02:00:00 PM Scheduled Provider: Location:INF Appointment Type:INF Chemo: Infusion 180 min (3 hours) Future Scheduled Tests Laboratory* Lactate Dehydrogenase 03/23/24 * Lactate Dehydrogenase 11/11/24 * Lactate Dehydrogenase 12/04/24 * Lactate Dehydrogenase 12/18/24 * Complete Blood Count 03/23/24 * Complete Blood Count 11/11/24 * Complete Blood Count 12/04/24 * Complete Blood Count 12/18/24 * Complete Metabolic Panel 03/23/24 * Complete Metabolic Panel 11/11/24 * Complete Metabolic Panel 12/04/24 * Complete Metabolic Panel 12/18/24 Radiology* MRI Brain w/ + w/o Contrast 05/23/24 * MRI Brain w/ Contrast 05/23/24 [facility] Evaluation noteNo assessment information available [facility] Work Phone: Evaluation note* Diagnosis Onset Date Resolution Status Cervical myelopathy acute Spondylolisthesis, cervical region acute [facility] Work Phone: Evaluation note* Diagnosis Onset Date Resolution Status Cervical myelopathy acute Spondylolisthesis, cervical region acute Cervical myelopathy acute Spondylolisthesis, cervical region acute Spondylolisthesis, cervical region acute [facility] Work Phone: Evaluation note* Diagnosis Onset Date Resolution Status Cervical myelopathy acute Spondylolisthesis, cervical region acute Cervical myelopathy acute Spondylolisthesis, cervical region acute Spondylolisthesis, cervical region acute Primary osteoarthritis, right shoulder acute Tendinosis of right shoulder acute [facility] Work Phone: Evaluation note* Diagnosis Onset Date Resolution Status Cervical myelopathy acute Spondylolisthesis, cervical region acute Spondylolisthesis, cervical region acute Primary osteoarthritis, right shoulder acute Tendinosis of right shoulder acute Spondylolisthesis, cervical region acute [facility] Work Phone: Evaluation note* Diagnosis Malignant neoplasm of brain, unspecified documented in this encounter [facility] Work Phone: Evaluation note* Diagnosis Onset Date Resolution Status Admit Date Proximal phalanx fracture of finger acute October 26 9:50am [facility] Work Phone: Hospital course Narrative No data available for this section [facility] Hospital Discharge instructions Additional Instructions Please follow-up with your PCP. Return for any worsening of symptoms. Do not take the Flexeril and drive, it may make you drowsy.[facility] Work Phone: Hospital Discharge instructions Additional Instructions Follow-up with your PCP and return for any worsening of your symptoms. You can take Tylenol as needed for your pain. Ice your shoulder several times a day for the next few days.[facility] Work Phone: Hospital Discharge instructions No data available for this section [facility] Hospital Discharge instructionsAdditional Instructions Follow-up with the orthopedic doctor below in 1 week. Please keep the splint dry. Take tylenol and motrin at home for pain control and ice the hand. Your evaluation in the Emergency Department did not reveal any acute reason for admission. However, I want to emphasize that you may be early in the course of a disease process or illness even if it is not present. For this reason you should follow-up within 24 hours for reevaluation with either your primary care physician or if necessary back here in the Emergency Department. You should return to the Emergency Department immediately if your symptoms worsen or new symptoms develop.[facility] Work Phone: Procedure note* Corrina Johansen: PERFORM Event Display: Procedure Note Authored Date: [id number] [facility] Progress note No data available for this section [facility] Reason for referral (narrative)No reason for referral [facility] Work [facility]: Reason for visit Narrative* Imaging (Routine) - Authorized Specialty Diagnoses / Procedures Referred By Contac t Referred To Contact Radiology Diagnoses Malignant neoplasm of brain, unspecified Procedures MR brain tumor perfusion protocol w and wo IV contrast Sufficool, [place], MD [address] [place] [address] Phone: tel: fax: Referral ID Status Reason Start Date Expiration Date Visits Requested Visits Authorized [id number] Authorized Perform Procedure 05/24/2024 05/24/2025 1 1 [facility] Work Phone: Reason for visit Narrative* Imaging (Routine) - Pending Review Specialty Diagnoses / Procedures Referred By Cheri t Referred To Contact Radiology Diagnoses Malignant neoplasm of brain, unspecified Procedures MR spectroscopy MR brain w and wo IV contrast [place] Gilbert MD [address] [place] [address] Phone: tel: fax: Referral ID Status Reason Start Date Expiration Date Visits Requested Visits Authorized [id number] Pending Review Perform Procedure 05/24/2024 05/24/2025 1 1 [facility] Work Phone: Chief Complaint and Reason for [...] 27, 2024 8:49am Chief Complaint Admit Date [facility] WORK August 24, 2024 5: 00am Chief Complaint Admit Date [facility] WORK August 24, 2024 5: 00am fall October 22, 2024 3: 49pm Chief Complaint Admit Date [facility] WORK August 24, 2024 5: 00am fall October 22, 2024 3: 49pm LEFT HAND October 26, 2024 9: 50am Reason for Visit Admit Date Proximal phalanx fracture of finger Augu st 2024 9:50am Chief Complaint Admit Date [facility] WORK August 24, 2024 5: 00am fall October 22, 2024 3: 49pm LEFT HAND October 26, 2024 9: 50am LEFT HAND November 02, 2024 10:24am RM 1 November 02, 2024 10:35am Advance Directives No Advanced Directives Records Found Advance Directive Response Recorded Date/ Time Name of Medical Power of Environmental Test Technician NERY VALDIVIA- April 30, 2022 11:22am Living Will Yes April 30, 2022 11:22am Power of Environmental Test Technician Yes April 30 11:22am Advance Directive Response Recorded Date/ Time Name of Medical Power of Environmental Test Technician NERY VALDIVIA- April 30, 2022 12:22pm Living Will Yes April 30, 2022 12:22pm Power of Environmental Test Technician Yes April 30 12:22pm Advance Directive Response Recorded Date/ Time Living Will Yes April 30, 2022 12:22pm Power of Environmental Test Technician Yes April 30 12:22pm Advance Directive Response Recorded Date/ Time Living Will Yes April 30, 2022 11:22am Power of Environmental Test Technician Yes April 30 11:22am Advance Directive Response Recorded Date/ Time Name of Medical Power of Environmental Test Technician Nery Clarke February 01, 2023 1:12pm Living Will Yes February 01 1:12pm Power of Environmental Test Technician Yes February 01, 2023 1:12pm Advance Directive Response Recorded Date/ Time Name of Medical Power of Environmental Test Technician Nery Clarke February 01, 2023 2:12pm Living Will Yes February 01 2:12pm Power of Environmental Test Technician Yes February 01, 2023 2:12pm Advance Directive Response Recorded Date/ Time Living Will Yes February 01 2:12pm Power of Environmental Test Technician Yes February 01, 2023 2:12pm Advance Directive Response Recorded Date/ Time Living Will No January 24, 2 024 4:46am Power of Environmental Test Technician No January 25, 2024 4:46am Living Will Yes February 01 2:12pm Power of Environmental Test Technician Yes February 01, 2023 2:12pm Advance Directive Response Recorded Date/ Time Do you have a Healthcare Power of Environmental Test Technician? No October 22, 2024 4:49pm Summary Purpose Family History No Family History [...] January 25, 2024 End: January 25, 2024 Team Status: Active Member Role/Relationship Status Dates Dr. Will Lim MD Primary Care Provider Active Team Status: Inactive Member Role/Relationship Status Dates Dr. Will Lim MD Primary Care Provider Active Start: August 24, 2024 End: August 24, 2024 Dr. Az SHAFER MD Attending Provider Active Start: August 24, 2024 End: August 24, 2024 Team Status: Active Member Role/Relationship Status Dates Dr. Az Ennis DO Primary Care Provider Active Team Status: Inactive Member Role/Relationship Status Dates Dr. Wang Bee MD Emergency Provider Active S tart: October 22, 2024 End: October 22, 2024 Dr. Az Ennis DO Primary Care Provider Active Start: October 22, 2024 End: October 22, 2024 Team Status: Inactive Member Role/Relationship Status Dates Dr. Az Ennis DO Primary Care Provider Active Start: October 26, 2024 End: October 26, 2024 Dr. Az Ennis DO Referring Provider Active Start: October 26, 2024 End: October 26, 2024 Dr. Turner Zavala DO Attending Provider Active Start: October 26, 2024 End: October 26, 2024 Team Status: Inactive Member Role/Relationship Status Dates Dr. Wang Bee MD Attending Provider Active S tart: October 22, 2024 End: October 22, 2024 Dr. Wang Bee MD Emergency Provider Active S tart: October 22, 2024 End: October 22, 2024 Dr. Az Ennis DO Primary Care Provider Active Start: October 22, 2024 End: October 22, 2024 Team Status: Active Member Role/Relationship Status Dates Dr. Az Ennis DO Primary Care Provider Active Start: November 02, 2024 Dr. Az Ennis DO Referring Provider Active Start: November 02, 2024 Dr. Turner Zavala DO Attending Provider Active Start: November 02, 2024 Team Status: Inactive Member Role/Relationship Status Dates Dr. Az Ennis DO Primary Care Provider Active Start: November 02, 2024 End: November 02, 2024 Dr. Tyrone Isabel MD Attending Provider Active S tart: November 02, 2024 End: November 02, 2024 Team Status: Inactive Member Role/Relationship Status Dates Dr. Az Ennis DO Primary Care Provider Active Start: November 02, 2024 End: November 02, 2024 Dr. Az Ennis DO Referring Provider Active Start: November 02, 2024 End: November 02, 2024 Dr. Turner Zavala DO Attending Provider Active Start: November 02, 2024 End: November 02, 2024 INFORMATION SOURCE (unrecogn ized section and content) DATE CREATED AUTHOR 07/13/2024 [facility] DATE CREATED AUTHOR AUTHOR'S ORGANIZ ATION 10/15/2024 [facility] DATE CREATED AUTHOR AUTHOR'S ORGANIZ ATION 11/05/2024 [facility] DATE CREATED AUTHOR AUTHOR'S ORGANIZ ATION 11/23/2024 [facility] MAIN FOR RECORDS PERTAINING TO PATIENTS WHO [...] BE BASED ON THE PRIMARY CLINICAL RECORDS. [facility] [employer] [facility]. provides no warranty or guarantee of the accuracy or completeness of information in this document.
[2024-11-30 19:29] LABS: Hematocrit 40.1 % (37-47); Hemoglobin 14.3 g/dL (12.0-15.0); Immature Granulocytes Count 0.010 X10^3/uL (0.0-0.0); Mean Corp Hgb Conc 35.7 g/dL (32-36); Mean Corpuscular Volume 95.5 fL (81-99); Mean Platelet Vol. 9.0 fl (6.2-12.0); NRBC Flagged by Analyzer 0 % (0-5); Platelet Count 153 K/mm3 (150-450); RBC Distribution Width CV 12.5 % (11.6-14.6); RBC Distribution Width SD 43.9 fl (35.1-43.9); Red Blood Count 4.20 M/mm3 (4.2-5.4); White Blood Count 5.4 K/mm3 (4.4-11.0)
[2024-11-30 19:56] LABS: Anion Gap 12 (5-15); BUN 13 mg/dL (4-19); BUN/Creat Ratio 14.5 RATIO (10-20); Calcium,Total 9.4 mg/dL (7.6-11.0); Carbon Dioxide 22.8 mmol/L (21.0-32.0); Chloride 103 mmol/L (98-108); Estimated Creatinine Clearance 61.55 ml/min (50-250); Glucose 196 mg/dL (70-99); Potassium 4.1 mmol/L (3.3-5.1)
[2024-11-30 20:00] VITALS: BP 168/68; PULSE 69; RESP 16; O2SAT 94
[2024-11-30 20:53] VITALS: BP 160/70; PULSE 68; RESP 16; O2SAT 95
[2024-11-30 21:06] VITALS: BP 148/68; PULSE 67; RESP 16; TEMP 36.7; O2SAT 97
== END 2024-11-30 21:15 | disposition home or self-care (01) ==
PROVIDERS: Emergency Provider Emergency Medicine; Visit Provider Emergency Medicine
DX: R53.1 Weakness (principal); C71.9 Malignant neoplasm of brain, unspecified; E11.9 Type 2 diabetes mellitus without complications; Z51.5 Encounter for palliative care; R27.0 Ataxia, unspecified; R29.6 Repeated falls
CPT/HCPCS: 70450; 80048; 85025; 99284

== ENCOUNTER → 2025-01-05 08:00 | Outpatient (REF) | payer MEDICARE, OTHER, SELFPAY | DX: R19.5 Other fecal abnormalities (principal) | CPT/HCPCS: 87493 ==